=== PATIENT | male | born 1965 | race Caucasian/White ===

== ENCOUNTER 2016-10-06 08:33 | Inpatient (IN) | payer BC ==
[2016-10-06 08:11] LABS: Glucose,Whole Blood 175 mg/dL (75-99)
[~2016-10-06 08:33] MED LIST: ASPIRIN 81 MG CHEW ONE; SODIUM CHLORIDE 0.9% 1,000 ML IV ONE
[2016-10-06] MEDS ORDERED: SODIUM CHLORIDE 0.9% 1,000 ML in EMPTY BAG 1 BAG IV ONE (09:00)
[2016-10-06] MEDS ORDERED: ALPRAZolam 0.25 MG TAB PO PRN (09:00)
[2016-10-06] MEDS ORDERED: ASPIRIN 325 MG TAB PO STA (09:00)
[2016-10-06] MEDS ORDERED: ATORVASTATIN 80 MG TAB PO STA (09:00)
[2016-10-06] MEDS ORDERED: ALPRAZolam 0.5 MG TAB PO PRN (09:00)
[2016-10-06] MEDS ORDERED: NITROGLYCERIN SL TABS 0.4 MG TAB SUBLINGUAL PRN (09:00)
[2016-10-06 11:27] LABS: Glucose,Whole Blood 272 mg/dL (75-99)
[2016-10-06] MEDS ORDERED: LIDOCAINE 2% INJ 20 MG/ML SQ ONE (11:40)
[2016-10-06] MEDS ORDERED: diphenhydrAMINE 50 MG/ML 1 ML VIAL IVP ONE (11:41)
[2016-10-06] MEDS ORDERED: MIDAZOLAM 2 MG/2 ML VIAL IV ONE (11:41)
[2016-10-06] MEDS ORDERED: IOHEXOL 350 MG/ML 100 ML BOTTLE INJ ONE (12:12)
[2016-10-06] MEDS ORDERED: NITROGLYCERIN SL TABS 0.4 MG TAB SUBLINGUAL ONE (12:12)
[2016-10-06 12:14] LABS: Site FA
[2016-10-06 12:15] LABS: Site RA
[2016-10-06 12:15] LABS: Site PA
[2016-10-06 12:16] LABS: Site RV
[2016-10-06] MEDS ORDERED: RX INFO: IV CONTRAST WAS GIVEN 1 EACH MISC MISCELLANE PRN (12:18)
[2016-10-06 14:03] LABS: ALT 43 U/L (21-72); AST 33 U/L (17-59); Alkaline Phosphatase 50 U/L (38-126); Anion Gap 11 mmol/L; Blood Urea Nitrogen 34 mg/dL (9-20); Calcium 8.8 mg/dL (8.4-10.2); Carbon Dioxide 23 mmol/L (22-30); Chloride 104 mmol/L (98-107); Glucose 225 mg/dL (74-99); Non-African American GFR(MDRD) >60 (>60 ml/min/1.73 sqM); Potassium 4.3 mmol/L (3.5-5.1); Sodium 138 mmol/L (137-145); Total Bilirubin 0.9 mg/dL (0.2-1.3); Total Protein 5.5 g/dL (6.3-8.2)
[2016-10-06 15:06] LABS: Basophils % (A) 0 %; CH 29.9; CHCM 34.5; Eosinophils % (A) 0 %; HDW 3.03; HGB 15.4 gm/dL (13.0-17.5); Luc # (Auto) 0.34; Luc % (Auto) 3; Lymphocytes # (A) 1.9 k/uL (1.0-4.8); Lymphocytes % (A) 17 %; MCH 29.2 pg (25.0-35.0); MCHC 33.4 g/dL (31.0-37.0); MCV 87.3 fL (80.0-100.0); Mean Platelet Volume 7.2; Monocytes # (A) 0.6 k/uL (0-1.0); Monocytes % (A) 6 %; Neutrophils # (A) 8.2 k/uL (1.3-7.7); Neutrophils % (A) 74 %; RBC 5.26 m/uL (4.30-5.90); RDW 13.8 % (11.5-15.5); WBC 11.1 k/uL (3.8-10.6)
--- NOTE | 2016-10-06 15:09 | P.CNPUL ---
History of Present Illness Consult date: 10/06/16 Reason for consult: dyspnea, cough, chest pain, asthma, COPD, hypoxemia, pneumonia Chief complaint: Shortness of breath and hemoptysis History of present illness: Mr. Matt Guerrero is a 50-year-old male who seen and evaluated examined on 66 floor selective care after his cardiac cath and angiogram which was found to have a diffuse coronary artery disease patient is being considered for possibly CABG 4 by cardiothoracic surgery. This patient has not been doing well for almost 4 weeks with increased shortness breath cough. Sputum production lately has been associated with streaks of blood lately he's been more short of breath started having intermittent chest pain about a week prior to coming hospital started to have left shortness of breath patient admitted into the [facility] with uncontrolled hyperglycemia hemoptysis and very high elevated troponin up to 3 patient had hypertensive urgency and emergency as well however responded well with IV steroids insulin drip and nitro heparin and breathing treatments his hemoptysis is resolved his shortness of breath cough and wheezing improved and his blood pressure improved as well at that point decision was done to transfer the patient into the [facility] for cardiac cath and angiogram. Patient of note that has been a noncompliant has not been taking care of himself the problems associated with the hemoptysis cough shortness of breath and wheezing and diabetes has been relish continued to him he has not seen any doctor physician for many many years Review of Systems All systems: negative (Otherwise unremarkable and noncontributory) Past Medical History Past Medical History: Asthma, COPD, Diabetes Mellitus, GERD/Reflux, Hyperlipidemia, Hypertension Additional Past Medical History / Comment(s): bipolar (manic/depressive) History of Any Multi-Drug Resistant Organisms: None Reported Past Surgical History: Appendectomy Past Psychological History: Bipolar Smoking Status: Former smoker Medications and Allergies Home Medications Medication Instructions Recorded Confirmed Type Albuterol Inhaler [Ventolin Hfa 2 puff INHALATION RT-QID PRN 10/06/16 10/06/16 History Inhaler] Albuterol Nebulized [Ventolin 2.5 mg INHALATION RT-Q6H PRN 10/06/16 10/06/16 History Nebulized] Cetirizine HCl [Zyrtec] 10 mg PO DAILY 10/06/16 10/06/16 History Omeprazole 20 mg PO DAILY 10/06/16 10/06/16 History Allergies Allergy/AdvReac Type Severity Reaction Status Date / Time No Known Allergies Allergy Verified 10/06/16 14:21 Physical Exam Vitals: Vital Signs Temp Pulse Resp BP BP Pulse Ox 10/06/16 13:37 97.2 F L 18 136/85 98 10/06/16 07:56 98.0 F 93 18 128/85 135/90 97 Intake and Output 10/05/16 10/06/16 10/06/16 22:59 06:59 14:59 Intake Total 100 Balance 100 Intake: IV 100 Other: Weight 88.4 kg Patient Weight 10/07/16 06:59 Weight 88.4 kg - Constitutional General appearance: average body habitus, cooperative, disheveled, mild distress - EENT Eyes: EOMI, PERRLA, normal appearance ENT: hearing grossly normal, normal oropharynx Ears: bilateral: normal - Neck Neck: lymphadenopathy, normal ROM Carotids: bilateral: upstroke normal, bruit absent Thyroid: bilateral: normal size - Respiratory Respiratory: bilateral: wheezing (Fine wheezing on forced expiration), prolonged expiration - Cardiovascular Rhythm: regular Heart sounds: normal: S1, S2 - Gastrointestinal General gastrointestinal: distended, normal bowel sounds, soft - Integumentary Integumentary: calor, normal - Neurologic Neurologic: CNII-XII intact - Musculoskeletal Musculoskeletal: gait normal, strength equal bilaterally - Psychiatric Psychiatric: A&O x's 3, appropriate affect, intact judgment & insight Results - Laboratory Findings CBC and BMP: 10/06/16 13:38 Abnormal lab findings: Abnormal Labs 10/06/16 10/06/16 10/06/16 07:59 11:09 13:38 BUN 34 H Glucose 225 H POC Glucose (mg/dL) 175 H 272 H Total Protein 5.5 L Albumin 3.3 L Assessment and Plan Plan: Acute PR and diffuse coronary artery disease Hypertension hypertensive cardiovascular disease Dyslipidemia Diabetes mellitus poorly controlled type II with complications and sequelae Severe COPD emphysema Plan is to continue breathing treatments will hold on the steroids continue deep breathing exercises incentive spirometry would recommend proceeding with the surgery given diffuse coronary artery disease will follow clinical course closely and 3. Postoperative phase Time with Patient: Greater than 30
--- NOTE | 2016-10-06 15:33 | P.GSCN ---
<Kaz Avila - Last Filed: 10/06/16 14:24> History of Present Illness Consult date: 10/06/16 Reason for Consult: Non-STEMI, triple-vessel coronary artery disease. Requesting physician: Akosua Whelan History of present illness: This is a 50-year-old gentleman who does not follow with a primary care physician on a regular basis. He has past medical history of diabetes mellitus type 2 uncontrolled, hypertension, COPD, bipolar disorder, kidney stones, pneumonia over 10 years ago, and history of nicotine dependence which he quit 10 years ago. He also has a history of alcohol and drug addiction which he states that he has been in recovery for about 13 years. On 10/04/2016 the patient presented to the emergency department at [facility] with complaints of chest pain and worsening shortness of breath. He reports that he has been having chest pain and shortness of breath for a period of 4-6 weeks prior to presenting to the hospital. His shortness of breath was worse while lying flat. He also reports that he had quite severe edema to his bilateral lower extremities. The patient had a 12-lead EKG completed in the emergency department which showed anterior Q wave and was suggestive of a subacute myocardial infarction without ST elevation and nonspecific STT changes.patient also had lab work completed with a troponin as high as 3.34, hemoglobin A1c of 10.3, BUN of 23, creatinine of 0.99, WBC 14.8, hemoglobin 17.1, platelets were 227, and a BNP of 471. The patient also had a 2-D echocardiogram completed which showed trace aortic regurgitation, mild mitral valve regurgitation, trace tricuspid regurgitation, and a normal left ventricular size with moderate to severe hypokinesis in the apical inferior wall, apical septal wall, and apical lateral wall with an ejection fraction of 40%. The patient was admitted to [facility] for further treatment and evaluation and was started on a Lasix drip, beta caleb, ARB, aspirin and statin therapy. Subsequently he was transferred to [facility] for further cardiac workup and underwent a heart catheterization which demonstrated a 70% stenosis to his right coronary artery, 100% stenosis to his circumflex coronary artery, and a totally occluded left anterior descending coronary artery. Also during heart catheterization he underwent a left ventriculogram which showed him to have an ejection fraction of 35%. Due to his presenting symptoms and heart catheterization results a consult was placed for Dr. Klein from cardiothoracic surgery to discuss surgical options. Review of Systems A 14 point review of systems was completed and was negative except as mentioned in the HPI. Past Medical History Past Medical History: COPD, Diabetes Mellitus, GERD/Reflux, Hypertension, Myocardial Infarction (non Q-wave) Additional Past Medical History / Comment(s): bipolar (manic/depressive) History of Any Multi-Drug Resistant Organisms: None Reported Past Surgical History: Appendectomy, Orthopedic Surgery (Repair of left femur fracture) Past Anesthesia/Blood Transfusion Reactions: No Reported Reaction Past Psychological History: Bipolar Smoking Status: Former smoker (Quit 10 years ago he smoked 20 years prior to quitting) Past Alcohol Use History: None Reported (He is a recovering alcoholic 13 years) Past Drug Use History: None Reported (He has been in recovery for 13 years) - Past Family History Mother Family Medical History: COPD, GERD/Reflux, Hypertension Father Family Medical History: Cancer (Tongue cancer and history of prostate cancer), COPD, Coronary Artery Disease (CAD) (History of 5 stents), Diabetes Mellitus, Pneumonia, Prostate Disorder Additional Family Medical History / Comment(s): Bipolar disorder Medications and Allergies Home Medications Medication Instructions Recorded Confirmed Type Albuterol Inhaler [Ventolin Hfa 2 puff INHALATION RT-QID PRN 10/06/16 10/06/16 History Inhaler] Albuterol Nebulized [Ventolin 2.5 mg INHALATION RT-Q6H PRN 10/06/16 10/06/16 History Nebulized] Cetirizine HCl [Zyrtec] 10 mg PO DAILY 10/06/16 10/06/16 History Omeprazole 20 mg PO DAILY 10/06/16 10/06/16 History Allergies Allergy/AdvReac Type Severity Reaction Status Date / Time No Known Allergies Allergy Verified 10/10/16 06:26 Surgical - Exam Vital Signs Temp Pulse Resp BP Pulse Ox 98.0 F 93 18 128/85 97 10/06/16 07:56 10/06/16 07:56 10/06/16 07:56 10/06/16 07:56 10/06/16 07:56 - General well developed, well nourished, no distress, no pain, obese - Eyes PERRL, normal ocular movement - ENT normal pinna, normal nares, no hearing loss, no congestion, poor intermediate ( Missing teeth and evidence of decayed teeth) - Neck no masses, no bruits, trachea midline, no lymphadectomy, no venous distension - Respiratory normal expansion, normal respiratory effort, clear to percussion, clear to auscultation - Cardiovascular Regular rhythm and tachycardic rate. S1 and S2 present, negative for S3, gallop or murmur. No edema present. Remote telemetry showing sinus tachycardia heart rate 111. - Abdomen No organomegaly. Abdomen: soft, non tender, bowel sounds (To all 4 abdominal quadrants.) - Genitourinary Deferred - Rectum Deferred - Integumentary Patient has an ecchymotic and swollen area to his right forearm. no rash, no growths - Neurologic normal coordination, normal sensation - Musculoskeletal normal gait, normal posture - Psychiatric oriented to time, oriented to person, oriented to place, speech is normal, memory intact Results - Labs 10/06/16 13:38 Abnormal Lab Results - Last 24 Hours (Table) 10/06/16 10/06/16 10/06/16 Range/Units 07:59 11:09 13:38 BUN 34 H (9-20) mg/dL Glucose 225 H (74-99) mg/dL POC Glucose (mg/dL) 175 H 272 H (75-99) mg/dL Total Protein 5.5 L (6.3-8.2) g/dL Albumin 3.3 L (3.5-5.0) g/dL Diabetes panel 10/06/16 Range/Units 13:38 Sodium 138 (137-145) mmol/L Potassium 4.3 (3.5-5.1) mmol/L Chloride 104 (98-107) mmol/L Carbon Dioxide 23 (22-30) mmol/L BUN 34 H (9-20) mg/dL Creatinine 0.98 (0.66-1.25) mg/dL Glucose 225 H (74-99) mg/dL Calcium 8.8 (8.4-10.2) mg/dL AST 33 (17-59) U/L ALT 43 (21-72) U/L Alkaline Phosphatase 50 (38-126) U/L Total Protein 5.5 L (6.3-8.2) g/dL Albumin 3.3 L (3.5-5.0) g/dL Calcium panel 10/06/16 Range/Units 13:38 Calcium 8.8 (8.4-10.2) mg/dL Albumin 3.3 L (3.5-5.0) g/dL Pituitary panel 10/06/16 Range/Units 13:38 Sodium 138 (137-145) mmol/L Potassium 4.3 (3.5-5.1) mmol/L Chloride 104 (98-107) mmol/L Carbon Dioxide 23 (22-30) mmol/L BUN 34 H (9-20) mg/dL Creatinine 0.98 (0.66-1.25) mg/dL Glucose 225 H (74-99) mg/dL Calcium 8.8 (8.4-10.2) mg/dL Adrenal panel 10/06/16 Range/Units 13:38 Sodium 138 (137-145) mmol/L Potassium 4.3 (3.5-5.1) mmol/L Chloride 104 (98-107) mmol/L Carbon Dioxide 23 (22-30) mmol/L BUN 34 H (9-20) mg/dL Creatinine 0.98 (0.66-1.25) mg/dL Glucose 225 H (74-99) mg/dL Calcium 8.8 (8.4-10.2) mg/dL Total Bilirubin 0.9 (0.2-1.3) mg/dL AST 33 (17-59) U/L ALT 43 (21-72) U/L Alkaline Phosphatase 50 (38-126) U/L Total Protein 5.5 L (6.3-8.2) g/dL Albumin 3.3 L (3.5-5.0) g/dL - Imaging Comments: 2-D echocardiogram report reviewed, cardiac catheterization report reviewed. Chest x-ray: report reviewed EKG: image reviewed Assessment and Plan (1) Non-STEMI (non-ST elevated myocardial infarction) Status: Acute (2) Coronary artery disease Status: Acute (3) Hypertension Status: Acute (4) COPD (chronic obstructive pulmonary disease) Status: Acute (5) Uncontrolled type 2 diabetes mellitus Status: Acute (6) GERD (gastroesophageal reflux disease) Status: Acute (7) Hemoglobin A1C greater than 9%, indicating poor diabetic control Status: Acute (8) CHF NYHA class III (symptoms with mildly strenuous activities) Status: Acute Plan: Patient was seen and examined. Chart and diagnostics were reviewed. The case was discussed with Dr. Klein and further surgical recommendations will be made. Preoperative testing and diagnostics have been ordered. Preoperative teaching initiated with the patient and his family who were at his bedside. All questions have been answered. Incentive spirometry ordered. Thank Dr. JEFF Whelan for the consult we look forward to working with you in the care of your patient. Time with Patient: Greater than 30 <Ramesh Klein - Last Filed: 10/12/16 10:44> Surgical - Exam Vital Signs Temp Pulse Resp BP Pulse Ox 98.0 F 93 18 128/85 97 10/06/16 07:56 10/06/16 07:56 10/06/16 07:56 10/06/16 07:56 10/06/16 07:56 Results - Labs 10/12/16 04:45 10/12/16 04:45 Abnormal Lab Results - Last 24 Hours (Table) 10/10/16 10/10/16 10/10/16 Range/Units 08:38 09:48 10:43 WBC (3.8-10.6) k/uL RBC (4.30-5.90) m/uL Hgb (13.0-17.5) gm/dL Hct (39.0-53.0) % Plt Count (150-450) k/uL Neutrophils # (1.3-7.7) k/uL Monocytes # (0-1.0) k/uL INR (<1.2) ABG pH 7.34 L (7.35-7.45) ABG pCO2 46 H (35-45) mmHg ABG pO2 319 H 183 H (83-108) mmHg ABG HCO3 (21-25) mmol/L ABG Total CO2 26 H 26 H (19-24) mmol/L ABG O2 Saturation 99.9 H 97.2 H 99.7 H (94-97) % ABG Hematocrit (34.0-46.0) % ABG Potassium (3.4-4.5) mmol/L Creatinine (0.66-1.25) mg/dL Glucose (74-99) mg/dL POC Glucose (mg/dL) (75-99) mg/dL Total Protein (6.3-8.2) g/dL Albumin (3.5-5.0) g/dL Triglycerides (<150) mg/dL HDL Cholesterol (40-60) mg/dL Arterial Blood Potassium (3.4-4.5) mmol/L 10/10/16 10/10/16 10/11/16 Range/Units 11:12 11:39 11:08 WBC (3.8-10.6) k/uL RBC (4.30-5.90) m/uL Hgb (13.0-17.5) gm/dL Hct (39.0-53.0) % Plt Count (150-450) k/uL Neutrophils # (1.3-7.7) k/uL Monocytes # (0-1.0) k/uL INR (<1.2) ABG pH 7.30 L (7.35-7.45) ABG pCO2 54 H (35-45) mmHg ABG pO2 252 H 187 H (83-108) mmHg ABG HCO3 26 H (21-25) mmol/L ABG Total CO2 28 H 26 H (19-24) mmol/L ABG O2 Saturation 99.8 H 99.6 H (94-97) % ABG Hematocrit 29 L 30 L (34.0-46.0) % ABG Potassium 5.0 H 4.9 H (3.4-4.5) mmol/L Creatinine (0.66-1.25) mg/dL Glucose (74-99) mg/dL POC Glucose (mg/dL) 172 H (75-99) mg/dL Total Protein (6.3-8.2) g/dL Albumin (3.5-5.0) g/dL Triglycerides (<150) mg/dL HDL Cholesterol (40-60) mg/dL Arterial Blood Potassium 5.0 H 4.9 H (3.4-4.5) mmol/L 10/11/16 10/11/16 10/11/16 Range/Units 12:24 13:05 14:05 WBC (3.8-10.6) k/uL RBC (4.30-5.90) m/uL Hgb (13.0-17.5) gm/dL Hct (39.0-53.0) % Plt Count (150-450) k/uL Neutrophils # (1.3-7.7) k/uL Monocytes # (0-1.0) k/uL INR (<1.2) ABG pH (7.35-7.45) ABG pCO2 (35-45) mmHg ABG pO2 (83-108) mmHg ABG HCO3 (21-25) mmol/L ABG Total CO2 (19-24) mmol/L ABG O2 Saturation (94-97) % ABG Hematocrit (34.0-46.0) % ABG Potassium (3.4-4.5) mmol/L Creatinine (0.66-1.25) mg/dL Glucose (74-99) mg/dL POC Glucose (mg/dL) 174 H 171 H 180 H (75-99) mg/dL Total Protein (6.3-8.2) g/dL Albumin (3.5-5.0) g/dL Triglycerides (<150) mg/dL HDL Cholesterol (40-60) mg/dL Arterial Blood Potassium (3.4-4.5) mmol/L 10/11/16 10/11/16 10/11/16 Range/Units 15:05 16:14 17:50 WBC (3.8-10.6) k/uL RBC (4.30-5.90) m/uL Hgb (13.0-17.5) gm/dL Hct (39.0-53.0) % Plt Count (150-450) k/uL Neutrophils # (1.3-7.7) k/uL Monocytes # (0-1.0) k/uL INR (<1.2) ABG pH 7.48 H (7.35-7.45) ABG pCO2 (35-45) mmHg ABG pO2 74 L (83-108) mmHg ABG HCO3 26 H (21-25) mmol/L ABG Total CO2 27 H (19-24) mmol/L ABG O2 Saturation (94-97) % ABG Hematocrit (34.0-46.0) % ABG Potassium (3.4-4.5) mmol/L Creatinine (0.66-1.25) mg/dL Glucose (74-99) mg/dL POC Glucose (mg/dL) 180 H 179 H (75-99) mg/dL Total Protein (6.3-8.2) g/dL Albumin (3.5-5.0) g/dL Triglycerides (<150) mg/dL HDL Cholesterol (40-60) mg/dL Arterial Blood Potassium (3.4-4.5) mmol/L 10/11/16 10/11/16 10/11/16 Range/Units 18:51 20:09 22:03 WBC (3.8-10.6) k/uL RBC (4.30-5.90) m/uL Hgb (13.0-17.5) gm/dL Hct (39.0-53.0) % Plt Count (150-450) k/uL Neutrophils # (1.3-7.7) k/uL Monocytes # (0-1.0) k/uL INR (<1.2) ABG pH (7.35-7.45) ABG pCO2 (35-45) mmHg ABG pO2 (83-108) mmHg ABG HCO3 (21-25) mmol/L ABG Total CO2 (19-24) mmol/L ABG O2 Saturation (94-97) % ABG Hematocrit (34.0-46.0) % ABG Potassium (3.4-4.5) mmol/L Creatinine (0.66-1.25) mg/dL Glucose (74-99) mg/dL POC Glucose (mg/dL) 164 H 167 H 152 H (75-99) mg/dL Total Protein (6.3-8.2) g/dL Albumin (3.5-5.0) g/dL Triglycerides (<150) mg/dL HDL Cholesterol (40-60) mg/dL Arterial Blood Potassium (3.4-4.5) mmol/L 10/12/16 10/12/16 10/12/16 Range/Units 00:27 02:33 04:45 WBC (3.8-10.6) k/uL RBC (4.30-5.90) m/uL Hgb (13.0-17.5) gm/dL Hct (39.0-53.0) % Plt Count (150-450) k/uL Neutrophils # (1.3-7.7) k/uL Monocytes # (0-1.0) k/uL INR (<1.2) ABG pH (7.35-7.45) ABG pCO2 (35-45) mmHg ABG pO2 (83-108) mmHg ABG HCO3 (21-25) mmol/L ABG Total CO2 (19-24) mmol/L ABG O2 Saturation (94-97) % ABG Hematocrit (34.0-46.0) % ABG Potassium (3.4-4.5) mmol/L Creatinine 0.60 L (0.66-1.25) mg/dL Glucose 169 H (74-99) mg/dL POC Glucose (mg/dL) 147 H 169 H (75-99) mg/dL Total Protein 4.6 L (6.3-8.2) g/dL Albumin 2.8 L (3.5-5.0) g/dL Triglycerides (<150) mg/dL HDL Cholesterol (40-60) mg/dL Arterial Blood Potassium (3.4-4.5) mmol/L 10/12/16 10/12/16 10/12/16 Range/Units 04:45 04:45 04:45 WBC 13.0 H (3.8-10.6) k/uL RBC 3.13 L (4.30-5.90) m/uL Hgb 9.5 L (13.0-17.5) gm/dL Hct 27.0 L (39.0-53.0) % Plt Count 112 L (150-450) k/uL Neutrophils # 10.3 H (1.3-7.7) k/uL Monocytes # 1.2 H (0-1.0) k/uL INR 1.2 H (<1.2) ABG pH (7.35-7.45) ABG pCO2 (35-45) mmHg ABG pO2 (83-108) mmHg ABG HCO3 (21-25) mmol/L ABG Total CO2 (19-24) mmol/L ABG O2 Saturation (94-97) % ABG Hematocrit (34.0-46.0) % ABG Potassium (3.4-4.5) mmol/L Creatinine (0.66-1.25) mg/dL Glucose (74-99) mg/dL POC Glucose (mg/dL) 178 H (75-99) mg/dL Total Protein (6.3-8.2) g/dL Albumin (3.5-5.0) g/dL Triglycerides (<150) mg/dL HDL Cholesterol (40-60) mg/dL Arterial Blood Potassium (3.4-4.5) mmol/L 10/12/16 10/12/16 10/12/16 Range/Units 04:45 06:01 08:21 WBC (3.8-10.6) k/uL RBC (4.30-5.90) m/uL Hgb (13.0-17.5) gm/dL Hct (39.0-53.0) % Plt Count (150-450) k/uL Neutrophils # (1.3-7.7) k/uL Monocytes # (0-1.0) k/uL INR (<1.2) ABG pH (7.35-7.45) ABG pCO2 (35-45) mmHg ABG pO2 (83-108) mmHg ABG HCO3 (21-25) mmol/L ABG Total CO2 (19-24) mmol/L ABG O2 Saturation (94-97) % ABG Hematocrit (34.0-46.0) % ABG Potassium (3.4-4.5) mmol/L Creatinine (0.66-1.25) mg/dL Glucose (74-99) mg/dL POC Glucose (mg/dL) 187 H 193 H (75-99) mg/dL Total Protein (6.3-8.2) g/dL Albumin (3.5-5.0) g/dL Triglycerides 163 H (<150) mg/dL HDL Cholesterol 19 L (40-60) mg/dL Arterial Blood Potassium (3.4-4.5) mmol/L 10/12/16 Range/Units 08:58 WBC (3.8-10.6) k/uL RBC (4.30-5.90) m/uL Hgb (13.0-17.5) gm/dL Hct (39.0-53.0) % Plt Count (150-450) k/uL Neutrophils # (1.3-7.7) k/uL Monocytes # (0-1.0) k/uL INR (<1.2) ABG pH (7.35-7.45) ABG pCO2 (35-45) mmHg ABG pO2 (83-108) mmHg ABG HCO3 (21-25) mmol/L ABG Total CO2 (19-24) mmol/L ABG O2 Saturation (94-97) % ABG Hematocrit (34.0-46.0) % ABG Potassium (3.4-4.5) mmol/L Creatinine (0.66-1.25) mg/dL Glucose (74-99) mg/dL POC Glucose (mg/dL) 187 H (75-99) mg/dL Total Protein (6.3-8.2) g/dL Albumin (3.5-5.0) g/dL Triglycerides (<150) mg/dL HDL Cholesterol (40-60) mg/dL Arterial Blood Potassium (3.4-4.5) mmol/L Diabetes panel 10/12/16 10/12/16 Range/Units 04:45 04:45 Sodium 139 (137-145) mmol/L Potassium 3.7 (3.5-5.1) mmol/L Chloride 106 (98-107) mmol/L Carbon Dioxide 25 (22-30) mmol/L BUN 18 (9-20) mg/dL Creatinine 0.60 L (0.66-1.25) mg/dL Glucose 169 H (74-99) mg/dL Calcium 8.5 (8.4-10.2) mg/dL AST 44 (17-59) U/L ALT 41 (21-72) U/L Alkaline Phosphatase 40 (38-126) U/L Total Protein 4.6 L (6.3-8.2) g/dL Albumin 2.8 L (3.5-5.0) g/dL Triglycerides 163 H (<150) mg/dL HDL Cholesterol 19 L (40-60) mg/dL Calcium panel 10/12/16 Range/Units 04:45 Calcium 8.5 (8.4-10.2) mg/dL Ionized Calcium [place]helle 4.9 (4.5-5.3) mg/dL Albumin 2.8 L (3.5-5.0) g/dL Pituitary panel 10/12/16 Range/Units 04:45 Sodium 139 (137-145) mmol/L Potassium 3.7 (3.5-5.1) mmol/L Chloride 106 (98-107) mmol/L Carbon Dioxide 25 (22-30) mmol/L BUN 18 (9-20) mg/dL Creatinine 0.60 L (0.66-1.25) mg/dL Glucose 169 H (74-99) mg/dL Calcium 8.5 (8.4-10.2) mg/dL Adrenal panel 10/12/16 Range/Units 04:45 Sodium 139 (137-145) mmol/L Potassium 3.7 (3.5-5.1) mmol/L Chloride 106 (98-107) mmol/L Carbon Dioxide 25 (22-30) mmol/L BUN 18 (9-20) mg/dL Creatinine 0.60 L (0.66-1.25) mg/dL Glucose 169 H (74-99) mg/dL Calcium 8.5 (8.4-10.2) mg/dL Total Bilirubin 0.8 (0.2-1.3) mg/dL AST 44 (17-59) U/L ALT 41 (21-72) U/L Alkaline Phosphatase 40 (38-126) U/L Total Protein 4.6 L (6.3-8.2) g/dL Albumin 2.8 L (3.5-5.0) g/dL Assessment and Plan Plan: The patient was seen and examined. I agree with the above assessment and plan. The patient's cardiac catheterization was personally reviewed. He does appear to have targets suitable for bypass. A coronary artery bypass is recommended. The risks, benefits, and alternatives to this procedure including but not limited to the risk of infection, bleeding, need for blood transfusion, stroke, myocardial infarction, pneumonia, dialysis, and were discussed with the patient and his mother. All their questions were answered. The patient is currently symptom free and hemodynamically stable. We will plan on performing his procedure on October 10.
[2016-10-06 15:57] LABS: Cholesterol 200 mg/dL (<200); HDL Cholesterol 35 mg/dL (40-60)
[2016-10-06] MEDS: SODIUM CHLORIDE 0.9% 1,000 ML IV SCH (16:03)
[2016-10-06 16:06] LABS: INR 1.1 (<1.2); Prothrombin Time 11.3 sec (9.0-12.0)
[2016-10-06 16:12] LABS: Partial Thromboplastin Time 21.5 sec (22.0-30.0)
[2016-10-06 16:26] LABS: Appearance,Urine Clear (Clear); Bilirubin,Urine Negative (Negative); Glucose,Urine (UA) 3+ (Negative); Ketones,Urine Negative (Negative); Leukocyte Esterase,Urine Negative (Negative); Nitrite,Urine Negative (Negative); PH, Urine 5.5 (5.0-8.0); Protein,Urine Negative (Negative); Specific Gravity,Urine 1.039 (1.001-1.035); UA Billing (MACRO vs. MICRO) CHEM; Urobilinogen,Urine <2.0 mg/dL (<2.0)
[2016-10-06 16:29] LABS: Hepatitis B Surface Ag Index 0.05
[2016-10-06 16:34] LABS: Hepatitis B Core IgM Index 0.01
[2016-10-06] MEDS: FUROSEMIDE 20 MG TAB PO SCH (16:43)
[2016-10-06] MEDS: INSULIN LISPRO (humaLOG) 300 UNIT/3 ML VIAL SQ SCH ×2 (16:43→21:39)
[2016-10-06] MEDS: CARVEDILOL 6.25 MG TAB PO SCH (16:44)
[2016-10-06 16:46] LABS: Hepatitis C Virus IgG Ab Negative (Negative); Hepatitis C Virus IgG Index 0.03
[2016-10-06 17:03] LABS: Glucose,Whole Blood 256 mg/dL (75-99)
[2016-10-06] MEDS ORDERED: INSULIN LISPRO (humaLOG) 300 UNIT/3 ML VIAL SQ SCH ×2 (17:30)
[2016-10-06 19:53] LABS: Hemoglobin A1C 10.4 % (4.2-6.1)
[2016-10-06] MEDS: HEPARIN SODIUM,PORCINE 5,000 UNIT/ML 1 ML VIAL SQ SCH (20:15)
[2016-10-06] MEDS: MUPIROCIN 2% OINT 22 GM TUBE NASAL SCH (20:19)
[2016-10-06 20:51] LABS: Glucose,Whole Blood 359 mg/dL (75-99)
[2016-10-06] MEDS: INSULIN GLARGINE 100 UNIT/ML 10 ML VIAL SQ SCH (21:39)
[2016-10-07 05:47] LABS: Glucose,Whole Blood 201 mg/dL (75-99)
[2016-10-07] MEDS: SODIUM CHLORIDE 0.9% 1,000 ML IV SCH (06:17)
[2016-10-07] MEDS: CARVEDILOL 6.25 MG TAB PO SCH ×2 (06:20→16:23)
[2016-10-07] MEDS: INSULIN LISPRO (humaLOG) 300 UNIT/3 ML VIAL SQ SCH ×4 (06:20→22:18)
[2016-10-07 06:53] LABS: Basophils % (A) 0 %; CH 29.9; CHCM 35.2; Eosinophils # (A) 0.1 k/uL (0-0.7); Eosinophils % (A) 1 %; HCT 43.4 % (39.0-53.0); HDW 3.06; HGB 15.3 gm/dL (13.0-17.5); Luc # (Auto) 0.42; Luc % (Auto) 4; Lymphocytes % (A) 21 %; MCH 30.1 pg (25.0-35.0); MCHC 35.3 g/dL (31.0-37.0); MCV 85.3 fL (80.0-100.0); Monocytes # (A) 0.7 k/uL (0-1.0); Monocytes % (A) 8 %; Neutrophils # (A) 6.2 k/uL (1.3-7.7); Neutrophils % (A) 66 %; RBC 5.09 m/uL (4.30-5.90); RDW 13.3 % (11.5-15.5); WBC 9.5 k/uL (3.8-10.6); WBC (Perox) 9.73
[2016-10-07 07:01] LABS: Anion Gap 8 mmol/L; Blood Urea Nitrogen 34 mg/dL (9-20); Calcium 8.9 mg/dL (8.4-10.2); Carbon Dioxide 24 mmol/L (22-30); Chloride 104 mmol/L (98-107); Glucose 208 mg/dL (74-99); Non-African American GFR(MDRD) >60 (>60 ml/min/1.73 sqM); Potassium 3.8 mmol/L (3.5-5.1); Sodium 136 mmol/L (137-145)
[2016-10-07] MEDS: ATORVASTATIN 40 MG TAB PO SCH (07:41)
[2016-10-07] MEDS: HEPARIN SODIUM,PORCINE 5,000 UNIT/ML 1 ML VIAL SQ SCH ×2 (07:41→20:40)
[2016-10-07] MEDS: SPIRONOLACTONE 25 MG TAB PO SCH (07:41)
[2016-10-07] MEDS: FUROSEMIDE 20 MG TAB PO SCH ×2 (07:41→16:23)
[2016-10-07] MEDS: ASPIRIN 81 MG CHEW PO SCH (07:42)
[2016-10-07] MEDS: LOSARTAN 50 MG TAB PO SCH (07:42)
[2016-10-07] MEDS: MUPIROCIN 2% OINT 22 GM TUBE NASAL SCH ×2 (07:44→20:40)
--- NOTE | 2016-10-07 07:53 | US ---
EXAMINATION TYPE: US carotid duplex BILAT DATE OF EXAM: 10/06/2016 COMPARISON: NONE CLINICAL HISTORY: PreOp Cardiac Surgery. EXAM MEASUREMENTS: RIGHT: Peak Systolic Velocity (PSV) cm/sec ----- Right CCA: 107.5 ----- Right ICA: 63.7 ----- Right ECA: 118.1 ICA/CCA ratio: 0.9 RIGHT: End Diastole cm/sec ----- Right CCA: 15.9 ----- Right ICA: 27.7 ----- Right ECA: 0 LEFT: Peak Systolic Velocity (PSV) cm/sec ----- Left CCA: 97.4 ----- Left ICA: 65.0 ----- Left ECA: 101.5 ICA/CCA ratio: 0.7 LEFT: End Diastole cm/sec ----- Left CCA: 19.4 ----- Left ICA: 29.6 ----- Left ECA: 12.4 VERTEBRALS (direction of flow): Right Vertebral: Antegrade Left Vertebral: Antegrade No significant stenosis visualized IMPRESSION: 1. No evidence of hemodynamically significant stenosis. 2. Globally prominent peak systolic velocities may represent underlying hypertension.
--- NOTE | 2016-10-07 07:59 | XR ---
EXAMINATION TYPE: XR chest 2V DATE OF EXAM: 10/06/2016 COMPARISON: 10/06/2016 HISTORY: Preop surgical clearance TECHNIQUE: Frontal and lateral views of the chest are obtained. FINDINGS: There is no focal air space opacity or pneumothorax. Small bilateral pleural effusions are noted. The cardiac silhouette size is within normal limits. The osseous structures are intact. IMPRESSION: Small pleural effusions with no focal consolidation.
--- NOTE | 2016-10-07 08:53 | P.PN ---
Subjective Principal diagnosis: Patient seen and evaluated examined during the rounds he is breathing comfortably cough congestion shortness of breath is there but stable and improved he is being evaluated by cardiothoracic surgery for bypass surgery, from respiratory standpoint doing relatively better. Patient has been evaluated by cardiothoracic surgery and cardiology their recommendations reviewed Mr. Matt Guerrero is a 50-year-old male who seen and evaluated examined on 66 floor selective care after his cardiac cath and angiogram which was found to have a diffuse coronary artery disease patient is being considered for possibly CABG 4 by cardiothoracic surgery. This patient has not been doing well for almost 4 weeks with increased shortness breath cough. Sputum production lately has been associated with streaks of blood lately he's been more short of breath started having intermittent chest pain about a week prior to coming hospital started to have left shortness of breath patient admitted into the [facility] with uncontrolled hyperglycemia hemoptysis and very high elevated troponin up to 3 patient had hypertensive urgency and emergency as well however responded well with IV steroids insulin drip and nitro heparin and breathing treatments his hemoptysis is resolved his shortness of breath cough and wheezing improved and his blood pressure improved as well at that point decision was done to transfer the patient into the [facility] for cardiac cath and angiogram. Patient of note that has been a noncompliant has not been taking care of himself the problems associated with the hemoptysis cough shortness of breath and wheezing and diabetes has been relish continued to him he has not seen any doctor physician for many many years As dictated above Objective - Vital Signs Vital signs: Vital Signs Temp 97.6 F 10/07/16 07:39 Pulse 92 10/07/16 07:49 Resp 16 10/07/16 07:39 BP 135/83 10/07/16 07:39 Pulse Ox 95 10/07/16 07:39 Intake & Output 10/06/16 10/07/16 10/07/16 18:59 06:59 18:59 Intake Total 100 900 Output Total 1400 Balance 100 -500 Weight 88.4 kg 89.1 kg Intake: IV 100 900 Sodium Chloride 0.9% 1, 900 000 ml @ 75 mls/hr IV . [id number] Rx#:[id number] Output: Urine 1400 Other: Voiding Method Toilet Urinal # Voids 1 - Exam - Constitutional General appearance: average body habitus, cooperative, disheveled, mild distress - EENT Eyes: EOMI, PERRLA, normal appearance ENT: hearing grossly normal, normal oropharynx Ears: bilateral: normal - Neck Neck: lymphadenopathy, normal ROM Carotids: bilateral: upstroke normal, bruit absent Thyroid: bilateral: normal size - Respiratory Respiratory: bilateral: wheezing (Fine wheezing on forced expiration), prolonged expiration - Cardiovascular Rhythm: regular Heart sounds: normal: S1, S2 - Gastrointestinal General gastrointestinal: distended, normal bowel sounds, soft - Integumentary Integumentary: calor, normal - Neurologic Neurologic: CNII-XII intact - Musculoskeletal Musculoskeletal: gait normal, strength equal bilaterally - Psychiatric Psychiatric: A&O x's 3, appropriate affect, intact judgment & insig - Labs CBC & Chem 7: 10/07/16 06:11 10/07/16 06:11 Labs: Abnormal Lab Results - Last 24 Hours (Table) 10/06/16 10/06/16 10/06/16 Range/Units 11:09 13:38 13:38 WBC 11.1 H (3.8-10.6) k/uL Neutrophils # 8.2 H (1.3-7.7) k/uL APTT (22.0-30.0) sec Sodium (137-145) mmol/L BUN 34 H (9-20) mg/dL Glucose 225 H (74-99) mg/dL POC Glucose (mg/dL) 272 H (75-99) mg/dL Hemoglobin A1c (4.2-6.1) % Total Protein 5.5 L (6.3-8.2) g/dL Albumin 3.3 L (3.5-5.0) g/dL Triglycerides (<150) mg/dL Cholesterol (<200) mg/dL LDL Cholesterol, Calc (0-99) mg/dL HDL Cholesterol (40-60) mg/dL Ur Specific Garrison (1.001-1.035) Urine Glucose (UA) (Negative) 10/06/16 10/06/16 10/06/16 Range/Units 13:38 13:38 13:38 WBC (3.8-10.6) k/uL Neutrophils # (1.3-7.7) k/uL APTT 21.5 L (22.0-30.0) sec Sodium (137-145) mmol/L BUN (9-20) mg/dL Glucose (74-99) mg/dL POC Glucose (mg/dL) (75-99) mg/dL Hemoglobin A1c 10.4 H (4.2-6.1) % Total Protein (6.3-8.2) g/dL Albumin (3.5-5.0) g/dL Triglycerides 261 H (<150) mg/dL Cholesterol 200 H (<200) mg/dL LDL Cholesterol, Calc 113 H (0-99) mg/dL HDL Cholesterol 35 L (40-60) mg/dL Ur Specific Garrison (1.001-1.035) Urine Glucose (UA) (Negative) 10/06/16 10/06/16 10/06/16 Range/Units 15:52 16:42 20:48 WBC (3.8-10.6) k/uL Neutrophils # (1.3-7.7) k/uL APTT (22.0-30.0) sec Sodium (137-145) mmol/L BUN (9-20) mg/dL Glucose (74-99) mg/dL POC Glucose (mg/dL) 256 H 359 H (75-99) mg/dL Hemoglobin A1c (4.2-6.1) % Total Protein (6.3-8.2) g/dL Albumin (3.5-5.0) g/dL Triglycerides (<150) mg/dL Cholesterol (<200) mg/dL LDL Cholesterol, Calc (0-99) mg/dL HDL Cholesterol (40-60) mg/dL Ur Specific Garrison 1.039 H (1.001-1.035) Urine Glucose (UA) 3+ H (Negative) 10/07/16 10/07/16 Range/Units 05:46 06:11 WBC (3.8-10.6) k/uL Neutrophils # (1.3-7.7) k/uL APTT (22.0-30.0) sec Sodium 136 L (137-145) mmol/L BUN 34 H (9-20) mg/dL Glucose 208 H (74-99) mg/dL POC Glucose (mg/dL) 201 H (75-99) mg/dL Hemoglobin A1c (4.2-6.1) % Total Protein (6.3-8.2) g/dL Albumin (3.5-5.0) g/dL Triglycerides (<150) mg/dL Cholesterol (<200) mg/dL LDL Cholesterol, Calc (0-99) mg/dL HDL Cholesterol (40-60) mg/dL Ur Specific Garrison (1.001-1.035) Urine Glucose (UA) (Negative) Microbiology - Last 24 Hours (Table) 10/06/16 16:41 Nasal Screen MRSA/MSSA ([place]) - Preliminary Nasal Swab 10/06/16 15:52 Urine Culture - Preliminary Urine,Clean Catch Assessment and Plan Plan: Acute MN and diffuse coronary artery disease Hypertension hypertensive cardiovascular disease Dyslipidemia Diabetes mellitus poorly controlled type II with complications and sequelae Severe COPD and emphysema Hemoptysis likely related to bronchial inflammation better under control no active process noted now Plan is to continue breathing treatments will hold on the steroids continue deep breathing exercises incentive spirometry would recommend proceeding with the surgery given diffuse coronary artery disease will follow clinical course closely during pre-, Tiffanie and Postoperative phase Time with Patient: Greater than 30
[2016-10-07 11:47] LABS: Glucose,Whole Blood 343 mg/dL (75-99)
--- NOTE | 2016-10-07 12:36 | CC ---
DATE OF SERVICE: 10/06/2016 PROCEDURE: Right and left heart catheterization, coronary angiography and left ventriculography. PERFORMED BY: Dr. Alireza Whelan. CLINICAL INFORMATION: Mr. Matt Guerrero is a 50 -year-old gentleman with history of Type 2 diabetes, bronchial asthma who never took care of himself and never took any medications, came into the hospital with congestive heart failure. He was admitted to [facility] [place] about 48 hours ago with what appeared to be a subacute myocardial infarction of at least one week duration with troponins that showed already a downward trend. He was in significant heart failure which was addressed aggressively. After clearing from the heart failure, and symptomatically he was stable and better, he was brought over for coronary angiography. Risks, benefits, option and rationale were explained to the patient and family. PROCEDURE NOTE: Under local anesthesia and strict aseptic precautions, a 6 Ethiopian introducer was placed in the right femoral artery and an 8 Ethiopian introducer in the right femoral vein. Using a balloon tipped ( ) catheter, I performed right heart catheterization and obtained thermal dilution cardiac output as well as saturations. Subsequently, I performed coronary angiography with standard Mario catheter and a pigtail catheter was used to perform LV gram. The sheath was taken out and manual compression was used to secure hemostasis. He was sent to the room in stable condition. The findings and results were discussed with the patient and family members. CARDIAC CATHETERIZATION FINDINGS: The left ventricle end diastolic pressure was about 22 mmHg and there was no gradient across the aortic valve. The right atrial pressure was 5 mmHg, right ventricular pressure was 36/5. Pulmonary arterial pressure was 36/16 with a mean of 26. Pulmonary capillary wedge pressure was 16 mmHg. Thermal dilution cardiac output was 5.1 L and Tika cardiac output was 5.3 L. The femoral arterial saturation was 94% and pulmonary arterial saturation was 70%. There was no oxygen stepoff noted. CORONARY ANGIOGRAPHY FINDINGS: Right coronary artery is technically a very dominant vessel, has proximal stenosis of 70 to 80%, mid stenosis of another 70 to 80% and then bifurcates into PDA and PLV. The PLV is large and disease free with minor irregularities. PDA has 40% mid lesion but is also a good caliber good distribution vessel. The dominant RCA therefore is highly diseased in the proximal as well as mid portion but the distal segment is free and bypassable and both branches do not have critical lesions but PLV is a larger branch. Left main coronary artery: This is a diffusely diseased vessel, has no critical lesions, maybe 20 to 25% narrowing noted distally. It bifurcates into LAD and circumflex. Left anterior descending coronary artery: This vessel is totally occluded in the mid portion but prior to the total occlusion, there are two good sized diagonal branches that have diffuse disease and mild calcification but both of them appear to be graftable. There are two large septal branches that have disease in the proximal portion but supply fair amount of myocardium. The LAD is totally occluded after the second diagonal branch but there is 90% lesion before the second diagonal branch as well. On injection of the left coronary artery, there is a lead filling of the LAD seen distally and this is supplying an area of significant hypokinesia but this is probably a graftable LAD. The diagonals have independent lesions. LAD is subtotally occluded with a very slow sluggish flow distally. Left posterior circumflex coronary artery: Technically this is a nondominant vessel which gives off what seems to be one obtuse marginal proximally and then there is not much flow distally. This does not appear to be a graftable vessel. The caliber of the circumflex that is opacified which is totally occluded is fairly large. LEFT VENTRICULOGRAM: This was performed in 30 degree WALTERS projection and revealed a left ventricle which is upper limits of normal with anteroapical and inferoapical hypokinesia of a severe degree. The anterior apical wall appears to be almost akinetic and the inferior apical is hypokinetic. There is no significant mitral regurgitation noted. The ejection fraction is between 35 to 40% by visual inspection. FINAL IMPRESSION: This patient has severe triple vessel disease with total occlusion of the mid LAD and proximal circumflex. The two diagonal branches of the LAD are graftable. The RCA has significant lesion. It is a very dominant vessel. There is a proximal and mid lesion but the branches of the RCA are relatively disease free and distal RCA is graftable. There is an ejection fraction of 35 to 40% with elevated filling pressures. There is no significant pulmonary hypertension. Cardiac output is 5.3 L and there is no oxygen stepoff. RECOMMENDATIONS: This patient will benefit from aortic coronary bypass surgery with grafts to the two diagonal branches and distal branch of the distal RCA and possibly to the LAD as well. The findings were discussed with the patient and family. I also spoke to Dr. Trae Magana. This patients blood sugar control needs to be optimized prior to any surgery. This has to be addressed to help in the outcome of surgery as well. This was explained to the patient and family. He will be sent to telemetry unit. Moderate conscious sedation was provided for a total duration of about 35 minutes. The patient was given Benadryl and Versed. He tolerated the procedure well without complications. SUKHDEEP
--- NOTE | 2016-10-07 13:35 | HP ---
CHIEF COMPLAINT: NSTEMI triple vessel heart disease. 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 He was found to have acute NSTEMI, anterior wave and Q wave ( ) myocardial infarction NSTEMI. He was admitted to the hospital with troponin high at 3.34, A1c of 2.3 , creatinine 0.99. He was transferred over here for cardiac catheterization and was found to have triple vessel disease for which he was admitted to ICU at this time. ( ) ARB, statin therapy. Ejection fraction 40%, 70% stenosis right coronary, 100% circumflex, total occlusion LAD. Fourteen point review of systems negative except for as mentioned in HPI. PAST MEDICAL HISTORY: Uncontrolled diabetes mellitus, chronic obstructive pulmonary disease, GERD, hypertension, non-Q wave myocardial infarction, bipolar , ( ), appendectomy, orthopedic surgery, left femur fracture. Former smoker of 20-years, prior alcoholic recovered for 13 years. FAMILY HISTORY: Mother with chronic obstructive pulmonary disease, GERD, hypertension. Father with cancer of the tongue and prostate cancer, chronic obstructive pulmonary disease, coronary artery disease with 5 stents, diabetes mellitus, pneumonia, bipolar. MEDICATIONS: Omeprazole, sertraline, albuterol inhaler. ALLERGIES: NO KNOWN DRUG ALLERGIES. ( ) Temp 98, pulse 80s to 90s, respiratory 16 to 18, blood pressure 120s over 80s. O2 97% on room air. CARDIOVASCULAR: S1, S2. LUNGS: Transmitted upper airway sounds. Scattered wheeze x4. HEMATOLOGIC: Negative Homans. PSYCH: Fair mood and affect. NEUROLOGIC: Alert and oriented x3. OPHTHALMOLOGIC: Pupils equal and reactive to light and accommodation. Labs were reviewed. ASSESSMENT: 1. Non-ST elevation myocardial infarction, triple vessel heart disease. 2. Cardiomyopathy, ischemic. Patient will continue with Lantus or Levemir long acting. Will start 26 units a day and Accu-Chek protocol a.c. and at bedtime. Consultation, ARBs and statins will be continued. MTDD
[2016-10-07] MEDS ORDERED: MD COMMUNICATION TO PHARMACY 1 EACH MISC PO ONE ×2 (15:41)
--- NOTE | 2016-10-07 16:10 | P.PN ---
<Kaz Avila - Last Filed: 10/07/16 16:08> Subjective Principal diagnosis: Coronary artery disease, Non-STEMI, hypertension, dyslipidemia, diabetes mellitus poorly controlled type II with an admission hemoglobin A1c of 10.4, severe COPD, and GERD. This is a 50-year-old gentleman who does not follow with a primary care physician on a regular basis. He has past medical history of diabetes mellitus type 2 uncontrolled, hypertension, COPD, bipolar disorder, kidney stones, pneumonia over 10 years ago, and history of nicotine dependence which he quit 10 years ago. He also has a history of alcohol and drug addiction which he states that he has been in recovery for about 13 years. On 10/04/2016 the patient presented to the emergency department at [facility] with complaints of chest pain and worsening shortness of breath. He reports that he has been having chest pain and shortness of breath for a period of 4-6 weeks prior to presenting to the hospital. His shortness of breath was worse while lying flat. He also reports that he had quite severe edema to his bilateral lower extremities. The patient had a 12-lead EKG completed in the emergency department which showed anterior Q wave and was suggestive of a subacute myocardial infarction without ST elevation and nonspecific STT changes.patient also had lab work completed with a troponin as high as 3.34, hemoglobin A1c of 10.3, BUN of 23, creatinine of 0.99, WBC 14.8, hemoglobin 17.1, platelets were 227, and a BNP of 471. The patient also had a 2-D echocardiogram completed which showed trace aortic regurgitation, mild mitral valve regurgitation, trace tricuspid regurgitation, and a normal left ventricular size with moderate to severe hypokinesis in the apical inferior wall, apical septal wall, and apical lateral wall with an ejection fraction of 40%. The patient was admitted to [facility] for further treatment and evaluation and was started on a Lasix drip, beta caleb, ARB, aspirin and statin therapy. Subsequently he was transferred to [facility] for further cardiac workup and underwent a heart catheterization which demonstrated a 70% stenosis to his right coronary artery, 100% stenosis to his circumflex coronary artery, and a totally occluded left anterior descending coronary artery. Also during heart catheterization he underwent a left ventriculogram which showed him to have an ejection fraction of 35%. Patient is laying in bed in no acute distress. Denies any further complaints of chest pain or shortness of breath. His mother and sister are at his bedside. He is tolerating his incentive spirometry. Objective - Vital Signs Vital signs: Vital Signs Temp 97.6 F 10/07/16 07:39 Pulse 92 10/07/16 07:49 Resp 16 10/07/16 07:39 BP 135/83 10/07/16 07:39 Pulse Ox 95 10/07/16 07:39 Intake & Output 10/06/16 10/07/16 10/07/16 18:59 06:59 18:59 Intake Total 100 900 Output Total 1400 725 Balance 100 -500 -725 Weight 88.4 kg 89.1 kg Intake: IV 100 900 Sodium Chloride 0.9% 1, 900 000 ml @ 75 mls/hr IV . [id number] FADI Rx#:[id number] Output: Urine 1400 725 Other: Voiding Method Toilet Urinal # Voids 1 - Constitutional General appearance: Present: cooperative, no acute distress, obese - EENT Eyes: Present: PERRLA ENT: Present: hearing grossly normal - Neck Details: No JVD present. - Respiratory Details: Essentially clear throughout, diminished to his bilateral bases. Respirations are symmetrical and unlabored. He is achieving 2500 mL on his incentive spirometry. Suction saturations are 98% on room air. Bedside FEV1 has been completed and was 52% of predicte. - Cardiovascular Details: Regular rhythm and rate. Normal S1 and S2, negative for S3, gallop or murmur. No edema present. Remote telemetry showing normal sinus rhythm heart rate 95. Peripheral pulses are palpable. - Gastrointestinal Gastrointestinal Comment(s): Abdomen is soft, nontender and nondistended. Positive bowel sounds all 4 abdominal quadrants. Positive flatus. - Genitourinary Genitourinary Comment(s): Urine output is adequate, clear yellow urine. - Integumentary Integumentary Comment(s): Ecchymotic area to his right forearm, which has improved today. Decreased swelling to his right arm today. - Neurologic Neurologic: Present: CNII-XII intact - Musculoskeletal Musculoskeletal: Present: gait normal, strength equal bilaterally - Psychiatric Psychiatric: Present: A&O x's 3, appropriate affect, intact judgment & insight - Allied health notes Allied health notes reviewed: nursing - Labs CBC & Chem 7: 10/07/16 06:11 08/25/17 06:11 Labs: Abnormal Lab Results - Last 24 Hours (Table) 10/06/16 10/06/16 10/06/16 Range/Units 11:09 13:38 13:38 WBC 11.1 H (3.8-10.6) k/uL Neutrophils # 8.2 H (1.3-7.7) k/uL APTT (22.0-30.0) sec Sodium (137-145) mmol/L BUN 34 H (9-20) mg/dL Glucose 225 H (74-99) mg/dL POC Glucose (mg/dL) 272 H (75-99) mg/dL Hemoglobin A1c (4.2-6.1) % Total Protein 5.5 L (6.3-8.2) g/dL Albumin 3.3 L (3.5-5.0) g/dL Triglycerides (<150) mg/dL Cholesterol (<200) mg/dL LDL Cholesterol, Calc (0-99) mg/dL HDL Cholesterol (40-60) mg/dL Ur Specific [place] (1.001-1.035) Urine Glucose (UA) (Negative) 10/06/16 10/06/16 10/06/16 Range/Units 13:38 13:38 13:38 WBC (3.8-10.6) k/uL Neutrophils # (1.3-7.7) k/uL APTT 21.5 L (22.0-30.0) sec Sodium (137-145) mmol/L BUN (9-20) mg/dL Glucose (74-99) mg/dL POC Glucose (mg/dL) (75-99) mg/dL Hemoglobin A1c 10.4 H (4.2-6.1) % Total Protein (6.3-8.2) g/dL Albumin (3.5-5.0) g/dL Triglycerides 261 H (<150) mg/dL Cholesterol 200 H (<200) mg/dL LDL Cholesterol, Calc 113 H (0-99) mg/dL HDL Cholesterol 35 L (40-60) mg/dL Ur Specific [place] (1.001-1.035) Urine Glucose (UA) (Negative) 10/06/16 10/06/16 10/06/16 Range/Units 15:52 16:42 20:48 WBC (3.8-10.6) k/uL Neutrophils # (1.3-7.7) k/uL APTT (22.0-30.0) sec Sodium (137-145) mmol/L BUN (9-20) mg/dL Glucose (74-99) mg/dL POC Glucose (mg/dL) 256 H 359 H (75-99) mg/dL Hemoglobin A1c (4.2-6.1) % Total Protein (6.3-8.2) g/dL Albumin (3.5-5.0) g/dL Triglycerides (<150) mg/dL Cholesterol (<200) mg/dL LDL Cholesterol, Calc (0-99) mg/dL HDL Cholesterol (40-60) mg/dL Ur Specific [place] 1.039 H (1.001-1.035) Urine Glucose (UA) 3+ H (Negative) 10/07/16 10/07/16 Range/Units 05:46 06:11 WBC (3.8-10.6) k/uL Neutrophils # (1.3-7.7) k/uL APTT (22.0-30.0) sec Sodium 136 L (137-145) mmol/L BUN 34 H (9-20) mg/dL Glucose 208 H (74-99) mg/dL POC Glucose (mg/dL) 201 H (75-99) mg/dL Hemoglobin A1c (4.2-6.1) % Total Protein (6.3-8.2) g/dL Albumin (3.5-5.0) g/dL Triglycerides (<150) mg/dL Cholesterol (<200) mg/dL LDL Cholesterol, Calc (0-99) mg/dL HDL Cholesterol (40-60) mg/dL Ur Specific [place] (1.001-1.035) Urine Glucose (UA) (Negative) Microbiology - Last 24 Hours (Table) 10/06/16 16:41 Nasal Screen MRSA/MSSA ([place]) - Preliminary Nasal Swab 10/06/16 15:52 Urine Culture - Preliminary Urine,Clean Catch - Imaging and Cardiology Chest x-ray: report reviewed, image reviewed Carotid Doppler study report reviewed. Assessment and Plan (1) Non-STEMI (non-ST elevated myocardial infarction) Status: Acute (2) Coronary artery disease Status: Acute (3) Hypertension Status: Acute (4) COPD (chronic obstructive pulmonary disease) Status: Acute (5) Uncontrolled type 2 diabetes mellitus Status: Acute (6) GERD (gastroesophageal reflux disease) Status: Acute (7) Hemoglobin A1C greater than 9%, indicating poor diabetic control Status: Acute (8) CHF NYHA class III (symptoms with mildly strenuous activities) Status: Acute Plan: 1. Preoperative teaching reinforced with the patient. Questions answered. 2. Encourage use of his incentive spirometry every hour while awake. 3. DVT and GI prophylaxis in place. 4. Pulmonary management per Dr. Ramírez's recommendations. 5. Further recommendations as patient progresses in care. 6. He is scheduled for a coronary artery bypass grafting surgery 4 with MARIE, endoscopic vein harvest, possible radial artery harvest, intraoperative transesophageal echocardiogram and epi-aortic scanning for 10/10/[address] Klein. 7. STS risk score discussed with patient by Dr. Klein. Time with Patient: Greater than 30 <Ramesh Klein - Last Filed: 10/12/16 10:45> Objective - Vital Signs Vital signs: Vital Signs Temp 98.1 F 10/10/16 17:00 Pulse 117 H 10/12/16 09:00 Resp 35 H 10/12/16 09:00 BP 129/76 10/12/16 09:00 Pulse Ox 96 10/12/16 09:00 Intake & Output 10/11/16 10/12/16 10/12/16 18:59 06:59 18:59 Intake Total 1297.938 457.263 200 Output Total 1215 1360 360 Balance 82.938 -902.737 -160 Weight 95.4 kg 94.4 kg Intake: IV 799.0 360 100 ACETAMINOPHEN IV (For NPO 100 ) 1,000 mg In Empty Bag 1 bag @ 400 mls/hr IVPB Q6HR FADI Rx#:[id number] CO/CI 103 30 40 Diltiazem 125 mg In 5 Sodium Chloride 0.9% 100 ml @ 5 MG/HR 5 mls/hr IV .Q24H FADI Rx#:[id number] Lactated Ringers 1,000 ml 480 330 60 @ 20 mls/hr IV .Q24H FADI Rx#:[id number] Milrinone-D5w Pmx 20 mg 9.5 In Dextrose/Water 1 100ml .bag @ 0.1 MCG/KG/MIN 2. 61 mls/hr IV .Q24H FADI Rx #:[id number] Nitroglycerin-D5w Pmx 50 1.5 mg In Dextrose/Water 1 250ml.bag @ 5 MCG/MIN 1.5 mls/hr IV .Q24H FADI Rx#: [id number] ceFAZolin 2,000 mg In 100 Sodium Chloride 0.9% 30 ml @ 999 mls/hr IVPB ONCE PRN Rx#:[id number] Intake, IV Titration 498.938 97.263 100 Amount Clevidipine Butyrate 25 28.4 50.533 mg In Empty Bag 1 bag @ 1 MG/HR 2 mls/hr IV .Q24H FADI Rx#:[id number] Diltiazem 125 mg In 63.667 Sodium Chloride 0.9% 100 ml @ 5 MG/HR 5 mls/hr IV .Q24H FADI Rx#:[id number] Insulin Regular 100 unit 40.407 46.730 In Sodium Chloride 0.9% 100 ml @ Per Protocol IV .Q0M FADI Rx#:[id number] Lactated Ringers 1,000 ml 30 @ 20 mls/hr IV .Q24H FADI Rx#:[id number] Milrinone-D5w Pmx 20 mg 118.289 In Dextrose/Water 1 100ml .bag @ 0.1 MCG/KG/MIN 2. 61 mls/hr IV .Q24H FADI Rx #:[id number] Nitroglycerin-D5w Pmx 50 18.175 mg In Dextrose/Water 1 250ml.bag @ 5 MCG/MIN 1.5 mls/hr IV .Q24H PRN Rx#: [id number] Potassium Chloride 10 meq 200 In Water For Injection 1 100ml.bag @ 100 mls/hr IVPB Q1H FADI Rx#: [id number] Potassium Chloride 10 meq 100 In Water For Injection 1 100ml.bag @ 100 mls/hr IVPB Q1H FADI Rx#: [id number] Output: Chest Tube Drainage 290 430 70 Bilateral Mediastinal 210 310 50 Chest Tube Left Lateral 80 120 20 Chest Drainage 60 20 left medial calf 60 20 Urine 865 910 290 Other: Voiding Method Indwelling Catheter Indwelling Catheter # Voids 1 ABP, PAP, CO, CI - Last Documented Arterial Blood Pressure 154/26 Pulmonary Artery Pressure 41/19 Cardiac Output 9.2 Cardiac Index 4.5 - Labs CBC & Chem 7: 10/12/16 04:45 10/12/16 04:45 Labs: Abnormal Lab Results - Last 24 Hours (Table) 10/10/16 10/10/16 10/10/16 Range/Units 08:38 09:48 10:43 WBC (3.8-10.6) k/uL RBC (4.30-5.90) m/uL Hgb (13.0-17.5) gm/dL Hct (39.0-53.0) % Plt Count (150-450) k/uL Neutrophils # (1.3-7.7) k/uL Monocytes # (0-1.0) k/uL INR (<1.2) ABG pH 7.34 L (7.35-7.45) ABG pCO2 46 H (35-45) mmHg ABG pO2 319 H 183 H (83-108) mmHg ABG HCO3 (21-25) mmol/L ABG Total CO2 26 H 26 H (19-24) mmol/L ABG O2 Saturation 99.9 H 97.2 H 99.7 H (94-97) % ABG Hematocrit (34.0-46.0) % ABG Potassium (3.4-4.5) mmol/L Creatinine (0.66-1.25) mg/dL Glucose (74-99) mg/dL POC Glucose (mg/dL) (75-99) mg/dL Total Protein (6.3-8.2) g/dL Albumin (3.5-5.0) g/dL Triglycerides (<150) mg/dL HDL Cholesterol (40-60) mg/dL Arterial Blood Potassium (3.4-4.5) mmol/L 10/10/16 10/10/16 10/11/16 Range/Units 11:12 11:39 11:08 WBC (3.8-10.6) k/uL RBC (4.30-5.90) m/uL Hgb (13.0-17.5) gm/dL Hct (39.0-53.0) % Plt Count (150-450) k/uL Neutrophils # (1.3-7.7) k/uL Monocytes # (0-1.0) k/uL INR (<1.2) ABG pH 7.30 L (7.35-7.45) ABG pCO2 54 H (35-45) mmHg ABG pO2 252 H 187 H (83-108) mmHg ABG HCO3 26 H (21-25) mmol/L ABG Total CO2 28 H 26 H (19-24) mmol/L ABG O2 Saturation 99.8 H 99.6 H (94-97) % ABG Hematocrit 29 L 30 L (34.0-46.0) % ABG Potassium 5.0 H 4.9 H (3.4-4.5) mmol/L Creatinine (0.66-1.25) mg/dL Glucose (74-99) mg/dL POC Glucose (mg/dL) 172 H (75-99) mg/dL Total Protein (6.3-8.2) g/dL Albumin (3.5-5.0) g/dL Triglycerides (<150) mg/dL HDL Cholesterol (40-60) mg/dL Arterial Blood Potassium 5.0 H 4.9 H (3.4-4.5) mmol/L 10/11/16 10/11/16 10/11/16 Range/Units 12:24 13:05 14:05 WBC (3.8-10.6) k/uL RBC (4.30-5.90) m/uL Hgb (13.0-17.5) gm/dL Hct (39.0-53.0) % Plt Count (150-450) k/uL Neutrophils # (1.3-7.7) k/uL Monocytes # (0-1.0) k/uL INR (<1.2) ABG pH (7.35-7.45) ABG pCO2 (35-45) mmHg ABG pO2 (83-108) mmHg ABG HCO3 (21-25) mmol/L ABG Total CO2 (19-24) mmol/L ABG O2 Saturation (94-97) % ABG Hematocrit (34.0-46.0) % ABG Potassium (3.4-4.5) mmol/L Creatinine (0.66-1.25) mg/dL Glucose (74-99) mg/dL POC Glucose (mg/dL) 174 H 171 H 180 H (75-99) mg/dL Total Protein (6.3-8.2) g/dL Albumin (3.5-5.0) g/dL Triglycerides (<150) mg/dL HDL Cholesterol (40-60) mg/dL Arterial Blood Potassium (3.4-4.5) mmol/L 10/11/16 10/11/16 10/11/16 Range/Units 15:05 16:14 17:50 WBC (3.8-10.6) k/uL RBC (4.30-5.90) m/uL Hgb (13.0-17.5) gm/dL Hct (39.0-53.0) % Plt Count (150-450) k/uL Neutrophils # (1.3-7.7) k/uL Monocytes # (0-1.0) k/uL INR (<1.2) ABG pH 7.48 H (7.35-7.45) ABG pCO2 (35-45) mmHg ABG pO2 74 L (83-108) mmHg ABG HCO3 26 H (21-25) mmol/L ABG Total CO2 27 H (19-24) mmol/L ABG O2 Saturation (94-97) % ABG Hematocrit (34.0-46.0) % ABG Potassium (3.4-4.5) mmol/L Creatinine (0.66-1.25) mg/dL Glucose (74-99) mg/dL POC Glucose (mg/dL) 180 H 179 H (75-99) mg/dL Total Protein (6.3-8.2) g/dL Albumin (3.5-5.0) g/dL Triglycerides (<150) mg/dL HDL Cholesterol (40-60) mg/dL Arterial Blood Potassium (3.4-4.5) mmol/L 10/11/16 10/11/16 10/11/16 Range/Units 18:51 20:09 22:03 WBC (3.8-10.6) k/uL RBC (4.30-5.90) m/uL Hgb (13.0-17.5) gm/dL Hct (39.0-53.0) % Plt Count (150-450) k/uL Neutrophils # (1.3-7.7) k/uL Monocytes # (0-1.0) k/uL INR (<1.2) ABG pH (7.35-7.45) ABG pCO2 (35-45) mmHg ABG pO2 (83-108) mmHg ABG HCO3 (21-25) mmol/L ABG Total CO2 (19-24) mmol/L ABG O2 Saturation (94-97) % ABG Hematocrit (34.0-46.0) % ABG Potassium (3.4-4.5) mmol/L Creatinine (0.66-1.25) mg/dL Glucose (74-99) mg/dL POC Glucose (mg/dL) 164 H 167 H 152 H (75-99) mg/dL Total Protein (6.3-8.2) g/dL Albumin (3.5-5.0) g/dL Triglycerides (<150) mg/dL HDL Cholesterol (40-60) mg/dL Arterial Blood Potassium (3.4-4.5) mmol/L 10/12/16 10/12/16 10/12/16 Range/Units 00:27 02:33 04:45 WBC (3.8-10.6) k/uL RBC (4.30-5.90) m/uL Hgb (13.0-17.5) gm/dL Hct (39.0-53.0) % Plt Count (150-450) k/uL Neutrophils # (1.3-7.7) k/uL Monocytes # (0-1.0) k/uL INR (<1.2) ABG pH (7.35-7.45) ABG pCO2 (35-45) mmHg ABG pO2 (83-108) mmHg ABG HCO3 (21-25) mmol/L ABG Total CO2 (19-24) mmol/L ABG O2 Saturation (94-97) % ABG Hematocrit (34.0-46.0) % ABG Potassium (3.4-4.5) mmol/L Creatinine 0.60 L (0.66-1.25) mg/dL Glucose 169 H (74-99) mg/dL POC Glucose (mg/dL) 147 H 169 H (75-99) mg/dL Total Protein 4.6 L (6.3-8.2) g/dL Albumin 2.8 L (3.5-5.0) g/dL Triglycerides (<150) mg/dL HDL Cholesterol (40-60) mg/dL Arterial Blood Potassium (3.4-4.5) mmol/L 10/12/16 10/12/16 10/12/16 Range/Units 04:45 04:45 04:45 WBC 13.0 H (3.8-10.6) k/uL RBC 3.13 L (4.30-5.90) m/uL Hgb 9.5 L (13.0-17.5) gm/dL Hct 27.0 L (39.0-53.0) % Plt Count 112 L (150-450) k/uL Neutrophils # 10.3 H (1.3-7.7) k/uL Monocytes # 1.2 H (0-1.0) k/uL INR 1.2 H (<1.2) ABG pH (7.35-7.45) ABG pCO2 (35-45) mmHg ABG pO2 (83-108) mmHg ABG HCO3 (21-25) mmol/L ABG Total CO2 (19-24) mmol/L ABG O2 Saturation (94-97) % ABG Hematocrit (34.0-46.0) % ABG Potassium (3.4-4.5) mmol/L Creatinine (0.66-1.25) mg/dL Glucose (74-99) mg/dL POC Glucose (mg/dL) 178 H (75-99) mg/dL Total Protein (6.3-8.2) g/dL Albumin (3.5-5.0) g/dL Triglycerides (<150) mg/dL HDL Cholesterol (40-60) mg/dL Arterial Blood Potassium (3.4-4.5) mmol/L 10/12/16 10/12/16 10/12/16 Range/Units 04:45 06:01 08:21 WBC (3.8-10.6) k/uL RBC (4.30-5.90) m/uL Hgb (13.0-17.5) gm/dL Hct (39.0-53.0) % Plt Count (150-450) k/uL Neutrophils # (1.3-7.7) k/uL Monocytes # (0-1.0) k/uL INR (<1.2) ABG pH (7.35-7.45) ABG pCO2 (35-45) mmHg ABG pO2 (83-108) mmHg ABG HCO3 (21-25) mmol/L ABG Total CO2 (19-24) mmol/L ABG O2 Saturation (94-97) % ABG Hematocrit (34.0-46.0) % ABG Potassium (3.4-4.5) mmol/L Creatinine (0.66-1.25) mg/dL Glucose (74-99) mg/dL POC Glucose (mg/dL) 187 H 193 H (75-99) mg/dL Total Protein (6.3-8.2) g/dL Albumin (3.5-5.0) g/dL Triglycerides 163 H (<150) mg/dL HDL Cholesterol 19 L (40-60) mg/dL Arterial Blood Potassium (3.4-4.5) mmol/L 10/12/16 Range/Units 08:58 WBC (3.8-10.6) k/uL RBC (4.30-5.90) m/uL Hgb (13.0-17.5) gm/dL Hct (39.0-53.0) % Plt Count (150-450) k/uL Neutrophils # (1.3-7.7) k/uL Monocytes # (0-1.0) k/uL INR (<1.2) ABG pH (7.35-7.45) ABG pCO2 (35-45) mmHg ABG pO2 (83-108) mmHg ABG HCO3 (21-25) mmol/L ABG Total CO2 (19-24) mmol/L ABG O2 Saturation (94-97) % ABG Hematocrit (34.0-46.0) % ABG Potassium (3.4-4.5) mmol/L Creatinine (0.66-1.25) mg/dL Glucose (74-99) mg/dL POC Glucose (mg/dL) 187 H (75-99) mg/dL Total Protein (6.3-8.2) g/dL Albumin (3.5-5.0) g/dL Triglycerides (<150) mg/dL HDL Cholesterol (40-60) mg/dL Arterial Blood Potassium (3.4-4.5) mmol/L Assessment and Plan Plan: The patient was seen and examined. I agree with the above assessment and plan. He remains hemodynamically stable and chest pain-free today. We will plan on performing his coronary artery bypass surgery on Monday.
[2016-10-07 16:27] LABS: Glucose,Whole Blood 239 mg/dL (75-99)
[2016-10-07 21:17] LABS: Glucose,Whole Blood 302 mg/dL (75-99)
[2016-10-07] MEDS: INSULIN GLARGINE 100 UNIT/ML 10 ML VIAL SQ SCH (22:18)
[2016-10-08 06:20] LABS: Glucose,Whole Blood 239 mg/dL (75-99)
[2016-10-08] MEDS: INSULIN LISPRO (humaLOG) 300 UNIT/3 ML VIAL SQ SCH ×4 (06:34→21:19)
[2016-10-08] MEDS: CARVEDILOL 6.25 MG TAB PO SCH ×2 (06:34→17:24)
[2016-10-08] MEDS: SPIRONOLACTONE 25 MG TAB PO SCH (09:07)
[2016-10-08] MEDS: ASPIRIN 81 MG CHEW PO SCH (09:08)
[2016-10-08] MEDS: FUROSEMIDE 20 MG TAB PO SCH ×2 (09:08→15:06)
[2016-10-08] MEDS: LOSARTAN 50 MG TAB PO SCH (09:08)
[2016-10-08] MEDS: MUPIROCIN 2% OINT 22 GM TUBE NASAL SCH ×2 (09:09→20:42)
[2016-10-08] MEDS: HEPARIN SODIUM,PORCINE 5,000 UNIT/ML 1 ML VIAL SQ SCH ×2 (09:09→20:42)
[2016-10-08] MEDS: ATORVASTATIN 40 MG TAB PO SCH (09:09)
--- NOTE | 2016-10-08 10:09 | P.PN ---
Subjective Principal diagnosis: Coronary artery disease, Non-STEMI, hypertension, dyslipidemia, diabetes mellitus poorly controlled type II with an admission hemoglobin A1c of 10.4, severe COPD, and GERD. This 50-year-old gentleman who is admitted with a non-STEMI, he was transferred from [facility] and underwent a cardiac catheterization. He was found to have a 70% stenosis to his right coronary artery, and a percent stenosis to a circumflex coronary artery, and a totally occluded left anterior descending coronary artery. He also had left ventriculogram which showed him an Ejection fraction of 35%. He is scheduled to have coronary artery bypass grafting surgery on 10/10/2016. Currently is sitting up at his bedside. No acute distress. Denies complaints of chest pain or shortness of breath. He has been ambulating in the hallway. He is tolerating his incentive spirometry and achieving 3000 mL. Objective - Vital Signs Vital signs: Vital Signs Temp 96.7 F L 10/08/16 04:00 Pulse 85 10/08/16 04:00 Resp 18 10/08/16 04:00 BP 136/87 10/08/16 04:00 Pulse Ox 96 10/08/16 04:00 Intake & Output 10/07/16 10/08/16 10/08/16 18:59 06:59 18:59 Intake Total 540 Output Total 1950 450 Balance -1410 -450 Weight 88.2 kg Intake: Oral 540 Output: Urine 1950 450 Other: Voiding Method Toilet Urinal # Voids 1 - Constitutional General appearance: Present: cooperative, no acute distress, obese - EENT Eyes: Present: PERRLA, normal appearance ENT: Present: hearing grossly normal - Neck Details: No JVD present, no lymphadenopathy. - Respiratory Details: Essentially clear throughout, few scattered crackles to his bilateral bases. Respirations are symmetrical and unlabored. He is achieving 3000 L on his incentive spirometry. Oxygen saturations are 96% on room air. - Cardiovascular Details: Regular rhythm and rate. S1 and S2 present, negative for S3, gallop or murmur. No edema present. Remote telemetry showing normal sinus rhythm heart rate 86. Sequential compression devices in place to his bilateral lower extremities. - Gastrointestinal Gastrointestinal Comment(s): Abdomen soft, nontender, nondistended. No guarding. Positive bowel sounds to all 4 abdominal quadrants. - Genitourinary Genitourinary Comment(s): Adequate urine output, clear yellow urine. - Integumentary Integumentary Comment(s): Ecchymotic area to his right forearm, no tenderness mild swelling. Integumentary: Present: normal turgor - Neurologic Neurologic Comment(s): No focal deficits. Neurologic: Present: CNII-XII intact - Musculoskeletal Musculoskeletal: Present: gait normal, strength equal bilaterally - Psychiatric Psychiatric: Present: A&O x's 3, appropriate affect, intact judgment & insight - Allied health notes Allied health notes reviewed: nursing - Labs CBC & Chem 7: 10/07/16 06:11 10/07/16 06:11 Labs: Abnormal Lab Results - Last 24 Hours (Table) 10/07/16 10/07/16 10/07/16 Range/Units 11:46 16:19 21:14 POC Glucose (mg/dL) 343 H 239 H 302 H (75-99) mg/dL 10/08/16 Range/Units 06:12 POC Glucose (mg/dL) 239 H (75-99) mg/dL Microbiology - Last 24 Hours (Table) 10/06/16 15:52 Urine Culture - Final Urine,Clean Catch Assessment and Plan (1) Non-STEMI (non-ST elevated myocardial infarction) Status: Acute (2) Coronary artery disease Status: Acute (3) Hypertension Status: Acute (4) COPD (chronic obstructive pulmonary disease) Status: Acute (5) Uncontrolled type 2 diabetes mellitus Status: Acute (6) GERD (gastroesophageal reflux disease) Status: Acute (7) Hemoglobin A1C greater than 9%, indicating poor diabetic control Status: Acute (8) CHF NYHA class III (symptoms with mildly strenuous activities) Status: Acute Plan: 1. Preoperative teaching reinforced with the patient. Questions answered. Preoperative open heart binder at the patient's bedside. 2. Encourage use of his incentive spirometry every hour while awake. 3. DVT and GI prophylaxis in place. 4. Pulmonary management per Dr. Ramírez's recommendations. 5. Further recommendations as patient progresses in care. 6. He is scheduled for a coronary artery bypass grafting surgery 4 with MARIE, endoscopic vein harvest, possible radial artery harvest, intraoperative transesophageal echocardiogram and epi-aortic scanning for 10/10/[address] Klein. 7. STS 5 m walk test completed with the patient by cardiac rehab yesterday time 1: 5.44 seconds, time 2: 4.59 seconds, time 3: 4.88 seconds. 8. Medical management and diabetes management per Dr. Magana's recommendations. Time with Patient: Greater than 30
[2016-10-08] MEDS: INSULIN GLARGINE 100 UNIT/ML 10 ML VIAL SQ SCH ×2 (10:38→21:18)
--- NOTE | 2016-10-08 11:24 | P.PN ---
Subjective Principal diagnosis: CHF This is a pleasant 50-year-old gentleman with a history of type 2 diabetes and bronchial asthma. Presented to [facility] with congestive heart failure and subacute PR for at least one week duration with troponins that showed already downward trend. He was subsequently transferred here to [facility] and underwent cardiac catheterization that showed severe triple vessel disease with total occlusion of the mid LAD and proximal circumflex, significant lesion in the RCA. Ejection fraction 35-40%. CV surgeons have been consulted and surgery is scheduled for Monday. Objective - Vital Signs Vital signs: Vital Signs Temp 98.1 F 10/08/16 08:00 Pulse 84 10/08/16 08:00 Resp 16 10/08/16 08:00 BP 130/86 10/08/16 08:00 Pulse Ox 95 10/08/16 08:00 Intake & Output 10/07/16 10/08/16 10/08/16 18:59 06:59 18:59 Intake Total 540 Output Total 1950 450 Balance -1410 -450 Weight 88.2 kg Intake: Oral 540 Output: Urine 1950 450 Other: Voiding Method Toilet Urinal # Voids 1 - Exam PHYSICAL EXAMINATION: HEENT: Head is atraumatic, normocephalic. Pupils equal, round. Neck is supple. There is no elevated jugular venous pressure. HEART EXAMINATION: Heart sounds regular, S1 and S2 normal. No murmur or gallop heard. CHEST EXAMINATION: Lungs are clear to auscultation and precussion. No chest wall tenderness is noted on palpation or with deep breathing. ABDOMEN: Soft, nontender. Bowel sounds are heard. No organomegaly noted. EXTREMITIES: 2+ peripheral pulses with no evidence of peripheral edema and no calf tenderness noted. Improving ecchymosis noted to right forearm. NEUROLOGIC patient is awake, alert and oriented x3. . - Labs CBC & Chem 7: 10/07/16 06:11 10/07/16 06:11 Labs: Abnormal Lab Results - Last 24 Hours (Table) 10/07/16 10/07/16 10/07/16 Range/Units 11:46 16:19 21:14 POC Glucose (mg/dL) 343 H 239 H 302 H (75-99) mg/dL 10/08/16 Range/Units 06:12 POC Glucose (mg/dL) 239 H (75-99) mg/dL Microbiology - Last 24 Hours (Table) 10/06/16 15:52 Urine Culture - Final Urine,Clean Catch Assessment and Plan Plan: Assessment and plan #1 non-ST elevation PR #2 ischemic cardiomyopathy #3 acute systolic congestive heart failure #4 severe triple-vessel CAD #5 diabetes #6 hypertension #7 dyslipidemia From cardiology perspective, medications were reviewed and we'll continue the same. We'll continue to follow the patient perioperatively and provide further recommendations accordingly. 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 Patient was seen and examined.
[2016-10-08 12:36] LABS: Glucose,Whole Blood 265 mg/dL (75-99)
--- NOTE | 2016-10-08 12:36 | P.PN ---
Subjective Principal diagnosis: Patient seen and evaluated examined during the rounds he is breathing comfortably cough congestion shortness of breath is there but stable and improved he is being evaluated by cardiothoracic surgery for bypass surgery, from respiratory standpoint doing relatively better. Patient has been evaluated by cardiothoracic surgery and cardiology their recommendations reviewed Mr. Matt Guerrero is a 50-year-old male who seen and evaluated examined on 66 floor selective care after his cardiac cath and angiogram which was found to have a diffuse coronary artery disease patient is being considered for possibly CABG 4 by cardiothoracic surgery. This patient has not been doing well for almost 4 weeks with increased shortness breath cough. Sputum production lately has been associated with streaks of blood lately he's been more short of breath started having intermittent chest pain about a week prior to coming hospital started to have left shortness of breath patient admitted into the [facility] with uncontrolled hyperglycemia hemoptysis and very high elevated troponin up to 3 patient had hypertensive urgency and emergency as well however responded well with IV steroids insulin drip and nitro heparin and breathing treatments his hemoptysis is resolved his shortness of breath cough and wheezing improved and his blood pressure improved as well at that point decision was done to transfer the patient into the [facility] for cardiac cath and angiogram. Patient of note that has been a noncompliant has not been taking care of himself the problems associated with the hemoptysis cough shortness of breath and wheezing and diabetes has been relish continued to him he has not seen any doctor physician for many many years As dictated above Patient respiratory status is much better and improve still a mild degree of shortness of breath, but wheezing has improved he has no more episodes of hemoptysis., Patient is being scheduled for bypass surgery early next week, would recommend to DC the steroids monitor patient off of his steroids anticipated that with discontinuation of Solu-Medrol the hyperglycemia will be better under control Objective - Vital Signs Vital signs: Vital Signs Temp 97.6 F 10/08/16 11:59 Pulse 89 10/08/16 11:59 Resp 16 10/08/16 11:59 BP 165/102 10/08/16 11:59 Pulse Ox 97 10/08/16 11:59 Intake & Output 10/07/16 10/08/16 10/08/16 18:59 06:59 18:59 Intake Total 540 Output Total 1950 450 Balance -1410 -450 Weight 88.2 kg 88.2 kg Intake: Oral 540 Output: Urine 1950 450 Other: Voiding Method Toilet Urinal # Voids 1 - Exam - Constitutional General appearance: average body habitus, cooperative, disheveled, mild distress - EENT Eyes: EOMI, PERRLA, normal appearance ENT: hearing grossly normal, normal oropharynx Ears: bilateral: normal - Neck Neck: lymphadenopathy, normal ROM Carotids: bilateral: upstroke normal, bruit absent Thyroid: bilateral: normal size - Respiratory Respiratory: bilateral: wheezing (Fine wheezing on forced expiration), prolonged expiration - Cardiovascular Rhythm: regular Heart sounds: normal: S1, S2 - Gastrointestinal General gastrointestinal: distended, normal bowel sounds, soft - Integumentary Integumentary: calor, normal - Neurologic Neurologic: CNII-XII intact - Musculoskeletal Musculoskeletal: gait normal, strength equal bilaterally - Psychiatric Psychiatric: A&O x's 3, appropriate affect, intact judgment & insig - Labs CBC & Chem 7: 10/07/16 06:11 10/07/16 06:11 Labs: Abnormal Lab Results - Last 24 Hours (Table) 10/07/16 10/07/16 10/08/16 Range/Units 16:19 21:14 06:12 POC Glucose (mg/dL) 239 H 302 H 239 H (75-99) mg/dL Microbiology - Last 24 Hours (Table) 10/06/16 15:52 Urine Culture - Final Urine,Clean Catch Assessment and Plan Plan: Acute [place] and diffuse coronary artery disease Hypertension hypertensive cardiovascular disease Dyslipidemia Diabetes mellitus poorly controlled type II with complications and sequelae Severe COPD and emphysema Hemoptysis likely related to bronchial inflammation better under control no active process noted now Plan is to continue breathing treatments will hold on the steroids continue deep breathing exercises incentive spirometry would recommend proceeding with the surgery given diffuse coronary artery disease will follow clinical course closely during pre-, Tiffanie and Postoperative phase, care plan discussed with the surgical service patient is anticipated to have bypass surgery early next week Will monitor on observation off of steroids Time with Patient: Greater than 30
[2016-10-08 17:13] LABS: Glucose,Whole Blood 247 mg/dL (75-99)
[2016-10-08 21:17] LABS: Glucose,Whole Blood 272 mg/dL (75-99)
[2016-10-09 06:16] LABS: Glucose,Whole Blood 268 mg/dL (75-99)
[2016-10-09 06:32] LABS: Anion Gap 10 mmol/L; Blood Urea Nitrogen 33 mg/dL (9-20); Calcium 9.8 mg/dL (8.4-10.2); Carbon Dioxide 31 mmol/L (22-30); Chloride 96 mmol/L (98-107); Glucose 261 mg/dL (74-99); Non-African American GFR(MDRD) >60 (>60 ml/min/1.73 sqM); Sodium 137 mmol/L (137-145)
[2016-10-09 06:51] LABS: Basophils % (A) 1 %; CHCM 36.3; Eosinophils # (A) 0.2 k/uL (0-0.7); Eosinophils % (A) 3 %; HCT 46.8 % (39.0-53.0); HDW 3.01; HGB 16.6 gm/dL (13.0-17.5); Luc # (Auto) 0.26; Luc % (Auto) 4; Lymphocytes # (A) 1.6 k/uL (1.0-4.8); Lymphocytes % (A) 25 %; MCH 29.4 pg (25.0-35.0); MCHC 35.4 g/dL (31.0-37.0); MCV 82.9 fL (80.0-100.0); Monocytes # (A) 0.4 k/uL (0-1.0); Monocytes % (A) 6 %; Neutrophils % (A) 61 %; RBC 5.64 m/uL (4.30-5.90); RDW 12.9 % (11.5-15.5); WBC 6.5 k/uL (3.8-10.6); WBC (Perox) 6.51
[2016-10-09] MEDS: INSULIN LISPRO (humaLOG) 300 UNIT/3 ML VIAL SQ SCH ×7 (06:54→20:34)
[2016-10-09] MEDS: CARVEDILOL 6.25 MG TAB PO SCH ×2 (06:54→16:44)
[2016-10-09] MEDS: MUPIROCIN 2% OINT 22 GM TUBE NASAL SCH ×2 (07:57→20:32)
[2016-10-09] MEDS: LOSARTAN 50 MG TAB PO SCH (07:59)
[2016-10-09] MEDS: HEPARIN SODIUM,PORCINE 5,000 UNIT/ML 1 ML VIAL SQ SCH ×2 (07:59→20:33)
[2016-10-09] MEDS: FUROSEMIDE 20 MG TAB PO SCH ×2 (07:59→16:44)
[2016-10-09] MEDS: ATORVASTATIN 40 MG TAB PO SCH (07:59)
[2016-10-09] MEDS: ASPIRIN 81 MG CHEW PO SCH (07:59)
[2016-10-09] MEDS: INSULIN GLARGINE 100 UNIT/ML 10 ML VIAL SQ SCH ×2 (07:59→20:34)
[2016-10-09] MEDS: SPIRONOLACTONE 25 MG TAB PO SCH (08:00)
--- NOTE | 2016-10-09 09:50 | P.PN ---
Subjective Principal diagnosis: Coronary artery disease, Non-STEMI, hypertension, dyslipidemia, diabetes mellitus poorly controlled type II with an admission hemoglobin A1c of 10.4, severe COPD, and GERD. This 50-year-old gentleman who is admitted with a non-STEMI, he was transferred from [facility] and underwent a cardiac catheterization. He was found to have a 70% stenosis to his right coronary artery, and a percent stenosis to a circumflex coronary artery, and a totally occluded left anterior descending coronary artery. He also had left ventriculogram which showed him an Ejection fraction of 35%. He is scheduled to have coronary artery bypass grafting surgery on 10/10/2016. Currently is sitting up at his bedside. No acute distress. Denies complaints of chest pain or shortness of breath. He has been ambulating in the hallway. He is tolerating his incentive spirometry and achieving 3250 mL. Preoperative teaching reinforcement with the patient. All questions answered. Objective - Vital Signs Vital signs: Vital Signs Temp 98.0 F 10/09/16 04:00 Pulse 82 10/09/16 04:00 Resp 18 10/09/16 04:00 BP 140/93 10/09/16 04:00 Pulse Ox 97 10/09/16 04:00 Intake & Output 10/08/16 10/09/16 10/09/16 18:59 06:59 18:59 Output Total 1000 Balance -1000 Weight 88.2 kg 86.9 kg Output: Urine 1000 Other: Voiding Method Toilet Urinal # Voids 2 1 - Constitutional General appearance: Present: cooperative, no acute distress, obese - EENT Eyes: Present: PERRLA, normal appearance ENT: Present: hearing grossly normal - Neck Details: No JVD, no lymphadenopathy. Neck: Present: normal ROM - Respiratory Details: Lung sounds are essentially clear to his upper lobes, few scattered crackles to his bilateral bases. Respirations are symmetrical and nonlabored. Oxygen saturations are 97% on room air. He is achieving 3250 mL on his incentive spirometry. - Cardiovascular Details: Regular rhythm and rate. S1 and S2 present, negative for S3, gallop or murmur. No edema present. Remote telemetry showing normal sinus rhythm heart rate 77. Sequential compression devices in place to bilateral lower extremities. - Gastrointestinal Gastrointestinal Comment(s): Abdomen soft, nontender and nondistended. Active bowel sounds to all 4 abdominal quadrants. No guarding or organomegaly. - Genitourinary Genitourinary Comment(s): Adequate urine output. Clear yellow urine. - Integumentary Integumentary Comment(s): Ecchymotic area to his right forearm, no swelling. Integumentary: Present: normal turgor - Neurologic Neurologic Comment(s): No focal deficits. Neurologic: Present: CNII-XII intact - Musculoskeletal Musculoskeletal: Present: gait normal, strength equal bilaterally - Psychiatric Psychiatric: Present: A&O x's 3, appropriate affect, intact judgment & insight - Allied health notes Allied health notes reviewed: nursing - Labs CBC & Chem 7: 10/09/16 05:44 10/09/16 05:44 Labs: Abnormal Lab Results - Last 24 Hours (Table) 10/07/16 10/08/16 10/08/16 Range/Units 16:42 12:17 16:53 Chloride (98-107) mmol/L Carbon Dioxide (22-30) mmol/L BUN (9-20) mg/dL Glucose (74-99) mg/dL POC Glucose (mg/dL) 265 H 247 H (75-99) mg/dL Crossmatch See Detail 10/08/16 10/09/16 10/09/16 Range/Units 21:15 05:44 05:44 Chloride 96 L (98-107) mmol/L Carbon Dioxide 31 H (22-30) mmol/L BUN 33 H (9-20) mg/dL Glucose 261 H (74-99) mg/dL POC Glucose (mg/dL) 272 H (75-99) mg/dL Crossmatch See Detail 10/09/16 Range/Units 06:14 Chloride (98-107) mmol/L Carbon Dioxide (22-30) mmol/L BUN (9-20) mg/dL Glucose (74-99) mg/dL POC Glucose (mg/dL) 268 H (75-99) mg/dL Crossmatch Microbiology - Last 24 Hours (Table) 10/06/16 16:41 Nasal Screen MRSA/MSSA ([place]) - Final Nasal Swab Assessment and Plan (1) Non-STEMI (non-ST elevated myocardial infarction) Status: Acute (2) Coronary artery disease Status: Acute (3) Hypertension Status: Acute (4) COPD (chronic obstructive pulmonary disease) Status: Acute (5) Uncontrolled type 2 diabetes mellitus Status: Acute (6) GERD (gastroesophageal reflux disease) Status: Acute (7) Hemoglobin A1C greater than 9%, indicating poor diabetic control Status: Acute (8) CHF NYHA class III (symptoms with mildly strenuous activities) Status: Acute Plan: 1. Preoperative teaching reinforced with the patient. Questions answered. Preoperative open heart binder at the patient's bedside. 2. Encourage use of his incentive spirometry every hour while awake. 3. DVT and GI prophylaxis in place. 4. Pulmonary management per Dr. Ramírez's recommendations. 5. Further recommendations as patient progresses in care. 6. He is scheduled for a coronary artery bypass grafting surgery 4 with MARIE, endoscopic vein harvest, possible radial artery harvest, intraoperative transesophageal echocardiogram and epi-aortic scanning for 10/10/[address] Klein. 7. STS 5 m walk test completed with the patient by cardiac rehab yesterday time 1: 5.44 seconds, time 2: 4.59 seconds, time 3: 4.88 seconds. 8. Medical management and diabetes management per Dr. Magana's recommendations. 9. Case management was consulted and discussing discharge questions. Time with Patient: Greater than 30
--- NOTE | 2016-10-09 11:36 | P.PN ---
Subjective Patient is doing well. He has no chest discomfort no dizziness lightheadedness. He is sitting comfortably in a chair. He has been ambulating in the hallways. He is afebrile 86.9F, pulse rate in the 80s, normal respirations, blood pressure 142/88 mmHg pulse ox normal Breath sounds are normal no rhonchi no crackles normal breath sounds Heart sounds S1 and S2 are soft no murmurs or gallops Abdomen soft nontender Extremities are warm no edema Impression Multivessel coronary artery disease awaiting coronary artery bypass grafting tomorrow Plan Continue cardiac medications perioperatively and follow CT surgery plan for coronary artery bypass grafting tomorrow Objective - Vital Signs Vital signs: Vital Signs Temp 96.9 F L 10/09/16 08:00 Pulse 82 10/09/16 04:00 Resp 16 10/09/16 08:00 BP 142/88 10/09/16 08:00 Pulse Ox 97 10/09/16 08:00 Intake & Output 10/08/16 10/09/16 10/09/16 18:59 06:59 18:59 Output Total 1000 Balance -1000 Weight 88.2 kg 86.9 kg Output: Urine 1000 Other: Voiding Method Toilet Urinal # Voids 2 1 - Labs CBC & Chem 7: 10/09/16 05:44 10/09/16 05:44 Labs: Abnormal Lab Results - Last 24 Hours (Table) 10/07/16 10/08/16 10/08/16 Range/Units 16:42 12:17 16:53 Chloride (98-107) mmol/L Carbon Dioxide (22-30) mmol/L BUN (9-20) mg/dL Glucose (74-99) mg/dL POC Glucose (mg/dL) 265 H 247 H (75-99) mg/dL Crossmatch See Detail 10/08/16 10/09/16 10/09/16 Range/Units 21:15 05:44 05:44 Chloride 96 L (98-107) mmol/L Carbon Dioxide 31 H (22-30) mmol/L BUN 33 H (9-20) mg/dL Glucose 261 H (74-99) mg/dL POC Glucose (mg/dL) 272 H (75-99) mg/dL Crossmatch See Detail 10/09/16 Range/Units 06:14 Chloride (98-107) mmol/L Carbon Dioxide (22-30) mmol/L BUN (9-20) mg/dL Glucose (74-99) mg/dL POC Glucose (mg/dL) 268 H (75-99) mg/dL Crossmatch Microbiology - Last 24 Hours (Table) 10/06/16 16:41 Nasal Screen MRSA/MSSA ([place]) - Final Nasal Swab
[2016-10-09 11:45] LABS: Glucose,Whole Blood 274 mg/dL (75-99)
--- NOTE | 2016-10-09 12:34 | P.PN ---
Subjective Principal diagnosis: Patient seen and evaluated examined during the rounds he is breathing comfortably cough congestion shortness of breath is there but stable and improved he is being evaluated by cardiothoracic surgery for bypass surgery, from respiratory standpoint doing relatively better. Patient has been evaluated by cardiothoracic surgery and cardiology their recommendations reviewed Mr. Matt Guerrero is a 50-year-old male who seen and evaluated examined on 66 floor selective care after his cardiac cath and angiogram which was found to have a diffuse coronary artery disease patient is being considered for possibly CABG 4 by cardiothoracic surgery. This patient has not been doing well for almost 4 weeks with increased shortness breath cough. Sputum production lately has been associated with streaks of blood lately he's been more short of breath started having intermittent chest pain about a week prior to coming hospital started to have left shortness of breath patient admitted into the [facility] with uncontrolled hyperglycemia hemoptysis and very high elevated troponin up to 3 patient had hypertensive urgency and emergency as well however responded well with IV steroids insulin drip and nitro heparin and breathing treatments his hemoptysis is resolved his shortness of breath cough and wheezing improved and his blood pressure improved as well at that point decision was done to transfer the patient into the [facility] for cardiac cath and angiogram. Patient of note that has been a noncompliant has not been taking care of himself the problems associated with the hemoptysis cough shortness of breath and wheezing and diabetes has been relish continued to him he has not seen any doctor physician for many many years As dictated above Patient respiratory status is much better and improve still a mild degree of shortness of breath, but wheezing has improved he has no more episodes of hemoptysis., Patient is being scheduled for bypass surgery early next week, would recommend to DC the steroids monitor patient off of his steroids anticipated that with discontinuation of Solu-Medrol the hyperglycemia will be better under control Patient seen and evaluated examined on the stepdown unit, patient is being prepared for bypass surgery tomorrow he is undergoing deep breathing exercises incentive spirometry continue to use breathing treatments as needed Objective - Vital Signs Vital signs: Vital Signs Temp 96.9 F L 10/09/16 08:00 Pulse 82 10/09/16 04:00 Resp 16 10/09/16 08:00 BP 142/88 10/09/16 08:00 Pulse Ox 97 10/09/16 08:00 Intake & Output 10/08/16 10/09/16 10/09/16 18:59 06:59 18:59 Output Total 1000 Balance -1000 Weight 88.2 kg 86.9 kg Output: Urine 1000 Other: Voiding Method Toilet Urinal # Voids 2 1 - Exam - Constitutional General appearance: average body habitus, cooperative, disheveled, mild distress - EENT Eyes: EOMI, PERRLA, normal appearance ENT: hearing grossly normal, normal oropharynx Ears: bilateral: normal - Neck Neck: lymphadenopathy, normal ROM Carotids: bilateral: upstroke normal, bruit absent Thyroid: bilateral: normal size - Respiratory Respiratory: bilateral: wheezing (Fine wheezing on forced expiration), prolonged expiration - Cardiovascular Rhythm: regular Heart sounds: normal: S1, S2 - Gastrointestinal General gastrointestinal: distended, normal bowel sounds, soft - Integumentary Integumentary: calor, normal - Neurologic Neurologic: CNII-XII intact - Musculoskeletal Musculoskeletal: gait normal, strength equal bilaterally - Psychiatric Psychiatric: A&O x's 3, appropriate affect, intact judgment & insig - Labs CBC & Chem 7: 10/09/16 05:44 10/09/16 05:44 Labs: Abnormal Lab Results - Last 24 Hours (Table) 10/07/16 10/08/16 10/08/16 Range/Units 16:42 12:17 16:53 Chloride (98-107) mmol/L Carbon Dioxide (22-30) mmol/L BUN (9-20) mg/dL Glucose (74-99) mg/dL POC Glucose (mg/dL) 265 H 247 H (75-99) mg/dL Crossmatch See Detail 10/08/16 10/09/16 10/09/16 Range/Units 21:15 05:44 05:44 Chloride 96 L (98-107) mmol/L Carbon Dioxide 31 H (22-30) mmol/L BUN 33 H (9-20) mg/dL Glucose 261 H (74-99) mg/dL POC Glucose (mg/dL) 272 H (75-99) mg/dL Crossmatch See Detail 10/09/16 10/09/16 Range/Units 06:14 11:40 Chloride (98-107) mmol/L Carbon Dioxide (22-30) mmol/L BUN (9-20) mg/dL Glucose (74-99) mg/dL POC Glucose (mg/dL) 268 H 274 H (75-99) mg/dL Crossmatch Microbiology - Last 24 Hours (Table) 10/06/16 16:41 Nasal Screen MRSA/MSSA ([place]) - Final Nasal Swab Assessment and Plan Plan: Acute [place] and diffuse coronary artery disease Hypertension hypertensive cardiovascular disease Dyslipidemia Diabetes mellitus poorly controlled type II with complications and sequelae Severe COPD and emphysema Hemoptysis likely related to bronchial inflammation better under control no active process noted now Plan is to continue breathing treatments will hold on the steroids continue deep breathing exercises incentive spirometry would recommend proceeding with the surgery given diffuse coronary artery disease will follow clinical course closely during pre-, Tiffanie and Postoperative phase, care plan discussed with the surgical service patient is anticipated to have bypass surgery early next week Will monitor on observation off of steroids Time with Patient: Greater than 30
--- NOTE | 2016-10-09 13:51 | PN ---
SUBJECTIVE: This is a 50 -year-old white male who was admitted with diabetic, with acute STEMI, following cardiac catheterization, triple vessel disease, scheduled for bypass surgery on Monday. Sugars are a little elevated. Discussed with cardiac surgeons, nurse practitioner about how to lower down his sugars. He is currently on sliding scale. Split up his long acting insulin. His labs are mid 200s to low 300s. We will increase his insulin to 5 units plus sliding scale for his fast acting insulin as he continues to have high blood sugars. Cardiovascular: S1, S2. Lungs transmitted upper airway sounds. Hematology: Negative Homans. Psych: Fair mood and affect. Neurological: Alert and oriented times three. ASSESSMENT: 1. Severe coronary artery disease, preop CABG surgery. 2. Insulin dependent diabetes mellitus. 3. Ischemic cardiomyopathy. PLAN: Continue current treatments. Increase fast acting insulin. MTDD
--- NOTE | 2016-10-09 14:43 | PN ---
SUBJECTIVE: 50-year-old white male admitted ischemic cardiomyopathy with triple vessel disease, getting a bypass surgery tomorrow. Temperature is 97, pulse is 70s-80s, respiratory rate 16-18, blood pressure 140s /80s-90s. Glucose had been running mid 200's. We increased his insulin 5 units plus scale. From scale alone plus his long acting insulin, this remains at 18 units b.i.d. Sugars are still maintaining in the 200s although since the scale has been increased by 5 plus the scale, there are no further sugar levels in the computer here. ASSESSMENT: 1. Insulin-dependent diabetes mellitus. 2. Triple vessel heart disease. 3. Ischemic cardiomyopathy. 4. Noncompliance with diabetes as an outpatient. PLAN: Current medications, may increase his long acting insulin and possible discharge to cardiac surgeon after he has the cardiac bypass with a consult after surgery. SUKHDEEP
[2016-10-09 17:23] LABS: Glucose,Whole Blood 242 mg/dL (75-99)
[2016-10-09 20:31] LABS: Glucose,Whole Blood 392 mg/dL (75-99)
[2016-10-10] MEDS: ATORVASTATIN 40 MG TAB PO SCH (04:59)
[2016-10-10] MEDS ORDERED: PAPAVERINE 360 MG in SODIUM CHLORIDE 0.9% 90 ML IV PRN (05:00)
[2016-10-10] MEDS ORDERED: PHENYLEPHRINE 40 MG in SODIUM CHLORIDE 0.9% 250 ML IV PRN (05:00)
[2016-10-10] MEDS ORDERED: NITROGLYCERIN-D5W PMX 25 MG/250 ML BTL IV PRN (05:00)
[2016-10-10] MEDS ORDERED: ceFAZolin 2 GM in SODIUM CHLORIDE 0.9% 30 ML IVPB PRN (05:00)
[2016-10-10] MEDS ORDERED: MANNITOL 25% 12.5 GM/50 ML VIAL IV PRN ×2 (05:00)
[2016-10-10] MEDS ORDERED: AMINOCAPROIC ACID 5,000 MG in DEXTROSE 5% IN WATER 50 ML IV PRN ×4 (05:00)
[2016-10-10] MEDS ORDERED: AMINOCAPROIC ACID 250 MG/ML 20 ML VIAL IV PRN (05:00)
[2016-10-10] MEDS ORDERED: MAGNESIUM SULFATE SYG 4.06 MEQ/ML SYRINGE IV PRN (05:00)
[2016-10-10] MEDS ORDERED: ALBUMIN HUMAN 5% 500 ML in EMPTY BAG 1 BAG IVPB PRN ×6 (05:00)
[2016-10-10] MEDS ORDERED: ceFAZolin 1,000 MG in SODIUM CHLORIDE 0.9% IRRIGATIO 1,000 ML IRRIGATION PRN (05:00)
[2016-10-10] MEDS ORDERED: CLEVIDIPINE BUTYRATE 25 MG in EMPTY BAG 1 BAG IV PRN (05:00)
[2016-10-10] MEDS ORDERED: METOPROLOL TARTRATE 12.5 MG TAB PO ONE (05:00)
[2016-10-10] MEDS ORDERED: DEXTROSE 5% IN WATER 1,000 ML with POTASSIUM CHLORIDE 110 MEQ, MAGNESIUM SULFATE 16 MEQ... IV PRN ×5 (05:00)
[2016-10-10] MEDS ORDERED: ASPIRIN 325 MG TAB PO ONE (05:00)
[2016-10-10] MEDS ORDERED: PROTAMINE SULFATE 250 MG in EMPTY BAG 1 BAG IV PRN (05:00)
[2016-10-10] MEDS ORDERED: PROPOFOL 1,000 MG/100 ML VIAL IV PRN (05:00)
[2016-10-10] MEDS ORDERED: ALBUMIN HUMAN 25% 50 ML in EMPTY BAG 1 BAG IVPB PRN (05:00)
[2016-10-10] MEDS ORDERED: PROTAMINE SULFATE 10 MG/ML 25 ML VIAL IV PRN (05:00)
[2016-10-10] MEDS ORDERED: ceFAZolin 2,000 MG in SODIUM CHLORIDE 0.9% 30 ML IVPB PRN (05:00)
[2016-10-10] MEDS ORDERED: INSULIN REGULAR 100 UNIT in SODIUM CHLORIDE 0.9% 100 ML IV PRN (05:00)
[2016-10-10] MEDS ORDERED: CHLORHEXIDINE GLUCONATE 15 ML CUP MUCOUS MEM PRN (05:00)
[2016-10-10] MEDS ORDERED: SODIUM BICARB 8.4% 50 ML SYR (1 MEQ/ML) IV PRN (05:00)
[2016-10-10] MEDS ORDERED: CALCIUM CHLORIDE 100 MG/ML 10 ML SYRINGE IVP PRN (05:00)
[2016-10-10] MEDS ORDERED: PHENYLEPHRINE-0.9% NACL SYG 1 MG/10 ML SYRINGE IV PRN ×4 (05:00)
[2016-10-10] MEDS ORDERED: NOREPINEPHRIN 4 MG-0.9% NS PMX 4 MG/250 ML ML IV PRN (05:00)
[2016-10-10] MEDS ORDERED: HEPARIN SODIUM 1,000 UN/ML (10ML VL) IV PRN (05:00)
[2016-10-10] MEDS ORDERED: DILTIAZEM 125 MG in SODIUM CHLORIDE 0.9% 100 ML IV PRN (05:00)
[2016-10-10] MEDS ORDERED: NITROGLYCERIN-D5W PMX 50 MG in DEXTROSE/WATER 1 250ML.BAG IV PRN (05:00)
[2016-10-10] MEDS ORDERED: HEPARIN SODIUM,PORCINE 5,000 UNIT in SODIUM CHLORIDE 0.9% 500 ML IV PRN (05:00)
[2016-10-10 05:26] LABS: Glucose,Whole Blood 258 mg/dL (75-99)
[2016-10-10 05:43] LABS: Basophils # (A) 0.1 k/uL (0-0.2); Basophils % (A) 1 %; CH 31.1; CHCM 36.6; Eosinophils # (A) 0.2 k/uL (0-0.7); Eosinophils % (A) 2 %; HCT 44.8 % (39.0-53.0); HDW 2.94; HGB 15.5 gm/dL (13.0-17.5); Luc # (Auto) 0.26; Luc % (Auto) 4; Lymphocytes # (A) 1.5 k/uL (1.0-4.8); Lymphocytes % (A) 21 %; MCH 29.5 pg (25.0-35.0); MCHC 34.6 g/dL (31.0-37.0); MCV 85.2 fL (80.0-100.0); Mean Platelet Volume 7.5; Monocytes # (A) 0.6 k/uL (0-1.0); Monocytes % (A) 8 %; Neutrophils # (A) 4.6 k/uL (1.3-7.7); Neutrophils % (A) 64 %; RBC 5.25 m/uL (4.30-5.90); RDW 14.1 % (11.5-15.5); WBC 7.1 k/uL (3.8-10.6); WBC (Perox) 6.96
[2016-10-10] MEDS: INSULIN LISPRO (humaLOG) 300 UNIT/3 ML VIAL SQ SCH ×2 (05:46)
[2016-10-10 06:56] LABS: Glucose,Whole Blood 243 mg/dL (75-99)
[2016-10-10 07:01] LABS: ALT 46 U/L (21-72); AST 26 U/L (17-59); Alkaline Phosphatase 57 U/L (38-126); Anion Gap 10 mmol/L; Blood Urea Nitrogen 36 mg/dL (9-20); Calcium 9.9 mg/dL (8.4-10.2); Carbon Dioxide 26 mmol/L (22-30); Chloride 101 mmol/L (98-107); Glucose 250 mg/dL (74-99); Non-African American GFR(MDRD) >60 (>60 ml/min/1.73 sqM); Potassium 3.6 mmol/L (3.5-5.1); Sodium 137 mmol/L (137-145); Total Bilirubin 0.6 mg/dL (0.2-1.3); Total Protein 5.8 g/dL (6.3-8.2)
[2016-10-10] MEDS ORDERED: PROTAMINE SULFATE 10 MG/ML 25 ML VIAL IV ONE (08:01)
[2016-10-10] MEDS ORDERED: PHENYLEPHRINE-0.9% NACL SYG 1 MG/10 ML SYRINGE ONE (08:01)
[2016-10-10] MEDS ORDERED: MIDAZOLAM 2 MG/2 ML VIAL ONE (08:01)
[2016-10-10] MEDS ORDERED: ELECTROLYTE-R (PH 7.4) 1,000 ML IV.SOLN IV ONE (08:01)
[2016-10-10] MEDS ORDERED: PROPOFOL 10 MG/ML 20 ML VIAL IV ONE (08:01)
[2016-10-10] MEDS ORDERED: HEPARIN SODIUM,PORCINE 10,000 UNIT/ML 1 ML VIAL ONE (08:01)
[2016-10-10] MEDS ORDERED: ALBUMIN HUMAN 5% 500 ML VIAL IVPB ONE (08:01)
[2016-10-10] MEDS ORDERED: SODIUM CHLORIDE 0.9% IRRIG 1,000 ML BTL IRRIGATION ONE (08:01)
[2016-10-10] MEDS ORDERED: LIDOCAINE 2% SYG (PF) 100 MG/5 ML ONE (08:01)
[2016-10-10] MEDS ORDERED: HEPARIN SODIUM,PORCINE 5,000 UNIT/ML 1 ML VIAL ONE (08:01)
[2016-10-10] MEDS ORDERED: WATER FOR INJECTION, STERILE 10 ML VIAL IV ONE (08:01)
[2016-10-10] MEDS ORDERED: VECURONIUM 10 MG VIAL IV ONE (08:01)
[2016-10-10] MEDS ORDERED: fentaNYL (PF) 50 MCG/ML 2 ML AMP ONE (08:01)
[2016-10-10] MEDS ORDERED: fentaNYL (PF) 50 MCG/ML 50 ML VIAL ONE ×2 (08:01)
[2016-10-10 08:53] LABS: Glucose,Whole Blood 268 mg/dL (75-99)
[2016-10-10 10:01] LABS: Glucose,Whole Blood 275 mg/dL (75-99)
[2016-10-10 10:47] LABS: Glucose,Whole Blood 252 mg/dL (75-99)
[2016-10-10 11:16] LABS: Glucose,Whole Blood 332 mg/dL (75-99)
[2016-10-10 11:42] LABS: Glucose,Whole Blood 336 mg/dL (75-99)
[2016-10-10 12:15] LABS: Glucose,Whole Blood 276 mg/dL (75-99)
[2016-10-10 12:56] LABS: Glucose,Whole Blood 280 mg/dL (75-99)
[2016-10-10 13:39] LABS: Glucose,Whole Blood 276 mg/dL (75-99)
[2016-10-10 15:01] LABS: Glucose,Whole Blood 207 mg/dL (75-99)
[2016-10-10] MEDS ORDERED: ONDANSETRON 4 MG/2 ML VIAL IVP PRN (15:54)
[2016-10-10] MEDS ORDERED: ALBUMIN HUMAN 5% 250 ML in EMPTY BAG 1 BAG IVPB PRN (15:54)
[2016-10-10] MEDS ORDERED: NITROGLYCERIN-D5W PMX 50 MG in DEXTROSE/WATER 1 250ML.BAG IV SCH (15:54)
[2016-10-10] MEDS ORDERED: DILTIAZEM 125 MG in SODIUM CHLORIDE 0.9% 100 ML IV SCH (15:54)
[2016-10-10] MEDS ORDERED: PROPOFOL 1,000 MG/100 ML VIAL IV SCH (15:54)
[2016-10-10] MEDS ORDERED: CALCIUM GLUCONATE 2,000 MG in SODIUM CHLORIDE 0.9% 100 ML IVPB PRN (15:54)
[2016-10-10] MEDS ORDERED: Phosphorus Replacement Protoco 1 EACH MISC MISCELLANE PRN (15:54)
[2016-10-10] MEDS ORDERED: Potassium Replacement Protocol 1 EACH MISC MISCELLANE PRN (15:54)
[2016-10-10] MEDS ORDERED: BENZOCAINE/MENTHOL LOZENG 1 EACH LOZENGE MUCOUS MEM PRN (15:54)
[2016-10-10] MEDS ORDERED: Magnesium Replacement Protocol 1 EACH MISC MISCELLANE PRN (15:54)
[2016-10-10 15:57] LABS: Glucose,Whole Blood 171 mg/dL (75-99)
[2016-10-10 16:05] LABS: Basophils % (A) 0 %; CH 30.9; CHCM 36.1; Eosinophils # (A) 0.1 k/uL (0-0.7); Eosinophils % (A) 1 %; HCT 29.8 % (39.0-53.0); HDW 2.92; Luc # (Auto) 0.31; Luc % (Auto) 2; Lymphocytes # (A) 1.8 k/uL (1.0-4.8); Lymphocytes % (A) 11 %; MCH 29.3 pg (25.0-35.0); MCHC 34.2 g/dL (31.0-37.0); MCV 85.9 fL (80.0-100.0); Mean Platelet Volume 9.3; Monocytes # (A) 1.3 k/uL (0-1.0); Monocytes % (A) 8 %; Neutrophils # (A) 13.1 k/uL (1.3-7.7); Neutrophils % (A) 79 %; RBC 3.47 m/uL (4.30-5.90); RDW 13.5 % (11.5-15.5); WBC 16.5 k/uL (3.8-10.6); WBC (Perox) 16.59
[2016-10-10] MEDS: IPRATROPIUM-ALBUTEROL 3 ML NEB INHALATION SCH ×3 (16:11→23:18)
[2016-10-10 16:12] LABS: Ionized Calcium 4.8 mg/dL (4.5-5.3)
[2016-10-10 16:16] LABS: HGB 10.2 gm/dL (13.0-17.5); INR 1.4 (<1.2); Partial Thromboplastin Time 34.1 sec (22.0-30.0); Prothrombin Time 13.5 sec (9.0-12.0)
[2016-10-10 16:18] LABS: ALT 26 U/L (21-72); AST 36 U/L (17-59); Alkaline Phosphatase <20 U/L (38-126); Anion Gap 5 mmol/L; Blood Urea Nitrogen 25 mg/dL (9-20); Calcium 7.1 mg/dL (8.4-10.2); Carbon Dioxide 26 mmol/L (22-30); Chloride 109 mmol/L (98-107); Glucose 152 mg/dL (74-99); Magnesium 2.3 mg/dL (1.6-2.3); Non-African American GFR(MDRD) >60 (>60 ml/min/1.73 sqM); Potassium 4.1 mmol/L (3.5-5.1); Sodium 140 mmol/L (137-145); Total Bilirubin 0.6 mg/dL (0.2-1.3)
[2016-10-10 16:25] LABS: ABG Base Excess -0.4 mmol/L; ABG HCO3 25 mmol/L (21-25); ABG PCO2 54 mmHg (35-45); ABG PH 7.29 (7.35-7.45); ABG PO2 90 mmHg (83-108); ABG TCO2 27 mmol/L (19-24)
--- NOTE | 2016-10-10 16:33 | XR ---
EXAMINATION TYPE: XR chest 1V portable DATE OF EXAM: 10/10/2016 COMPARISON: NONE INDICATION: TECHNIQUE: Single frontal view of the chest is obtained. FINDINGS: The heart size is normal. The pulmonary vasculature is normal. Mild infiltrates at the left base. There is a left-sided chest tube. No pneumothorax is evident. [place] -Julián catheter is present with the tip in the main pulmonary artery. Endotracheal tube has its tip lo cated above the demi. Mediastinal tube is present. Nasogastric tube has its tip located within the left upper quadrant of the abdomen. IMPRESSION: 1. Multiple lines and catheters discussed above. 2. Mild retrocardiac infrahilar infiltrate. 3. No pneumothorax evident.
[2016-10-10] MEDS: ceFAZolin 2 GM in SODIUM CHLORIDE 0.9% 100 ML IVPB SCH (17:08)
[2016-10-10 17:09] LABS: Glucose,Whole Blood 157 mg/dL (75-99)
[2016-10-10] MEDS: LACTATED RINGERS 1,000 ML IV SCH (17:49)
[2016-10-10] MEDS: ACETAMINOPHEN IV (For NPO) 1,000 MG in EMPTY BAG 1 BAG IVPB SCH (17:50)
[2016-10-10 18:08] LABS: Glucose,Whole Blood 142 mg/dL (75-99)
[2016-10-10] MEDS: INSULIN REGULAR 100 UNIT in SODIUM CHLORIDE 0.9% 100 ML IV SCH (18:37)
[2016-10-10 19:10] LABS: Glucose,Whole Blood 127 mg/dL (75-99)
[2016-10-10 19:22] LABS: Basophils % (A) 0 %; CH 30.2; CHCM 36.2; Eosinophils % (A) 0 %; HCT 28.8 % (39.0-53.0); HDW 3.03; HGB 10.3 gm/dL (13.0-17.5); Luc # (Auto) 0.24; Luc % (Auto) 2; Lymphocytes % (A) 7 %; MCH 29.8 pg (25.0-35.0); MCHC 35.6 g/dL (31.0-37.0); MCV 83.6 fL (80.0-100.0); Mean Platelet Volume 7.1; Monocytes % (A) 7 %; Neutrophils # (A) 11.8 k/uL (1.3-7.7); Neutrophils % (A) 84 %; RBC 3.44 m/uL (4.30-5.90); RDW 13.3 % (11.5-15.5); WBC 14.1 k/uL (3.8-10.6); WBC (Perox) 14.67
[2016-10-10] MEDS: CLEVIDIPINE BUTYRATE 25 MG in EMPTY BAG 1 BAG IV SCH (19:26)
[2016-10-10] MEDS ORDERED: NOREPINEPHRIN 4 MG-0.9% NS PMX 4 MG/250 ML ML IV SCH (19:30)
[2016-10-10 20:11] LABS: Glucose,Whole Blood 136 mg/dL (75-99)
[2016-10-10] MEDS: MILRINONE-D5W PMX 20 MG in DEXTROSE/WATER 1 100ML.BAG IV SCH (21:08)
[2016-10-10 21:13] LABS: Glucose,Whole Blood 142 mg/dL (75-99)
[2016-10-10 22:10] LABS: Glucose,Whole Blood 153 mg/dL (75-99)
[2016-10-10 22:52] LABS: Basophils % (A) 0 %; CH 30.9; CHCM 36.2; Eosinophils % (A) 0 %; HCT 28.3 % (39.0-53.0); HDW 2.95; HGB 9.8 gm/dL (13.0-17.5); Luc # (Auto) 0.24; Luc % (Auto) 2; Lymphocytes # (A) 1.1 k/uL (1.0-4.8); Lymphocytes % (A) 9 %; MCH 29.7 pg (25.0-35.0); MCHC 34.5 g/dL (31.0-37.0); Mean Platelet Volume 7.9; Monocytes % (A) 8 %; Neutrophils # (A) 9.9 k/uL (1.3-7.7); Neutrophils % (A) 81 %; RBC 3.29 m/uL (4.30-5.90); RDW 13.8 % (11.5-15.5); WBC 12.2 k/uL (3.8-10.6); WBC (Perox) 12.62
[2016-10-10] MEDS ORDERED: DEXTROSE 5% IN WATER 1,000 ML with POTASSIUM CHLORIDE 25 MEQ, SODIUM CHLORIDE 4MEQ/ML V... IV PRN ×6 (23:00)
[2016-10-10 23:02] LABS: Ionized Calcium 4.8 mg/dL (4.5-5.3)
[2016-10-10 23:03] LABS: INR 1.2 (<1.2); Prothrombin Time 11.8 sec (9.0-12.0)
[2016-10-10 23:16] LABS: Anion Gap 5 mmol/L; Blood Urea Nitrogen 23 mg/dL (9-20); Calcium 7.7 mg/dL (8.4-10.2); Carbon Dioxide 26 mmol/L (22-30); Chloride 107 mmol/L (98-107); Glucose 139 mg/dL (74-99); Magnesium 2.1 mg/dL (1.6-2.3); Non-African American GFR(MDRD) >60 (>60 ml/min/1.73 sqM); Phosphorous 3.2 mg/dL (2.5-4.5); Potassium 4.1 mmol/L (3.5-5.1); Sodium 138 mmol/L (137-145)
[2016-10-10 23:24] LABS: Glucose,Whole Blood 167 mg/dL (75-99)
[2016-10-10] MEDS: MORPHINE SULFATE 2 MG/ML SYRINGE IVP PRN (23:33)
[2016-10-11] MEDS: ACETAMINOPHEN IV (For NPO) 1,000 MG in EMPTY BAG 1 BAG IVPB SCH ×4 (00:02→18:54)
[2016-10-11] MEDS: HEPARIN SODIUM,PORCINE 5,000 UNIT/ML 1 ML VIAL SQ SCH ×3 (00:02→18:54)
[2016-10-11] MEDS: ceFAZolin 2 GM in SODIUM CHLORIDE 0.9% 100 ML IVPB SCH ×2 (00:03→08:10)
[2016-10-11 00:09] LABS: Glucose,Whole Blood 167 mg/dL (75-99)
[2016-10-11 01:09] LABS: Glucose,Whole Blood 147 mg/dL (75-99)
[2016-10-11] MEDS: IPRATROPIUM-ALBUTEROL 3 ML NEB INHALATION SCH ×6 (02:50→21:08)
[2016-10-11 03:14] LABS: Glucose,Whole Blood 174 mg/dL (75-99)
[2016-10-11 03:28] LABS: ABG Base Excess 1.7 mmol/L; ABG HCO3 25 mmol/L (21-25); ABG PCO2 37 mmHg (35-45); ABG PH 7.45 (7.35-7.45); ABG PO2 99 mmHg (83-108); ABG TCO2 26 mmol/L (19-24)
[2016-10-11 05:01] LABS: Glucose,Whole Blood 165 mg/dL (75-99)
[2016-10-11 05:28] LABS: Basophils % (A) 0 %; CHCM 36.1; Eosinophils % (A) 0 %; HCT 27.8 % (39.0-53.0); HDW 2.93; HGB 9.5 gm/dL (13.0-17.5); Luc # (Auto) 0.17; Luc % (Auto) 2; Lymphocytes # (A) 0.8 k/uL (1.0-4.8); Lymphocytes % (A) 8 %; MCH 29.6 pg (25.0-35.0); MCHC 34.2 g/dL (31.0-37.0); MCV 86.4 fL (80.0-100.0); Mean Platelet Volume 8.3; Monocytes # (A) 0.8 k/uL (0-1.0); Monocytes % (A) 8 %; Neutrophils # (A) 7.4 k/uL (1.3-7.7); Neutrophils % (A) 81 %; RBC 3.21 m/uL (4.30-5.90); RDW 13.8 % (11.5-15.5); WBC 9.1 k/uL (3.8-10.6); WBC (Perox) 9.06
[2016-10-11 05:45] LABS: Ionized Calcium 4.9 mg/dL (4.5-5.3)
[2016-10-11 05:53] LABS: ALT 35 U/L (21-72); AST 41 U/L (17-59); Alkaline Phosphatase 29 U/L (38-126); Anion Gap 5 mmol/L; Blood Urea Nitrogen 21 mg/dL (9-20); Calcium 7.9 mg/dL (8.4-10.2); Carbon Dioxide 28 mmol/L (22-30); Chloride 106 mmol/L (98-107); Glucose 157 mg/dL (74-99); Non-African American GFR(MDRD) >60 (>60 ml/min/1.73 sqM); Potassium 3.8 mmol/L (3.5-5.1); Sodium 139 mmol/L (137-145); Total Bilirubin 0.7 mg/dL (0.2-1.3); Total Protein 4.2 g/dL (6.3-8.2)
[2016-10-11] MEDS: CLEVIDIPINE BUTYRATE 25 MG in EMPTY BAG 1 BAG IV SCH ×2 (05:56→22:50)
[2016-10-11 06:20] LABS: Glucose,Whole Blood 161 mg/dL (75-99)
--- NOTE | 2016-10-11 06:51 | XR ---
EXAMINATION TYPE: XR chest 1V portable DATE OF EXAM: 10/11/2016 HISTORY: Post Operative Cardiac Surgery. REFERENCE: Previous study dated 10/10/2016. FINDINGS: There has been a midline sternotomy. Since the previous study the patient has been extubate d. The patient is NG tube is been removed. The [place]-Julián catheter remains in place via a right editing intern al jugular approach. Its tip is in the right main pulmonary artery. There is a left pleural drain in place. There is improved aeration at the left lung base. Some residual airspace disease persists bilaterally . The heart is mildly prominent. There is mild vascular congestion without buck edema. IMPRESSION: CONTINUING POSTOPERATIVE CHANGE.
[2016-10-11 07:17] LABS: Glucose,Whole Blood 167 mg/dL (75-99)
[2016-10-11] MEDS: MILRINONE-D5W PMX 20 MG in DEXTROSE/WATER 1 100ML.BAG IV SCH ×2 (07:29→20:05)
[2016-10-11] MEDS ORDERED: KETOROLAC 30 MG/ML 1 ML VIAL IVP PRN (08:00)
[2016-10-11 08:05] LABS: Glucose,Whole Blood 167 mg/dL (75-99)
[2016-10-11] MEDS: POTASSIUM CHLORIDE 10 MEQ in WATER FOR INJECTION 1 100ML.BAG IVPB SCH ×2 (08:09→09:07)
[2016-10-11] MEDS ORDERED: PANTOPRAZOLE 40 MG/10 ML VIAL IVP SCH (09:00)
[2016-10-11 09:03] LABS: Glucose,Whole Blood 162 mg/dL (75-99)
[2016-10-11] MEDS: CLOPIDOGREL 75 MG TAB PO SCH (09:07)
[2016-10-11] MEDS: ASPIRIN 325 MG TAB PO SCH (09:07)
[2016-10-11] MEDS: METOPROLOL TARTRATE 12.5 MG TAB PO SCH ×2 (09:08→20:35)
[2016-10-11] MEDS: ATORVASTATIN 40 MG TAB PO SCH (09:08)
--- NOTE | 2016-10-11 09:41 | CONS ---
SUBJECTIVE: This is a 50 -year-old white male who was admitted with severe triple vessel disease, ischemic cardiomyopathy requiring four way bypass. He is status post bypass at this time. His sugars have been in the mid 100s postop. He remains on DuoNeb for COPD, Atorvastatin 40 daily. Pain medication with [place], aspirin 325 daily, Lipitor 40 daily, Cefazolin prophylactic antibiotic 2 gm daily, Plavix 75 mg daily, Diltiazem drip for A. fib with rapid ventricular response, metoprolol 12.5 b.i.d., Propofol, Protonix. Apparently he is on Oxycodone now, Norepinephrine drip, 4 mcg an hour , insulin drip. PHYSICAL EXAMINATION: Ophthalmologic: Pupils equal, round and reactive to light and accommodation. Skin shows warm, dry, kind of pale. Cardiovascular: S1, S2, tachycardic, irregularly irregular. Lungs show decreased breath sounds. Chest tube sounds without gurgling in the chest being addressed by chest surgeon. GI: Soft, nontender. Hematological: Negative Homanss. Vascular: Normal dorsalis pedis, posterior tibial and radial pulses. ASSESSMENT: 1. Status CABG surgery ischemic cardiomyopathy. 2. Cardiomyopathy status post ST elevation myocardial infarction. 3. Chronic obstructive pulmonary disease. 4. Insulin dependent diabetes mellitus. 5. Generalized debility. Continue with insulin drip. Follow along with his Accu-Cheks. Chest tubes will be addressed by chest surgeons. Continue on Plavix. Accelerated blood pressure control. Cholesterol control. Thank you ( ) SUKHDEEP
[2016-10-11 10:11] LABS: Glucose,Whole Blood 181 mg/dL (75-99)
[2016-10-11 11:09] LABS: Glucose,Whole Blood 172 mg/dL (75-99)
--- NOTE | 2016-10-11 12:17 | P.PN ---
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 Family history of coronary artery disease. Daily #1 urgent coronary artery bypass graft surgery with the left internal mammary artery to the left anterior descending artery, left radial artery to the ramus artery, reverse saphenous vein graft to the diagonal artery, reverse saphenous vein graft to posterior descending artery, left lower extremity endoscopic vein harvesting, left radial artery endoscopic harvesting, intraoperative transesophageal echocardiogram and epi-aortic scanning. Patient's currently sitting up in the bed in no acute distress. Was extubated this morning at 4:20. Still a bit sleepy but does wake up and respond to all commands, moves all extremities. Denies pain. Objective - Vital Signs Vital signs: Vital Signs Temp 98.1 F 10/10/16 17:00 Pulse 88 10/11/16 11:38 Resp 23 10/11/16 10:00 BP 153/90 10/10/16 06:12 Pulse Ox 97 10/11/16 11:46 Intake & Output 10/10/16 10/11/16 10/11/16 18:59 06:59 18:59 Intake Total 400 1300.868 740.305 Output Total 4690 1723 620 Balance -4290 -422.132 120.305 Weight 87.2 kg 95.4 kg 95.4 kg Intake: IV 1159.0 339.0 ACETAMINOPHEN IV (For NPO 200 ) 1,000 mg In Empty Bag 1 bag @ 400 mls/hr IVPB Q6HR [facility] Rx#:[id number] CO/CI 133 23 Diltiazem 125 mg In 55 5 Sodium Chloride 0.9% 100 ml @ 5 MG/HR 5 mls/hr IV .Q24H [facility] Rx#:[id number] Lactated Ringers 1,000 ml 550 200 @ 20 mls/hr IV .Q24H [facility] Rx#:[id number] Milrinone-D5w Pmx 20 mg 104.5 9.5 In Dextrose/Water 1 100ml .bag @ 0.2 MCG/KG/MIN 5. 23 mls/hr IV .Q19H8M [facility] Rx#:[id number] Nitroglycerin-D5w Pmx 50 16.5 1.5 mg In Dextrose/Water 1 250ml.bag @ 5 MCG/MIN 1.5 mls/hr IV .Q24H [facility] Rx#: [id number] ceFAZolin 2,000 mg In 100 100 Sodium Chloride 0.9% 30 ml @ 999 mls/hr IVPB ONCE PRN Rx#:[id number] Intake, IV Titration 400 141.868 401.305 Amount ACETAMINOPHEN IV (For NPO 100 ) 1,000 mg In Empty Bag 1 bag @ 400 mls/hr IVPB Q6HR [facility] Rx#:[id number] Clevidipine Butyrate 25 0.533 mg In Empty Bag 1 bag @ 1 MG/HR 2 mls/hr IV .Q24H [facility] Rx#:[id number] Diltiazem 125 mg In 8.167 63.667 Sodium Chloride 0.9% 100 ml @ 5 MG/HR 5 mls/hr IV .Q24H [facility] Rx#:[id number] Insulin Regular 100 unit 13.863 25.122 In Sodium Chloride 0.9% 100 ml @ Per Protocol IV .Q0M [facility] Rx#:[id number] Lactated Ringers 1,000 ml 200 50 @ 20 mls/hr IV .Q24H [facility] Rx#:[id number] Milrinone-D5w Pmx 20 mg 94.341 In Dextrose/Water 1 100ml .bag @ 0.2 MCG/KG/MIN 5. 23 mls/hr IV .Q19H8M [facility] Rx#:[id number] Nitroglycerin-D5w Pmx 50 18.175 mg In Dextrose/Water 1 250ml.bag @ 5 MCG/MIN 1.5 mls/hr IV .Q24H PRN Rx#: [id number] Norepinephrin 4 mg-0.9% 41.0 Ns Pmx 4 mg In 250 ml @ Titrate IV .Q0M [facility] Rx#: [id number] Potassium Chloride 10 meq 200 In Water For Injection 1 100ml.bag @ 100 mls/hr IVPB Q1H [facility] Rx#: [id number] Propofol 1,000 mg In 100 16.751 ml @ Titrate IV .Q0M PRN Rx#:[id number] Propofol 1,000 mg In 100 11.554 ml @ Titrate IV .Q0M [facility] Rx#:[id number] ceFAZolin 2 gm In Sodium 100 Chloride 0.9% 100 ml @ 100 mls/hr IVPB Q8HR [facility] Rx#:[id number] Output: Chest Tube Drainage 250 378 140 Bilateral Mediastinal 60 328 90 Chest Tube Left Lateral 190 50 50 Chest Gastric Drainage 150 Drainage 110 60 left medial calf 110 60 Urine 1330 1135 480 Estimated Blood Loss 3000 Other: Voiding Method Indwelling Catheter Indwelling Catheter Indwelling Catheter # Voids 1 1 ABP, PAP, CO, CI - Last Documented Arterial Blood Pressure 131/60 Pulmonary Artery Pressure 30/13 Cardiac Output 7.3 Cardiac Index 3.6 - Constitutional General appearance: Present: cooperative, no acute distress, obese - Respiratory Details: Lungs sounds diminished bilaterally. Respirations even, nonlabored. Currently on 8 L high flow oxygen with saturations 97%. Only able to achieve 250 mL on his incentive spirometry. Mediastinal chest tube to -20 cm wall suction, 240 mL drainage overnight, 470 mL since surgery, positive air leak. Left pleural chest tube to -20 cm wall suction, 30 mL drainage overnight, 350 mL since surgery, no air leak present. Ineffective cough. - Cardiovascular Details: S1, S2 present. Regular rate and rhythm, normal sinus rhythm on telemetry. Very loud pericardial rub. Sternum stable. A/V epicardial pacemaker wires present, connected to generator, VVI mode with backup rate of 60 bpm. Right radial arterial line, right internal jugular Cordis/Villard-Julián catheter present. Palpable pulses bilaterally. No edema present. Heart hugger in place with patient unable to demonstrate appropriate use. Teds/SCDs present. - Gastrointestinal Gastrointestinal Comment(s): Abdomen soft, nontender, nondistended. Hypoactive bowel sounds present 4 quadrants. - Genitourinary Genitourinary Comment(s): Rosario present draining clear, yellow urine. Output 75-185 mL per hour. - Integumentary Integumentary Comment(s): Anterior sternal incision well approximated and covered with dry intact dressing. Left lower extremity EVH site well approximated, JOSE drain in place with 60 mL drainage overnight. Left radial harvest site well approximated with Dermabond. - Musculoskeletal Musculoskeletal: Present: strength equal bilaterally - Psychiatric Psychiatric Comment(s): Able to state name, shakes his head no when asked if he knows where he sat or the year. Sleepy still but does arouse to try to answer questions by nodding/ shaking head. - Allied health notes Allied health notes reviewed: nursing - Labs CBC & Chem 7: 10/11/16 05:00 10/11/16 05:00 Labs: Abnormal Lab Results - Last 24 Hours (Table) 10/09/16 10/10/16 10/10/16 Range/Units 05:44 12:13 12:43 WBC (3.8-10.6) k/uL RBC (4.30-5.90) m/uL Hgb (13.0-17.5) gm/dL Hct (39.0-53.0) % Plt Count (150-450) k/uL Neutrophils # (1.3-7.7) k/uL Lymphocytes # (1.0-4.8) k/uL Monocytes # (0-1.0) k/uL PT (9.0-12.0) sec INR (<1.2) APTT (22.0-30.0) sec ABG pH (7.35-7.45) ABG pCO2 (35-45) mmHg ABG Total CO2 (19-24) mmol/L ABG O2 Saturation (94-97) % Chloride (98-107) mmol/L BUN (9-20) mg/dL Glucose (74-99) mg/dL POC Glucose (mg/dL) 276 H 280 H (75-99) mg/dL Calcium (8.4-10.2) mg/dL Alkaline Phosphatase (38-126) U/L Total Protein (6.3-8.2) g/dL Albumin (3.5-5.0) g/dL Crossmatch See Detail 10/10/16 10/10/16 10/10/16 Range/Units 13:35 14:46 15:50 WBC 16.5 H (3.8-10.6) k/uL RBC 3.47 L (4.30-5.90) m/uL Hgb 10.2 L D (13.0-17.5) gm/dL Hct 29.8 L (39.0-53.0) % Plt Count 119 L (150-450) k/uL Neutrophils # 13.1 H (1.3-7.7) k/uL Lymphocytes # (1.0-4.8) k/uL Monocytes # 1.3 H (0-1.0) k/uL PT (9.0-12.0) sec INR (<1.2) APTT (22.0-30.0) sec ABG pH (7.35-7.45) ABG pCO2 (35-45) mmHg ABG Total CO2 (19-24) mmol/L ABG O2 Saturation (94-97) % Chloride (98-107) mmol/L BUN (9-20) mg/dL Glucose (74-99) mg/dL POC Glucose (mg/dL) 276 H 207 H (75-99) mg/dL Calcium (8.4-10.2) mg/dL Alkaline Phosphatase (38-126) U/L Total Protein (6.3-8.2) g/dL Albumin (3.5-5.0) g/dL Crossmatch 10/10/16 10/10/16 10/10/16 Range/Units 15:50 15:50 15:53 WBC (3.8-10.6) k/uL RBC (4.30-5.90) m/uL Hgb (13.0-17.5) gm/dL Hct (39.0-53.0) % Plt Count (150-450) k/uL Neutrophils # (1.3-7.7) k/uL Lymphocytes # (1.0-4.8) k/uL Monocytes # (0-1.0) k/uL PT 13.5 H (9.0-12.0) sec INR 1.4 H (<1.2) APTT 34.1 H (22.0-30.0) sec ABG pH (7.35-7.45) ABG pCO2 (35-45) mmHg ABG Total CO2 (19-24) mmol/L ABG O2 Saturation (94-97) % Chloride 109 H (98-107) mmol/L BUN 25 H (9-20) mg/dL Glucose 152 H (74-99) mg/dL POC Glucose (mg/dL) 171 H (75-99) mg/dL Calcium 7.1 L (8.4-10.2) mg/dL Alkaline Phosphatase <20 L (38-126) U/L Total Protein 4.0 L (6.3-8.2) g/dL Albumin 2.7 L (3.5-5.0) g/dL Crossmatch 10/10/16 10/10/16 10/10/16 Range/Units 16:17 17:04 18:07 WBC (3.8-10.6) k/uL RBC (4.30-5.90) m/uL Hgb (13.0-17.5) gm/dL Hct (39.0-53.0) % Plt Count (150-450) k/uL Neutrophils # (1.3-7.7) k/uL Lymphocytes # (1.0-4.8) k/uL Monocytes # (0-1.0) k/uL PT (9.0-12.0) sec INR (<1.2) APTT (22.0-30.0) sec ABG pH 7.29 L (7.35-7.45) ABG pCO2 54 H (35-45) mmHg ABG Total CO2 27 H (19-24) mmol/L ABG O2 Saturation (94-97) % Chloride (98-107) mmol/L BUN (9-20) mg/dL Glucose (74-99) mg/dL POC Glucose (mg/dL) 157 H 142 H (75-99) mg/dL Calcium (8.4-10.2) mg/dL Alkaline Phosphatase (38-126) U/L Total Protein (6.3-8.2) g/dL Albumin (3.5-5.0) g/dL Crossmatch 10/10/16 10/10/16 10/10/16 Range/Units 18:35 19:09 20:10 WBC 14.1 H (3.8-10.6) k/uL RBC 3.44 L (4.30-5.90) m/uL Hgb 10.3 L (13.0-17.5) gm/dL Hct 28.8 L (39.0-53.0) % Plt Count 125 L (150-450) k/uL Neutrophils # 11.8 H (1.3-7.7) k/uL Lymphocytes # (1.0-4.8) k/uL Monocytes # (0-1.0) k/uL PT (9.0-12.0) sec INR (<1.2) APTT (22.0-30.0) sec ABG pH (7.35-7.45) ABG pCO2 (35-45) mmHg ABG Total CO2 (19-24) mmol/L ABG O2 Saturation (94-97) % Chloride (98-107) mmol/L BUN (9-20) mg/dL Glucose (74-99) mg/dL POC Glucose (mg/dL) 127 H 136 H (75-99) mg/dL Calcium (8.4-10.2) mg/dL Alkaline Phosphatase (38-126) U/L Total Protein (6.3-8.2) g/dL Albumin (3.5-5.0) g/dL Crossmatch 10/10/16 10/10/16 10/10/16 Range/Units 21:12 22:09 22:20 WBC (3.8-10.6) k/uL RBC (4.30-5.90) m/uL Hgb (13.0-17.5) gm/dL Hct (39.0-53.0) % Plt Count (150-450) k/uL Neutrophils # (1.3-7.7) k/uL Lymphocytes # (1.0-4.8) k/uL Monocytes # (0-1.0) k/uL PT (9.0-12.0) sec INR 1.2 H (<1.2) APTT (22.0-30.0) sec ABG pH (7.35-7.45) ABG pCO2 (35-45) mmHg ABG Total CO2 (19-24) mmol/L ABG O2 Saturation (94-97) % Chloride (98-107) mmol/L BUN (9-20) mg/dL Glucose (74-99) mg/dL POC Glucose (mg/dL) 142 H 153 H (75-99) mg/dL Calcium (8.4-10.2) mg/dL Alkaline Phosphatase (38-126) U/L Total Protein (6.3-8.2) g/dL Albumin (3.5-5.0) g/dL Crossmatch 10/10/16 10/10/16 10/10/16 Range/Units 22:20 22:20 23:23 WBC 12.2 H (3.8-10.6) k/uL RBC 3.29 L (4.30-5.90) m/uL Hgb 9.8 L (13.0-17.5) gm/dL Hct 28.3 L (39.0-53.0) % Plt Count 118 L (150-450) k/uL Neutrophils # 9.9 H (1.3-7.7) k/uL Lymphocytes # (1.0-4.8) k/uL Monocytes # (0-1.0) k/uL PT (9.0-12.0) sec INR (<1.2) APTT (22.0-30.0) sec ABG pH (7.35-7.45) ABG pCO2 (35-45) mmHg ABG Total CO2 (19-24) mmol/L ABG O2 Saturation (94-97) % Chloride (98-107) mmol/L BUN 23 H (9-20) mg/dL Glucose 139 H (74-99) mg/dL POC Glucose (mg/dL) 167 H (75-99) mg/dL Calcium 7.7 L (8.4-10.2) mg/dL Alkaline Phosphatase (38-126) U/L Total Protein (6.3-8.2) g/dL Albumin (3.5-5.0) g/dL Crossmatch 10/11/16 10/11/16 10/11/16 Range/Units 00:07 01:07 03:13 WBC (3.8-10.6) k/uL RBC (4.30-5.90) m/uL Hgb (13.0-17.5) gm/dL Hct (39.0-53.0) % Plt Count (150-450) k/uL Neutrophils # (1.3-7.7) k/uL Lymphocytes # (1.0-4.8) k/uL Monocytes # (0-1.0) k/uL PT (9.0-12.0) sec INR (<1.2) APTT (22.0-30.0) sec ABG pH (7.35-7.45) ABG pCO2 (35-45) mmHg ABG Total CO2 (19-24) mmol/L ABG O2 Saturation (94-97) % Chloride (98-107) mmol/L BUN (9-20) mg/dL Glucose (74-99) mg/dL POC Glucose (mg/dL) 167 H 147 H 174 H (75-99) mg/dL Calcium (8.4-10.2) mg/dL Alkaline Phosphatase (38-126) U/L Total Protein (6.3-8.2) g/dL Albumin (3.5-5.0) g/dL Crossmatch 10/11/16 10/11/16 10/11/16 Range/Units 03:17 04:59 05:00 WBC (3.8-10.6) k/uL RBC 3.21 L (4.30-5.90) m/uL Hgb 9.5 L (13.0-17.5) gm/dL Hct 27.8 L (39.0-53.0) % Plt Count 97 L (150-450) k/uL Neutrophils # (1.3-7.7) k/uL Lymphocytes # 0.8 L (1.0-4.8) k/uL Monocytes # (0-1.0) k/uL PT (9.0-12.0) sec INR (<1.2) APTT (22.0-30.0) sec ABG pH (7.35-7.45) ABG pCO2 (35-45) mmHg ABG Total CO2 26 H (19-24) mmol/L ABG O2 Saturation 98.0 H (94-97) % Chloride (98-107) mmol/L BUN (9-20) mg/dL Glucose (74-99) mg/dL POC Glucose (mg/dL) 165 H (75-99) mg/dL Calcium (8.4-10.2) mg/dL Alkaline Phosphatase (38-126) U/L Total Protein (6.3-8.2) g/dL Albumin (3.5-5.0) g/dL Crossmatch 10/11/16 10/11/16 10/11/16 Range/Units 05:00 06:20 07:17 WBC (3.8-10.6) k/uL RBC (4.30-5.90) m/uL Hgb (13.0-17.5) gm/dL Hct (39.0-53.0) % Plt Count (150-450) k/uL Neutrophils # (1.3-7.7) k/uL Lymphocytes # (1.0-4.8) k/uL Monocytes # (0-1.0) k/uL PT (9.0-12.0) sec INR (<1.2) APTT (22.0-30.0) sec ABG pH (7.35-7.45) ABG pCO2 (35-45) mmHg ABG Total CO2 (19-24) mmol/L ABG O2 Saturation (94-97) % Chloride (98-107) mmol/L BUN 21 H (9-20) mg/dL Glucose 157 H (74-99) mg/dL POC Glucose (mg/dL) 161 H 167 H (75-99) mg/dL Calcium 7.9 L (8.4-10.2) mg/dL Alkaline Phosphatase 29 L (38-126) U/L Total Protein 4.2 L (6.3-8.2) g/dL Albumin 2.7 L (3.5-5.0) g/dL Crossmatch 10/11/16 10/11/16 10/11/16 Range/Units 08:01 08:01 09:01 WBC (3.8-10.6) k/uL RBC (4.30-5.90) m/uL Hgb (13.0-17.5) gm/dL Hct (39.0-53.0) % Plt Count (150-450) k/uL Neutrophils # (1.3-7.7) k/uL Lymphocytes # (1.0-4.8) k/uL Monocytes # (0-1.0) k/uL PT (9.0-12.0) sec INR (<1.2) APTT (22.0-30.0) sec ABG pH (7.35-7.45) ABG pCO2 (35-45) mmHg ABG Total CO2 (19-24) mmol/L ABG O2 Saturation (94-97) % Chloride (98-107) mmol/L BUN (9-20) mg/dL Glucose (74-99) mg/dL POC Glucose (mg/dL) 167 H 167 H 162 H (75-99) mg/dL Calcium (8.4-10.2) mg/dL Alkaline Phosphatase (38-126) U/L Total Protein (6.3-8.2) g/dL Albumin (3.5-5.0) g/dL Crossmatch 10/11/16 10/11/16 Range/Units 10:10 11:08 WBC (3.8-10.6) k/uL RBC (4.30-5.90) m/uL Hgb (13.0-17.5) gm/dL Hct (39.0-53.0) % Plt Count (150-450) k/uL Neutrophils # (1.3-7.7) k/uL Lymphocytes # (1.0-4.8) k/uL Monocytes # (0-1.0) k/uL PT (9.0-12.0) sec INR (<1.2) APTT (22.0-30.0) sec ABG pH (7.35-7.45) ABG pCO2 (35-45) mmHg ABG Total CO2 (19-24) mmol/L ABG O2 Saturation (94-97) % Chloride (98-107) mmol/L BUN (9-20) mg/dL Glucose (74-99) mg/dL POC Glucose (mg/dL) 181 H 172 H (75-99) mg/dL Calcium (8.4-10.2) mg/dL Alkaline Phosphatase (38-126) U/L Total Protein (6.3-8.2) g/dL Albumin (3.5-5.0) g/dL Crossmatch - Imaging and Cardiology Chest x-ray: report reviewed, image reviewed Assessment and Plan (1) Tobacco dependence in remission Status: Acute (2) Recovering alcoholic in remission Status: Acute (3) Drug addiction in remission Status: Acute (4) Bipolar 1 disorder Status: Acute (5) CHF NYHA class III (symptoms with mildly strenuous activities) Status: Acute (6) COPD (chronic obstructive pulmonary disease) Status: Acute (7) Coronary artery disease Status: Acute (8) Hypertension Status: Acute (9) Non-STEMI (non-ST elevated myocardial infarction) Status: Acute (10) Uncontrolled type 2 diabetes mellitus Status: Acute Plan: 1. Continue aspirin, statin, Plavix, heparin subcu, caleb. Will maximize beta caleb therapy as tolerated. 2. Discontinue nitro drip. Discontinue Cardizem drip, transition to oral Cardizem for radial artery spasm prevention. 3. Wean Cleviprex. 4. Wean Primacor. 5. Wean O2 as tolerated. Encourage incentive spirometry use. 6. Increase activity, out of bed to chair as tolerated. Physical therapy to follow. 7. GI/DVT prophylaxis. 8. Will monitor daily labs, x-rays. 9. Bedside swallow attempted this morning, patient quite drowsy. Will attempt again, if no success will order formal swallow evaluation. 10. More recommendations as patient progresses. Time with Patient: Greater than 30 <Ramesh Klein - Last Filed: 10/11/16 17:08> Objective - Vital Signs Vital signs: Vital Signs Temp 98.1 F 10/10/16 17:00 Pulse 87 10/11/16 16:00 Resp 14 10/11/16 16:00 BP 153/90 10/10/16 06:12 Pulse Ox 98 10/11/16 16:00 Intake & Output 10/10/16 10/11/16 10/11/16 18:59 06:59 18:59 Intake Total 400 8569.535 8021.193 Output Total 4690 1723 1155 Balance -4290 -422.132 71.193 Weight 87.2 kg 95.4 kg 95.4 kg Intake: IV 1159.0 769.0 ACETAMINOPHEN IV (For NPO 200 100 ) 1,000 mg In Empty Bag 1 bag @ 400 mls/hr IVPB Q6HR [facility] Rx#:[id number] CO/CI 133 103 Diltiazem 125 mg In 55 5 Sodium Chloride 0.9% 100 ml @ 5 MG/HR 5 mls/hr IV .Q24H [facility] Rx#:[id number] Lactated Ringers 1,000 ml 550 450 @ 20 mls/hr IV .Q24H [facility] Rx#:[id number] Milrinone-D5w Pmx 20 mg 104.5 9.5 In Dextrose/Water 1 100ml .bag @ 0.1 MCG/KG/MIN 2. 61 mls/hr IV .Q24H [facility] Rx #:[id number] Nitroglycerin-D5w Pmx 50 16.5 1.5 mg In Dextrose/Water 1 250ml.bag @ 5 MCG/MIN 1.5 mls/hr IV .Q24H [facility] Rx#: [id number] ceFAZolin 2,000 mg In 100 100 Sodium Chloride 0.9% 30 ml @ 999 mls/hr IVPB ONCE PRN Rx#:[id number] Intake, IV Titration 400 141.868 457.193 Amount ACETAMINOPHEN IV (For NPO 100 ) 1,000 mg In Empty Bag 1 bag @ 400 mls/hr IVPB Q6HR [facility] Rx#:[id number] Clevidipine Butyrate 25 0.533 28.4 mg In Empty Bag 1 bag @ 1 MG/HR 2 mls/hr IV .Q24H [facility] Rx#:[id number] Diltiazem 125 mg In 8.167 63.667 Sodium Chloride 0.9% 100 ml @ 5 MG/HR 5 mls/hr IV .Q24H [facility] Rx#:[id number] Insulin Regular 100 unit 13.863 40.407 In Sodium Chloride 0.9% 100 ml @ Per Protocol IV .Q0M [facility] Rx#:[id number] Lactated Ringers 1,000 ml 200 50 @ 20 mls/hr IV .Q24H [facility] Rx#:[id number] Milrinone-D5w Pmx 20 mg 106.544 In Dextrose/Water 1 100ml .bag @ 0.1 MCG/KG/MIN 2. 61 mls/hr IV .Q24H [facility] Rx #:[id number] Nitroglycerin-D5w Pmx 50 18.175 mg In Dextrose/Water 1 250ml.bag @ 5 MCG/MIN 1.5 mls/hr IV .Q24H PRN Rx#: [id number] Norepinephrin 4 mg-0.9% 41.0 Ns Pmx 4 mg In 250 ml @ Titrate IV .Q0M [facility] Rx#: [id number] Potassium Chloride 10 meq 200 In Water For Injection 1 100ml.bag @ 100 mls/hr IVPB Q1H [facility] Rx#: [id number] Propofol 1,000 mg In 100 16.751 ml @ Titrate IV .Q0M PRN Rx#:[id number] Propofol 1,000 mg In 100 11.554 ml @ Titrate IV .Q0M [facility] Rx#:[id number] ceFAZolin 2 gm In Sodium 100 Chloride 0.9% 100 ml @ 100 mls/hr IVPB Q8HR [facility] Rx#:[id number] Output: Chest Tube Drainage 250 378 290 Bilateral Mediastinal 60 328 210 Chest Tube Left Lateral 190 50 80 Chest Gastric Drainage 150 Drainage 110 60 40 left medial calf 110 60 40 Urine 1330 1135 825 Estimated Blood Loss 3000 Other: Voiding Method Indwelling Catheter Indwelling Catheter Indwelling Catheter # Voids 1 1 ABP, PAP, CO, CI - Last Documented Arterial Blood Pressure 120/58 Pulmonary Artery Pressure 30/16 Cardiac Output 5.3 Cardiac Index 2.6 - Labs CBC & Chem 7: 10/11/16 05:00 10/11/16 05:00 Labs: Abnormal Lab Results - Last 24 Hours (Table) 10/09/16 10/10/16 10/10/16 Range/Units 05:44 17:04 18:07 WBC (3.8-10.6) k/uL RBC (4.30-5.90) m/uL Hgb (13.0-17.5) gm/dL Hct (39.0-53.0) % Plt Count (150-450) k/uL Neutrophils # (1.3-7.7) k/uL Lymphocytes # (1.0-4.8) k/uL INR (<1.2) ABG Total CO2 (19-24) mmol/L ABG O2 Saturation (94-97) % BUN (9-20) mg/dL Glucose (74-99) mg/dL POC Glucose (mg/dL) 157 H 142 H (75-99) mg/dL Calcium (8.4-10.2) mg/dL Alkaline Phosphatase (38-126) U/L Total Protein (6.3-8.2) g/dL Albumin (3.5-5.0) g/dL Crossmatch See Detail 10/10/16 10/10/16 10/10/16 Range/Units 18:35 19:09 20:10 WBC 14.1 H (3.8-10.6) k/uL RBC 3.44 L (4.30-5.90) m/uL Hgb 10.3 L (13.0-17.5) gm/dL Hct 28.8 L (39.0-53.0) % Plt Count 125 L (150-450) k/uL Neutrophils # 11.8 H (1.3-7.7) k/uL Lymphocytes # (1.0-4.8) k/uL INR (<1.2) ABG Total CO2 (19-24) mmol/L ABG O2 Saturation (94-97) % BUN (9-20) mg/dL Glucose (74-99) mg/dL POC Glucose (mg/dL) 127 H 136 H (75-99) mg/dL Calcium (8.4-10.2) mg/dL Alkaline Phosphatase (38-126) U/L Total Protein (6.3-8.2) g/dL Albumin (3.5-5.0) g/dL Crossmatch 10/10/16 10/10/16 10/10/16 Range/Units 21:12 22:09 22:20 WBC (3.8-10.6) k/uL RBC (4.30-5.90) m/uL Hgb (13.0-17.5) gm/dL Hct (39.0-53.0) % Plt Count (150-450) k/uL Neutrophils # (1.3-7.7) k/uL Lymphocytes # (1.0-4.8) k/uL INR 1.2 H (<1.2) ABG Total CO2 (19-24) mmol/L ABG O2 Saturation (94-97) % BUN (9-20) mg/dL Glucose (74-99) mg/dL POC Glucose (mg/dL) 142 H 153 H (75-99) mg/dL Calcium (8.4-10.2) mg/dL Alkaline Phosphatase (38-126) U/L Total Protein (6.3-8.2) g/dL Albumin (3.5-5.0) g/dL Crossmatch 10/10/16 10/10/16 10/10/16 Range/Units 22:20 22:20 23:23 WBC 12.2 H (3.8-10.6) k/uL RBC 3.29 L (4.30-5.90) m/uL Hgb 9.8 L (13.0-17.5) gm/dL Hct 28.3 L (39.0-53.0) % Plt Count 118 L (150-450) k/uL Neutrophils # 9.9 H (1.3-7.7) k/uL Lymphocytes # (1.0-4.8) k/uL INR (<1.2) ABG Total CO2 (19-24) mmol/L ABG O2 Saturation (94-97) % BUN 23 H (9-20) mg/dL Glucose 139 H (74-99) mg/dL POC Glucose (mg/dL) 167 H (75-99) mg/dL Calcium 7.7 L (8.4-10.2) mg/dL Alkaline Phosphatase (38-126) U/L Total Protein (6.3-8.2) g/dL Albumin (3.5-5.0) g/dL Crossmatch 10/11/16 10/11/16 10/11/16 Range/Units 00:07 01:07 03:13 WBC (3.8-10.6) k/uL RBC (4.30-5.90) m/uL Hgb (13.0-17.5) gm/dL Hct (39.0-53.0) % Plt Count (150-450) k/uL Neutrophils # (1.3-7.7) k/uL Lymphocytes # (1.0-4.8) k/uL INR (<1.2) ABG Total CO2 (19-24) mmol/L ABG O2 Saturation (94-97) % BUN (9-20) mg/dL Glucose (74-99) mg/dL POC Glucose (mg/dL) 167 H 147 H 174 H (75-99) mg/dL Calcium (8.4-10.2) mg/dL Alkaline Phosphatase (38-126) U/L Total Protein (6.3-8.2) g/dL Albumin (3.5-5.0) g/dL Crossmatch 10/11/16 10/11/16 10/11/16 Range/Units 03:17 04:59 05:00 WBC (3.8-10.6) k/uL RBC 3.21 L (4.30-5.90) m/uL Hgb 9.5 L (13.0-17.5) gm/dL Hct 27.8 L (39.0-53.0) % Plt Count 97 L (150-450) k/uL Neutrophils # (1.3-7.7) k/uL Lymphocytes # 0.8 L (1.0-4.8) k/uL INR (<1.2) ABG Total CO2 26 H (19-24) mmol/L ABG O2 Saturation 98.0 H (94-97) % BUN (9-20) mg/dL Glucose (74-99) mg/dL POC Glucose (mg/dL) 165 H (75-99) mg/dL Calcium (8.4-10.2) mg/dL Alkaline Phosphatase (38-126) U/L Total Protein (6.3-8.2) g/dL Albumin (3.5-5.0) g/dL Crossmatch 10/11/16 10/11/16 10/11/16 Range/Units 05:00 06:20 07:17 WBC (3.8-10.6) k/uL RBC (4.30-5.90) m/uL Hgb (13.0-17.5) gm/dL Hct (39.0-53.0) % Plt Count (150-450) k/uL Neutrophils # (1.3-7.7) k/uL Lymphocytes # (1.0-4.8) k/uL INR (<1.2) ABG Total CO2 (19-24) mmol/L ABG O2 Saturation (94-97) % BUN 21 H (9-20) mg/dL Glucose 157 H (74-99) mg/dL POC Glucose (mg/dL) 161 H 167 H (75-99) mg/dL Calcium 7.9 L (8.4-10.2) mg/dL Alkaline Phosphatase 29 L (38-126) U/L Total Protein 4.2 L (6.3-8.2) g/dL Albumin 2.7 L (3.5-5.0) g/dL Crossmatch 10/11/16 10/11/16 10/11/16 Range/Units 08:01 08:01 09:01 WBC (3.8-10.6) k/uL RBC (4.30-5.90) m/uL Hgb (13.0-17.5) gm/dL Hct (39.0-53.0) % Plt Count (150-450) k/uL Neutrophils # (1.3-7.7) k/uL Lymphocytes # (1.0-4.8) k/uL INR (<1.2) ABG Total CO2 (19-24) mmol/L ABG O2 Saturation (94-97) % BUN (9-20) mg/dL Glucose (74-99) mg/dL POC Glucose (mg/dL) 167 H 167 H 162 H (75-99) mg/dL Calcium (8.4-10.2) mg/dL Alkaline Phosphatase (38-126) U/L Total Protein (6.3-8.2) g/dL Albumin (3.5-5.0) g/dL Crossmatch 10/11/16 10/11/16 10/11/16 Range/Units 10:10 11:08 12:24 WBC (3.8-10.6) k/uL RBC (4.30-5.90) m/uL Hgb (13.0-17.5) gm/dL Hct (39.0-53.0) % Plt Count (150-450) k/uL Neutrophils # (1.3-7.7) k/uL Lymphocytes # (1.0-4.8) k/uL INR (<1.2) ABG Total CO2 (19-24) mmol/L ABG O2 Saturation (94-97) % BUN (9-20) mg/dL Glucose (74-99) mg/dL POC Glucose (mg/dL) 181 H 172 H 174 H (75-99) mg/dL Calcium (8.4-10.2) mg/dL Alkaline Phosphatase (38-126) U/L Total Protein (6.3-8.2) g/dL Albumin (3.5-5.0) g/dL Crossmatch 10/11/16 10/11/16 10/11/16 Range/Units 13:05 14:05 15:05 WBC (3.8-10.6) k/uL RBC (4.30-5.90) m/uL Hgb (13.0-17.5) gm/dL Hct (39.0-53.0) % Plt Count (150-450) k/uL Neutrophils # (1.3-7.7) k/uL Lymphocytes # (1.0-4.8) k/uL INR (<1.2) ABG Total CO2 (19-24) mmol/L ABG O2 Saturation (94-97) % BUN (9-20) mg/dL Glucose (74-99) mg/dL POC Glucose (mg/dL) 171 H 180 H 180 H (75-99) mg/dL Calcium (8.4-10.2) mg/dL Alkaline Phosphatase (38-126) U/L Total Protein (6.3-8.2) g/dL Albumin (3.5-5.0) g/dL Crossmatch 10/11/16 Range/Units 16:14 WBC (3.8-10.6) k/uL RBC (4.30-5.90) m/uL Hgb (13.0-17.5) gm/dL Hct (39.0-53.0) % Plt Count (150-450) k/uL Neutrophils # (1.3-7.7) k/uL Lymphocytes # (1.0-4.8) k/uL INR (<1.2) ABG Total CO2 (19-24) mmol/L ABG O2 Saturation (94-97) % BUN (9-20) mg/dL Glucose (74-99) mg/dL POC Glucose (mg/dL) 179 H (75-99) mg/dL Calcium (8.4-10.2) mg/dL Alkaline Phosphatase (38-126) U/L Total Protein (6.3-8.2) g/dL Albumin (3.5-5.0) g/dL Crossmatch Assessment and Plan Plan: The patient was seen and examined. Agree with the above assessment and plan. He was extubated earlier this morning. Currently on nasal cannula. His milrinone has been discontinued. We will plan on removing his Villard-Julián catheter. We will continue Cardizem for now and start a beta caleb. From a neurological standpoint, the patient is quite drowsy. He does appear to move all extremities and follow commands though. Given these findings, we will order a computed tomography scan of the head. Otherwise we will continue with pulmonary toilet and incentive spirometry.
[2016-10-11 12:44] LABS: Glucose,Whole Blood 174 mg/dL (75-99)
[2016-10-11 13:18] LABS: Glucose,Whole Blood 171 mg/dL (75-99)
[2016-10-11] MEDS: DILTIAZEM ORAL 30 MG TAB PO SCH ×4 (13:20→22:01)
[2016-10-11 14:07] LABS: Glucose,Whole Blood 180 mg/dL (75-99)
[2016-10-11] MEDS ORDERED: HYDROcodone/APAP 5-325MG 1 EACH TAB PO PRN (14:31)
[2016-10-11] MEDS ORDERED: BISACODYL 10 MG SUPP RECTAL PRN (14:33)
[2016-10-11] MEDS ORDERED: MAGNESIUM HYDROXIDE 2,400 MG/10 ML CUP PO PRN (14:33)
[2016-10-11] MEDS ORDERED: IPRATROPIUM-ALBUTEROL 3 ML NEB INHALATION PRN (14:34)
[2016-10-11] MEDS ORDERED: IPRATROPIUM-ALBUTEROL 3 ML NEB INHALATION SCH (14:34)
[2016-10-11 15:06] LABS: Glucose,Whole Blood 180 mg/dL (75-99)
[2016-10-11 16:16] LABS: Glucose,Whole Blood 179 mg/dL (75-99)
--- NOTE | 2016-10-11 16:37 | P.PN ---
Subjective Interval history 10/11/16- patient is being seen examined and evaluated on the intensive care unit. Patient has postop day 1 after CABG 4 with cardiothoracic surgeon. Patient was successfully extubated approximately for 20 this morning. Currently the patient is resting up in bed on 6 L of supplemental oxygen. Patient appears somewhat lethargic. Currently he has a left chest tube as well as mediastinal chest tube. Currently he has been AV epicardial pacemaker connected to a generator with a VVI mode with backup rate of 60 BPM. He has a right radial art line, right IJ. Per the nursing staff he has an ineffective cough as well as an ineffective swallow, he had some difficulty with swallowing earlier they're going to reattempt a swallow evaluation again this afternoon. Patient does have some shortness of breath with exertion, is noted to have some lethargy. Objective - Vital Signs Vital signs: Vital Signs Temp 98.1 F 10/10/16 17:00 Pulse 87 10/11/16 16:00 Resp 14 10/11/16 16:00 BP 153/90 10/10/16 06:12 Pulse Ox 98 10/11/16 16:00 Intake & Output 10/10/16 10/11/16 10/11/16 18:59 06:59 18:59 Intake Total 400 2627.551 7855.193 Output Total 4690 1723 1105 Balance -4290 -422.132 121.193 Weight 87.2 kg 95.4 kg 95.4 kg Intake: IV 1159.0 769.0 ACETAMINOPHEN IV (For NPO 200 100 ) 1,000 mg In Empty Bag 1 bag @ 400 mls/hr IVPB Q6HR [facility] Rx#:[id number] CO/CI 133 103 Diltiazem 125 mg In 55 5 Sodium Chloride 0.9% 100 ml @ 5 MG/HR 5 mls/hr IV .Q24H [facility] Rx#:[id number] Lactated Ringers 1,000 ml 550 450 @ 20 mls/hr IV .Q24H [facility] Rx#:[id number] Milrinone-D5w Pmx 20 mg 104.5 9.5 In Dextrose/Water 1 100ml .bag @ 0.1 MCG/KG/MIN 2. 61 mls/hr IV .Q24H [facility] Rx #:[id number] Nitroglycerin-D5w Pmx 50 16.5 1.5 mg In Dextrose/Water 1 250ml.bag @ 5 MCG/MIN 1.5 mls/hr IV .Q24H [facility] Rx#: [id number] ceFAZolin 2,000 mg In 100 100 Sodium Chloride 0.9% 30 ml @ 999 mls/hr IVPB ONCE PRN Rx#:[id number] Intake, IV Titration 400 141.868 457.193 Amount ACETAMINOPHEN IV (For NPO 100 ) 1,000 mg In Empty Bag 1 bag @ 400 mls/hr IVPB Q6HR [facility] Rx#:[id number] Clevidipine Butyrate 25 0.533 28.4 mg In Empty Bag 1 bag @ 1 MG/HR 2 mls/hr IV .Q24H [facility] Rx#:[id number] Diltiazem 125 mg In 8.167 63.667 Sodium Chloride 0.9% 100 ml @ 5 MG/HR 5 mls/hr IV .Q24H [facility] Rx#:[id number] Insulin Regular 100 unit 13.863 40.407 In Sodium Chloride 0.9% 100 ml @ Per Protocol IV .Q0M [facility] Rx#:[id number] Lactated Ringers 1,000 ml 200 50 @ 20 mls/hr IV .Q24H [facility] Rx#:[id number] Milrinone-D5w Pmx 20 mg 106.544 In Dextrose/Water 1 100ml .bag @ 0.1 MCG/KG/MIN 2. 61 mls/hr IV .Q24H [facility] Rx #:[id number] Nitroglycerin-D5w Pmx 50 18.175 mg In Dextrose/Water 1 250ml.bag @ 5 MCG/MIN 1.5 mls/hr IV .Q24H PRN Rx#: [id number] Norepinephrin 4 mg-0.9% 41.0 Ns Pmx 4 mg In 250 ml @ Titrate IV .Q0M [facility] Rx#: [id number] Potassium Chloride 10 meq 200 In Water For Injection 1 100ml.bag @ 100 mls/hr IVPB Q1H [facility] Rx#: [id number] Propofol 1,000 mg In 100 16.751 ml @ Titrate IV .Q0M PRN Rx#:[id number] Propofol 1,000 mg In 100 11.554 ml @ Titrate IV .Q0M [facility] Rx#:[id number] ceFAZolin 2 gm In Sodium 100 Chloride 0.9% 100 ml @ 100 mls/hr IVPB Q8HR [facility] Rx#:[id number] Output: Chest Tube Drainage 250 378 290 Bilateral Mediastinal 60 328 210 Chest Tube Left Lateral 190 50 80 Chest Gastric Drainage 150 Drainage 110 60 40 left medial calf 110 60 40 Urine 1330 1135 775 Estimated Blood Loss 3000 Other: Voiding Method Indwelling Catheter Indwelling Catheter Indwelling Catheter # Voids 1 1 ABP, PAP, CO, CI - Last Documented Arterial Blood Pressure 120/58 Pulmonary Artery Pressure 30/16 Cardiac Output 5.3 Cardiac Index 2.6 - Exam GENERAL EXAM: Alert, disheveled, comfortable in no apparent distress. HEAD: Normocephalic. EYES: Normal reaction of pupils, equal size. NOSE: Clear with pink turbinates. THROAT: No erythema or exudates. NECK: No masses, no JVD. CHEST: No chest wall deformity. LUNGS: Lungs are noted to be coarse throughout with some fine expiratory wheezing noted. Bases diminished. CVS: S1 and S2 normal with no audible mumurs, regular rhythm. ABDOMEN: No hepatosplenomegaly, normal bowel sounds, no guarding or rigidity. EXTREMITIES: No edema noted, pedal pulses palpable. SKIN: No rashes CENTRAL NERVOUS SYSTEM: No focal deficits, tone is normal in all 4 extremities. - Labs CBC & Chem 7: 10/11/16 05:00 10/11/16 05:00 Labs: Abnormal Lab Results - Last 24 Hours (Table) 10/09/16 10/10/16 10/10/16 Range/Units 05:44 17:04 18:07 WBC (3.8-10.6) k/uL RBC (4.30-5.90) m/uL Hgb (13.0-17.5) gm/dL Hct (39.0-53.0) % Plt Count (150-450) k/uL Neutrophils # (1.3-7.7) k/uL Lymphocytes # (1.0-4.8) k/uL INR (<1.2) ABG Total CO2 (19-24) mmol/L ABG O2 Saturation (94-97) % BUN (9-20) mg/dL Glucose (74-99) mg/dL POC Glucose (mg/dL) 157 H 142 H (75-99) mg/dL Calcium (8.4-10.2) mg/dL Alkaline Phosphatase (38-126) U/L Total Protein (6.3-8.2) g/dL Albumin (3.5-5.0) g/dL Crossmatch See Detail 10/10/16 10/10/16 10/10/16 Range/Units 18:35 19:09 20:10 WBC 14.1 H (3.8-10.6) k/uL RBC 3.44 L (4.30-5.90) m/uL Hgb 10.3 L (13.0-17.5) gm/dL Hct 28.8 L (39.0-53.0) % Plt Count 125 L (150-450) k/uL Neutrophils # 11.8 H (1.3-7.7) k/uL Lymphocytes # (1.0-4.8) k/uL INR (<1.2) ABG Total CO2 (19-24) mmol/L ABG O2 Saturation (94-97) % BUN (9-20) mg/dL Glucose (74-99) mg/dL POC Glucose (mg/dL) 127 H 136 H (75-99) mg/dL Calcium (8.4-10.2) mg/dL Alkaline Phosphatase (38-126) U/L Total Protein (6.3-8.2) g/dL Albumin (3.5-5.0) g/dL Crossmatch 10/10/16 10/10/16 10/10/16 Range/Units 21:12 22:09 22:20 WBC (3.8-10.6) k/uL RBC (4.30-5.90) m/uL Hgb (13.0-17.5) gm/dL Hct (39.0-53.0) % Plt Count (150-450) k/uL Neutrophils # (1.3-7.7) k/uL Lymphocytes # (1.0-4.8) k/uL INR 1.2 H (<1.2) ABG Total CO2 (19-24) mmol/L ABG O2 Saturation (94-97) % BUN (9-20) mg/dL Glucose (74-99) mg/dL POC Glucose (mg/dL) 142 H 153 H (75-99) mg/dL Calcium (8.4-10.2) mg/dL Alkaline Phosphatase (38-126) U/L Total Protein (6.3-8.2) g/dL Albumin (3.5-5.0) g/dL Crossmatch 10/10/16 10/10/16 10/10/16 Range/Units 22:20 22:20 23:23 WBC 12.2 H (3.8-10.6) k/uL RBC 3.29 L (4.30-5.90) m/uL Hgb 9.8 L (13.0-17.5) gm/dL Hct 28.3 L (39.0-53.0) % Plt Count 118 L (150-450) k/uL Neutrophils # 9.9 H (1.3-7.7) k/uL Lymphocytes # (1.0-4.8) k/uL INR (<1.2) ABG Total CO2 (19-24) mmol/L ABG O2 Saturation (94-97) % BUN 23 H (9-20) mg/dL Glucose 139 H (74-99) mg/dL POC Glucose (mg/dL) 167 H (75-99) mg/dL Calcium 7.7 L (8.4-10.2) mg/dL Alkaline Phosphatase (38-126) U/L Total Protein (6.3-8.2) g/dL Albumin (3.5-5.0) g/dL Crossmatch 10/11/16 10/11/16 10/11/16 Range/Units 00:07 01:07 03:13 WBC (3.8-10.6) k/uL RBC (4.30-5.90) m/uL Hgb (13.0-17.5) gm/dL Hct (39.0-53.0) % Plt Count (150-450) k/uL Neutrophils # (1.3-7.7) k/uL Lymphocytes # (1.0-4.8) k/uL INR (<1.2) ABG Total CO2 (19-24) mmol/L ABG O2 Saturation (94-97) % BUN (9-20) mg/dL Glucose (74-99) mg/dL POC Glucose (mg/dL) 167 H 147 H 174 H (75-99) mg/dL Calcium (8.4-10.2) mg/dL Alkaline Phosphatase (38-126) U/L Total Protein (6.3-8.2) g/dL Albumin (3.5-5.0) g/dL Crossmatch 10/11/16 10/11/16 10/11/16 Range/Units 03:17 04:59 05:00 WBC (3.8-10.6) k/uL RBC 3.21 L (4.30-5.90) m/uL Hgb 9.5 L (13.0-17.5) gm/dL Hct 27.8 L (39.0-53.0) % Plt Count 97 L (150-450) k/uL Neutrophils # (1.3-7.7) k/uL Lymphocytes # 0.8 L (1.0-4.8) k/uL INR (<1.2) ABG Total CO2 26 H (19-24) mmol/L ABG O2 Saturation 98.0 H (94-97) % BUN (9-20) mg/dL Glucose (74-99) mg/dL POC Glucose (mg/dL) 165 H (75-99) mg/dL Calcium (8.4-10.2) mg/dL Alkaline Phosphatase (38-126) U/L Total Protein (6.3-8.2) g/dL Albumin (3.5-5.0) g/dL Crossmatch 10/11/16 10/11/16 10/11/16 Range/Units 05:00 06:20 07:17 WBC (3.8-10.6) k/uL RBC (4.30-5.90) m/uL Hgb (13.0-17.5) gm/dL Hct (39.0-53.0) % Plt Count (150-450) k/uL Neutrophils # (1.3-7.7) k/uL Lymphocytes # (1.0-4.8) k/uL INR (<1.2) ABG Total CO2 (19-24) mmol/L ABG O2 Saturation (94-97) % BUN 21 H (9-20) mg/dL Glucose 157 H (74-99) mg/dL POC Glucose (mg/dL) 161 H 167 H (75-99) mg/dL Calcium 7.9 L (8.4-10.2) mg/dL Alkaline Phosphatase 29 L (38-126) U/L Total Protein 4.2 L (6.3-8.2) g/dL Albumin 2.7 L (3.5-5.0) g/dL Crossmatch 10/11/16 10/11/16 10/11/16 Range/Units 08:01 08:01 09:01 WBC (3.8-10.6) k/uL RBC (4.30-5.90) m/uL Hgb (13.0-17.5) gm/dL Hct (39.0-53.0) % Plt Count (150-450) k/uL Neutrophils # (1.3-7.7) k/uL Lymphocytes # (1.0-4.8) k/uL INR (<1.2) ABG Total CO2 (19-24) mmol/L ABG O2 Saturation (94-97) % BUN (9-20) mg/dL Glucose (74-99) mg/dL POC Glucose (mg/dL) 167 H 167 H 162 H (75-99) mg/dL Calcium (8.4-10.2) mg/dL Alkaline Phosphatase (38-126) U/L Total Protein (6.3-8.2) g/dL Albumin (3.5-5.0) g/dL Crossmatch 10/11/16 10/11/16 10/11/16 Range/Units 10:10 11:08 12:24 WBC (3.8-10.6) k/uL RBC (4.30-5.90) m/uL Hgb (13.0-17.5) gm/dL Hct (39.0-53.0) % Plt Count (150-450) k/uL Neutrophils # (1.3-7.7) k/uL Lymphocytes # (1.0-4.8) k/uL INR (<1.2) ABG Total CO2 (19-24) mmol/L ABG O2 Saturation (94-97) % BUN (9-20) mg/dL Glucose (74-99) mg/dL POC Glucose (mg/dL) 181 H 172 H 174 H (75-99) mg/dL Calcium (8.4-10.2) mg/dL Alkaline Phosphatase (38-126) U/L Total Protein (6.3-8.2) g/dL Albumin (3.5-5.0) g/dL Crossmatch 10/11/16 10/11/16 10/11/16 Range/Units 13:05 14:05 15:05 WBC (3.8-10.6) k/uL RBC (4.30-5.90) m/uL Hgb (13.0-17.5) gm/dL Hct (39.0-53.0) % Plt Count (150-450) k/uL Neutrophils # (1.3-7.7) k/uL Lymphocytes # (1.0-4.8) k/uL INR (<1.2) ABG Total CO2 (19-24) mmol/L ABG O2 Saturation (94-97) % BUN (9-20) mg/dL Glucose (74-99) mg/dL POC Glucose (mg/dL) 171 H 180 H 180 H (75-99) mg/dL Calcium (8.4-10.2) mg/dL Alkaline Phosphatase (38-126) U/L Total Protein (6.3-8.2) g/dL Albumin (3.5-5.0) g/dL Crossmatch 10/11/16 Range/Units 16:14 WBC (3.8-10.6) k/uL RBC (4.30-5.90) m/uL Hgb (13.0-17.5) gm/dL Hct (39.0-53.0) % Plt Count (150-450) k/uL Neutrophils # (1.3-7.7) k/uL Lymphocytes # (1.0-4.8) k/uL INR (<1.2) ABG Total CO2 (19-24) mmol/L ABG O2 Saturation (94-97) % BUN (9-20) mg/dL Glucose (74-99) mg/dL POC Glucose (mg/dL) 179 H (75-99) mg/dL Calcium (8.4-10.2) mg/dL Alkaline Phosphatase (38-126) U/L Total Protein (6.3-8.2) g/dL Albumin (3.5-5.0) g/dL Crossmatch Assessment and Plan Plan: Assessment Postop day 1, CABG 4 Acute OR and diffuse coronary artery disease Hypertension hypertensive cardiovascular disease Dyslipidemia 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 Continue with pulmonary hygiene, coughing and deep breathing exercises, and supportive care. Encourage incentive spirometer. Supplemental oxygen to maintain oxygen saturations of 92% or better. Continue nebulizer treatments. GI and DVT prophylaxis. We will continue to monitor labs/ results and adjust treatment as necessary. Encourage increase in activity as tolerated. Further recommendations pending. I performed an examination of the patient and discussed their management with the nurse practitioner. I have reviewed the nurse practitioner's note and agree with the documented findings and plan of care.
[2016-10-11 17:57] LABS: ABG PCO2 35 mmHg (35-45); ABG PH 7.48 (7.35-7.45); ABG PO2 74 mmHg (83-108)
[2016-10-11 17:58] LABS: ABG Base Excess 2.3 mmol/L; ABG HCO3 26 mmol/L (21-25); ABG TCO2 27 mmol/L (19-24)
--- NOTE | 2016-10-11 18:05 | P.PN ---
Subjective Patient has been extubated. He is sleeping at this time looks comfortable blood pressure and heart rate in the normal range Vitals are stable heart rates are normal rhythm is regular Labs are reviewed hemoglobin 9.5 electrolytes normal renal function normal On examination pulse rate in the 90s, breathing is nonlabored blood pressure 120 /58 mmHg PA pressure 30/60 mmHg Heart sounds are soft conductive sounds are audible from the chest tube breath sounds are reduced bilaterally Abdomen soft nontender Extremities are warm no edema Impression Multivessel coronary artery disease status post coronary artery bypass grafting Plan Continue aspirin, atorvastatin, Plavix, diltiazem and low-dose beta blockers Continue postop ICU care Objective - Vital Signs Vital signs: Vital Signs Temp 98.1 F 10/10/16 17:00 Pulse 90 10/11/16 17:23 Resp 14 10/11/16 16:00 BP 153/90 10/10/16 06:12 Pulse Ox 96 10/11/16 17:11 Intake & Output 10/10/16 10/11/16 10/11/16 18:59 06:59 18:59 Intake Total 400 1563.946 4215.193 Output Total 4690 1723 1155 Balance -4290 -422.132 71.193 Weight 87.2 kg 95.4 kg 95.4 kg Intake: IV 1159.0 769.0 ACETAMINOPHEN IV (For NPO 200 100 ) 1,000 mg In Empty Bag 1 bag @ 400 mls/hr IVPB Q6HR [facility] Rx#:[id number] CO/CI 133 103 Diltiazem 125 mg In 55 5 Sodium Chloride 0.9% 100 ml @ 5 MG/HR 5 mls/hr IV .Q24H [facility] Rx#:[id number] Lactated Ringers 1,000 ml 550 450 @ 20 mls/hr IV .Q24H [facility] Rx#:[id number] Milrinone-D5w Pmx 20 mg 104.5 9.5 In Dextrose/Water 1 100ml .bag @ 0.1 MCG/KG/MIN 2. 61 mls/hr IV .Q24H [facility] Rx #:[id number] Nitroglycerin-D5w Pmx 50 16.5 1.5 mg In Dextrose/Water 1 250ml.bag @ 5 MCG/MIN 1.5 mls/hr IV .Q24H [facility] Rx#: [id number] ceFAZolin 2,000 mg In 100 100 Sodium Chloride 0.9% 30 ml @ 999 mls/hr IVPB ONCE PRN Rx#:[id number] Intake, IV Titration 400 141.868 457.193 Amount ACETAMINOPHEN IV (For NPO 100 ) 1,000 mg In Empty Bag 1 bag @ 400 mls/hr IVPB Q6HR [facility] Rx#:[id number] Clevidipine Butyrate 25 0.533 28.4 mg In Empty Bag 1 bag @ 1 MG/HR 2 mls/hr IV .Q24H [facility] Rx#:[id number] Diltiazem 125 mg In 8.167 63.667 Sodium Chloride 0.9% 100 ml @ 5 MG/HR 5 mls/hr IV .Q24H [facility] Rx#:[id number] Insulin Regular 100 unit 13.863 40.407 In Sodium Chloride 0.9% 100 ml @ Per Protocol IV .Q0M [facility] Rx#:[id number] Lactated Ringers 1,000 ml 200 50 @ 20 mls/hr IV .Q24H [facility] Rx#:[id number] Milrinone-D5w Pmx 20 mg 106.544 In Dextrose/Water 1 100ml .bag @ 0.1 MCG/KG/MIN 2. 61 mls/hr IV .Q24H [facility] Rx #:[id number] Nitroglycerin-D5w Pmx 50 18.175 mg In Dextrose/Water 1 250ml.bag @ 5 MCG/MIN 1.5 mls/hr IV .Q24H [facility]N Rx#: [id number] Norepinephrin 4 mg-0.9% 41.0 Ns Pmx 4 mg In 250 ml @ Titrate IV .Q0M [facility] Rx#: [id number] Potassium Chloride 10 meq 200 In Water For Injection 1 100ml.bag @ 100 mls/hr IVPB Q1H [facility] Rx#: [id number] Propofol 1,000 mg In 100 16.751 ml @ Titrate IV .Q0M PRN Rx#:[id number] Propofol 1,000 mg In 100 11.554 ml @ Titrate IV .Q0M [facility] Rx#:[id number] ceFAZolin 2 gm In Sodium 100 Chloride 0.9% 100 ml @ 100 mls/hr IVPB Q8HR [facility] Rx#:[id number] Output: Chest Tube Drainage 250 378 290 Bilateral Mediastinal 60 328 210 Chest Tube Left Lateral 190 50 80 Chest Gastric Drainage 150 Drainage 110 60 40 left medial calf 110 60 40 Urine 1330 1135 825 Estimated Blood Loss 3000 Other: Voiding Method Indwelling Catheter Indwelling Catheter Indwelling Catheter # Voids 1 1 ABP, PAP, CO, CI - Last Documented Arterial Blood Pressure 120/58 Pulmonary Artery Pressure 30/16 Cardiac Output 5.3 Cardiac Index 2.6 - Labs CBC & Chem 7: 10/11/16 05:00 10/11/16 05:00 Labs: Abnormal Lab Results - Last 24 Hours (Table) 10/09/16 10/10/16 10/10/16 Range/Units 05:44 18:07 18:35 WBC 14.1 H (3.8-10.6) k/uL RBC 3.44 L (4.30-5.90) m/uL Hgb 10.3 L (13.0-17.5) gm/dL Hct 28.8 L (39.0-53.0) % Plt Count 125 L (150-450) k/uL Neutrophils # 11.8 H (1.3-7.7) k/uL Lymphocytes # (1.0-4.8) k/uL INR (<1.2) ABG pH (7.35-7.45) ABG pO2 (83-108) mmHg ABG HCO3 (21-25) mmol/L ABG Total CO2 (19-24) mmol/L ABG O2 Saturation (94-97) % BUN (9-20) mg/dL Glucose (74-99) mg/dL POC Glucose (mg/dL) 142 H (75-99) mg/dL Calcium (8.4-10.2) mg/dL Alkaline Phosphatase (38-126) U/L Total Protein (6.3-8.2) g/dL Albumin (3.5-5.0) g/dL Crossmatch See Detail 10/10/16 10/10/16 10/10/16 Range/Units 19:09 20:10 21:12 WBC (3.8-10.6) k/uL RBC (4.30-5.90) m/uL Hgb (13.0-17.5) gm/dL Hct (39.0-53.0) % Plt Count (150-450) k/uL Neutrophils # (1.3-7.7) k/uL Lymphocytes # (1.0-4.8) k/uL INR (<1.2) ABG pH (7.35-7.45) ABG pO2 (83-108) mmHg ABG HCO3 (21-25) mmol/L ABG Total CO2 (19-24) mmol/L ABG O2 Saturation (94-97) % BUN (9-20) mg/dL Glucose (74-99) mg/dL POC Glucose (mg/dL) 127 H 136 H 142 H (75-99) mg/dL Calcium (8.4-10.2) mg/dL Alkaline Phosphatase (38-126) U/L Total Protein (6.3-8.2) g/dL Albumin (3.5-5.0) g/dL Crossmatch 10/10/16 10/10/16 10/10/16 Range/Units 22:09 22:20 22:20 WBC (3.8-10.6) k/uL RBC (4.30-5.90) m/uL Hgb (13.0-17.5) gm/dL Hct (39.0-53.0) % Plt Count (150-450) k/uL Neutrophils # (1.3-7.7) k/uL Lymphocytes # (1.0-4.8) k/uL INR 1.2 H (<1.2) ABG pH (7.35-7.45) ABG pO2 (83-108) mmHg ABG HCO3 (21-25) mmol/L ABG Total CO2 (19-24) mmol/L ABG O2 Saturation (94-97) % BUN 23 H (9-20) mg/dL Glucose 139 H (74-99) mg/dL POC Glucose (mg/dL) 153 H (75-99) mg/dL Calcium 7.7 L (8.4-10.2) mg/dL Alkaline Phosphatase (38-126) U/L Total Protein (6.3-8.2) g/dL Albumin (3.5-5.0) g/dL Crossmatch 10/10/16 10/10/16 10/11/16 Range/Units 22:20 23:23 00:07 WBC 12.2 H (3.8-10.6) k/uL RBC 3.29 L (4.30-5.90) m/uL Hgb 9.8 L (13.0-17.5) gm/dL Hct 28.3 L (39.0-53.0) % Plt Count 118 L (150-450) k/uL Neutrophils # 9.9 H (1.3-7.7) k/uL Lymphocytes # (1.0-4.8) k/uL INR (<1.2) ABG pH (7.35-7.45) ABG pO2 (83-108) mmHg ABG HCO3 (21-25) mmol/L ABG Total CO2 (19-24) mmol/L ABG O2 Saturation (94-97) % BUN (9-20) mg/dL Glucose (74-99) mg/dL POC Glucose (mg/dL) 167 H 167 H (75-99) mg/dL Calcium (8.4-10.2) mg/dL Alkaline Phosphatase (38-126) U/L Total Protein (6.3-8.2) g/dL Albumin (3.5-5.0) g/dL Crossmatch 10/11/16 10/11/16 10/11/16 Range/Units 01:07 03:13 03:17 WBC (3.8-10.6) k/uL RBC (4.30-5.90) m/uL Hgb (13.0-17.5) gm/dL Hct (39.0-53.0) % Plt Count (150-450) k/uL Neutrophils # (1.3-7.7) k/uL Lymphocytes # (1.0-4.8) k/uL INR (<1.2) ABG pH (7.35-7.45) ABG pO2 (83-108) mmHg ABG HCO3 (21-25) mmol/L ABG Total CO2 26 H (19-24) mmol/L ABG O2 Saturation 98.0 H (94-97) % BUN (9-20) mg/dL Glucose (74-99) mg/dL POC Glucose (mg/dL) 147 H 174 H (75-99) mg/dL Calcium (8.4-10.2) mg/dL Alkaline Phosphatase (38-126) U/L Total Protein (6.3-8.2) g/dL Albumin (3.5-5.0) g/dL Crossmatch 10/11/16 10/11/16 10/11/16 Range/Units 04:59 05:00 05:00 WBC (3.8-10.6) k/uL RBC 3.21 L (4.30-5.90) m/uL Hgb 9.5 L (13.0-17.5) gm/dL Hct 27.8 L (39.0-53.0) % Plt Count 97 L (150-450) k/uL Neutrophils # (1.3-7.7) k/uL Lymphocytes # 0.8 L (1.0-4.8) k/uL INR (<1.2) ABG pH (7.35-7.45) ABG pO2 (83-108) mmHg ABG HCO3 (21-25) mmol/L ABG Total CO2 (19-24) mmol/L ABG O2 Saturation (94-97) % BUN 21 H (9-20) mg/dL Glucose 157 H (74-99) mg/dL POC Glucose (mg/dL) 165 H (75-99) mg/dL Calcium 7.9 L (8.4-10.2) mg/dL Alkaline Phosphatase 29 L (38-126) U/L Total Protein 4.2 L (6.3-8.2) g/dL Albumin 2.7 L (3.5-5.0) g/dL Crossmatch 10/11/16 10/11/16 10/11/16 Range/Units 06:20 07:17 08:01 WBC (3.8-10.6) k/uL RBC (4.30-5.90) m/uL Hgb (13.0-17.5) gm/dL Hct (39.0-53.0) % Plt Count (150-450) k/uL Neutrophils # (1.3-7.7) k/uL Lymphocytes # (1.0-4.8) k/uL INR (<1.2) ABG pH (7.35-7.45) ABG pO2 (83-108) mmHg ABG HCO3 (21-25) mmol/L ABG Total CO2 (19-24) mmol/L ABG O2 Saturation (94-97) % BUN (9-20) mg/dL Glucose (74-99) mg/dL POC Glucose (mg/dL) 161 H 167 H 167 H (75-99) mg/dL Calcium (8.4-10.2) mg/dL Alkaline Phosphatase (38-126) U/L Total Protein (6.3-8.2) g/dL Albumin (3.5-5.0) g/dL Crossmatch 10/11/16 10/11/16 10/11/16 Range/Units 08:01 09:01 10:10 WBC (3.8-10.6) k/uL RBC (4.30-5.90) m/uL Hgb (13.0-17.5) gm/dL Hct (39.0-53.0) % Plt Count (150-450) k/uL Neutrophils # (1.3-7.7) k/uL Lymphocytes # (1.0-4.8) k/uL INR (<1.2) ABG pH (7.35-7.45) ABG pO2 (83-108) mmHg ABG HCO3 (21-25) mmol/L ABG Total CO2 (19-24) mmol/L ABG O2 Saturation (94-97) % BUN (9-20) mg/dL Glucose (74-99) mg/dL POC Glucose (mg/dL) 167 H 162 H 181 H (75-99) mg/dL Calcium (8.4-10.2) mg/dL Alkaline Phosphatase (38-126) U/L Total Protein (6.3-8.2) g/dL Albumin (3.5-5.0) g/dL Crossmatch 10/11/16 10/11/16 10/11/16 Range/Units 11:08 12:24 13:05 WBC (3.8-10.6) k/uL RBC (4.30-5.90) m/uL Hgb (13.0-17.5) gm/dL Hct (39.0-53.0) % Plt Count (150-450) k/uL Neutrophils # (1.3-7.7) k/uL Lymphocytes # (1.0-4.8) k/uL INR (<1.2) ABG pH (7.35-7.45) ABG pO2 (83-108) mmHg ABG HCO3 (21-25) mmol/L ABG Total CO2 (19-24) mmol/L ABG O2 Saturation (94-97) % BUN (9-20) mg/dL Glucose (74-99) mg/dL POC Glucose (mg/dL) 172 H 174 H 171 H (75-99) mg/dL Calcium (8.4-10.2) mg/dL Alkaline Phosphatase (38-126) U/L Total Protein (6.3-8.2) g/dL Albumin (3.5-5.0) g/dL Crossmatch 10/11/16 10/11/16 10/11/16 Range/Units 14:05 15:05 16:14 WBC (3.8-10.6) k/uL RBC (4.30-5.90) m/uL Hgb (13.0-17.5) gm/dL Hct (39.0-53.0) % Plt Count (150-450) k/uL Neutrophils # (1.3-7.7) k/uL Lymphocytes # (1.0-4.8) k/uL INR (<1.2) ABG pH (7.35-7.45) ABG pO2 (83-108) mmHg ABG HCO3 (21-25) mmol/L ABG Total CO2 (19-24) mmol/L ABG O2 Saturation (94-97) % BUN (9-20) mg/dL Glucose (74-99) mg/dL POC Glucose (mg/dL) 180 H 180 H 179 H (75-99) mg/dL Calcium (8.4-10.2) mg/dL Alkaline Phosphatase (38-126) U/L Total Protein (6.3-8.2) g/dL Albumin (3.5-5.0) g/dL Crossmatch 10/11/16 Range/Units 17:50 WBC (3.8-10.6) k/uL RBC (4.30-5.90) m/uL Hgb (13.0-17.5) gm/dL Hct (39.0-53.0) % Plt Count (150-450) k/uL Neutrophils # (1.3-7.7) k/uL Lymphocytes # (1.0-4.8) k/uL INR (<1.2) ABG pH 7.48 H (7.35-7.45) ABG pO2 74 L (83-108) mmHg ABG HCO3 26 H (21-25) mmol/L ABG Total CO2 27 H (19-24) mmol/L ABG O2 Saturation (94-97) % BUN (9-20) mg/dL Glucose (74-99) mg/dL POC Glucose (mg/dL) (75-99) mg/dL Calcium (8.4-10.2) mg/dL Alkaline Phosphatase (38-126) U/L Total Protein (6.3-8.2) g/dL Albumin (3.5-5.0) g/dL Crossmatch
--- NOTE | 2016-10-11 18:27 | CT ---
EXAMINATION TYPE: CT brain wo con DATE OF EXAM: 10/11/2016 COMPARISON: NONE HISTORY: Post op mental status changes CT DLP: 1159 mGycm. Automated Exposure Control for Dose Reduction was Utilized. TECHNIQUE: Multiple axial sections were obtained of the brain with no contrast. FINDINGS: Ventricles of normal size. There is no mass effect nor midline shift. There is no sign of intracrania l hemorrhage. Exam is limited slightly by motion. There is small areas of hypodensity in the perivent ricular white matter. IMPRESSION: There is evidence of some chronic small vessel ischemia or demyelinating disease in this relatively young patient. No acute intracranial abnormality.
[2016-10-11 18:53] LABS: Glucose,Whole Blood 164 mg/dL (75-99)
[2016-10-11] MEDS: LACTATED RINGERS 1,000 ML IV SCH (18:53)
[2016-10-11 20:10] LABS: Glucose,Whole Blood 167 mg/dL (75-99)
[2016-10-11] MEDS: SENNOSIDES-DOCUSATE SODIUM 1 EACH TAB PO SCH (20:36)
[2016-10-11 22:05] LABS: Glucose,Whole Blood 152 mg/dL (75-99)
[2016-10-11] MEDS: MORPHINE SULFATE 2 MG/ML SYRINGE IVP PRN (22:59)
[2016-10-12 00:29] LABS: Glucose,Whole Blood 147 mg/dL (75-99)
[2016-10-12] MEDS: HEPARIN SODIUM,PORCINE 5,000 UNIT/ML 1 ML VIAL SQ SCH ×4 (01:08→22:44)
[2016-10-12] MEDS: MORPHINE SULFATE 2 MG/ML SYRINGE IVP PRN ×5 (02:03→16:52)
[2016-10-12 02:35] LABS: Glucose,Whole Blood 169 mg/dL (75-99)
[2016-10-12 04:47] LABS: Glucose,Whole Blood 178 mg/dL (75-99)
[2016-10-12 05:02] LABS: Basophils % (A) 0 %; CH 30.7; CHCM 35.8; Eosinophils # (A) 0.1 k/uL (0-0.7); Eosinophils % (A) 1 %; HDW 2.96; HGB 9.5 gm/dL (13.0-17.5); Luc # (Auto) 0.31; Luc % (Auto) 2; Lymphocytes # (A) 1.1 k/uL (1.0-4.8); Lymphocytes % (A) 9 %; MCH 30.3 pg (25.0-35.0); MCHC 35.1 g/dL (31.0-37.0); MCV 86.3 fL (80.0-100.0); Mean Platelet Volume 8.3; Monocytes # (A) 1.2 k/uL (0-1.0); Monocytes % (A) 9 %; Neutrophils # (A) 10.3 k/uL (1.3-7.7); Neutrophils % (A) 79 %; RBC 3.13 m/uL (4.30-5.90); RDW 14.1 % (11.5-15.5); WBC (Perox) 13.45
[2016-10-12 05:14] LABS: Ionized Calcium 4.9 mg/dL (4.5-5.3)
[2016-10-12 05:19] LABS: INR 1.2 (<1.2); Prothrombin Time 11.9 sec (9.0-12.0)
[2016-10-12 05:20] LABS: ALT 41 U/L (21-72); AST 44 U/L (17-59); Alkaline Phosphatase 40 U/L (38-126); Anion Gap 8 mmol/L; Blood Urea Nitrogen 18 mg/dL (9-20); Calcium 8.5 mg/dL (8.4-10.2); Carbon Dioxide 25 mmol/L (22-30); Chloride 106 mmol/L (98-107); Glucose 169 mg/dL (74-99); Magnesium 2.1 mg/dL (1.6-2.3); Non-African American GFR(MDRD) >60 (>60 ml/min/1.73 sqM); Potassium 3.7 mmol/L (3.5-5.1); Sodium 139 mmol/L (137-145); Total Bilirubin 0.8 mg/dL (0.2-1.3); Total Protein 4.6 g/dL (6.3-8.2)
[2016-10-12] MEDS: CLEVIDIPINE BUTYRATE 25 MG in EMPTY BAG 1 BAG IV SCH ×4 (05:58→14:39)
[2016-10-12 06:03] LABS: Glucose,Whole Blood 187 mg/dL (75-99)
--- NOTE | 2016-10-12 07:27 | XR ---
EXAMINATION TYPE: XR chest 1V portable DATE OF EXAM: 10/12/2016 COMPARISON: 10/11/2016 HISTORY: Postoperative cardiac surgery TECHNIQUE: Single frontal view of the chest is obtained. FINDINGS: Left thoracostomy tube has been retracted in the interim overlying the left ventricular laurence rder with no left residual pneumothorax seen. Geneva-Julián catheter and mediastinal drains are unchanged as well as postoperative changes of the chest. New small right apical pneumothorax is appreciated wi th approximately 1.6 cm of pleural separation. Scattered basilar opacities likely represent subsegmen deborah atelectasis. Cardiomediastinal silhouette is stable. IMPRESSION: 1. New small right apical pneumothorax with 1.6 cm pleural separation. 2. Retraction of the left thoracostomy tube with no left residual pneumothorax. 3. Multifocal basilar opacities, likely atelectasis. 4. Unchanged mediastinal drains and Geneva-Julián catheter. Findings were discussed with the nurse Bernard by Dr. Barlow at 7:30 AM on 10/12/2016. A Red message has been communicated to Carrie Choe via the [facility] system on 10/12/2016 7:21 AM, Message ID [id number].
[2016-10-12 08:23] LABS: Glucose,Whole Blood 193 mg/dL (75-99)
[2016-10-12] MEDS: IPRATROPIUM-ALBUTEROL 3 ML NEB INHALATION SCH ×4 (08:40→19:42)
[2016-10-12] MEDS: DILTIAZEM ORAL 30 MG TAB PO SCH ×5 (08:43→21:00)
[2016-10-12] MEDS: POTASSIUM CHLORIDE 10 MEQ in WATER FOR INJECTION 1 100ML.BAG IVPB SCH ×2 (08:43→10:21)
[2016-10-12] MEDS: METOPROLOL TARTRATE 12.5 MG TAB PO SCH (08:43)
[2016-10-12] MEDS: PANTOPRAZOLE 40 MG TABLET PO SCH ×2 (08:44→13:33)
[2016-10-12] MEDS: CLOPIDOGREL 75 MG TAB PO SCH ×2 (08:44→13:33)
[2016-10-12] MEDS: ASPIRIN 325 MG TAB PO SCH ×2 (08:44→13:33)
[2016-10-12] MEDS: ATORVASTATIN 40 MG TAB PO SCH ×2 (08:44→13:33)
[2016-10-12] MEDS: INSULIN REGULAR 100 UNIT in SODIUM CHLORIDE 0.9% 100 ML IV SCH (08:45)
[2016-10-12] MEDS ORDERED: DILTIAZEM CD 120 MG CAP.ER.24H PO SCH (09:00)
[2016-10-12 09:02] LABS: ABG Base Excess 0.5 mmol/L; ABG HCO3 24 mmol/L (21-25); ABG PCO2 39 mmHg (35-45); ABG PH 7.41 (7.35-7.45); ABG PO2 319 mmHg (83-108); ABG TCO2 26 mmol/L (19-24)
[2016-10-12 09:03] LABS: ABG Base Excess -1.4 mmol/L; ABG HCO3 24 mmol/L (21-25); ABG PCO2 46 mmHg (35-45); ABG PH 7.34 (7.35-7.45); ABG PO2 99 mmHg (83-108); ABG TCO2 26 mmol/L (19-24)
[2016-10-12 09:03] LABS: ABG Hematocrit 42 % (34.0-46.0); ABG Oxygen Saturation 99.9 % (94-97)
[2016-10-12 09:04] LABS: ABG Hematocrit 39 % (34.0-46.0); ABG Oxygen Saturation 97.2 % (94-97)
[2016-10-12 09:04] LABS: ABG Base Excess -0.8 mmol/L; ABG HCO3 23 mmol/L (21-25); ABG Hematocrit 35 % (34.0-46.0); ABG Oxygen Saturation 99.7 % (94-97); ABG PCO2 35 mmHg (35-45); ABG PH 7.43 (7.35-7.45); ABG PO2 183 mmHg (83-108); ABG TCO2 24 mmol/L (19-24)
[2016-10-12 09:05] LABS: ABG Base Excess -0.2 mmol/L; ABG HCO3 26 mmol/L (21-25); ABG Oxygen Saturation 99.8 % (94-97); ABG PCO2 54 mmHg (35-45); ABG PO2 252 mmHg (83-108); ABG TCO2 28 mmol/L (19-24)
[2016-10-12 09:06] LABS: ABG Hematocrit 29 % (34.0-46.0)
[2016-10-12 09:06] LABS: ABG Base Excess 0.3 mmol/L; ABG HCO3 25 mmol/L (21-25); ABG Oxygen Saturation 99.6 % (94-97); ABG PCO2 42 mmHg (35-45); ABG PH 7.39 (7.35-7.45); ABG PO2 187 mmHg (83-108); ABG TCO2 26 mmol/L (19-24)
[2016-10-12 09:07] LABS: ABG Hematocrit 30 % (34.0-46.0)
[2016-10-12 09:18] LABS: Glucose,Whole Blood 187 mg/dL (75-99)
[2016-10-12] MEDS ORDERED: METOPROLOL TARTRATE 12.5 MG TAB PO ONE (09:30)
--- NOTE | 2016-10-12 10:09 | P.PN ---
<Kaz Avila - Last Filed: 10/12/16 10:05> Subjective Principal diagnosis: Severe triple vessel coronary artery disease, Non-STEMI, hypertension, dyslipidemia, diabetes mellitus type II poorly controlled with an admission hemoglobin A1c of 10.4, severe COPD, and GERD, CHF, bipolar disorder, remote history of nicotine dependence, drug addiction and alcohol abuse. Daily #2 urgent coronary artery bypass graft surgery with the left internal mammary artery to the left anterior descending artery, left radial artery to the ramus artery, reverse saphenous vein graft to the diagonal artery, reverse saphenous vein graft to posterior descending artery, left lower extremity endoscopic vein harvesting, left radial artery endoscopic harvesting, intraoperative transesophageal echocardiogram and epi-aortic scanning. Patient's currently sitting up to the bedside chair. He is moving his right arm and leg and not moving his left side with verbal stimuli. He attempts to withdrawal from noxious stimuli to his left side. He opens his eyes with verbal stimuli and is slow to respond verbally. No acute distress. His pupils are equal, round and reactive to light. Objective - Vital Signs Vital signs: Vital Signs Temp 98.1 F 10/10/16 17:00 Pulse 99 10/12/16 08:00 Resp 23 10/12/16 08:00 BP 116/64 10/12/16 08:00 Pulse Ox 94 L 10/12/16 08:00 Intake & Output 10/11/16 10/12/16 10/12/16 18:59 06:59 18:59 Intake Total 1297.938 457.263 Output Total 1215 1360 Balance 82.938 -902.737 Weight 95.4 kg Intake: IV 799.0 360 ACETAMINOPHEN IV (For NPO 100 ) 1,000 mg In Empty Bag 1 bag @ 400 mls/hr IVPB Q6HR [facility] Rx#:[id number] CO/CI 103 30 Diltiazem 125 mg In 5 Sodium Chloride 0.9% 100 ml @ 5 MG/HR 5 mls/hr IV .Q24H [facility] Rx#:[id number] Lactated Ringers 1,000 ml 480 330 @ 20 mls/hr IV .Q24H [facility] Rx#:[id number] Milrinone-D5w Pmx 20 mg 9.5 In Dextrose/Water 1 100ml .bag @ 0.1 MCG/KG/MIN 2. 61 mls/hr IV .Q24H [facility] Rx #:[id number] Nitroglycerin-D5w Pmx 50 1.5 mg In Dextrose/Water 1 250ml.bag @ 5 MCG/MIN 1.5 mls/hr IV .Q24H [facility] Rx#: [id number] ceFAZolin 2,000 mg In 100 Sodium Chloride 0.9% 30 ml @ 999 mls/hr IVPB ONCE PRN Rx#:[id number] Intake, IV Titration 498.938 97.263 Amount Clevidipine Butyrate 25 28.4 50.533 mg In Empty Bag 1 bag @ 1 MG/HR 2 mls/hr IV .Q24H [facility] Rx#:[id number] Diltiazem 125 mg In 63.667 Sodium Chloride 0.9% 100 ml @ 5 MG/HR 5 mls/hr IV .Q24H [facility] Rx#:[id number] Insulin Regular 100 unit 40.407 46.730 In Sodium Chloride 0.9% 100 ml @ Per Protocol IV .Q0M [facility] Rx#:[id number] Lactated Ringers 1,000 ml 30 @ 20 mls/hr IV .Q24H [facility] Rx#:[id number] Milrinone-D5w Pmx 20 mg 118.289 In Dextrose/Water 1 100ml .bag @ 0.1 MCG/KG/MIN 2. 61 mls/hr IV .Q24H [facility] Rx #:[id number] Nitroglycerin-D5w Pmx 50 18.175 mg In Dextrose/Water 1 250ml.bag @ 5 MCG/MIN 1.5 mls/hr IV .Q24H PRN Rx#: [id number] Potassium Chloride 10 meq 200 In Water For Injection 1 100ml.bag @ 100 mls/hr IVPB Q1H [facility] Rx#: [id number] Output: Chest Tube Drainage 290 430 Bilateral Mediastinal 210 310 Chest Tube Left Lateral 80 120 Chest Drainage 60 20 left medial calf 60 20 Urine 865 910 Other: Voiding Method Indwelling Catheter Indwelling Catheter # Voids 1 ABP, PAP, CO, CI - Last Documented Arterial Blood Pressure 129/57 Pulmonary Artery Pressure 22/8 Cardiac Output 9.2 Cardiac Index 4.5 - Constitutional General appearance: Present: cooperative (Slow to respond to verbal stimuli but cooperative.), no acute distress, obese - EENT Eyes: Present: PERRLA, normal appearance - Neck Details: No JVD, no lymphadenopathy. Right IJ Cordis in place with [place]-Julián catheter. Most recent cardiac output 9.2, cardiac index 4.5, PA pressures 25/11, CVP 6. - Respiratory Details: Lung sounds are essentially clear throughout, diminished to his bilateral bases. Respirations are symmetrical and nonlabored. He is currently on a nonrebreather mask 100% FiO2 and his oxygen saturations are 96%. He is not tolerating his incentive spirometry at this time. Mediastinal chest tubes without air leak, draining thin serosanguineous drainage. Remains to low continuous wall suction -20 cm. 170 mL output in the last 8 hours, 500 mL output in the last 24 hours. Left pleural chest tube without air leak, draining thin serosanguineous drainage. It remains to low continuous wall suction at -20 cm area 50 mL output in the last 8 hours, 300 mL output in the last 24 hours. Weak cough. - Cardiovascular Details: Regular rhythm and tachycardic rate. S1 and S2 present, very loud pericardial rub present. Sternum is stable. Heart hugger in place although patient is unable to demonstrate appropriate use. AV epicardial pacemaker wires present and connected to backup generator, VVI mode with a backup rate of 60 BPM. No edema present. Knee-high NNEKA hose and sequential compression devices in place to his bilateral lower extremities. Right radial arterial line site clean dry and intact. - Gastrointestinal Gastrointestinal Comment(s): Abdomen soft, nontender and nondistended. Hypoactive bowel sounds present in all 4 abdominal quadrants. - Genitourinary Genitourinary Comment(s): Clear yellow urine. Rosario catheter for accurate I&O. Urine output about 70 mL per hour. - Integumentary Integumentary Comment(s): Midline sternal incision clean dry and well approximated. Dermabond dressing in place. Left leg EVH site clean dry and well approximated. Dermabond dressing clean dry and intact. Left arm EVH radial artery harvest sites clean dry and well approximated, Dermabond dressing clean dry and intact. Ecchymotic area to his left forearm. Ecchymotic area to his right forearm. JOSE drain in place draining thin serosanguineous drainage. 30 mL output in the last 8 hours. - Neurologic Neurologic Comment(s): Left-sided weakness minimal movement to his left foot and left hand. moving his arm and leg to his right side. Responding slowly verbally. No facial droop. - Musculoskeletal Musculoskeletal: Present: left sided weakness - Psychiatric Psychiatric Comment(s): He is unable to state his name, did state morning when prompted. He is hard to arouse and prompt open his eyes. He is mumbling. - Allied health notes Allied health notes reviewed: nursing - Labs CBC & Chem 7: 10/12/16 04:45 10/12/16 04:45 Labs: Abnormal Lab Results - Last 24 Hours (Table) 10/11/16 10/11/16 10/11/16 Range/Units 09:01 10:10 11:08 WBC (3.8-10.6) k/uL RBC (4.30-5.90) m/uL Hgb (13.0-17.5) gm/dL Hct (39.0-53.0) % Plt Count (150-450) k/uL Neutrophils # (1.3-7.7) k/uL Monocytes # (0-1.0) k/uL INR (<1.2) ABG pH (7.35-7.45) ABG pO2 (83-108) mmHg ABG HCO3 (21-25) mmol/L ABG Total CO2 (19-24) mmol/L Creatinine (0.66-1.25) mg/dL Glucose (74-99) mg/dL POC Glucose (mg/dL) 162 H 181 H 172 H (75-99) mg/dL Total Protein (6.3-8.2) g/dL Albumin (3.5-5.0) g/dL 10/11/16 10/11/16 10/11/16 Range/Units 12:24 13:05 14:05 WBC (3.8-10.6) k/uL RBC (4.30-5.90) m/uL Hgb (13.0-17.5) gm/dL Hct (39.0-53.0) % Plt Count (150-450) k/uL Neutrophils # (1.3-7.7) k/uL Monocytes # (0-1.0) k/uL INR (<1.2) ABG pH (7.35-7.45) ABG pO2 (83-108) mmHg ABG HCO3 (21-25) mmol/L ABG Total CO2 (19-24) mmol/L Creatinine (0.66-1.25) mg/dL Glucose (74-99) mg/dL POC Glucose (mg/dL) 174 H 171 H 180 H (75-99) mg/dL Total Protein (6.3-8.2) g/dL Albumin (3.5-5.0) g/dL 10/11/16 10/11/16 10/11/16 Range/Units 15:05 16:14 17:50 WBC (3.8-10.6) k/uL RBC (4.30-5.90) m/uL Hgb (13.0-17.5) gm/dL Hct (39.0-53.0) % Plt Count (150-450) k/uL Neutrophils # (1.3-7.7) k/uL Monocytes # (0-1.0) k/uL INR (<1.2) ABG pH 7.48 H (7.35-7.45) ABG pO2 74 L (83-108) mmHg ABG HCO3 26 H (21-25) mmol/L ABG Total CO2 27 H (19-24) mmol/L Creatinine (0.66-1.25) mg/dL Glucose (74-99) mg/dL POC Glucose (mg/dL) 180 H 179 H (75-99) mg/dL Total Protein (6.3-8.2) g/dL Albumin (3.5-5.0) g/dL 10/11/16 10/11/16 10/11/16 Range/Units 18:51 20:09 22:03 WBC (3.8-10.6) k/uL RBC (4.30-5.90) m/uL Hgb (13.0-17.5) gm/dL Hct (39.0-53.0) % Plt Count (150-450) k/uL Neutrophils # (1.3-7.7) k/uL Monocytes # (0-1.0) k/uL INR (<1.2) ABG pH (7.35-7.45) ABG pO2 (83-108) mmHg ABG HCO3 (21-25) mmol/L ABG Total CO2 (19-24) mmol/L Creatinine (0.66-1.25) mg/dL Glucose (74-99) mg/dL POC Glucose (mg/dL) 164 H 167 H 152 H (75-99) mg/dL Total Protein (6.3-8.2) g/dL Albumin (3.5-5.0) g/dL 10/12/16 10/12/16 10/12/16 Range/Units 00:27 02:33 04:45 WBC (3.8-10.6) k/uL RBC (4.30-5.90) m/uL Hgb (13.0-17.5) gm/dL Hct (39.0-53.0) % Plt Count (150-450) k/uL Neutrophils # (1.3-7.7) k/uL Monocytes # (0-1.0) k/uL INR (<1.2) ABG pH (7.35-7.45) ABG pO2 (83-108) mmHg ABG HCO3 (21-25) mmol/L ABG Total CO2 (19-24) mmol/L Creatinine 0.60 L (0.66-1.25) mg/dL Glucose 169 H (74-99) mg/dL POC Glucose (mg/dL) 147 H 169 H (75-99) mg/dL Total Protein 4.6 L (6.3-8.2) g/dL Albumin 2.8 L (3.5-5.0) g/dL 10/12/16 10/12/16 10/12/16 Range/Units 04:45 04:45 04:45 WBC 13.0 H (3.8-10.6) k/uL RBC 3.13 L (4.30-5.90) m/uL Hgb 9.5 L (13.0-17.5) gm/dL Hct 27.0 L (39.0-53.0) % Plt Count 112 L (150-450) k/uL Neutrophils # 10.3 H (1.3-7.7) k/uL Monocytes # 1.2 H (0-1.0) k/uL INR 1.2 H (<1.2) ABG pH (7.35-7.45) ABG pO2 (83-108) mmHg ABG HCO3 (21-25) mmol/L ABG Total CO2 (19-24) mmol/L Creatinine (0.66-1.25) mg/dL Glucose (74-99) mg/dL POC Glucose (mg/dL) 178 H (75-99) mg/dL Total Protein (6.3-8.2) g/dL Albumin (3.5-5.0) g/dL 10/12/16 10/12/16 Range/Units 06:01 08:21 WBC (3.8-10.6) k/uL RBC (4.30-5.90) m/uL Hgb (13.0-17.5) gm/dL Hct (39.0-53.0) % Plt Count (150-450) k/uL Neutrophils # (1.3-7.7) k/uL Monocytes # (0-1.0) k/uL INR (<1.2) ABG pH (7.35-7.45) ABG pO2 (83-108) mmHg ABG HCO3 (21-25) mmol/L ABG Total CO2 (19-24) mmol/L Creatinine (0.66-1.25) mg/dL Glucose (74-99) mg/dL POC Glucose (mg/dL) 187 H 193 H (75-99) mg/dL Total Protein (6.3-8.2) g/dL Albumin (3.5-5.0) g/dL - Imaging and Cardiology Chest x-ray: report reviewed, image reviewed (Demonstrates a 5-10% right apical pneumothorax.) CT Scan - head: report reviewed (Computed tomography scan of the brain showed evidence of some small chronic small vessel ischemia or demyelinating disease, and did not show any acute intracranial abnormality.) Assessment and Plan (1) Non-STEMI (non-ST elevated myocardial infarction) Status: Acute (2) Coronary artery disease Status: Acute (3) Hypertension Status: Acute (4) COPD (chronic obstructive pulmonary disease) Status: Acute (5) Uncontrolled type 2 diabetes mellitus Status: Acute (6) GERD (gastroesophageal reflux disease) Status: Acute (7) Hemoglobin A1C greater than 9%, indicating poor diabetic control Status: Acute (8) CHF NYHA class III (symptoms with mildly strenuous activities) Status: Acute (9) Acute left-sided weakness Status: Acute Plan: 1. Continue aspirin, statin, Plavix, heparin subcu, metoprolol. We will increase his metoprolol to 25 mg by mouth twice a day 2. Cardizem 30 mg by mouth 4 times a day for radial artery spasm prevention. 3. Wean Cleviprex. 4. He will need to place a Dobbhoff tube, for nutrition and medications. 5. Wean O2 as tolerated. Encourage incentive spirometry use. 6. Increase activity, out of bed to chair as tolerated. Physical therapy to follow. 7. GI/DVT prophylaxis in place. 8. Will monitor daily labs, x-rays. 9. Consult Dr. Maloney from neurology for his left-sided weakness. 10. Maintain his systolic blood pressure 130 to 140 mmHg. 11. Remove [place]-Julián catheter in place Cordis to continuous CVP monitoring. 12. Ground AV epicardial pacemaker wires. 13. More recommendations as patient progresses. Time with Patient: Greater than 30 <Ramesh Klein - Last Filed: 10/12/16 10:50> Objective - Vital Signs Vital signs: Vital Signs Temp 98.1 F 10/10/16 17:00 Pulse 117 H 10/12/16 09:00 Resp 35 H 10/12/16 09:00 BP 129/76 10/12/16 09:00 Pulse Ox 96 10/12/16 09:00 Intake & Output 10/11/16 10/12/16 10/12/16 18:59 06:59 18:59 Intake Total 1297.938 457.263 200 Output Total 1215 1360 360 Balance 82.938 -902.737 -160 Weight 95.4 kg 94.4 kg Intake: IV 799.0 360 100 ACETAMINOPHEN IV (For NPO 100 ) 1,000 mg In Empty Bag 1 bag @ 400 mls/hr IVPB Q6HR [facility] Rx#:[id number] CO/CI 103 30 40 Diltiazem 125 mg In 5 Sodium Chloride 0.9% 100 ml @ 5 MG/HR 5 mls/hr IV .Q24H [facility] Rx#:[id number] Lactated Ringers 1,000 ml 480 330 60 @ 20 mls/hr IV .Q24H [facility] Rx#:[id number] Milrinone-D5w Pmx 20 mg 9.5 In Dextrose/Water 1 100ml .bag @ 0.1 MCG/KG/MIN 2. 61 mls/hr IV .Q24H [facility] Rx #:[id number] Nitroglycerin-D5w Pmx 50 1.5 mg In Dextrose/Water 1 250ml.bag @ 5 MCG/MIN 1.5 mls/hr IV .Q24H [facility] Rx#: [id number] ceFAZolin 2,000 mg In 100 Sodium Chloride 0.9% 30 ml @ 999 mls/hr IVPB ONCE PRN Rx#:[id number] Intake, IV Titration 498.938 97.263 100 Amount Clevidipine Butyrate 25 28.4 50.533 mg In Empty Bag 1 bag @ 1 MG/HR 2 mls/hr IV .Q24H [facility] Rx#:[id number] Diltiazem 125 mg In 63.667 Sodium Chloride 0.9% 100 ml @ 5 MG/HR 5 mls/hr IV .Q24H [facility] Rx#:[id number] Insulin Regular 100 unit 40.407 46.730 In Sodium Chloride 0.9% 100 ml @ Per Protocol IV .Q0M [facility] Rx#:[id number] Lactated Ringers 1,000 ml 30 @ 20 mls/hr IV .Q24H [facility] Rx#:[id number] Milrinone-D5w Pmx 20 mg 118.289 In Dextrose/Water 1 100ml .bag @ 0.1 MCG/KG/MIN 2. 61 mls/hr IV .Q24H [facility] Rx #:[id number] Nitroglycerin-D5w Pmx 50 18.175 mg In Dextrose/Water 1 250ml.bag @ 5 MCG/MIN 1.5 mls/hr IV .Q24H PRN Rx#: [id number] Potassium Chloride 10 meq 200 In Water For Injection 1 100ml.bag @ 100 mls/hr IVPB Q1H [facility] Rx#: [id number] Potassium Chloride 10 meq 100 In Water For Injection 1 100ml.bag @ 100 mls/hr IVPB Q1H [facility] Rx#: [id number] Output: Chest Tube Drainage 290 430 70 Bilateral Mediastinal 210 310 50 Chest Tube Left Lateral 80 120 20 Chest Drainage 60 20 left medial calf 60 20 Urine 865 910 290 Other: Voiding Method Indwelling Catheter Indwelling Catheter # Voids 1 ABP, PAP, CO, CI - Last Documented Arterial Blood Pressure 154/26 Pulmonary Artery Pressure 41/19 Cardiac Output 9.2 Cardiac Index 4.5 - Labs CBC & Chem 7: 08/30/17 04:45 10/12/16 04:45 Labs: Abnormal Lab Results - Last 24 Hours (Table) 10/10/16 10/10/16 10/10/16 Range/Units 08:38 09:48 10:43 WBC (3.8-10.6) k/uL RBC (4.30-5.90) m/uL Hgb (13.0-17.5) gm/dL Hct (39.0-53.0) % Plt Count (150-450) k/uL Neutrophils # (1.3-7.7) k/uL Monocytes # (0-1.0) k/uL INR (<1.2) ABG pH 7.34 L (7.35-7.45) ABG pCO2 46 H (35-45) mmHg ABG pO2 319 H 183 H (83-108) mmHg ABG HCO3 (21-25) mmol/L ABG Total CO2 26 H 26 H (19-24) mmol/L ABG O2 Saturation 99.9 H 97.2 H 99.7 H (94-97) % ABG Hematocrit (34.0-46.0) % ABG Potassium (3.4-4.5) mmol/L Creatinine (0.66-1.25) mg/dL Glucose (74-99) mg/dL POC Glucose (mg/dL) (75-99) mg/dL Total Protein (6.3-8.2) g/dL Albumin (3.5-5.0) g/dL Triglycerides (<150) mg/dL HDL Cholesterol (40-60) mg/dL Arterial Blood Potassium (3.4-4.5) mmol/L 10/10/16 10/10/16 10/11/16 Range/Units 11:12 11:39 11:08 WBC (3.8-10.6) k/uL RBC (4.30-5.90) m/uL Hgb (13.0-17.5) gm/dL Hct (39.0-53.0) % Plt Count (150-450) k/uL Neutrophils # (1.3-7.7) k/uL Monocytes # (0-1.0) k/uL INR (<1.2) ABG pH 7.30 L (7.35-7.45) ABG pCO2 54 H (35-45) mmHg ABG pO2 252 H 187 H (83-108) mmHg ABG HCO3 26 H (21-25) mmol/L ABG Total CO2 28 H 26 H (19-24) mmol/L ABG O2 Saturation 99.8 H 99.6 H (94-97) % ABG Hematocrit 29 L 30 L (34.0-46.0) % ABG Potassium 5.0 H 4.9 H (3.4-4.5) mmol/L Creatinine (0.66-1.25) mg/dL Glucose (74-99) mg/dL POC Glucose (mg/dL) 172 H (75-99) mg/dL Total Protein (6.3-8.2) g/dL Albumin (3.5-5.0) g/dL Triglycerides (<150) mg/dL HDL Cholesterol (40-60) mg/dL Arterial Blood Potassium 5.0 H 4.9 H (3.4-4.5) mmol/L 10/11/16 10/11/16 10/11/16 Range/Units 12:24 13:05 14:05 WBC (3.8-10.6) k/uL RBC (4.30-5.90) m/uL Hgb (13.0-17.5) gm/dL Hct (39.0-53.0) % Plt Count (150-450) k/uL Neutrophils # (1.3-7.7) k/uL Monocytes # (0-1.0) k/uL INR (<1.2) ABG pH (7.35-7.45) ABG pCO2 (35-45) mmHg ABG pO2 (83-108) mmHg ABG HCO3 (21-25) mmol/L ABG Total CO2 (19-24) mmol/L ABG O2 Saturation (94-97) % ABG Hematocrit (34.0-46.0) % ABG Potassium (3.4-4.5) mmol/L Creatinine (0.66-1.25) mg/dL Glucose (74-99) mg/dL POC Glucose (mg/dL) 174 H 171 H 180 H (75-99) mg/dL Total Protein (6.3-8.2) g/dL Albumin (3.5-5.0) g/dL Triglycerides (<150) mg/dL HDL Cholesterol (40-60) mg/dL Arterial Blood Potassium (3.4-4.5) mmol/L 10/11/16 10/11/16 10/11/16 Range/Units 15:05 16:14 17:50 WBC (3.8-10.6) k/uL RBC (4.30-5.90) m/uL Hgb (13.0-17.5) gm/dL Hct (39.0-53.0) % Plt Count (150-450) k/uL Neutrophils # (1.3-7.7) k/uL Monocytes # (0-1.0) k/uL INR (<1.2) ABG pH 7.48 H (7.35-7.45) ABG pCO2 (35-45) mmHg ABG pO2 74 L (83-108) mmHg ABG HCO3 26 H (21-25) mmol/L ABG Total CO2 27 H (19-24) mmol/L ABG O2 Saturation (94-97) % ABG Hematocrit (34.0-46.0) % ABG Potassium (3.4-4.5) mmol/L Creatinine (0.66-1.25) mg/dL Glucose (74-99) mg/dL POC Glucose (mg/dL) 180 H 179 H (75-99) mg/dL Total Protein (6.3-8.2) g/dL Albumin (3.5-5.0) g/dL Triglycerides (<150) mg/dL HDL Cholesterol (40-60) mg/dL Arterial Blood Potassium (3.4-4.5) mmol/L 10/11/16 10/11/16 10/11/16 Range/Units 18:51 20:09 22:03 WBC (3.8-10.6) k/uL RBC (4.30-5.90) m/uL Hgb (13.0-17.5) gm/dL Hct (39.0-53.0) % Plt Count (150-450) k/uL Neutrophils # (1.3-7.7) k/uL Monocytes # (0-1.0) k/uL INR (<1.2) ABG pH (7.35-7.45) ABG pCO2 (35-45) mmHg ABG pO2 (83-108) mmHg ABG HCO3 (21-25) mmol/L ABG Total CO2 (19-24) mmol/L ABG O2 Saturation (94-97) % ABG Hematocrit (34.0-46.0) % ABG Potassium (3.4-4.5) mmol/L Creatinine (0.66-1.25) mg/dL Glucose (74-99) mg/dL POC Glucose (mg/dL) 164 H 167 H 152 H (75-99) mg/dL Total Protein (6.3-8.2) g/dL Albumin (3.5-5.0) g/dL Triglycerides (<150) mg/dL HDL Cholesterol (40-60) mg/dL Arterial Blood Potassium (3.4-4.5) mmol/L 10/12/16 10/12/16 10/12/16 Range/Units 00:27 02:33 04:45 WBC (3.8-10.6) k/uL RBC (4.30-5.90) m/uL Hgb (13.0-17.5) gm/dL Hct (39.0-53.0) % Plt Count (150-450) k/uL Neutrophils # (1.3-7.7) k/uL Monocytes # (0-1.0) k/uL INR (<1.2) ABG pH (7.35-7.45) ABG pCO2 (35-45) mmHg ABG pO2 (83-108) mmHg ABG HCO3 (21-25) mmol/L ABG Total CO2 (19-24) mmol/L ABG O2 Saturation (94-97) % ABG Hematocrit (34.0-46.0) % ABG Potassium (3.4-4.5) mmol/L Creatinine 0.60 L (0.66-1.25) mg/dL Glucose 169 H (74-99) mg/dL POC Glucose (mg/dL) 147 H 169 H (75-99) mg/dL Total Protein 4.6 L (6.3-8.2) g/dL Albumin 2.8 L (3.5-5.0) g/dL Triglycerides (<150) mg/dL HDL Cholesterol (40-60) mg/dL Arterial Blood Potassium (3.4-4.5) mmol/L 10/12/16 10/12/16 10/12/16 Range/Units 04:45 04:45 04:45 WBC 13.0 H (3.8-10.6) k/uL RBC 3.13 L (4.30-5.90) m/uL Hgb 9.5 L (13.0-17.5) gm/dL Hct 27.0 L (39.0-53.0) % Plt Count 112 L (150-450) k/uL Neutrophils # 10.3 H (1.3-7.7) k/uL Monocytes # 1.2 H (0-1.0) k/uL INR 1.2 H (<1.2) ABG pH (7.35-7.45) ABG pCO2 (35-45) mmHg ABG pO2 (83-108) mmHg ABG HCO3 (21-25) mmol/L ABG Total CO2 (19-24) mmol/L ABG O2 Saturation (94-97) % ABG Hematocrit (34.0-46.0) % ABG Potassium (3.4-4.5) mmol/L Creatinine (0.66-1.25) mg/dL Glucose (74-99) mg/dL POC Glucose (mg/dL) 178 H (75-99) mg/dL Total Protein (6.3-8.2) g/dL Albumin (3.5-5.0) g/dL Triglycerides (<150) mg/dL HDL Cholesterol (40-60) mg/dL Arterial Blood Potassium (3.4-4.5) mmol/L 10/12/16 10/12/16 10/12/16 Range/Units 04:45 06:01 08:21 WBC (3.8-10.6) k/uL RBC (4.30-5.90) m/uL Hgb (13.0-17.5) gm/dL Hct (39.0-53.0) % Plt Count (150-450) k/uL Neutrophils # (1.3-7.7) k/uL Monocytes # (0-1.0) k/uL INR (<1.2) ABG pH (7.35-7.45) ABG pCO2 (35-45) mmHg ABG pO2 (83-108) mmHg ABG HCO3 (21-25) mmol/L ABG Total CO2 (19-24) mmol/L ABG O2 Saturation (94-97) % ABG Hematocrit (34.0-46.0) % ABG Potassium (3.4-4.5) mmol/L Creatinine (0.66-1.25) mg/dL Glucose (74-99) mg/dL POC Glucose (mg/dL) 187 H 193 H (75-99) mg/dL Total Protein (6.3-8.2) g/dL Albumin (3.5-5.0) g/dL Triglycerides 163 H (<150) mg/dL HDL Cholesterol 19 L (40-60) mg/dL Arterial Blood Potassium (3.4-4.5) mmol/L 10/12/16 Range/Units 08:58 WBC (3.8-10.6) k/uL RBC (4.30-5.90) m/uL Hgb (13.0-17.5) gm/dL Hct (39.0-53.0) % Plt Count (150-450) k/uL Neutrophils # (1.3-7.7) k/uL Monocytes # (0-1.0) k/uL INR (<1.2) ABG pH (7.35-7.45) ABG pCO2 (35-45) mmHg ABG pO2 (83-108) mmHg ABG HCO3 (21-25) mmol/L ABG Total CO2 (19-24) mmol/L ABG O2 Saturation (94-97) % ABG Hematocrit (34.0-46.0) % ABG Potassium (3.4-4.5) mmol/L Creatinine (0.66-1.25) mg/dL Glucose (74-99) mg/dL POC Glucose (mg/dL) 187 H (75-99) mg/dL Total Protein (6.3-8.2) g/dL Albumin (3.5-5.0) g/dL Triglycerides (<150) mg/dL HDL Cholesterol (40-60) mg/dL Arterial Blood Potassium (3.4-4.5) mmol/L Assessment and Plan Plan: The patient was seen and examined. I agree with the above assessment and plan. On examination, he continues to have left-sided weakness with the left upper extremity weaker than the left lower extremity. He is unable to speak and unable to swallow or cough effectively. A computed tomography scan of the head was performed last night which was negative for acute process. Neurology has been consulted. Otherwise we will remove his [place] catheter. I would like to keep his blood pressure slightly on the elevated side to help maximize cerebral perfusion. We will keep his chest tubes for now. His chest x-ray does show a small right apical pneumothorax. There is no airleak noted. A Dobbhoff tube will be placed for both medication and nutrition.
[2016-10-12 10:30] LABS: Cholesterol 61 mg/dL (<200); HDL Cholesterol 19 mg/dL (40-60)
--- NOTE | 2016-10-12 11:47 | XR ---
EXAMINATION TYPE: XR chest 1V portable DATE OF EXAM: 10/12/2016 COMPARISON: 10/12/2016 HISTORY: Dobbhoff placement TECHNIQUE: Single frontal view of the chest is obtained. FINDINGS: Lung apices are not included and reevaluation of the right pneumothorax cannot be performe d for interval change. Dobbhoff tube appears coiled within the esophagus and repositioning is recomme nded. Postsurgical changes in remaining lines and tubes are unchanged. Cardiomegaly is redemonstrated . Left basal atelectasis remains. IMPRESSION: 1. Enteric tube is coiled within the upper esophagus and should be repositioned. 2. Stable lines, tubes and postsurgical changes. Left thoracostomy is noted to be unchanged with no l eft residual pneumothorax, however right lung apex is not imaged and reevaluation of the right pneumo thorax cannot be performed. A Yellow message has been communicated to Familia Ramírez via the [facility] Critical Result system o n 10/12/2016 11:44 AM, Message ID [id number].
--- NOTE | 2016-10-12 12:32 | P.VSCSTY ---
Greater Saphenous Vein Mapping This is bilateral lower extremity greater saphenous vein mapping. Date of service 10/06/2016 Vein quality and ultrasound appearance normal. Vein size groin right 4.9 x 8.9 groin left 4.5 x 7.1 High thigh right 4.5 x 6.2 high thigh left 3.8 x 3.2 Mid thigh right 2.9 x 2.5 mid thigh left 3.5 x 3.7 Above-knee right 1.7 x 2.6 above- knee left 3.0 x 4.7 Below knee right 2.0 x 2.4 below-knee left 3.5 x 3.5 Mid calf right 1.7 x 2.4 mid calf left 2.7 x 2.4 Ankle right 2.0 x 3.9 ankle left 3.4 x 5.5 Impression usable greater saphenous vein. Left much more consistent on the right..
--- NOTE | 2016-10-12 12:34 | P.ARTDOP ---
Arterial Doppler LOWER EXTREMITY ARTERIAL DOPPLER: DATE OF SERVICE: 10/07/2016 Reason for study: Pre-CABG. Doppler waveforms: Multiphasic bilaterally throughout. Pulse volume recording: []. Pressure gradients: None. Ankle-brachial indices: Greater than 1 bilaterally. Toe pressures: [] on the right, [] on the left Impression: Normal study.
[2016-10-12 13:05] LABS: ABG Base Excess 0.1 mmol/L; ABG HCO3 24 mmol/L (21-25); ABG Hematocrit 30 % (34.0-46.0); ABG Oxygen Saturation 99.7 % (94-97); ABG PCO2 40 mmHg (35-45); ABG PO2 203 mmHg (83-108); ABG TCO2 26 mmol/L (19-24)
[2016-10-12 13:06] LABS: ABG Base Excess 0.2 mmol/L; ABG HCO3 26 mmol/L (21-25); ABG Hematocrit 31 % (34.0-46.0); ABG Oxygen Saturation 99.9 % (94-97); ABG PCO2 50 mmHg (35-45); ABG PH 7.34 (7.35-7.45); ABG PO2 287 mmHg (83-108); ABG TCO2 27 mmol/L (19-24)
[2016-10-12 13:07] LABS: ABG Base Excess -0.4 mmol/L; ABG HCO3 24 mmol/L (21-25); ABG Hematocrit 29 % (34.0-46.0); ABG Oxygen Saturation 99.8 % (94-97); ABG PCO2 43 mmHg (35-45); ABG PH 7.37 (7.35-7.45); ABG PO2 238 mmHg (83-108); ABG TCO2 26 mmol/L (19-24)
[2016-10-12 13:08] LABS: ABG Base Excess 0.4 mmol/L; ABG HCO3 24 mmol/L (21-25); ABG Hematocrit 32 % (34.0-46.0); ABG Oxygen Saturation 97.1 % (94-97); ABG PCO2 39 mmHg (35-45); ABG PH 7.42 (7.35-7.45); ABG PO2 90 mmHg (83-108); ABG TCO2 26 mmol/L (19-24)
--- NOTE | 2016-10-12 13:16 | P.PN ---
Subjective Patient getting an EEG today. Apparently left-sided weakness and possible stroke and being worked up for this, post CABG vitals are stable. Currently are aspirin 325 mg by mouth daily atorvastatin 40 mg by mouth daily Plavix and diltiazem and beta blockers Impression Multivessel coronary artery disease status post coronary artery bypass grafting Possible CVA Suggest Continue cardiac medications Continue ICU care Neuro workup Objective - Vital Signs Vital signs: Vital Signs Temp 98.1 F 10/10/16 17:00 Pulse 111 H 10/12/16 13:14 Resp 32 H 10/12/16 10:00 BP 129/76 10/12/16 10:00 Pulse Ox 98 10/12/16 10:00 Intake & Output 10/11/16 10/12/16 10/12/16 18:59 06:59 18:59 Intake Total 1297.938 457.263 470 Output Total 1215 1360 760 Balance 82.938 -902.737 -290 Weight 95.4 kg 94.4 kg Intake: IV 799.0 360 220 ACETAMINOPHEN IV (For NPO 100 ) 1,000 mg In Empty Bag 1 bag @ 400 mls/hr IVPB Q6HR [facility] Rx#:[id number] CO/CI 103 30 40 Diltiazem 125 mg In 5 Sodium Chloride 0.9% 100 ml @ 5 MG/HR 5 mls/hr IV .Q24H [facility] Rx#:[id number] Lactated Ringers 1,000 ml 480 330 180 @ 20 mls/hr IV .Q24H [facility] Rx#:[id number] Milrinone-D5w Pmx 20 mg 9.5 In Dextrose/Water 1 100ml .bag @ 0.1 MCG/KG/MIN 2. 61 mls/hr IV .Q24H [facility] Rx #:[id number] Nitroglycerin-D5w Pmx 50 1.5 mg In Dextrose/Water 1 250ml.bag @ 5 MCG/MIN 1.5 mls/hr IV .Q24H [facility] Rx#: [id number] ceFAZolin 2,000 mg In 100 Sodium Chloride 0.9% 30 ml @ 999 mls/hr IVPB ONCE PRN Rx#:[id number] Intake, IV Titration 498.938 97.263 250 Amount Clevidipine Butyrate 25 28.4 50.533 50 mg In Empty Bag 1 bag @ 1 MG/HR 2 mls/hr IV .Q24H [facility] Rx#:[id number] Diltiazem 125 mg In 63.667 Sodium Chloride 0.9% 100 ml @ 5 MG/HR 5 mls/hr IV .Q24H [facility] Rx#:[id number] Insulin Regular 100 unit 40.407 46.730 In Sodium Chloride 0.9% 100 ml @ Per Protocol IV .Q0M [facility] Rx#:[id number] Lactated Ringers 1,000 ml 30 @ 20 mls/hr IV .Q24H [facility] Rx#:[id number] Milrinone-D5w Pmx 20 mg 118.289 In Dextrose/Water 1 100ml .bag @ 0.1 MCG/KG/MIN 2. 61 mls/hr IV .Q24H [facility] Rx #:[id number] Nitroglycerin-D5w Pmx 50 18.175 mg In Dextrose/Water 1 250ml.bag @ 5 MCG/MIN 1.5 mls/hr IV .Q24H PRN Rx#: [id number] Potassium Chloride 10 meq 200 In Water For Injection 1 100ml.bag @ 100 mls/hr IVPB Q1H [facility] Rx#: [id number] Potassium Chloride 10 meq 200 In Water For Injection 1 100ml.bag @ 100 mls/hr IVPB Q1H [facility] Rx#: [id number] Output: Chest Tube Drainage 290 430 135 Bilateral Mediastinal 210 310 95 Chest Tube Left Lateral 80 120 40 Chest Drainage 60 20 30 left medial calf 60 20 30 Urine 865 910 595 Other: Voiding Method Indwelling Catheter Indwelling Catheter Indwelling Catheter # Voids 1 ABP, PAP, CO, CI - Last Documented Arterial Blood Pressure 156/81 Pulmonary Artery Pressure 49/30 Cardiac Output 9.2 Cardiac Index 4.5 - Labs CBC & Chem 7: 10/12/16 04:45 10/12/16 04:45 Labs: Abnormal Lab Results - Last 24 Hours (Table) 10/10/16 10/10/16 10/10/16 Range/Units 08:38 09:48 10:43 WBC (3.8-10.6) k/uL RBC (4.30-5.90) m/uL Hgb (13.0-17.5) gm/dL Hct (39.0-53.0) % Plt Count (150-450) k/uL Neutrophils # (1.3-7.7) k/uL Monocytes # (0-1.0) k/uL INR (<1.2) ABG pH 7.34 L (7.35-7.45) ABG pCO2 46 H (35-45) mmHg ABG pO2 319 H 183 H (83-108) mmHg ABG HCO3 (21-25) mmol/L ABG Total CO2 26 H 26 H (19-24) mmol/L ABG O2 Saturation 99.9 H 97.2 H 99.7 H (94-97) % ABG Hematocrit (34.0-46.0) % ABG Potassium (3.4-4.5) mmol/L Creatinine (0.66-1.25) mg/dL Glucose (74-99) mg/dL POC Glucose (mg/dL) (75-99) mg/dL Total Protein (6.3-8.2) g/dL Albumin (3.5-5.0) g/dL Triglycerides (<150) mg/dL HDL Cholesterol (40-60) mg/dL Arterial Blood Potassium (3.4-4.5) mmol/L 10/10/16 10/10/16 10/10/16 Range/Units 11:12 11:39 12:12 WBC (3.8-10.6) k/uL RBC (4.30-5.90) m/uL Hgb (13.0-17.5) gm/dL Hct (39.0-53.0) % Plt Count (150-450) k/uL Neutrophils # (1.3-7.7) k/uL Monocytes # (0-1.0) k/uL INR (<1.2) ABG pH 7.30 L (7.35-7.45) ABG pCO2 54 H (35-45) mmHg ABG pO2 252 H 187 H 203 H (83-108) mmHg ABG HCO3 26 H (21-25) mmol/L ABG Total CO2 28 H 26 H 26 H (19-24) mmol/L ABG O2 Saturation 99.8 H 99.6 H 99.7 H (94-97) % ABG Hematocrit 29 L 30 L 30 L (34.0-46.0) % ABG Potassium 5.0 H 4.9 H 4.6 H (3.4-4.5) mmol/L Creatinine (0.66-1.25) mg/dL Glucose (74-99) mg/dL POC Glucose (mg/dL) (75-99) mg/dL Total Protein (6.3-8.2) g/dL Albumin (3.5-5.0) g/dL Triglycerides (<150) mg/dL HDL Cholesterol (40-60) mg/dL Arterial Blood Potassium 5.0 H 4.9 H 4.6 H (3.4-4.5) mmol/L 10/10/16 10/10/16 10/10/16 Range/Units 12:43 13:35 14:47 WBC (3.8-10.6) k/uL RBC (4.30-5.90) m/uL Hgb (13.0-17.5) gm/dL Hct (39.0-53.0) % Plt Count (150-450) k/uL Neutrophils # (1.3-7.7) k/uL Monocytes # (0-1.0) k/uL INR (<1.2) ABG pH 7.34 L (7.35-7.45) ABG pCO2 50 H (35-45) mmHg ABG pO2 287 H 238 H (83-108) mmHg ABG HCO3 26 H (21-25) mmol/L ABG Total CO2 27 H 26 H 26 H (19-24) mmol/L ABG O2 Saturation 99.9 H 99.8 H 97.1 H (94-97) % ABG Hematocrit 31 L 29 L 32 L (34.0-46.0) % ABG Potassium (3.4-4.5) mmol/L Creatinine (0.66-1.25) mg/dL Glucose (74-99) mg/dL POC Glucose (mg/dL) (75-99) mg/dL Total Protein (6.3-8.2) g/dL Albumin (3.5-5.0) g/dL Triglycerides (<150) mg/dL HDL Cholesterol (40-60) mg/dL Arterial Blood Potassium (3.4-4.5) mmol/L 10/11/16 10/11/16 10/11/16 Range/Units 13:05 14:05 15:05 WBC (3.8-10.6) k/uL RBC (4.30-5.90) m/uL Hgb (13.0-17.5) gm/dL Hct (39.0-53.0) % Plt Count (150-450) k/uL Neutrophils # (1.3-7.7) k/uL Monocytes # (0-1.0) k/uL INR (<1.2) ABG pH (7.35-7.45) ABG pCO2 (35-45) mmHg ABG pO2 (83-108) mmHg ABG HCO3 (21-25) mmol/L ABG Total CO2 (19-24) mmol/L ABG O2 Saturation (94-97) % ABG Hematocrit (34.0-46.0) % ABG Potassium (3.4-4.5) mmol/L Creatinine (0.66-1.25) mg/dL Glucose (74-99) mg/dL POC Glucose (mg/dL) 171 H 180 H 180 H (75-99) mg/dL Total Protein (6.3-8.2) g/dL Albumin (3.5-5.0) g/dL Triglycerides (<150) mg/dL HDL Cholesterol (40-60) mg/dL Arterial Blood Potassium (3.4-4.5) mmol/L 10/11/16 10/11/16 10/11/16 Range/Units 16:14 17:50 18:51 WBC (3.8-10.6) k/uL RBC (4.30-5.90) m/uL Hgb (13.0-17.5) gm/dL Hct (39.0-53.0) % Plt Count (150-450) k/uL Neutrophils # (1.3-7.7) k/uL Monocytes # (0-1.0) k/uL INR (<1.2) ABG pH 7.48 H (7.35-7.45) ABG pCO2 (35-45) mmHg ABG pO2 74 L (83-108) mmHg ABG HCO3 26 H (21-25) mmol/L ABG Total CO2 27 H (19-24) mmol/L ABG O2 Saturation (94-97) % ABG Hematocrit (34.0-46.0) % ABG Potassium (3.4-4.5) mmol/L Creatinine (0.66-1.25) mg/dL Glucose (74-99) mg/dL POC Glucose (mg/dL) 179 H 164 H (75-99) mg/dL Total Protein (6.3-8.2) g/dL Albumin (3.5-5.0) g/dL Triglycerides (<150) mg/dL HDL Cholesterol (40-60) mg/dL Arterial Blood Potassium (3.4-4.5) mmol/L 10/11/16 10/11/16 10/12/16 Range/Units 20:09 22:03 00:27 WBC (3.8-10.6) k/uL RBC (4.30-5.90) m/uL Hgb (13.0-17.5) gm/dL Hct (39.0-53.0) % Plt Count (150-450) k/uL Neutrophils # (1.3-7.7) k/uL Monocytes # (0-1.0) k/uL INR (<1.2) ABG pH (7.35-7.45) ABG pCO2 (35-45) mmHg ABG pO2 (83-108) mmHg ABG HCO3 (21-25) mmol/L ABG Total CO2 (19-24) mmol/L ABG O2 Saturation (94-97) % ABG Hematocrit (34.0-46.0) % ABG Potassium (3.4-4.5) mmol/L Creatinine (0.66-1.25) mg/dL Glucose (74-99) mg/dL POC Glucose (mg/dL) 167 H 152 H 147 H (75-99) mg/dL Total Protein (6.3-8.2) g/dL Albumin (3.5-5.0) g/dL Triglycerides (<150) mg/dL HDL Cholesterol (40-60) mg/dL Arterial Blood Potassium (3.4-4.5) mmol/L 10/12/16 10/12/16 10/12/16 Range/Units 02:33 04:45 04:45 WBC 13.0 H (3.8-10.6) k/uL RBC 3.13 L (4.30-5.90) m/uL Hgb 9.5 L (13.0-17.5) gm/dL Hct 27.0 L (39.0-53.0) % Plt Count 112 L (150-450) k/uL Neutrophils # 10.3 H (1.3-7.7) k/uL Monocytes # 1.2 H (0-1.0) k/uL INR (<1.2) ABG pH (7.35-7.45) ABG pCO2 (35-45) mmHg ABG pO2 (83-108) mmHg ABG HCO3 (21-25) mmol/L ABG Total CO2 (19-24) mmol/L ABG O2 Saturation (94-97) % ABG Hematocrit (34.0-46.0) % ABG Potassium (3.4-4.5) mmol/L Creatinine 0.60 L (0.66-1.25) mg/dL Glucose 169 H (74-99) mg/dL POC Glucose (mg/dL) 169 H (75-99) mg/dL Total Protein 4.6 L (6.3-8.2) g/dL Albumin 2.8 L (3.5-5.0) g/dL Triglycerides (<150) mg/dL HDL Cholesterol (40-60) mg/dL Arterial Blood Potassium (3.4-4.5) mmol/L 10/12/16 10/12/16 10/12/16 Range/Units 04:45 04:45 04:45 WBC (3.8-10.6) k/uL RBC (4.30-5.90) m/uL Hgb (13.0-17.5) gm/dL Hct (39.0-53.0) % Plt Count (150-450) k/uL Neutrophils # (1.3-7.7) k/uL Monocytes # (0-1.0) k/uL INR 1.2 H (<1.2) ABG pH (7.35-7.45) ABG pCO2 (35-45) mmHg ABG pO2 (83-108) mmHg ABG HCO3 (21-25) mmol/L ABG Total CO2 (19-24) mmol/L ABG O2 Saturation (94-97) % ABG Hematocrit (34.0-46.0) % ABG Potassium (3.4-4.5) mmol/L Creatinine (0.66-1.25) mg/dL Glucose (74-99) mg/dL POC Glucose (mg/dL) 178 H (75-99) mg/dL Total Protein (6.3-8.2) g/dL Albumin (3.5-5.0) g/dL Triglycerides 163 H (<150) mg/dL HDL Cholesterol 19 L (40-60) mg/dL Arterial Blood Potassium (3.4-4.5) mmol/L 10/12/16 10/12/16 10/12/16 Range/Units 06:01 08:21 08:58 WBC (3.8-10.6) k/uL RBC (4.30-5.90) m/uL Hgb (13.0-17.5) gm/dL Hct (39.0-53.0) % Plt Count (150-450) k/uL Neutrophils # (1.3-7.7) k/uL Monocytes # (0-1.0) k/uL INR (<1.2) ABG pH (7.35-7.45) ABG pCO2 (35-45) mmHg ABG pO2 (83-108) mmHg ABG HCO3 (21-25) mmol/L ABG Total CO2 (19-24) mmol/L ABG O2 Saturation (94-97) % ABG Hematocrit (34.0-46.0) % ABG Potassium (3.4-4.5) mmol/L Creatinine (0.66-1.25) mg/dL Glucose (74-99) mg/dL POC Glucose (mg/dL) 187 H 193 H 187 H (75-99) mg/dL Total Protein (6.3-8.2) g/dL Albumin (3.5-5.0) g/dL Triglycerides (<150) mg/dL HDL Cholesterol (40-60) mg/dL Arterial Blood Potassium (3.4-4.5) mmol/L
[2016-10-12] MEDS ORDERED: ASPIRIN 300 MG SUPP RECTAL SCH (13:45)
[2016-10-12 14:06] LABS: Glucose,Whole Blood 190 mg/dL (75-99)
[2016-10-12 14:07] LABS: Glucose,Whole Blood 184 mg/dL (75-99)
[2016-10-12 14:08] LABS: Glucose,Whole Blood 166 mg/dL (75-99)
[2016-10-12] MEDS: METOPROLOL TARTRATE 5 MG/5 ML VIAL IVP SCH ×2 (14:25→18:20)
[2016-10-12 15:03] LABS: Glucose,Whole Blood 144 mg/dL (75-99)
[2016-10-12] MEDS: hydrALAZINE HCL 20 MG/ML 1 ML VIAL IVP PRN (16:15)
--- NOTE | 2016-10-12 16:31 | CT ---
EXAMINATION TYPE: CT brain wo con DATE OF EXAM: 10/12/2016 COMPARISON: CT brain from yesterday. HISTORY: Continued left sided weakness after open heart surgery yesterday. CT DLP: 1062.70 mGycm. Automated Exposure Control for Dose Reduction was Utilized. TECHNIQUE: CT scan of the head is performed without contrast. FINDINGS: There is no acute intracranial hemorrhage or midline shift identified. There is mild vent ricular and sulcal prominence consistent with mild age-related cerebral atrophy. There are slightly m ore prominent areas of hypodensity in the deep and periventricular white matter redemonstrated bilate rally. The globes are intact and the visualized sinuses are clear. IMPRESSION: No acute intracranial hemorrhage or midline shift is seen. There is mild diffuse cerebra l atrophy and moderate to severe nonspecific white matter changes redemonstrated without significant change from prior study. Areas of acute infarct are difficult to entirely exclude in the broad differ ential. No significant change from prior study is noted. Consider MRI correlation.
[2016-10-12 16:37] LABS: Glucose,Whole Blood 123 mg/dL (75-99)
[2016-10-12 17:43] LABS: Glucose,Whole Blood 132 mg/dL (75-99)
[2016-10-12 18:10] LABS: ABG HCO3 25 mmol/L (21-25); ABG PCO2 31 mmHg (35-45); ABG PH 7.52 (7.35-7.45); ABG PO2 60 mmHg (83-108)
[2016-10-12 18:11] LABS: ABG Base Excess 2.6 mmol/L
[2016-10-12] MEDS: LACTATED RINGERS 1,000 ML IV SCH (18:20)
--- NOTE | 2016-10-12 18:27 | OP ---
DATE OF SURGERY: 10/10/16 PREOPERATIVE DIAGNOSIS: Coronary artery disease. POSTOPERATIVE DIAGNOSIS: Coronary artery disease. PROCEDURE: 1. Urgent coronary artery bypass grafting times four vessels (left internal mammary artery to left anterior descending artery, radial artery to ramus artery , saphenous vein graft to diagonal artery, saphenous vein graft to posterior descending artery). 2. Endoscopic vein harvest left greater saphenous vein. 3. Endoscopic harvest of left radial artery. 4. Epiaortic ultrasound. 5. Transesophageal echocardiogram. SURGEON: Ramesh Klein M.D. [place] REPRESENTATIVE: 1. Calos AREVALO 2. PASTORA Vaughan. 3. PASTORA Kurtz. ANESTHESIA: General anesthesia. SPECIMENS: None. COMPLICATIONS: None. INDICATIONS: The patient is a 50-year-old male, who did not receive routine medical care, who presented to the hospital with chest pain and shortness of breath. Workup revealed multivessel coronary artery disease . Coronary artery bypass was recommended. The risks, benefits, and alternatives of the procedure were discussed with the patient. All questions were answered. Consent was obtained. FINDINGS: The left internal mammary artery was good conduit with brisk flow. The left radial artery was a good conduit. The saphenous vein was a good conduit. The LAD contained diffuse disease and measured 1.3 mm. The diagonal artery measured 1.3 mm. The ramus artery measured 1.3 mm. The PDA measured 1.3 mm. The obtuse marginal artery was identified but appeared to be too small for bypass. PROCEDURE IN DETAIL: The patient was taken to the operating room and placed supine on the operating room table. After induction of general anesthesia, he was prepped and draped in the usual sterile fashion. Preoperative transesophageal echocardiogram revealed an ejection fraction of about 30 to 35% . There was no significant valvular pathology. A median sternotomy was performed. The left internal mammary artery was harvested in the standard fashion taking care to clip all branches. Intravenous heparin was administered and the vessel was transected distally revealing brisk flow. Simultaneously, the left radial artery was harvested using endoscopic technique. All branches were tied. The artery was a good conduit. In addition, greater saphenous vein was harvested from the left lower extremity using standard endoscopic technique. All branches were tied. The vein was a good conduit. A pericardial cradle was created. The ascending aorta was palpated and appeared to be soft and free of disease. Epiaortic ultrasound was then performed on the ascending aorta. There was no significant plaque noted. An arterial cannula was placed in the distal ascending aorta. The venous cannula was placed through the right atrial appendage and directed into the IVC. Both antegrade and retrograde catheters were placed as well. The patient was then placed on cardiopulmonary bypass with decompression of the heart. The aorta cross clamp was applied. Cold blood potassium cardioplegia was delivered in both antegrade and retrograde fashion to achieve arrest of the heart. It was noted cardioplegia was delivered every 15 to 20 minutes while the patient remained under crossclamp. We began by inspecting the inferior wall. The right coronary artery was palpated and it contained diffuse calcific disease. A soft spot for bypass was noted in the proximal PDA. An arteriotomy was created. This vessel accepted a 1.0 mm probe both proximally and distally. Using saphenous vein in a reverse fashion, an end to side anastomosis was created. This was performed using running 7-0 Prolene suture. The graft was hemostatic and had great flow. Next , the lateral wall was inspected. The obtuse marginal artery was identified. It was dissected free and appeared to be too small for bypass. The ramus artery was then identified. It was noted to be intramyocardial in location. A fair amount of dissection was performed through the muscle in order to identify the vessel. It appeared to have diffuse disease but soft spot amenable to bypass was identified. Using the radial artery, and end to side anastomosis was created. This was performed using running 7-0 Prolene suture. The graft was hemostatic and had great flow. Next, the diagonal artery was identified. It too was intramyocardial in location. After a fair amount of dissection, the vessel was identified. An arteriotomy was created. This vessel accepted a 1 mm probe . Using saphenous vein done in reverse fashion, an end to side anastomosis was created. This was performed using running 7-0 Prolene suture. The graft was hemostatic and had good flow. Finally , the left anterior descending artery was identified. It contained diffuse disease. A soft spot amenable bypass was identified. Using the left internal mammary artery, an end to side anastomosis was created. This was performed using running 8-0 Prolene suture. The graft was hemostatic. The mammary pedicle was then tacked down to the anterior surface of the heart. Attention was then turned to the proximal anastomoses. These were performed to the ascending aorta in an end to side fashion. The vein grafts were attached using running 6-0 Prolene suture. The left radial artery was attached to the ascending aorta using running 7-0 Prolene suture. One liter of warm blood was delivered in retrograde fashion. Both Lidocaine and magnesium were administered as well. The aorta cross clamp was removed. The heard had spontaneous return of normal sinus rhythm. The grafts were de-aired in standard fashion. The distal anastomosis were inspected and appeared to be hemostatic. Temporary atrial and ventricular pacing wires were placed and brought through the skin. The retrograde catheter was removed. The patient was then weaned off cardiopulmonary bypass. He without difficulty. Follow-up transesophageal echocardiogram revealed improvement in his ejection fraction with no valvular pathology. Protamine was administered. There was no adverse reactions. The remaining cannulas were removed. The mediastinum was copiously irrigated with warm saline solution. All surgical sites were inspected and appeared to be hemostatic. Reinforcement sutures were placed as needed. A straight 32 [place] chest tube was placed and directed into the left pleural space. Two additional straight 32 [place] chest tubes placed and directed into the mediastinum. These were also secured to the skin using sutures. The sternum was then reapproximated using stainless steel wires in a figure of eight fashion. The remainder of the wound was closed in layers. A sterile dressing was then applied. The patient appeared to tolerate the procedure well. There were no immediate complications. He returned to the ICU in critical but stable condition. SUKHDEEP
[2016-10-12] MEDS ORDERED: PROPOFOL 1,000 MG/100 ML VIAL IV ONE (18:40)
[2016-10-12] MEDS ORDERED: CISATRACURIUM 2 MG/ML 5 ML VIAL IV ONE ×2 (18:41→19:00)
--- NOTE | 2016-10-12 18:59 | PN ---
ICU TIME: 30 minutes SUBJECTIVE: Cardiac surgeon, tube drawing supervisor consults appreciated. This is a 50- year-old white male with chest pain, hyperglycemia. He is on insulin drip at this time. He appears to be lethargic post CABG surgery times four. The patient is wheezy. Cardiovascular: S1, S2. He does awake and talk to me, shakes hands when asked. He falls right back asleep. He is treated with empiric antibiotics. ( ) medicines will be withheld. ICU notes all appreciated. ICU time: 30 minutes. SUKHDEEP
--- NOTE | 2016-10-12 19:29 | P.PCN ---
Date of Procedure: 10/12/16 Preoperative Diagnosis: Acute hypoxic respiratory failure, coronary artery disease, acute CVA with left hemiparesis Postoperative Diagnosis: As above Procedure(s) Performed: Endotracheal tube insertion Implants: Anesthesia: other Surgeon: Familia Ali Condition: critical Disposition: ICU Indications for Procedure: As above Operative Findings: As below Description of Procedure: #4 [place] blade was utilized to perform direct laryngoscopy, number endotracheal tube passed through the vocal cords without difficulty secured with 22 cm elizabeth positive end-tidal CO2 with bilateral breath sounds patient tolerated the procedure well no complications noted, chest x-ray pending
--- NOTE | 2016-10-12 19:32 | P.PCN ---
Date of Procedure: 10/12/16 Preoperative Diagnosis: Acute hypoxic dyspnea failure, acute CVA with left hemiparesis, coronary artery disease status post CABG Postoperative Diagnosis: As above Procedure(s) Performed: Left internal jugular triple-lumen catheter placement, central line Implants: Anesthesia: local Surgeon: Familia Ramírez Estimated Blood Loss (ml): 0 Pathology: none sent Condition: critical Disposition: ICU Indications for Procedure: As above Operative Findings: As below Description of Procedure: Patient prepared and draped in the usual fashion informed consent obtained from the family using sterilized technique modified some degenerative technique triple-lumen catheter inserted into the left improved jugular vein via posterior approach patient tolerated the procedure well no complication noted secured remember 3 symptoms chest x-ray pending
--- NOTE | 2016-10-12 19:47 | XR ---
EXAMINATION TYPE: XR chest 1V DATE OF EXAM: 10/12/2016 COMPARISON: Today HISTORY: Check line placement TECHNIQUE: Single frontal view of the chest is obtained. FINDINGS: Endotracheal tube is in good position. There is left jugular catheter with tip in the supe rior vena cava. There is a nasogastric tube that appears in good position. There are sternal wires. T here is a left chest tube. I see no pneumothorax. There is no gross heart failure. There is no pleura l effusion. IMPRESSION: No active cardiopulmonary disease. No adverse change compared to last exam.
[2016-10-12 20:05] LABS: Glucose,Whole Blood 193 mg/dL (75-99)
[2016-10-12 20:45] LABS: ABG Base Excess 1.7 mmol/L; ABG HCO3 25 mmol/L (21-25); ABG PCO2 38 mmHg (35-45); ABG PH 7.44 (7.35-7.45); ABG PO2 312 mmHg (83-108)
[2016-10-12] MEDS: CHLORHEXIDINE GLUCONATE 15 ML CUP MUCOUS MEM SCH (20:58)
[2016-10-12] MEDS ORDERED: METOPROLOL TARTRATE 25 MG TAB PO SCH (21:00)
[2016-10-12] MEDS: SENNOSIDES-DOCUSATE SODIUM 1 EACH TAB PO SCH (21:01)
[2016-10-12] MEDS: MILRINONE-D5W PMX 20 MG in DEXTROSE/WATER 1 100ML.BAG IV SCH (21:03)
[2016-10-12] MEDS: PROPOFOL 1,000 MG/100 ML VIAL IV SCH ×2 (21:05→21:24)
[2016-10-12 21:23] LABS: Glucose,Whole Blood 190 mg/dL (75-99)
[2016-10-12 22:29] LABS: Glucose,Whole Blood 172 mg/dL (75-99)
[2016-10-12] MEDS: INSULIN LISPRO (humaLOG) 300 UNIT/3 ML VIAL SQ SCH ×2 (22:43→22:44)
[2016-10-12] MEDS: FUROSEMIDE 20 MG TAB PO SCH (22:43)
[2016-10-12] MEDS: LOSARTAN 50 MG TAB PO SCH (22:44)
[2016-10-12] MEDS: INSULIN GLARGINE 100 UNIT/ML 10 ML VIAL SQ SCH (22:44)
[2016-10-12] MEDS: SPIRONOLACTONE 25 MG TAB PO SCH (22:44)
[2016-10-12] MEDS: MUPIROCIN 2% OINT 22 GM TUBE NASAL SCH (22:44)
[2016-10-12 23:05] LABS: Glucose,Whole Blood 168 mg/dL (75-99)
[2016-10-13] MEDS: HEPARIN SODIUM,PORCINE 5,000 UNIT/ML 1 ML VIAL SQ SCH ×3 (01:00→18:11)
[2016-10-13 01:01] LABS: Glucose,Whole Blood 134 mg/dL (75-99)
[2016-10-13] MEDS: METOPROLOL TARTRATE 5 MG/5 ML VIAL IVP SCH ×2 (01:01→05:46)
[2016-10-13] MEDS: PROPOFOL 1,000 MG/100 ML VIAL IV SCH ×2 (02:40→20:34)
[2016-10-13 03:09] LABS: Glucose,Whole Blood 136 mg/dL (75-99)
[2016-10-13 04:21] LABS: Glucose,Whole Blood 149 mg/dL (75-99)
[2016-10-13 04:33] LABS: Basophils % (A) 0 %; CH 30.6; CHCM 36.1; Eosinophils # (A) 0.1 k/uL (0-0.7); Eosinophils % (A) 1 %; HCT 22.3 % (39.0-53.0); HDW 3.22; Luc # (Auto) 0.28; Luc % (Auto) 3; Lymphocytes % (A) 12 %; MCH 29.8 pg (25.0-35.0); MCHC 34.9 g/dL (31.0-37.0); MCV 85.3 fL (80.0-100.0); Mean Platelet Volume 8.3; Monocytes # (A) 0.6 k/uL (0-1.0); Monocytes % (A) 7 %; Neutrophils # (A) 6.5 k/uL (1.3-7.7); Neutrophils % (A) 77 %; RBC 2.62 m/uL (4.30-5.90); RDW 14.4 % (11.5-15.5); WBC 8.5 k/uL (3.8-10.6); WBC (Perox) 8.67
[2016-10-13 04:41] LABS: HGB 7.8 gm/dL (13.0-17.5)
[2016-10-13 04:42] LABS: INR 1.2 (<1.2)
[2016-10-13 05:08] LABS: ALT 52 U/L (21-72); AST 38 U/L (17-59); Alkaline Phosphatase 51 U/L (38-126); Anion Gap 6 mmol/L; Blood Urea Nitrogen 26 mg/dL (9-20); Calcium 8.3 mg/dL (8.4-10.2); Carbon Dioxide 28 mmol/L (22-30); Chloride 106 mmol/L (98-107); Glucose 137 mg/dL (74-99); Magnesium 2.2 mg/dL (1.6-2.3); Non-African American GFR(MDRD) >60 (>60 ml/min/1.73 sqM); Phosphorous 2.9 mg/dL (2.5-4.5); Potassium 3.7 mmol/L (3.5-5.1); Sodium 140 mmol/L (137-145); Total Bilirubin 0.5 mg/dL (0.2-1.3); Total Protein 4.3 g/dL (6.3-8.2)
[2016-10-13 06:00] LABS: Basophils % (A) 0 %; CH 30.7; CHCM 36.3; Eosinophils # (A) 0.1 k/uL (0-0.7); Eosinophils % (A) 1 %; HCT 21.9 % (39.0-53.0); HDW 3.17; HGB 7.6 gm/dL (13.0-17.5); Luc # (Auto) 0.19; Luc % (Auto) 3; Lymphocytes % (A) 13 %; MCH 29.6 pg (25.0-35.0); MCHC 34.8 g/dL (31.0-37.0); MCV 85.1 fL (80.0-100.0); Mean Platelet Volume 8.7; Monocytes # (A) 0.6 k/uL (0-1.0); Monocytes % (A) 8 %; Neutrophils # (A) 5.8 k/uL (1.3-7.7); Neutrophils % (A) 76 %; RBC 2.57 m/uL (4.30-5.90); RDW 14.3 % (11.5-15.5); WBC 7.6 k/uL (3.8-10.6); WBC (Perox) 7.94
[2016-10-13] MEDS ORDERED: POTASSIUM CHLORIDE ORAL LIQUID 40 MEQ/30 ML CUP NG-TUBE SCH (06:00)
[2016-10-13 06:11] LABS: Glucose,Whole Blood 145 mg/dL (75-99)
[2016-10-13] MEDS: INSULIN REGULAR 100 UNIT in SODIUM CHLORIDE 0.9% 100 ML IV SCH (06:11)
[2016-10-13 07:06] LABS: Glucose,Whole Blood 150 mg/dL (75-99)
--- NOTE | 2016-10-13 07:18 | XR ---
EXAMINATION TYPE: XR chest 1V portable DATE OF EXAM: 10/13/2016 COMPARISON: 10/12/2016 HISTORY: Line placement TECHNIQUE: Single frontal view of the chest is obtained. FINDINGS: Heart remains enlarged with postsurgical changes. Enteric tube, endotracheal tube, and lef t PICC are unchanged. Left-sided thoracostomy tube remains with no residual visualized left pneumotho rax. Scattered areas of subsegmental atelectasis are noted. IMPRESSION: Stable lines and tubes, cardiomegaly, post surgical changes of the chest and scattered s ubsegmental atelectasis.
[2016-10-13 08:04] LABS: Glucose,Whole Blood 149 mg/dL (75-99)
[2016-10-13] MEDS: ATORVASTATIN 40 MG TAB PO SCH (08:10)
[2016-10-13] MEDS: CLOPIDOGREL 75 MG TAB PO SCH (08:10)
[2016-10-13] MEDS: ASPIRIN 325 MG TAB PO SCH (08:12)
[2016-10-13] MEDS: DILTIAZEM ORAL 30 MG TAB PO SCH ×4 (08:12→21:56)
[2016-10-13] MEDS: METOPROLOL TARTRATE 12.5 MG TAB PO SCH ×2 (08:13→20:34)
--- NOTE | 2016-10-13 08:43 | P.PN ---
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 Family history of coronary artery disease. POD #3 urgent coronary artery bypass graft surgery 4 vessels with the left internal mammary artery to the left anterior descending artery, left radial artery to the ramus artery, reverse saphenous vein graft to the diagonal artery , reverse saphenous vein graft to posterior descending artery, endoscopic vein harvest left greater saphenous vein, endoscopic harvest of left radial artery, intraoperative transesophageal echocardiogram and epi-aortic scanning. Postoperative re-intubation for airway protection. Patient's currently laying in the bed in no acute distress. Was reintubated last night for airway protection as he was unable to control his secretions. Currently sedated on mechanical ventilation. There was concern for stroke as patient has had intermittent periods of lack of movement on the left side which has not been consistent. Patient has had 2 CT scans of the brain and neurology consult was placed. Objective - Vital Signs Vital signs: Vital Signs Temp 99.0 F 10/13/16 04:00 Pulse 91 10/13/16 07:00 Resp 18 10/13/16 07:00 BP 100/55 10/13/16 07:00 Pulse Ox 100 10/13/16 07:00 Intake & Output 10/12/16 10/13/16 10/13/16 18:59 06:59 18:59 Intake Total 600 506.701 108.217 Output Total 1135 590 55 Balance -535 -83.299 53.217 Weight 89.3 kg Intake: IV 300 240 20 CO/CI 40 Lactated Ringers 1,000 ml 260 240 20 @ 20 mls/hr IV .Q24H [facility] Rx#:[id number] Intake, IV Titration 300 206.701 88.217 Amount Clevidipine Butyrate 25 100 mg In Empty Bag 1 bag @ 1 MG/HR 2 mls/hr IV .Q24H [facility] Rx#:[id number] Insulin Regular 100 unit 97.733 In Sodium Chloride 0.9% 100 ml @ Per Protocol IV .Q0M [facility] Rx#:[id number] Potassium Chloride 10 meq 200 In Water For Injection 1 100ml.bag @ 100 mls/hr IVPB Q1H [facility] Rx#: [id number] Propofol 1,000 mg In 100 108.968 88.217 ml @ Titrate IV .Q0M [facility] Rx#:[id number] Oral 60 Output: Chest Tube Drainage 225 165 10 Bilateral Mediastinal 135 45 0 Chest Tube Left Lateral 90 120 10 Chest Drainage 30 15 0 left medial calf 30 15 0 Urine 880 410 45 Other: Voiding Method Indwelling Catheter Indwelling Catheter ABP, PAP, CO, CI - Last Documented Arterial Blood Pressure 120/58 Pulmonary Artery Pressure 27/13 Cardiac Output 9.2 Cardiac Index 4.5 - Constitutional General appearance: Present: no acute distress - Respiratory Details: Lungs sounds diminished bilaterally. Respirations even, nonlabored on mechanical ventilation. Current ventilator settings before meals mode, FiO2 50% , tidal volume 400, respiratory rate 22, 0 PEEP. Mediastinal chest tube to -20 cm wall suction, 25 mL serosanguineous output overnight, 170 mL last 24 hours. Left pleural chest tube to -20 cm wall suction, 80 mL serosanguineous output overnight, 150 mL in the last 24 hours. No air leaks present. - Cardiovascular Details: S1, S2 present. Regular rate and rhythm, normal sinus rhythm on telemetry. Sternum stable. A/V epicardial pacemaker wires present, connected to generator , VVI mode with backup rate 60 bpm. Right radial arterial line, left internal jugular triple-lumen central line present. Heart hugger in place. Teds/SCDs present. Palpable pulses bilaterally. Trace up her extremity edema. - Gastrointestinal Gastrointestinal Comment(s): Abdomen soft, nontender, nondistended. Active bowel sounds 4 quadrants. OG tube present. Tube feeding to be started. - Genitourinary Genitourinary Comment(s): Rosario present draining clear, yellow urine. Urine output 20-45 mL per hour overnight. - Integumentary Integumentary Comment(s): Anterior chest incision well approximated and covered with dry intact dressing. Left lower extremity EVH site well approximated, JOSE drain present with minimal drainage. Hematoma present to left lower extremity, marked, no increase in size, inherent outcome of surgery. Left radial harvest site well approximated with Dermabond - Neurologic Neurologic Comment(s): Sedated on mechanical ventilation. Does withdraw to painful stimuli. - Allied health notes Allied health notes reviewed: nursing - Labs CBC & Chem 7: 10/13/16 05:45 10/13/16 04:20 Labs: Abnormal Lab Results - Last 24 Hours (Table) 10/10/16 10/10/16 10/10/16 Range/Units 08:38 09:48 10:43 RBC (4.30-5.90) m/uL Hgb (13.0-17.5) gm/dL Hct (39.0-53.0) % Plt Count (150-450) k/uL INR (<1.2) ABG pH 7.34 L (7.35-7.45) ABG pCO2 46 H (35-45) mmHg ABG pO2 319 H 183 H (83-108) mmHg ABG HCO3 (21-25) mmol/L ABG Total CO2 26 H 26 H (19-24) mmol/L ABG O2 Saturation 99.9 H 97.2 H 99.7 H (94-97) % ABG Hematocrit (34.0-46.0) % ABG Potassium (3.4-4.5) mmol/L BUN (9-20) mg/dL Glucose (74-99) mg/dL POC Glucose (mg/dL) (75-99) mg/dL Calcium (8.4-10.2) mg/dL Total Protein (6.3-8.2) g/dL Albumin (3.5-5.0) g/dL Triglycerides (<150) mg/dL HDL Cholesterol (40-60) mg/dL Arterial Blood Potassium (3.4-4.5) mmol/L 10/10/16 10/10/16 10/10/16 Range/Units 11:12 11:39 12:12 RBC (4.30-5.90) m/uL Hgb (13.0-17.5) gm/dL Hct (39.0-53.0) % Plt Count (150-450) k/uL INR (<1.2) ABG pH 7.30 L (7.35-7.45) ABG pCO2 54 H (35-45) mmHg ABG pO2 252 H 187 H 203 H (83-108) mmHg ABG HCO3 26 H (21-25) mmol/L ABG Total CO2 28 H 26 H 26 H (19-24) mmol/L ABG O2 Saturation 99.8 H 99.6 H 99.7 H (94-97) % ABG Hematocrit 29 L 30 L 30 L (34.0-46.0) % ABG Potassium 5.0 H 4.9 H 4.6 H (3.4-4.5) mmol/L BUN (9-20) mg/dL Glucose (74-99) mg/dL POC Glucose (mg/dL) (75-99) mg/dL Calcium (8.4-10.2) mg/dL Total Protein (6.3-8.2) g/dL Albumin (3.5-5.0) g/dL Triglycerides (<150) mg/dL HDL Cholesterol (40-60) mg/dL Arterial Blood Potassium 5.0 H 4.9 H 4.6 H (3.4-4.5) mmol/L 10/10/16 10/10/16 10/10/16 Range/Units 12:43 13:35 14:47 RBC (4.30-5.90) m/uL Hgb (13.0-17.5) gm/dL Hct (39.0-53.0) % Plt Count (150-450) k/uL INR (<1.2) ABG pH 7.34 L (7.35-7.45) ABG pCO2 50 H (35-45) mmHg ABG pO2 287 H 238 H (83-108) mmHg ABG HCO3 26 H (21-25) mmol/L ABG Total CO2 27 H 26 H 26 H (19-24) mmol/L ABG O2 Saturation 99.9 H 99.8 H 97.1 H (94-97) % ABG Hematocrit 31 L 29 L 32 L (34.0-46.0) % ABG Potassium (3.4-4.5) mmol/L BUN (9-20) mg/dL Glucose (74-99) mg/dL POC Glucose (mg/dL) (75-99) mg/dL Calcium (8.4-10.2) mg/dL Total Protein (6.3-8.2) g/dL Albumin (3.5-5.0) g/dL Triglycerides (<150) mg/dL HDL Cholesterol (40-60) mg/dL Arterial Blood Potassium (3.4-4.5) mmol/L 10/12/16 10/12/16 10/12/16 Range/Units 04:45 08:21 08:58 RBC (4.30-5.90) m/uL Hgb (13.0-17.5) gm/dL Hct (39.0-53.0) % Plt Count (150-450) k/uL INR (<1.2) ABG pH (7.35-7.45) ABG pCO2 (35-45) mmHg ABG pO2 (83-108) mmHg ABG HCO3 (21-25) mmol/L ABG Total CO2 (19-24) mmol/L ABG O2 Saturation (94-97) % ABG Hematocrit (34.0-46.0) % ABG Potassium (3.4-4.5) mmol/L BUN (9-20) mg/dL Glucose (74-99) mg/dL POC Glucose (mg/dL) 193 H 187 H (75-99) mg/dL Calcium (8.4-10.2) mg/dL Total Protein (6.3-8.2) g/dL Albumin (3.5-5.0) g/dL Triglycerides 163 H (<150) mg/dL HDL Cholesterol 19 L (40-60) mg/dL Arterial Blood Potassium (3.4-4.5) mmol/L 10/12/16 10/12/16 10/12/16 Range/Units 10:10 12:05 13:02 RBC (4.30-5.90) m/uL Hgb (13.0-17.5) gm/dL Hct (39.0-53.0) % Plt Count (150-450) k/uL INR (<1.2) ABG pH (7.35-7.45) ABG pCO2 (35-45) mmHg ABG pO2 (83-108) mmHg ABG HCO3 (21-25) mmol/L ABG Total CO2 (19-24) mmol/L ABG O2 Saturation (94-97) % ABG Hematocrit (34.0-46.0) % ABG Potassium (3.4-4.5) mmol/L BUN (9-20) mg/dL Glucose (74-99) mg/dL POC Glucose (mg/dL) 190 H 184 H 166 H (75-99) mg/dL Calcium (8.4-10.2) mg/dL Total Protein (6.3-8.2) g/dL Albumin (3.5-5.0) g/dL Triglycerides (<150) mg/dL HDL Cholesterol (40-60) mg/dL Arterial Blood Potassium (3.4-4.5) mmol/L 10/12/16 10/12/16 10/12/16 Range/Units 15:00 16:35 17:41 RBC (4.30-5.90) m/uL Hgb (13.0-17.5) gm/dL Hct (39.0-53.0) % Plt Count (150-450) k/uL INR (<1.2) ABG pH (7.35-7.45) ABG pCO2 (35-45) mmHg ABG pO2 (83-108) mmHg ABG HCO3 (21-25) mmol/L ABG Total CO2 (19-24) mmol/L ABG O2 Saturation (94-97) % ABG Hematocrit (34.0-46.0) % ABG Potassium (3.4-4.5) mmol/L BUN (9-20) mg/dL Glucose (74-99) mg/dL POC Glucose (mg/dL) 144 H 123 H 132 H (75-99) mg/dL Calcium (8.4-10.2) mg/dL Total Protein (6.3-8.2) g/dL Albumin (3.5-5.0) g/dL Triglycerides (<150) mg/dL HDL Cholesterol (40-60) mg/dL Arterial Blood Potassium (3.4-4.5) mmol/L 10/12/16 10/12/16 10/12/16 Range/Units 17:47 20:03 20:33 RBC (4.30-5.90) m/uL Hgb (13.0-17.5) gm/dL Hct (39.0-53.0) % Plt Count (150-450) k/uL INR (<1.2) ABG pH 7.52 H (7.35-7.45) ABG pCO2 31 L (35-45) mmHg ABG pO2 60 L 312 H (83-108) mmHg ABG HCO3 (21-25) mmol/L ABG Total CO2 (19-24) mmol/L ABG O2 Saturation 100.0 H (94-97) % ABG Hematocrit (34.0-46.0) % ABG Potassium (3.4-4.5) mmol/L BUN (9-20) mg/dL Glucose (74-99) mg/dL POC Glucose (mg/dL) 193 H (75-99) mg/dL Calcium (8.4-10.2) mg/dL Total Protein (6.3-8.2) g/dL Albumin (3.5-5.0) g/dL Triglycerides (<150) mg/dL HDL Cholesterol (40-60) mg/dL Arterial Blood Potassium (3.4-4.5) mmol/L 10/12/16 10/12/16 10/12/16 Range/Units 21:22 22:26 23:03 RBC (4.30-5.90) m/uL Hgb (13.0-17.5) gm/dL Hct (39.0-53.0) % Plt Count (150-450) k/uL INR (<1.2) ABG pH (7.35-7.45) ABG pCO2 (35-45) mmHg ABG pO2 (83-108) mmHg ABG HCO3 (21-25) mmol/L ABG Total CO2 (19-24) mmol/L ABG O2 Saturation (94-97) % ABG Hematocrit (34.0-46.0) % ABG Potassium (3.4-4.5) mmol/L BUN (9-20) mg/dL Glucose (74-99) mg/dL POC Glucose (mg/dL) 190 H 172 H 168 H (75-99) mg/dL Calcium (8.4-10.2) mg/dL Total Protein (6.3-8.2) g/dL Albumin (3.5-5.0) g/dL Triglycerides (<150) mg/dL HDL Cholesterol (40-60) mg/dL Arterial Blood Potassium (3.4-4.5) mmol/L 10/13/16 10/13/16 10/13/16 Range/Units 00:58 03:06 04:19 RBC (4.30-5.90) m/uL Hgb (13.0-17.5) gm/dL Hct (39.0-53.0) % Plt Count (150-450) k/uL INR (<1.2) ABG pH (7.35-7.45) ABG pCO2 (35-45) mmHg ABG pO2 (83-108) mmHg ABG HCO3 (21-25) mmol/L ABG Total CO2 (19-24) mmol/L ABG O2 Saturation (94-97) % ABG Hematocrit (34.0-46.0) % ABG Potassium (3.4-4.5) mmol/L BUN (9-20) mg/dL Glucose (74-99) mg/dL POC Glucose (mg/dL) 134 H 136 H 149 H (75-99) mg/dL Calcium (8.4-10.2) mg/dL Total Protein (6.3-8.2) g/dL Albumin (3.5-5.0) g/dL Triglycerides (<150) mg/dL HDL Cholesterol (40-60) mg/dL Arterial Blood Potassium (3.4-4.5) mmol/L 10/13/16 10/13/16 10/13/16 Range/Units 04:20 04:20 04:20 RBC 2.62 L (4.30-5.90) m/uL Hgb 7.8 L D (13.0-17.5) gm/dL Hct 22.3 L (39.0-53.0) % Plt Count 118 L (150-450) k/uL INR 1.2 H (<1.2) ABG pH (7.35-7.45) ABG pCO2 (35-45) mmHg ABG pO2 (83-108) mmHg ABG HCO3 (21-25) mmol/L ABG Total CO2 (19-24) mmol/L ABG O2 Saturation (94-97) % ABG Hematocrit (34.0-46.0) % ABG Potassium (3.4-4.5) mmol/L BUN 26 H (9-20) mg/dL Glucose 137 H (74-99) mg/dL POC Glucose (mg/dL) (75-99) mg/dL Calcium 8.3 L (8.4-10.2) mg/dL Total Protein 4.3 L (6.3-8.2) g/dL Albumin 2.4 L (3.5-5.0) g/dL Triglycerides (<150) mg/dL HDL Cholesterol (40-60) mg/dL Arterial Blood Potassium (3.4-4.5) mmol/L 10/13/16 10/13/16 10/13/16 Range/Units 05:45 06:09 07:04 RBC 2.57 L (4.30-5.90) m/uL Hgb 7.6 L (13.0-17.5) gm/dL Hct 21.9 L (39.0-53.0) % Plt Count 116 L (150-450) k/uL INR (<1.2) ABG pH (7.35-7.45) ABG pCO2 (35-45) mmHg ABG pO2 (83-108) mmHg ABG HCO3 (21-25) mmol/L ABG Total CO2 (19-24) mmol/L ABG O2 Saturation (94-97) % ABG Hematocrit (34.0-46.0) % ABG Potassium (3.4-4.5) mmol/L BUN (9-20) mg/dL Glucose (74-99) mg/dL POC Glucose (mg/dL) 145 H 150 H (75-99) mg/dL Calcium (8.4-10.2) mg/dL Total Protein (6.3-8.2) g/dL Albumin (3.5-5.0) g/dL Triglycerides (<150) mg/dL HDL Cholesterol (40-60) mg/dL Arterial Blood Potassium (3.4-4.5) mmol/L 10/13/16 Range/Units 08:03 RBC (4.30-5.90) m/uL Hgb (13.0-17.5) gm/dL Hct (39.0-53.0) % Plt Count (150-450) k/uL INR (<1.2) ABG pH (7.35-7.45) ABG pCO2 (35-45) mmHg ABG pO2 (83-108) mmHg ABG HCO3 (21-25) mmol/L ABG Total CO2 (19-24) mmol/L ABG O2 Saturation (94-97) % ABG Hematocrit (34.0-46.0) % ABG Potassium (3.4-4.5) mmol/L BUN (9-20) mg/dL Glucose (74-99) mg/dL POC Glucose (mg/dL) 149 H (75-99) mg/dL Calcium (8.4-10.2) mg/dL Total Protein (6.3-8.2) g/dL Albumin (3.5-5.0) g/dL Triglycerides (<150) mg/dL HDL Cholesterol (40-60) mg/dL Arterial Blood Potassium (3.4-4.5) mmol/L - Imaging and Cardiology Chest x-ray: report reviewed, image reviewed Assessment and Plan (1) Tobacco dependence in remission Status: Acute (2) Recovering alcoholic in remission Status: Acute (3) Drug addiction in remission Status: Acute (4) Bipolar 1 disorder Status: Acute (5) CHF NYHA class III (symptoms with mildly strenuous activities) Status: Acute (6) COPD (chronic obstructive pulmonary disease) Status: Acute (7) Coronary artery disease Status: Acute (8) Hypertension Status: Acute (9) Non-STEMI (non-ST elevated myocardial infarction) Status: Acute (10) Uncontrolled type 2 diabetes mellitus Status: Acute Plan: 1. Continue aspirin, statin, Plavix, heparin subcu, caleb. Will maximize beta caleb therapy as tolerated. 2. Continue oral Cardizem for radial artery spasm prevention. 3. Ventilator management per pulmonary services. Wean O2 as tolerated. Daily CPAP trials. 4. Will initiate tube feeding. Dietitian consulted. 5. CT scans reviewed. Neurology consulted for intermittent left-sided weakness. Appreciate recommendations. 6. PT/OT ordered. 7. GI/DVT prophylaxis. 8. Will monitor daily labs, x-rays. 9. Keep Rosario catheter for strict accurate I and O's. 10. More recommendations as patient progresses. Time with Patient: Greater than 30
[2016-10-13] MEDS: IPRATROPIUM-ALBUTEROL 3 ML NEB INHALATION SCH ×4 (08:46→20:05)
--- NOTE | 2016-10-13 08:55 | US ---
EXAMINATION TYPE: US carotid duplex RT DATE OF EXAM: 10/13/2016 COMPARISON: US CLINICAL HISTORY: CVA. New onset CVA post CABG EXAM MEASUREMENTS: RIGHT: Peak Systolic Velocity (PSV) cm/sec ----- Right CCA: 73.5 ----- Right ICA: 59.2 ----- Right ECA: 109.9 ICA/CCA ratio: 0.8 RIGHT: End Diastole cm/sec ----- Right CCA: 24.1 ----- Right ICA: 29.6 ----- Right ECA: 8.9 VERTEBRALS (direction of flow): Right Vertebral: Antegrade No evidence of stenosis on the right. Left Carotid deferred due to line in left side of neck IMPRESSION: 1. No significant hemodynamic stenosis on the right. Left side not evaluated as discussed above.
[2016-10-13] MEDS: PANTOPRAZOLE 40 MG/10 ML VIAL IVP SCH (09:08)
[2016-10-13] MEDS: CHLORHEXIDINE GLUCONATE 15 ML CUP MUCOUS MEM SCH ×2 (09:08→22:51)
[2016-10-13 09:16] LABS: Glucose,Whole Blood 157 mg/dL (75-99)
[2016-10-13] MEDS ORDERED: NOREPINEPHRIN 4 MG-0.9% NS PMX 4 MG/250 ML ML IV ONE (09:29)
[2016-10-13] MEDS ORDERED: NOREPINEPHRIN 4 MG-0.9% NS PMX 4 MG/250 ML ML IV SCH (09:30)
[2016-10-13 09:57] LABS: Glucose,Whole Blood 158 mg/dL (75-99)
--- NOTE | 2016-10-13 10:14 | P.PN ---
Subjective Interval history 10/11/16- patient is being seen examined and evaluated on the intensive care unit. Patient has postop day 1 after CABG 4 with cardiothoracic surgeon. Patient was successfully extubated approximately for 20 this morning. Currently the patient is resting up in bed on 6 L of supplemental oxygen. Patient appears somewhat lethargic. Currently he has a left chest tube as well as mediastinal chest tube. Currently he has been AV epicardial pacemaker connected to a generator with a VVI mode with backup rate of 60 BPM. He has a right radial art line, right IJ. Per the nursing staff he has an ineffective cough as well as an ineffective swallow, he had some difficulty with swallowing earlier they're going to reattempt a swallow evaluation again this afternoon. Patient does have some shortness of breath with exertion, is noted to have some lethargy. 10/12/16- see Dr. Ramírez notes 10/13/16- patient being seen examined and evaluated in the intensive care unit. The patient was reintubated yesterday, for increased secretions as well as hyperventilation. Currently the patient is on assist control mode with a respiratory rate of 22, tidal volume 400, FiO2 50% and 0 PEEP. Continues on propofol for sedation. Tube feeds were also initiated yesterday and the patient is tolerating these well. Patient does have a left-sided internal jugular triple-lumen catheter as well as a right arterial line. Patient continues to exhibit left-sided neglect and neurology is on consult for possible stroke. Chest x-ray from this morning was reviewed and shows stable lines and tubes, cardiomegaly, postsurgical changes of the chest and scattered subsegmental atelectasis. Objective - Vital Signs Vital signs: Vital Signs Temp 99.0 F 10/13/16 04:00 Pulse 81 10/13/16 08:58 Resp 18 10/13/16 07:00 BP 100/55 10/13/16 07:00 Pulse Ox 100 10/13/16 07:00 Intake & Output 10/12/16 10/13/16 10/13/16 18:59 06:59 18:59 Intake Total 600 506.701 108.217 Output Total 1135 590 55 Balance -535 -83.299 53.217 Weight 89.3 kg 89.3 kg Intake: IV 300 240 20 CO/CI 40 Lactated Ringers 1,000 ml 260 240 20 @ 20 mls/hr IV .Q24H [facility] Rx#:[id number] Intake, IV Titration 300 206.701 88.217 Amount Clevidipine Butyrate 25 100 mg In Empty Bag 1 bag @ 1 MG/HR 2 mls/hr IV .Q24H [facility] Rx#:[id number] Insulin Regular 100 unit 97.733 In Sodium Chloride 0.9% 100 ml @ Per Protocol IV .Q0M [facility] Rx#:[id number] Potassium Chloride 10 meq 200 In Water For Injection 1 100ml.bag @ 100 mls/hr IVPB Q1H [facility] Rx#: [id number] Propofol 1,000 mg In 100 108.968 88.217 ml @ Titrate IV .Q0M [facility] Rx#:[id number] Oral 60 Output: Chest Tube Drainage 225 165 10 Bilateral Mediastinal 135 45 0 Chest Tube Left Lateral 90 120 10 Chest Drainage 30 15 0 left medial calf 30 15 0 Urine 880 410 45 Other: Voiding Method Indwelling Catheter Indwelling Catheter ABP, PAP, CO, CI - Last Documented Arterial Blood Pressure 120/58 Pulmonary Artery Pressure 27/13 Cardiac Output 9.2 Cardiac Index 4.5 - Exam GENERAL EXAM: On mechanical ventilation with propofol for sedation HEAD: Normocephalic. EYES: Normal reaction of pupils, equal size. NOSE: Clear with pink turbinates. THROAT: No erythema or exudates. NECK: No masses, no JVD. CHEST: No chest wall deformity. The anterior chest wall incision with dressing clean dry and intact. LUNGS: Lungs are noted to be coarse throughout with some fine expiratory wheezing noted. Bases diminished. CVS: S1 and S2 normal with no audible mumurs, regular rhythm. ABDOMEN: No hepatosplenomegaly, normal bowel sounds, no guarding or rigidity. EXTREMITIES: No edema noted, pedal pulses palpable. Left lower extremity site clean dry and intact, JOSE drain present with minimal drainage, left radial harvest site clean dry and intact. SKIN: No rashes CENTRAL NERVOUS SYSTEM: On mechanical ventilation with propofol for sedation, withdraws from painful stimuli, during sedation holiday the patient is noted to have a grade 2 out of 5 upper extremity neglect right side remains 5 out of 5. - Labs CBC & Chem 7: 10/13/16 05:45 10/13/16 04:20 Labs: Abnormal Lab Results - Last 24 Hours (Table) 10/10/16 10/10/16 10/10/16 Range/Units 12:12 12:43 13:35 RBC (4.30-5.90) m/uL Hgb (13.0-17.5) gm/dL Hct (39.0-53.0) % Plt Count (150-450) k/uL INR (<1.2) ABG pH 7.34 L (7.35-7.45) ABG pCO2 50 H (35-45) mmHg ABG pO2 203 H 287 H 238 H (83-108) mmHg ABG HCO3 26 H (21-25) mmol/L ABG Total CO2 26 H 27 H 26 H (19-24) mmol/L ABG O2 Saturation 99.7 H 99.9 H 99.8 H (94-97) % ABG Hematocrit 30 L 31 L 29 L (34.0-46.0) % ABG Potassium 4.6 H (3.4-4.5) mmol/L BUN (9-20) mg/dL Glucose (74-99) mg/dL POC Glucose (mg/dL) (75-99) mg/dL Calcium (8.4-10.2) mg/dL Total Protein (6.3-8.2) g/dL Albumin (3.5-5.0) g/dL Triglycerides (<150) mg/dL HDL Cholesterol (40-60) mg/dL Arterial Blood Potassium 4.6 H (3.4-4.5) mmol/L 10/10/16 10/12/16 10/12/16 Range/Units 14:47 04:45 10:10 RBC (4.30-5.90) m/uL Hgb (13.0-17.5) gm/dL Hct (39.0-53.0) % Plt Count (150-450) k/uL INR (<1.2) ABG pH (7.35-7.45) ABG pCO2 (35-45) mmHg ABG pO2 (83-108) mmHg ABG HCO3 (21-25) mmol/L ABG Total CO2 26 H (19-24) mmol/L ABG O2 Saturation 97.1 H (94-97) % ABG Hematocrit 32 L (34.0-46.0) % ABG Potassium (3.4-4.5) mmol/L BUN (9-20) mg/dL Glucose (74-99) mg/dL POC Glucose (mg/dL) 190 H (75-99) mg/dL Calcium (8.4-10.2) mg/dL Total Protein (6.3-8.2) g/dL Albumin (3.5-5.0) g/dL Triglycerides 163 H (<150) mg/dL HDL Cholesterol 19 L (40-60) mg/dL Arterial Blood Potassium (3.4-4.5) mmol/L 10/12/16 10/12/16 10/12/16 Range/Units 12:05 13:02 15:00 RBC (4.30-5.90) m/uL Hgb (13.0-17.5) gm/dL Hct (39.0-53.0) % Plt Count (150-450) k/uL INR (<1.2) ABG pH (7.35-7.45) ABG pCO2 (35-45) mmHg ABG pO2 (83-108) mmHg ABG HCO3 (21-25) mmol/L ABG Total CO2 (19-24) mmol/L ABG O2 Saturation (94-97) % ABG Hematocrit (34.0-46.0) % ABG Potassium (3.4-4.5) mmol/L BUN (9-20) mg/dL Glucose (74-99) mg/dL POC Glucose (mg/dL) 184 H 166 H 144 H (75-99) mg/dL Calcium (8.4-10.2) mg/dL Total Protein (6.3-8.2) g/dL Albumin (3.5-5.0) g/dL Triglycerides (<150) mg/dL HDL Cholesterol (40-60) mg/dL Arterial Blood Potassium (3.4-4.5) mmol/L 10/12/16 10/12/16 10/12/16 Range/Units 16:35 17:41 17:47 RBC (4.30-5.90) m/uL Hgb (13.0-17.5) gm/dL Hct (39.0-53.0) % Plt Count (150-450) k/uL INR (<1.2) ABG pH 7.52 H (7.35-7.45) ABG pCO2 31 L (35-45) mmHg ABG pO2 60 L (83-108) mmHg ABG HCO3 (21-25) mmol/L ABG Total CO2 (19-24) mmol/L ABG O2 Saturation (94-97) % ABG Hematocrit (34.0-46.0) % ABG Potassium (3.4-4.5) mmol/L BUN (9-20) mg/dL Glucose (74-99) mg/dL POC Glucose (mg/dL) 123 H 132 H (75-99) mg/dL Calcium (8.4-10.2) mg/dL Total Protein (6.3-8.2) g/dL Albumin (3.5-5.0) g/dL Triglycerides (<150) mg/dL HDL Cholesterol (40-60) mg/dL Arterial Blood Potassium (3.4-4.5) mmol/L 10/12/16 10/12/16 10/12/16 Range/Units 20:03 20:33 21:22 RBC (4.30-5.90) m/uL Hgb (13.0-17.5) gm/dL Hct (39.0-53.0) % Plt Count (150-450) k/uL INR (<1.2) ABG pH (7.35-7.45) ABG pCO2 (35-45) mmHg ABG pO2 312 H (83-108) mmHg ABG HCO3 (21-25) mmol/L ABG Total CO2 (19-24) mmol/L ABG O2 Saturation 100.0 H (94-97) % ABG Hematocrit (34.0-46.0) % ABG Potassium (3.4-4.5) mmol/L BUN (9-20) mg/dL Glucose (74-99) mg/dL POC Glucose (mg/dL) 193 H 190 H (75-99) mg/dL Calcium (8.4-10.2) mg/dL Total Protein (6.3-8.2) g/dL Albumin (3.5-5.0) g/dL Triglycerides (<150) mg/dL HDL Cholesterol (40-60) mg/dL Arterial Blood Potassium (3.4-4.5) mmol/L 10/12/16 10/12/16 10/13/16 Range/Units 22:26 23:03 00:58 RBC (4.30-5.90) m/uL Hgb (13.0-17.5) gm/dL Hct (39.0-53.0) % Plt Count (150-450) k/uL INR (<1.2) ABG pH (7.35-7.45) ABG pCO2 (35-45) mmHg ABG pO2 (83-108) mmHg ABG HCO3 (21-25) mmol/L ABG Total CO2 (19-24) mmol/L ABG O2 Saturation (94-97) % ABG Hematocrit (34.0-46.0) % ABG Potassium (3.4-4.5) mmol/L BUN (9-20) mg/dL Glucose (74-99) mg/dL POC Glucose (mg/dL) 172 H 168 H 134 H (75-99) mg/dL Calcium (8.4-10.2) mg/dL Total Protein (6.3-8.2) g/dL Albumin (3.5-5.0) g/dL Triglycerides (<150) mg/dL HDL Cholesterol (40-60) mg/dL Arterial Blood Potassium (3.4-4.5) mmol/L 10/13/16 10/13/16 10/13/16 Range/Units 03:06 04:19 04:20 RBC (4.30-5.90) m/uL Hgb (13.0-17.5) gm/dL Hct (39.0-53.0) % Plt Count (150-450) k/uL INR (<1.2) ABG pH (7.35-7.45) ABG pCO2 (35-45) mmHg ABG pO2 (83-108) mmHg ABG HCO3 (21-25) mmol/L ABG Total CO2 (19-24) mmol/L ABG O2 Saturation (94-97) % ABG Hematocrit (34.0-46.0) % ABG Potassium (3.4-4.5) mmol/L BUN 26 H (9-20) mg/dL Glucose 137 H (74-99) mg/dL POC Glucose (mg/dL) 136 H 149 H (75-99) mg/dL Calcium 8.3 L (8.4-10.2) mg/dL Total Protein 4.3 L (6.3-8.2) g/dL Albumin 2.4 L (3.5-5.0) g/dL Triglycerides (<150) mg/dL HDL Cholesterol (40-60) mg/dL Arterial Blood Potassium (3.4-4.5) mmol/L 10/13/16 10/13/16 10/13/16 Range/Units 04:20 04:20 05:45 RBC 2.62 L 2.57 L (4.30-5.90) m/uL Hgb 7.8 L D 7.6 L (13.0-17.5) gm/dL Hct 22.3 L 21.9 L (39.0-53.0) % Plt Count 118 L 116 L (150-450) k/uL INR 1.2 H (<1.2) ABG pH (7.35-7.45) ABG pCO2 (35-45) mmHg ABG pO2 (83-108) mmHg ABG HCO3 (21-25) mmol/L ABG Total CO2 (19-24) mmol/L ABG O2 Saturation (94-97) % ABG Hematocrit (34.0-46.0) % ABG Potassium (3.4-4.5) mmol/L BUN (9-20) mg/dL Glucose (74-99) mg/dL POC Glucose (mg/dL) (75-99) mg/dL Calcium (8.4-10.2) mg/dL Total Protein (6.3-8.2) g/dL Albumin (3.5-5.0) g/dL Triglycerides (<150) mg/dL HDL Cholesterol (40-60) mg/dL Arterial Blood Potassium (3.4-4.5) mmol/L 10/13/16 10/13/16 10/13/16 Range/Units 06:09 07:04 08:03 RBC (4.30-5.90) m/uL Hgb (13.0-17.5) gm/dL Hct (39.0-53.0) % Plt Count (150-450) k/uL INR (<1.2) ABG pH (7.35-7.45) ABG pCO2 (35-45) mmHg ABG pO2 (83-108) mmHg ABG HCO3 (21-25) mmol/L ABG Total CO2 (19-24) mmol/L ABG O2 Saturation (94-97) % ABG Hematocrit (34.0-46.0) % ABG Potassium (3.4-4.5) mmol/L BUN (9-20) mg/dL Glucose (74-99) mg/dL POC Glucose (mg/dL) 145 H 150 H 149 H (75-99) mg/dL Calcium (8.4-10.2) mg/dL Total Protein (6.3-8.2) g/dL Albumin (3.5-5.0) g/dL Triglycerides (<150) mg/dL HDL Cholesterol (40-60) mg/dL Arterial Blood Potassium (3.4-4.5) mmol/L 10/13/16 10/13/16 Range/Units 09:14 09:55 RBC (4.30-5.90) m/uL Hgb (13.0-17.5) gm/dL Hct (39.0-53.0) % Plt Count (150-450) k/uL INR (<1.2) ABG pH (7.35-7.45) ABG pCO2 (35-45) mmHg ABG pO2 (83-108) mmHg ABG HCO3 (21-25) mmol/L ABG Total CO2 (19-24) mmol/L ABG O2 Saturation (94-97) % ABG Hematocrit (34.0-46.0) % ABG Potassium (3.4-4.5) mmol/L BUN (9-20) mg/dL Glucose (74-99) mg/dL POC Glucose (mg/dL) 157 H 158 H (75-99) mg/dL Calcium (8.4-10.2) mg/dL Total Protein (6.3-8.2) g/dL Albumin (3.5-5.0) g/dL Triglycerides (<150) mg/dL HDL Cholesterol (40-60) mg/dL Arterial Blood Potassium (3.4-4.5) mmol/L Microbiology - Last 24 Hours (Table) 10/12/16 19:25 Gram Stain - Preliminary Sputum Assessment and Plan Plan: Assessment Acute hypoxic respiratory failure Probable CVA with left-sided hemiparesis, cannot be excluded, neurology on consult. 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 Patient should remain on mechanical ventilation today with his sedation holiday. Medications have been reviewed and will be continued as ordered. Continue with pulmonary hygiene, , and supportive care. . Supplemental oxygen to maintain oxygen saturations of 92% or better. Continue nebulizer treatments. GI and DVT prophylaxis. We will continue to monitor labs/results and adjust treatment as necessary. Encourage increase in activity as tolerated. Further recommendations pending. I performed an examination of the patient and discussed their management with the nurse practitioner. I have reviewed the nurse practitioner's note and agree with the documented findings and plan of care.
[2016-10-13 11:04] LABS: Glucose,Whole Blood 160 mg/dL (75-99)
--- NOTE | 2016-10-13 11:20 | EEG ---
ELECTROENCEPHALOGRAM REPORT Date of Service: DATE OF SERVICE: 10/12/2016 REASON FOR TESTING: Stroke. DESCRIPTION OF PROCEDURE: This EEG was performed using a 21-channel digital electroencephalograph, following international 10 to 20 system. DESCRIPTION OF RECORDING: From the beginning of the tracing, and with the patient's eyes closed, the background rhythm was mostly consisting of 7 Hz theta frequency in the posterior occipital leads. No obvious asymmetry is seen. Photic stimulation was performed with a minimal driving response seen. No pathological waves were elicited. Hyperventilation was not performed. The patient remains awake throughout the tracing. No epileptiform discharges were seen. His EKG lead showed a tachycardic rate with a normal rhythm. INTERPRETATION: This awake EEG is abnormal due to the presence of generalized slowing of the background rhythm, mostly in the theta range. This is consistent with mild encephalopathy. No epileptiform discharges were seen. The absence of epileptiform discharges does not rule out the diagnosis of epilepsy, therefore clinical correlation is recommended. MMARVIND / DOMI: [id number] /
[2016-10-13 12:24] LABS: Glucose,Whole Blood 180 mg/dL (75-99)
[2016-10-13 13:55] LABS: Glucose,Whole Blood 170 mg/dL (75-99)
[2016-10-13 15:56] LABS: Glucose,Whole Blood 175 mg/dL (75-99)
--- NOTE | 2016-10-13 17:45 | PN ---
PROGRESS NOTE Date of Service: 50-year-old, white male, status post bypass graft. He had an EEG today. He had left- sided weakness. Possibility of stroke being worked up. Status post CABG. He is on aspirin, Plavix, Atorvastatin, Diltiazem, beta blockers. Musculoskeletal cannot open and close his left arm, cannot move it, his right hand he can raise shake hands. He is very lethargic but does wake up and talk. ASSESSMENT: 1. Probable cerebrovascular accident. 2.. Multivessel coronary artery disease status post CABG. 1. Hypertension. 2. Insulin-dependent diabetes mellitus. ICU time is 30 minutes. Temp 98.1, pulse 111, respiratory rate 25-32, blood pressure 120s/70s, O2 98% on room air. Remains on Cardizem drip. Hemoglobin was 9.5. White count is 13. ABGs are reviewed. Prognosis guarded. Wait for neurology consultation. Possible MRI to rule out any CVA. MMODL / IJN: [id number] /
[2016-10-13] MEDS: LACTATED RINGERS 1,000 ML IV SCH (18:11)
[2016-10-13 18:29] LABS: Glucose,Whole Blood 179 mg/dL (75-99)
--- NOTE | 2016-10-13 18:47 | P.PN ---
Subjective Principal diagnosis: lleft-sided weakness, rule out CVA Patient is a 50-year-old male being followed by neurology who is status post bypass graft 4. Patient had left-sided weakness post procedure. Patient reportedly maintained difficulty moving the left upper extremity and neurology was consulted yesterday. EEG was ordered and obtained. Patient is currently on aspirin, Plavix, atorvastatin, diltiazem, beta blockers. Patient is currently in the ICU on ventilator and is sedated, resting in no acute distress. Nursing staff reports that patient had difficulty moving his left upper extremity status post surgery. CT of the brain was conducted October 11, October 12 and will be repeated again tomorrow. Supervising physician examined the patient yesterday. Objective - Vital Signs Vital signs: Vital Signs Temp 99.5 F 10/13/16 16:00 Pulse 92 10/13/16 16:00 Resp 22 10/13/16 16:00 BP 100/55 10/13/16 08:00 Pulse Ox 96 10/13/16 16:00 Intake & Output 10/12/16 10/13/16 10/13/16 18:59 06:59 18:59 Intake Total 600 506.701 568.217 Output Total 1135 590 475 Balance -535 -83.299 93.217 Weight 89.3 kg 89.3 kg Intake: IV 300 240 200 CO/CI 40 Lactated Ringers 1,000 ml 260 240 200 @ 20 mls/hr IV .Q24H [facility] Rx#:[id number] Intake, IV Titration 300 206.701 88.217 Amount Clevidipine Butyrate 25 100 mg In Empty Bag 1 bag @ 1 MG/HR 2 mls/hr IV .Q24H [facility] Rx#:[id number] Insulin Regular 100 unit 97.733 In Sodium Chloride 0.9% 100 ml @ Per Protocol IV .Q0M [facility] Rx#:[id number] Potassium Chloride 10 meq 200 In Water For Injection 1 100ml.bag @ 100 mls/hr IVPB Q1H [facility] Rx#: [id number] Propofol 1,000 mg In 100 108.968 88.217 ml @ Titrate IV .Q0M [facility] Rx#:[id number] Oral 60 Tube Feeding 220 Other 60 Output: Chest Tube Drainage 225 165 50 Bilateral Mediastinal 135 45 20 Chest Tube Left Lateral 90 120 30 Chest Drainage 30 15 0 left medial calf 30 15 0 Urine 880 410 425 Other: Voiding Method Indwelling Catheter Indwelling Catheter Indwelling Catheter ABP, PAP, CO, CI - Last Documented Arterial Blood Pressure 134/57 Pulmonary Artery Pressure 27/13 Cardiac Output 9.2 Cardiac Index 4.5 - Exam physical exam was limited. Patient is sedated on ventilator in the ICU. Constitutional: AOx1, sedated HEENT: NC/AT, no facial asymmetry is seen. Throat: Supple, no masses Respiratory: ventilator in use Cardiac: Regular rate and Rhythm Neurological: no seizure activity noted on physical exam. Integementary: no rash, no erythema Psychiatric: mood and affect appropriate - Labs CBC & Chem 7: 10/13/16 05:45 10/13/16 04:20 Labs: Abnormal Lab Results - Last 24 Hours (Table) 10/12/16 10/12/16 10/12/16 Range/Units 20:03 20:33 21:22 RBC (4.30-5.90) m/uL Hgb (13.0-17.5) gm/dL Hct (39.0-53.0) % Plt Count (150-450) k/uL INR (<1.2) ABG pO2 312 H (83-108) mmHg ABG O2 Saturation 100.0 H (94-97) % BUN (9-20) mg/dL Glucose (74-99) mg/dL POC Glucose (mg/dL) 193 H 190 H (75-99) mg/dL Calcium (8.4-10.2) mg/dL Total Protein (6.3-8.2) g/dL Albumin (3.5-5.0) g/dL 10/12/16 10/12/16 10/13/16 Range/Units 22:26 23:03 00:58 RBC (4.30-5.90) m/uL Hgb (13.0-17.5) gm/dL Hct (39.0-53.0) % Plt Count (150-450) k/uL INR (<1.2) ABG pO2 (83-108) mmHg ABG O2 Saturation (94-97) % BUN (9-20) mg/dL Glucose (74-99) mg/dL POC Glucose (mg/dL) 172 H 168 H 134 H (75-99) mg/dL Calcium (8.4-10.2) mg/dL Total Protein (6.3-8.2) g/dL Albumin (3.5-5.0) g/dL 10/13/16 10/13/16 10/13/16 Range/Units 03:06 04:19 04:20 RBC (4.30-5.90) m/uL Hgb (13.0-17.5) gm/dL Hct (39.0-53.0) % Plt Count (150-450) k/uL INR (<1.2) ABG pO2 (83-108) mmHg ABG O2 Saturation (94-97) % BUN 26 H (9-20) mg/dL Glucose 137 H (74-99) mg/dL POC Glucose (mg/dL) 136 H 149 H (75-99) mg/dL Calcium 8.3 L (8.4-10.2) mg/dL Total Protein 4.3 L (6.3-8.2) g/dL Albumin 2.4 L (3.5-5.0) g/dL 10/13/16 10/13/16 10/13/16 Range/Units 04:20 04:20 05:45 RBC 2.62 L 2.57 L (4.30-5.90) m/uL Hgb 7.8 L D 7.6 L (13.0-17.5) gm/dL Hct 22.3 L 21.9 L (39.0-53.0) % Plt Count 118 L 116 L (150-450) k/uL INR 1.2 H (<1.2) ABG pO2 (83-108) mmHg ABG O2 Saturation (94-97) % BUN (9-20) mg/dL Glucose (74-99) mg/dL POC Glucose (mg/dL) (75-99) mg/dL Calcium (8.4-10.2) mg/dL Total Protein (6.3-8.2) g/dL Albumin (3.5-5.0) g/dL 10/13/16 10/13/16 10/13/16 Range/Units 06:09 07:04 08:03 RBC (4.30-5.90) m/uL Hgb (13.0-17.5) gm/dL Hct (39.0-53.0) % Plt Count (150-450) k/uL INR (<1.2) ABG pO2 (83-108) mmHg ABG O2 Saturation (94-97) % BUN (9-20) mg/dL Glucose (74-99) mg/dL POC Glucose (mg/dL) 145 H 150 H 149 H (75-99) mg/dL Calcium (8.4-10.2) mg/dL Total Protein (6.3-8.2) g/dL Albumin (3.5-5.0) g/dL 10/13/16 10/13/16 10/13/16 Range/Units 09:14 09:55 11:02 RBC (4.30-5.90) m/uL Hgb (13.0-17.5) gm/dL Hct (39.0-53.0) % Plt Count (150-450) k/uL INR (<1.2) ABG pO2 (83-108) mmHg ABG O2 Saturation (94-97) % BUN (9-20) mg/dL Glucose (74-99) mg/dL POC Glucose (mg/dL) 157 H 158 H 160 H (75-99) mg/dL Calcium (8.4-10.2) mg/dL Total Protein (6.3-8.2) g/dL Albumin (3.5-5.0) g/dL 10/13/16 10/13/16 10/13/16 Range/Units 12:23 13:54 15:55 RBC (4.30-5.90) m/uL Hgb (13.0-17.5) gm/dL Hct (39.0-53.0) % Plt Count (150-450) k/uL INR (<1.2) ABG pO2 (83-108) mmHg ABG O2 Saturation (94-97) % BUN (9-20) mg/dL Glucose (74-99) mg/dL POC Glucose (mg/dL) 180 H 170 H 175 H (75-99) mg/dL Calcium (8.4-10.2) mg/dL Total Protein (6.3-8.2) g/dL Albumin (3.5-5.0) g/dL 10/13/16 Range/Units 18:27 RBC (4.30-5.90) m/uL Hgb (13.0-17.5) gm/dL Hct (39.0-53.0) % Plt Count (150-450) k/uL INR (<1.2) ABG pO2 (83-108) mmHg ABG O2 Saturation (94-97) % BUN (9-20) mg/dL Glucose (74-99) mg/dL POC Glucose (mg/dL) 179 H (75-99) mg/dL Calcium (8.4-10.2) mg/dL Total Protein (6.3-8.2) g/dL Albumin (3.5-5.0) g/dL Microbiology - Last 24 Hours (Table) 10/12/16 19:25 Gram Stain - Preliminary Sputum - Imaging and Cardiology CT Scan - head: report reviewed, other (no acute intracranial hemorrhage or midline shift is seen. Mild diffuse cerebral atrophy and moderate to severe nonspecific white matter changes redemonstrated without significant change from prior study. Areas of acute infarct or difficult to entirely exclude in the broad differential. No significant change from prior study is noted. ) Assessment and Plan (1) Acute left-sided weakness Status: Acute (2) Coronary artery disease Status: Acute Plan: 1. Acute left-sided weakness: Patient has a complex medical history involving psychiatric disorder as well as coronary artery disease with recent CABG 4. Left-sided weakness will be reassessed once the patient is no longer sedated. At this time the patient's EEG is abnormal and noted slowing background rhythm in the theta range. Patient 's carotid Dopplers noted no hemodynamically significant stenosis on the right, left could not be completely evaluated due to a line. CT of the brain 2 as noted in imaging comments previously. Continue with current treatment regimen, updated CT of the brain will be ordered for tomorrow morning. Continue neuro checks, DVT prophylaxis and notify neurology with any neurological status changes. Status: Neurology will continue to follow and provide further information is needed or warranted. Feel free to contact our office with any questions I discussed the patient's pertinent medical information with Dr. Maloney. He agrees with the plan of care as implemented.
[2016-10-13] MEDS ORDERED: ACETAMINOPHEN IV (For NPO) 1,000 MG in EMPTY BAG 1 BAG IVPB ONE (20:06)
[2016-10-13 20:32] LABS: Glucose,Whole Blood 187 mg/dL (75-99)
[2016-10-13] MEDS: MILRINONE-D5W PMX 20 MG in DEXTROSE/WATER 1 100ML.BAG IV SCH (20:35)
[2016-10-13] MEDS: SENNOSIDES-DOCUSATE SODIUM 1 EACH TAB PO SCH (20:37)
[2016-10-13 22:48] LABS: Glucose,Whole Blood 195 mg/dL (75-99)
[2016-10-14] MEDS: HEPARIN SODIUM,PORCINE 5,000 UNIT/ML 1 ML VIAL SQ SCH ×4 (00:04→23:44)
[2016-10-14 00:07] LABS: Glucose,Whole Blood 189 mg/dL (75-99)
[2016-10-14 02:14] LABS: Glucose,Whole Blood 168 mg/dL (75-99)
[2016-10-14] MEDS: PROPOFOL 1,000 MG/100 ML VIAL IV SCH ×4 (02:18→23:43)
[2016-10-14] MEDS: PANTOPRAZOLE 40 MG TABLET PO SCH (03:19)
[2016-10-14 04:14] LABS: Glucose,Whole Blood 152 mg/dL (75-99)
[2016-10-14 04:33] LABS: INR 1.2 (<1.2); Prothrombin Time 12.1 sec (9.0-12.0)
[2016-10-14 04:53] LABS: Ionized Calcium 4.8 mg/dL (4.5-5.3)
[2016-10-14 04:59] LABS: Basophils % (A) 0 %; CH 30.7; CHCM 35.9; Eosinophils # (A) 0.1 k/uL (0-0.7); Eosinophils % (A) 1 %; HCT 21.8 % (39.0-53.0); HDW 3.35; HGB 7.5 gm/dL (13.0-17.5); Luc # (Auto) 0.12; Luc % (Auto) 1; Lymphocytes # (A) 0.6 k/uL (1.0-4.8); Lymphocytes % (A) 7 %; MCH 29.4 pg (25.0-35.0); MCHC 34.2 g/dL (31.0-37.0); MCV 86.1 fL (80.0-100.0); Mean Platelet Volume 7.9; Monocytes # (A) 0.5 k/uL (0-1.0); Monocytes % (A) 5 %; Neutrophils # (A) 7.6 k/uL (1.3-7.7); Neutrophils % (A) 85 %; RBC 2.53 m/uL (4.30-5.90); RDW 14.6 % (11.5-15.5); WBC 8.9 k/uL (3.8-10.6); WBC (Perox) 9.37
[2016-10-14 05:07] LABS: ALT 46 U/L (21-72); AST 21 U/L (17-59); Alkaline Phosphatase 77 U/L (38-126); Anion Gap 7 mmol/L; Blood Urea Nitrogen 25 mg/dL (9-20); Calcium 8.3 mg/dL (8.4-10.2); Carbon Dioxide 27 mmol/L (22-30); Chloride 109 mmol/L (98-107); Glucose 182 mg/dL (74-99); Magnesium 2.1 mg/dL (1.6-2.3); Non-African American GFR(MDRD) >60 (>60 ml/min/1.73 sqM); Phosphorous 3.4 mg/dL (2.5-4.5); Potassium 3.3 mmol/L (3.5-5.1); Sodium 143 mmol/L (137-145); Total Bilirubin 0.4 mg/dL (0.2-1.3); Total Protein 4.3 g/dL (6.3-8.2)
[2016-10-14 05:37] LABS: ABG HCO3 27 mmol/L (21-25); ABG PCO2 37 mmHg (35-45); ABG PH 7.47 (7.35-7.45); ABG PO2 80 mmHg (83-108)
[2016-10-14 05:38] LABS: ABG Base Excess 3.2 mmol/L; ABG TCO2 10 mmol/L (19-24)
[2016-10-14] MEDS: POTASSIUM CHLORIDE ORAL LIQUID 40 MEQ/30 ML CUP NG-TUBE SCH ×4 (06:05→18:53)
[2016-10-14] MEDS: INSULIN REGULAR 100 UNIT in SODIUM CHLORIDE 0.9% 100 ML IV SCH ×2 (06:12→23:42)
[2016-10-14 06:15] LABS: Glucose,Whole Blood 208 mg/dL (75-99)
[2016-10-14] MEDS: IPRATROPIUM-ALBUTEROL 3 ML NEB INHALATION SCH ×4 (08:02→19:29)
--- NOTE | 2016-10-14 08:27 | XR ---
EXAMINATION TYPE: XR chest 1V portable DATE OF EXAM: 10/14/2016 COMPARISON: 10/13/2016 INDICATION: Tube placement TECHNIQUE: Single frontal view of the chest is obtained. FINDINGS: The heart size is enlarged. The pulmonary vasculature is normal. Mild infiltrate is at the right base. There is an endotracheal tube present with the tip above the demi. Nasogastric tube transverses the thorax. Mediastinal tube is present. Left central venous catheter is tip within the deep superior ve na cava. Left-sided chest tube is present. No pneumothorax is evident. IMPRESSION: 1. Mild infiltrate left base. 2. Multiple lines and catheters discussed above
[2016-10-14] MEDS ORDERED: FUROSEMIDE 10 MG/ML 2 ML VIAL IV STA (08:32)
[2016-10-14 08:35] LABS: Glucose,Whole Blood 214 mg/dL (75-99)
[2016-10-14] MEDS: DILTIAZEM ORAL 30 MG TAB PO SCH ×4 (08:37→21:22)
[2016-10-14] MEDS: CHLORHEXIDINE GLUCONATE 15 ML CUP MUCOUS MEM SCH ×2 (08:37→20:41)
[2016-10-14] MEDS: ATORVASTATIN 40 MG TAB PO SCH (08:38)
[2016-10-14] MEDS: CLOPIDOGREL 75 MG TAB PO SCH (08:38)
[2016-10-14] MEDS: METOPROLOL TARTRATE 12.5 MG TAB PO SCH ×2 (08:38→20:39)
[2016-10-14] MEDS: PANTOPRAZOLE 40 MG/10 ML VIAL IVP SCH (08:38)
[2016-10-14] MEDS: ASPIRIN 325 MG TAB PO SCH (08:38)
--- NOTE | 2016-10-14 08:52 | P.PN ---
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 Family history of coronary artery disease. POD #4 urgent coronary artery bypass graft surgery 4 vessels with the left internal mammary artery to the left anterior descending artery, left radial artery to the ramus artery, reverse saphenous vein graft to the diagonal artery , reverse saphenous vein graft to posterior descending artery, endoscopic vein harvest left greater saphenous vein, endoscopic harvest of left radial artery, intraoperative transesophageal echocardiogram and epi-aortic scanning. Postoperative re-intubation for airway protection. Patient's currently laying in the bed in no acute distress. Currently remains sedated on mechanical ventilation. There was concern for stroke as patient has had intermittent periods of lack of movement on the left side which has not been consistent. Patient has had 2 CT scans of the brain and neurology consulted, doubt stroke but will get 3rd CT scan today. Objective - Vital Signs Vital signs: Vital Signs Temp 99 F 10/14/16 08:00 Pulse 94 10/14/16 08:00 Resp 29 H 10/14/16 08:00 BP 114/71 10/14/16 06:00 Pulse Ox 98 10/14/16 08:00 Intake & Output 10/13/16 10/14/16 10/14/16 18:59 06:59 18:59 Intake Total 675.124 0018.115 215.243 Output Total 690 797 65 Balance 70.000 378.115 150.243 Weight 89.3 kg 89.4 kg Intake: IV 260 220 20 Lactated Ringers 1,000 ml 260 220 20 @ 20 mls/hr IV .Q24H [facility] Rx#:[id number] Intake, IV Titration 100.000 305.115 85.243 Amount Insulin Regular 100 unit 95.772 In Sodium Chloride 0.9% 100 ml @ Per Protocol IV .Q0M [facility] Rx#:[id number] Norepinephrin 4 mg-0.9% 105 Ns Pmx 4 mg In 250 ml @ Titrate IV .Q0M [facility] Rx#: [id number] Propofol 1,000 mg In 100 100.000 104.343 85.243 ml @ Titrate IV .Q0M [facility] Rx#:[id number] Tube Feeding 340 560 110 Other 60 90 Output: Chest Tube Drainage 120 117 15 Bilateral Mediastinal 40 35 5 Chest Tube Left Lateral 80 82 10 Chest Drainage 0 left medial calf 0 Urine 570 680 50 Other: Voiding Method Indwelling Catheter Indwelling Catheter Indwelling Catheter ABP, PAP, CO, CI - Last Documented Arterial Blood Pressure 116/56 Pulmonary Artery Pressure 27/13 Cardiac Output 9.2 Cardiac Index 4.5 - Constitutional General appearance: Present: no acute distress - Respiratory Details: Lungs sounds diminished bilaterally. Respirations even, nonlabored on mechanical ventilation. Current ventilator settings assist control mode, FiO2 50%, tidal volume 400, respiratory rate 22, PEEP 0. Mediastinal chest tube to - 27 m wall suction, drained 35 mL serous drainage overnight, 50 mL in the last 24 hours. Left pleural chest tube to -20 cm wall suction, 65 mL serous and was drainage overnight, 160 mL on the last 24 hours. No air leaks present. - Cardiovascular Details: S1, S2 present. Regular rate and rhythm, normal sinus rhythm to sinus tach on telemetry. Sternum stable. A/V epicardial pacemaker wires present, connected to generator, VVI mode with a backup rate 60 bpm. Right radial arterial line, left internal jugular triple-lumen central line present. Palpable pulses bilaterally. Trace upper extremity edema present. Teds/SCDs present. - Gastrointestinal Gastrointestinal Comment(s): Abdomen soft, nontender, nondistended. Active bowel sounds 4 quadrants. Tolerating tube feeding at 50 mL per hour with minimal residual through OG tube. - Genitourinary Genitourinary Comment(s): Rosario present draining clear, yellow urine. Output 50-125 mL per hour. - Integumentary Integumentary Comment(s): Anterior chest incision well approximated and covered with dry intact dressing. Left lower extremity EVH site well approximated, hematoma remains but is significantly reduced. Left radial artery harvest site well approximated with Dermabond. - Neurologic Neurologic Comment(s): Withdraws to painful stimuli in all 4 extremities. - Psychiatric Psychiatric Comment(s): Sedated on mechanical ventilation. - Allied health notes Allied health notes reviewed: nursing - Labs CBC & Chem 7: 10/14/16 04:00 10/14/16 04:00 Labs: Abnormal Lab Results - Last 24 Hours (Table) 10/13/16 10/13/16 10/13/16 Range/Units 09:14 09:55 11:02 RBC (4.30-5.90) m/uL Hgb (13.0-17.5) gm/dL Hct (39.0-53.0) % Lymphocytes # (1.0-4.8) k/uL PT (9.0-12.0) sec INR (<1.2) ABG pH (7.35-7.45) ABG pO2 (83-108) mmHg ABG HCO3 (21-25) mmol/L ABG Total CO2 (19-24) mmol/L ABG O2 Saturation (94-97) % Potassium (3.5-5.1) mmol/L Chloride (98-107) mmol/L BUN (9-20) mg/dL Glucose (74-99) mg/dL POC Glucose (mg/dL) 157 H 158 H 160 H (75-99) mg/dL Calcium (8.4-10.2) mg/dL Total Protein (6.3-8.2) g/dL Albumin (3.5-5.0) g/dL 10/13/16 10/13/16 10/13/16 Range/Units 12:23 13:54 15:55 RBC (4.30-5.90) m/uL Hgb (13.0-17.5) gm/dL Hct (39.0-53.0) % Lymphocytes # (1.0-4.8) k/uL PT (9.0-12.0) sec INR (<1.2) ABG pH (7.35-7.45) ABG pO2 (83-108) mmHg ABG HCO3 (21-25) mmol/L ABG Total CO2 (19-24) mmol/L ABG O2 Saturation (94-97) % Potassium (3.5-5.1) mmol/L Chloride (98-107) mmol/L BUN (9-20) mg/dL Glucose (74-99) mg/dL POC Glucose (mg/dL) 180 H 170 H 175 H (75-99) mg/dL Calcium (8.4-10.2) mg/dL Total Protein (6.3-8.2) g/dL Albumin (3.5-5.0) g/dL 10/13/16 10/13/16 10/13/16 Range/Units 18:27 20:29 22:46 RBC (4.30-5.90) m/uL Hgb (13.0-17.5) gm/dL Hct (39.0-53.0) % Lymphocytes # (1.0-4.8) k/uL PT (9.0-12.0) sec INR (<1.2) ABG pH (7.35-7.45) ABG pO2 (83-108) mmHg ABG HCO3 (21-25) mmol/L ABG Total CO2 (19-24) mmol/L ABG O2 Saturation (94-97) % Potassium (3.5-5.1) mmol/L Chloride (98-107) mmol/L BUN (9-20) mg/dL Glucose (74-99) mg/dL POC Glucose (mg/dL) 179 H 187 H 195 H (75-99) mg/dL Calcium (8.4-10.2) mg/dL Total Protein (6.3-8.2) g/dL Albumin (3.5-5.0) g/dL 10/14/16 10/14/16 10/14/16 Range/Units 00:06 02:11 04:00 RBC 2.53 L (4.30-5.90) m/uL Hgb 7.5 L (13.0-17.5) gm/dL Hct 21.8 L (39.0-53.0) % Lymphocytes # 0.6 L (1.0-4.8) k/uL PT (9.0-12.0) sec INR (<1.2) ABG pH (7.35-7.45) ABG pO2 (83-108) mmHg ABG HCO3 (21-25) mmol/L ABG Total CO2 (19-24) mmol/L ABG O2 Saturation (94-97) % Potassium (3.5-5.1) mmol/L Chloride (98-107) mmol/L BUN (9-20) mg/dL Glucose (74-99) mg/dL POC Glucose (mg/dL) 189 H 168 H (75-99) mg/dL Calcium (8.4-10.2) mg/dL Total Protein (6.3-8.2) g/dL Albumin (3.5-5.0) g/dL 10/14/16 10/14/16 10/14/16 Range/Units 04:00 04:00 04:12 RBC (4.30-5.90) m/uL Hgb (13.0-17.5) gm/dL Hct (39.0-53.0) % Lymphocytes # (1.0-4.8) k/uL PT 12.1 H (9.0-12.0) sec INR 1.2 H (<1.2) ABG pH (7.35-7.45) ABG pO2 (83-108) mmHg ABG HCO3 (21-25) mmol/L ABG Total CO2 (19-24) mmol/L ABG O2 Saturation (94-97) % Potassium 3.3 L (3.5-5.1) mmol/L Chloride 109 H (98-107) mmol/L BUN 25 H (9-20) mg/dL Glucose 182 H (74-99) mg/dL POC Glucose (mg/dL) 152 H (75-99) mg/dL Calcium 8.3 L (8.4-10.2) mg/dL Total Protein 4.3 L (6.3-8.2) g/dL Albumin 2.4 L (3.5-5.0) g/dL 10/14/16 10/14/16 10/14/16 Range/Units 04:50 06:08 08:32 RBC (4.30-5.90) m/uL Hgb (13.0-17.5) gm/dL Hct (39.0-53.0) % Lymphocytes # (1.0-4.8) k/uL PT (9.0-12.0) sec INR (<1.2) ABG pH 7.47 H (7.35-7.45) ABG pO2 80 L (83-108) mmHg ABG HCO3 27 H (21-25) mmol/L ABG Total CO2 10 L (19-24) mmol/L ABG O2 Saturation 98.0 H (94-97) % Potassium (3.5-5.1) mmol/L Chloride (98-107) mmol/L BUN (9-20) mg/dL Glucose (74-99) mg/dL POC Glucose (mg/dL) 208 H 214 H (75-99) mg/dL Calcium (8.4-10.2) mg/dL Total Protein (6.3-8.2) g/dL Albumin (3.5-5.0) g/dL Microbiology - Last 24 Hours (Table) 10/13/16 20:20 Urine Culture - Preliminary Urine,Catheterized 10/12/16 19:25 Gram Stain - Preliminary Sputum - Imaging and Cardiology Chest x-ray: report reviewed, image reviewed Assessment and Plan (1) Tobacco dependence in remission Status: Acute (2) Recovering alcoholic in remission Status: Acute (3) Drug addiction in remission Status: Acute (4) Bipolar 1 disorder Status: Acute (5) CHF NYHA class III (symptoms with mildly strenuous activities) Status: Acute (6) COPD (chronic obstructive pulmonary disease) Status: Acute (7) Coronary artery disease Status: Acute (8) Hypertension Status: Acute (9) Non-STEMI (non-ST elevated myocardial infarction) Status: Acute (10) Uncontrolled type 2 diabetes mellitus Status: Acute Plan: 1. Continue aspirin, statin, Plavix, heparin subcu, caleb. Will maximize beta caleb therapy as tolerated. 2. Continue oral Cardizem for radial artery spasm prevention. 3. Ventilator management per pulmonary services. Wean O2 as tolerated. Daily CPAP trials. 4. Will give Lasix 20 mg IV push 1 today. Will discontinue mediastinal chest tubes. 5. Continue tube feeding for nutritional support. 6. Patient go for computed tomography scan today per neurology. 7. PT/OT ordered. 8. GI/DVT prophylaxis. 9. Will monitor daily labs, x-rays. 10. Keep Rosario catheter for strict accurate I and O's. 11. More recommendations as patient progresses. Time with Patient: Greater than 30
[2016-10-14 10:04] LABS: Glucose,Whole Blood 213 mg/dL (75-99)
[2016-10-14 10:11] LABS: Glucose,Whole Blood 212 mg/dL (75-99)
--- NOTE | 2016-10-14 12:40 | CT ---
EXAMINATION TYPE: CT brain wo con DATE OF EXAM: 10/14/2016 COMPARISON: CT brain study from 2 and 3 days ago. HISTORY: Left sided weakness CT DLP: 1021.10 mGycm. Automated Exposure Control for Dose Reduction was Utilized. TECHNIQUE: CT scan of the head is performed without contrast. FINDINGS: There is no acute intracranial hemorrhage or midline shift identified. There is ventricul ar and sulcal prominence consistent with diffuse cerebral atrophy. There are more prominent focal and confluent areas of T2 hyperintensity seen throughout the deep and periventricular white matter bilat erally which continue to increase or become more prominent since admission study. This is more promin ent on the right side but present bilaterally. The globes are intact and the visualized sinuses are c lear. IMPRESSION: No acute intracranial hemorrhage or midline shift is seen. Mild diffuse age-related cere bral atrophy is seen. There is continued progression of moderate to severe nonspecific white matter c hanges since admission raising concern for acute ischemia.
--- NOTE | 2016-10-14 13:07 | P.PN ---
Subjective On 10/14/2016 I'm seeing this patient for Dr. Ramírez. I reviewed the records and examined the patient. Based on my review, the patient has undergone coronary artery bypass surgery and is postop day #4. Postoperative the patient was extubated blood any major difficulties. He continued to have change in mental status and there was suspicion for a left-sided CVA. The patient has had serial CAT scans the most recent CAT scan of which was done this morning it showed some abnormalities consistent with ischemic changes on the right. Clinically is having some weakness and deficits on the left than on the neurologic exam the patient has positive Babinski on the left. Note that the patient was having difficulty in swallowing including his S2 secretions. Based on that he had to be reintubated. Currently is on assist-control mode of ventilation at the rate of 22, tidal volume of 400, FiO2 of 50% and a PEEP of 0. His blood gases from this morning showed a pH of 7.47 with a pCO2 of 37 and pO2 of 80. Peak airway pressures around 16. He has some few scattered rhonchi and crackles in the lung bases. On today's chest x-ray, there is cardiomegaly, ET tube is in good location, he has a left IJ triple-lumen catheter, he has a left-sided chest tube, he has pulmonary vessel congestion and small effusion specially on the right. He was given 20 mg of IV Lasix this morning. Is producing adequate amount of urine output. He is afebrile for now. His hemoglobin is at 7.5. He has normal renal function. A sedation holiday will be given time to assess and evaluate his mental status. He is on aspirin. His cardiac rhythm is sinus Objective - Vital Signs Vital signs: Vital Signs Temp 99 F 10/14/16 08:00 Pulse 80 10/14/16 11:43 Resp 15 10/14/16 10:00 BP 114/71 10/14/16 06:00 Pulse Ox 97 10/14/16 10:00 Intake & Output 10/13/16 10/14/16 10/14/16 18:59 06:59 18:59 Intake Total 246.626 3288.115 572.139 Output Total 690 797 385 Balance 70.000 378.115 187.139 Weight 89.3 kg 89.4 kg 89.4 kg Intake: IV 260 220 100 Lactated Ringers 1,000 ml 260 220 100 @ 20 mls/hr IV .Q24H [facility] Rx#:[id number] Intake, IV Titration 100.000 305.115 112.139 Amount Insulin Regular 100 unit 95.772 26.896 In Sodium Chloride 0.9% 100 ml @ Per Protocol IV .Q0M [facility] Rx#:[id number] Norepinephrin 4 mg-0.9% 105 Ns Pmx 4 mg In 250 ml @ Titrate IV .Q0M [facility] Rx#: [id number] Propofol 1,000 mg In 100 100.000 104.343 85.243 ml @ Titrate IV .Q0M [facility] Rx#:[id number] Tube Feeding 340 560 330 Other 60 90 30 Output: Chest Tube Drainage 120 117 55 Bilateral Mediastinal 40 35 5 Chest Tube Left Lateral 80 82 50 Chest Drainage 0 left medial calf 0 Urine 570 680 330 Other: Voiding Method Indwelling Catheter Indwelling Catheter Indwelling Catheter ABP, PAP, CO, CI - Last Documented Arterial Blood Pressure 98/48 Pulmonary Artery Pressure 27/13 Cardiac Output 9.2 Cardiac Index 4.5 - Exam GENERAL EXAM: On mechanical ventilation with propofol for sedation, the orogastric and orotracheal tube are both in place. He has a left IJ triple- lumen catheter. HEAD: Normocephalic. EYES: Normal reaction of pupils, equal size. NOSE: Clear with pink turbinates. THROAT: No erythema or exudates. NECK: No masses, no JVD. CHEST: No chest wall deformity. The anterior chest wall incision with dressing clean dry and intact. LUNGS: Lungs are noted to be coarse throughout with some fine expiratory wheezing noted. Bases diminished. CVS: S1 and S2 normal with no audible mumurs, regular rhythm. The patient has stable sternal wound. No evidence of any bleeding. The left-sided chest tube is in place. ABDOMEN: No hepatosplenomegaly, normal bowel sounds, no guarding or rigidity. EXTREMITIES: No edema noted, pedal pulses palpable. Left lower extremity site clean dry and intact, JOSE drain present with minimal drainage, left radial harvest site clean dry and intact. SKIN: No rashes CENTRAL NERVOUS SYSTEM: On mechanical ventilation with propofol for sedation, withdraws from painful stimuli, during sedation holiday the patient is noted to have a grade 2 out of 5 upper extremity neglect right side remains 5 out of 5. He has a possible Babinski on the left. No clonus. No facial asymmetry. Pupils are equal and reactive to light. - Labs CBC & Chem 7: 10/14/16 04:00 10/14/16 10:15 Labs: Abnormal Lab Results - Last 24 Hours (Table) 10/13/16 10/13/16 10/13/16 Range/Units 13:54 15:55 18:27 RBC (4.30-5.90) m/uL Hgb (13.0-17.5) gm/dL Hct (39.0-53.0) % Lymphocytes # (1.0-4.8) k/uL PT (9.0-12.0) sec INR (<1.2) ABG pH (7.35-7.45) ABG pO2 (83-108) mmHg ABG HCO3 (21-25) mmol/L ABG Total CO2 (19-24) mmol/L ABG O2 Saturation (94-97) % Potassium (3.5-5.1) mmol/L Chloride (98-107) mmol/L BUN (9-20) mg/dL Glucose (74-99) mg/dL POC Glucose (mg/dL) 170 H 175 H 179 H (75-99) mg/dL Calcium (8.4-10.2) mg/dL Total Protein (6.3-8.2) g/dL Albumin (3.5-5.0) g/dL 10/13/16 10/13/16 10/14/16 Range/Units 20:29 22:46 00:06 RBC (4.30-5.90) m/uL Hgb (13.0-17.5) gm/dL Hct (39.0-53.0) % Lymphocytes # (1.0-4.8) k/uL PT (9.0-12.0) sec INR (<1.2) ABG pH (7.35-7.45) ABG pO2 (83-108) mmHg ABG HCO3 (21-25) mmol/L ABG Total CO2 (19-24) mmol/L ABG O2 Saturation (94-97) % Potassium (3.5-5.1) mmol/L Chloride (98-107) mmol/L BUN (9-20) mg/dL Glucose (74-99) mg/dL POC Glucose (mg/dL) 187 H 195 H 189 H (75-99) mg/dL Calcium (8.4-10.2) mg/dL Total Protein (6.3-8.2) g/dL Albumin (3.5-5.0) g/dL 10/14/16 10/14/16 10/14/16 Range/Units 02:11 04:00 04:00 RBC 2.53 L (4.30-5.90) m/uL Hgb 7.5 L (13.0-17.5) gm/dL Hct 21.8 L (39.0-53.0) % Lymphocytes # 0.6 L (1.0-4.8) k/uL PT 12.1 H (9.0-12.0) sec INR 1.2 H (<1.2) ABG pH (7.35-7.45) ABG pO2 (83-108) mmHg ABG HCO3 (21-25) mmol/L ABG Total CO2 (19-24) mmol/L ABG O2 Saturation (94-97) % Potassium (3.5-5.1) mmol/L Chloride (98-107) mmol/L BUN (9-20) mg/dL Glucose (74-99) mg/dL POC Glucose (mg/dL) 168 H (75-99) mg/dL Calcium (8.4-10.2) mg/dL Total Protein (6.3-8.2) g/dL Albumin (3.5-5.0) g/dL 10/14/16 10/14/16 10/14/16 Range/Units 04:00 04:12 04:50 RBC (4.30-5.90) m/uL Hgb (13.0-17.5) gm/dL Hct (39.0-53.0) % Lymphocytes # (1.0-4.8) k/uL PT (9.0-12.0) sec INR (<1.2) ABG pH 7.47 H (7.35-7.45) ABG pO2 80 L (83-108) mmHg ABG HCO3 27 H (21-25) mmol/L ABG Total CO2 10 L (19-24) mmol/L ABG O2 Saturation 98.0 H (94-97) % Potassium 3.3 L (3.5-5.1) mmol/L Chloride 109 H (98-107) mmol/L BUN 25 H (9-20) mg/dL Glucose 182 H (74-99) mg/dL POC Glucose (mg/dL) 152 H (75-99) mg/dL Calcium 8.3 L (8.4-10.2) mg/dL Total Protein 4.3 L (6.3-8.2) g/dL Albumin 2.4 L (3.5-5.0) g/dL 10/14/16 10/14/16 10/14/16 Range/Units 06:08 08:32 10:03 RBC (4.30-5.90) m/uL Hgb (13.0-17.5) gm/dL Hct (39.0-53.0) % Lymphocytes # (1.0-4.8) k/uL PT (9.0-12.0) sec INR (<1.2) ABG pH (7.35-7.45) ABG pO2 (83-108) mmHg ABG HCO3 (21-25) mmol/L ABG Total CO2 (19-24) mmol/L ABG O2 Saturation (94-97) % Potassium (3.5-5.1) mmol/L Chloride (98-107) mmol/L BUN (9-20) mg/dL Glucose (74-99) mg/dL POC Glucose (mg/dL) 208 H 214 H 213 H (75-99) mg/dL Calcium (8.4-10.2) mg/dL Total Protein (6.3-8.2) g/dL Albumin (3.5-5.0) g/dL 10/14/16 Range/Units 10:09 RBC (4.30-5.90) m/uL Hgb (13.0-17.5) gm/dL Hct (39.0-53.0) % Lymphocytes # (1.0-4.8) k/uL PT (9.0-12.0) sec INR (<1.2) ABG pH (7.35-7.45) ABG pO2 (83-108) mmHg ABG HCO3 (21-25) mmol/L ABG Total CO2 (19-24) mmol/L ABG O2 Saturation (94-97) % Potassium (3.5-5.1) mmol/L Chloride (98-107) mmol/L BUN (9-20) mg/dL Glucose (74-99) mg/dL POC Glucose (mg/dL) 212 H (75-99) mg/dL Calcium (8.4-10.2) mg/dL Total Protein (6.3-8.2) g/dL Albumin (3.5-5.0) g/dL Microbiology - Last 24 Hours (Table) 10/13/16 20:20 Urine Culture - Preliminary Urine,Catheterized Assessment and Plan Plan: Assessment 1 coronary artery bypass surgery, patient had four-vessel bypass and the patient is postop day #4 2 acute CVA with left-sided weakness. The patient had diminished level of consciousness and difficulty in handling indicating his respiratory secretions and based on that he had to be reintubated 3 acute respiratory failure, secondary to diminished level of consciousness and inability to clear rest or secretions. This was done prophylactically to secure an airway. 4 small postoperative bilateral pleural effusions 5 left-sided chest tube in place 6 diffuse coronary artery disease status post acute NV 7 diabetes mellitus type 2 8 hypertension 9 hyperlipidemia 10 anemia, multifactorial currently having a stable hemoglobin 11 COPD 12 recovered alcoholic and drug addict. 13 bipolar disorder Plan We'll give the patient is sedation holiday. We'll assess underlying mental status. We'll check daily weaning parameters. We'll check his ability to cough and the rest or secretions using monitor his cough and gag reflex. We can use an alternative mode of ventilation. The patient's Coumadin status is quite stable at this point and he can be extubated as long as he has a clear sensorium and he is able to clear up his respiratory secretions. For that reason I do monitored on a daily basis. Meanwhile, I reviewed the follow-up CAT scan of the head. I reviewed the medication. Patient is on appropriate treatments. Reviewed the records. We'll continue to follow make further recommendations based on his progress. Critically care evaluation.31 min Time with Patient: Greater than 30
[2016-10-14 13:20] LABS: Glucose,Whole Blood 191 mg/dL (75-99)
--- NOTE | 2016-10-14 14:04 | P.PN ---
Subjective Patient is still intubated. He seems to be moving his left leg today. Computed tomography scan report was reviewed. Discussed with the ICU team and Dr. Olmos Plan Continue cardiac medications Hopefully he will recover from his CVA completely ICU care per pulmonary critical care team Objective - Vital Signs Vital signs: Vital Signs Temp 99 F 10/14/16 08:00 Pulse 80 10/14/16 11:43 Resp 15 10/14/16 10:00 BP 114/71 10/14/16 06:00 Pulse Ox 97 10/14/16 10:00 Intake & Output 10/13/16 10/14/16 10/14/16 18:59 06:59 18:59 Intake Total 390.909 9417.115 572.139 Output Total 690 797 385 Balance 70.000 378.115 187.139 Weight 89.3 kg 89.4 kg 89.4 kg Intake: IV 260 220 100 Lactated Ringers 1,000 ml 260 220 100 @ 20 mls/hr IV .Q24H [facility] Rx#:[id number] Intake, IV Titration 100.000 305.115 112.139 Amount Insulin Regular 100 unit 95.772 26.896 In Sodium Chloride 0.9% 100 ml @ Per Protocol IV .Q0M [facility] Rx#:[id number] Norepinephrin 4 mg-0.9% 105 Ns Pmx 4 mg In 250 ml @ Titrate IV .Q0M [facility] Rx#: [id number] Propofol 1,000 mg In 100 100.000 104.343 85.243 ml @ Titrate IV .Q0M [facility] Rx#:[id number] Tube Feeding 340 560 330 Other 60 90 30 Output: Chest Tube Drainage 120 117 55 Bilateral Mediastinal 40 35 5 Chest Tube Left Lateral 80 82 50 Chest Drainage 0 left medial calf 0 Urine 570 680 330 Other: Voiding Method Indwelling Catheter Indwelling Catheter Indwelling Catheter ABP, PAP, CO, CI - Last Documented Arterial Blood Pressure 98/48 Pulmonary Artery Pressure 27/13 Cardiac Output 9.2 Cardiac Index 4.5 - Labs CBC & Chem 7: 10/14/16 04:00 10/14/16 10:15 Labs: Abnormal Lab Results - Last 24 Hours (Table) 10/13/16 10/13/16 10/13/16 Range/Units 15:55 18:27 20:29 RBC (4.30-5.90) m/uL Hgb (13.0-17.5) gm/dL Hct (39.0-53.0) % Lymphocytes # (1.0-4.8) k/uL PT (9.0-12.0) sec INR (<1.2) ABG pH (7.35-7.45) ABG pO2 (83-108) mmHg ABG HCO3 (21-25) mmol/L ABG Total CO2 (19-24) mmol/L ABG O2 Saturation (94-97) % Potassium (3.5-5.1) mmol/L Chloride (98-107) mmol/L BUN (9-20) mg/dL Glucose (74-99) mg/dL POC Glucose (mg/dL) 175 H 179 H 187 H (75-99) mg/dL Calcium (8.4-10.2) mg/dL Total Protein (6.3-8.2) g/dL Albumin (3.5-5.0) g/dL 10/13/16 10/14/16 10/14/16 Range/Units 22:46 00:06 02:11 RBC (4.30-5.90) m/uL Hgb (13.0-17.5) gm/dL Hct (39.0-53.0) % Lymphocytes # (1.0-4.8) k/uL PT (9.0-12.0) sec INR (<1.2) ABG pH (7.35-7.45) ABG pO2 (83-108) mmHg ABG HCO3 (21-25) mmol/L ABG Total CO2 (19-24) mmol/L ABG O2 Saturation (94-97) % Potassium (3.5-5.1) mmol/L Chloride (98-107) mmol/L BUN (9-20) mg/dL Glucose (74-99) mg/dL POC Glucose (mg/dL) 195 H 189 H 168 H (75-99) mg/dL Calcium (8.4-10.2) mg/dL Total Protein (6.3-8.2) g/dL Albumin (3.5-5.0) g/dL 10/14/16 10/14/16 10/14/16 Range/Units 04:00 04:00 04:00 RBC 2.53 L (4.30-5.90) m/uL Hgb 7.5 L (13.0-17.5) gm/dL Hct 21.8 L (39.0-53.0) % Lymphocytes # 0.6 L (1.0-4.8) k/uL PT 12.1 H (9.0-12.0) sec INR 1.2 H (<1.2) ABG pH (7.35-7.45) ABG pO2 (83-108) mmHg ABG HCO3 (21-25) mmol/L ABG Total CO2 (19-24) mmol/L ABG O2 Saturation (94-97) % Potassium 3.3 L (3.5-5.1) mmol/L Chloride 109 H (98-107) mmol/L BUN 25 H (9-20) mg/dL Glucose 182 H (74-99) mg/dL POC Glucose (mg/dL) (75-99) mg/dL Calcium 8.3 L (8.4-10.2) mg/dL Total Protein 4.3 L (6.3-8.2) g/dL Albumin 2.4 L (3.5-5.0) g/dL 10/14/16 10/14/16 10/14/16 Range/Units 04:12 04:50 06:08 RBC (4.30-5.90) m/uL Hgb (13.0-17.5) gm/dL Hct (39.0-53.0) % Lymphocytes # (1.0-4.8) k/uL PT (9.0-12.0) sec INR (<1.2) ABG pH 7.47 H (7.35-7.45) ABG pO2 80 L (83-108) mmHg ABG HCO3 27 H (21-25) mmol/L ABG Total CO2 10 L (19-24) mmol/L ABG O2 Saturation 98.0 H (94-97) % Potassium (3.5-5.1) mmol/L Chloride (98-107) mmol/L BUN (9-20) mg/dL Glucose (74-99) mg/dL POC Glucose (mg/dL) 152 H 208 H (75-99) mg/dL Calcium (8.4-10.2) mg/dL Total Protein (6.3-8.2) g/dL Albumin (3.5-5.0) g/dL 10/14/16 10/14/16 10/14/16 Range/Units 08:32 10:03 10:09 RBC (4.30-5.90) m/uL Hgb (13.0-17.5) gm/dL Hct (39.0-53.0) % Lymphocytes # (1.0-4.8) k/uL PT (9.0-12.0) sec INR (<1.2) ABG pH (7.35-7.45) ABG pO2 (83-108) mmHg ABG HCO3 (21-25) mmol/L ABG Total CO2 (19-24) mmol/L ABG O2 Saturation (94-97) % Potassium (3.5-5.1) mmol/L Chloride (98-107) mmol/L BUN (9-20) mg/dL Glucose (74-99) mg/dL POC Glucose (mg/dL) 214 H 213 H 212 H (75-99) mg/dL Calcium (8.4-10.2) mg/dL Total Protein (6.3-8.2) g/dL Albumin (3.5-5.0) g/dL 10/14/16 Range/Units 13:18 RBC (4.30-5.90) m/uL Hgb (13.0-17.5) gm/dL Hct (39.0-53.0) % Lymphocytes # (1.0-4.8) k/uL PT (9.0-12.0) sec INR (<1.2) ABG pH (7.35-7.45) ABG pO2 (83-108) mmHg ABG HCO3 (21-25) mmol/L ABG Total CO2 (19-24) mmol/L ABG O2 Saturation (94-97) % Potassium (3.5-5.1) mmol/L Chloride (98-107) mmol/L BUN (9-20) mg/dL Glucose (74-99) mg/dL POC Glucose (mg/dL) 191 H (75-99) mg/dL Calcium (8.4-10.2) mg/dL Total Protein (6.3-8.2) g/dL Albumin (3.5-5.0) g/dL Microbiology - Last 24 Hours (Table) 10/13/16 20:20 Urine Culture - Preliminary Urine,Catheterized
[2016-10-14 14:29] LABS: Glucose,Whole Blood 146 mg/dL (75-99)
--- NOTE | 2016-10-14 15:46 | PN ---
PROGRESS NOTE ICU 30 minutes SUBJECTIVE: 50-year-old, white male, was admitted to the hospital status post bypass x4, status post ischemic cardiomyopathy. There is a question about yesterday whether he had a possible stroke. His left arm was not moving. Although the cardiac nurse states she had seen the left upper arm move over his head yesterday. She thinks it is more psychiatric involved. Neurology consult has seen the patient. CT scan of the brain has been negative for strokes. Temp 99.5, O2 92, blood pressure 100/55 without vasopressors, respiratory 18-22, O2 96. Psych appears more lethargic. When he wakes up is able to move his right side of his arm anyway. he has had no rash. No erythema. Cardiac: Regular rate and rhythm. Neurologic: No seizures. Hemoglobin was 7.6. Sugars have been 100, a significant drop. ASSESSMENT: 1. Acute left-sided weakness. 2. Status post CABG. EEG showed theta range activity. No carotid stenosis. Unclear etiology whether there is a stroke or just lethargy secondary to the anesthesia and surgery. Continue broad- spectrum medications. Please see further orders. Pulmonology and Cardiology notes are all appreciated. ICU time is 30 minutes. MMODL / IJN: [id number] /
[2016-10-14 15:58] LABS: Glucose,Whole Blood 133 mg/dL (75-99)
[2016-10-14 16:43] LABS: Glucose,Whole Blood 138 mg/dL (75-99)
[2016-10-14] MEDS: LACTATED RINGERS 1,000 ML IV SCH (17:24)
[2016-10-14 18:35] LABS: Glucose,Whole Blood 162 mg/dL (75-99)
[2016-10-14 19:53] LABS: Glucose,Whole Blood 200 mg/dL (75-99)
[2016-10-14] MEDS: SENNOSIDES-DOCUSATE SODIUM 1 EACH TAB PO SCH (20:43)
[2016-10-14 22:15] LABS: Glucose,Whole Blood 198 mg/dL (75-99)
--- NOTE | 2016-10-14 23:20 | P.PN ---
Subjective Principal diagnosis: left-sided weakness, rule out CVA October 14, 2016: Patient's physical status remains unchanged. Patient was found supine in bed on a ventilator in the. Patient was in no acute distress. Family was at the bedside. Patient did have a CT of the brain today. It noted no acute intracranial hemorrhage or midline shift. Mild diffuse age-related cerebral atrophy seen. Continued progression of moderate to severe nonspecific white matter changes since admission raising concern for acute ischemia. Supervising physician reviewed the report and we will continue to manage as ischemic stroke at this point. Lipid panel noted triglycerides 163, cholesterol 61, LDL at 9 and HDL at 19. serum homocysteine level was normal at 4.4. Carotid Dopplers noted no evidence of hemodynamically significant stenosis on the right, left is not visualized to the line. EEG was noted as previously abnormal. Noted mild encephalopathy. Patient is currently on aspirin 325 mg, Lipitor 40 mg. continue neuro checks every shift. October 13, 2016: Patient is a 50-year-old male being followed by neurology who is status post bypass graft 4. Patient had left-sided weakness post procedure. Patient reportedly maintained difficulty moving the left upper extremity and neurology was consulted yesterday. EEG was ordered and obtained. Patient is currently on aspirin, Plavix, atorvastatin, diltiazem, beta blockers. Patient is currently in the ICU on ventilator and is sedated, resting in no acute distress. Nursing staff reports that patient had difficulty moving his left upper extremity status post surgery. CT of the brain was conducted October 11, October 12 and will be repeated again tomorrow. Supervising physician examined the patient yesterday. Objective - Vital Signs Vital signs: Vital Signs Temp 99.5 F 10/14/16 16:00 Pulse 107 H 10/14/16 22:00 Resp 32 H 10/14/16 22:00 BP 114/71 10/14/16 06:00 Pulse Ox 94 L 10/14/16 22:00 Intake & Output 10/14/16 10/14/16 10/15/16 06:59 18:59 06:59 Intake Total 0676.325 8963.041 367.32 Output Total 797 880 175 Balance 378.115 487.041 192.32 Weight 89.4 kg 89.4 kg Intake: IV 220 240 60 Lactated Ringers 1,000 ml 220 240 60 @ 20 mls/hr IV .Q24H [facility] Rx#:[id number] Intake, IV Titration 305.115 242.041 32.32 Amount Insulin Regular 100 unit 95.772 56.798 32.32 In Sodium Chloride 0.9% 100 ml @ Per Protocol IV .Q0M [facility] Rx#:[id number] Norepinephrin 4 mg-0.9% 105 Ns Pmx 4 mg In 250 ml @ Titrate IV .Q0M [facility] Rx#: [id number] Propofol 1,000 mg In 100 104.343 185.243 ml @ Titrate IV .Q0M [facility] Rx#:[id number] Tube Feeding 560 825 275 Other 90 60 Output: Chest Tube Drainage 117 95 0 Bilateral Mediastinal 35 5 Chest Tube Left Lateral 82 90 0 Chest Urine 680 785 175 Other: Voiding Method Indwelling Catheter Indwelling Catheter Indwelling Catheter ABP, PAP, CO, CI - Last Documented Arterial Blood Pressure 158/61 Pulmonary Artery Pressure 27/13 Cardiac Output 9.2 Cardiac Index 4.5 - Exam physical exam was limited. Patient is sedated on ventilator in the ICU. Constitutional: AOx1, sedated HEENT: NC/AT, no facial asymmetry is seen. Throat: Supple, no masses Respiratory: ventilator in use Cardiac: Regular rate and Rhythm Neurological: no seizure activity noted on physical exam. Integementary: no rash, no erythema Psychiatric: mood and affect appropriate - Labs CBC & Chem 7: 10/14/16 04:00 10/14/16 22:00 Labs: Abnormal Lab Results - Last 24 Hours (Table) 10/14/16 10/14/16 10/14/16 Range/Units 00:06 02:11 04:00 RBC 2.53 L (4.30-5.90) m/uL Hgb 7.5 L (13.0-17.5) gm/dL Hct 21.8 L (39.0-53.0) % Lymphocytes # 0.6 L (1.0-4.8) k/uL PT (9.0-12.0) sec INR (<1.2) ABG pH (7.35-7.45) ABG pO2 (83-108) mmHg ABG HCO3 (21-25) mmol/L ABG Total CO2 (19-24) mmol/L ABG O2 Saturation (94-97) % Potassium (3.5-5.1) mmol/L Chloride (98-107) mmol/L BUN (9-20) mg/dL Glucose (74-99) mg/dL POC Glucose (mg/dL) 189 H 168 H (75-99) mg/dL Calcium (8.4-10.2) mg/dL Total Protein (6.3-8.2) g/dL Albumin (3.5-5.0) g/dL 10/14/16 10/14/16 10/14/16 Range/Units 04:00 04:00 04:12 RBC (4.30-5.90) m/uL Hgb (13.0-17.5) gm/dL Hct (39.0-53.0) % Lymphocytes # (1.0-4.8) k/uL PT 12.1 H (9.0-12.0) sec INR 1.2 H (<1.2) ABG pH (7.35-7.45) ABG pO2 (83-108) mmHg ABG HCO3 (21-25) mmol/L ABG Total CO2 (19-24) mmol/L ABG O2 Saturation (94-97) % Potassium 3.3 L (3.5-5.1) mmol/L Chloride 109 H (98-107) mmol/L BUN 25 H (9-20) mg/dL Glucose 182 H (74-99) mg/dL POC Glucose (mg/dL) 152 H (75-99) mg/dL Calcium 8.3 L (8.4-10.2) mg/dL Total Protein 4.3 L (6.3-8.2) g/dL Albumin 2.4 L (3.5-5.0) g/dL 10/14/16 10/14/16 10/14/16 Range/Units 04:50 06:08 08:32 RBC (4.30-5.90) m/uL Hgb (13.0-17.5) gm/dL Hct (39.0-53.0) % Lymphocytes # (1.0-4.8) k/uL PT (9.0-12.0) sec INR (<1.2) ABG pH 7.47 H (7.35-7.45) ABG pO2 80 L (83-108) mmHg ABG HCO3 27 H (21-25) mmol/L ABG Total CO2 10 L (19-24) mmol/L ABG O2 Saturation 98.0 H (94-97) % Potassium (3.5-5.1) mmol/L Chloride (98-107) mmol/L BUN (9-20) mg/dL Glucose (74-99) mg/dL POC Glucose (mg/dL) 208 H 214 H (75-99) mg/dL Calcium (8.4-10.2) mg/dL Total Protein (6.3-8.2) g/dL Albumin (3.5-5.0) g/dL 10/14/16 10/14/16 10/14/16 Range/Units 10:03 10:09 13:18 RBC (4.30-5.90) m/uL Hgb (13.0-17.5) gm/dL Hct (39.0-53.0) % Lymphocytes # (1.0-4.8) k/uL PT (9.0-12.0) sec INR (<1.2) ABG pH (7.35-7.45) ABG pO2 (83-108) mmHg ABG HCO3 (21-25) mmol/L ABG Total CO2 (19-24) mmol/L ABG O2 Saturation (94-97) % Potassium (3.5-5.1) mmol/L Chloride (98-107) mmol/L BUN (9-20) mg/dL Glucose (74-99) mg/dL POC Glucose (mg/dL) 213 H 212 H 191 H (75-99) mg/dL Calcium (8.4-10.2) mg/dL Total Protein (6.3-8.2) g/dL Albumin (3.5-5.0) g/dL 10/14/16 10/14/16 10/14/16 Range/Units 14:26 15:56 16:40 RBC (4.30-5.90) m/uL Hgb (13.0-17.5) gm/dL Hct (39.0-53.0) % Lymphocytes # (1.0-4.8) k/uL PT (9.0-12.0) sec INR (<1.2) ABG pH (7.35-7.45) ABG pO2 (83-108) mmHg ABG HCO3 (21-25) mmol/L ABG Total CO2 (19-24) mmol/L ABG O2 Saturation (94-97) % Potassium (3.5-5.1) mmol/L Chloride (98-107) mmol/L BUN (9-20) mg/dL Glucose (74-99) mg/dL POC Glucose (mg/dL) 146 H 133 H 138 H (75-99) mg/dL Calcium (8.4-10.2) mg/dL Total Protein (6.3-8.2) g/dL Albumin (3.5-5.0) g/dL 10/14/16 10/14/16 10/14/16 Range/Units 18:33 19:51 22:11 RBC (4.30-5.90) m/uL Hgb (13.0-17.5) gm/dL Hct (39.0-53.0) % Lymphocytes # (1.0-4.8) k/uL PT (9.0-12.0) sec INR (<1.2) ABG pH (7.35-7.45) ABG pO2 (83-108) mmHg ABG HCO3 (21-25) mmol/L ABG Total CO2 (19-24) mmol/L ABG O2 Saturation (94-97) % Potassium (3.5-5.1) mmol/L Chloride (98-107) mmol/L BUN (9-20) mg/dL Glucose (74-99) mg/dL POC Glucose (mg/dL) 162 H 200 H 198 H (75-99) mg/dL Calcium (8.4-10.2) mg/dL Total Protein (6.3-8.2) g/dL Albumin (3.5-5.0) g/dL Microbiology - Last 24 Hours (Table) 10/13/16 20:20 Blood Culture - Preliminary Blood No Growth after 24 hours 10/13/16 20:20 Urine Culture - Preliminary Urine,Catheterized Assessment and Plan (1) Acute left-sided weakness Status: Acute (2) Coronary artery disease Status: Acute (3) Acute ischemic stroke Status: Acute Plan: 1. Acute left-sided weakness/acute ischemic stroke: Patient has a complex medical history involving psychiatric disorder as well as coronary artery disease with recent CABG 4. Left-sided weakness will be reassessed once the patient is no longer sedated. At this time the patient's EEG is abnormal and noted slowing background rhythm in the theta range. encephalopathy noted. Patient's carotid Dopplers noted no hemodynamically significant stenosis on the right, left could not be completely evaluated due to a line. CT of the brain 2 as noted in imaging comments previously. CT of the brain today noted no acute intracranial hemorrhage or midline shift seen. Mild diffuse age-related cerebral atrophy seen. Continue progression of moderate to severe nonspecific white matter changes since admission raising concern for acute ischemia. Continue with current treatment regimen. Continue neuro checks every shift, DVT prophylaxis and notify neurology with any neurological status changes. Continue aspirin 325 mg by mouth daily, continue Lipitor 40 mg by mouth daily at bedtime. Status: Neurology will continue to follow and provide further information is needed or warranted. Feel free to contact our office with any questions I discussed the patient's pertinent medical information with Dr. Maloney. He agrees with the plan of care as implemented.
[2016-10-14] MEDS: MORPHINE SULFATE 2 MG/ML SYRINGE IVP PRN (23:58)
[2016-10-15] MEDS ORDERED: POTASSIUM CHLORIDE ORAL LIQUID 40 MEQ/30 ML CUP NG-TUBE SCH
[2016-10-15 00:25] LABS: Glucose,Whole Blood 190 mg/dL (75-99)
[2016-10-15 02:02] LABS: Glucose,Whole Blood 177 mg/dL (75-99)
[2016-10-15 02:21] LABS: Glucose,Whole Blood 211 mg/dL (75-99)
[2016-10-15] MEDS: hydrALAZINE HCL 20 MG/ML 1 ML VIAL IVP PRN ×3 (03:31→18:07)
[2016-10-15] MEDS: PROPOFOL 1,000 MG/100 ML VIAL IV SCH ×2 (03:45→19:34)
[2016-10-15] MEDS: ACETAMINOPHEN IV (For NPO) 1,000 MG in EMPTY BAG 1 BAG IVPB PRN ×2 (03:46→16:18)
[2016-10-15 03:51] LABS: Basophils % (A) 0 %; CH 30.7; CHCM 35.6; Eosinophils # (A) 0.1 k/uL (0-0.7); Eosinophils % (A) 1 %; HCT 24.2 % (39.0-53.0); HDW 3.62; Luc # (Auto) 0.17; Luc % (Auto) 1; Lymphocytes # (A) 0.7 k/uL (1.0-4.8); Lymphocytes % (A) 6 %; MCH 28.7 pg (25.0-35.0); MCV 86.8 fL (80.0-100.0); Mean Platelet Volume 8.5; Monocytes # (A) 0.7 k/uL (0-1.0); Monocytes % (A) 6 %; Neutrophils # (A) 10.6 k/uL (1.3-7.7); Neutrophils % (A) 86 %; Poikilocytosis Slight; RBC 2.79 m/uL (4.30-5.90); RDW 14.6 % (11.5-15.5); WBC 12.3 k/uL (3.8-10.6); WBC (Perox) 12.76
[2016-10-15 04:04] LABS: INR 1.2 (<1.2); Prothrombin Time 12.1 sec (9.0-12.0)
[2016-10-15 04:05] LABS: Glucose,Whole Blood 207 mg/dL (75-99)
[2016-10-15 04:23] LABS: ALT 37 U/L (21-72); AST 18 U/L (17-59); Alkaline Phosphatase 80 U/L (38-126); Anion Gap 7 mmol/L; Blood Urea Nitrogen 23 mg/dL (9-20); Calcium 8.4 mg/dL (8.4-10.2); Carbon Dioxide 26 mmol/L (22-30); Chloride 111 mmol/L (98-107); Glucose 196 mg/dL (74-99); Non-African American GFR(MDRD) >60 (>60 ml/min/1.73 sqM); Phosphorous 2.5 mg/dL (2.5-4.5); Sodium 144 mmol/L (137-145); Total Bilirubin 0.5 mg/dL (0.2-1.3); Total Protein 4.7 g/dL (6.3-8.2)
[2016-10-15 04:45] LABS: ABG Base Excess 0.4 mmol/L; ABG HCO3 24 mmol/L (21-25); ABG PCO2 34 mmHg (35-45); ABG PH 7.46 (7.35-7.45); ABG PO2 73 mmHg (83-108); ABG TCO2 25 mmol/L (19-24)
[2016-10-15] MEDS: PIPERACILLIN-TAZOBACTAM 3.375 GM in DEXTROSE/WATER 1 50ML.BAG IVPB SCH ×3 (05:41→20:51)
[2016-10-15 05:50] LABS: Glucose,Whole Blood 197 mg/dL (75-99)
--- NOTE | 2016-10-15 07:18 | XR ---
EXAMINATION TYPE: XR chest 1V portable DATE OF EXAM: 10/15/2016 CLINICAL HISTORY: Difficulty breathing progress study. TECHNIQUE: Single AP portable semiupright view of the chest is obtained. COMPARISON: Chest x-ray from one day earlier FINDINGS: An endotracheal tube, orogastric tube, and left internal jugular central venous catheter a re stable in appearance. There is left basilar chest tube redemonstrated. There is interval removal o f mediastinal drainage catheter. Post CABG changes with mediastinal clips and sternal wires is redemonstrated. There is persistent car diomegaly with mild central vascular congestion. There is persistent bibasilar opacity consistent wit h atelectasis and/or infiltrate. No large pleural effusion or pneumothorax is present. Osseous struct ures are intact. IMPRESSION: There is interval removal of mediastinal drainage catheter. There is persistent cardiomeg chris with mild central vascular congestion and bibasilar atelectasis and/or infiltrate all redemonstra avinash.
[2016-10-15] MEDS: IPRATROPIUM-ALBUTEROL 3 ML NEB INHALATION SCH ×4 (07:31→19:54)
[2016-10-15 08:36] LABS: Glucose,Whole Blood 123 mg/dL (75-99)
[2016-10-15] MEDS: HEPARIN SODIUM,PORCINE 5,000 UNIT/ML 1 ML VIAL SQ SCH ×3 (08:38→23:21)
[2016-10-15] MEDS: ATORVASTATIN 40 MG TAB PO SCH (08:38)
[2016-10-15] MEDS: ASPIRIN 325 MG TAB PO SCH (08:38)
[2016-10-15] MEDS: METOPROLOL TARTRATE 25 MG TAB PO SCH ×2 (08:39→20:52)
[2016-10-15] MEDS: CLOPIDOGREL 75 MG TAB PO SCH (08:39)
[2016-10-15] MEDS: PANTOPRAZOLE 40 MG/10 ML VIAL IVP SCH (08:39)
[2016-10-15] MEDS: DILTIAZEM ORAL 30 MG TAB PO SCH ×4 (08:39→20:53)
[2016-10-15] MEDS: CHLORHEXIDINE GLUCONATE 15 ML CUP MUCOUS MEM SCH ×2 (08:39→20:51)
--- NOTE | 2016-10-15 08:57 | P.PN ---
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 Family history of coronary artery disease. POD #5 urgent coronary artery bypass graft surgery 4 vessels with the left internal mammary artery to the left anterior descending artery, left radial artery to the ramus artery, reverse saphenous vein graft to the diagonal artery , reverse saphenous vein graft to posterior descending artery, endoscopic vein harvest left greater saphenous vein, endoscopic harvest of left radial artery, intraoperative transesophageal echocardiogram and epi-aortic scanning. Postoperative re-intubation for airway protection. Postoperative ischemic stroke, a potential outcome of surgery. Leukocytosis, possible pneumonia, awaiting sputum culture, preliminary Gram stain demonstrates few gram-positive cocci in clusters, a potential outcome with reintubation. Patient's currently laying in the bed in no acute distress. Remains sedated on mechanical ventilation. Third computed tomography scan yesterday demonstrated mild diffuse age-related cerebral atrophy, continued progression of moderate to severe nonspecific white matter changes since admission recent concern for acute ischemia. Patient developed a fever last night with a maximum temperature of 103.1F and had an elevated white blood cell count of 12.3 this morning. Blood and urine cultures were sent, still attempting to try to get sputum culture. Objective - Vital Signs Vital signs: Vital Signs Temp 99.2 F 10/15/16 08:00 Pulse 97 10/15/16 08:00 Resp 32 H 10/15/16 08:00 BP 114/71 10/14/16 06:00 Pulse Ox 95 10/15/16 08:00 Intake & Output 10/14/16 10/15/16 10/15/16 18:59 06:59 18:59 Intake Total 3908.645 7105.042 158.896 Output Total 880 1395 80 Balance 487.041 164.042 78.896 Weight 89.4 kg 94.8 kg Intake: IV 240 240 20 Lactated Ringers 1,000 ml 240 240 20 @ 20 mls/hr IV .Q24H [facility] Rx#:[id number] Intake, IV Titration 242.041 434.042 138.896 Amount ACETAMINOPHEN IV (For NPO 100 ) 1,000 mg In Empty Bag 1 bag @ 400 mls/hr IVPB Q6HR PRN Rx#:[id number] Insulin Regular 100 unit 56.798 74.381 38.896 In Sodium Chloride 0.9% 100 ml @ Per Protocol IV .Q0M [facility] Rx#:[id number] Piperacillin-Tazobactam 3 100 .375 gm In Dextrose/Water 1 50ml.bag @ 12.5 mls/hr IVPB Q8H [facility] Rx#: [id number] Propofol 1,000 mg In 100 185.243 159.661 100 ml @ Titrate IV .Q0M [facility] Rx#:[id number] Tube Feeding 825 825 0 Other 60 60 Output: Chest Tube Drainage 95 110 5 Bilateral Mediastinal 5 Chest Tube Left Lateral 90 110 5 Chest Urine 785 1285 75 Other: Voiding Method Indwelling Catheter Indwelling Catheter ABP, PAP, CO, CI - Last Documented Arterial Blood Pressure 125/54 Pulmonary Artery Pressure 27/13 Cardiac Output 9.2 Cardiac Index 4.5 - Constitutional General appearance: Present: no acute distress, obese - Respiratory Details: Lungs sounds very coarse throughout. Respirations tachypneic but even on mechanical ventilation. Current ventilator settings assist control mode, FiO2 40%, tidal volume 400, respiratory rate 22, PEEP 0. Left pleural chest tube to -20 cm wall suction, 85 mL serous output overnight, 190 mL last 24 hours. - Cardiovascular Details: S1, S2 present. Regular rate and rhythm, sinus rhythm to sinus tach on telemetry. Sternum stable. A for surgery cardio pacemaker wires present, capped. Right radial arterial line, left internal jugular triple-lumen central line present. Teds/SCDs present. Trace nonpitting edema present bilateral upper extremities. Palpable pulses bilaterally. - Gastrointestinal Gastrointestinal Comment(s): Abdomen soft, nontender, nondistended. Hypoactive bowel sounds present. Tube feeding currently being held, patient with minimal residual. OG tube present. - Genitourinary Genitourinary Comment(s): Rosario present draining clear, yellow urine. Output 75-225 mL per hour. - Integumentary Integumentary Comment(s): Anterior chest incision well approximated, dry intact dressing. Left lower extremity EVH site well approximated. Hematoma mostly resolved. - Neurologic Neurologic Comment(s): Currently sedated on mechanical ventilation. With sedation off yesterday patient moves right side completely; left side withdraws to painful stimuli, occasional nonpurposeful movement of left side. Patient did have positive Babinski on the left side when off sedation. - Allied health notes Allied health notes reviewed: nursing - Labs CBC & Chem 7: 10/15/16 03:40 10/15/16 03:40 Labs: Abnormal Lab Results - Last 24 Hours (Table) 10/14/16 10/14/16 10/14/16 Range/Units 10:03 10:09 13:18 WBC (3.8-10.6) k/uL RBC (4.30-5.90) m/uL Hgb (13.0-17.5) gm/dL Hct (39.0-53.0) % Neutrophils # (1.3-7.7) k/uL Lymphocytes # (1.0-4.8) k/uL PT (9.0-12.0) sec INR (<1.2) ABG pH (7.35-7.45) ABG pCO2 (35-45) mmHg ABG pO2 (83-108) mmHg ABG Total CO2 (19-24) mmol/L Chloride (98-107) mmol/L BUN (9-20) mg/dL Glucose (74-99) mg/dL POC Glucose (mg/dL) 213 H 212 H 191 H (75-99) mg/dL Total Protein (6.3-8.2) g/dL Albumin (3.5-5.0) g/dL 10/14/16 10/14/16 10/14/16 Range/Units 14:26 15:56 16:40 WBC (3.8-10.6) k/uL RBC (4.30-5.90) m/uL Hgb (13.0-17.5) gm/dL Hct (39.0-53.0) % Neutrophils # (1.3-7.7) k/uL Lymphocytes # (1.0-4.8) k/uL PT (9.0-12.0) sec INR (<1.2) ABG pH (7.35-7.45) ABG pCO2 (35-45) mmHg ABG pO2 (83-108) mmHg ABG Total CO2 (19-24) mmol/L Chloride (98-107) mmol/L BUN (9-20) mg/dL Glucose (74-99) mg/dL POC Glucose (mg/dL) 146 H 133 H 138 H (75-99) mg/dL Total Protein (6.3-8.2) g/dL Albumin (3.5-5.0) g/dL 10/14/16 10/14/16 10/14/16 Range/Units 18:33 19:51 22:11 WBC (3.8-10.6) k/uL RBC (4.30-5.90) m/uL Hgb (13.0-17.5) gm/dL Hct (39.0-53.0) % Neutrophils # (1.3-7.7) k/uL Lymphocytes # (1.0-4.8) k/uL PT (9.0-12.0) sec INR (<1.2) ABG pH (7.35-7.45) ABG pCO2 (35-45) mmHg ABG pO2 (83-108) mmHg ABG Total CO2 (19-24) mmol/L Chloride (98-107) mmol/L BUN (9-20) mg/dL Glucose (74-99) mg/dL POC Glucose (mg/dL) 162 H 200 H 198 H (75-99) mg/dL Total Protein (6.3-8.2) g/dL Albumin (3.5-5.0) g/dL 10/15/16 10/15/16 10/15/16 Range/Units 00:22 02:00 02:20 WBC (3.8-10.6) k/uL RBC (4.30-5.90) m/uL Hgb (13.0-17.5) gm/dL Hct (39.0-53.0) % Neutrophils # (1.3-7.7) k/uL Lymphocytes # (1.0-4.8) k/uL PT (9.0-12.0) sec INR (<1.2) ABG pH (7.35-7.45) ABG pCO2 (35-45) mmHg ABG pO2 (83-108) mmHg ABG Total CO2 (19-24) mmol/L Chloride (98-107) mmol/L BUN (9-20) mg/dL Glucose (74-99) mg/dL POC Glucose (mg/dL) 190 H 177 H 211 H (75-99) mg/dL Total Protein (6.3-8.2) g/dL Albumin (3.5-5.0) g/dL 10/15/16 10/15/16 10/15/16 Range/Units 03:40 03:40 03:40 WBC 12.3 H (3.8-10.6) k/uL RBC 2.79 L (4.30-5.90) m/uL Hgb 8.0 L (13.0-17.5) gm/dL Hct 24.2 L (39.0-53.0) % Neutrophils # 10.6 H (1.3-7.7) k/uL Lymphocytes # 0.7 L (1.0-4.8) k/uL PT 12.1 H (9.0-12.0) sec INR 1.2 H (<1.2) ABG pH (7.35-7.45) ABG pCO2 (35-45) mmHg ABG pO2 (83-108) mmHg ABG Total CO2 (19-24) mmol/L Chloride 111 H (98-107) mmol/L BUN 23 H (9-20) mg/dL Glucose 196 H (74-99) mg/dL POC Glucose (mg/dL) (75-99) mg/dL Total Protein 4.7 L (6.3-8.2) g/dL Albumin 2.6 L (3.5-5.0) g/dL 10/15/16 10/15/16 10/15/16 Range/Units 04:02 04:28 05:48 WBC (3.8-10.6) k/uL RBC (4.30-5.90) m/uL Hgb (13.0-17.5) gm/dL Hct (39.0-53.0) % Neutrophils # (1.3-7.7) k/uL Lymphocytes # (1.0-4.8) k/uL PT (9.0-12.0) sec INR (<1.2) ABG pH 7.46 H (7.35-7.45) ABG pCO2 34 L (35-45) mmHg ABG pO2 73 L (83-108) mmHg ABG Total CO2 25 H (19-24) mmol/L Chloride (98-107) mmol/L BUN (9-20) mg/dL Glucose (74-99) mg/dL POC Glucose (mg/dL) 207 H 197 H (75-99) mg/dL Total Protein (6.3-8.2) g/dL Albumin (3.5-5.0) g/dL 10/15/16 Range/Units 08:34 WBC (3.8-10.6) k/uL RBC (4.30-5.90) m/uL Hgb (13.0-17.5) gm/dL Hct (39.0-53.0) % Neutrophils # (1.3-7.7) k/uL Lymphocytes # (1.0-4.8) k/uL PT (9.0-12.0) sec INR (<1.2) ABG pH (7.35-7.45) ABG pCO2 (35-45) mmHg ABG pO2 (83-108) mmHg ABG Total CO2 (19-24) mmol/L Chloride (98-107) mmol/L BUN (9-20) mg/dL Glucose (74-99) mg/dL POC Glucose (mg/dL) 123 H (75-99) mg/dL Total Protein (6.3-8.2) g/dL Albumin (3.5-5.0) g/dL Microbiology - Last 24 Hours (Table) 10/13/16 20:20 Urine Culture - Final Urine,Catheterized 10/13/16 20:20 Blood Culture - Preliminary Blood No Growth after 24 hours - Imaging and Cardiology Chest x-ray: report reviewed, image reviewed Assessment and Plan (1) Tobacco dependence in remission Status: Acute (2) Recovering alcoholic in remission Status: Acute (3) Drug addiction in remission Status: Acute (4) Bipolar 1 disorder Status: Acute (5) CHF NYHA class III (symptoms with mildly strenuous activities) Status: Acute (6) COPD (chronic obstructive pulmonary disease) Status: Acute (7) Coronary artery disease Status: Acute (8) Hypertension Status: Acute (9) Non-STEMI (non-ST elevated myocardial infarction) Status: Acute (10) Uncontrolled type 2 diabetes mellitus Status: Acute Plan: 1. Continue aspirin, statin, Plavix, heparin subcu, caleb. Will maximize beta caleb therapy as tolerated. 2. Continue oral Cardizem for radial artery spasm prevention. 3. Ventilator management per pulmonary services. Wean O2 as tolerated. Daily CPAP trials. 4. Tylenol ordered. Antibiotic management per pulmonology services. Await cultures. 5. Appreciate further neurology recommendations. Will continue with aspirin, statin, Plavix, blood pressure control, PT/OT as tolerated for stroke treatment. 6. Continue tube feeding for nutritional support. 7. Insulin management per primary care service. 8. GI/DVT prophylaxis. 9. Will monitor daily labs, x-rays. 10. Keep Rosario catheter for strict accurate I and O's. 11. More recommendations as patient progresses. Time with Patient: Greater than 30 <Ramesh Klein - Last Filed: 10/15/16 10:22> Objective - Vital Signs Vital signs: Vital Signs Temp 99.2 F 10/15/16 08:00 Pulse 98 10/15/16 09:00 Resp 25 H 10/15/16 09:00 BP 114/71 10/14/16 06:00 Pulse Ox 94 L 10/15/16 09:00 Intake & Output 10/14/16 10/15/16 10/15/16 18:59 06:59 18:59 Intake Total 9453.367 8997.042 278.896 Output Total 880 1395 205 Balance 487.041 164.042 73.896 Weight 89.4 kg 94.8 kg 94.8 kg Intake: IV 240 240 20 Lactated Ringers 1,000 ml 240 240 20 @ 20 mls/hr IV .Q24H [facility] Rx#:[id number] Intake, IV Titration 242.041 434.042 138.896 Amount ACETAMINOPHEN IV (For NPO 100 ) 1,000 mg In Empty Bag 1 bag @ 400 mls/hr IVPB Q6HR PRN Rx#:[id number] Insulin Regular 100 unit 56.798 74.381 38.896 In Sodium Chloride 0.9% 100 ml @ Per Protocol IV .Q0M [facility] Rx#:[id number] Piperacillin-Tazobactam 3 100 .375 gm In Dextrose/Water 1 50ml.bag @ 12.5 mls/hr IVPB Q8H [facility] Rx#: [id number] Propofol 1,000 mg In 100 185.243 159.661 100 ml @ Titrate IV .Q0M [facility] Rx#:[id number] Tube Feeding 825 825 0 Other 60 60 120 Output: Chest Tube Drainage 95 110 5 Bilateral Mediastinal 5 Chest Tube Left Lateral 90 110 5 Chest Urine 785 1285 200 Other: Voiding Method Indwelling Catheter Indwelling Catheter Indwelling Catheter ABP, PAP, CO, CI - Last Documented Arterial Blood Pressure 146/61 Pulmonary Artery Pressure 27/13 Cardiac Output 9.2 Cardiac Index 4.5 - Labs CBC & Chem 7: 10/15/16 03:40 10/15/16 03:40 Labs: Abnormal Lab Results - Last 24 Hours (Table) 10/14/16 10/14/16 10/14/16 Range/Units 13:18 14:26 15:56 WBC (3.8-10.6) k/uL RBC (4.30-5.90) m/uL Hgb (13.0-17.5) gm/dL Hct (39.0-53.0) % Neutrophils # (1.3-7.7) k/uL Lymphocytes # (1.0-4.8) k/uL PT (9.0-12.0) sec INR (<1.2) ABG pH (7.35-7.45) ABG pCO2 (35-45) mmHg ABG pO2 (83-108) mmHg ABG Total CO2 (19-24) mmol/L Chloride (98-107) mmol/L BUN (9-20) mg/dL Glucose (74-99) mg/dL POC Glucose (mg/dL) 191 H 146 H 133 H (75-99) mg/dL Total Protein (6.3-8.2) g/dL Albumin (3.5-5.0) g/dL 10/14/16 10/14/16 10/14/16 Range/Units 16:40 18:33 19:51 WBC (3.8-10.6) k/uL RBC (4.30-5.90) m/uL Hgb (13.0-17.5) gm/dL Hct (39.0-53.0) % Neutrophils # (1.3-7.7) k/uL Lymphocytes # (1.0-4.8) k/uL PT (9.0-12.0) sec INR (<1.2) ABG pH (7.35-7.45) ABG pCO2 (35-45) mmHg ABG pO2 (83-108) mmHg ABG Total CO2 (19-24) mmol/L Chloride (98-107) mmol/L BUN (9-20) mg/dL Glucose (74-99) mg/dL POC Glucose (mg/dL) 138 H 162 H 200 H (75-99) mg/dL Total Protein (6.3-8.2) g/dL Albumin (3.5-5.0) g/dL 10/14/16 10/15/16 10/15/16 Range/Units 22:11 00:22 02:00 WBC (3.8-10.6) k/uL RBC (4.30-5.90) m/uL Hgb (13.0-17.5) gm/dL Hct (39.0-53.0) % Neutrophils # (1.3-7.7) k/uL Lymphocytes # (1.0-4.8) k/uL PT (9.0-12.0) sec INR (<1.2) ABG pH (7.35-7.45) ABG pCO2 (35-45) mmHg ABG pO2 (83-108) mmHg ABG Total CO2 (19-24) mmol/L Chloride (98-107) mmol/L BUN (9-20) mg/dL Glucose (74-99) mg/dL POC Glucose (mg/dL) 198 H 190 H 177 H (75-99) mg/dL Total Protein (6.3-8.2) g/dL Albumin (3.5-5.0) g/dL 10/15/16 10/15/16 10/15/16 Range/Units 02:20 03:40 03:40 WBC 12.3 H (3.8-10.6) k/uL RBC 2.79 L (4.30-5.90) m/uL Hgb 8.0 L (13.0-17.5) gm/dL Hct 24.2 L (39.0-53.0) % Neutrophils # 10.6 H (1.3-7.7) k/uL Lymphocytes # 0.7 L (1.0-4.8) k/uL PT 12.1 H (9.0-12.0) sec INR 1.2 H (<1.2) ABG pH (7.35-7.45) ABG pCO2 (35-45) mmHg ABG pO2 (83-108) mmHg ABG Total CO2 (19-24) mmol/L Chloride (98-107) mmol/L BUN (9-20) mg/dL Glucose (74-99) mg/dL POC Glucose (mg/dL) 211 H (75-99) mg/dL Total Protein (6.3-8.2) g/dL Albumin (3.5-5.0) g/dL 10/15/16 10/15/16 10/15/16 Range/Units 03:40 04:02 04:28 WBC (3.8-10.6) k/uL RBC (4.30-5.90) m/uL Hgb (13.0-17.5) gm/dL Hct (39.0-53.0) % Neutrophils # (1.3-7.7) k/uL Lymphocytes # (1.0-4.8) k/uL PT (9.0-12.0) sec INR (<1.2) ABG pH 7.46 H (7.35-7.45) ABG pCO2 34 L (35-45) mmHg ABG pO2 73 L (83-108) mmHg ABG Total CO2 25 H (19-24) mmol/L Chloride 111 H (98-107) mmol/L BUN 23 H (9-20) mg/dL Glucose 196 H (74-99) mg/dL POC Glucose (mg/dL) 207 H (75-99) mg/dL Total Protein 4.7 L (6.3-8.2) g/dL Albumin 2.6 L (3.5-5.0) g/dL 10/15/16 10/15/16 Range/Units 05:48 08:34 WBC (3.8-10.6) k/uL RBC (4.30-5.90) m/uL Hgb (13.0-17.5) gm/dL Hct (39.0-53.0) % Neutrophils # (1.3-7.7) k/uL Lymphocytes # (1.0-4.8) k/uL PT (9.0-12.0) sec INR (<1.2) ABG pH (7.35-7.45) ABG pCO2 (35-45) mmHg ABG pO2 (83-108) mmHg ABG Total CO2 (19-24) mmol/L Chloride (98-107) mmol/L BUN (9-20) mg/dL Glucose (74-99) mg/dL POC Glucose (mg/dL) 197 H 123 H (75-99) mg/dL Total Protein (6.3-8.2) g/dL Albumin (3.5-5.0) g/dL Microbiology - Last 24 Hours (Table) 10/12/16 19:25 Gram Stain - Final Sputum Sputum Culture - Final 10/13/16 20:20 Urine Culture - Final Urine,Catheterized 10/13/16 20:20 Blood Culture - Preliminary Blood No Growth after 24 hours Assessment and Plan Plan: The patient was seen and examined. I agree with the above assessment and plan. He is currently off sedation and we are monitoring his neurological status. Neurology is following him. He did run a fever last night. Antibiotics were started though this may be central in nature. From a hemodynamic standpoint he appears to be stable. We will keep his pleural chest tube. He is receiving tube feeds. His kidney function is normal. We will continue with supportive care for now and see how his neurological status pans out.
--- NOTE | 2016-10-15 09:50 | PN ---
PROGRESS NOTE DATE OF SERVICE: 10/14/2016. SUBJECTIVE: A 50-year-old, white male, who appears to be intubated. He is moving his left leg and left arm today. CT scan was reviewed with the family, ICU team, Dr. Olmos. Possible CVA. Cardiac medications will be continued. Temp 99, pulse 80, respiratory rate 15, blood pressure 114/71, O2 of 97% on room air. Remains on the ventilator. ET tube is in good position. Hemoglobin 7.5. Normal renal function. He is going to try sedation holiday to see his mental status. He has some ischemic changes on the right on the CT scan. Weakness and . Positive Babinski on the left. and secretions. ASSESSMENT: 1. Status post day four of 4-vessel bypass. 2. Acute cerebrovascular accident with left-sided weakness. 3. Acute respiratory failure with decreased responsiveness. 4. Small postoperative bilateral pleural effusions, left-sided chest tube in place. 5. Diffuse coronary artery disease status post myocardial infarction, diabetes mellitus type 2, hypertension, dyslipidemia, anemia, chronic obstructive pulmonary disease, recovered alcohol and drug addict, bipolar. PLAN: Sedation holiday, Coumadin, possibly extubation will be done. We will monitor him and see how he does. ICU time of 30 minutes. MMODL / IJN: [id number] /
[2016-10-15 10:21] LABS: Glucose,Whole Blood 146 mg/dL (75-99)
[2016-10-15 12:18] LABS: Glucose,Whole Blood 216 mg/dL (75-99)
--- NOTE | 2016-10-15 12:58 | P.PN ---
Subjective On 10/14/2016 I'm seeing this patient for Dr. Ramírez. I reviewed the records and examined the patient. Based on my review, the patient has undergone coronary artery bypass surgery and is postop day #4. Postoperative the patient was extubated blood any major difficulties. He continued to have change in mental status and there was suspicion for a left-sided CVA. The patient has had serial CAT scans the most recent CAT scan of which was done this morning it showed some abnormalities consistent with ischemic changes on the right. Clinically is having some weakness and deficits on the left than on the neurologic exam the patient has positive Babinski on the left. Note that the patient was having difficulty in swallowing including his S2 secretions. Based on that he had to be reintubated. Currently is on assist-control mode of ventilation at the rate of 22, tidal volume of 400, FiO2 of 50% and a PEEP of 0. His blood gases from this morning showed a pH of 7.47 with a pCO2 of 37 and pO2 of 80. Peak airway pressures around 16. He has some few scattered rhonchi and crackles in the lung bases. On today's chest x-ray, there is cardiomegaly, ET tube is in good location, he has a left IJ triple-lumen catheter, he has a left-sided chest tube, he has pulmonary vessel congestion and small effusion specially on the right. He was given 20 mg of IV Lasix this morning. Is producing adequate amount of urine output. He is afebrile for now. His hemoglobin is at 7.5. He has normal renal function. A sedation holiday will be given time to assess and evaluate his mental status. He is on aspirin. His cardiac rhythm is sinus. On 2016 the patient is being seen in follow-up for Dr. Ramírez. The patient remains unresponsive. Sedation was discontinued this morning and I am still awaiting for this patient to show some neurologic recovery and neurologic examination will be done once the effect of this patient is completely gone. The same was done yesterday and the patient had to be placed back on sedation because of increased autonomic response including blood pressure heart rate and respiratory rate. Negative rate, it was noted that the patient is not moving his left side and stroke has likely occurred nontender the patient has signs of upper motor neuron and damage and positive Babinski. The patient remains on a mechanical ventilator. His assist-control mode of ventilation. He is a rate of 22, tidal volume 400 and FiO2 of 40% and 0 PEEP. He is not having major respiratory secretions. Chest x-ray today shows stable postsurgical changes. Examination of the right lung bases improved. He was producing some rest or secretions and a culture was done at a time of reintubation and the results are still pending. Meanwhile the patient started having some episodes of fever on and off for which was started on empiric antibiotics with IV Zosyn. Hemodynamically remains stable. He is receiving his enteral feeding without any major difficulties. He is tolerating his diet. His cardiac rhythm is sinus. No other significant issues otherwise for now. Neurologist on the case. CAT scan of the brain from yesterday was reviewed. Objective - Vital Signs Vital signs: Vital Signs Temp 100.1 F H 10/15/16 12:00 Pulse 96 10/15/16 12:00 Resp 27 H 10/15/16 12:00 BP 114/71 10/14/16 06:00 Pulse Ox 94 L 10/15/16 12:00 Intake & Output 10/14/16 10/15/16 10/15/16 18:59 06:59 18:59 Intake Total 0718.962 0241.042 504.652 Output Total 880 1395 330 Balance 487.041 164.042 174.652 Weight 89.4 kg 94.8 kg 94.8 kg Intake: IV 240 240 60 Lactated Ringers 1,000 ml 240 240 60 @ 20 mls/hr IV .Q24H [facility] Rx#:[id number] Intake, IV Titration 242.041 434.042 159.652 Amount ACETAMINOPHEN IV (For NPO 100 ) 1,000 mg In Empty Bag 1 bag @ 400 mls/hr IVPB Q6HR PRN Rx#:[id number] Insulin Regular 100 unit 56.798 74.381 59.652 In Sodium Chloride 0.9% 100 ml @ Per Protocol IV .Q0M [facility] Rx#:[id number] Piperacillin-Tazobactam 3 100 .375 gm In Dextrose/Water 1 50ml.bag @ 12.5 mls/hr IVPB Q8H [facility] Rx#: [id number] Propofol 1,000 mg In 100 185.243 159.661 100 ml @ Titrate IV .Q0M [facility] Rx#:[id number] Tube Feeding 825 825 165 Other 60 60 120 Output: Chest Tube Drainage 95 110 5 Bilateral Mediastinal 5 Chest Tube Left Lateral 90 110 5 Chest Urine 785 1285 325 Other: Voiding Method Indwelling Catheter Indwelling Catheter Indwelling Catheter ABP, PAP, CO, CI - Last Documented Arterial Blood Pressure 131/56 Pulmonary Artery Pressure 27/13 Cardiac Output 9.2 Cardiac Index 4.5 - Exam GENERAL EXAM: On mechanical ventilation with propofol for sedation, the orogastric and orotracheal tube are both in place. He has a left IJ triple- lumen catheter. HEAD: Normocephalic. EYES: Normal reaction of pupils, equal size. NOSE: Clear with pink turbinates. THROAT: No erythema or exudates. NECK: No masses, no JVD. CHEST: No chest wall deformity. The anterior chest wall incision with dressing clean dry and intact. LUNGS: Lungs are noted to be coarse throughout with some fine expiratory wheezing noted. Bases diminished. CVS: S1 and S2 normal with no audible mumurs, regular rhythm. The patient has stable sternal wound. No evidence of any bleeding. The left-sided chest tube is in place. ABDOMEN: No hepatosplenomegaly, normal bowel sounds, no guarding or rigidity. EXTREMITIES: No edema noted, pedal pulses palpable. Left lower extremity site clean dry and intact, JOSE drain present with minimal drainage, left radial harvest site clean dry and intact. SKIN: No rashes CENTRAL NERVOUS SYSTEM: On mechanical ventilation with propofol for sedation, withdraws from painful stimuli, during sedation holiday the patient is noted to have a grade 2 out of 5 upper extremity neglect right side remains 5 out of 5. He has a possible Babinski on the left. No clonus. No facial asymmetry. Pupils are equal and reactive to light. - Labs CBC & Chem 7: 10/15/16 03:40 10/15/16 03:40 Labs: Abnormal Lab Results - Last 24 Hours (Table) 10/14/16 10/14/16 10/14/16 Range/Units 13:18 14:26 15:56 WBC (3.8-10.6) k/uL RBC (4.30-5.90) m/uL Hgb (13.0-17.5) gm/dL Hct (39.0-53.0) % Neutrophils # (1.3-7.7) k/uL Lymphocytes # (1.0-4.8) k/uL PT (9.0-12.0) sec INR (<1.2) ABG pH (7.35-7.45) ABG pCO2 (35-45) mmHg ABG pO2 (83-108) mmHg ABG Total CO2 (19-24) mmol/L Chloride (98-107) mmol/L BUN (9-20) mg/dL Glucose (74-99) mg/dL POC Glucose (mg/dL) 191 H 146 H 133 H (75-99) mg/dL Total Protein (6.3-8.2) g/dL Albumin (3.5-5.0) g/dL 10/14/16 10/14/16 10/14/16 Range/Units 16:40 18:33 19:51 WBC (3.8-10.6) k/uL RBC (4.30-5.90) m/uL Hgb (13.0-17.5) gm/dL Hct (39.0-53.0) % Neutrophils # (1.3-7.7) k/uL Lymphocytes # (1.0-4.8) k/uL PT (9.0-12.0) sec INR (<1.2) ABG pH (7.35-7.45) ABG pCO2 (35-45) mmHg ABG pO2 (83-108) mmHg ABG Total CO2 (19-24) mmol/L Chloride (98-107) mmol/L BUN (9-20) mg/dL Glucose (74-99) mg/dL POC Glucose (mg/dL) 138 H 162 H 200 H (75-99) mg/dL Total Protein (6.3-8.2) g/dL Albumin (3.5-5.0) g/dL 10/14/16 10/15/16 10/15/16 Range/Units 22:11 00:22 02:00 WBC (3.8-10.6) k/uL RBC (4.30-5.90) m/uL Hgb (13.0-17.5) gm/dL Hct (39.0-53.0) % Neutrophils # (1.3-7.7) k/uL Lymphocytes # (1.0-4.8) k/uL PT (9.0-12.0) sec INR (<1.2) ABG pH (7.35-7.45) ABG pCO2 (35-45) mmHg ABG pO2 (83-108) mmHg ABG Total CO2 (19-24) mmol/L Chloride (98-107) mmol/L BUN (9-20) mg/dL Glucose (74-99) mg/dL POC Glucose (mg/dL) 198 H 190 H 177 H (75-99) mg/dL Total Protein (6.3-8.2) g/dL Albumin (3.5-5.0) g/dL 10/15/16 10/15/16 10/15/16 Range/Units 02:20 03:40 03:40 WBC 12.3 H (3.8-10.6) k/uL RBC 2.79 L (4.30-5.90) m/uL Hgb 8.0 L (13.0-17.5) gm/dL Hct 24.2 L (39.0-53.0) % Neutrophils # 10.6 H (1.3-7.7) k/uL Lymphocytes # 0.7 L (1.0-4.8) k/uL PT 12.1 H (9.0-12.0) sec INR 1.2 H (<1.2) ABG pH (7.35-7.45) ABG pCO2 (35-45) mmHg ABG pO2 (83-108) mmHg ABG Total CO2 (19-24) mmol/L Chloride (98-107) mmol/L BUN (9-20) mg/dL Glucose (74-99) mg/dL POC Glucose (mg/dL) 211 H (75-99) mg/dL Total Protein (6.3-8.2) g/dL Albumin (3.5-5.0) g/dL 10/15/16 10/15/16 10/15/16 Range/Units 03:40 04:02 04:28 WBC (3.8-10.6) k/uL RBC (4.30-5.90) m/uL Hgb (13.0-17.5) gm/dL Hct (39.0-53.0) % Neutrophils # (1.3-7.7) k/uL Lymphocytes # (1.0-4.8) k/uL PT (9.0-12.0) sec INR (<1.2) ABG pH 7.46 H (7.35-7.45) ABG pCO2 34 L (35-45) mmHg ABG pO2 73 L (83-108) mmHg ABG Total CO2 25 H (19-24) mmol/L Chloride 111 H (98-107) mmol/L BUN 23 H (9-20) mg/dL Glucose 196 H (74-99) mg/dL POC Glucose (mg/dL) 207 H (75-99) mg/dL Total Protein 4.7 L (6.3-8.2) g/dL Albumin 2.6 L (3.5-5.0) g/dL 10/15/16 10/15/16 10/15/16 Range/Units 05:48 08:34 10:19 WBC (3.8-10.6) k/uL RBC (4.30-5.90) m/uL Hgb (13.0-17.5) gm/dL Hct (39.0-53.0) % Neutrophils # (1.3-7.7) k/uL Lymphocytes # (1.0-4.8) k/uL PT (9.0-12.0) sec INR (<1.2) ABG pH (7.35-7.45) ABG pCO2 (35-45) mmHg ABG pO2 (83-108) mmHg ABG Total CO2 (19-24) mmol/L Chloride (98-107) mmol/L BUN (9-20) mg/dL Glucose (74-99) mg/dL POC Glucose (mg/dL) 197 H 123 H 146 H (75-99) mg/dL Total Protein (6.3-8.2) g/dL Albumin (3.5-5.0) g/dL 10/15/16 Range/Units 12:16 WBC (3.8-10.6) k/uL RBC (4.30-5.90) m/uL Hgb (13.0-17.5) gm/dL Hct (39.0-53.0) % Neutrophils # (1.3-7.7) k/uL Lymphocytes # (1.0-4.8) k/uL PT (9.0-12.0) sec INR (<1.2) ABG pH (7.35-7.45) ABG pCO2 (35-45) mmHg ABG pO2 (83-108) mmHg ABG Total CO2 (19-24) mmol/L Chloride (98-107) mmol/L BUN (9-20) mg/dL Glucose (74-99) mg/dL POC Glucose (mg/dL) 216 H (75-99) mg/dL Total Protein (6.3-8.2) g/dL Albumin (3.5-5.0) g/dL Microbiology - Last 24 Hours (Table) 10/12/16 19:25 Gram Stain - Final Sputum Sputum Culture - Final 10/13/16 20:20 Urine Culture - Final Urine,Catheterized 10/13/16 20:20 Blood Culture - Preliminary Blood No Growth after 24 hours Assessment and Plan Plan: Assessment 1 coronary artery bypass surgery, patient had four-vessel bypass and the patient is postop day #5 2 acute CVA with left-sided weakness. The patient had diminished level of consciousness and difficulty in handling indicating his respiratory secretions and based on that he had to be reintubated. The patient is being given another sedation holiday and his underlying neurologic function will be readdressed. He does not have a clear sensorium. Obviously he is not a good candidate for any weaning trials of extubation today. 3 acute respiratory failure, secondary to diminished level of consciousness and inability to clear rest or secretions. This was done prophylactically to secure an airway. The patient continues to be on a mechanical ventilator and the chest x-ray shows no acute abnormalities. 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 13 bipolar disorder 14 episodic fever and the patient is being cultured and the patient was started on IV Zosyn as an empiric antibiotic coverage. Plan Monitor the neurologic functions. Keep the patient off sedation and will do a complete neurologic exam once the patient is more alert and he is out of the influence of the prevent. Neurologist on the case. CAT scan of the brain that was done yesterday was reviewed. There is an obvious concern of a left-sided CVA negative the patient has left-sided paralysis and positive Babinski on the left. The patient will be kept intubated. Sputum cultures have been sent and the results are still pending. Blood cultures have been sent. IV Zosyn is being utilized as an empiric antibiotic coverage. Hemodynamically stable. We' ll continue to follow. Continue supportive care. Continue enteral feeding for nutritional support. Critically care evaluation. Done and 32 minutes. Time with Patient: Greater than 30
[2016-10-15 14:06] LABS: Glucose,Whole Blood 220 mg/dL (75-99)
[2016-10-15] MEDS: INSULIN REGULAR 100 UNIT in SODIUM CHLORIDE 0.9% 100 ML IV SCH (14:07)
[2016-10-15 16:12] LABS: Glucose,Whole Blood 203 mg/dL (75-99)
[2016-10-15] MEDS: LACTATED RINGERS 1,000 ML IV SCH (16:25)
[2016-10-15] MEDS: MORPHINE SULFATE 2 MG/ML SYRINGE IVP PRN (16:51)
[2016-10-15 18:03] LABS: Glucose,Whole Blood 213 mg/dL (75-99)
[2016-10-15 20:17] LABS: Glucose,Whole Blood 214 mg/dL (75-99)
[2016-10-15] MEDS: SENNOSIDES-DOCUSATE SODIUM 1 EACH TAB PO SCH (20:54)
[2016-10-15 21:01] LABS: Glucose,Whole Blood 206 mg/dL (75-99)
[2016-10-16 00:22] LABS: Glucose,Whole Blood 116 mg/dL (75-99)
--- NOTE | 2016-10-16 00:47 | P.PN ---
Subjective Principal diagnosis: left-sided weakness, rule out CVA October 15, 2016: Patient's physical status has decreased since last rounding. Previous rounding noted some response and grasp with right hand that is no longer present on rounding today. Patient has begun having a fever that was noted by nursing at 103 F. Patient is currently on IV antibiotics. Patient is resting and in no acute distress. October 14, 2016: Patient's physical status remains unchanged. Patient was found supine in bed on a ventilator in the. Patient was in no acute distress. Family was at the bedside. Patient did have a CT of the brain today. It noted no acute intracranial hemorrhage or midline shift. Mild diffuse age-related cerebral atrophy seen. Continued progression of moderate to severe nonspecific white matter changes since admission raising concern for acute ischemia. Supervising physician reviewed the report and we will continue to manage as ischemic stroke at this point. Lipid panel noted triglycerides 163, cholesterol 61, LDL at 9 and HDL at 19. serum homocysteine level was normal at 4.4. Carotid Dopplers noted no evidence of hemodynamically significant stenosis on the right, left is not visualized to the line. EEG was noted as previously abnormal. Noted mild encephalopathy. Patient is currently on aspirin 325 mg, Lipitor 40 mg. continue neuro checks every shift. October 13, 2016: Patient is a 50-year-old male being followed by neurology who is status post bypass graft 4. Patient had left-sided weakness post procedure. Patient reportedly maintained difficulty moving the left upper extremity and neurology was consulted yesterday. EEG was ordered and obtained. Patient is currently on aspirin, Plavix, atorvastatin, diltiazem, beta blockers. Patient is currently in the ICU on ventilator and is sedated, resting in no acute distress. Nursing staff reports that patient had difficulty moving his left upper extremity status post surgery. CT of the brain was conducted October 11, October 12 and will be repeated again tomorrow. Supervising physician examined the patient yesterday. Objective - Vital Signs Vital signs: Vital Signs Temp 98.7 F 10/15/16 20:00 Pulse 74 10/15/16 23:00 Resp 21 10/15/16 23:00 BP 114/71 10/14/16 06:00 Pulse Ox 97 10/15/16 23:00 Intake & Output 10/15/16 10/15/16 10/16/16 06:59 18:59 06:59 Intake Total 0731.308 8331.702 650.212 Output Total 1395 1210 455 Balance 164.042 98.702 195.212 Weight 94.8 kg 94.8 kg Intake: IV 240 160 100 Lactated Ringers 1,000 ml 240 160 100 @ 20 mls/hr IV .Q24H [facility] Rx#:[id number] Intake, IV Titration 434.042 308.702 190.212 Amount ACETAMINOPHEN IV (For NPO 100 100 ) 1,000 mg In Empty Bag 1 bag @ 400 mls/hr IVPB Q6HR PRN Rx#:[id number] Insulin Regular 100 unit 74.381 108.702 63.119 In Sodium Chloride 0.9% 100 ml @ Per Protocol IV .Q0M [facility] Rx#:[id number] Piperacillin-Tazobactam 3 100 100 .375 gm In Dextrose/Water 1 50ml.bag @ 12.5 mls/hr IVPB Q8H [facility] Rx#: [id number] Propofol 1,000 mg In 100 159.661 100 27.093 ml @ Titrate IV .Q0M [facility] Rx#:[id number] Oral 60 Tube Feeding 825 660 330 Other 60 120 30 Output: Chest Tube Drainage 110 35 50 Chest Tube Left Lateral 110 35 50 Chest Urine 1285 1175 405 Other: Voiding Method Indwelling Catheter Indwelling Catheter Indwelling Catheter # Voids 1 ABP, PAP, CO, CI - Last Documented Arterial Blood Pressure 123/49 Pulmonary Artery Pressure 27/13 Cardiac Output 9.2 Cardiac Index 4.5 - Exam Physical exam was limited. Patient is sedated on ventilator in the ICU. Constitutional: AOx1, sedated HEENT: NC/AT, no facial asymmetry is seen. Throat: Supple, no masses Respiratory: ventilator in use Cardiac: Regular rate and Rhythm Neurological: no seizure activity noted on physical exam. Integementary: no rash, no erythema Psychiatric: mood and affect appropriate - Labs CBC & Chem 7: 10/15/16 03:40 10/15/16 03:40 Labs: Abnormal Lab Results - Last 24 Hours (Table) 10/15/16 10/15/16 10/15/16 Range/Units 02:00 02:20 03:40 WBC 12.3 H (3.8-10.6) k/uL RBC 2.79 L (4.30-5.90) m/uL Hgb 8.0 L (13.0-17.5) gm/dL Hct 24.2 L (39.0-53.0) % Neutrophils # 10.6 H (1.3-7.7) k/uL Lymphocytes # 0.7 L (1.0-4.8) k/uL PT (9.0-12.0) sec INR (<1.2) ABG pH (7.35-7.45) ABG pCO2 (35-45) mmHg ABG pO2 (83-108) mmHg ABG Total CO2 (19-24) mmol/L Chloride (98-107) mmol/L BUN (9-20) mg/dL Glucose (74-99) mg/dL POC Glucose (mg/dL) 177 H 211 H (75-99) mg/dL Total Protein (6.3-8.2) g/dL Albumin (3.5-5.0) g/dL 10/15/16 10/15/16 10/15/16 Range/Units 03:40 03:40 04:02 WBC (3.8-10.6) k/uL RBC (4.30-5.90) m/uL Hgb (13.0-17.5) gm/dL Hct (39.0-53.0) % Neutrophils # (1.3-7.7) k/uL Lymphocytes # (1.0-4.8) k/uL PT 12.1 H (9.0-12.0) sec INR 1.2 H (<1.2) ABG pH (7.35-7.45) ABG pCO2 (35-45) mmHg ABG pO2 (83-108) mmHg ABG Total CO2 (19-24) mmol/L Chloride 111 H (98-107) mmol/L BUN 23 H (9-20) mg/dL Glucose 196 H (74-99) mg/dL POC Glucose (mg/dL) 207 H (75-99) mg/dL Total Protein 4.7 L (6.3-8.2) g/dL Albumin 2.6 L (3.5-5.0) g/dL 10/15/16 10/15/16 10/15/16 Range/Units 04:28 05:48 08:34 WBC (3.8-10.6) k/uL RBC (4.30-5.90) m/uL Hgb (13.0-17.5) gm/dL Hct (39.0-53.0) % Neutrophils # (1.3-7.7) k/uL Lymphocytes # (1.0-4.8) k/uL PT (9.0-12.0) sec INR (<1.2) ABG pH 7.46 H (7.35-7.45) ABG pCO2 34 L (35-45) mmHg ABG pO2 73 L (83-108) mmHg ABG Total CO2 25 H (19-24) mmol/L Chloride (98-107) mmol/L BUN (9-20) mg/dL Glucose (74-99) mg/dL POC Glucose (mg/dL) 197 H 123 H (75-99) mg/dL Total Protein (6.3-8.2) g/dL Albumin (3.5-5.0) g/dL 10/15/16 10/15/16 10/15/16 Range/Units 10:19 12:16 14:04 WBC (3.8-10.6) k/uL RBC (4.30-5.90) m/uL Hgb (13.0-17.5) gm/dL Hct (39.0-53.0) % Neutrophils # (1.3-7.7) k/uL Lymphocytes # (1.0-4.8) k/uL PT (9.0-12.0) sec INR (<1.2) ABG pH (7.35-7.45) ABG pCO2 (35-45) mmHg ABG pO2 (83-108) mmHg ABG Total CO2 (19-24) mmol/L Chloride (98-107) mmol/L BUN (9-20) mg/dL Glucose (74-99) mg/dL POC Glucose (mg/dL) 146 H 216 H 220 H (75-99) mg/dL Total Protein (6.3-8.2) g/dL Albumin (3.5-5.0) g/dL 10/15/16 10/15/16 10/15/16 Range/Units 16:11 18:00 20:15 WBC (3.8-10.6) k/uL RBC (4.30-5.90) m/uL Hgb (13.0-17.5) gm/dL Hct (39.0-53.0) % Neutrophils # (1.3-7.7) k/uL Lymphocytes # (1.0-4.8) k/uL PT (9.0-12.0) sec INR (<1.2) ABG pH (7.35-7.45) ABG pCO2 (35-45) mmHg ABG pO2 (83-108) mmHg ABG Total CO2 (19-24) mmol/L Chloride (98-107) mmol/L BUN (9-20) mg/dL Glucose (74-99) mg/dL POC Glucose (mg/dL) 203 H 213 H 214 H (75-99) mg/dL Total Protein (6.3-8.2) g/dL Albumin (3.5-5.0) g/dL 10/15/16 10/16/16 Range/Units 20:59 00:11 WBC (3.8-10.6) k/uL RBC (4.30-5.90) m/uL Hgb (13.0-17.5) gm/dL Hct (39.0-53.0) % Neutrophils # (1.3-7.7) k/uL Lymphocytes # (1.0-4.8) k/uL PT (9.0-12.0) sec INR (<1.2) ABG pH (7.35-7.45) ABG pCO2 (35-45) mmHg ABG pO2 (83-108) mmHg ABG Total CO2 (19-24) mmol/L Chloride (98-107) mmol/L BUN (9-20) mg/dL Glucose (74-99) mg/dL POC Glucose (mg/dL) 206 H 116 H (75-99) mg/dL Total Protein (6.3-8.2) g/dL Albumin (3.5-5.0) g/dL Microbiology - Last 24 Hours (Table) 10/13/16 20:20 Blood Culture - Preliminary Blood No Growth after 48 hours 10/12/16 19:25 Gram Stain - Final Sputum Sputum Culture - Final 10/13/16 20:20 Urine Culture - Final Urine,Catheterized Assessment and Plan (1) Acute left-sided weakness Status: Acute (2) Coronary artery disease Status: Acute (3) Acute ischemic stroke Status: Acute Plan: 1. Acute left-sided weakness/acute ischemic stroke: Patient has a complex medical history involving psychiatric disorder as well as coronary artery disease with recent CABG 4. Left-sided weakness will be reassessed once the patient is no longer sedated. At this time the patient's EEG is abnormal and noted slowing background rhythm in the theta range. encephalopathy noted. Patient's carotid Dopplers noted no hemodynamically significant stenosis on the right, left could not be completely evaluated due to a line. CT of the brain 2 as noted in imaging comments previously. CT of the brain today noted no acute intracranial hemorrhage or midline shift seen. Mild diffuse age-related cerebral atrophy seen. Continue progression of moderate to severe nonspecific white matter changes since admission raising concern for acute ischemia. Continue with current treatment regimen. Continue neuro checks every shift, DVT prophylaxis and notify neurology with any neurological status changes. Continue aspirin 325 mg by mouth daily, continue Lipitor 40 mg by mouth daily at bedtime. Ordered: MRI Brain, MRA neck to be completed post extubation. Status: Neurology will continue to follow and provide further information is needed or warranted. Feel free to contact our office with any questions I discussed the patient's pertinent medical information with Dr. Maloney. He agrees with the plan of care as implemented.
[2016-10-16] MEDS: PROPOFOL 1,000 MG/100 ML VIAL IV SCH ×2 (01:02→17:30)
[2016-10-16] MEDS: INSULIN REGULAR 100 UNIT in SODIUM CHLORIDE 0.9% 100 ML IV SCH ×3 (02:09→20:26)
[2016-10-16 02:11] LABS: Glucose,Whole Blood 192 mg/dL (75-99)
[2016-10-16 03:56] LABS: Glucose,Whole Blood 218 mg/dL (75-99)
[2016-10-16 04:40] LABS: Basophils % (A) 0 %; CH 30.3; CHCM 35.3; Eosinophils # (A) 0.1 k/uL (0-0.7); Eosinophils % (A) 0 %; HCT 22.3 % (39.0-53.0); HDW 3.79; HGB 7.5 gm/dL (13.0-17.5); Luc # (Auto) 0.17; Luc % (Auto) 1; Lymphocytes # (A) 0.7 k/uL (1.0-4.8); Lymphocytes % (A) 5 %; MCH 29.2 pg (25.0-35.0); MCHC 33.8 g/dL (31.0-37.0); MCV 86.4 fL (80.0-100.0); Monocytes # (A) 0.6 k/uL (0-1.0); Monocytes % (A) 4 %; Neutrophils % (A) 89 %; Poikilocytosis Slight; RBC 2.57 m/uL (4.30-5.90); RDW 14.2 % (11.5-15.5); WBC 14.6 k/uL (3.8-10.6); WBC (Perox) 14.89
[2016-10-16 04:49] LABS: INR 1.3 (<1.2); Prothrombin Time 12.4 sec (9.0-12.0)
[2016-10-16] MEDS: PIPERACILLIN-TAZOBACTAM 3.375 GM in DEXTROSE/WATER 1 50ML.BAG IVPB SCH ×3 (04:52→20:24)
[2016-10-16 05:02] LABS: ALT 34 U/L (21-72); AST 21 U/L (17-59); Alkaline Phosphatase 80 U/L (38-126); Anion Gap 9 mmol/L; Blood Urea Nitrogen 30 mg/dL (9-20); Calcium 8.4 mg/dL (8.4-10.2); Carbon Dioxide 26 mmol/L (22-30); Chloride 109 mmol/L (98-107); Glucose 220 mg/dL (74-99); Magnesium 2.2 mg/dL (1.6-2.3); Non-African American GFR(MDRD) >60 (>60 ml/min/1.73 sqM); Phosphorous 3.4 mg/dL (2.5-4.5); Potassium 3.4 mmol/L (3.5-5.1); Sodium 144 mmol/L (137-145); Total Bilirubin 0.7 mg/dL (0.2-1.3); Total Protein 4.4 g/dL (6.3-8.2)
[2016-10-16 05:54] LABS: ABG Base Excess 2.1 mmol/L; ABG HCO3 25 mmol/L (21-25); ABG PCO2 28 mmHg (35-45); ABG PH 7.55 (7.35-7.45); ABG PO2 77 mmHg (83-108); ABG TCO2 25 mmol/L (19-24)
[2016-10-16 06:24] LABS: Glucose,Whole Blood 221 mg/dL (75-99)
[2016-10-16] MEDS: IPRATROPIUM-ALBUTEROL 3 ML NEB INHALATION SCH ×4 (07:12→19:51)
--- NOTE | 2016-10-16 07:46 | XR ---
EXAMINATION TYPE: XR chest 1V portable DATE OF EXAM: 10/16/2016 CLINICAL HISTORY: Difficulty breathing progress study. TECHNIQUE: Single AP portable upright view of the chest is obtained. COMPARISON: Chest x-ray from one day earlier and older studies. FINDINGS: An endotracheal tube, orogastric tube, and left internal jugular central venous catheter a re all stable in appearance. There is left basilar chest tube redemonstrated. Post CABG changes with mediastinal clips and sternal wires is redemonstrated. There is persistent car diomegaly with central vascular congestion. There is persistent bibasilar opacity consistent with at electasis and/or infiltrate. No large pleural effusion or pneumothorax is present. Osseous structures are intact. IMPRESSION: Overall stable findings, cardiomegaly with central vascular congestion and bibasilar in filtrate and/or atelectasis all redemonstrated.
[2016-10-16 08:00] LABS: Glucose,Whole Blood 226 mg/dL (75-99)
[2016-10-16] MEDS: ASPIRIN 325 MG TAB PO SCH (08:02)
[2016-10-16] MEDS: METOPROLOL TARTRATE 25 MG TAB PO SCH ×2 (08:02→20:25)
[2016-10-16] MEDS: DILTIAZEM ORAL 30 MG TAB PO SCH ×4 (08:02→21:01)
[2016-10-16] MEDS: ATORVASTATIN 40 MG TAB PO SCH (08:02)
[2016-10-16] MEDS: CLOPIDOGREL 75 MG TAB PO SCH (08:02)
[2016-10-16] MEDS: PANTOPRAZOLE 40 MG/10 ML VIAL IVP SCH (08:02)
[2016-10-16] MEDS: CHLORHEXIDINE GLUCONATE 15 ML CUP MUCOUS MEM SCH ×2 (08:03→20:24)
[2016-10-16] MEDS: HEPARIN SODIUM,PORCINE 5,000 UNIT/ML 1 ML VIAL SQ SCH ×3 (08:03→23:38)
[2016-10-16] MEDS: POTASSIUM CHLORIDE ORAL LIQUID 40 MEQ/30 ML CUP NG-TUBE SCH ×3 (08:04→23:54)
--- NOTE | 2016-10-16 09:04 | P.PN ---
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 Family history of coronary artery disease. POD #6 urgent coronary artery bypass graft surgery 4 vessels with the left internal mammary artery to the left anterior descending artery, left radial artery to the ramus artery, reverse saphenous vein graft to the diagonal artery , reverse saphenous vein graft to posterior descending artery, endoscopic vein harvest left greater saphenous vein, endoscopic harvest of left radial artery, intraoperative transesophageal echocardiogram and epi-aortic scanning. Postoperative re-intubation for airway protection. Postoperative ischemic stroke, a potential outcome of surgery. Leukocytosis, possible pneumonia, awaiting sputum culture, preliminary Gram stain demonstrates few gram-positive cocci in clusters, a potential outcome with reintubation. Patient's currently laying in the bed in no acute distress. Remains sedated on mechanical ventilation. Third CT scan demonstrated mild diffuse age-related cerebral atrophy, continued progression of moderate to severe nonspecific white matter changes since admission recent concern for acute ischemia. Objective - Vital Signs Vital signs: Vital Signs Temp 100.4 F H 10/16/16 06:00 Pulse 88 10/16/16 07:32 Resp 27 H 10/16/16 07:00 BP 114/71 10/14/16 06:00 Pulse Ox 94 L 10/16/16 07:00 Intake & Output 10/15/16 10/16/16 10/16/16 18:59 06:59 18:59 Intake Total 7351.581 8503.456 93.77 Output Total 1210 865 45 Balance 98.702 646.456 48.77 Weight 94.8 kg 93.1 kg Intake: IV 160 240 20 Lactated Ringers 1,000 ml 160 240 20 @ 20 mls/hr IV .Q24H [facility] Rx#:[id number] Intake, IV Titration 308.702 356.456 18.77 Amount ACETAMINOPHEN IV (For NPO 100 ) 1,000 mg In Empty Bag 1 bag @ 400 mls/hr IVPB Q6HR PRN Rx#:[id number] Insulin Regular 100 unit 108.702 106.141 18.77 In Sodium Chloride 0.9% 100 ml @ Per Protocol IV .Q0M [facility] Rx#:[id number] Piperacillin-Tazobactam 3 200 .375 gm In Dextrose/Water 1 50ml.bag @ 12.5 mls/hr IVPB Q8H [facility] Rx#: [id number] Propofol 1,000 mg In 100 100 50.315 ml @ Titrate IV .Q0M [facility] Rx#:[id number] Oral 60 Tube Feeding 660 825 55 Other 120 90 Output: Chest Tube Drainage 35 65 Chest Tube Left Lateral 35 65 Chest Urine 1175 800 45 Other: Voiding Method Indwelling Catheter Indwelling Catheter # Voids 1 ABP, PAP, CO, CI - Last Documented Arterial Blood Pressure 135/61 Pulmonary Artery Pressure 27/13 Cardiac Output 9.2 Cardiac Index 4.5 - Constitutional General appearance: Present: no acute distress - Respiratory Details: Lungs sounds diminished and coarse bilaterally. Respirations even, nonlabored on mechanical ventilation. Current ventilator settings assist control mode, FiO2 40%, tidal volume 500, respiratory rate 22, 0 PEEP. Left pleural chest tube to -20 cm wall suction, 50 mL serous drainage overnight, 100 mL last 24 hours. No air leak present. - Cardiovascular Details: S1, S2 present. Regular rate and rhythm, normal sinus rhythm on telemetry. A/ V epicardial pacemaker wires present, capped. Sternum stable. Trace bilateral upper extremity edema present. Palpable pulses bilaterally. Right radial arterial line, left internal jugular triple-lumen central line present. Teds/ SCDs present. - Gastrointestinal Gastrointestinal Comment(s): Abdomen soft, nontender, nondistended. Hypoactive bowel sounds present 4 quadrants. Tolerating tube feedings through OG tube, vital at 55 mL per hour with minimal residual. - Genitourinary Genitourinary Comment(s): Rosario present draining clear, yellow urine. Output 30-75 mL/h overnight. - Integumentary Integumentary Comment(s): Anterior chest incision well approximated. Left upper extremity arterial graft site well approximated. Left lower extremity EVH site well approximated. - Neurologic Neurologic Comment(s): Left arm, leg withdraw to painful stimuli. Positive Babinski left foot. Patient does move right upper and lower extremities. - Psychiatric Psychiatric Comment(s): Currently sedated on mechanical ventilation - Allied health notes Allied health notes reviewed: nursing - Labs CBC & Chem 7: 10/16/16 04:22 10/16/16 04:22 Labs: Abnormal Lab Results - Last 24 Hours (Table) 09/04/0110/15/16 10/15/16 Range/Units 08:34 10:19 12:16 WBC (3.8-10.6) k/uL RBC (4.30-5.90) m/uL Hgb (13.0-17.5) gm/dL Hct (39.0-53.0) % Neutrophils # (1.3-7.7) k/uL Lymphocytes # (1.0-4.8) k/uL PT (9.0-12.0) sec INR (<1.2) ABG pH (7.35-7.45) ABG pCO2 (35-45) mmHg ABG pO2 (83-108) mmHg ABG Total CO2 (19-24) mmol/L Potassium (3.5-5.1) mmol/L Chloride (98-107) mmol/L BUN (9-20) mg/dL Glucose (74-99) mg/dL POC Glucose (mg/dL) 123 H 146 H 216 H (75-99) mg/dL Total Protein (6.3-8.2) g/dL Albumin (3.5-5.0) g/dL 10/15/16 10/15/16 10/15/16 Range/Units 14:04 16:11 18:00 WBC (3.8-10.6) k/uL RBC (4.30-5.90) m/uL Hgb (13.0-17.5) gm/dL Hct (39.0-53.0) % Neutrophils # (1.3-7.7) k/uL Lymphocytes # (1.0-4.8) k/uL PT (9.0-12.0) sec INR (<1.2) ABG pH (7.35-7.45) ABG pCO2 (35-45) mmHg ABG pO2 (83-108) mmHg ABG Total CO2 (19-24) mmol/L Potassium (3.5-5.1) mmol/L Chloride (98-107) mmol/L BUN (9-20) mg/dL Glucose (74-99) mg/dL POC Glucose (mg/dL) 220 H 203 H 213 H (75-99) mg/dL Total Protein (6.3-8.2) g/dL Albumin (3.5-5.0) g/dL 10/15/16 10/15/16 10/16/16 Range/Units 20:15 20:59 00:11 WBC (3.8-10.6) k/uL RBC (4.30-5.90) m/uL Hgb (13.0-17.5) gm/dL Hct (39.0-53.0) % Neutrophils # (1.3-7.7) k/uL Lymphocytes # (1.0-4.8) k/uL PT (9.0-12.0) sec INR (<1.2) ABG pH (7.35-7.45) ABG pCO2 (35-45) mmHg ABG pO2 (83-108) mmHg ABG Total CO2 (19-24) mmol/L Potassium (3.5-5.1) mmol/L Chloride (98-107) mmol/L BUN (9-20) mg/dL Glucose (74-99) mg/dL POC Glucose (mg/dL) 214 H 206 H 116 H (75-99) mg/dL Total Protein (6.3-8.2) g/dL Albumin (3.5-5.0) g/dL 10/16/16 10/16/16 10/16/16 Range/Units 02:08 03:54 04:15 WBC (3.8-10.6) k/uL RBC (4.30-5.90) m/uL Hgb (13.0-17.5) gm/dL Hct (39.0-53.0) % Neutrophils # (1.3-7.7) k/uL Lymphocytes # (1.0-4.8) k/uL PT (9.0-12.0) sec INR (<1.2) ABG pH 7.55 H (7.35-7.45) ABG pCO2 28 L (35-45) mmHg ABG pO2 77 L (83-108) mmHg ABG Total CO2 25 H (19-24) mmol/L Potassium (3.5-5.1) mmol/L Chloride (98-107) mmol/L BUN (9-20) mg/dL Glucose (74-99) mg/dL POC Glucose (mg/dL) 192 H 218 H (75-99) mg/dL Total Protein (6.3-8.2) g/dL Albumin (3.5-5.0) g/dL 10/16/16 10/16/16 10/16/16 Range/Units 04:22 04:22 04:22 WBC 14.6 H (3.8-10.6) k/uL RBC 2.57 L (4.30-5.90) m/uL Hgb 7.5 L (13.0-17.5) gm/dL Hct 22.3 L (39.0-53.0) % Neutrophils # 13.0 H (1.3-7.7) k/uL Lymphocytes # 0.7 L (1.0-4.8) k/uL PT 12.4 H (9.0-12.0) sec INR 1.3 H (<1.2) ABG pH (7.35-7.45) ABG pCO2 (35-45) mmHg ABG pO2 (83-108) mmHg ABG Total CO2 (19-24) mmol/L Potassium 3.4 L (3.5-5.1) mmol/L Chloride 109 H (98-107) mmol/L BUN 30 H (9-20) mg/dL Glucose 220 H (74-99) mg/dL POC Glucose (mg/dL) (75-99) mg/dL Total Protein 4.4 L (6.3-8.2) g/dL Albumin 2.3 L (3.5-5.0) g/dL 10/16/16 10/16/16 Range/Units 06:21 07:59 WBC (3.8-10.6) k/uL RBC (4.30-5.90) m/uL Hgb (13.0-17.5) gm/dL Hct (39.0-53.0) % Neutrophils # (1.3-7.7) k/uL Lymphocytes # (1.0-4.8) k/uL PT (9.0-12.0) sec INR (<1.2) ABG pH (7.35-7.45) ABG pCO2 (35-45) mmHg ABG pO2 (83-108) mmHg ABG Total CO2 (19-24) mmol/L Potassium (3.5-5.1) mmol/L Chloride (98-107) mmol/L BUN (9-20) mg/dL Glucose (74-99) mg/dL POC Glucose (mg/dL) 221 H 226 H (75-99) mg/dL Total Protein (6.3-8.2) g/dL Albumin (3.5-5.0) g/dL Microbiology - Last 24 Hours (Table) 10/15/16 04:02 Blood Culture - Preliminary Blood No Growth after 24 hours 10/15/16 04:10 Blood Culture - Preliminary Blood No Growth after 24 hours 10/13/16 20:20 Blood Culture - Preliminary Blood No Growth after 48 hours 10/12/16 19:25 Gram Stain - Final Sputum Sputum Culture - Final - Imaging and Cardiology Chest x-ray: report reviewed, image reviewed Assessment and Plan (1) Tobacco dependence in remission Status: Acute (2) Recovering alcoholic in remission Status: Acute (3) Drug addiction in remission Status: Acute (4) Bipolar 1 disorder Status: Acute (5) CHF NYHA class III (symptoms with mildly strenuous activities) Status: Acute (6) COPD (chronic obstructive pulmonary disease) Status: Acute (7) Coronary artery disease Status: Acute (8) Hypertension Status: Acute (9) Non-STEMI (non-ST elevated myocardial infarction) Status: Acute (10) Uncontrolled type 2 diabetes mellitus Status: Acute Plan: 1. Continue aspirin, statin, Plavix, heparin subcu, caleb. Will maximize beta caleb therapy as tolerated. 2. Continue oral Cardizem for radial artery spasm prevention. 3. Ventilator management per pulmonary services. Wean O2 as tolerated. Daily CPAP trials. 4. Antibiotic management per pulmonology services. Await cultures. 5. Appreciate further neurology recommendations. Will continue with aspirin, statin, Plavix, blood pressure control, PT/OT as tolerated for stroke treatment. MRI ordered by neurology post extubation. 6. Continue tube feeding for nutritional support. 7. Insulin management per primary care service. 8. GI/DVT prophylaxis. 9. Will monitor daily labs, x-rays. 10. Keep Rosario catheter for strict accurate I and O's. 11. More recommendations as patient progresses. Time with Patient: Greater than 30
[2016-10-16 09:39] LABS: Glucose,Whole Blood 217 mg/dL (75-99)
--- NOTE | 2016-10-16 11:26 | P.PN ---
Subjective On 10/14/2016 I'm seeing this patient for Dr. Ramírez. I reviewed the records and examined the patient. Based on my review, the patient has undergone coronary artery bypass surgery and is postop day #4. Postoperative the patient was extubated blood any major difficulties. He continued to have change in mental status and there was suspicion for a left-sided CVA. The patient has had serial CAT scans the most recent CAT scan of which was done this morning it showed some abnormalities consistent with ischemic changes on the right. Clinically is having some weakness and deficits on the left than on the neurologic exam the patient has positive Babinski on the left. Note that the patient was having difficulty in swallowing including his S2 secretions. Based on that he had to be reintubated. Currently is on assist-control mode of ventilation at the rate of 22, tidal volume of 400, FiO2 of 50% and a PEEP of 0. His blood gases from this morning showed a pH of 7.47 with a pCO2 of 37 and pO2 of 80. Peak airway pressures around 16. He has some few scattered rhonchi and crackles in the lung bases. On today's chest x-ray, there is cardiomegaly, ET tube is in good location, he has a left IJ triple-lumen catheter, he has a left-sided chest tube, he has pulmonary vessel congestion and small effusion specially on the right. He was given 20 mg of IV Lasix this morning. Is producing adequate amount of urine output. He is afebrile for now. His hemoglobin is at 7.5. He has normal renal function. A sedation holiday will be given time to assess and evaluate his mental status. He is on aspirin. His cardiac rhythm is sinus. On 10/15/2016 the patient is being seen in follow-up for Dr. Ramírez. The patient remains unresponsive. Sedation was discontinued this morning and I am still awaiting for this patient to show some neurologic recovery and neurologic examination will be done once the effect of this patient is completely gone. The same was done yesterday and the patient had to be placed back on sedation because of increased autonomic response including blood pressure heart rate and respiratory rate. Negative rate, it was noted that the patient is not moving his left side and stroke has likely occurred nontender the patient has signs of upper motor neuron and damage and positive Babinski. The patient remains on a mechanical ventilator. His assist-control mode of ventilation. He is a rate of 22, tidal volume 400 and FiO2 of 40% and 0 PEEP. He is not having major respiratory secretions. Chest x-ray today shows stable postsurgical changes. Examination of the right lung bases improved. He was producing some rest or secretions and a culture was done at a time of reintubation and the results are still pending. Meanwhile the patient started having some episodes of fever on and off for which was started on empiric antibiotics with IV Zosyn. Hemodynamically remains stable. He is receiving his enteral feeding without any major difficulties. He is tolerating his diet. His cardiac rhythm is sinus. No other significant issues otherwise for now. Neurologist on the case. CAT scan of the brain from yesterday was reviewed. On 10/16/2016 I'm covering this patient is still for Dr. Ramírez. The patient remains essentially the same condition. He is requiring a low-dose sedation Diprivan is running at 10 g. He is comfortable while on low-dose Diprivan. Once this continued to be restless and somewhat agitated and he gets an autonomic response while off the sedation. Left side is weak compared to the right. He does withdraw slightly with deep painful stimuli. He has a positive Babinski on the left. No facial asymmetry. Pupils are equal and reactive to light. He remains assist-control mode of ventilation at the rate of 22, tidal volume of 500, FiO2 of 50% and a PEEP of 0. His minute ventilation on a mechanical ventilated is around 14 L. He is pH is at 7.55 to pCO2 of 28 and pO2 of 77 while on the mechanical ventilator. The chest x-ray shows stable findings of cardiomegaly and some mild central vessel congestion and bibasilar infiltrate. Sputum Gram stain and cultures still pending. He is afebrile. He is covered with IV Zosyn. Is tolerating his tube feeds. Neurologist on the case. We'll was stable at 7.5. Renal function is also stable. Objective - Vital Signs Vital signs: Vital Signs Temp 100.1 F H 10/16/16 08:00 Pulse 70 10/16/16 11:04 Resp 23 10/16/16 10:00 BP 114/71 10/14/16 06:00 Pulse Ox 97 10/16/16 10:00 Intake & Output 09/02/17 09/03/17 09/03/17 18:59 06:59 18:59 Intake Total 8149.303 9028.456 475.014 Output Total 1210 865 255 Balance 98.702 646.456 220.014 Weight 94.8 kg 93.1 kg 93.1 kg Intake: IV 160 240 40 Lactated Ringers 1,000 ml 160 240 40 @ 20 mls/hr IV .Q24H [facility] Rx#:[id number] Intake, IV Titration 308.702 356.456 40.014 Amount ACETAMINOPHEN IV (For NPO 100 ) 1,000 mg In Empty Bag 1 bag @ 400 mls/hr IVPB Q6HR PRN Rx#:[id number] Insulin Regular 100 unit 108.702 106.141 40.014 In Sodium Chloride 0.9% 100 ml @ Per Protocol IV .Q0M [facility] TO [facility] Rx#:[id number] Piperacillin-Tazobactam 3 200 .375 gm In Dextrose/Water 1 50ml.bag @ 12.5 mls/hr IVPB Q8H [facility] Rx#: [id number] Propofol 1,000 mg In 100 100 50.315 ml @ Titrate IV .Q0M [facility] Rx#:[id number] Oral 60 Tube Feeding 660 825 275 Other 120 90 120 Output: Chest Tube Drainage 35 65 30 Chest Tube Left Lateral 35 65 30 Chest Urine 1175 800 225 Other: Voiding Method Indwelling Catheter Indwelling Catheter Indwelling Catheter # Voids 1 ABP, PAP, CO, CI - Last Documented Arterial Blood Pressure 109/51 Pulmonary Artery Pressure 27/13 Cardiac Output 9.2 Cardiac Index 4.5 - Exam GENERAL EXAM: On mechanical ventilation with propofol for sedation, the orogastric and orotracheal tube are both in place. He has a left IJ triple- lumen catheter. HEAD: Normocephalic. EYES: Normal reaction of pupils, equal size. NOSE: Clear with pink turbinates. THROAT: No erythema or exudates. NECK: No masses, no JVD. CHEST: No chest wall deformity. The anterior chest wall incision with dressing clean dry and intact. LUNGS: Lungs are noted to be coarse throughout with some fine expiratory wheezing noted. Bases diminished. CVS: S1 and S2 normal with no audible mumurs, regular rhythm. The patient has stable sternal wound. No evidence of any bleeding. The left-sided chest tube is in place. ABDOMEN: No hepatosplenomegaly, normal bowel sounds, no guarding or rigidity. EXTREMITIES: No edema noted, pedal pulses palpable. Left lower extremity site clean dry and intact SKIN: No rashes CENTRAL NERVOUS SYSTEM: On mechanical ventilation with propofol for sedation, withdraws from painful stimuli, during sedation holiday the patient is noted to have a grade 1out of 5 upper extremity neglect right side remains 5 out of 5. He has a positive Babinski on the left. No clonus. No facial asymmetry. Pupils are equal and reactive to light. - Labs CBC & Chem 7: 10/16/16 04:22 10/16/16 04:22 Labs: Abnormal Lab Results - Last 24 Hours (Table) 10/15/16 10/15/16 10/15/16 Range/Units 12:16 14:04 16:11 WBC (3.8-10.6) k/uL RBC (4.30-5.90) m/uL Hgb (13.0-17.5) gm/dL Hct (39.0-53.0) % Neutrophils # (1.3-7.7) k/uL Lymphocytes # (1.0-4.8) k/uL PT (9.0-12.0) sec INR (<1.2) ABG pH (7.35-7.45) ABG pCO2 (35-45) mmHg ABG pO2 (83-108) mmHg ABG Total CO2 (19-24) mmol/L Potassium (3.5-5.1) mmol/L Chloride (98-107) mmol/L BUN (9-20) mg/dL Glucose (74-99) mg/dL POC Glucose (mg/dL) 216 H 220 H 203 H (75-99) mg/dL Total Protein (6.3-8.2) g/dL Albumin (3.5-5.0) g/dL 10/15/16 10/15/16 10/15/16 Range/Units 18:00 20:15 20:59 WBC (3.8-10.6) k/uL RBC (4.30-5.90) m/uL Hgb (13.0-17.5) gm/dL Hct (39.0-53.0) % Neutrophils # (1.3-7.7) k/uL Lymphocytes # (1.0-4.8) k/uL PT (9.0-12.0) sec INR (<1.2) ABG pH (7.35-7.45) ABG pCO2 (35-45) mmHg ABG pO2 (83-108) mmHg ABG Total CO2 (19-24) mmol/L Potassium (3.5-5.1) mmol/L Chloride (98-107) mmol/L BUN (9-20) mg/dL Glucose (74-99) mg/dL POC Glucose (mg/dL) 213 H 214 H 206 H (75-99) mg/dL Total Protein (6.3-8.2) g/dL Albumin (3.5-5.0) g/dL 10/16/16 10/16/16 10/16/16 Range/Units 00:11 02:08 03:54 WBC (3.8-10.6) k/uL RBC (4.30-5.90) m/uL Hgb (13.0-17.5) gm/dL Hct (39.0-53.0) % Neutrophils # (1.3-7.7) k/uL Lymphocytes # (1.0-4.8) k/uL PT (9.0-12.0) sec INR (<1.2) ABG pH (7.35-7.45) ABG pCO2 (35-45) mmHg ABG pO2 (83-108) mmHg ABG Total CO2 (19-24) mmol/L Potassium (3.5-5.1) mmol/L Chloride (98-107) mmol/L BUN (9-20) mg/dL Glucose (74-99) mg/dL POC Glucose (mg/dL) 116 H 192 H 218 H (75-99) mg/dL Total Protein (6.3-8.2) g/dL Albumin (3.5-5.0) g/dL 10/16/16 10/16/16 10/16/16 Range/Units 04:15 04:22 04:22 WBC 14.6 H (3.8-10.6) k/uL RBC 2.57 L (4.30-5.90) m/uL Hgb 7.5 L (13.0-17.5) gm/dL Hct 22.3 L (39.0-53.0) % Neutrophils # 13.0 H (1.3-7.7) k/uL Lymphocytes # 0.7 L (1.0-4.8) k/uL PT 12.4 H (9.0-12.0) sec INR 1.3 H (<1.2) ABG pH 7.55 H (7.35-7.45) ABG pCO2 28 L (35-45) mmHg ABG pO2 77 L (83-108) mmHg ABG Total CO2 25 H (19-24) mmol/L Potassium (3.5-5.1) mmol/L Chloride (98-107) mmol/L BUN (9-20) mg/dL Glucose (74-99) mg/dL POC Glucose (mg/dL) (75-99) mg/dL Total Protein (6.3-8.2) g/dL Albumin (3.5-5.0) g/dL 10/16/16 10/16/16 10/16/16 Range/Units 04:22 06:21 07:59 WBC (3.8-10.6) k/uL RBC (4.30-5.90) m/uL Hgb (13.0-17.5) gm/dL Hct (39.0-53.0) % Neutrophils # (1.3-7.7) k/uL Lymphocytes # (1.0-4.8) k/uL PT (9.0-12.0) sec INR (<1.2) ABG pH (7.35-7.45) ABG pCO2 (35-45) mmHg ABG pO2 (83-108) mmHg ABG Total CO2 (19-24) mmol/L Potassium 3.4 L (3.5-5.1) mmol/L Chloride 109 H (98-107) mmol/L BUN 30 H (9-20) mg/dL Glucose 220 H (74-99) mg/dL POC Glucose (mg/dL) 221 H 226 H (75-99) mg/dL Total Protein 4.4 L (6.3-8.2) g/dL Albumin 2.3 L (3.5-5.0) g/dL 10/16/16 Range/Units 09:37 WBC (3.8-10.6) k/uL RBC (4.30-5.90) m/uL Hgb (13.0-17.5) gm/dL Hct (39.0-53.0) % Neutrophils # (1.3-7.7) k/uL Lymphocytes # (1.0-4.8) k/uL PT (9.0-12.0) sec INR (<1.2) ABG pH (7.35-7.45) ABG pCO2 (35-45) mmHg ABG pO2 (83-108) mmHg ABG Total CO2 (19-24) mmol/L Potassium (3.5-5.1) mmol/L Chloride (98-107) mmol/L BUN (9-20) mg/dL Glucose (74-99) mg/dL POC Glucose (mg/dL) 217 H (75-99) mg/dL Total Protein (6.3-8.2) g/dL Albumin (3.5-5.0) g/dL Microbiology - Last 24 Hours (Table) 10/15/16 04:02 Blood Culture - Preliminary Blood No Growth after 24 hours 10/15/16 04:10 Blood Culture - Preliminary Blood No Growth after 24 hours 10/13/16 20:20 Blood Culture - Preliminary Blood No Growth after 48 hours 10/12/16 19:25 Gram Stain - Final Sputum Sputum Culture - Final Assessment and Plan Plan: Assessment 1 coronary artery bypass surgery, patient had four-vessel bypass and the patient is postop day #6 2 acute CVA with left-sided weakness. The patient had diminished level of consciousness and difficulty in handling indicating his respiratory secretions and based on that he had to be reintubated. The patient is being given another sedation holiday and his underlying neurologic function will be readdressed. He does not have a clear sensorium. Obviously he is not a good candidate for extubation and weaning. The patient's mentation neurologic status has remained essentially unchanged over the past 3 days. He is only on a low-dose Diprivan for sedation. Diprivan is running at 10 mics. He is still receiving daily sedation holidays. Diprivan is being is less to suppress autonomic reactions is recovering quite off sedation which include hypertension and tachycardia and tachypnea. 3 acute respiratory failure, secondary to diminished level of consciousness and inability to clear rest or secretions. This was done prophylactically to secure an airway. The patient continues to be on a mechanical ventilator and the chest x-ray shows no acute abnormalities. The blood gases from today shows a component of respiratory alkalosis. The patient has a high minute ventilation requirements. 4 small postoperative bilateral pleural effusions 5 left-sided chest tube in place 6 diffuse coronary artery disease status post acute IA 7 diabetes mellitus type 2 8 hypertension 9 hyperlipidemia 10 anemia, multifactorial currently having a stable hemoglobin 11 COPD 12 recovered alcoholic and drug addict. 13 bipolar disorder 14 episodic fever and the patient is being cultured and the patient was started on IV Zosyn as an empiric antibiotic coverage. The patient is afebrile for now Plan Continue daily neurochecks. Continue vent support. Continue enteral feeding for incision support. Anticipated the patient will need a tracheostomy tube insertion at the later stage. No vent changes for today. I dropped a respiratory rate down to 18. The patient's serum tidal volume is quite high and he has high minute ventilation requirements. I think this partly is central and neurologic. We'll continue supportive care. We'll continue following up this patient along with aggressive the consultants. Condition is critical and this critical care evaluation that was done and 32 minutes. Time with Patient: Greater than 30
[2016-10-16 11:37] LABS: Glucose,Whole Blood 193 mg/dL (75-99)
--- NOTE | 2016-10-16 12:18 | PN ---
PROGRESS NOTE DATE OF SERVICE: 10/16/2016 I am covering for Dr. Magana. INTERVAL HISTORY: This 50-year-old gentleman admitted after CAD, CABG also had acute CVA with left-sided weakness. The patient is on mechanical ventilation. Patient also on insulin drip for control of blood sugars patient closely monitored in ICU. In the CT scan on 10/14/2016 showed no acute ischemic changes. Neurology evaluation in progress also. PAST MEDICAL HISTORY: Past medical history reviewed. REVIEW OF SYSTEMS: Could not be taken. MEDICATIONS: Current medications reviewed and include: 1. [place] 5 mg q.4h p.r.n. 2. DuoNeb q.i.d. and p.r.n. 3. Aspirin. 4. Lipitor. 5. Cepacol. 6. Peridex. 7. Plavix. 8. Cardizem. 9. Alprazolam. 10.Toradol. 11.Lactated ringers. 12.Milk of magnesia. 13.Magnesium. 14.Levophed. 15.Zofran. 16.Protonix. PHYSICAL EXAM: The patient is on mechanical ventilation. Sedated. Pulse 71, blood pressure is 123/56, respiratory rate 26, temperature normal. Mechanical ventilation settings are noted on 40% FiO2 97% saturation. HEENT: Conjunctivae normal. Oral mucosa moist. Neck: No jugular venous distention. No carotid bruit. No lymph nodes enlargement. CARDIOVASCULAR: S1, S2. No S3, no S4. Respiratory: Breath sounds diminished in the bases. A few scattered rhonchi and crackles. ABDOMEN: Soft, nontender. LEGS: No edema. No swelling. Central nervous system: The patient sedated. LABS: WBC 12.3, ABGs noted. Glucose 206 and 116. ASSESSMENT: 1. Status post coronary artery disease, coronary artery bypass grafting. 2. Acute cerebrovascular accident with left-sided weakness. 3. Acute hypoxic respiratory failure. 4. Bilateral pleural effusion. Left-sided chest tube in place. 5. Diabetes mellitus Type 2. 6. Hypertension. 7. Chronic obstructive pulmonary disease. 8. History of ETOH. 9. History of bipolar. RECOMMENDATIONS AND DISCUSSION: In this 50-year-old gentleman presents with multiple complex medical issues. We will monitor the patient closely. Continue the current management and symptomatic treatment of the patient. Zosyn was added to the current regimen. We will obtain sputum cultures. Continue to monitor. Continue the reset of the medications. Continue to monitor. Maintain the insulin drip at this time. Otherwise continue to monitor. Bronchodilators. Mechanical ventilation per Dr. Olmos. Guarded prognosis. Further recommendations to follow. MMODL / IJN: [id number] /
[2016-10-16 13:22] LABS: Glucose,Whole Blood 179 mg/dL (75-99)
[2016-10-16 14:09] LABS: Glucose,Whole Blood 190 mg/dL (75-99)
[2016-10-16 15:12] LABS: Glucose,Whole Blood 152 mg/dL (75-99)
--- NOTE | 2016-10-16 15:46 | P.PN ---
Progress Note - Text Patient remains intubated. He has had stroke with left-sided weakness and is unable to protect his airway and required ventilatory support. Continue current medications and ICU care. I did speak to his sister who was in the room Breath sounds are reduced bilaterally but equal Heart sounds S1 and S2 are soft Abdomen is soft No edema Blood pressure 133/53 mmHg respirations 20-22, pulse rate in the 70s Labs are reviewed. Potassium 3.4, creatinine 0.7 Impression Multivessel coronary artery disease, transferred from [facility] Status post coronary artery bypass grafting Perioperative CVA with left-sided weakness Inability to maintain respirations acute respiratory failure currently intubated Plan Continue cardiac medications by NG tube
[2016-10-16 16:20] LABS: Glucose,Whole Blood 178 mg/dL (75-99)
[2016-10-16] MEDS: LACTATED RINGERS 1,000 ML IV SCH (16:56)
[2016-10-16 16:59] LABS: Glucose,Whole Blood 153 mg/dL (75-99)
[2016-10-16 18:23] LABS: Glucose,Whole Blood 164 mg/dL (75-99)
[2016-10-16 20:15] LABS: Glucose,Whole Blood 177 mg/dL (75-99)
[2016-10-16] MEDS: SENNOSIDES-DOCUSATE SODIUM 1 EACH TAB PO SCH (21:03)
[2016-10-16 22:26] LABS: Glucose,Whole Blood 153 mg/dL (75-99)
--- NOTE | 2016-10-16 22:33 | PN ---
PROGRESS NOTE DATE OF SERVICE: 10/16/2016 I am covering for Dr. Magana. This is a progress note. INTERVAL HISTORY: This 50-year-old, number gentleman admitted with CAD CABG also had acute CVA with left- sided weakness. The patient is on mechanical ventilation. The patient is diabetes mellitus, the patient needed 12 units per hour. The CT scan of 2016 reviewed. PAST MEDICAL HISTORY: Past medical history reviewed. REVIEW OF SYMPTOMS: Could not be taken, the patient is mechanically ventilated and sedated. MEDICATIONS: Medications are reviewed and include: 1. [place] 5 mg q.4h p.r.n. 2. DuoNeb q.i.d. and p.r.n. 3. Aspirin 320 mg daily. 4. Lipitor 40 mg daily. 5. Dulcolax. 6. Peridex. 7. Cardizem 30 mg q.i.d. 9. Alprazolam 10 mg IV q4h. 10.Lopressor. 11.P.r.n. medications. 12.Zosyn 3.37 IV q8. 13.Senokot. PHYSICAL EXAMINATION: The patient is alert oriented times three. Pulse 73, blood pressure 133/52, respiratory 22, temp is normal. Pulse ox 97% on 40% FOI2. HEENT: Conjunctivae normal. Oral mucosa moist. Neck is no jugular venous distention. No carotid bruit. No lymph node enlargement. Cardiovascular system S1, S2 muffled. Respiratory: Breath sounds diminished at the bases. Bilateral scattered rhonchi and crackles. Abdomen is soft, nontender, no masses. Legs: No edema. No swelling. Central nervous system: The patient is mechanically ventilated and sedated. LABORATORY DATA: WBC 14.2, hemoglobin 7.5, ABGs noted. ASSESSMENT: 1. Status post coronary artery disease, coronary artery bypass grafting. 2. Acute cerebrovascular accident with left-sided weakness. Possibly right- sided hemispheric lesion. 3. Acute hypoxic respiratory failure. 4. Bilateral pleural effusion. The left chest tube is out. 5. Diabetes type 2 on insulin drip. 6. Hypertension. 7. Chronic obstructive pulmonary disease. 8. History of EtOH. 9. History of bipolar. RECOMMENDATIONS AND DISCUSSION: Recommend continue current management and continue with symptomatic treatment. Continue the bronchodilators. Continue the rest of the medications. The basic labs are noted. Hemoglobin 8. White count is still elevated. Close follow up with pulmonary. Guarded prognosis. Further recommendations to follow. MMODL / IJN: [id number] / [facility]
[2016-10-16] MEDS ORDERED: Potassium Replacement Protocol 1 EACH MISC MISCELLANE PRN (23:23)
[2016-10-17] MEDS: POTASSIUM CHLORIDE ORAL LIQUID 40 MEQ/30 ML CUP NG-TUBE SCH
[2016-10-17 00:04] LABS: Glucose,Whole Blood 129 mg/dL (75-99)
[2016-10-17 01:12] LABS: Glucose,Whole Blood 200 mg/dL (75-99)
[2016-10-17 01:49] LABS: Glucose,Whole Blood 214 mg/dL (75-99)
[2016-10-17 03:12] LABS: Glucose,Whole Blood 201 mg/dL (75-99)
[2016-10-17 03:27] LABS: Basophils % (A) 0 %; CHCM 33.5; Eosinophils # (A) 0.2 k/uL (0-0.7); Eosinophils % (A) 2 %; HCT 22.7 % (39.0-53.0); HDW 3.97; HGB 7.6 gm/dL (13.0-17.5); Hypochromasia Slight; Luc # (Auto) 0.21; Luc % (Auto) 2; Lymphocytes # (A) 0.9 k/uL (1.0-4.8); Lymphocytes % (A) 8 %; MCH 29.1 pg (25.0-35.0); MCHC 33.3 g/dL (31.0-37.0); MCV 87.3 fL (80.0-100.0); Monocytes # (A) 0.6 k/uL (0-1.0); Monocytes % (A) 5 %; Neutrophils # (A) 8.6 k/uL (1.3-7.7); Neutrophils % (A) 82 %; Poikilocytosis Slight; RDW 13.9 % (11.5-15.5); WBC 10.5 k/uL (3.8-10.6); WBC (Perox) 10.16
[2016-10-17 03:40] LABS: Ionized Calcium 5.2 mg/dL (4.5-5.3)
[2016-10-17 03:43] LABS: ALT 50 U/L (21-72); AST 44 U/L (17-59); Alkaline Phosphatase 74 U/L (38-126); Anion Gap 7 mmol/L; Blood Urea Nitrogen 39 mg/dL (9-20); Calcium 8.5 mg/dL (8.4-10.2); Carbon Dioxide 26 mmol/L (22-30); Chloride 112 mmol/L (98-107); Glucose 198 mg/dL (74-99); Magnesium 2.2 mg/dL (1.6-2.3); Non-African American GFR(MDRD) >60 (>60 ml/min/1.73 sqM); Phosphorous 3.2 mg/dL (2.5-4.5); Potassium 3.8 mmol/L (3.5-5.1); Sodium 145 mmol/L (137-145); Total Bilirubin 0.4 mg/dL (0.2-1.3); Total Protein 4.4 g/dL (6.3-8.2)
[2016-10-17] MEDS: PIPERACILLIN-TAZOBACTAM 3.375 GM in DEXTROSE/WATER 1 50ML.BAG IVPB SCH ×3 (03:54→20:28)
[2016-10-17 03:57] LABS: Glucose,Whole Blood 192 mg/dL (75-99)
[2016-10-17] MEDS ORDERED: Potassium Replacement Protocol 1 EACH MISC MISCELLANE PRN (03:57)
[2016-10-17] MEDS ORDERED: POTASSIUM CHLORIDE ORAL LIQUID 40 MEQ/30 ML CUP NG-TUBE SCH (04:00)
[2016-10-17] MEDS: PROPOFOL 1,000 MG/100 ML VIAL IV SCH ×3 (04:15→22:36)
[2016-10-17 04:55] LABS: ABG Base Excess 1.5 mmol/L; ABG HCO3 25 mmol/L (21-25); ABG PCO2 34 mmHg (35-45); ABG PH 7.48 (7.35-7.45); ABG PO2 80 mmHg (83-108); ABG TCO2 26 mmol/L (19-24)
[2016-10-17 05:08] LABS: Glucose,Whole Blood 173 mg/dL (75-99)
[2016-10-17 06:09] LABS: Glucose,Whole Blood 179 mg/dL (75-99)
[2016-10-17 07:02] LABS: Glucose,Whole Blood 176 mg/dL (75-99)
[2016-10-17] MEDS: INSULIN REGULAR 100 UNIT in SODIUM CHLORIDE 0.9% 100 ML IV SCH ×2 (07:05→18:49)
--- NOTE | 2016-10-17 07:17 | XR ---
EXAMINATION TYPE: XR chest 1V portable DATE OF EXAM: 10/17/2016 CLINICAL HISTORY: Difficulty breathing progress study. Post open cardiac surgery. TECHNIQUE: Single AP portable semiupright view of the chest is obtained. COMPARISON: Chest x-ray from one day earlier and older studies. FINDINGS: An endotracheal tube, orogastric tube, and left internal jugular central venous catheter a re all stable in appearance. There is interval removal of left basilar chest tube. Post CABG changes with mediastinal clips and sternal wires is redemonstrated. There is persistent cardiomegaly with central vascular congestion. There is persistent left basilar o pacity consistent with atelectasis and/or infiltrate. Small bilateral pleural effusions are felt pres ent. No pneumothorax is seen bilaterally. Osseous structures are intact. IMPRESSION: Interval removal of left-sided chest tube. There is chronic parenchymal change and cardio megaly with mild central vascular congestion and tiny bilateral pleural effusions all redemonstrated. There is persistent left basilar atelectasis and/or infiltrate redemonstrated. Improved aeration rig ht lung base is noted.
[2016-10-17] MEDS: IPRATROPIUM-ALBUTEROL 3 ML NEB INHALATION SCH ×4 (07:44→19:49)
[2016-10-17 08:14] LABS: Glucose,Whole Blood 169 mg/dL (75-99)
[2016-10-17] MEDS: CHLORHEXIDINE GLUCONATE 15 ML CUP MUCOUS MEM SCH ×2 (08:30→20:45)
[2016-10-17] MEDS: HEPARIN SODIUM,PORCINE 5,000 UNIT/ML 1 ML VIAL SQ SCH ×3 (08:30→23:00)
[2016-10-17] MEDS: PANTOPRAZOLE 40 MG/10 ML VIAL IVP SCH (08:30)
[2016-10-17] MEDS: DILTIAZEM ORAL 30 MG TAB PO SCH ×4 (08:31→21:13)
[2016-10-17] MEDS: ATORVASTATIN 40 MG TAB PO SCH (08:31)
[2016-10-17] MEDS: ASPIRIN 325 MG TAB PO SCH (08:31)
[2016-10-17] MEDS: CLOPIDOGREL 75 MG TAB PO SCH (08:31)
[2016-10-17] MEDS: METOPROLOL TARTRATE 25 MG TAB PO SCH ×2 (08:31→20:46)
--- NOTE | 2016-10-17 08:33 | P.PN ---
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 Family history of coronary artery disease. POD #7 urgent coronary artery bypass graft surgery 4 vessels with the left internal mammary artery to the left anterior descending artery, left radial artery to the ramus artery, reverse saphenous vein graft to the diagonal artery , reverse saphenous vein graft to posterior descending artery, endoscopic vein harvest left greater saphenous vein, endoscopic harvest of left radial artery, intraoperative transesophageal echocardiogram and epi-aortic scanning. Postoperative re-intubation for airway protection, prolonged mechanical ventilation. Postoperative ischemic stroke, a potential outcome of surgery. Leukocytosis, possible pneumonia, awaiting second sputum culture, preliminary second Gram stain demonstrates gram-positive cocci in clusters and gram- negative bacilli, currently on Zosyn, a potential outcome with reintubation. Patient's currently laying in the bed in no acute distress. Remains sedated on mechanical ventilation. Third CT scan demonstrated mild diffuse age-related cerebral atrophy, continued progression of moderate to severe nonspecific white matter changes since admission recent concern for acute ischemia. Patient without significant neurological changes in the last 24 hours. Epicardial pacemaker wires and left pleural chest tube discontinued yesterday without incident. Objective - Vital Signs Vital signs: Vital Signs Temp 99.2 F 10/17/16 05:00 Pulse 78 10/17/16 07:54 Resp 25 H 10/17/16 07:00 BP 132/62 10/17/16 07:00 Pulse Ox 98 10/17/16 07:00 Intake & Output 10/16/16 10/17/16 10/17/16 18:59 06:59 18:59 Intake Total 8152.328 3873.957 87.5 Output Total 650 765 60 Balance 895.275 540.957 27.5 Weight 93.1 kg 94.3 kg Intake: IV 140 295.0 32.5 Lactated Ringers 1,000 ml 140 220 20 @ 20 mls/hr IV .Q24H [facility] Rx#:[id number] Piperacillin-Tazobactam 3 75.0 12.5 .375 gm In Dextrose/Water 1 50ml.bag @ 12.5 mls/hr IVPB Q8H [facility] Rx#: [id number] Intake, IV Titration 285.275 215.957 Amount Insulin Regular 100 unit 135.353 124.625 In Sodium Chloride 0.9% 100 ml @ Per Protocol IV .Q0M [facility] Rx#:[id number] Piperacillin-Tazobactam 3 50 .375 gm In Dextrose/Water 1 50ml.bag @ 12.5 mls/hr IVPB Q8H [facility] Rx#: [id number] Propofol 1,000 mg In 100 99.922 91.332 ml @ Titrate IV .Q0M [facility] Rx#:[id number] Tube Feeding 880 735 55 Other 240 60 Output: Chest Tube Drainage 40 Chest Tube Left Lateral 40 Chest Urine 610 765 60 Other: Voiding Method Indwelling Catheter Indwelling Catheter # Voids 1 ABP, PAP, CO, CI - Last Documented Arterial Blood Pressure 122/60 Pulmonary Artery Pressure 27/13 Cardiac Output 9.2 Cardiac Index 4.5 - Constitutional General appearance: Present: no acute distress, obese - Respiratory Details: Lungs sounds diminished with coarse breath sounds in the bases. Respirations even, nonlabored on mechanical ventilation. Current ventilator settings assist control mode, FiO2 40%, tidal volume 500, respiratory rate 18, 0 PEEP. - Cardiovascular Details: S1, S2 present. Regular rate and rhythm, normal sinus rhythm on telemetry. Sternum stable. Right radial arterial line, left internal jugular triple-lumen central line present. Teds/SCDs present. Palpable pulses bilaterally. No edema present. - Gastrointestinal Gastrointestinal Comment(s): Abdomen soft, nontender, nondistended. Active bowel sounds 4 quadrants. Tolerating vital tube feedings at 55 mL per hour with minimal residual. Positive bowel movement last night. - Genitourinary Genitourinary Comment(s): Rosario present draining clear, yellow urine. Output 30-100 mL per hour overnight. - Integumentary Integumentary Comment(s): Anterior chest incision well approximated With dry intact dressing. Left lower extremity EVH site well approximated, mild bruising present. - Neurologic Neurologic Comment(s): Currently sedated on mechanical ventilation, withdraws to painful stimuli times all 4 quadrants. Positive left-sided Babinski still present. - Allied health notes Allied health notes reviewed: nursing - Labs CBC & Chem 7: 10/17/16 03:00 10/17/16 03:00 Labs: Abnormal Lab Results - Last 24 Hours (Table) 10/16/16 10/16/16 10/16/16 Range/Units 09:37 11:35 13:21 RBC (4.30-5.90) m/uL Hgb (13.0-17.5) gm/dL Hct (39.0-53.0) % Neutrophils # (1.3-7.7) k/uL Lymphocytes # (1.0-4.8) k/uL ABG pH (7.35-7.45) ABG pCO2 (35-45) mmHg ABG pO2 (83-108) mmHg ABG Total CO2 (19-24) mmol/L Potassium (3.5-5.1) mmol/L Chloride (98-107) mmol/L BUN (9-20) mg/dL Glucose (74-99) mg/dL POC Glucose (mg/dL) 217 H 193 H 179 H (75-99) mg/dL Total Protein (6.3-8.2) g/dL Albumin (3.5-5.0) g/dL 10/16/16 10/16/16 10/16/16 Range/Units 14:08 15:11 16:18 RBC (4.30-5.90) m/uL Hgb (13.0-17.5) gm/dL Hct (39.0-53.0) % Neutrophils # (1.3-7.7) k/uL Lymphocytes # (1.0-4.8) k/uL ABG pH (7.35-7.45) ABG pCO2 (35-45) mmHg ABG pO2 (83-108) mmHg ABG Total CO2 (19-24) mmol/L Potassium (3.5-5.1) mmol/L Chloride (98-107) mmol/L BUN (9-20) mg/dL Glucose (74-99) mg/dL POC Glucose (mg/dL) 190 H 152 H 178 H (75-99) mg/dL Total Protein (6.3-8.2) g/dL Albumin (3.5-5.0) g/dL 10/16/16 10/16/16 10/16/16 Range/Units 16:58 18:21 20:12 RBC (4.30-5.90) m/uL Hgb (13.0-17.5) gm/dL Hct (39.0-53.0) % Neutrophils # (1.3-7.7) k/uL Lymphocytes # (1.0-4.8) k/uL ABG pH (7.35-7.45) ABG pCO2 (35-45) mmHg ABG pO2 (83-108) mmHg ABG Total CO2 (19-24) mmol/L Potassium (3.5-5.1) mmol/L Chloride (98-107) mmol/L BUN (9-20) mg/dL Glucose (74-99) mg/dL POC Glucose (mg/dL) 153 H 164 H 177 H (75-99) mg/dL Total Protein (6.3-8.2) g/dL Albumin (3.5-5.0) g/dL 10/16/16 10/16/16 10/17/16 Range/Units 22:20 22:23 00:02 RBC (4.30-5.90) m/uL Hgb (13.0-17.5) gm/dL Hct (39.0-53.0) % Neutrophils # (1.3-7.7) k/uL Lymphocytes # (1.0-4.8) k/uL ABG pH (7.35-7.45) ABG pCO2 (35-45) mmHg ABG pO2 (83-108) mmHg ABG Total CO2 (19-24) mmol/L Potassium 3.2 L (3.5-5.1) mmol/L Chloride (98-107) mmol/L BUN (9-20) mg/dL Glucose (74-99) mg/dL POC Glucose (mg/dL) 153 H 129 H (75-99) mg/dL Total Protein (6.3-8.2) g/dL Albumin (3.5-5.0) g/dL 10/17/16 10/17/16 10/17/16 Range/Units 01:10 01:46 03:00 RBC 2.60 L (4.30-5.90) m/uL Hgb 7.6 L (13.0-17.5) gm/dL Hct 22.7 L (39.0-53.0) % Neutrophils # 8.6 H (1.3-7.7) k/uL Lymphocytes # 0.9 L (1.0-4.8) k/uL ABG pH (7.35-7.45) ABG pCO2 (35-45) mmHg ABG pO2 (83-108) mmHg ABG Total CO2 (19-24) mmol/L Potassium (3.5-5.1) mmol/L Chloride (98-107) mmol/L BUN (9-20) mg/dL Glucose (74-99) mg/dL POC Glucose (mg/dL) 200 H 214 H (75-99) mg/dL Total Protein (6.3-8.2) g/dL Albumin (3.5-5.0) g/dL 10/17/16 10/17/16 10/17/16 Range/Units 03:00 03:09 03:55 RBC (4.30-5.90) m/uL Hgb (13.0-17.5) gm/dL Hct (39.0-53.0) % Neutrophils # (1.3-7.7) k/uL Lymphocytes # (1.0-4.8) k/uL ABG pH (7.35-7.45) ABG pCO2 (35-45) mmHg ABG pO2 (83-108) mmHg ABG Total CO2 (19-24) mmol/L Potassium (3.5-5.1) mmol/L Chloride 112 H (98-107) mmol/L BUN 39 H (9-20) mg/dL Glucose 198 H (74-99) mg/dL POC Glucose (mg/dL) 201 H 192 H (75-99) mg/dL Total Protein 4.4 L (6.3-8.2) g/dL Albumin 2.3 L (3.5-5.0) g/dL 10/17/16 10/17/16 10/17/16 Range/Units 04:36 05:05 06:07 RBC (4.30-5.90) m/uL Hgb (13.0-17.5) gm/dL Hct (39.0-53.0) % Neutrophils # (1.3-7.7) k/uL Lymphocytes # (1.0-4.8) k/uL ABG pH 7.48 H (7.35-7.45) ABG pCO2 34 L (35-45) mmHg ABG pO2 80 L (83-108) mmHg ABG Total CO2 26 H (19-24) mmol/L Potassium (3.5-5.1) mmol/L Chloride (98-107) mmol/L BUN (9-20) mg/dL Glucose (74-99) mg/dL POC Glucose (mg/dL) 173 H 179 H (75-99) mg/dL Total Protein (6.3-8.2) g/dL Albumin (3.5-5.0) g/dL 10/17/16 10/17/16 Range/Units 07:00 08:13 RBC (4.30-5.90) m/uL Hgb (13.0-17.5) gm/dL Hct (39.0-53.0) % Neutrophils # (1.3-7.7) k/uL Lymphocytes # (1.0-4.8) k/uL ABG pH (7.35-7.45) ABG pCO2 (35-45) mmHg ABG pO2 (83-108) mmHg ABG Total CO2 (19-24) mmol/L Potassium (3.5-5.1) mmol/L Chloride (98-107) mmol/L BUN (9-20) mg/dL Glucose (74-99) mg/dL POC Glucose (mg/dL) 176 H 169 H (75-99) mg/dL Total Protein (6.3-8.2) g/dL Albumin (3.5-5.0) g/dL Microbiology - Last 24 Hours (Table) 10/15/16 04:02 Blood Culture - Preliminary Blood No Growth after 48 hours 10/15/16 04:10 Blood Culture - Preliminary Blood No Growth after 48 hours 10/13/16 20:20 Blood Culture - Preliminary Blood No Growth after 72 hours 10/15/16 14:35 Gram Stain - Preliminary Sputum Sputum Culture - Preliminary - Imaging and Cardiology Chest x-ray: report reviewed, image reviewed Assessment and Plan (1) Tobacco dependence in remission Status: Acute (2) Recovering alcoholic in remission Status: Acute (3) Drug addiction in remission Status: Acute (4) Bipolar 1 disorder Status: Acute (5) CHF NYHA class III (symptoms with mildly strenuous activities) Status: Acute (6) COPD (chronic obstructive pulmonary disease) Status: Acute (7) Coronary artery disease Status: Acute (8) Hypertension Status: Acute (9) Non-STEMI (non-ST elevated myocardial infarction) Status: Acute (10) Uncontrolled type 2 diabetes mellitus Status: Acute Plan: 1. Continue aspirin, statin, Plavix, heparin subcu, caleb. Will maximize beta caleb therapy as tolerated. 2. Continue oral Cardizem for radial artery spasm prevention. 3. Ventilator management per pulmonary services. Wean O2 as tolerated. Daily CPAP trials to exercise lungs, diaphragm. 4. Antibiotic management per pulmonology services. Await cultures. 5. MRI ordered by neurology once patient is extubated. 6. Continue tube feeding for nutritional support. 7. Insulin management per primary care service. 8. GI/DVT prophylaxis. 9. Will monitor daily labs, x-rays. 10. Keep Rosario catheter for strict accurate I and O's. 11. Will obtain PICC line to discontinue left IJ central line. 12. Potentially will need tracheostomy and PEG tube placement. 13. More recommendations as patient progresses. Time with Patient: Greater than 30 <Ramesh Klein - Last Filed: 10/17/16 10:33> Objective - Vital Signs Vital signs: Vital Signs Temp 98.8 F 10/17/16 08:00 Pulse 77 10/17/16 10:00 Resp 25 H 10/17/16 10:00 BP 132/62 10/17/16 07:00 Pulse Ox 96 10/17/16 10:00 Intake & Output 10/16/16 10/17/16 10/17/16 18:59 06:59 18:59 Intake Total 8547.853 9537.957 285.277 Output Total 650 765 210 Balance 895.275 540.957 75.277 Weight 93.1 kg 94.3 kg 94.3 kg Intake: IV 140 295.0 52.5 Lactated Ringers 1,000 ml 140 220 40 @ 20 mls/hr IV .Q24H [facility] Rx#:[id number] Piperacillin-Tazobactam 3 75.0 12.5 .375 gm In Dextrose/Water 1 50ml.bag @ 12.5 mls/hr IVPB Q8H [facility] Rx#: [id number] Intake, IV Titration 285.275 215.957 12.777 Amount Insulin Regular 100 unit 135.353 124.625 12.777 In Sodium Chloride 0.9% 100 ml @ Per Protocol IV .Q0M [facility] Rx#:[id number] Piperacillin-Tazobactam 3 50 .375 gm In Dextrose/Water 1 50ml.bag @ 12.5 mls/hr IVPB Q8H [facility] Rx#: [id number] Propofol 1,000 mg In 100 99.922 91.332 ml @ Titrate IV .Q0M [facility] Rx#:[id number] Tube Feeding 880 735 220 Other 240 60 Output: Chest Tube Drainage 40 Chest Tube Left Lateral 40 Chest Urine 610 765 210 Other: Voiding Method Indwelling Catheter Indwelling Catheter Indwelling Catheter # Voids 1 1 ABP, PAP, CO, CI - Last Documented Arterial Blood Pressure 165/73 Pulmonary Artery Pressure 27/13 Cardiac Output 9.2 Cardiac Index 4.5 - Labs CBC & Chem 7: 10/17/16 03:00 10/17/16 03:00 Labs: Abnormal Lab Results - Last 24 Hours (Table) 10/16/16 10/16/16 10/16/16 Range/Units 11:35 13:21 14:08 RBC (4.30-5.90) m/uL Hgb (13.0-17.5) gm/dL Hct (39.0-53.0) % Neutrophils # (1.3-7.7) k/uL Lymphocytes # (1.0-4.8) k/uL ABG pH (7.35-7.45) ABG pCO2 (35-45) mmHg ABG pO2 (83-108) mmHg ABG Total CO2 (19-24) mmol/L Potassium (3.5-5.1) mmol/L Chloride (98-107) mmol/L BUN (9-20) mg/dL Glucose (74-99) mg/dL POC Glucose (mg/dL) 193 H 179 H 190 H (75-99) mg/dL Total Protein (6.3-8.2) g/dL Albumin (3.5-5.0) g/dL 10/16/16 10/16/16 10/16/16 Range/Units 15:11 16:18 16:58 RBC (4.30-5.90) m/uL Hgb (13.0-17.5) gm/dL Hct (39.0-53.0) % Neutrophils # (1.3-7.7) k/uL Lymphocytes # (1.0-4.8) k/uL ABG pH (7.35-7.45) ABG pCO2 (35-45) mmHg ABG pO2 (83-108) mmHg ABG Total CO2 (19-24) mmol/L Potassium (3.5-5.1) mmol/L Chloride (98-107) mmol/L BUN (9-20) mg/dL Glucose (74-99) mg/dL POC Glucose (mg/dL) 152 H 178 H 153 H (75-99) mg/dL Total Protein (6.3-8.2) g/dL Albumin (3.5-5.0) g/dL 10/16/16 10/16/16 10/16/16 Range/Units 18:21 20:12 22:20 RBC (4.30-5.90) m/uL Hgb (13.0-17.5) gm/dL Hct (39.0-53.0) % Neutrophils # (1.3-7.7) k/uL Lymphocytes # (1.0-4.8) k/uL ABG pH (7.35-7.45) ABG pCO2 (35-45) mmHg ABG pO2 (83-108) mmHg ABG Total CO2 (19-24) mmol/L Potassium 3.2 L (3.5-5.1) mmol/L Chloride (98-107) mmol/L BUN (9-20) mg/dL Glucose (74-99) mg/dL POC Glucose (mg/dL) 164 H 177 H (75-99) mg/dL Total Protein (6.3-8.2) g/dL Albumin (3.5-5.0) g/dL 10/16/16 10/17/16 10/17/16 Range/Units 22:23 00:02 01:10 RBC (4.30-5.90) m/uL Hgb (13.0-17.5) gm/dL Hct (39.0-53.0) % Neutrophils # (1.3-7.7) k/uL Lymphocytes # (1.0-4.8) k/uL ABG pH (7.35-7.45) ABG pCO2 (35-45) mmHg ABG pO2 (83-108) mmHg ABG Total CO2 (19-24) mmol/L Potassium (3.5-5.1) mmol/L Chloride (98-107) mmol/L BUN (9-20) mg/dL Glucose (74-99) mg/dL POC Glucose (mg/dL) 153 H 129 H 200 H (75-99) mg/dL Total Protein (6.3-8.2) g/dL Albumin (3.5-5.0) g/dL 10/17/16 10/17/16 10/17/16 Range/Units 01:46 03:00 03:00 RBC 2.60 L (4.30-5.90) m/uL Hgb 7.6 L (13.0-17.5) gm/dL Hct 22.7 L (39.0-53.0) % Neutrophils # 8.6 H (1.3-7.7) k/uL Lymphocytes # 0.9 L (1.0-4.8) k/uL ABG pH (7.35-7.45) ABG pCO2 (35-45) mmHg ABG pO2 (83-108) mmHg ABG Total CO2 (19-24) mmol/L Potassium (3.5-5.1) mmol/L Chloride 112 H (98-107) mmol/L BUN 39 H (9-20) mg/dL Glucose 198 H (74-99) mg/dL POC Glucose (mg/dL) 214 H (75-99) mg/dL Total Protein 4.4 L (6.3-8.2) g/dL Albumin 2.3 L (3.5-5.0) g/dL 10/17/16 10/17/16 10/17/16 Range/Units 03:09 03:55 04:36 RBC (4.30-5.90) m/uL Hgb (13.0-17.5) gm/dL Hct (39.0-53.0) % Neutrophils # (1.3-7.7) k/uL Lymphocytes # (1.0-4.8) k/uL ABG pH 7.48 H (7.35-7.45) ABG pCO2 34 L (35-45) mmHg ABG pO2 80 L (83-108) mmHg ABG Total CO2 26 H (19-24) mmol/L Potassium (3.5-5.1) mmol/L Chloride (98-107) mmol/L BUN (9-20) mg/dL Glucose (74-99) mg/dL POC Glucose (mg/dL) 201 H 192 H (75-99) mg/dL Total Protein (6.3-8.2) g/dL Albumin (3.5-5.0) g/dL 10/17/16 10/17/16 10/17/16 Range/Units 05:05 06:07 07:00 RBC (4.30-5.90) m/uL Hgb (13.0-17.5) gm/dL Hct (39.0-53.0) % Neutrophils # (1.3-7.7) k/uL Lymphocytes # (1.0-4.8) k/uL ABG pH (7.35-7.45) ABG pCO2 (35-45) mmHg ABG pO2 (83-108) mmHg ABG Total CO2 (19-24) mmol/L Potassium (3.5-5.1) mmol/L Chloride (98-107) mmol/L BUN (9-20) mg/dL Glucose (74-99) mg/dL POC Glucose (mg/dL) 173 H 179 H 176 H (75-99) mg/dL Total Protein (6.3-8.2) g/dL Albumin (3.5-5.0) g/dL 10/17/16 10/17/16 Range/Units 08:13 10:10 RBC (4.30-5.90) m/uL Hgb (13.0-17.5) gm/dL Hct (39.0-53.0) % Neutrophils # (1.3-7.7) k/uL Lymphocytes # (1.0-4.8) k/uL ABG pH (7.35-7.45) ABG pCO2 (35-45) mmHg ABG pO2 (83-108) mmHg ABG Total CO2 (19-24) mmol/L Potassium (3.5-5.1) mmol/L Chloride (98-107) mmol/L BUN (9-20) mg/dL Glucose (74-99) mg/dL POC Glucose (mg/dL) 169 H 160 H (75-99) mg/dL Total Protein (6.3-8.2) g/dL Albumin (3.5-5.0) g/dL Microbiology - Last 24 Hours (Table) 10/15/16 04:02 Blood Culture - Preliminary Blood No Growth after 48 hours 10/15/16 04:10 Blood Culture - Preliminary Blood No Growth after 48 hours 10/13/16 20:20 Blood Culture - Preliminary Blood No Growth after 72 hours 10/15/16 14:35 Gram Stain - Preliminary Sputum Sputum Culture - Preliminary Assessment and Plan Plan: The patient was seen and examined. I agree with the above assessment and plan. He appears stable from a hemodynamic standpoint. He is scheduled to undergo repeat computed tomography scan of the brain along with EEG later today. We will plan on performing a tracheostomy with PEG tube tomorrow. We will discontinue his antibiotics. I did discuss his condition with his sister and mother at the bedside today. All their questions were answered.
[2016-10-17] MEDS ORDERED: RX INFO: IV CONTRAST WAS GIVEN 1 EACH MISC MISCELLANE PRN ×2 (08:49→16:03)
--- NOTE | 2016-10-17 09:51 | P.PN ---
Subjective On 10/14/2016 I'm seeing this patient for Dr. Ramírez. I reviewed the records and examined the patient. Based on my review, the patient has undergone coronary artery bypass surgery and is postop day #4. Postoperative the patient was extubated blood any major difficulties. He continued to have change in mental status and there was suspicion for a left-sided CVA. The patient has had serial CAT scans the most recent CAT scan of which was done this morning it showed some abnormalities consistent with ischemic changes on the right. Clinically is having some weakness and deficits on the left than on the neurologic exam the patient has positive Babinski on the left. Note that the patient was having difficulty in swallowing including his S2 secretions. Based on that he had to be reintubated. Currently is on assist-control mode of ventilation at the rate of 22, tidal volume of 400, FiO2 of 50% and a PEEP of 0. His blood gases from this morning showed a pH of 7.47 with a pCO2 of 37 and pO2 of 80. Peak airway pressures around 16. He has some few scattered rhonchi and crackles in the lung bases. On today's chest x-ray, there is cardiomegaly, ET tube is in good location, he has a left IJ triple-lumen catheter, he has a left-sided chest tube, he has pulmonary vessel congestion and small effusion specially on the right. He was given 20 mg of IV Lasix this morning. Is producing adequate amount of urine output. He is afebrile for now. His hemoglobin is at 7.5. He has normal renal function. A sedation holiday will be given time to assess and evaluate his mental status. He is on aspirin. His cardiac rhythm is sinus. On 10/15/2016 the patient is being seen in follow-up for Dr. Ramírez. The patient remains unresponsive. Sedation was discontinued this morning and I am still awaiting for this patient to show some neurologic recovery and neurologic examination will be done once the effect of this patient is completely gone. The same was done yesterday and the patient had to be placed back on sedation because of increased autonomic response including blood pressure heart rate and respiratory rate. Negative rate, it was noted that the patient is not moving his left side and stroke has likely occurred nontender the patient has signs of upper motor neuron and damage and positive Babinski. The patient remains on a mechanical ventilator. His assist-control mode of ventilation. He is a rate of 22, tidal volume 400 and FiO2 of 40% and 0 PEEP. He is not having major respiratory secretions. Chest x-ray today shows stable postsurgical changes. Examination of the right lung bases improved. He was producing some rest or secretions and a culture was done at a time of reintubation and the results are still pending. Meanwhile the patient started having some episodes of fever on and off for which was started on empiric antibiotics with IV Zosyn. Hemodynamically remains stable. He is receiving his enteral feeding without any major difficulties. He is tolerating his diet. His cardiac rhythm is sinus. No other significant issues otherwise for now. Neurologist on the case. CAT scan of the brain from yesterday was reviewed. On 10/16/2016 I'm covering this patient is still for Dr. Ramírez. The patient remains essentially the same condition. He is requiring a low-dose sedation Diprivan is running at 10 g. He is comfortable while on low-dose Diprivan. Once this continued to be restless and somewhat agitated and he gets an autonomic response while off the sedation. Left side is weak compared to the right. He does withdraw slightly with deep painful stimuli. He has a positive Babinski on the left. No facial asymmetry. Pupils are equal and reactive to light. He remains assist-control mode of ventilation at the rate of 22, tidal volume of 500, FiO2 of 50% and a PEEP of 0. His minute ventilation on a mechanical ventilated is around 14 L. He is pH is at 7.55 to pCO2 of 28 and pO2 of 77 while on the mechanical ventilator. The chest x-ray shows stable findings of cardiomegaly and some mild central vessel congestion and bibasilar infiltrate. Sputum Gram stain and cultures still pending. He is afebrile. He is covered with IV Zosyn. Is tolerating his tube feeds. Neurologist on the case. Hb was stable at 7.5. Renal function is also stable. On 10/17/2016 I'm covering this patient is still for Dr. Ramírez. The patient is being given a sedation holiday. His mental status has not recovered. His left- sided weakness has not recovered. He still has a Babinski on the left. He is moving in the right side. Off sedation is calm and comfortable. We'll try to get him off the Diprivan for the longest time possible. He was receiving 15 mics of the prevent at baseline. He remains on the same vent setting of an assist-control mode with tidal volume of 500 FiO2 of 40% and 0 PEEP. His chest exit shows post surgical stable findings. The chest tubes are removed. The ABGs from today showed a pH of 7.48 with a pCO2 of 34 and pO2 of 80. He is afebrile. He is hemodynamically stable. He is tolerating his tube feeds. He has no other specific complaints for now. I discussed the case with the thoracic surgeon and the patient will ultimately need a PEG and trach hopefully sometime this week. Neurologist on the case. They are desperately the pursuing CAT scan of the head and a CT angios of the brain will be also done. EEG will be repeated tomorrow. Objective - Vital Signs Vital signs: Vital Signs Temp 98.8 F 10/17/16 08:00 Pulse 76 10/17/16 09:00 Resp 24 10/17/16 09:00 BP 132/62 10/17/16 07:00 Pulse Ox 93 L 10/17/16 09:00 Intake & Output 10/16/16 10/17/16 10/17/16 18:59 06:59 18:59 Intake Total 0250.745 3486.957 285.277 Output Total 650 765 210 Balance 895.275 540.957 75.277 Weight 93.1 kg 94.3 kg 94.3 kg Intake: IV 140 295.0 52.5 Lactated Ringers 1,000 ml 140 220 40 @ 20 mls/hr IV .Q24H [facility] Rx#:[id number] Piperacillin-Tazobactam 3 75.0 12.5 .375 gm In Dextrose/Water 1 50ml.bag @ 12.5 mls/hr IVPB Q8H [facility] Rx#: [id number] Intake, IV Titration 285.275 215.957 12.777 Amount Insulin Regular 100 unit 135.353 124.625 12.777 In Sodium Chloride 0.9% 100 ml @ Per Protocol IV .Q0M [facility] Rx#:[id number] Piperacillin-Tazobactam 3 50 .375 gm In Dextrose/Water 1 50ml.bag @ 12.5 mls/hr IVPB Q8H [facility] Rx#: [id number] Propofol 1,000 mg In 100 99.922 91.332 ml @ Titrate IV .Q0M [facility] Rx#:[id number] Tube Feeding 880 735 220 Other 240 60 Output: Chest Tube Drainage 40 Chest Tube Left Lateral 40 Chest Urine 610 765 210 Other: Voiding Method Indwelling Catheter Indwelling Catheter Indwelling Catheter # Voids 1 1 ABP, PAP, CO, CI - Last Documented Arterial Blood Pressure 155/70 Pulmonary Artery Pressure 27/13 Cardiac Output 9.2 Cardiac Index 4.5 - Exam GENERAL EXAM: On mechanical ventilation with propofol for sedation, the orogastric and orotracheal tube are both in place. He has a left IJ triple- lumen catheter. HEAD: Normocephalic. EYES: Normal reaction of pupils, equal size. NOSE: Clear with pink turbinates. THROAT: No erythema or exudates. NECK: No masses, no JVD. CHEST: No chest wall deformity. The anterior chest wall incision with dressing clean dry and intact. LUNGS: Lungs are noted to be coarse throughout with some fine expiratory wheezing noted. Bases diminished. CVS: S1 and S2 normal with no audible mumurs, regular rhythm. The patient has stable sternal wound. No evidence of any bleeding. The left-sided chest tube is in place. ABDOMEN: No hepatosplenomegaly, normal bowel sounds, no guarding or rigidity. EXTREMITIES: No edema noted, pedal pulses palpable. Left lower extremity site clean dry and intact SKIN: No rashes CENTRAL NERVOUS SYSTEM: On mechanical ventilation with propofol for sedation, withdraws from painful stimuli, during sedation holiday the patient is noted to have a grade 1out of 5 upper extremity neglect right side remains 5 out of 5. He has a positive Babinski on the left. No clonus. No facial asymmetry. Pupils are equal and reactive to light. - Labs CBC & Chem 7: 10/17/16 03:00 10/17/16 03:00 Labs: Abnormal Lab Results - Last 24 Hours (Table) 10/16/16 10/16/16 10/16/16 Range/Units 11:35 13:21 14:08 RBC (4.30-5.90) m/uL Hgb (13.0-17.5) gm/dL Hct (39.0-53.0) % Neutrophils # (1.3-7.7) k/uL Lymphocytes # (1.0-4.8) k/uL ABG pH (7.35-7.45) ABG pCO2 (35-45) mmHg ABG pO2 (83-108) mmHg ABG Total CO2 (19-24) mmol/L Potassium (3.5-5.1) mmol/L Chloride (98-107) mmol/L BUN (9-20) mg/dL Glucose (74-99) mg/dL POC Glucose (mg/dL) 193 H 179 H 190 H (75-99) mg/dL Total Protein (6.3-8.2) g/dL Albumin (3.5-5.0) g/dL 10/16/16 10/16/16 10/16/16 Range/Units 15:11 16:18 16:58 RBC (4.30-5.90) m/uL Hgb (13.0-17.5) gm/dL Hct (39.0-53.0) % Neutrophils # (1.3-7.7) k/uL Lymphocytes # (1.0-4.8) k/uL ABG pH (7.35-7.45) ABG pCO2 (35-45) mmHg ABG pO2 (83-108) mmHg ABG Total CO2 (19-24) mmol/L Potassium (3.5-5.1) mmol/L Chloride (98-107) mmol/L BUN (9-20) mg/dL Glucose (74-99) mg/dL POC Glucose (mg/dL) 152 H 178 H 153 H (75-99) mg/dL Total Protein (6.3-8.2) g/dL Albumin (3.5-5.0) g/dL 10/16/16 10/16/16 10/16/16 Range/Units 18:21 20:12 22:20 RBC (4.30-5.90) m/uL Hgb (13.0-17.5) gm/dL Hct (39.0-53.0) % Neutrophils # (1.3-7.7) k/uL Lymphocytes # (1.0-4.8) k/uL ABG pH (7.35-7.45) ABG pCO2 (35-45) mmHg ABG pO2 (83-108) mmHg ABG Total CO2 (19-24) mmol/L Potassium 3.2 L (3.5-5.1) mmol/L Chloride (98-107) mmol/L BUN (9-20) mg/dL Glucose (74-99) mg/dL POC Glucose (mg/dL) 164 H 177 H (75-99) mg/dL Total Protein (6.3-8.2) g/dL Albumin (3.5-5.0) g/dL 10/16/16 10/17/16 10/17/16 Range/Units 22:23 00:02 01:10 RBC (4.30-5.90) m/uL Hgb (13.0-17.5) gm/dL Hct (39.0-53.0) % Neutrophils # (1.3-7.7) k/uL Lymphocytes # (1.0-4.8) k/uL ABG pH (7.35-7.45) ABG pCO2 (35-45) mmHg ABG pO2 (83-108) mmHg ABG Total CO2 (19-24) mmol/L Potassium (3.5-5.1) mmol/L Chloride (98-107) mmol/L BUN (9-20) mg/dL Glucose (74-99) mg/dL POC Glucose (mg/dL) 153 H 129 H 200 H (75-99) mg/dL Total Protein (6.3-8.2) g/dL Albumin (3.5-5.0) g/dL 10/17/16 10/17/16 10/17/16 Range/Units 01:46 03:00 03:00 RBC 2.60 L (4.30-5.90) m/uL Hgb 7.6 L (13.0-17.5) gm/dL Hct 22.7 L (39.0-53.0) % Neutrophils # 8.6 H (1.3-7.7) k/uL Lymphocytes # 0.9 L (1.0-4.8) k/uL ABG pH (7.35-7.45) ABG pCO2 (35-45) mmHg ABG pO2 (83-108) mmHg ABG Total CO2 (19-24) mmol/L Potassium (3.5-5.1) mmol/L Chloride 112 H (98-107) mmol/L BUN 39 H (9-20) mg/dL Glucose 198 H (74-99) mg/dL POC Glucose (mg/dL) 214 H (75-99) mg/dL Total Protein 4.4 L (6.3-8.2) g/dL Albumin 2.3 L (3.5-5.0) g/dL 10/17/16 10/17/16 10/17/16 Range/Units 03:09 03:55 04:36 RBC (4.30-5.90) m/uL Hgb (13.0-17.5) gm/dL Hct (39.0-53.0) % Neutrophils # (1.3-7.7) k/uL Lymphocytes # (1.0-4.8) k/uL ABG pH 7.48 H (7.35-7.45) ABG pCO2 34 L (35-45) mmHg ABG pO2 80 L (83-108) mmHg ABG Total CO2 26 H (19-24) mmol/L Potassium (3.5-5.1) mmol/L Chloride (98-107) mmol/L BUN (9-20) mg/dL Glucose (74-99) mg/dL POC Glucose (mg/dL) 201 H 192 H (75-99) mg/dL Total Protein (6.3-8.2) g/dL Albumin (3.5-5.0) g/dL 10/17/16 10/17/16 10/17/16 Range/Units 05:05 06:07 07:00 RBC (4.30-5.90) m/uL Hgb (13.0-17.5) gm/dL Hct (39.0-53.0) % Neutrophils # (1.3-7.7) k/uL Lymphocytes # (1.0-4.8) k/uL ABG pH (7.35-7.45) ABG pCO2 (35-45) mmHg ABG pO2 (83-108) mmHg ABG Total CO2 (19-24) mmol/L Potassium (3.5-5.1) mmol/L Chloride (98-107) mmol/L BUN (9-20) mg/dL Glucose (74-99) mg/dL POC Glucose (mg/dL) 173 H 179 H 176 H (75-99) mg/dL Total Protein (6.3-8.2) g/dL Albumin (3.5-5.0) g/dL 10/17/16 Range/Units 08:13 RBC (4.30-5.90) m/uL Hgb (13.0-17.5) gm/dL Hct (39.0-53.0) % Neutrophils # (1.3-7.7) k/uL Lymphocytes # (1.0-4.8) k/uL ABG pH (7.35-7.45) ABG pCO2 (35-45) mmHg ABG pO2 (83-108) mmHg ABG Total CO2 (19-24) mmol/L Potassium (3.5-5.1) mmol/L Chloride (98-107) mmol/L BUN (9-20) mg/dL Glucose (74-99) mg/dL POC Glucose (mg/dL) 169 H (75-99) mg/dL Total Protein (6.3-8.2) g/dL Albumin (3.5-5.0) g/dL Microbiology - Last 24 Hours (Table) 10/15/16 04:02 Blood Culture - Preliminary Blood No Growth after 48 hours 10/15/16 04:10 Blood Culture - Preliminary Blood No Growth after 48 hours 10/13/16 20:20 Blood Culture - Preliminary Blood No Growth after 72 hours 10/15/16 14:35 Gram Stain - Preliminary Sputum Sputum Culture - Preliminary Assessment and Plan Plan: Assessment 1 coronary artery bypass surgery, patient had four-vessel bypass and the patient is postop day #7 2 acute CVA with left-sided weakness. Remains unresponsive. Remains to be weak on the left side with positive Babinski. The patient will be taken for another CAT scan of the chest and a CT angios the head will be also done. He is currently off sedation. 3 acute respiratory failure, secondary to diminished level of consciousness and inability to clear rest or secretions. This was done prophylactically to secure an airway. The patient continues to be on a mechanical ventilator and the chest x-ray shows no acute abnormalities. The blood gases from today shows a component of respiratory alkalosis. Chest x-ray shows stable postsurgical changes and the left-sided chest tube has been removed. 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 13 bipolar disorder Plan Continue daily neurochecks. Continue vent support. Continue enteral feeding for incision support. Anticipated the patient will need a tracheostomy tube and a PEG tube insertion. Continue the supportive care. Continue enteral feeding for nutritional support. Chest tubes are removed. Stop the IV Zosyn. Family was updated on his condition. We'll continue to follow I will transfer the care to Dr. Ramírez in a.m.
[2016-10-17 10:12] LABS: Glucose,Whole Blood 160 mg/dL (75-99)
[2016-10-17 11:45] LABS: Glucose,Whole Blood 193 mg/dL (75-99)
--- NOTE | 2016-10-17 11:50 | CT ---
EXAMINATION TYPE: CT brain wo con DATE OF EXAM: 10/17/2016 COMPARISON: Most recent CT from 3 days earlier HISTORY: CVA per order up. Left-sided weakness on admission [address] DLP: 921.3 mGycm. Automated Exposure Control for Dose Reduction was Utilized. TECHNIQUE: CT scan of the head is performed without contrast. FINDINGS: There is no acute intracranial hemorrhage or midline shift identified. Ventricular and blunt lcal prominence consistent with age-related cerebral atrophy is redemonstrated. There is more promine nt low-attenuation in the deep and periventricular white matter, right greater than left redemonstrat ed, nonspecific finding. The globes are intact and the visualized sinuses are clear. Patchy opacifica tion mastoid air cells bilaterally is redemonstrated IMPRESSION: No acute intracranial hemorrhage or midline shift is seen. No significant change from mo st recent CT as there is mild diffuse age-related cerebral atrophy and moderate to severe nonspecific white matter changes in which evolving acute/subacute ischemia cannot be excluded.
--- NOTE | 2016-10-17 13:03 | CT ---
EXAMINATION TYPE: CT angio head neck DATE OF EXAM: 10/17/2016 HISTORY: follow up COMPARISON: Carotid ultrasound October 13, 2016. Chest x-ray from earlier today. CT DLP: 411.2 mGycm. Automated Exposure Control for Dose Reduction was Utilized. TECHNIQUE: CTA scan of the head and neck are performed with IV Contrast, patient injected with 65 mL of Omnipaque 350, axial images are obtained, coronal and sagittal reformatted images are reviewed. T hree-D reconstructed images are created on an independent workstation and reviewed. FINDINGS: Carotid/Vascular Structures/COW: There is three-vessel origin from the aortic arch without significan t plaque. The right common carotid artery shows normal origin from the right brachiocephalic artery. There is mild calcified plaque in the proximal internal carotid artery otherwise no significant plaqu e or stenosis is seen in common or internal carotid arteries bilaterally. There is patent right exter nal carotid artery without significant plaque or stenosis. There is no significant plaque or stenosis in the left common or internal carotid arteries including at level of carotid bulb. There is patent left external carotid artery without significant plaque or stenosis. There is codominant vertebral basilar system. Vertebral arteries are patent to basilar junction. Ther e is small caliber vertebral basilar system with basilar artery measuring under 2.0 centimeters in si ze. There is patent left posterior communicating artery. There is hypoplastic right posterior communi cating artery. No significant focal stenosis is present. Images of the anterior circulation show braswell nt anterior communicating artery without aneurysmal change or significant stenosis. Other: There is satisfactory appearance of endotracheal tube terminating above demi. There is parti al visualization of orogastric tube. There is partial visualization post CABG changes with mediastinal clips and sternal wires. There is small left-sided pneumothorax present anteriorly not well seen on recent x-ray. There is partial visualization of small right pleural effusion or fluid collection and scattered prom inent suspicious thoracic lymph nodes most prominent right paratracheal region. For reference there i s 2.0 x 1.6 cm lymph node on axial image 11 at level of aortic arch. There is suspected right hilar a denopathy. There is partial visualization of left-sided pleural effusion or fluid collection near hil ar level. Nonspecific white matter changes throughout brain parenchyma are redemonstrated. IMPRESSION: 1. No significant stenosis or aneurysmal change in common or internal carotid arteries bilaterally. 2. No significant focal stenosis or aneurysm at level of [place]. Underlying vertebral basil ar insufficiency cannot be excluded, clinical correlation advised. 3. Small left anterior pneumothorax is noted not as well seen on x-ray earlier today. Patient had rec ent left-sided chest tube removal. 4. Suspicious thoracic adenopathy particularly right paratracheal region, follow-up contrast-enhanced chest CT is recommended to further evaluate. A Yellow message has been communicated to Trae Magana MD via the [employer] Critical Result system on 10/17/2016 11:59 AM, Message ID [id number].
--- NOTE | 2016-10-17 13:43 | P.PN ---
Progress Note - Text Patient remains intubated. He has suffered a perioperative stroke after coronary artery bypass grafting He is on aspirin and statins and Plavix remains on diltiazem and beta blockers Continue cardiac medications Hopefully recovers this coming week
[2016-10-17 13:46] LABS: Glucose,Whole Blood 174 mg/dL (75-99)
[2016-10-17] MEDS: hydrALAZINE HCL 20 MG/ML 1 ML VIAL IVP PRN (14:04)
[2016-10-17] MEDS: POTASSIUM CHLORIDE 10 MEQ in WATER FOR INJECTION 1 100ML.BAG IVPB SCH ×2 (15:22→17:40)
[2016-10-17 15:49] LABS: Glucose,Whole Blood 166 mg/dL (75-99)
--- NOTE | 2016-10-17 16:52 | P.PN ---
Subjective Principal diagnosis: left-sided weakness, rule out CVA October 17, 2016: Patient was in the ICU on ventilator, sedation holiday performed. Neurological assesment was performed. Left Babinski noted on exam, neurological function unchanged since last sedation holiday. Patient unable to respond to verbal commands. Patient did not respond to painful stimuli as well. Patient did not open his eyes or otherwise give requested responses. No improvement. October 15, 2016: Patient's physical status has decreased since last rounding. Previous rounding noted some response and grasp with right hand that is no longer present on rounding today. Patient has begun having a fever that was noted by nursing at 103 F. Patient is currently on IV antibiotics. Patient is resting and in no acute distress. October 14, 2016: Patient's physical status remains unchanged. Patient was found supine in bed on a ventilator in the. Patient was in no acute distress. Family was at the bedside. Patient did have a CT of the brain today. It noted no acute intracranial hemorrhage or midline shift. Mild diffuse age-related cerebral atrophy seen. Continued progression of moderate to severe nonspecific white matter changes since admission raising concern for acute ischemia. Supervising physician reviewed the report and we will continue to manage as ischemic stroke at this point. Lipid panel noted triglycerides 163, cholesterol 61, LDL at 9 and HDL at 19. serum homocysteine level was normal at 4.4. Carotid Dopplers noted no evidence of hemodynamically significant stenosis on the right, left is not visualized to the line. EEG was noted as previously abnormal. Noted mild encephalopathy. Patient is currently on aspirin 325 mg, Lipitor 40 mg. continue neuro checks every shift. October 13, 2016: Patient is a 50-year-old male being followed by neurology who is status post bypass graft 4. Patient had left-sided weakness post procedure. Patient reportedly maintained difficulty moving the left upper extremity and neurology was consulted yesterday. EEG was ordered and obtained. Patient is currently on aspirin, Plavix, atorvastatin, diltiazem, beta blockers. Patient is currently in the ICU on ventilator and is sedated, resting in no acute distress. Nursing staff reports that patient had difficulty moving his left upper extremity status post surgery. CT of the brain was conducted October 11, October 12 and will be repeated again tomorrow. Supervising physician examined the patient yesterday. Objective - Vital Signs Vital signs: Vital Signs Temp 100.4 F H 10/17/16 13:00 Pulse 90 10/17/16 15:49 Resp 27 H 10/17/16 15:00 BP 132/62 10/17/16 07:00 Pulse Ox 91 L 10/17/16 15:00 Intake & Output 10/16/16 10/17/16 10/17/16 18:59 06:59 18:59 Intake Total 6033.364 5824.957 822.966 Output Total 650 765 960 Balance 895.275 540.957 -137.034 Weight 93.1 kg 94.3 kg 94.3 kg Intake: IV 140 295.0 222.5 Lactated Ringers 1,000 ml 140 220 160 @ 20 mls/hr IV .Q24H [facility] Rx#:[id number] Piperacillin-Tazobactam 3 75.0 62.5 .375 gm In Dextrose/Water 1 50ml.bag @ 12.5 mls/hr IVPB Q8H [facility] Rx#: [id number] Intake, IV Titration 285.275 215.957 105.466 Amount Insulin Regular 100 unit 135.353 124.625 51.847 In Sodium Chloride 0.9% 100 ml @ Per Protocol IV .Q0M [facility] Rx#:[id number] Piperacillin-Tazobactam 3 50 .375 gm In Dextrose/Water 1 50ml.bag @ 12.5 mls/hr IVPB Q8H [facility] Rx#: [id number] Propofol 1,000 mg In 100 99.922 91.332 53.619 ml @ Titrate IV .Q0M [facility] Rx#:[id number] Tube Feeding 880 735 495 Other 240 60 Output: Chest Tube Drainage 40 Chest Tube Left Lateral 40 Chest Urine 610 765 960 Other: Voiding Method Indwelling Catheter Indwelling Catheter Indwelling Catheter # Voids 1 1 ABP, PAP, CO, CI - Last Documented Arterial Blood Pressure 128/54 Pulmonary Artery Pressure 27/13 Cardiac Output 9.2 Cardiac Index 4.5 - Exam Physical exam was limited. Patient is sedated on ventilator in the ICU. Constitutional: AOx1, on ventilator HEENT: NC/AT, no facial asymmetry is seen. Throat: Supple, no masses Respiratory: ventilator in use Cardiac: Regular rate and Rhythm Neurological: no seizure activity noted on physical exam. left babinski, does not respond to commands or most painful stimuli. Integementary: no rash, no erythema Psychiatric: mood and affect appropriate - Labs CBC & Chem 7: 10/17/16 03:00 10/17/16 14:30 Labs: Abnormal Lab Results - Last 24 Hours (Table) 10/16/16 10/16/16 10/16/16 Range/Units 16:58 18:21 20:12 RBC (4.30-5.90) m/uL Hgb (13.0-17.5) gm/dL Hct (39.0-53.0) % Neutrophils # (1.3-7.7) k/uL Lymphocytes # (1.0-4.8) k/uL ABG pH (7.35-7.45) ABG pCO2 (35-45) mmHg ABG pO2 (83-108) mmHg ABG Total CO2 (19-24) mmol/L Potassium (3.5-5.1) mmol/L Chloride (98-107) mmol/L BUN (9-20) mg/dL Glucose (74-99) mg/dL POC Glucose (mg/dL) 153 H 164 H 177 H (75-99) mg/dL Total Protein (6.3-8.2) g/dL Albumin (3.5-5.0) g/dL 10/16/16 10/16/16 10/17/16 Range/Units 22:20 22:23 00:02 RBC (4.30-5.90) m/uL Hgb (13.0-17.5) gm/dL Hct (39.0-53.0) % Neutrophils # (1.3-7.7) k/uL Lymphocytes # (1.0-4.8) k/uL ABG pH (7.35-7.45) ABG pCO2 (35-45) mmHg ABG pO2 (83-108) mmHg ABG Total CO2 (19-24) mmol/L Potassium 3.2 L (3.5-5.1) mmol/L Chloride (98-107) mmol/L BUN (9-20) mg/dL Glucose (74-99) mg/dL POC Glucose (mg/dL) 153 H 129 H (75-99) mg/dL Total Protein (6.3-8.2) g/dL Albumin (3.5-5.0) g/dL 10/17/16 10/17/16 10/17/16 Range/Units 01:10 01:46 03:00 RBC 2.60 L (4.30-5.90) m/uL Hgb 7.6 L (13.0-17.5) gm/dL Hct 22.7 L (39.0-53.0) % Neutrophils # 8.6 H (1.3-7.7) k/uL Lymphocytes # 0.9 L (1.0-4.8) k/uL ABG pH (7.35-7.45) ABG pCO2 (35-45) mmHg ABG pO2 (83-108) mmHg ABG Total CO2 (19-24) mmol/L Potassium (3.5-5.1) mmol/L Chloride (98-107) mmol/L BUN (9-20) mg/dL Glucose (74-99) mg/dL POC Glucose (mg/dL) 200 H 214 H (75-99) mg/dL Total Protein (6.3-8.2) g/dL Albumin (3.5-5.0) g/dL 10/17/16 10/17/16 10/17/16 Range/Units 03:00 03:09 03:55 RBC (4.30-5.90) m/uL Hgb (13.0-17.5) gm/dL Hct (39.0-53.0) % Neutrophils # (1.3-7.7) k/uL Lymphocytes # (1.0-4.8) k/uL ABG pH (7.35-7.45) ABG pCO2 (35-45) mmHg ABG pO2 (83-108) mmHg ABG Total CO2 (19-24) mmol/L Potassium (3.5-5.1) mmol/L Chloride 112 H (98-107) mmol/L BUN 39 H (9-20) mg/dL Glucose 198 H (74-99) mg/dL POC Glucose (mg/dL) 201 H 192 H (75-99) mg/dL Total Protein 4.4 L (6.3-8.2) g/dL Albumin 2.3 L (3.5-5.0) g/dL 10/17/16 10/17/16 10/17/16 Range/Units 04:36 05:05 06:07 RBC (4.30-5.90) m/uL Hgb (13.0-17.5) gm/dL Hct (39.0-53.0) % Neutrophils # (1.3-7.7) k/uL Lymphocytes # (1.0-4.8) k/uL ABG pH 7.48 H (7.35-7.45) ABG pCO2 34 L (35-45) mmHg ABG pO2 80 L (83-108) mmHg ABG Total CO2 26 H (19-24) mmol/L Potassium (3.5-5.1) mmol/L Chloride (98-107) mmol/L BUN (9-20) mg/dL Glucose (74-99) mg/dL POC Glucose (mg/dL) 173 H 179 H (75-99) mg/dL Total Protein (6.3-8.2) g/dL Albumin (3.5-5.0) g/dL 10/17/16 10/17/16 10/17/16 Range/Units 07:00 08:13 10:10 RBC (4.30-5.90) m/uL Hgb (13.0-17.5) gm/dL Hct (39.0-53.0) % Neutrophils # (1.3-7.7) k/uL Lymphocytes # (1.0-4.8) k/uL ABG pH (7.35-7.45) ABG pCO2 (35-45) mmHg ABG pO2 (83-108) mmHg ABG Total CO2 (19-24) mmol/L Potassium (3.5-5.1) mmol/L Chloride (98-107) mmol/L BUN (9-20) mg/dL Glucose (74-99) mg/dL POC Glucose (mg/dL) 176 H 169 H 160 H (75-99) mg/dL Total Protein (6.3-8.2) g/dL Albumin (3.5-5.0) g/dL 10/17/16 10/17/16 10/17/16 Range/Units 11:43 13:43 15:47 RBC (4.30-5.90) m/uL Hgb (13.0-17.5) gm/dL Hct (39.0-53.0) % Neutrophils # (1.3-7.7) k/uL Lymphocytes # (1.0-4.8) k/uL ABG pH (7.35-7.45) ABG pCO2 (35-45) mmHg ABG pO2 (83-108) mmHg ABG Total CO2 (19-24) mmol/L Potassium (3.5-5.1) mmol/L Chloride (98-107) mmol/L BUN (9-20) mg/dL Glucose (74-99) mg/dL POC Glucose (mg/dL) 193 H 174 H 166 H (75-99) mg/dL Total Protein (6.3-8.2) g/dL Albumin (3.5-5.0) g/dL Microbiology - Last 24 Hours (Table) 10/15/16 14:35 Gram Stain - Final Sputum Sputum Culture - Final 10/15/16 04:02 Blood Culture - Preliminary Blood No Growth after 48 hours 10/15/16 04:10 Blood Culture - Preliminary Blood No Growth after 48 hours 10/13/16 20:20 Blood Culture - Preliminary Blood No Growth after 72 hours Assessment and Plan (1) Acute left-sided weakness Status: Acute (2) Coronary artery disease Status: Acute (3) Acute ischemic stroke Status: Acute Plan: 1. Acute left-sided weakness/acute ischemic stroke: Patient has a complex medical history involving psychiatric disorder as well as coronary artery disease with recent CABG 4. with neurological assessment performed. At this time the patient's EEG is abnormal and noted slowing background rhythm in the theta range. Encephalopathy noted. Patient's carotid Dopplers noted no hemodynamically significant stenosis on the right, left could not be completely evaluated due to a line. CT of the brain 2 as noted in imaging comments previously. Last CT of the brain noted no acute intracranial hemorrhage or midline shift seen. Mild diffuse age-related cerebral atrophy seen. Continue progression of moderate to severe nonspecific white matter changes since admission raising concern for acute ischemia. Continue with current treatment regimen. Continue neuro checks every shift, DVT prophylaxis and notify neurology with any neurological status changes. Continue aspirin 325 mg by mouth daily, continue Lipitor 40 mg by mouth daily at bedtime. Ordered: MRI Brain, MRA neck canceled Ordered: CT Brain, CT- angiogram head and neck Status: Neurology will continue to follow and provide further information is needed or warranted. Feel free to contact our office with any questions I discussed the patient's pertinent medical information with Dr. Maloney. He agrees with the plan of care as implemented.
[2016-10-17] MEDS: SODIUM FERRIC GLUCONAT-SUCROSE 125 MG in SODIUM CHLORIDE 0.9% 100 ML IVPB SCH (17:40)
[2016-10-17] MEDS: LACTATED RINGERS 1,000 ML IV SCH (17:40)
[2016-10-17 18:51] LABS: Glucose,Whole Blood 142 mg/dL (75-99)
[2016-10-17 20:27] LABS: Glucose,Whole Blood 138 mg/dL (75-99)
[2016-10-17] MEDS: SENNOSIDES-DOCUSATE SODIUM 1 EACH TAB PO SCH (20:46)
[2016-10-17] MEDS: INSULIN GLARGINE 100 UNIT/ML 10 ML VIAL SQ SCH (20:50)
[2016-10-17 21:09] LABS: Glucose,Whole Blood 147 mg/dL (75-99)
--- NOTE | 2016-10-17 21:37 | PN ---
PROGRESS NOTE CHIEF COMPLAINT: A 50-year-old, white male, status post STEMI, ischemic cardiomyopathy, and increased confusion and left-sided weakness suspicious for a stroke. Dr. Maloney's nurse practitioner, physician assistant auditor talked to him today, he agrees for sure it is for sure a stroke in this patient. Weakness has not recovered though. He has Babinski on the left. Moving on the right side. Off sedation, calm, comfortable. Try to get him off Diprivan and wean him off the vent if possible. ABGs were reviewed. Pulmonary and presser all around notes reviewed. He is tolerating his tube feeds. He will need a PEG and a trach hopefully sometime this week. CT angio of the brain was done which was negative. CT of the head was negative. The EEG will be repeated tomorrow. His CT scan did show some possible thoracic adenopathy for which repeat chest scan will be needed. MEDICATIONS: Medications reviewed. PHYSICAL EXAM: Well male on the ventilator at this time. No acute distress. CARDIOVASCULAR: S1, S2. LUNGS: Scattered rhonchi and wheeze. ENT: Ear canals within normal limits. ABDOMEN: Soft, nontender. No masses. No organomegaly. EXTREMITIES: No cyanosis, clubbing, edema. Skin: No rash or bruises. Central nervous system: Mechanical ventilation at this time. LABS: Showed hemoglobin low at 7.6, white count of 10.5, sodium 145, potassium 3.9, BUN is 39, creatinine 0.7. ASSESSMENT: 1. Thoracic adenopathy. 2. Non ST elevation myocardial infarction status post bypass 4 way bypass. 3. Ischemic cardiomyopathy. 4. Uncontrolled diabetes mellitus. 5. Hypertension uncontrolled. 6. Dyslipidemia. 7. Nicotine addiction. PLAN: Due to acute stroke and severe anemia, I am going to give the patient some iron for the next few days through the IV and we will see how that goes. Get his hemoglobin up. Wean him off the ventilator. Continue with Anaprox at this time. CT of the chest to rule out a thoracic adenopathy what possibly could be wrong with his chest with adenopathy. ICU time 30 minutes. MMODL / IJN: [id number] /
[2016-10-17 22:14] LABS: Glucose,Whole Blood 125 mg/dL (75-99)
[2016-10-17 23:02] LABS: Glucose,Whole Blood 122 mg/dL (75-99)
[2016-10-17] MEDS: HYDROcodone/APAP 5-325MG 1 EACH TAB PO PRN (23:37)
[2016-10-17 23:54] LABS: Glucose,Whole Blood 170 mg/dL (75-99)
[2016-10-18 00:42] LABS: Glucose,Whole Blood 158 mg/dL (75-99)
[2016-10-18 01:54] LABS: Glucose,Whole Blood 151 mg/dL (75-99)
[2016-10-18] MEDS: INSULIN REGULAR 100 UNIT in SODIUM CHLORIDE 0.9% 100 ML IV SCH ×2 (01:58→12:01)
[2016-10-18] MEDS ORDERED: ACETAMINOPHEN IV (For NPO) 1,000 MG in EMPTY BAG 1 BAG IVPB ONE (03:22)
[2016-10-18] MEDS: PIPERACILLIN-TAZOBACTAM 3.375 GM in DEXTROSE/WATER 1 50ML.BAG IVPB SCH ×3 (03:30→20:17)
[2016-10-18 04:05] LABS: Glucose,Whole Blood 133 mg/dL (75-99)
[2016-10-18 05:07] LABS: Glucose,Whole Blood 157 mg/dL (75-99)
[2016-10-18 05:14] LABS: Basophils % (A) 0 %; CH 28.5; CHCM 33.1; Eosinophils # (A) 0.3 k/uL (0-0.7); Eosinophils % (A) 3 %; HCT 21.6 % (39.0-53.0); HDW 4.26; HGB 7.5 gm/dL (13.0-17.5); Hypochromasia Slight; Luc # (Auto) 0.39; Luc % (Auto) 4; Lymphocytes # (A) 1.2 k/uL (1.0-4.8); Lymphocytes % (A) 13 %; MCHC 34.6 g/dL (31.0-37.0); MCV 86.8 fL (80.0-100.0); Mean Platelet Volume 7.8; Monocytes # (A) 0.7 k/uL (0-1.0); Monocytes % (A) 7 %; Neutrophils # (A) 6.6 k/uL (1.3-7.7); Neutrophils % (A) 72 %; Poikilocytosis Moderate; RBC 2.49 m/uL (4.30-5.90); RDW 14.6 % (11.5-15.5); WBC 9.2 k/uL (3.8-10.6); WBC (Perox) 9.38
[2016-10-18 05:31] LABS: Ionized Calcium 5.2 mg/dL (4.5-5.3)
[2016-10-18 05:43] LABS: ALT 51 U/L (21-72); AST 32 U/L (17-59); Alkaline Phosphatase 64 U/L (38-126); Anion Gap 5 mmol/L; Blood Urea Nitrogen 35 mg/dL (9-20); Calcium 8.4 mg/dL (8.4-10.2); Carbon Dioxide 27 mmol/L (22-30); Chloride 112 mmol/L (98-107); Glucose 144 mg/dL (74-99); Magnesium 2.1 mg/dL (1.6-2.3); Non-African American GFR(MDRD) >60 (>60 ml/min/1.73 sqM); Phosphorous 4.9 mg/dL (2.5-4.5); Potassium 3.7 mmol/L (3.5-5.1); Sodium 144 mmol/L (137-145); Total Bilirubin 0.4 mg/dL (0.2-1.3); Total Protein 4.3 g/dL (6.3-8.2)
[2016-10-18 05:47] LABS: ABG PCO2 35 mmHg (35-45); ABG PH 7.47 (7.35-7.45)
[2016-10-18 05:48] LABS: ABG Base Excess 1.6 mmol/L; ABG HCO3 25 mmol/L (21-25); ABG PO2 92 mmHg (83-108); ABG TCO2 26 mmol/L (19-24)
[2016-10-18] MEDS ORDERED: Potassium Replacement Protocol 1 EACH MISC MISCELLANE PRN ×3 (06:00→21:05)
[2016-10-18] MEDS ORDERED: POTASSIUM CHLORIDE ORAL LIQUID 40 MEQ/30 ML CUP NG-TUBE SCH (06:00)
[2016-10-18 06:03] LABS: Glucose,Whole Blood 157 mg/dL (75-99)
[2016-10-18] MEDS: PROPOFOL 1,000 MG/100 ML VIAL IV SCH (06:46)
[2016-10-18] MEDS: POTASSIUM CHLORIDE 10 MEQ in WATER FOR INJECTION 1 100ML.BAG IVPB SCH ×4 (07:11→15:13)
[2016-10-18] MEDS: IPRATROPIUM-ALBUTEROL 3 ML NEB INHALATION SCH ×4 (07:30→19:10)
--- NOTE | 2016-10-18 07:54 | XR ---
EXAMINATION TYPE: XR chest 1V portable DATE OF EXAM: 10/18/2016 COMPARISON: Previous chest x-ray 10/17/2016 HISTORY: Intubated TECHNIQUE: Single frontal view of the chest is obtained. FINDINGS: Endotracheal tube, NG tube, left jugular central venous catheter, overlying cardiac leads are again noted. Lung volumes are low and the patient is rotated. The heart is enlarged. Prominence o f the central vascularity again noted, bibasilar increased density is present. The patient is post me jayna sternotomy. No sizable pneumothorax. IMPRESSION: There may be a component of volume overload, pulmonary venous hypertension and interstit ial edema. Possible basilar atelectasis, difficult to exclude small effusion. Follow-up recommended.
[2016-10-18 08:09] LABS: Glucose,Whole Blood 119 mg/dL (75-99)
--- NOTE | 2016-10-18 08:11 | P.PN ---
Subjective Principal diagnosis: CAD status post CABG I'm seeing the patient for the first time today. Patient had bypass surgery on October 10 and apparently had a CVA with left hemiparalysis probably intra-or perioperatively. He is currently intubated on vent sedated and unresponsive. Patient remains in sinus rhythm. Hemodynamically stable. Currently the plan is to perform a tracheostomy and PEG tube placement on him Objective - Vital Signs Vital signs: Vital Signs Temp 99.8 F H 10/18/16 07:00 Pulse 80 10/18/16 08:02 Resp 22 10/18/16 07:00 BP 142/62 10/18/16 06:09 Pulse Ox 97 10/18/16 07:00 Intake & Output 10/17/16 10/18/16 10/18/16 18:59 06:59 18:59 Intake Total 3866.538 9030.441 120 Output Total 1635 750 85 Balance -107.494 610.441 35 Weight 94.3 kg 95.4 kg Intake: IV 302.5 320.0 120 Lactated Ringers 1,000 ml 240 220 20 @ 20 mls/hr IV .Q24H [facility] Rx#:[id number] Piperacillin-Tazobactam 3 62.5 100.0 .375 gm In Dextrose/Water 1 50ml.bag @ 12.5 mls/hr IVPB Q8H [facility] Rx#: [id number] Potassium Chloride 10 meq 100 In Water For Injection 1 100ml.bag @ 100 mls/hr IVPB Q1H [facility] Rx#: [id number] Intake, IV Titration 455.006 240.441 Amount Insulin Regular 100 unit 101.387 81.659 In Sodium Chloride 0.9% 100 ml @ Per Protocol IV .Q0M [facility] Rx#:[id number] Potassium Chloride 10 meq 200 In Water For Injection 1 100ml.bag @ 100 mls/hr IVPB Q1H [facility] Rx#: [id number] Propofol 1,000 mg In 100 53.619 158.782 ml @ Titrate IV .Q0M [facility] Rx#:[id number] Sodium Ferric Gluconat- 100 Sucrose 125 mg In Sodium Chloride 0.9% 100 ml @ 100 mls/hr IVPB Q24H [facility] Rx#:[id number] Tube Feeding 770 710 Other 90 Output: Urine 1635 750 85 Other: Voiding Method Indwelling Catheter Indwelling Catheter # Voids 1 ABP, PAP, CO, CI - Last Documented Arterial Blood Pressure 141/63 Pulmonary Artery Pressure 27/13 Cardiac Output 9.2 Cardiac Index 4.5 - Exam Patient is intubated sedated and on vent Heart rate is 76 bpm blood pressure is 140/80 respirations 16 patient is unresponsive chest exam reveals diminished air entry at the bases heart exam reveals first and second heart sounds no gallop no murmur examination extremities did not reveal any edema peripheral pulses are palpable - Labs CBC & Chem 7: 10/18/16 05:00 10/18/16 05:00 Labs: Abnormal Lab Results - Last 24 Hours (Table) 10/17/16 10/17/16 10/17/16 Range/Units 08:13 10:10 11:43 RBC (4.30-5.90) m/uL Hgb (13.0-17.5) gm/dL Hct (39.0-53.0) % ABG pH (7.35-7.45) ABG Total CO2 (19-24) mmol/L ABG O2 Saturation (94-97) % Chloride (98-107) mmol/L BUN (9-20) mg/dL Glucose (74-99) mg/dL POC Glucose (mg/dL) 169 H 160 H 193 H (75-99) mg/dL Phosphorus (2.5-4.5) mg/dL Total Protein (6.3-8.2) g/dL Albumin (3.5-5.0) g/dL 10/17/16 10/17/16 10/17/16 Range/Units 13:43 15:47 18:49 RBC (4.30-5.90) m/uL Hgb (13.0-17.5) gm/dL Hct (39.0-53.0) % ABG pH (7.35-7.45) ABG Total CO2 (19-24) mmol/L ABG O2 Saturation (94-97) % Chloride (98-107) mmol/L BUN (9-20) mg/dL Glucose (74-99) mg/dL POC Glucose (mg/dL) 174 H 166 H 142 H (75-99) mg/dL Phosphorus (2.5-4.5) mg/dL Total Protein (6.3-8.2) g/dL Albumin (3.5-5.0) g/dL 10/17/16 10/17/16 10/17/16 Range/Units 20:25 21:08 22:12 RBC (4.30-5.90) m/uL Hgb (13.0-17.5) gm/dL Hct (39.0-53.0) % ABG pH (7.35-7.45) ABG Total CO2 (19-24) mmol/L ABG O2 Saturation (94-97) % Chloride (98-107) mmol/L BUN (9-20) mg/dL Glucose (74-99) mg/dL POC Glucose (mg/dL) 138 H 147 H 125 H (75-99) mg/dL Phosphorus (2.5-4.5) mg/dL Total Protein (6.3-8.2) g/dL Albumin (3.5-5.0) g/dL 10/17/16 10/17/16 10/18/16 Range/Units 23:00 23:52 00:41 RBC (4.30-5.90) m/uL Hgb (13.0-17.5) gm/dL Hct (39.0-53.0) % ABG pH (7.35-7.45) ABG Total CO2 (19-24) mmol/L ABG O2 Saturation (94-97) % Chloride (98-107) mmol/L BUN (9-20) mg/dL Glucose (74-99) mg/dL POC Glucose (mg/dL) 122 H 170 H 158 H (75-99) mg/dL Phosphorus (2.5-4.5) mg/dL Total Protein (6.3-8.2) g/dL Albumin (3.5-5.0) g/dL 10/18/16 10/18/16 10/18/16 Range/Units 01:52 04:03 05:00 RBC 2.49 L (4.30-5.90) m/uL Hgb 7.5 L (13.0-17.5) gm/dL Hct 21.6 L (39.0-53.0) % ABG pH (7.35-7.45) ABG Total CO2 (19-24) mmol/L ABG O2 Saturation (94-97) % Chloride (98-107) mmol/L BUN (9-20) mg/dL Glucose (74-99) mg/dL POC Glucose (mg/dL) 151 H 133 H (75-99) mg/dL Phosphorus (2.5-4.5) mg/dL Total Protein (6.3-8.2) g/dL Albumin (3.5-5.0) g/dL 10/18/16 10/18/16 10/18/16 Range/Units 05:00 05:05 05:33 RBC (4.30-5.90) m/uL Hgb (13.0-17.5) gm/dL Hct (39.0-53.0) % ABG pH 7.47 H (7.35-7.45) ABG Total CO2 26 H (19-24) mmol/L ABG O2 Saturation 98.0 H (94-97) % Chloride 112 H (98-107) mmol/L BUN 35 H (9-20) mg/dL Glucose 144 H (74-99) mg/dL POC Glucose (mg/dL) 157 H (75-99) mg/dL Phosphorus 4.9 H (2.5-4.5) mg/dL Total Protein 4.3 L (6.3-8.2) g/dL Albumin 2.2 L (3.5-5.0) g/dL 10/18/16 Range/Units 06:02 RBC (4.30-5.90) m/uL Hgb (13.0-17.5) gm/dL Hct (39.0-53.0) % ABG pH (7.35-7.45) ABG Total CO2 (19-24) mmol/L ABG O2 Saturation (94-97) % Chloride (98-107) mmol/L BUN (9-20) mg/dL Glucose (74-99) mg/dL POC Glucose (mg/dL) 157 H (75-99) mg/dL Phosphorus (2.5-4.5) mg/dL Total Protein (6.3-8.2) g/dL Albumin (3.5-5.0) g/dL Microbiology - Last 24 Hours (Table) 10/15/16 04:02 Blood Culture - Preliminary Blood No Growth after 72 hours 10/15/16 04:10 Blood Culture - Preliminary Blood No Growth after 72 hours 10/13/16 20:20 Blood Culture - Preliminary Blood No Growth after 96 hours 10/15/16 14:35 Gram Stain - Final Sputum Sputum Culture - Final Assessment and Plan Plan: Assessment: CAD status post CABG Status post CVA with left hemiplegia Plan: Prognosis is guarded. Continue supportive care. Reviewed cardiac medications and will continue the same.
--- NOTE | 2016-10-18 08:29 | P.PN ---
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 Family history of coronary artery disease. POD #8 urgent coronary artery bypass graft surgery 4 vessels with the left internal mammary artery to the left anterior descending artery, left radial artery to the ramus artery, reverse saphenous vein graft to the diagonal artery , reverse saphenous vein graft to posterior descending artery, endoscopic vein harvest left greater saphenous vein, endoscopic harvest of left radial artery, intraoperative transesophageal echocardiogram and epi-aortic scanning. Postoperative re-intubation for airway protection, prolonged mechanical ventilation. Postoperative ischemic stroke, a potential outcome of surgery. Leukocytosis, unknown source as sputum culture, blood culture, urine culture all negative. Patient's currently laying in the bed in no acute distress. Remains sedated on mechanical ventilation. Patient without significant neurological changes in the last 24 hours. Objective - Vital Signs Vital signs: Vital Signs Temp 99.8 F H 10/18/16 07:00 Pulse 80 10/18/16 08:02 Resp 22 10/18/16 07:00 BP 142/62 10/18/16 06:09 Pulse Ox 97 10/18/16 07:00 Intake & Output 10/17/16 10/18/16 10/18/16 18:59 06:59 18:59 Intake Total 2624.956 7314.441 120 Output Total 1635 750 85 Balance -107.494 610.441 35 Weight 94.3 kg 95.4 kg Intake: IV 302.5 320.0 120 Lactated Ringers 1,000 ml 240 220 20 @ 20 mls/hr IV .Q24H [facility] Rx#:[id number] Piperacillin-Tazobactam 3 62.5 100.0 .375 gm In Dextrose/Water 1 50ml.bag @ 12.5 mls/hr IVPB Q8H [facility] Rx#: [id number] Potassium Chloride 10 meq 100 In Water For Injection 1 100ml.bag @ 100 mls/hr IVPB Q1H [facility] Rx#: [id number] Intake, IV Titration 455.006 240.441 Amount Insulin Regular 100 unit 101.387 81.659 In Sodium Chloride 0.9% 100 ml @ Per Protocol IV .Q0M [facility] Rx#:[id number] Potassium Chloride 10 meq 200 In Water For Injection 1 100ml.bag @ 100 mls/hr IVPB Q1H [facility] Rx#: [id number] Propofol 1,000 mg In 100 53.619 158.782 ml @ Titrate IV .Q0M [facility] Rx#:[id number] Sodium Ferric Gluconat- 100 Sucrose 125 mg In Sodium Chloride 0.9% 100 ml @ 100 mls/hr IVPB Q24H [facility] Rx#:[id number] Tube Feeding 770 710 Other 90 Output: Urine 1635 750 85 Other: Voiding Method Indwelling Catheter Indwelling Catheter # Voids 1 ABP, PAP, CO, CI - Last Documented Arterial Blood Pressure 141/63 Pulmonary Artery Pressure 27/13 Cardiac Output 9.2 Cardiac Index 4.5 - Constitutional General appearance: Present: no acute distress - Respiratory Details: Lungs sounds diminished bilaterally. Respirations even, nonlabored on mechanical ventilation. Current ventilator settings assist control mode, FiO2 40%, tidal volume 500, respiratory rate 18, PEEP 0. - Cardiovascular Details: S1, S2 present. Regular rate and rhythm, normal sinus rhythm on telemetry. Sternum stable. No edema present. Palpable pulses bilaterally. Right radial arterial line, left internal jugular triple-lumen central catheter present. Teds/SCDs present. - Gastrointestinal Gastrointestinal Comment(s): Abdomen soft, nontender, nondistended. Active bowel sounds 4 quadrants. OG tube present. Tube feedings on hold as patient is nothing by mouth for tracheostomy placement later today. - Genitourinary Genitourinary Comment(s): Rosario present draining clear, yellow urine. Output 45-100 mL per hour. - Integumentary Integumentary Comment(s): Anterior chest incision well approximated, dry intact dressing. Left lower extremity EVH site well approximated. Mild bruising present. Left radial harvest site well approximated with Dermabond. - Neurologic Neurologic Comment(s): Withdrawal to painful stimuli. It does not open eyes, does not follow commands. Positive left Babinski. Currently sedated with propofol. - Allied health notes Allied health notes reviewed: nursing - Labs CBC & Chem 7: 10/18/16 05:00 10/18/16 05:00 Labs: Abnormal Lab Results - Last 24 Hours (Table) 10/17/16 10/17/16 10/17/16 Range/Units 10:10 11:43 13:43 RBC (4.30-5.90) m/uL Hgb (13.0-17.5) gm/dL Hct (39.0-53.0) % ABG pH (7.35-7.45) ABG Total CO2 (19-24) mmol/L ABG O2 Saturation (94-97) % Chloride (98-107) mmol/L BUN (9-20) mg/dL Glucose (74-99) mg/dL POC Glucose (mg/dL) 160 H 193 H 174 H (75-99) mg/dL Phosphorus (2.5-4.5) mg/dL Total Protein (6.3-8.2) g/dL Albumin (3.5-5.0) g/dL 10/17/16 10/17/16 10/17/16 Range/Units 15:47 18:49 20:25 RBC (4.30-5.90) m/uL Hgb (13.0-17.5) gm/dL Hct (39.0-53.0) % ABG pH (7.35-7.45) ABG Total CO2 (19-24) mmol/L ABG O2 Saturation (94-97) % Chloride (98-107) mmol/L BUN (9-20) mg/dL Glucose (74-99) mg/dL POC Glucose (mg/dL) 166 H 142 H 138 H (75-99) mg/dL Phosphorus (2.5-4.5) mg/dL Total Protein (6.3-8.2) g/dL Albumin (3.5-5.0) g/dL 10/17/16 10/17/16 10/17/16 Range/Units 21:08 22:12 23:00 RBC (4.30-5.90) m/uL Hgb (13.0-17.5) gm/dL Hct (39.0-53.0) % ABG pH (7.35-7.45) ABG Total CO2 (19-24) mmol/L ABG O2 Saturation (94-97) % Chloride (98-107) mmol/L BUN (9-20) mg/dL Glucose (74-99) mg/dL POC Glucose (mg/dL) 147 H 125 H 122 H (75-99) mg/dL Phosphorus (2.5-4.5) mg/dL Total Protein (6.3-8.2) g/dL Albumin (3.5-5.0) g/dL 10/17/16 10/18/16 10/18/16 Range/Units 23:52 00:41 01:52 RBC (4.30-5.90) m/uL Hgb (13.0-17.5) gm/dL Hct (39.0-53.0) % ABG pH (7.35-7.45) ABG Total CO2 (19-24) mmol/L ABG O2 Saturation (94-97) % Chloride (98-107) mmol/L BUN (9-20) mg/dL Glucose (74-99) mg/dL POC Glucose (mg/dL) 170 H 158 H 151 H (75-99) mg/dL Phosphorus (2.5-4.5) mg/dL Total Protein (6.3-8.2) g/dL Albumin (3.5-5.0) g/dL 10/18/16 10/18/16 10/18/16 Range/Units 04:03 05:00 05:00 RBC 2.49 L (4.30-5.90) m/uL Hgb 7.5 L (13.0-17.5) gm/dL Hct 21.6 L (39.0-53.0) % ABG pH (7.35-7.45) ABG Total CO2 (19-24) mmol/L ABG O2 Saturation (94-97) % Chloride 112 H (98-107) mmol/L BUN 35 H (9-20) mg/dL Glucose 144 H (74-99) mg/dL POC Glucose (mg/dL) 133 H (75-99) mg/dL Phosphorus 4.9 H (2.5-4.5) mg/dL Total Protein 4.3 L (6.3-8.2) g/dL Albumin 2.2 L (3.5-5.0) g/dL 10/18/16 10/18/16 10/18/16 Range/Units 05:05 05:33 06:02 RBC (4.30-5.90) m/uL Hgb (13.0-17.5) gm/dL Hct (39.0-53.0) % ABG pH 7.47 H (7.35-7.45) ABG Total CO2 26 H (19-24) mmol/L ABG O2 Saturation 98.0 H (94-97) % Chloride (98-107) mmol/L BUN (9-20) mg/dL Glucose (74-99) mg/dL POC Glucose (mg/dL) 157 H 157 H (75-99) mg/dL Phosphorus (2.5-4.5) mg/dL Total Protein (6.3-8.2) g/dL Albumin (3.5-5.0) g/dL 10/18/16 Range/Units 08:06 RBC (4.30-5.90) m/uL Hgb (13.0-17.5) gm/dL Hct (39.0-53.0) % ABG pH (7.35-7.45) ABG Total CO2 (19-24) mmol/L ABG O2 Saturation (94-97) % Chloride (98-107) mmol/L BUN (9-20) mg/dL Glucose (74-99) mg/dL POC Glucose (mg/dL) 119 H (75-99) mg/dL Phosphorus (2.5-4.5) mg/dL Total Protein (6.3-8.2) g/dL Albumin (3.5-5.0) g/dL Microbiology - Last 24 Hours (Table) 10/15/16 04:02 Blood Culture - Preliminary Blood No Growth after 72 hours 10/15/16 04:10 Blood Culture - Preliminary Blood No Growth after 72 hours 10/13/16 20:20 Blood Culture - Preliminary Blood No Growth after 96 hours 10/15/16 14:35 Gram Stain - Final Sputum Sputum Culture - Final - Imaging and Cardiology Chest x-ray: report reviewed, image reviewed Assessment and Plan (1) Tobacco dependence in remission Status: Acute (2) Recovering alcoholic in remission Status: Acute (3) Drug addiction in remission Status: Acute (4) Bipolar 1 disorder Status: Acute (5) CHF NYHA class III (symptoms with mildly strenuous activities) Status: Acute (6) COPD (chronic obstructive pulmonary disease) Status: Acute (7) Coronary artery disease Status: Acute (8) Hypertension Status: Acute (9) Non-STEMI (non-ST elevated myocardial infarction) Status: Acute (10) Uncontrolled type 2 diabetes mellitus Status: Acute Plan: 1. Continue aspirin, statin, Plavix, heparin subcu, beta caleb. Will maximize beta caleb therapy as tolerated. 2. Continue oral Cardizem for radial artery spasm prevention. 3. Ventilator management per pulmonary services. Wean O2 as tolerated. Daily CPAP trials to exercise lungs, diaphragm. 4. Antibiotic management per pulmonology services. Cultures negative. 5. MRI ordered by neurology once patient is extubated.CT of chest ordered by PCP to eval thoracic adenopathy, right paratracheal region. 6. Tube feeding on hold for OR. 7. Insulin management per primary care service. 8. GI/DVT prophylaxis. 9. Will monitor daily labs, x-rays. 10. Keep Rosario catheter for strict accurate I and O's. 11. Will obtain PICC line today. 12. OR today for tracheostomy. 13. More recommendations as patient progresses. Time with Patient: Greater than 30
[2016-10-18] MEDS: HEPARIN SODIUM,PORCINE 5,000 UNIT/ML 1 ML VIAL SQ SCH ×3 (08:34→20:21)
[2016-10-18] MEDS: CHLORHEXIDINE GLUCONATE 15 ML CUP MUCOUS MEM SCH ×2 (08:34→20:18)
[2016-10-18] MEDS: PANTOPRAZOLE 40 MG/10 ML VIAL IVP SCH (08:34)
[2016-10-18] MEDS: METOPROLOL TARTRATE 25 MG TAB PO SCH ×2 (08:35→20:19)
[2016-10-18] MEDS: ATORVASTATIN 40 MG TAB PO SCH (08:45)
[2016-10-18] MEDS: DILTIAZEM ORAL 30 MG TAB PO SCH ×4 (08:45→21:33)
[2016-10-18] MEDS ORDERED: LIDOCAINE 2% INJ 20 MG/ML SQ ONE (09:28)
[2016-10-18 09:34] LABS: Cholesterol 96 mg/dL (<200); HDL Cholesterol 15 mg/dL (40-60)
--- NOTE | 2016-10-18 10:08 | XR ---
EXAMINATION TYPE: XR chest 1V DATE OF EXAM: 10/18/2016 COMPARISON: Prior chest x-ray 10/18/2016 HISTORY: Status post PICC line placement TECHNIQUE: Single frontal view of the chest is obtained. FINDINGS: There is been interval placement of a right-sided PICC line, the distal tip is overlying s uperior vena cava. No other significant interval change, there is no evident pneumothorax. IMPRESSION: No evident complication status post right-sided PICC line placement.
[2016-10-18 10:13] LABS: Glucose,Whole Blood 116 mg/dL (75-99)
[2016-10-18 10:13] LABS: Glucose,Whole Blood 120 mg/dL (75-99)
--- NOTE | 2016-10-18 10:40 | IR ---
PICC LINE PLACEMENT: HISTORY: Infection requiring long-term antibiotic therapy PROCEDURE: Ultrasound guidance of PICC line placement. COMPLICATIONS: None ANESTHESIA: 1. 1% Lidocaine locally. FINDINGS/TECHNIQUE: The procedure was explained to the patient. The risks, complications, benefits and alternatives were discussed and any questions were answered. Informed consent was obtained. The patient was placed supine on the fluoroscopic table and prepped and draped in the usual sterile fash ion. Utilizing a 21 gauge needle and sonographic guidance, access in the left basilic vein was achi eved and there is placement of a 0.018 guidewire. The vein is patent. A 5-F. Sheath was placed over the guidewire. The guidewire and dilator were removed and a 5-F. Double lumen PICC line was placed through the sheath with the chest x-ray confirming the tip at the level of the SVC. The sheath was r emoved, the catheter was flushed and sutured into position. The patient was stable throughout the pr ocedure and remained stable upon discharge from the Department of Radiology. The vein puncture was patent under ultrasound. A bryant scale image was obtained to document patency of the vein punctured. All elements of the maximal barrier technique were utilized. No images supplied. IMPRESSION: 1. Successful PICC line placement under ultrasound performed bedside within the ICU.
--- NOTE | 2016-10-18 11:26 | PN ---
PROGRESS NOTE ICU time 30 minutes. SUBJECTIVE: 50-year-old, white male, status post CVA with left hemiparesis. Status post CABG surgery. Discussed the case with the family member who is here, the patient's father. Going to go for trach and PEG today and PICC line. Glucose has been better in the mid 100s to 200s. Discussed thoracic adenopathy with the father of the patient and will work up with a CT scan down the road of the chest pain. He remains on Plavix, Cardizem, Peridex, Lipitor, DuoNeb, heparin, Revloc, Lantus, insulin, replacement electrolyte protocol. No vasopressors are needed at this time. Protonix. Diprivan has been weaned. He will go for a PEG tube as he has been a little bit obtunded and sleepy due to stroke, postop CABG. PHYSICAL EXAMINATION: Vital signs showed temp 99.8, pulse 70s, respiratory rate 18 to 22, cardiovascular S1, S2. Lungs scattered rhonchi and wheeze. Hematology negative Homans. Psych fair mood and affect. Neurologic alert and oriented times zero. He is sleeping comfortably on the ventilator. GI: Soft. He has compression stockings on both legs. He is pretty much sedated at this time. LABORATORY DATA: Hemoglobin was 7.5. Venofer has been ordered on a daily basis. I discussed this with neurology who has no problem with be giving Venofer, iron on a daily basis. We will continue with Venofer iron supplementation. Wean trach and PEG. Please see further orders in the chart. All consults appreciated. ICU note 30 minutes. MMODL / IJN: [id number] /
--- NOTE | 2016-10-18 11:32 | CONS ---
CONSULTATION DATE OF CONSULTATION: October 12, 2016. CHIEF COMPLAINT: Stroke. HISTORY OF PRESENT ILLNESS: Mr. Guerrero is a 50-year-old male who is being evaluated by the neurology service today on 10/12/2016 per the request of Dr. Magana for a stroke. The patient is status post coronary artery bypass grafting. Which was done on 10/11/2016. When he was transferred to the intensive care unit, he was noticed that he is not moving his left side. A CT scan of the brain was done, which showed small-vessel ischemic disease. His INR was 1.2. His CBC showed leukocytosis at 13.0, anemia with a hemoglobin of 9.5 and hematocrit at 27% and thrombocytopenia of 112,000. His fasting lipid panel was normal. His comprehensive metabolic profile was normal except for mild hyperglycemia at 169. At the time of my evaluation, the patient was found to be intubated and sedated because he had respiratory difficulties. I had ordered a repeat CT scan of the brain which was done earlier today and it did show mild hypoattenuation involving the right middle cerebral artery distribution along with an old lacunar infarct involving the left caudate. PAST MEDICAL HISTORY: Coronary artery disease, chronic obstructive pulmonary disease, diabetes, gastroesophageal reflux disease, congestive heart failure, bipolar disorder, history of appendectomy and orthopedic surgeries. FAMILY HISTORY: Positive for hypertension and chronic obstructive pulmonary disease and cancer. SOCIAL HISTORY: The patient is a former smoker. There is no history of current use of alcohol or drug use. CURRENT MEDICATIONS: Reviewed in the chart. ALLERGIES: NO KNOWN DRUG ALLERGIES. REVIEW OF SYSTEMS: Unable to obtain, as the patient is sedated and intubated. PHYSICAL EXAM: Vital signs show a temperature of 98.8, pulse 115, respiration 32, blood pressure 129/76. GENERAL APPEARANCE: The patient is a well-developed male who is intubated and sedated. HEENT: Normocephalic, atraumatic. Endotracheal tube is intact. NECK: Supple with no masses felt. CARDIOVASCULAR: Regular rate and rhythm. ABDOMEN: Nondistended. Extremities showed trace edema. NEUROLOGICAL: The patient is sedated and arousable. No obvious facial asymmetry is seen. Brainstem reflexes are intact. Plantar reflex showed Babinski sign on the left. No seizure-like activity is seen. IMPRESSION: 1. Acute ischemic stroke, right middle cerebral artery distribution. 2. Left hemiparesis. 3. Status post coronary artery bypass grafting. 4. Respiratory failure. RECOMMENDATION: The patient does appear to have suffered a postoperative stroke involving the right middle cerebral artery distribution. He did have respiratory distress and had to be re- intubated. Pulmonology is following the patient. From a neurology standpoint, we will maintain him on rectal aspirin 300 mg daily. I will order a carotid Doppler and serum homocystine level. An EEG has been ordered. Continue IV hydration as tolerated. Continue neuro checks. Prognosis is guarded. I will continue to follow with you. Further recommendations to follow. Thank you for allowing me to participate in the care of your patient. If you have any questions, please feel free to contact me. ALFA / IJN: [id number] /
[2016-10-18] MEDS: LACTATED RINGERS 1,000 ML IV SCH (11:58)
[2016-10-18 12:02] LABS: Glucose,Whole Blood 138 mg/dL (75-99)
[2016-10-18 12:04] LABS: Glucose,Whole Blood 106 mg/dL (75-99)
[2016-10-18] MEDS: hydrALAZINE HCL 20 MG/ML 1 ML VIAL IVP PRN (13:04)
[2016-10-18 13:10] LABS: Glucose,Whole Blood 162 mg/dL (75-99)
[2016-10-18 13:48] LABS: Glucose,Whole Blood 155 mg/dL (75-99)
[2016-10-18] MEDS: MORPHINE SULFATE 2 MG/ML SYRINGE IVP PRN (13:53)
[2016-10-18 15:13] LABS: Glucose,Whole Blood 133 mg/dL (75-99)
--- NOTE | 2016-10-18 15:55 | P.PN ---
Subjective Principal diagnosis: Stroke This 50-year-old male continuing to be evaluated by the neurology service for stroke. On 10/11/2016 he had coronary artery bypass grafting. He was transferred to the ICU and left-sided weakness was noted. A CT showed small vessel ischemic disease. At the time of my evaluation she he continues to be intubated and sedated in the ICU. A repeat CT did show mild hypoattenuation in the right middle cerebral artery distribution and an old left caudate lacunar infarct. Objective - Vital Signs Vital signs: Vital Signs Temp 99.2 F 10/18/16 12:00 Pulse 97 10/18/16 15:00 Resp 26 H 10/18/16 15:00 BP 133/73 10/18/16 15:00 Pulse Ox 92 L 10/18/16 15:00 Intake & Output 10/17/16 10/18/16 10/18/16 18:59 06:59 18:59 Intake Total 4477.203 1370.441 756.779 Output Total 1635 750 800 Balance -107.494 610.441 -43.221 Weight 94.3 kg 95.4 kg 95.4 kg Intake: IV 302.5 320.0 611.5 0.9 at KVO 40 0.9 pressure bag 24 Lactated Ringers 1,000 ml 240 220 110 @ 20 mls/hr IV .Q24H [facility] Rx#:[id number] Piperacillin-Tazobactam 3 62.5 100.0 .375 gm In Dextrose/Water 1 50ml.bag @ 12.5 mls/hr IVPB Q8H [facility] Rx#: [id number] Potassium Chloride 10 meq 400 In Water For Injection 1 100ml.bag @ 100 mls/hr IVPB Q1H [facility] Rx#: [id number] zosyn 37.5 Intake, IV Titration 455.006 240.441 95.279 Amount Insulin Regular 100 unit 101.387 81.659 54.261 In Sodium Chloride 0.9% 100 ml @ Per Protocol IV .Q0M [facility] Rx#:[id number] Potassium Chloride 10 meq 200 In Water For Injection 1 100ml.bag @ 100 mls/hr IVPB Q1H [facility] Rx#: [id number] Propofol 1,000 mg In 100 53.619 158.782 41.018 ml @ Titrate IV .Q0M [facility] Rx#:[id number] Sodium Ferric Gluconat- 100 Sucrose 125 mg In Sodium Chloride 0.9% 100 ml @ 100 mls/hr IVPB Q24H [facility] Rx#:[id number] Tube Feeding 770 710 Other 90 50 Output: Urine 1635 750 800 Other: Voiding Method Indwelling Catheter Indwelling Catheter Indwelling Catheter # Voids 1 ABP, PAP, CO, CI - Last Documented Arterial Blood Pressure 147/60 Pulmonary Artery Pressure 27/13 Cardiac Output 9.2 Cardiac Index 4.5 - Constitutional General appearance: Present: average body habitus - EENT Eyes: Present: PERRLA. Absent: abnormal pupil, ptosis - Neck Neck: Absent: rigidity - Cardiovascular Rhythm: regular - Gastrointestinal General gastrointestinal: Absent: distended, tenderness - Neurologic Neurologic Comment(s): Patient is intubated and sedated in the ICU. There is no facial asymmetry. Brainstem reflexes are intact. No tremors or seizure-like activities are seen. - Labs CBC & Chem 7: 10/18/16 05:00 10/18/16 12:00 Labs: Abnormal Lab Results - Last 24 Hours (Table) 10/17/16 10/17/16 10/17/16 Range/Units 15:47 18:49 20:25 RBC (4.30-5.90) m/uL Hgb (13.0-17.5) gm/dL Hct (39.0-53.0) % ABG pH (7.35-7.45) ABG Total CO2 (19-24) mmol/L ABG O2 Saturation (94-97) % Chloride (98-107) mmol/L BUN (9-20) mg/dL Glucose (74-99) mg/dL POC Glucose (mg/dL) 166 H 142 H 138 H (75-99) mg/dL Phosphorus (2.5-4.5) mg/dL Total Protein (6.3-8.2) g/dL Albumin (3.5-5.0) g/dL Triglycerides (<150) mg/dL HDL Cholesterol (40-60) mg/dL 10/17/16 10/17/16 10/17/16 Range/Units 21:08 22:12 23:00 RBC (4.30-5.90) m/uL Hgb (13.0-17.5) gm/dL Hct (39.0-53.0) % ABG pH (7.35-7.45) ABG Total CO2 (19-24) mmol/L ABG O2 Saturation (94-97) % Chloride (98-107) mmol/L BUN (9-20) mg/dL Glucose (74-99) mg/dL POC Glucose (mg/dL) 147 H 125 H 122 H (75-99) mg/dL Phosphorus (2.5-4.5) mg/dL Total Protein (6.3-8.2) g/dL Albumin (3.5-5.0) g/dL Triglycerides (<150) mg/dL HDL Cholesterol (40-60) mg/dL 10/17/16 10/18/16 10/18/16 Range/Units 23:52 00:41 01:52 RBC (4.30-5.90) m/uL Hgb (13.0-17.5) gm/dL Hct (39.0-53.0) % ABG pH (7.35-7.45) ABG Total CO2 (19-24) mmol/L ABG O2 Saturation (94-97) % Chloride (98-107) mmol/L BUN (9-20) mg/dL Glucose (74-99) mg/dL POC Glucose (mg/dL) 170 H 158 H 151 H (75-99) mg/dL Phosphorus (2.5-4.5) mg/dL Total Protein (6.3-8.2) g/dL Albumin (3.5-5.0) g/dL Triglycerides (<150) mg/dL HDL Cholesterol (40-60) mg/dL 10/18/16 10/18/16 10/18/16 Range/Units 04:03 05:00 05:00 RBC 2.49 L (4.30-5.90) m/uL Hgb 7.5 L (13.0-17.5) gm/dL Hct 21.6 L (39.0-53.0) % ABG pH (7.35-7.45) ABG Total CO2 (19-24) mmol/L ABG O2 Saturation (94-97) % Chloride 112 H (98-107) mmol/L BUN 35 H (9-20) mg/dL Glucose 144 H (74-99) mg/dL POC Glucose (mg/dL) 133 H (75-99) mg/dL Phosphorus 4.9 H (2.5-4.5) mg/dL Total Protein 4.3 L (6.3-8.2) g/dL Albumin 2.2 L (3.5-5.0) g/dL Triglycerides (<150) mg/dL HDL Cholesterol (40-60) mg/dL 10/18/16 10/18/16 10/18/16 Range/Units 05:05 05:33 06:02 RBC (4.30-5.90) m/uL Hgb (13.0-17.5) gm/dL Hct (39.0-53.0) % ABG pH 7.47 H (7.35-7.45) ABG Total CO2 26 H (19-24) mmol/L ABG O2 Saturation 98.0 H (94-97) % Chloride (98-107) mmol/L BUN (9-20) mg/dL Glucose (74-99) mg/dL POC Glucose (mg/dL) 157 H 157 H (75-99) mg/dL Phosphorus (2.5-4.5) mg/dL Total Protein (6.3-8.2) g/dL Albumin (3.5-5.0) g/dL Triglycerides (<150) mg/dL HDL Cholesterol (40-60) mg/dL 10/18/16 10/18/16 10/18/16 Range/Units 08:06 09:00 10:10 RBC (4.30-5.90) m/uL Hgb (13.0-17.5) gm/dL Hct (39.0-53.0) % ABG pH (7.35-7.45) ABG Total CO2 (19-24) mmol/L ABG O2 Saturation (94-97) % Chloride (98-107) mmol/L BUN (9-20) mg/dL Glucose (74-99) mg/dL POC Glucose (mg/dL) 119 H 116 H (75-99) mg/dL Phosphorus (2.5-4.5) mg/dL Total Protein (6.3-8.2) g/dL Albumin (3.5-5.0) g/dL Triglycerides 166 H (<150) mg/dL HDL Cholesterol 15 L (40-60) mg/dL 10/18/16 10/18/16 10/18/16 Range/Units 10:11 12:00 12:03 RBC (4.30-5.90) m/uL Hgb (13.0-17.5) gm/dL Hct (39.0-53.0) % ABG pH (7.35-7.45) ABG Total CO2 (19-24) mmol/L ABG O2 Saturation (94-97) % Chloride (98-107) mmol/L BUN (9-20) mg/dL Glucose (74-99) mg/dL POC Glucose (mg/dL) 120 H 138 H 106 H (75-99) mg/dL Phosphorus (2.5-4.5) mg/dL Total Protein (6.3-8.2) g/dL Albumin (3.5-5.0) g/dL Triglycerides (<150) mg/dL HDL Cholesterol (40-60) mg/dL 10/18/16 10/18/16 10/18/16 Range/Units 13:09 13:46 15:11 RBC (4.30-5.90) m/uL Hgb (13.0-17.5) gm/dL Hct (39.0-53.0) % ABG pH (7.35-7.45) ABG Total CO2 (19-24) mmol/L ABG O2 Saturation (94-97) % Chloride (98-107) mmol/L BUN (9-20) mg/dL Glucose (74-99) mg/dL POC Glucose (mg/dL) 162 H 155 H 133 H (75-99) mg/dL Phosphorus (2.5-4.5) mg/dL Total Protein (6.3-8.2) g/dL Albumin (3.5-5.0) g/dL Triglycerides (<150) mg/dL HDL Cholesterol (40-60) mg/dL Microbiology - Last 24 Hours (Table) 10/15/16 04:02 Blood Culture - Preliminary Blood No Growth after 72 hours 10/15/16 04:10 Blood Culture - Preliminary Blood No Growth after 72 hours 10/13/16 20:20 Blood Culture - Preliminary Blood No Growth after 96 hours 10/15/16 14:35 Gram Stain - Final Sputum Sputum Culture - Final Assessment and Plan (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 He remains intubated and sedated in the ICU. He will continue rectal aspirin at 300 mg daily. Continue neurological checks. We will continue to follow and make further recommendations when we are able to do a more focused neurological exam. X I have performed a history and physical on the above patient. I have reviewed the above note, and agree.
[2016-10-18 16:07] LABS: Glucose,Whole Blood 112 mg/dL (75-99)
--- NOTE | 2016-10-18 16:48 | P.PN ---
Subjective Principal diagnosis: Patient seen and evaluated examined during the rounds he is breathing comfortably cough congestion shortness of breath is there but stable and improved he is being evaluated by cardiothoracic surgery for bypass surgery, from respiratory standpoint doing relatively better. Patient has been evaluated by cardiothoracic surgery and cardiology their recommendations reviewed Mr. Matt Guerrero is a 50-year-old male who seen and evaluated examined on 66 floor selective care after his cardiac cath and angiogram which was found to have a diffuse coronary artery disease patient is being considered for possibly CABG 4 by cardiothoracic surgery. This patient has not been doing well for almost 4 weeks with increased shortness breath cough. Sputum production lately has been associated with streaks of blood lately he's been more short of breath started having intermittent chest pain about a week prior to coming hospital started to have left shortness of breath patient admitted into the [facility] with uncontrolled hyperglycemia hemoptysis and very high elevated troponin up to 3 patient had hypertensive urgency and emergency as well however responded well with IV steroids insulin drip and nitro heparin and breathing treatments his hemoptysis is resolved his shortness of breath cough and wheezing improved and his blood pressure improved as well at that point decision was done to transfer the patient into the [facility] for cardiac cath and angiogram. Patient of note that has been a noncompliant has not been taking care of himself the problems associated with the hemoptysis cough shortness of breath and wheezing and diabetes has been relish continued to him he has not seen any doctor physician for many many years As dictated above Patient respiratory status is much better and improve still a mild degree of shortness of breath, but wheezing has improved he has no more episodes of hemoptysis., Patient is being scheduled for bypass surgery early next week, would recommend to DC the steroids monitor patient off of his steroids anticipated that with discontinuation of Solu-Medrol the hyperglycemia will be better under control Patient seen and evaluated examined on the stepdown unit, patient is being prepared for bypass surgery tomorrow he is undergoing deep breathing exercises incentive spirometry continue to use breathing treatments as needed 10/12/2016, patient seen and evaluated examined multiple times critical care time spent the 60 minutes) 35+25 excluding procedures. Care plan discussed with cardiothoracic surgery. Patient noted to have double up left hemiparesis has been moving very restless and agitated continued to require very high oxygen sats are marginal on 100% oxygen nutritional status is very impaired as well her Dobbhoff tube has been attempted but there was coiling in the upper airway swelling eventually was removed. Chest x-ray as well as laboratory data reviewed, computed tomography scan of the chest previous reviewed repeat is pending care plan discussed with the primary service as well as the M.D. as well , chest tubes are stable however the graft harvest site in the left leg is losing due to agitation right wrist has been placed on restraints, patient again reevaluated in the afternoon after the repeat computed tomography scan of the head given that significant intermittent desaturation is present patient has poor gag and computed tomography scan of the head failed to reveal any significant pathology patient continue to be suspected to have a stroke however is not manifested on the computed tomography scan, ABG test results and reports are reviewed patient has been significantly hypoxic with pO2 only 60s on 100% nonrebreather mask patient likely will be very intubated for airway protection 10/18/2016 patient seen and evaluated examined patient remains on full respirator support remains poorly and her unresponsive patient is lightly sedated with propofol with full ventilator support patient is being considered for trach and PEG Clinitron today a new PICC line has been inserted into the right upper extremity, care plan discussed with the cardiothoracic and primary service Objective - Vital Signs Vital signs: Vital Signs Temp 100.6 F H 10/18/16 16:00 Pulse 93 10/18/16 16:00 Resp 28 H 10/18/16 16:00 BP 133/73 10/18/16 16:00 Pulse Ox 94 L 10/18/16 16:00 Intake & Output 10/17/16 10/18/16 10/18/16 18:59 06:59 18:59 Intake Total 1521.060 6903.441 778.233 Output Total 1635 750 925 Balance -107.494 610.441 -146.767 Weight 94.3 kg 95.4 kg 95.4 kg Intake: IV 302.5 320.0 627.5 0.9 at KVO 40 0.9 pressure bag 27 Lactated Ringers 1,000 ml 240 220 120 @ 20 mls/hr IV .Q24H [facility] Rx#:[id number] Piperacillin-Tazobactam 3 62.5 100.0 .375 gm In Dextrose/Water 1 50ml.bag @ 12.5 mls/hr IVPB Q8H [facility] Rx#: [id number] Potassium Chloride 10 meq 400 In Water For Injection 1 100ml.bag @ 100 mls/hr IVPB Q1H [facility] Rx#: [id number] zosyn 40.5 Intake, IV Titration 455.006 240.441 100.733 Amount Insulin Regular 100 unit 101.387 81.659 59.715 In Sodium Chloride 0.9% 100 ml @ Per Protocol IV .Q0M [facility] Rx#:[id number] Potassium Chloride 10 meq 200 In Water For Injection 1 100ml.bag @ 100 mls/hr IVPB Q1H [facility] Rx#: [id number] Propofol 1,000 mg In 100 53.619 158.782 41.018 ml @ Titrate IV .Q0M [facility] Rx#:[id number] Sodium Ferric Gluconat- 100 Sucrose 125 mg In Sodium Chloride 0.9% 100 ml @ 100 mls/hr IVPB Q24H [facility] Rx#:[id number] Tube Feeding 770 710 Other 90 50 Output: Urine 1635 750 925 Other: Voiding Method Indwelling Catheter Indwelling Catheter Indwelling Catheter # Voids 1 ABP, PAP, CO, CI - Last Documented Arterial Blood Pressure 123/53 Pulmonary Artery Pressure 27/13 Cardiac Output 9.2 Cardiac Index 4.5 - Labs CBC & Chem 7: 10/18/16 05:00 10/18/16 12:00 Labs: Abnormal Lab Results - Last 24 Hours (Table) 10/17/16 10/17/16 10/17/16 Range/Units 18:49 20:25 21:08 RBC (4.30-5.90) m/uL Hgb (13.0-17.5) gm/dL Hct (39.0-53.0) % ABG pH (7.35-7.45) ABG Total CO2 (19-24) mmol/L ABG O2 Saturation (94-97) % Chloride (98-107) mmol/L BUN (9-20) mg/dL Glucose (74-99) mg/dL POC Glucose (mg/dL) 142 H 138 H 147 H (75-99) mg/dL Phosphorus (2.5-4.5) mg/dL Total Protein (6.3-8.2) g/dL Albumin (3.5-5.0) g/dL Triglycerides (<150) mg/dL HDL Cholesterol (40-60) mg/dL 10/17/16 10/17/16 10/17/16 Range/Units 22:12 23:00 23:52 RBC (4.30-5.90) m/uL Hgb (13.0-17.5) gm/dL Hct (39.0-53.0) % ABG pH (7.35-7.45) ABG Total CO2 (19-24) mmol/L ABG O2 Saturation (94-97) % Chloride (98-107) mmol/L BUN (9-20) mg/dL Glucose (74-99) mg/dL POC Glucose (mg/dL) 125 H 122 H 170 H (75-99) mg/dL Phosphorus (2.5-4.5) mg/dL Total Protein (6.3-8.2) g/dL Albumin (3.5-5.0) g/dL Triglycerides (<150) mg/dL HDL Cholesterol (40-60) mg/dL 10/18/16 10/18/16 10/18/16 Range/Units 00:41 01:52 04:03 RBC (4.30-5.90) m/uL Hgb (13.0-17.5) gm/dL Hct (39.0-53.0) % ABG pH (7.35-7.45) ABG Total CO2 (19-24) mmol/L ABG O2 Saturation (94-97) % Chloride (98-107) mmol/L BUN (9-20) mg/dL Glucose (74-99) mg/dL POC Glucose (mg/dL) 158 H 151 H 133 H (75-99) mg/dL Phosphorus (2.5-4.5) mg/dL Total Protein (6.3-8.2) g/dL Albumin (3.5-5.0) g/dL Triglycerides (<150) mg/dL HDL Cholesterol (40-60) mg/dL 10/18/16 10/18/16 10/18/16 Range/Units 05:00 05:00 05:05 RBC 2.49 L (4.30-5.90) m/uL Hgb 7.5 L (13.0-17.5) gm/dL Hct 21.6 L (39.0-53.0) % ABG pH (7.35-7.45) ABG Total CO2 (19-24) mmol/L ABG O2 Saturation (94-97) % Chloride 112 H (98-107) mmol/L BUN 35 H (9-20) mg/dL Glucose 144 H (74-99) mg/dL POC Glucose (mg/dL) 157 H (75-99) mg/dL Phosphorus 4.9 H (2.5-4.5) mg/dL Total Protein 4.3 L (6.3-8.2) g/dL Albumin 2.2 L (3.5-5.0) g/dL Triglycerides (<150) mg/dL HDL Cholesterol (40-60) mg/dL 10/18/16 10/18/16 10/18/16 Range/Units 05:33 06:02 08:06 RBC (4.30-5.90) m/uL Hgb (13.0-17.5) gm/dL Hct (39.0-53.0) % ABG pH 7.47 H (7.35-7.45) ABG Total CO2 26 H (19-24) mmol/L ABG O2 Saturation 98.0 H (94-97) % Chloride (98-107) mmol/L BUN (9-20) mg/dL Glucose (74-99) mg/dL POC Glucose (mg/dL) 157 H 119 H (75-99) mg/dL Phosphorus (2.5-4.5) mg/dL Total Protein (6.3-8.2) g/dL Albumin (3.5-5.0) g/dL Triglycerides (<150) mg/dL HDL Cholesterol (40-60) mg/dL 10/18/16 10/18/16 10/18/16 Range/Units 09:00 10:10 10:11 RBC (4.30-5.90) m/uL Hgb (13.0-17.5) gm/dL Hct (39.0-53.0) % ABG pH (7.35-7.45) ABG Total CO2 (19-24) mmol/L ABG O2 Saturation (94-97) % Chloride (98-107) mmol/L BUN (9-20) mg/dL Glucose (74-99) mg/dL POC Glucose (mg/dL) 116 H 120 H (75-99) mg/dL Phosphorus (2.5-4.5) mg/dL Total Protein (6.3-8.2) g/dL Albumin (3.5-5.0) g/dL Triglycerides 166 H (<150) mg/dL HDL Cholesterol 15 L (40-60) mg/dL 10/18/16 10/18/16 10/18/16 Range/Units 12:00 12:03 13:09 RBC (4.30-5.90) m/uL Hgb (13.0-17.5) gm/dL Hct (39.0-53.0) % ABG pH (7.35-7.45) ABG Total CO2 (19-24) mmol/L ABG O2 Saturation (94-97) % Chloride (98-107) mmol/L BUN (9-20) mg/dL Glucose (74-99) mg/dL POC Glucose (mg/dL) 138 H 106 H 162 H (75-99) mg/dL Phosphorus (2.5-4.5) mg/dL Total Protein (6.3-8.2) g/dL Albumin (3.5-5.0) g/dL Triglycerides (<150) mg/dL HDL Cholesterol (40-60) mg/dL 10/18/16 10/18/16 10/18/16 Range/Units 13:46 15:11 16:06 RBC (4.30-5.90) m/uL Hgb (13.0-17.5) gm/dL Hct (39.0-53.0) % ABG pH (7.35-7.45) ABG Total CO2 (19-24) mmol/L ABG O2 Saturation (94-97) % Chloride (98-107) mmol/L BUN (9-20) mg/dL Glucose (74-99) mg/dL POC Glucose (mg/dL) 155 H 133 H 112 H (75-99) mg/dL Phosphorus (2.5-4.5) mg/dL Total Protein (6.3-8.2) g/dL Albumin (3.5-5.0) g/dL Triglycerides (<150) mg/dL HDL Cholesterol (40-60) mg/dL Microbiology - Last 24 Hours (Table) 10/15/16 04:02 Blood Culture - Preliminary Blood No Growth after 72 hours 10/15/16 04:10 Blood Culture - Preliminary Blood No Growth after 72 hours 10/13/16 20:20 Blood Culture - Preliminary Blood No Growth after 96 hours 10/15/16 14:35 Gram Stain - Final Sputum Sputum Culture - Final Assessment and Plan Plan: 1 coronary artery bypass surgery, patient had four-vessel bypass and the patient is postop day #7 2 acute CVA with left-sided weakness. Remains unresponsive. Remains to be weak on the left side with positive Babinski. Neurology is following 3 acute respiratory failure, secondary to diminished level of consciousness and inability to clear rest or secretions. This was done prophylactically to secure an airway. The patient continues to be on a mechanical ventilator and the chest x-ray shows no acute abnormalities. 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 13 bipolar disorder Overall plan is to continue supportive care and antibiotics will keep patient on respirator ventilator data arterial blood gas and laboratory data reviewed, critical care time spent 35 minutes Time with Patient: Greater than 30
[2016-10-18] MEDS ORDERED: fentaNYL (PF) 50 MCG/ML 2 ML AMP ONE (17:17)
[2016-10-18] MEDS ORDERED: PROPOFOL 10 MG/ML 20 ML VIAL IV ONE (17:17)
[2016-10-18] MEDS ORDERED: ROCURONIUM BROMIDE 10 MG/ML 10 ML VIAL IV ONE (17:17)
[2016-10-18] MEDS ORDERED: MIDAZOLAM 2 MG/2 ML VIAL ONE (17:17)
[2016-10-18] MEDS ORDERED: SODIUM CHLORIDE 0.9% 1,000 ML IV ONE (17:44)
[2016-10-18] MEDS ORDERED: SODIUM CHLORIDE 0.9% 500 ML IV ONE (17:44)
[2016-10-18] MEDS: SODIUM FERRIC GLUCONAT-SUCROSE 125 MG in SODIUM CHLORIDE 0.9% 100 ML IVPB SCH (18:40)
[2016-10-18] MEDS: CLOPIDOGREL 75 MG TAB PO SCH (18:40)
[2016-10-18] MEDS: ASPIRIN 325 MG TAB PO SCH (18:40)
[2016-10-18 18:41] LABS: Glucose,Whole Blood 162 mg/dL (75-99)
--- NOTE | 2016-10-18 18:57 | XR ---
EXAMINATION TYPE: XR chest 1V portable DATE OF EXAM: 10/18/2016 COMPARISON: 10/18/2016 HISTORY: Postoperative trach placement TECHNIQUE: Portable AP upright FINDINGS: The tracheostomy tube tip is superimposed over the mid trachea at the level of the clavicul ar heads. Right subclavian line tip superimposed over the distal SVC. New left IJ catheter tip superi mposed over the cavoatrial junction. EKG leads. Sternal sutures and mediastinal clips. NG tube present, the port of which appears to be over the distal esophagus and the NG tube may be bet ter placed 7 cm distally. The lungs appear to be generally clear bilaterally. Pleural spaces appear negative. Cardiac silhouett e mildly moderately enlarged, stable. IMPRESSION: 1. NO PLEURAL OR LUNG PARENCHYMAL PROCESS. 2. GASTRIC TUBE TIP FOR THE MID TRACHEA. 3. NG TUBE MAY BE BETTER PLACED 7 CM DISTALLY.
[2016-10-18 19:58] LABS: Glucose,Whole Blood 147 mg/dL (75-99)
[2016-10-18] MEDS: SENNOSIDES-DOCUSATE SODIUM 1 EACH TAB PO SCH (20:20)
[2016-10-18] MEDS: INSULIN GLARGINE 100 UNIT/ML 10 ML VIAL SQ SCH (20:25)
[2016-10-18 20:51] LABS: Glucose,Whole Blood 129 mg/dL (75-99)
--- NOTE | 2016-10-18 21:02 | XR ---
EXAMINATION TYPE: XR chest 1V portable DATE OF EXAM: 10/18/2016 COMPARISON: 10/18/2016 at 6:43 PM HISTORY: OG tube placement for feeds TECHNIQUE: Single frontal view of the chest is obtained. FINDINGS: Tracheostomy tube tip is superimposed over the mid trachea at the level of the clavicles. S h[place] the prior study the OG tube has been advanced as that its tip is caudal to the level of the josue jorgito fundus. Support lines and catheters are otherwise unchanged. Lungs appear clear. Pleural spaces appear negative. IMPRESSION: 1. OG TUBE PORT AND TIP HAS BEEN ADVANCED SINCE THE PRIOR STUDY AND ARE NOW SUPERIMPOSED OVER THE STO MACH. 2. NO ACUTE PARENCHYMAL PLEURAL PROCESS.
[2016-10-18] MEDS ORDERED: POTASSIUM CHLORIDE ORAL LIQUID 40 MEQ/30 ML CUP NG-TUBE ONE (22:00)
[2016-10-18 22:11] LABS: Glucose,Whole Blood 114 mg/dL (75-99)
[2016-10-18 22:55] LABS: Glucose,Whole Blood 133 mg/dL (75-99)
[2016-10-18 23:57] LABS: Glucose,Whole Blood 156 mg/dL (75-99)
[2016-10-19 01:01] LABS: Glucose,Whole Blood 134 mg/dL (75-99)
[2016-10-19 01:52] LABS: Glucose,Whole Blood 135 mg/dL (75-99)
[2016-10-19 02:44] LABS: Glucose,Whole Blood 137 mg/dL (75-99)
[2016-10-19 04:02] LABS: Glucose,Whole Blood 185 mg/dL (75-99)
[2016-10-19] MEDS: PIPERACILLIN-TAZOBACTAM 3.375 GM in DEXTROSE/WATER 1 50ML.BAG IVPB SCH ×3 (04:10→20:41)
[2016-10-19 04:14] LABS: Anisocytosis Slight; Basophils % (A) 0 %; CH 29.9; CHCM 34.1; Eosinophils # (A) 0.2 k/uL (0-0.7); Eosinophils % (A) 2 %; HCT 23.9 % (39.0-53.0); Hypochromasia Slight; Luc # (Auto) 0.36; Luc % (Auto) 3; Lymphocytes # (A) 1.1 k/uL (1.0-4.8); Lymphocytes % (A) 9 %; MCH 29.6 pg (25.0-35.0); MCHC 33.5 g/dL (31.0-37.0); MCV 88.4 fL (80.0-100.0); Mean Platelet Volume 8.3; Monocytes # (A) 0.8 k/uL (0-1.0); Monocytes % (A) 6 %; Neutrophils # (A) 9.5 k/uL (1.3-7.7); Neutrophils % (A) 79 %; Poikilocytosis Moderate; RBC 2.71 m/uL (4.30-5.90); RDW 16.7 % (11.5-15.5); WBC 12.1 k/uL (3.8-10.6); WBC (Perox) 12.26
[2016-10-19] MEDS: PROPOFOL 1,000 MG/100 ML VIAL IV SCH ×2 (04:20→19:19)
[2016-10-19 04:37] LABS: ALT 47 U/L (21-72); AST 28 U/L (17-59); Alkaline Phosphatase 74 U/L (38-126); Anion Gap 7 mmol/L; Blood Urea Nitrogen 34 mg/dL (9-20); Calcium 8.5 mg/dL (8.4-10.2); Carbon Dioxide 26 mmol/L (22-30); Chloride 112 mmol/L (98-107); Glucose 136 mg/dL (74-99); Magnesium 2.1 mg/dL (1.6-2.3); Non-African American GFR(MDRD) >60 (>60 ml/min/1.73 sqM); Phosphorous 4.3 mg/dL (2.5-4.5); Sodium 145 mmol/L (137-145); Total Bilirubin 0.7 mg/dL (0.2-1.3); Total Protein 4.7 g/dL (6.3-8.2)
[2016-10-19 04:42] LABS: INR 1.2 (<1.2); Prothrombin Time 12.1 sec (9.0-12.0)
[2016-10-19 04:55] LABS: Glucose,Whole Blood 98 mg/dL (75-99)
[2016-10-19 04:56] LABS: Partial Thromboplastin Time 21.2 sec (22.0-30.0)
[2016-10-19 06:09] LABS: Glucose,Whole Blood 149 mg/dL (75-99)
[2016-10-19 06:46] LABS: Glucose,Whole Blood 153 mg/dL (75-99)
[2016-10-19] MEDS: IPRATROPIUM-ALBUTEROL 3 ML NEB INHALATION SCH ×4 (07:32→19:31)
--- NOTE | 2016-10-19 07:43 | P.PN ---
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 Family history of coronary artery disease. POD #9 urgent coronary artery bypass graft surgery 4 vessels with the left internal mammary artery to the left anterior descending artery, left radial artery to the ramus artery, reverse saphenous vein graft to the diagonal artery , reverse saphenous vein graft to posterior descending artery, endoscopic vein harvest left greater saphenous vein, endoscopic harvest of left radial artery, intraoperative transesophageal echocardiogram and epi-aortic scanning. Postoperative re-intubation for airway protection, prolonged mechanical ventilation. Postoperative ischemic stroke, a potential outcome of surgery. Leukocytosis, unknown source as sputum culture, blood culture, urine culture all negative. POD #1 placement of tracheostomy. Patient's currently laying in the bed in no acute distress. Remains sedated on mechanical ventilation. Patient without significant neurological changes in the last 24 hours. Went for tracheostomy placement last night. Will have PEG tube placed today. Objective - Vital Signs Vital signs: Vital Signs Temp 99.8 F H 10/19/16 04:00 Pulse 74 10/19/16 07:00 Resp 22 10/19/16 07:00 BP 161/84 10/18/16 18:31 Pulse Ox 98 10/19/16 07:00 Intake & Output 10/18/16 10/19/16 10/19/16 18:59 06:59 18:59 Intake Total 910.733 888.293 13 Output Total 1087 870 30 Balance -176.267 18.293 -17 Weight 95.4 kg 94.2 kg Intake: IV 760.0 426.0 13 0.9 at KVO 40 160 10 0.9 at KVP 10 20 0.9 pressure bag 30 36 3 Lactated Ringers 1,000 ml 130 10 @ 20 mls/hr IV .Q24H [facility] Rx#:[id number] Piperacillin-Tazobactam 3 50.0 .375 gm In Dextrose/Water 1 50ml.bag @ 12.5 mls/hr IVPB Q8H [facility] Rx#: [id number] Potassium Chloride 10 meq 400 In Water For Injection 1 100ml.bag @ 100 mls/hr IVPB Q1H [facility] Rx#: [id number] Sodium Ferric Gluconat- 100 Sucrose 125 mg In Sodium Chloride 0.9% 100 ml @ 100 mls/hr IVPB Q24H [facility] Rx#:[id number] zosyn 50.0 50.0 Intake, IV Titration 100.733 82.293 Amount Insulin Regular 100 unit 59.715 23.311 In Sodium Chloride 0.9% 100 ml @ Per Protocol IV .Q0M [facility] Rx#:[id number] Propofol 1,000 mg In 100 41.018 58.982 ml @ Titrate IV .Q0M [facility] Rx#:[id number] Oral 50 Tube Feeding 330 Other 50 Output: Urine 1085 870 30 Estimated Blood Loss 2 Other: Voiding Method Indwelling Catheter Indwelling Catheter # Voids 1 ABP, PAP, CO, CI - Last Documented Arterial Blood Pressure 142/64 Pulmonary Artery Pressure 27/13 Cardiac Output 9.2 Cardiac Index 4.5 - Constitutional General appearance: Present: no acute distress - Respiratory Details: Lungs sounds diminished throughout. Respirations even, nonlabored on mechanical ventilation. Current ventilator settings before meals mode, FiO2 50% , tidal volume 500, respiratory rate 18, PEEP 0. #8 Shiley trach present. - Cardiovascular Details: S1, S2 present. Regular rate and rhythm, normal sinus rhythm on telemetry. Sternum stable. Trace generalized edema present. Palpable pulses bilaterally. Right radial arterial line, right brachial PICC line present. Heart hugger, teds, SCDs present. - Gastrointestinal Gastrointestinal Comment(s): Abdomen soft, nontender, nondistended. Hypoactive Bowel sounds present. OG tube present, clamped. Patient is nothing by mouth for PEG placement today. - Genitourinary Genitourinary Comment(s): Rosario present draining clear, yellow urine. Output 35-85 mL per hour. - Integumentary Integumentary Comment(s): Anterior chest incision well approximated and covered with dry intact dressing. Left radial harvest site well approximated with Dermabond. Left lower extremity EVH site well approximated, bruising still present. - Neurologic Neurologic Comment(s): Patient remains sedated on mechanical ventilation. Does withdraw to painful stimuli. Pupils equal, round. and reactive to light and accommodation. Left upgoing Babinski still present. - Psychiatric Psychiatric Comment(s): Sedated on mechanical ventilation. - Allied health notes Allied health notes reviewed: nursing - Labs CBC & Chem 7: 10/19/16 04:00 10/19/16 04:00 Labs: Abnormal Lab Results - Last 24 Hours (Table) 10/18/16 10/18/16 10/18/16 Range/Units 08:06 09:00 10:10 WBC (3.8-10.6) k/uL RBC (4.30-5.90) m/uL Hgb (13.0-17.5) gm/dL Hct (39.0-53.0) % RDW (11.5-15.5) % Neutrophils # (1.3-7.7) k/uL PT (9.0-12.0) sec INR (<1.2) APTT (22.0-30.0) sec Chloride (98-107) mmol/L BUN (9-20) mg/dL Glucose (74-99) mg/dL POC Glucose (mg/dL) 119 H 116 H (75-99) mg/dL Total Protein (6.3-8.2) g/dL Albumin (3.5-5.0) g/dL Triglycerides 166 H (<150) mg/dL HDL Cholesterol 15 L (40-60) mg/dL 10/18/16 10/18/16 10/18/16 Range/Units 10:11 12:00 12:03 WBC (3.8-10.6) k/uL RBC (4.30-5.90) m/uL Hgb (13.0-17.5) gm/dL Hct (39.0-53.0) % RDW (11.5-15.5) % Neutrophils # (1.3-7.7) k/uL PT (9.0-12.0) sec INR (<1.2) APTT (22.0-30.0) sec Chloride (98-107) mmol/L BUN (9-20) mg/dL Glucose (74-99) mg/dL POC Glucose (mg/dL) 120 H 138 H 106 H (75-99) mg/dL Total Protein (6.3-8.2) g/dL Albumin (3.5-5.0) g/dL Triglycerides (<150) mg/dL HDL Cholesterol (40-60) mg/dL 10/18/16 10/18/16 10/18/16 Range/Units 13:09 13:46 15:11 WBC (3.8-10.6) k/uL RBC (4.30-5.90) m/uL Hgb (13.0-17.5) gm/dL Hct (39.0-53.0) % RDW (11.5-15.5) % Neutrophils # (1.3-7.7) k/uL PT (9.0-12.0) sec INR (<1.2) APTT (22.0-30.0) sec Chloride (98-107) mmol/L BUN (9-20) mg/dL Glucose (74-99) mg/dL POC Glucose (mg/dL) 162 H 155 H 133 H (75-99) mg/dL Total Protein (6.3-8.2) g/dL Albumin (3.5-5.0) g/dL Triglycerides (<150) mg/dL HDL Cholesterol (40-60) mg/dL 10/18/16 10/18/16 10/18/16 Range/Units 16:06 18:38 19:57 WBC (3.8-10.6) k/uL RBC (4.30-5.90) m/uL Hgb (13.0-17.5) gm/dL Hct (39.0-53.0) % RDW (11.5-15.5) % Neutrophils # (1.3-7.7) k/uL PT (9.0-12.0) sec INR (<1.2) APTT (22.0-30.0) sec Chloride (98-107) mmol/L BUN (9-20) mg/dL Glucose (74-99) mg/dL POC Glucose (mg/dL) 112 H 162 H 147 H (75-99) mg/dL Total Protein (6.3-8.2) g/dL Albumin (3.5-5.0) g/dL Triglycerides (<150) mg/dL HDL Cholesterol (40-60) mg/dL 10/18/16 10/18/16 10/18/16 Range/Units 20:49 22:09 22:53 WBC (3.8-10.6) k/uL RBC (4.30-5.90) m/uL Hgb (13.0-17.5) gm/dL Hct (39.0-53.0) % RDW (11.5-15.5) % Neutrophils # (1.3-7.7) k/uL PT (9.0-12.0) sec INR (<1.2) APTT (22.0-30.0) sec Chloride (98-107) mmol/L BUN (9-20) mg/dL Glucose (74-99) mg/dL POC Glucose (mg/dL) 129 H 114 H 133 H (75-99) mg/dL Total Protein (6.3-8.2) g/dL Albumin (3.5-5.0) g/dL Triglycerides (<150) mg/dL HDL Cholesterol (40-60) mg/dL 10/18/16 10/19/16 10/19/16 Range/Units 23:56 00:59 01:50 WBC (3.8-10.6) k/uL RBC (4.30-5.90) m/uL Hgb (13.0-17.5) gm/dL Hct (39.0-53.0) % RDW (11.5-15.5) % Neutrophils # (1.3-7.7) k/uL PT (9.0-12.0) sec INR (<1.2) APTT (22.0-30.0) sec Chloride (98-107) mmol/L BUN (9-20) mg/dL Glucose (74-99) mg/dL POC Glucose (mg/dL) 156 H 134 H 135 H (75-99) mg/dL Total Protein (6.3-8.2) g/dL Albumin (3.5-5.0) g/dL Triglycerides (<150) mg/dL HDL Cholesterol (40-60) mg/dL 10/19/16 10/19/16 10/19/16 Range/Units 02:42 03:58 04:00 WBC 12.1 H (3.8-10.6) k/uL RBC 2.71 L (4.30-5.90) m/uL Hgb 8.0 L (13.0-17.5) gm/dL Hct 23.9 L (39.0-53.0) % RDW 16.7 H (11.5-15.5) % Neutrophils # 9.5 H (1.3-7.7) k/uL PT (9.0-12.0) sec INR (<1.2) APTT (22.0-30.0) sec Chloride (98-107) mmol/L BUN (9-20) mg/dL Glucose (74-99) mg/dL POC Glucose (mg/dL) 137 H 185 H (75-99) mg/dL Total Protein (6.3-8.2) g/dL Albumin (3.5-5.0) g/dL Triglycerides (<150) mg/dL HDL Cholesterol (40-60) mg/dL 10/19/16 10/19/16 10/19/16 Range/Units 04:00 04:00 06:07 WBC (3.8-10.6) k/uL RBC (4.30-5.90) m/uL Hgb (13.0-17.5) gm/dL Hct (39.0-53.0) % RDW (11.5-15.5) % Neutrophils # (1.3-7.7) k/uL PT 12.1 H (9.0-12.0) sec INR 1.2 H (<1.2) APTT 21.2 L (22.0-30.0) sec Chloride 112 H (98-107) mmol/L BUN 34 H (9-20) mg/dL Glucose 136 H (74-99) mg/dL POC Glucose (mg/dL) 149 H (75-99) mg/dL Total Protein 4.7 L (6.3-8.2) g/dL Albumin 2.5 L (3.5-5.0) g/dL Triglycerides (<150) mg/dL HDL Cholesterol (40-60) mg/dL 10/19/16 Range/Units 06:45 WBC (3.8-10.6) k/uL RBC (4.30-5.90) m/uL Hgb (13.0-17.5) gm/dL Hct (39.0-53.0) % RDW (11.5-15.5) % Neutrophils # (1.3-7.7) k/uL PT (9.0-12.0) sec INR (<1.2) APTT (22.0-30.0) sec Chloride (98-107) mmol/L BUN (9-20) mg/dL Glucose (74-99) mg/dL POC Glucose (mg/dL) 153 H (75-99) mg/dL Total Protein (6.3-8.2) g/dL Albumin (3.5-5.0) g/dL Triglycerides (<150) mg/dL HDL Cholesterol (40-60) mg/dL Microbiology - Last 24 Hours (Table) 10/15/16 04:02 Blood Culture - Preliminary Blood No Growth after 96 hours 10/15/16 04:10 Blood Culture - Preliminary Blood No Growth after 96 hours 10/13/16 20:20 Blood Culture - Preliminary Blood No Growth after 120 hours - Imaging and Cardiology Chest x-ray: image reviewed Assessment and Plan (1) Tobacco dependence in remission Status: Acute (2) Recovering alcoholic in remission Status: Acute (3) Drug addiction in remission Status: Acute (4) Bipolar 1 disorder Status: Acute (5) CHF NYHA class III (symptoms with mildly strenuous activities) Status: Acute (6) COPD (chronic obstructive pulmonary disease) Status: Chronic (7) Coronary artery disease Status: Chronic (8) Hypertension Status: Chronic (9) Non-STEMI (non-ST elevated myocardial infarction) Status: Acute (10) Uncontrolled type 2 diabetes mellitus Status: Acute (11) Tracheostomy in place Status: Acute Plan: 1. Continue aspirin, statin, Plavix, heparin subcu, beta caleb. Will maximize beta caleb therapy as tolerated. 2. Continue oral Cardizem for radial artery spasm prevention. 3. Ventilator management per pulmonary services. Wean O2 as tolerated. Daily CPAP trials to exercise lungs, diaphragm. 4. Antibiotic management per pulmonology services. Cultures negative. 5. MRI ordered by neurology once patient is extubated. CT of chest canceled her surgery and pulmonology 6. Tube feeding on hold for OR. 7. Insulin management per primary care service. 8. GI/DVT prophylaxis. 9. Will monitor daily labs, x-rays. 10. Keep Rosario catheter for strict accurate I and O's. Will change out Rosario today. 11. Will obtain PEG tube today. 12. More recommendations as patient progresses. Time with Patient: Greater than 30 <Ramesh Klein - Last Filed: 10/19/16 20:06> Objective - Vital Signs Vital signs: Vital Signs Temp 100.6 F H 10/19/16 16:00 Pulse 80 10/19/16 19:41 Resp 21 10/19/16 19:00 BP 143/73 10/19/16 17:00 Pulse Ox 95 10/19/16 19:00 Intake & Output 10/19/16 10/19/16 10/20/16 06:59 18:59 06:59 Intake Total 888.293 348.040 82.944 Output Total 870 735 45 Balance 18.293 -386.960 37.944 Weight 94.2 kg Intake: IV 426.0 256.0 23 0.9 at KVO 160 60 10 0.9 at KVP 20 0.9 pressure bag 36 36 3 LR 110 10 Lactated Ringers 1,000 ml 10 @ 20 mls/hr IV .Q24H [facility] Rx#:[id number] Piperacillin-Tazobactam 3 50.0 .375 gm In Dextrose/Water 1 50ml.bag @ 12.5 mls/hr IVPB Q8H [facility] Rx#: [id number] Sodium Ferric Gluconat- 100 Sucrose 125 mg In Sodium Chloride 0.9% 100 ml @ 100 mls/hr IVPB Q24H [facility] Rx#:[id number] zosyn 50.0 50.0 Intake, IV Titration 82.293 92.040 59.944 Amount Insulin Regular 100 unit 23.311 42.158 0 In Sodium Chloride 0.9% 100 ml @ Per Protocol IV .Q0M [facility] Rx#:[id number] Piperacillin-Tazobactam 3 12.5 .375 gm In Dextrose/Water 1 50ml.bag @ 12.5 mls/hr IVPB Q8H [facility] Rx#: [id number] Propofol 1,000 mg In 100 58.982 37.382 59.944 ml @ Titrate IV .Q0M [facility] Rx#:[id number] Oral 50 Tube Feeding 330 0 Output: Urine 870 735 45 Other: Voiding Method Indwelling Catheter Indwelling Catheter # Voids 1 ABP, PAP, CO, CI - Last Documented Arterial Blood Pressure 128/54 Pulmonary Artery Pressure 27/13 Cardiac Output 9.2 Cardiac Index 4.5 - Labs CBC & Chem 7: 10/19/16 04:00 10/19/16 04:00 Labs: Abnormal Lab Results - Last 24 Hours (Table) 10/18/16 10/18/16 10/18/16 Range/Units 20:49 22:09 22:53 WBC (3.8-10.6) k/uL RBC (4.30-5.90) m/uL Hgb (13.0-17.5) gm/dL Hct (39.0-53.0) % RDW (11.5-15.5) % Neutrophils # (1.3-7.7) k/uL PT (9.0-12.0) sec INR (<1.2) APTT (22.0-30.0) sec Chloride (98-107) mmol/L BUN (9-20) mg/dL Glucose (74-99) mg/dL POC Glucose (mg/dL) 129 H 114 H 133 H (75-99) mg/dL Total Protein (6.3-8.2) g/dL Albumin (3.5-5.0) g/dL 10/18/16 10/19/16 10/19/16 Range/Units 23:56 00:59 01:50 WBC (3.8-10.6) k/uL RBC (4.30-5.90) m/uL Hgb (13.0-17.5) gm/dL Hct (39.0-53.0) % RDW (11.5-15.5) % Neutrophils # (1.3-7.7) k/uL PT (9.0-12.0) sec INR (<1.2) APTT (22.0-30.0) sec Chloride (98-107) mmol/L BUN (9-20) mg/dL Glucose (74-99) mg/dL POC Glucose (mg/dL) 156 H 134 H 135 H (75-99) mg/dL Total Protein (6.3-8.2) g/dL Albumin (3.5-5.0) g/dL 10/19/16 10/19/16 10/19/16 Range/Units 02:42 03:58 04:00 WBC 12.1 H (3.8-10.6) k/uL RBC 2.71 L (4.30-5.90) m/uL Hgb 8.0 L (13.0-17.5) gm/dL Hct 23.9 L (39.0-53.0) % RDW 16.7 H (11.5-15.5) % Neutrophils # 9.5 H (1.3-7.7) k/uL PT (9.0-12.0) sec INR (<1.2) APTT (22.0-30.0) sec Chloride (98-107) mmol/L BUN (9-20) mg/dL Glucose (74-99) mg/dL POC Glucose (mg/dL) 137 H 185 H (75-99) mg/dL Total Protein (6.3-8.2) g/dL Albumin (3.5-5.0) g/dL 10/19/16 10/19/16 10/19/16 Range/Units 04:00 04:00 06:07 WBC (3.8-10.6) k/uL RBC (4.30-5.90) m/uL Hgb (13.0-17.5) gm/dL Hct (39.0-53.0) % RDW (11.5-15.5) % Neutrophils # (1.3-7.7) k/uL PT 12.1 H (9.0-12.0) sec INR 1.2 H (<1.2) APTT 21.2 L (22.0-30.0) sec Chloride 112 H (98-107) mmol/L BUN 34 H (9-20) mg/dL Glucose 136 H (74-99) mg/dL POC Glucose (mg/dL) 149 H (75-99) mg/dL Total Protein 4.7 L (6.3-8.2) g/dL Albumin 2.5 L (3.5-5.0) g/dL 10/19/16 10/19/16 10/19/16 Range/Units 06:45 07:55 09:27 WBC (3.8-10.6) k/uL RBC (4.30-5.90) m/uL Hgb (13.0-17.5) gm/dL Hct (39.0-53.0) % RDW (11.5-15.5) % Neutrophils # (1.3-7.7) k/uL PT (9.0-12.0) sec INR (<1.2) APTT (22.0-30.0) sec Chloride (98-107) mmol/L BUN (9-20) mg/dL Glucose (74-99) mg/dL POC Glucose (mg/dL) 153 H 154 H 162 H (75-99) mg/dL Total Protein (6.3-8.2) g/dL Albumin (3.5-5.0) g/dL 10/19/16 10/19/16 10/19/16 Range/Units 10:12 11:14 12:13 WBC (3.8-10.6) k/uL RBC (4.30-5.90) m/uL Hgb (13.0-17.5) gm/dL Hct (39.0-53.0) % RDW (11.5-15.5) % Neutrophils # (1.3-7.7) k/uL PT (9.0-12.0) sec INR (<1.2) APTT (22.0-30.0) sec Chloride (98-107) mmol/L BUN (9-20) mg/dL Glucose (74-99) mg/dL POC Glucose (mg/dL) 170 H 158 H 144 H (75-99) mg/dL Total Protein (6.3-8.2) g/dL Albumin (3.5-5.0) g/dL 10/19/16 10/19/16 10/19/16 Range/Units 13:22 14:42 16:02 WBC (3.8-10.6) k/uL RBC (4.30-5.90) m/uL Hgb (13.0-17.5) gm/dL Hct (39.0-53.0) % RDW (11.5-15.5) % Neutrophils # (1.3-7.7) k/uL PT (9.0-12.0) sec INR (<1.2) APTT (22.0-30.0) sec Chloride (98-107) mmol/L BUN (9-20) mg/dL Glucose (74-99) mg/dL POC Glucose (mg/dL) 138 H 131 H 124 H (75-99) mg/dL Total Protein (6.3-8.2) g/dL Albumin (3.5-5.0) g/dL 10/19/16 10/19/16 10/19/16 Range/Units 17:16 18:20 19:17 WBC (3.8-10.6) k/uL RBC (4.30-5.90) m/uL Hgb (13.0-17.5) gm/dL Hct (39.0-53.0) % RDW (11.5-15.5) % Neutrophils # (1.3-7.7) k/uL PT (9.0-12.0) sec INR (<1.2) APTT (22.0-30.0) sec Chloride (98-107) mmol/L BUN (9-20) mg/dL Glucose (74-99) mg/dL POC Glucose (mg/dL) 118 H 111 H 125 H (75-99) mg/dL Total Protein (6.3-8.2) g/dL Albumin (3.5-5.0) g/dL Microbiology - Last 24 Hours (Table) 10/15/16 04:02 Blood Culture - Preliminary Blood No Growth after 96 hours 10/15/16 04:10 Blood Culture - Preliminary Blood No Growth after 96 hours 10/13/16 20:20 Blood Culture - Preliminary Blood No Growth after 120 hours Assessment and Plan Plan: The patient was seen and examined. I agree with the above assessment and plan. He underwent tracheostomy yesterday. We will continue trying to wean the vent today. We will continue to wean his sedation as tolerated. He is scheduled to undergo PEG tube tube placement today. I did speak with the patient's mother and sister regarding his condition.
--- NOTE | 2016-10-19 07:48 | XR ---
EXAMINATION TYPE: XR chest 1V portable DATE OF EXAM: 10/19/2016 COMPARISON: 10/18/2016 INDICATION: Postop CABG TECHNIQUE: Single frontal view of the chest is obtained. FINDINGS: The heart size is normal. The pulmonary vasculature is normal. Minimal infiltrate is at the lung bases. Correlate for subsegmental atelectasis. Tracheostomy tube is in the midline. Nasogastric tube transverses the thorax. PICC line enters on the right with the tip in superior vena cava region. IMPRESSION: 1. Mild bibasilar subsegmental atelectasis. 2. Lines and catheters discussed above.
--- NOTE | 2016-10-19 07:50 | EEG ---
ELECTROENCEPHALOGRAM REPORT DATE OF SERVICE: 10/17/2016 REASON FOR TESTING: Stroke. DESCRIPTION OF THE PROCEDURE: This EEG was performed using a 21 channel digital electroencephalograph, following international 10-20 system. DESCRIPTION OF THE RECORDING: From the beginning of the tracing, with patient's eyes closed, the background rhythm was mostly consisting of 8 Hz alpha frequency in the posterior occipital leads. No obvious asymmetry is seen. Occasional muscle artifacts are noticed, more frequently on the right side. Photic stimulation was performed with no driving response seen. No pathological waves were elicited. Hyperventilation was not performed. The patient remains awake throughout the tracing. No epileptiform discharges were seen. His EKG lead showed a regular rate and rhythm. INTERPRETATION: This awake EEG can be considered within normal limits. There was no asymmetry seen. No epileptiform discharges were noticed. The absence of epileptiform discharges does not rule out the diagnosis of epilepsy, therefore clinical correlation is recommended. MMRUTHIEL / IJIona: [id number] /
[2016-10-19 07:56] LABS: Glucose,Whole Blood 154 mg/dL (75-99)
[2016-10-19] MEDS: HEPARIN SODIUM,PORCINE 5,000 UNIT/ML 1 ML VIAL SQ SCH ×2 (07:57→16:19)
[2016-10-19] MEDS: CHLORHEXIDINE GLUCONATE 15 ML CUP MUCOUS MEM SCH ×2 (08:50→20:45)
[2016-10-19] MEDS: PANTOPRAZOLE 40 MG/10 ML VIAL IVP SCH (08:50)
[2016-10-19] MEDS: METOPROLOL TARTRATE 25 MG TAB PO SCH ×2 (08:51→20:45)
[2016-10-19] MEDS: DILTIAZEM ORAL 30 MG TAB PO SCH ×4 (08:51→21:00)
[2016-10-19] MEDS: ATORVASTATIN 40 MG TAB PO SCH (08:51)
--- NOTE | 2016-10-19 09:26 | OP ---
OPERATIVE REPORT DATE OF SERVICE: 10/18/2016 SURGEON: Vladimir Mccoy MD PRESS SUPERVISOR: Trey Avila NP PREOPERATIVE DIAGNOSIS: Respiratory failure. POSTOPERATIVE DIAGNOSIS: Respiratory failure. PROCEDURE: Tracheostomy insertion with a #8 Shiley fenestrated tracheostomy tube. ANESTHESIA: General. ESTIMATED BLOOD LOSS: Scant. SUMMARY: The patient was brought to the operative room and placed in supine position. After administration of a general anesthetic, the neck was prepped and draped and positioned, prepped and draped in normal sterile fashion using chlorhexidine paint and sterile towels. A 2 to 3 cm transverse incision was made in the neck. The platysma was divided. The strap muscles were divided vertically. The isthmus of the thyroid was then retracted superiorly. The 2nd or 3rd tracheal ring was identified and, after switching over to 100% air off oxygen, entrance was made into the trachea. The cuff was lowered and the tracheostomy tube pulled back. The 3rd tracheal ring was then carefully removed using the electrocautery and at this point, a #8 Shiley tracheostomy tube fenestrated was placed in the trachea. The balloon was expanded. There was good end-tidal CO2 return and good ventilatory pressures. Skin incision was then reapproximated using 3-0 nylon vertical mattress sutures. A trach tie was then applied, securing the trach in place. There were no complications. The patient tolerated the procedure well and was taken back to the ICU in stable condition. MMODL / IJN: [id number] /
[2016-10-19 09:28] LABS: Glucose,Whole Blood 162 mg/dL (75-99)
[2016-10-19 10:14] LABS: Glucose,Whole Blood 170 mg/dL (75-99)
--- NOTE | 2016-10-19 10:23 | P.PN ---
Subjective Interval history 10/11/16- patient is being seen examined and evaluated on the intensive care unit. Patient has postop day 1 after CABG 4 with cardiothoracic surgeon. Patient was successfully extubated approximately for 20 this morning. Currently the patient is resting up in bed on 6 L of supplemental oxygen. Patient appears somewhat lethargic. Currently he has a left chest tube as well as mediastinal chest tube. Currently he has been AV epicardial pacemaker connected to a generator with a VVI mode with backup rate of 60 BPM. He has a right radial art line, right IJ. Per the nursing staff he has an ineffective cough as well as an ineffective swallow, he had some difficulty with swallowing earlier they're going to reattempt a swallow evaluation again this afternoon. Patient does have some shortness of breath with exertion, is noted to have some lethargy. 10/12/16- see Dr. Ramírez notes 10/13/16- patient being seen examined and evaluated in the intensive care unit. The patient was reintubated yesterday, for increased secretions as well as hyperventilation. Currently the patient is on assist control mode with a respiratory rate of 22, tidal volume 400, FiO2 50% and 0 PEEP. Continues on propofol for sedation. Tube feeds were also initiated yesterday and the patient is tolerating these well. Patient does have a left-sided internal jugular triple-lumen catheter as well as a right arterial line. Patient continues to exhibit left-sided neglect and neurology is on consult for possible stroke. Chest x-ray from this morning was reviewed and shows stable lines and tubes, cardiomegaly, postsurgical changes of the chest and scattered subsegmental atelectasis. 10/14/16-10/17/[address] Olmos's notes as he was covering 10/18/16- See Dr. Ramírez's note 10/19/16- patient is being seen in evaluated and examined today on the intensive care unit. The patient did undergo a tracheostomy placement yesterday. Currently he has a #8 Shiley, is on mechanical ventilation via the trach with assist control mode with a respiratory rate of 18 tidal volume of 500, FiO2 of 40%. Agent is scheduled to go for a PEG tube today. He continues on propofol for sedation. Patient did have some weaning trial yesterday and was able to be maintained on CPAP mode for approximately 30 minutes. Patient will have another weaning trial today after PEG tube insertion. Urine output has been good. During the sedation holiday the patient is also noted to have some continued left-sided weakness/neglect. Objective - Vital Signs Vital signs: Vital Signs Temp 98.3 F 10/19/16 08:00 Pulse 85 10/19/16 09:00 Resp 18 10/19/16 09:00 BP 148/79 10/19/16 09:00 Pulse Ox 96 10/19/16 09:00 Intake & Output 10/18/16 10/19/16 10/19/16 18:59 06:59 18:59 Intake Total 910.733 888.293 97.214 Output Total 1087 870 160 Balance -176.267 18.293 -62.786 Weight 95.4 kg 94.2 kg Intake: IV 760.0 426.0 39 0.9 at KVO 40 160 10 0.9 at KVP 10 20 0.9 pressure bag 30 36 9 LR 20 Lactated Ringers 1,000 ml 130 10 @ 20 mls/hr IV .Q24H [facility] Rx#:[id number] Piperacillin-Tazobactam 3 50.0 .375 gm In Dextrose/Water 1 50ml.bag @ 12.5 mls/hr IVPB Q8H [facility] Rx#: [id number] Potassium Chloride 10 meq 400 In Water For Injection 1 100ml.bag @ 100 mls/hr IVPB Q1H [facility] Rx#: [id number] Sodium Ferric Gluconat- 100 Sucrose 125 mg In Sodium Chloride 0.9% 100 ml @ 100 mls/hr IVPB Q24H [facility] Rx#:[id number] zosyn 50.0 50.0 Intake, IV Titration 100.733 82.293 58.214 Amount Insulin Regular 100 unit 59.715 23.311 8.332 In Sodium Chloride 0.9% 100 ml @ Per Protocol IV .Q0M [facility] Rx#:[id number] Piperacillin-Tazobactam 3 12.5 .375 gm In Dextrose/Water 1 50ml.bag @ 12.5 mls/hr IVPB Q8H [facility] Rx#: [id number] Propofol 1,000 mg In 100 41.018 58.982 37.382 ml @ Titrate IV .Q0M [facility] Rx#:[id number] Oral 50 Tube Feeding 330 0 Other 50 Output: Urine 1085 870 160 Estimated Blood Loss 2 Other: Voiding Method Indwelling Catheter Indwelling Catheter # Voids 1 ABP, PAP, CO, CI - Last Documented Arterial Blood Pressure 155/68 Pulmonary Artery Pressure 27/13 Cardiac Output 9.2 Cardiac Index 4.5 - Exam GENERAL EXAM: On mechanical ventilation with propofol for sedation HEAD: Normocephalic. EYES: Normal reaction of pupils, equal size. NOSE: Clear with pink turbinates. THROAT: No erythema or exudates. NECK: No masses, no JVD. #8 Shiley trach present CHEST: No chest wall deformity. The anterior chest wall incision with dressing clean dry and intact. LUNGS: Lungs are noted to be coarse throughout Bases diminished. CVS: S1 and S2 normal with no audible mumurs, regular rhythm. ABDOMEN: No hepatosplenomegaly, normal bowel sounds, no guarding or rigidity. OG tube present, tube feeds on hold for PEG tube placement. EXTREMITIES: trace edema noted, pedal pulses palpable. Left lower extremity site clean dry and intact, left radial harvest site clean dry and intact. SKIN: No rashes CENTRAL NERVOUS SYSTEM: On mechanical ventilation with propofol for sedation, withdraws from painful stimuli, during sedation holiday the patient is noted to have a grade 2 out of 5 upper extremity neglect right side remains 5 out of 5. Positive for left-sided Babinski - Labs CBC & Chem 7: 10/19/16 04:00 10/19/16 04:00 Labs: Abnormal Lab Results - Last 24 Hours (Table) 10/18/16 10/18/16 10/18/16 Range/Units 10:10 10:11 12:00 WBC (3.8-10.6) k/uL RBC (4.30-5.90) m/uL Hgb (13.0-17.5) gm/dL Hct (39.0-53.0) % RDW (11.5-15.5) % Neutrophils # (1.3-7.7) k/uL PT (9.0-12.0) sec INR (<1.2) APTT (22.0-30.0) sec Chloride (98-107) mmol/L BUN (9-20) mg/dL Glucose (74-99) mg/dL POC Glucose (mg/dL) 116 H 120 H 138 H (75-99) mg/dL Total Protein (6.3-8.2) g/dL Albumin (3.5-5.0) g/dL 10/18/16 10/18/16 10/18/16 Range/Units 12:03 13:09 13:46 WBC (3.8-10.6) k/uL RBC (4.30-5.90) m/uL Hgb (13.0-17.5) gm/dL Hct (39.0-53.0) % RDW (11.5-15.5) % Neutrophils # (1.3-7.7) k/uL PT (9.0-12.0) sec INR (<1.2) APTT (22.0-30.0) sec Chloride (98-107) mmol/L BUN (9-20) mg/dL Glucose (74-99) mg/dL POC Glucose (mg/dL) 106 H 162 H 155 H (75-99) mg/dL Total Protein (6.3-8.2) g/dL Albumin (3.5-5.0) g/dL 10/18/16 10/18/16 10/18/16 Range/Units 15:11 16:06 18:38 WBC (3.8-10.6) k/uL RBC (4.30-5.90) m/uL Hgb (13.0-17.5) gm/dL Hct (39.0-53.0) % RDW (11.5-15.5) % Neutrophils # (1.3-7.7) k/uL PT (9.0-12.0) sec INR (<1.2) APTT (22.0-30.0) sec Chloride (98-107) mmol/L BUN (9-20) mg/dL Glucose (74-99) mg/dL POC Glucose (mg/dL) 133 H 112 H 162 H (75-99) mg/dL Total Protein (6.3-8.2) g/dL Albumin (3.5-5.0) g/dL 10/18/16 10/18/16 10/18/16 Range/Units 19:57 20:49 22:09 WBC (3.8-10.6) k/uL RBC (4.30-5.90) m/uL Hgb (13.0-17.5) gm/dL Hct (39.0-53.0) % RDW (11.5-15.5) % Neutrophils # (1.3-7.7) k/uL PT (9.0-12.0) sec INR (<1.2) APTT (22.0-30.0) sec Chloride (98-107) mmol/L BUN (9-20) mg/dL Glucose (74-99) mg/dL POC Glucose (mg/dL) 147 H 129 H 114 H (75-99) mg/dL Total Protein (6.3-8.2) g/dL Albumin (3.5-5.0) g/dL 10/18/16 10/18/16 10/19/16 Range/Units 22:53 23:56 00:59 WBC (3.8-10.6) k/uL RBC (4.30-5.90) m/uL Hgb (13.0-17.5) gm/dL Hct (39.0-53.0) % RDW (11.5-15.5) % Neutrophils # (1.3-7.7) k/uL PT (9.0-12.0) sec INR (<1.2) APTT (22.0-30.0) sec Chloride (98-107) mmol/L BUN (9-20) mg/dL Glucose (74-99) mg/dL POC Glucose (mg/dL) 133 H 156 H 134 H (75-99) mg/dL Total Protein (6.3-8.2) g/dL Albumin (3.5-5.0) g/dL 10/19/16 10/19/16 10/19/16 Range/Units 01:50 02:42 03:58 WBC (3.8-10.6) k/uL RBC (4.30-5.90) m/uL Hgb (13.0-17.5) gm/dL Hct (39.0-53.0) % RDW (11.5-15.5) % Neutrophils # (1.3-7.7) k/uL PT (9.0-12.0) sec INR (<1.2) APTT (22.0-30.0) sec Chloride (98-107) mmol/L BUN (9-20) mg/dL Glucose (74-99) mg/dL POC Glucose (mg/dL) 135 H 137 H 185 H (75-99) mg/dL Total Protein (6.3-8.2) g/dL Albumin (3.5-5.0) g/dL 10/19/16 10/19/16 10/19/16 Range/Units 04:00 04:00 04:00 WBC 12.1 H (3.8-10.6) k/uL RBC 2.71 L (4.30-5.90) m/uL Hgb 8.0 L (13.0-17.5) gm/dL Hct 23.9 L (39.0-53.0) % RDW 16.7 H (11.5-15.5) % Neutrophils # 9.5 H (1.3-7.7) k/uL PT 12.1 H (9.0-12.0) sec INR 1.2 H (<1.2) APTT 21.2 L (22.0-30.0) sec Chloride 112 H (98-107) mmol/L BUN 34 H (9-20) mg/dL Glucose 136 H (74-99) mg/dL POC Glucose (mg/dL) (75-99) mg/dL Total Protein 4.7 L (6.3-8.2) g/dL Albumin 2.5 L (3.5-5.0) g/dL 10/19/16 10/19/16 10/19/16 Range/Units 06:07 06:45 07:55 WBC (3.8-10.6) k/uL RBC (4.30-5.90) m/uL Hgb (13.0-17.5) gm/dL Hct (39.0-53.0) % RDW (11.5-15.5) % Neutrophils # (1.3-7.7) k/uL PT (9.0-12.0) sec INR (<1.2) APTT (22.0-30.0) sec Chloride (98-107) mmol/L BUN (9-20) mg/dL Glucose (74-99) mg/dL POC Glucose (mg/dL) 149 H 153 H 154 H (75-99) mg/dL Total Protein (6.3-8.2) g/dL Albumin (3.5-5.0) g/dL 10/19/16 Range/Units 09:27 WBC (3.8-10.6) k/uL RBC (4.30-5.90) m/uL Hgb (13.0-17.5) gm/dL Hct (39.0-53.0) % RDW (11.5-15.5) % Neutrophils # (1.3-7.7) k/uL PT (9.0-12.0) sec INR (<1.2) APTT (22.0-30.0) sec Chloride (98-107) mmol/L BUN (9-20) mg/dL Glucose (74-99) mg/dL POC Glucose (mg/dL) 162 H (75-99) mg/dL Total Protein (6.3-8.2) g/dL Albumin (3.5-5.0) g/dL Microbiology - Last 24 Hours (Table) 10/15/16 04:02 Blood Culture - Preliminary Blood No Growth after 96 hours 10/15/16 04:10 Blood Culture - Preliminary Blood No Growth after 96 hours 10/13/16 20:20 Blood Culture - Preliminary Blood No Growth after 120 hours Assessment and Plan Plan: Assessment Acute hypoxic respiratory failure, small postoperative bilateral pleural effusions Probable CVA with left-sided hemiparesis, cannot be excluded, neurology on consult. 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 Patient is postop day 1 of tracheostomy placement. Patient should remain on mechanical ventilation today with his sedation holiday and weaning parameters after the PEG tube placement. She is scheduled for PEG tube placement today. Labs and reports have been reviewed. Medications have been reviewed and will be continued as ordered. Continue with pulmonary hygiene, and supportive care. . Supplemental oxygen to maintain oxygen saturations of 92% or better. Continue nebulizer treatments. GI and DVT prophylaxis. We will continue to monitor labs/results and adjust treatment as necessary. . Further recommendations pending. I performed an examination of the patient and discussed their management with the nurse practitioner. I have reviewed the nurse practitioner's note and agree with the documented findings and plan of care.
[2016-10-19] MEDS: LACTATED RINGERS 1,000 ML IV SCH (10:30)
[2016-10-19 11:16] LABS: Glucose,Whole Blood 158 mg/dL (75-99)
--- NOTE | 2016-10-19 11:38 | P.PN ---
Subjective Patient had tracheostomy yesterday and still sedated he is going to have a PEG tube done. Remains in sinus rhythm hemodynamically stable, no change in his neurological status Objective - Vital Signs Vital signs: Vital Signs Temp 98.3 F 10/19/16 08:00 Pulse 76 10/19/16 11:00 Resp 20 10/19/16 11:00 BP 148/79 10/19/16 09:00 Pulse Ox 97 10/19/16 11:00 Intake & Output 10/18/16 10/19/16 10/19/16 18:59 06:59 18:59 Intake Total 910.733 888.293 151.244 Output Total 1087 870 295 Balance -176.267 18.293 -143.756 Weight 95.4 kg 94.2 kg Intake: IV 760.0 426.0 85 0.9 at KVO 40 160 30 0.9 at KVP 10 20 0.9 pressure bag 30 36 15 LR 40 Lactated Ringers 1,000 ml 130 10 @ 20 mls/hr IV .Q24H [facility] Rx#:[id number] Piperacillin-Tazobactam 3 50.0 .375 gm In Dextrose/Water 1 50ml.bag @ 12.5 mls/hr IVPB Q8H [facility] Rx#: [id number] Potassium Chloride 10 meq 400 In Water For Injection 1 100ml.bag @ 100 mls/hr IVPB Q1H [facility] Rx#: [id number] Sodium Ferric Gluconat- 100 Sucrose 125 mg In Sodium Chloride 0.9% 100 ml @ 100 mls/hr IVPB Q24H [facility] Rx#:[id number] zosyn 50.0 50.0 Intake, IV Titration 100.733 82.293 66.244 Amount Insulin Regular 100 unit 59.715 23.311 16.362 In Sodium Chloride 0.9% 100 ml @ Per Protocol IV .Q0M [facility] Rx#:[id number] Piperacillin-Tazobactam 3 12.5 .375 gm In Dextrose/Water 1 50ml.bag @ 12.5 mls/hr IVPB Q8H [facility] Rx#: [id number] Propofol 1,000 mg In 100 41.018 58.982 37.382 ml @ Titrate IV .Q0M [facility] Rx#:[id number] Oral 50 Tube Feeding 330 0 Other 50 Output: Urine 1085 870 295 Estimated Blood Loss 2 Other: Voiding Method Indwelling Catheter Indwelling Catheter Indwelling Catheter # Voids 1 ABP, PAP, CO, CI - Last Documented Arterial Blood Pressure 151/74 Pulmonary Artery Pressure 27/13 Cardiac Output 9.2 Cardiac Index 4.5 - Exam Patient is status post tracheostomy vital signs are stable chest exam reveals diminished air entry at the bases heart exam reveals first and second heart sounds no gallop exam extremities did not reveal any edema per for pulses are felt - Labs CBC & Chem 7: 10/19/16 04:00 10/19/16 04:00 Labs: Abnormal Lab Results - Last 24 Hours (Table) 10/18/16 10/18/16 10/18/16 Range/Units 12:00 12:03 13:09 WBC (3.8-10.6) k/uL RBC (4.30-5.90) m/uL Hgb (13.0-17.5) gm/dL Hct (39.0-53.0) % RDW (11.5-15.5) % Neutrophils # (1.3-7.7) k/uL PT (9.0-12.0) sec INR (<1.2) APTT (22.0-30.0) sec Chloride (98-107) mmol/L BUN (9-20) mg/dL Glucose (74-99) mg/dL POC Glucose (mg/dL) 138 H 106 H 162 H (75-99) mg/dL Total Protein (6.3-8.2) g/dL Albumin (3.5-5.0) g/dL 10/18/16 10/18/16 10/18/16 Range/Units 13:46 15:11 16:06 WBC (3.8-10.6) k/uL RBC (4.30-5.90) m/uL Hgb (13.0-17.5) gm/dL Hct (39.0-53.0) % RDW (11.5-15.5) % Neutrophils # (1.3-7.7) k/uL PT (9.0-12.0) sec INR (<1.2) APTT (22.0-30.0) sec Chloride (98-107) mmol/L BUN (9-20) mg/dL Glucose (74-99) mg/dL POC Glucose (mg/dL) 155 H 133 H 112 H (75-99) mg/dL Total Protein (6.3-8.2) g/dL Albumin (3.5-5.0) g/dL 10/18/16 10/18/16 10/18/16 Range/Units 18:38 19:57 20:49 WBC (3.8-10.6) k/uL RBC (4.30-5.90) m/uL Hgb (13.0-17.5) gm/dL Hct (39.0-53.0) % RDW (11.5-15.5) % Neutrophils # (1.3-7.7) k/uL PT (9.0-12.0) sec INR (<1.2) APTT (22.0-30.0) sec Chloride (98-107) mmol/L BUN (9-20) mg/dL Glucose (74-99) mg/dL POC Glucose (mg/dL) 162 H 147 H 129 H (75-99) mg/dL Total Protein (6.3-8.2) g/dL Albumin (3.5-5.0) g/dL 10/18/16 10/18/16 10/18/16 Range/Units 22:09 22:53 23:56 WBC (3.8-10.6) k/uL RBC (4.30-5.90) m/uL Hgb (13.0-17.5) gm/dL Hct (39.0-53.0) % RDW (11.5-15.5) % Neutrophils # (1.3-7.7) k/uL PT (9.0-12.0) sec INR (<1.2) APTT (22.0-30.0) sec Chloride (98-107) mmol/L BUN (9-20) mg/dL Glucose (74-99) mg/dL POC Glucose (mg/dL) 114 H 133 H 156 H (75-99) mg/dL Total Protein (6.3-8.2) g/dL Albumin (3.5-5.0) g/dL 10/19/16 10/19/16 10/19/16 Range/Units 00:59 01:50 02:42 WBC (3.8-10.6) k/uL RBC (4.30-5.90) m/uL Hgb (13.0-17.5) gm/dL Hct (39.0-53.0) % RDW (11.5-15.5) % Neutrophils # (1.3-7.7) k/uL PT (9.0-12.0) sec INR (<1.2) APTT (22.0-30.0) sec Chloride (98-107) mmol/L BUN (9-20) mg/dL Glucose (74-99) mg/dL POC Glucose (mg/dL) 134 H 135 H 137 H (75-99) mg/dL Total Protein (6.3-8.2) g/dL Albumin (3.5-5.0) g/dL 10/19/16 10/19/16 10/19/16 Range/Units 03:58 04:00 04:00 WBC 12.1 H (3.8-10.6) k/uL RBC 2.71 L (4.30-5.90) m/uL Hgb 8.0 L (13.0-17.5) gm/dL Hct 23.9 L (39.0-53.0) % RDW 16.7 H (11.5-15.5) % Neutrophils # 9.5 H (1.3-7.7) k/uL PT (9.0-12.0) sec INR (<1.2) APTT (22.0-30.0) sec Chloride 112 H (98-107) mmol/L BUN 34 H (9-20) mg/dL Glucose 136 H (74-99) mg/dL POC Glucose (mg/dL) 185 H (75-99) mg/dL Total Protein 4.7 L (6.3-8.2) g/dL Albumin 2.5 L (3.5-5.0) g/dL 10/19/16 10/19/16 10/19/16 Range/Units 04:00 06:07 06:45 WBC (3.8-10.6) k/uL RBC (4.30-5.90) m/uL Hgb (13.0-17.5) gm/dL Hct (39.0-53.0) % RDW (11.5-15.5) % Neutrophils # (1.3-7.7) k/uL PT 12.1 H (9.0-12.0) sec INR 1.2 H (<1.2) APTT 21.2 L (22.0-30.0) sec Chloride (98-107) mmol/L BUN (9-20) mg/dL Glucose (74-99) mg/dL POC Glucose (mg/dL) 149 H 153 H (75-99) mg/dL Total Protein (6.3-8.2) g/dL Albumin (3.5-5.0) g/dL 10/19/16 10/19/16 10/19/16 Range/Units 07:55 09:27 10:12 WBC (3.8-10.6) k/uL RBC (4.30-5.90) m/uL Hgb (13.0-17.5) gm/dL Hct (39.0-53.0) % RDW (11.5-15.5) % Neutrophils # (1.3-7.7) k/uL PT (9.0-12.0) sec INR (<1.2) APTT (22.0-30.0) sec Chloride (98-107) mmol/L BUN (9-20) mg/dL Glucose (74-99) mg/dL POC Glucose (mg/dL) 154 H 162 H 170 H (75-99) mg/dL Total Protein (6.3-8.2) g/dL Albumin (3.5-5.0) g/dL 10/19/16 Range/Units 11:14 WBC (3.8-10.6) k/uL RBC (4.30-5.90) m/uL Hgb (13.0-17.5) gm/dL Hct (39.0-53.0) % RDW (11.5-15.5) % Neutrophils # (1.3-7.7) k/uL PT (9.0-12.0) sec INR (<1.2) APTT (22.0-30.0) sec Chloride (98-107) mmol/L BUN (9-20) mg/dL Glucose (74-99) mg/dL POC Glucose (mg/dL) 158 H (75-99) mg/dL Total Protein (6.3-8.2) g/dL Albumin (3.5-5.0) g/dL Microbiology - Last 24 Hours (Table) 10/15/16 04:02 Blood Culture - Preliminary Blood No Growth after 96 hours 10/15/16 04:10 Blood Culture - Preliminary Blood No Growth after 96 hours 10/13/16 20:20 Blood Culture - Preliminary Blood No Growth after 120 hours Assessment and Plan Plan: CAD status post CABG Perioperative CVA Continue current supportive care patient is status post tracheostomy will have a PEG done
[2016-10-19 12:15] LABS: Glucose,Whole Blood 144 mg/dL (75-99)
[2016-10-19 13:24] LABS: Glucose,Whole Blood 138 mg/dL (75-99)
[2016-10-19] MEDS: INSULIN REGULAR 100 UNIT in SODIUM CHLORIDE 0.9% 100 ML IV SCH (13:35)
--- NOTE | 2016-10-19 14:56 | P.PN ---
Subjective Principal diagnosis: Stroke This 50-year-old male continuing to be evaluated by the neurology service for stroke. On 10/11/2016 he had coronary artery bypass grafting. He was transferred to the ICU and left-sided weakness was noted. A CT showed small vessel ischemic disease. At the time of my evaluation he he continues to be intubated and sedated in the ICU. A repeat CT did show mild hypoattenuation in the right middle cerebral artery distribution and an old left caudate lacunar infarct. Since my last exam he has undergone tracheostomy and will be having a PEG tube placed today. Objective - Vital Signs Vital signs: Vital Signs Temp 99.9 F H 10/19/16 13:45 Pulse 82 10/19/16 14:00 Resp 20 10/19/16 14:00 BP 153/72 10/19/16 13:45 Pulse Ox 97 10/19/16 14:00 Intake & Output 10/18/16 10/19/16 10/19/16 18:59 06:59 18:59 Intake Total 910.733 888.293 237.036 Output Total 1087 870 475 Balance -176.267 18.293 -237.964 Weight 95.4 kg 94.2 kg Intake: IV 760.0 426.0 161.5 0.9 at KVO 40 160 30 0.9 at KVP 10 20 0.9 pressure bag 30 36 24 LR 70 Lactated Ringers 1,000 ml 130 10 @ 20 mls/hr IV .Q24H [facility] Rx#:[id number] Piperacillin-Tazobactam 3 50.0 .375 gm In Dextrose/Water 1 50ml.bag @ 12.5 mls/hr IVPB Q8H [facility] Rx#: [id number] Potassium Chloride 10 meq 400 In Water For Injection 1 100ml.bag @ 100 mls/hr IVPB Q1H [facility] Rx#: [id number] Sodium Ferric Gluconat- 100 Sucrose 125 mg In Sodium Chloride 0.9% 100 ml @ 100 mls/hr IVPB Q24H [facility] Rx#:[id number] zosyn 50.0 50.0 37.5 Intake, IV Titration 100.733 82.293 75.536 Amount Insulin Regular 100 unit 59.715 23.311 25.654 In Sodium Chloride 0.9% 100 ml @ Per Protocol IV .Q0M [facility] Rx#:[id number] Piperacillin-Tazobactam 3 12.5 .375 gm In Dextrose/Water 1 50ml.bag @ 12.5 mls/hr IVPB Q8H [facility] Rx#: [id number] Propofol 1,000 mg In 100 41.018 58.982 37.382 ml @ Titrate IV .Q0M [facility] Rx#:[id number] Oral 50 Tube Feeding 330 0 Other 50 Output: Urine 1085 870 475 Estimated Blood Loss 2 Other: Voiding Method Indwelling Catheter Indwelling Catheter Indwelling Catheter # Voids 1 ABP, PAP, CO, CI - Last Documented Arterial Blood Pressure 138/60 Pulmonary Artery Pressure 27/13 Cardiac Output 9.2 Cardiac Index 4.5 - Constitutional General appearance: Present: average body habitus - EENT Eyes: Absent: abnormal pupil, ptosis - Neck Neck: Present: normal ROM. Absent: rigidity - Respiratory Respiratory: negative: prolonged expiration, prolonged inspiration - Cardiovascular Rhythm: regular - Neurologic Neurologic Comment(s): Sedated in his ICU bed. Response to painful stimuli. Brainstem reflexes intact. No facial asymmetry seen. - Labs CBC & Chem 7: 10/19/16 04:00 10/19/16 04:00 Labs: Abnormal Lab Results - Last 24 Hours (Table) 10/18/16 10/18/16 10/18/16 Range/Units 15:11 16:06 18:38 WBC (3.8-10.6) k/uL RBC (4.30-5.90) m/uL Hgb (13.0-17.5) gm/dL Hct (39.0-53.0) % RDW (11.5-15.5) % Neutrophils # (1.3-7.7) k/uL PT (9.0-12.0) sec INR (<1.2) APTT (22.0-30.0) sec Chloride (98-107) mmol/L BUN (9-20) mg/dL Glucose (74-99) mg/dL POC Glucose (mg/dL) 133 H 112 H 162 H (75-99) mg/dL Total Protein (6.3-8.2) g/dL Albumin (3.5-5.0) g/dL 10/18/16 10/18/16 10/18/16 Range/Units 19:57 20:49 22:09 WBC (3.8-10.6) k/uL RBC (4.30-5.90) m/uL Hgb (13.0-17.5) gm/dL Hct (39.0-53.0) % RDW (11.5-15.5) % Neutrophils # (1.3-7.7) k/uL PT (9.0-12.0) sec INR (<1.2) APTT (22.0-30.0) sec Chloride (98-107) mmol/L BUN (9-20) mg/dL Glucose (74-99) mg/dL POC Glucose (mg/dL) 147 H 129 H 114 H (75-99) mg/dL Total Protein (6.3-8.2) g/dL Albumin (3.5-5.0) g/dL 10/18/16 10/18/16 10/19/16 Range/Units 22:53 23:56 00:59 WBC (3.8-10.6) k/uL RBC (4.30-5.90) m/uL Hgb (13.0-17.5) gm/dL Hct (39.0-53.0) % RDW (11.5-15.5) % Neutrophils # (1.3-7.7) k/uL PT (9.0-12.0) sec INR (<1.2) APTT (22.0-30.0) sec Chloride (98-107) mmol/L BUN (9-20) mg/dL Glucose (74-99) mg/dL POC Glucose (mg/dL) 133 H 156 H 134 H (75-99) mg/dL Total Protein (6.3-8.2) g/dL Albumin (3.5-5.0) g/dL 10/19/16 10/19/16 10/19/16 Range/Units 01:50 02:42 03:58 WBC (3.8-10.6) k/uL RBC (4.30-5.90) m/uL Hgb (13.0-17.5) gm/dL Hct (39.0-53.0) % RDW (11.5-15.5) % Neutrophils # (1.3-7.7) k/uL PT (9.0-12.0) sec INR (<1.2) APTT (22.0-30.0) sec Chloride (98-107) mmol/L BUN (9-20) mg/dL Glucose (74-99) mg/dL POC Glucose (mg/dL) 135 H 137 H 185 H (75-99) mg/dL Total Protein (6.3-8.2) g/dL Albumin (3.5-5.0) g/dL 10/19/16 10/19/16 10/19/16 Range/Units 04:00 04:00 04:00 WBC 12.1 H (3.8-10.6) k/uL RBC 2.71 L (4.30-5.90) m/uL Hgb 8.0 L (13.0-17.5) gm/dL Hct 23.9 L (39.0-53.0) % RDW 16.7 H (11.5-15.5) % Neutrophils # 9.5 H (1.3-7.7) k/uL PT 12.1 H (9.0-12.0) sec INR 1.2 H (<1.2) APTT 21.2 L (22.0-30.0) sec Chloride 112 H (98-107) mmol/L BUN 34 H (9-20) mg/dL Glucose 136 H (74-99) mg/dL POC Glucose (mg/dL) (75-99) mg/dL Total Protein 4.7 L (6.3-8.2) g/dL Albumin 2.5 L (3.5-5.0) g/dL 10/19/16 10/19/16 10/19/16 Range/Units 06:07 06:45 07:55 WBC (3.8-10.6) k/uL RBC (4.30-5.90) m/uL Hgb (13.0-17.5) gm/dL Hct (39.0-53.0) % RDW (11.5-15.5) % Neutrophils # (1.3-7.7) k/uL PT (9.0-12.0) sec INR (<1.2) APTT (22.0-30.0) sec Chloride (98-107) mmol/L BUN (9-20) mg/dL Glucose (74-99) mg/dL POC Glucose (mg/dL) 149 H 153 H 154 H (75-99) mg/dL Total Protein (6.3-8.2) g/dL Albumin (3.5-5.0) g/dL 10/19/16 10/19/16 10/19/16 Range/Units 09:27 10:12 11:14 WBC (3.8-10.6) k/uL RBC (4.30-5.90) m/uL Hgb (13.0-17.5) gm/dL Hct (39.0-53.0) % RDW (11.5-15.5) % Neutrophils # (1.3-7.7) k/uL PT (9.0-12.0) sec INR (<1.2) APTT (22.0-30.0) sec Chloride (98-107) mmol/L BUN (9-20) mg/dL Glucose (74-99) mg/dL POC Glucose (mg/dL) 162 H 170 H 158 H (75-99) mg/dL Total Protein (6.3-8.2) g/dL Albumin (3.5-5.0) g/dL 10/19/16 10/19/16 Range/Units 12:13 13:22 WBC (3.8-10.6) k/uL RBC (4.30-5.90) m/uL Hgb (13.0-17.5) gm/dL Hct (39.0-53.0) % RDW (11.5-15.5) % Neutrophils # (1.3-7.7) k/uL PT (9.0-12.0) sec INR (<1.2) APTT (22.0-30.0) sec Chloride (98-107) mmol/L BUN (9-20) mg/dL Glucose (74-99) mg/dL POC Glucose (mg/dL) 144 H 138 H (75-99) mg/dL Total Protein (6.3-8.2) g/dL Albumin (3.5-5.0) g/dL Microbiology - Last 24 Hours (Table) 10/15/16 04:02 Blood Culture - Preliminary Blood No Growth after 96 hours 10/15/16 04:10 Blood Culture - Preliminary Blood No Growth after 96 hours 10/13/16 20:20 Blood Culture - Preliminary Blood No Growth after 120 hours Assessment and Plan (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 He remains sedated in the ICU. He will continue rectal aspirin at 300 mg daily. Continue neurological checks. Continue supportive care. We will continue to follow and make further recommendations when we are able to do a more focused neurological exam. I have performed a history and physical on the above patient. I have reviewed the above note, and agree.
[2016-10-19 15:03] LABS: Glucose,Whole Blood 131 mg/dL (75-99)
[2016-10-19] MEDS: HYDROcodone/APAP 5-325MG 1 EACH TAB PO PRN (16:06)
[2016-10-19 16:23] LABS: Glucose,Whole Blood 124 mg/dL (75-99)
[2016-10-19 17:37] LABS: Glucose,Whole Blood 118 mg/dL (75-99)
[2016-10-19] MEDS ORDERED: MIDAZOLAM 2 MG/2 ML VIAL ONE (17:55)
[2016-10-19] MEDS ORDERED: fentaNYL (PF) 50 MCG/ML 2 ML AMP ONE (17:55)
[2016-10-19] MEDS ORDERED: PROPOFOL 10 MG/ML 20 ML VIAL IV ONE (17:55)
[2016-10-19] MEDS: SODIUM FERRIC GLUCONAT-SUCROSE 125 MG in SODIUM CHLORIDE 0.9% 100 ML IVPB SCH (18:15)
--- NOTE | 2016-10-19 18:21 | P.OP ---
Date of Procedure: 10/19/16 Preoperative Diagnosis: Malnutrition Postoperative Diagnosis: Malnutrition Procedure(s) Performed: PEG tube placement Implants: Anesthesia: MAC Surgeon: Сергей Wyatt Estimated Blood Loss (ml): 3 Pathology: none sent Condition: stable Disposition: PACU Indications for Procedure: Operative Findings: Description of Procedure: The patient's placed it is bed in supine position. He received IV sedation. The gastroscope placed oropharynx passed in the esophagus and stomach. Scope was placed through the pylorus. There is no evidence of gastrointestinal obstruction. The stomach was insufflated. After adequate insufflation the light reflux was seen on the anterior abdominal wall. The skin was cleaned Betadine. The skin anesthetized 1% local Xylocaine. A skin incision made with 11 blade. And then the needle was placed under direct visitation to the stomach. The needle was grasped with snare. The wire was then placed through the needle and then the wire was snared and brought out through the patient's mouth. The gastric tube was placed over top of the wire and brought down to the stomach. The PEG tube was secured at the 3 cm elizabeth with the one-piece bolster. Patient tolerated procedure well .
[2016-10-19 18:27] LABS: Glucose,Whole Blood 111 mg/dL (75-99)
[2016-10-19] MEDS: ASPIRIN 325 MG TAB PO SCH (18:28)
[2016-10-19] MEDS: CLOPIDOGREL 75 MG TAB PO SCH (18:28)
[2016-10-19 19:21] LABS: Glucose,Whole Blood 125 mg/dL (75-99)
[2016-10-19 20:40] LABS: Glucose,Whole Blood 113 mg/dL (75-99)
[2016-10-19] MEDS: hydrALAZINE HCL 20 MG/ML 1 ML VIAL IVP PRN (20:44)
[2016-10-19] MEDS: INSULIN GLARGINE 100 UNIT/ML 10 ML VIAL SQ SCH (20:45)
[2016-10-19] MEDS: SENNOSIDES-DOCUSATE SODIUM 1 EACH TAB PO SCH (20:46)
[2016-10-19 21:14] LABS: Glucose,Whole Blood 111 mg/dL (75-99)
[2016-10-19 22:12] LABS: Glucose,Whole Blood 129 mg/dL (75-99)
[2016-10-19 23:25] LABS: Glucose,Whole Blood 120 mg/dL (75-99)
[2016-10-20 00:07] LABS: Glucose,Whole Blood 124 mg/dL (75-99)
[2016-10-20] MEDS: HEPARIN SODIUM,PORCINE 5,000 UNIT/ML 1 ML VIAL SQ SCH ×3 (00:46→15:35)
[2016-10-20] MEDS: hydrALAZINE HCL 20 MG/ML 1 ML VIAL IVP PRN ×2 (00:46→04:00)
[2016-10-20 00:57] LABS: Glucose,Whole Blood 122 mg/dL (75-99)
[2016-10-20 02:02] LABS: Glucose,Whole Blood 122 mg/dL (75-99)
[2016-10-20 03:30] LABS: Glucose,Whole Blood 118 mg/dL (75-99)
[2016-10-20] MEDS: PIPERACILLIN-TAZOBACTAM 3.375 GM in DEXTROSE/WATER 1 50ML.BAG IVPB SCH ×3 (04:07→20:09)
[2016-10-20 04:16] LABS: Glucose,Whole Blood 120 mg/dL (75-99)
[2016-10-20 04:55] LABS: Anisocytosis Slight; Basophils # (A) 0.1 k/uL (0-0.2); Basophils % (A) 0 %; CHCM 32.9; Eosinophils # (A) 0.2 k/uL (0-0.7); Eosinophils % (A) 1 %; HCT 25.9 % (39.0-53.0); HDW 4.28; HGB 8.4 gm/dL (13.0-17.5); Hypochromasia Moderate; Luc # (Auto) 0.38; Luc % (Auto) 2; Lymphocytes % (A) 6 %; MCH 28.8 pg (25.0-35.0); MCHC 32.4 g/dL (31.0-37.0); MCV 88.9 fL (80.0-100.0); Mean Platelet Volume 7.2; Monocytes # (A) 0.8 k/uL (0-1.0); Monocytes % (A) 5 %; Neutrophils # (A) 14.1 k/uL (1.3-7.7); Neutrophils % (A) 85 %; Poikilocytosis Moderate; RBC 2.91 m/uL (4.30-5.90); RDW 16.8 % (11.5-15.5); WBC 16.7 k/uL (3.8-10.6); WBC (Perox) 16.92
[2016-10-20 06:17] LABS: Anion Gap 10 mmol/L; Carbon Dioxide 25 mmol/L (22-30); Chloride 110 mmol/L (98-107); Glucose 128 mg/dL (74-99); Potassium 3.6 mmol/L (3.5-5.1); Sodium 145 mmol/L (137-145)
[2016-10-20 06:18] LABS: ALT 54 U/L (21-72); AST 22 U/L (17-59); Alkaline Phosphatase 74 U/L (38-126); Blood Urea Nitrogen 27 mg/dL (9-20); Calcium 8.6 mg/dL (8.4-10.2); Magnesium 2.2 mg/dL (1.6-2.3); Non-African American GFR(MDRD) >60 (>60 ml/min/1.73 sqM); Phosphorous 3.6 mg/dL (2.5-4.5); Total Bilirubin 0.7 mg/dL (0.2-1.3); Total Protein 5.2 g/dL (6.3-8.2)
[2016-10-20 06:20] LABS: Glucose,Whole Blood 138 mg/dL (75-99)
[2016-10-20] MEDS ORDERED: Potassium Replacement Protocol 1 EACH MISC MISCELLANE PRN (06:22)
[2016-10-20] MEDS ORDERED: POTASSIUM CHLORIDE ORAL LIQUID 40 MEQ/30 ML CUP NG-TUBE SCH (06:59)
[2016-10-20 07:07] LABS: Glucose,Whole Blood 138 mg/dL (75-99)
[2016-10-20] MEDS: MORPHINE SULFATE 2 MG/ML SYRINGE IVP PRN (07:16)
--- NOTE | 2016-10-20 07:31 | XR ---
EXAMINATION TYPE: XR chest 1V portable DATE OF EXAM: 10/20/2016 COMPARISON: 10/19/2016 HISTORY: SOB, Follow Up FINDINGS: NG tube has been removed. Right-sided PICC line and tracheostomy tubes are in place. No change in bibasilar opacities. Stable appearance of the cardio-mediastinal structures at this time. Pleural effusion unchanged. IMPRESSION: 1. Stable portable chest. Clinical correlation and follow up until resolution is recommended.
[2016-10-20] MEDS: IPRATROPIUM-ALBUTEROL 3 ML NEB INHALATION SCH ×4 (07:43→20:12)
[2016-10-20] MEDS: ASPIRIN 325 MG TAB PO SCH (08:14)
[2016-10-20] MEDS: ATORVASTATIN 40 MG TAB PO SCH (08:14)
[2016-10-20] MEDS: CHLORHEXIDINE GLUCONATE 15 ML CUP MUCOUS MEM SCH ×2 (08:14→20:09)
[2016-10-20] MEDS: PANTOPRAZOLE 40 MG/10 ML VIAL IVP SCH (08:14)
[2016-10-20] MEDS: CLOPIDOGREL 75 MG TAB PO SCH (08:15)
[2016-10-20] MEDS: METOPROLOL TARTRATE 50 MG TAB PO SCH ×2 (08:20→20:10)
[2016-10-20] MEDS: DILTIAZEM ORAL 30 MG TAB PO SCH ×4 (09:00→21:00)
[2016-10-20 09:07] LABS: Glucose,Whole Blood 153 mg/dL (75-99)
--- NOTE | 2016-10-20 09:50 | P.PN ---
Subjective Interval history 10/11/16- patient is being seen examined and evaluated on the intensive care unit. Patient has postop day 1 after CABG 4 with cardiothoracic surgeon. Patient was successfully extubated approximately for 20 this morning. Currently the patient is resting up in bed on 6 L of supplemental oxygen. Patient appears somewhat lethargic. Currently he has a left chest tube as well as mediastinal chest tube. Currently he has been AV epicardial pacemaker connected to a generator with a VVI mode with backup rate of 60 BPM. He has a right radial art line, right IJ. Per the nursing staff he has an ineffective cough as well as an ineffective swallow, he had some difficulty with swallowing earlier they're going to reattempt a swallow evaluation again this afternoon. Patient does have some shortness of breath with exertion, is noted to have some lethargy. 10/12/16- see Dr. Ramírez notes 10/13/16- patient being seen examined and evaluated in the intensive care unit. The patient was reintubated yesterday, for increased secretions as well as hyperventilation. Currently the patient is on assist control mode with a respiratory rate of 22, tidal volume 400, FiO2 50% and 0 PEEP. Continues on propofol for sedation. Tube feeds were also initiated yesterday and the patient is tolerating these well. Patient does have a left-sided internal jugular triple-lumen catheter as well as a right arterial line. Patient continues to exhibit left-sided neglect and neurology is on consult for possible stroke. Chest x-ray from this morning was reviewed and shows stable lines and tubes, cardiomegaly, postsurgical changes of the chest and scattered subsegmental atelectasis. 10/14/16-10/17/[address] Olmos's notes as he was covering 10/18/16- See Dr. Ramírez's note 10/19/16- patient is being seen in evaluated and examined today on the intensive care unit. The patient did undergo a tracheostomy placement yesterday. Currently he has a #8 Shiley, is on mechanical ventilation via the trach with assist control mode with a respiratory rate of 18 tidal volume of 500, FiO2 of 40%. Agent is scheduled to go for a PEG tube today. He continues on propofol for sedation. Patient did have some weaning trial yesterday and was able to be maintained on CPAP mode for approximately 30 minutes. Patient will have another weaning trial today after PEG tube insertion. Urine output has been good. During the sedation holiday the patient is also noted to have some continued left-sided weakness/neglect. 10/20/16- patient is being seen in evaluated and examined today given the intensive care on rounds. Currently he has on mechanical ventilation via trach with assist control mode with a respiratory rate of 18, tidal volume of 500, FiO2 40% and 0 PEEP. The patient is off of sedation and will undergoing CPAP and trials. Patient did have his PEG tube placement yesterday. Chest x- ray this morning was reviewed and shows a stable portable chest pleural effusion is unchanged and there is no change in bibasilar opacities. Labs were reviewed WBC 16.7, hemoglobin 8.4, platelet 331, sodium 145, chloride 110, potassium 3.6, BUN 27, creatinine 0.81 magnesium 2.2. awaiting clearance from surgical to use PEG tube. Objective - Vital Signs Vital signs: Vital Signs Temp 99.5 F 10/20/16 04:00 Pulse 112 H 10/20/16 08:00 Resp 26 H 10/20/16 07:00 BP 147/69 10/20/16 07:00 Pulse Ox 94 L 10/20/16 07:00 Intake & Output 10/19/16 10/20/16 10/20/16 18:59 06:59 18:59 Intake Total 348.040 454.478 20 Output Total 735 1705 75 Balance -386.960 -1250.522 -55 Weight 90.5 kg Intake: IV 256.0 349 20 0.9 at KVO 60 120 10 0.9 pressure bag 36 9 LR 110 120 10 zosyn 50.0 100 Intake, IV Titration 92.040 105.478 Amount Insulin Regular 100 unit 42.158 20.188 In Sodium Chloride 0.9% 100 ml @ Per Protocol IV .Q0M [facility] Rx#:[id number] Piperacillin-Tazobactam 3 12.5 .375 gm In Dextrose/Water 1 50ml.bag @ 12.5 mls/hr IVPB Q8H [facility] Rx#: [id number] Propofol 1,000 mg In 100 37.382 85.290 ml @ Titrate IV .Q0M [facility] Rx#:[id number] Tube Feeding 0 Output: Urine 735 1705 75 Other: Voiding Method Indwelling Catheter Indwelling Catheter ABP, PAP, CO, CI - Last Documented Arterial Blood Pressure 182/73 Pulmonary Artery Pressure 27/13 Cardiac Output 9.2 Cardiac Index 4.5 - Exam GENERAL EXAM: On mechanical ventilation, sedation has been turned off HEAD: Normocephalic. EYES: Normal reaction of pupils, equal size. NOSE: Clear with pink turbinates. THROAT: No erythema or exudates. NECK: No masses, no JVD. #8 Shiley trach present CHEST: No chest wall deformity. The anterior chest wall incision with dressing clean dry and intact. LUNGS: Lungs are noted to be coarse throughout Bases diminished. CVS: S1 and S2 normal with no audible mumurs, regular rhythm. ABDOMEN: No hepatosplenomegaly, normal bowel sounds, no guarding or rigidity. PEG tube in place EXTREMITIES: trace edema noted, pedal pulses palpable. Left lower extremity site clean dry and intact, left radial harvest site clean dry and intact. SKIN: No rashes CENTRAL NERVOUS SYSTEM: On mechanical ventilation, withdraws from painful stimuli, during sedation holiday the patient is noted to have a grade 2 out of 5 upper extremity neglect right side remains 5 out of 5. Positive for left- sided Babinski - Labs CBC & Chem 7: 10/20/16 04:20 10/20/16 05:25 Labs: Abnormal Lab Results - Last 24 Hours (Table) 10/19/16 10/19/16 10/19/16 Range/Units 10:12 11:14 12:13 WBC (3.8-10.6) k/uL RBC (4.30-5.90) m/uL Hgb (13.0-17.5) gm/dL Hct (39.0-53.0) % RDW (11.5-15.5) % Neutrophils # (1.3-7.7) k/uL Chloride (98-107) mmol/L BUN (9-20) mg/dL Glucose (74-99) mg/dL POC Glucose (mg/dL) 170 H 158 H 144 H (75-99) mg/dL Total Protein (6.3-8.2) g/dL Albumin (3.5-5.0) g/dL 10/19/16 10/19/16 10/19/16 Range/Units 13:22 14:42 16:02 WBC (3.8-10.6) k/uL RBC (4.30-5.90) m/uL Hgb (13.0-17.5) gm/dL Hct (39.0-53.0) % RDW (11.5-15.5) % Neutrophils # (1.3-7.7) k/uL Chloride (98-107) mmol/L BUN (9-20) mg/dL Glucose (74-99) mg/dL POC Glucose (mg/dL) 138 H 131 H 124 H (75-99) mg/dL Total Protein (6.3-8.2) g/dL Albumin (3.5-5.0) g/dL 10/19/16 10/19/16 10/19/16 Range/Units 17:16 18:20 19:17 WBC (3.8-10.6) k/uL RBC (4.30-5.90) m/uL Hgb (13.0-17.5) gm/dL Hct (39.0-53.0) % RDW (11.5-15.5) % Neutrophils # (1.3-7.7) k/uL Chloride (98-107) mmol/L BUN (9-20) mg/dL Glucose (74-99) mg/dL POC Glucose (mg/dL) 118 H 111 H 125 H (75-99) mg/dL Total Protein (6.3-8.2) g/dL Albumin (3.5-5.0) g/dL 10/19/16 10/19/16 10/19/16 Range/Units 20:36 21:13 22:10 WBC (3.8-10.6) k/uL RBC (4.30-5.90) m/uL Hgb (13.0-17.5) gm/dL Hct (39.0-53.0) % RDW (11.5-15.5) % Neutrophils # (1.3-7.7) k/uL Chloride (98-107) mmol/L BUN (9-20) mg/dL Glucose (74-99) mg/dL POC Glucose (mg/dL) 113 H 111 H 129 H (75-99) mg/dL Total Protein (6.3-8.2) g/dL Albumin (3.5-5.0) g/dL 0910/20/16 10/20/16 Range/Units 23:19 00:05 00:55 WBC (3.8-10.6) k/uL RBC (4.30-5.90) m/uL Hgb (13.0-17.5) gm/dL Hct (39.0-53.0) % RDW (11.5-15.5) % Neutrophils # (1.3-7.7) k/uL Chloride (98-107) mmol/L BUN (9-20) mg/dL Glucose (74-99) mg/dL POC Glucose (mg/dL) 120 H 124 H 122 H (75-99) mg/dL Total Protein (6.3-8.2) g/dL Albumin (3.5-5.0) g/dL 10/20/16 10/20/16 10/20/16 Range/Units 02:01 03:09 04:15 WBC (3.8-10.6) k/uL RBC (4.30-5.90) m/uL Hgb (13.0-17.5) gm/dL Hct (39.0-53.0) % RDW (11.5-15.5) % Neutrophils # (1.3-7.7) k/uL Chloride (98-107) mmol/L BUN (9-20) mg/dL Glucose (74-99) mg/dL POC Glucose (mg/dL) 122 H 118 H 120 H (75-99) mg/dL Total Protein (6.3-8.2) g/dL Albumin (3.5-5.0) g/dL 10/20/16 10/20/16 10/20/16 Range/Units 04:20 05:25 06:16 WBC 16.7 H (3.8-10.6) k/uL RBC 2.91 L (4.30-5.90) m/uL Hgb 8.4 L (13.0-17.5) gm/dL Hct 25.9 L (39.0-53.0) % RDW 16.8 H (11.5-15.5) % Neutrophils # 14.1 H (1.3-7.7) k/uL Chloride 110 H (98-107) mmol/L BUN 27 H (9-20) mg/dL Glucose 128 H (74-99) mg/dL POC Glucose (mg/dL) 138 H (75-99) mg/dL Total Protein 5.2 L (6.3-8.2) g/dL Albumin 2.8 L (3.5-5.0) g/dL 10/20/16 10/20/16 Range/Units 07:05 09:06 WBC (3.8-10.6) k/uL RBC (4.30-5.90) m/uL Hgb (13.0-17.5) gm/dL Hct (39.0-53.0) % RDW (11.5-15.5) % Neutrophils # (1.3-7.7) k/uL Chloride (98-107) mmol/L BUN (9-20) mg/dL Glucose (74-99) mg/dL POC Glucose (mg/dL) 138 H 153 H (75-99) mg/dL Total Protein (6.3-8.2) g/dL Albumin (3.5-5.0) g/dL Microbiology - Last 24 Hours (Table) 10/15/16 04:02 Blood Culture - Preliminary Blood No Growth after 120 hours 10/15/16 04:10 Blood Culture - Preliminary Blood No Growth after 120 hours 10/13/16 20:20 Blood Culture - Final Blood No Growth after 144 hours Assessment and Plan Plan: Assessment Acute hypoxic respiratory failure, small postoperative bilateral pleural effusions Probable CVA with left-sided hemiparesis, cannot be excluded, neurology on consult. 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 Patient is post op day 10 after CABG 4. Patient is postop day 2 of tracheostomy placement. Postop day 1 of PEG tube placement. Patient should remain on mechanical ventilation, with CPAP and trials. Further recommendation depending on how patient does with the parameters. Labs and reports have been reviewed. Medications have been reviewed and will be continued as ordered. Continue with pulmonary hygiene, and supportive care. . Supplemental oxygen to maintain oxygen saturations of 92% or better. Continue nebulizer treatments. GI and DVT prophylaxis. We will continue to monitor labs/results and adjust treatment as necessary. Further recommendations pending. I performed an examination of the patient and discussed their management with the nurse practitioner. I have reviewed the nurse practitioner's note and agree with the documented findings and plan of care.
--- NOTE | 2016-10-20 10:28 | P.PN ---
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 Family history of coronary artery disease. POD #10 urgent coronary artery bypass graft surgery 4 vessels with the left internal mammary artery to the left anterior descending artery, left radial artery to the ramus artery, reverse saphenous vein graft to the diagonal artery , reverse saphenous vein graft to posterior descending artery, endoscopic vein harvest left greater saphenous vein, endoscopic harvest of left radial artery, intraoperative transesophageal echocardiogram and epi-aortic scanning. Postoperative re-intubation for airway protection, prolonged mechanical ventilation. Postoperative ischemic stroke, a potential outcome of surgery. Leukocytosis, unknown source as sputum culture, blood culture, urine culture all negative. POD #2 placement of tracheostomy. POD #1 placement of percutaneous endoscopic gastrostomy tube. Patient's currently laying in the bed in no acute distress. Remains sedated on mechanical ventilation. Patient without significant neurological changes in the last 24 hours. PEG tube placed yesterday. Objective - Vital Signs Vital signs: Vital Signs Temp 99.5 F 10/20/16 04:00 Pulse 112 H 10/20/16 08:00 Resp 26 H 10/20/16 07:00 BP 147/69 10/20/16 07:00 Pulse Ox 94 L 10/20/16 07:00 Intake & Output 10/19/1610/20/17 10/20/16 18:59 06:59 18:59 Intake Total 348.040 454.478 29.408 Output Total 735 1705 75 Balance -386.960 -1250.522 -45.592 Weight 90.5 kg Intake: IV 256.0 349 20 0.9 at KVO 60 120 10 0.9 pressure bag 36 9 LR 110 120 10 zosyn 50.0 100 Intake, IV Titration 92.040 105.478 9.408 Amount Insulin Regular 100 unit 42.158 20.188 9.408 In Sodium Chloride 0.9% 100 ml @ Per Protocol IV .Q0M [facility] Rx#:[id number] Piperacillin-Tazobactam 3 12.5 .375 gm In Dextrose/Water 1 50ml.bag @ 12.5 mls/hr IVPB Q8H [facility] Rx#: [id number] Propofol 1,000 mg In 100 37.382 85.290 ml @ Titrate IV .Q0M [facility] Rx#:[id number] Tube Feeding 0 Output: Urine 735 1705 75 Other: Voiding Method Indwelling Catheter Indwelling Catheter ABP, PAP, CO, CI - Last Documented Arterial Blood Pressure 182/73 Pulmonary Artery Pressure 27/13 Cardiac Output 9.2 Cardiac Index 4.5 - Constitutional General appearance: Present: no acute distress - Respiratory Details: Lungs sounds diminished with coarse breath sounds in the bases. Respirations even, nonlabored on mechanical ventilation. Current ventilator settings assist control mode, FiO2 40%, tidal volume 500, respiratory rate 18, PEEP 0. #8 Shiley trach present. - Cardiovascular Details: S1, S2 present. Regular rate and rhythm, sinus rhythm to sinus tach on telemetry. Palpable pulses bilaterally. Trace generalized edema present. Right radial arterial line, right brachial PICC line present. Teds/SCDs present. - Gastrointestinal Gastrointestinal Comment(s): Abdomen soft, nontender, nondistended. Active bowel sounds 4 quadrants. PEG tube placed yesterday. Tube feedings to be restarted. - Genitourinary Genitourinary Comment(s): Rosario present draining clear, yellow urine. Output 125-325 mL/h - Integumentary Integumentary Comment(s): Anterior chest incision well approximated encourage her intact dressing. Left lower extremity EVH site well approximated. Left radial artery site well approximated with Dermabond dressing. - Neurologic Neurologic Comment(s): With stressed to painful stimuli times all 4 quadrants. Left upgoing Babinski present. - Allied health notes Allied health notes reviewed: nursing - Labs CBC & Chem 7: 10/20/16 04:20 10/20/16 05:25 Labs: Abnormal Lab Results - Last 24 Hours (Table) 10/19/16 10/19/16 10/19/16 Range/Units 11:14 12:13 13:22 WBC (3.8-10.6) k/uL RBC (4.30-5.90) m/uL Hgb (13.0-17.5) gm/dL Hct (39.0-53.0) % RDW (11.5-15.5) % Neutrophils # (1.3-7.7) k/uL Chloride (98-107) mmol/L BUN (9-20) mg/dL Glucose (74-99) mg/dL POC Glucose (mg/dL) 158 H 144 H 138 H (75-99) mg/dL Total Protein (6.3-8.2) g/dL Albumin (3.5-5.0) g/dL 10/19/16 10/19/16 10/19/16 Range/Units 14:42 16:02 17:16 WBC (3.8-10.6) k/uL RBC (4.30-5.90) m/uL Hgb (13.0-17.5) gm/dL Hct (39.0-53.0) % RDW (11.5-15.5) % Neutrophils # (1.3-7.7) k/uL Chloride (98-107) mmol/L BUN (9-20) mg/dL Glucose (74-99) mg/dL POC Glucose (mg/dL) 131 H 124 H 118 H (75-99) mg/dL Total Protein (6.3-8.2) g/dL Albumin (3.5-5.0) g/dL 10/19/16 10/19/16 10/19/16 Range/Units 18:20 19:17 20:36 WBC (3.8-10.6) k/uL RBC (4.30-5.90) m/uL Hgb (13.0-17.5) gm/dL Hct (39.0-53.0) % RDW (11.5-15.5) % Neutrophils # (1.3-7.7) k/uL Chloride (98-107) mmol/L BUN (9-20) mg/dL Glucose (74-99) mg/dL POC Glucose (mg/dL) 111 H 125 H 113 H (75-99) mg/dL Total Protein (6.3-8.2) g/dL Albumin (3.5-5.0) g/dL 10/19/16 10/19/16 10/19/16 Range/Units 21:13 22:10 23:19 WBC (3.8-10.6) k/uL RBC (4.30-5.90) m/uL Hgb (13.0-17.5) gm/dL Hct (39.0-53.0) % RDW (11.5-15.5) % Neutrophils # (1.3-7.7) k/uL Chloride (98-107) mmol/L BUN (9-20) mg/dL Glucose (74-99) mg/dL POC Glucose (mg/dL) 111 H 129 H 120 H (75-99) mg/dL Total Protein (6.3-8.2) g/dL Albumin (3.5-5.0) g/dL 10/20/16 10/20/16 10/20/16 Range/Units 00:05 00:55 02:01 WBC (3.8-10.6) k/uL RBC (4.30-5.90) m/uL Hgb (13.0-17.5) gm/dL Hct (39.0-53.0) % RDW (11.5-15.5) % Neutrophils # (1.3-7.7) k/uL Chloride (98-107) mmol/L BUN (9-20) mg/dL Glucose (74-99) mg/dL POC Glucose (mg/dL) 124 H 122 H 122 H (75-99) mg/dL Total Protein (6.3-8.2) g/dL Albumin (3.5-5.0) g/dL 10/20/16 10/20/16 10/20/16 Range/Units 03:09 04:15 04:20 WBC 16.7 H (3.8-10.6) k/uL RBC 2.91 L (4.30-5.90) m/uL Hgb 8.4 L (13.0-17.5) gm/dL Hct 25.9 L (39.0-53.0) % RDW 16.8 H (11.5-15.5) % Neutrophils # 14.1 H (1.3-7.7) k/uL Chloride (98-107) mmol/L BUN (9-20) mg/dL Glucose (74-99) mg/dL POC Glucose (mg/dL) 118 H 120 H (75-99) mg/dL Total Protein (6.3-8.2) g/dL Albumin (3.5-5.0) g/dL 10/20/16 10/20/16 10/20/16 Range/Units 05:25 06:16 07:05 WBC (3.8-10.6) k/uL RBC (4.30-5.90) m/uL Hgb (13.0-17.5) gm/dL Hct (39.0-53.0) % RDW (11.5-15.5) % Neutrophils # (1.3-7.7) k/uL Chloride 110 H (98-107) mmol/L BUN 27 H (9-20) mg/dL Glucose 128 H (74-99) mg/dL POC Glucose (mg/dL) 138 H 138 H (75-99) mg/dL Total Protein 5.2 L (6.3-8.2) g/dL Albumin 2.8 L (3.5-5.0) g/dL 10/20/16 Range/Units 09:06 WBC (3.8-10.6) k/uL RBC (4.30-5.90) m/uL Hgb (13.0-17.5) gm/dL Hct (39.0-53.0) % RDW (11.5-15.5) % Neutrophils # (1.3-7.7) k/uL Chloride (98-107) mmol/L BUN (9-20) mg/dL Glucose (74-99) mg/dL POC Glucose (mg/dL) 153 H (75-99) mg/dL Total Protein (6.3-8.2) g/dL Albumin (3.5-5.0) g/dL Microbiology - Last 24 Hours (Table) 10/15/16 04:02 Blood Culture - Preliminary Blood No Growth after 120 hours 10/15/16 04:10 Blood Culture - Preliminary Blood No Growth after 120 hours 10/13/16 20:20 Blood Culture - Final Blood No Growth after 144 hours - Imaging and Cardiology Chest x-ray: report reviewed, image reviewed Assessment and Plan (1) Tobacco dependence in remission Status: Acute (2) Recovering alcoholic in remission Status: Acute (3) Drug addiction in remission Status: Acute (4) Bipolar 1 disorder Status: Acute (5) CHF NYHA class III (symptoms with mildly strenuous activities) Status: Acute (6) COPD (chronic obstructive pulmonary disease) Status: Chronic (7) Coronary artery disease Status: Chronic (8) Hypertension Status: Chronic (9) Non-STEMI (non-ST elevated myocardial infarction) Status: Acute (10) Uncontrolled type 2 diabetes mellitus Status: Acute (11) Tracheostomy in place Status: Acute Plan: 1. Continue aspirin, statin, Plavix, heparin subcu, beta caleb. Will maximize beta caleb therapy as tolerated. 2. Continue oral Cardizem for radial artery spasm prevention. 3. Ventilator management per pulmonary services. Wean O2 as tolerated. Daily CPAP trials to exercise lungs, diaphragm. 4. Antibiotic management per pulmonology services. Cultures negative. 5. Tube feeding to be restarted 3 PEG tube today. 6. Insulin management per primary care service. 7. GI/DVT prophylaxis. 8. Will monitor daily labs, x-rays. 9. Keep Rosario catheter for strict accurate I and O's. Rosario changed yesterday 10. Discharge planning in progress. [facility] if insurance authorization is approved.
--- NOTE | 2016-10-20 12:00 | P.PN ---
Subjective Principal diagnosis: CAD status post CABG Patient had tracheostomy yesterday and still sedated he is going to have a PEG tube done. Remains in sinus rhythm hemodynamically stable, no change in his neurological status Patient is status post PEG. Off sedation but unresponsive. Has dense left- sided hemiplegia. Has had labile blood pressures his beta caleb dose had been increased Objective - Vital Signs Vital signs: Vital Signs Temp 99.5 F 10/20/16 04:00 Pulse 88 10/20/16 11:45 Resp 26 H 10/20/16 07:00 BP 147/69 10/20/16 07:00 Pulse Ox 94 L 10/20/16 07:00 Intake & Output 10/19/16 10/20/16 10/20/16 18:59 06:59 18:59 Intake Total 348.040 454.478 29.408 Output Total 735 1705 75 Balance -386.960 -1250.522 -45.592 Weight 90.5 kg Intake: IV 256.0 349 20 0.9 at KVO 60 120 10 0.9 pressure bag 36 9 LR 110 120 10 zosyn 50.0 100 Intake, IV Titration 92.040 105.478 9.408 Amount Insulin Regular 100 unit 42.158 20.188 9.408 In Sodium Chloride 0.9% 100 ml @ Per Protocol IV .Q0M [facility] Rx#:[id number] Piperacillin-Tazobactam 3 12.5 .375 gm In Dextrose/Water 1 50ml.bag @ 12.5 mls/hr IVPB Q8H [facility] Rx#: [id number] Propofol 1,000 mg In 100 37.382 85.290 ml @ Titrate IV .Q0M [facility] Rx#:[id number] Tube Feeding 0 Output: Urine 735 1705 75 Other: Voiding Method Indwelling Catheter Indwelling Catheter ABP, PAP, CO, CI - Last Documented Arterial Blood Pressure 182/73 Pulmonary Artery Pressure 27/13 Cardiac Output 9.2 Cardiac Index 4.5 - Exam Patient is status post trach and PEG unresponsive has dense left-sided hemiplegia vital signs are stable chest exam reveals diminished air entry bilaterally heart exam reveals first and second heart sounds no gallop abdomen is soft exam extremities did not reveal any edema - Labs CBC & Chem 7: 10/20/16 04:20 10/20/16 05:25 Labs: Abnormal Lab Results - Last 24 Hours (Table) 10/19/16 10/19/16 10/19/16 Range/Units 12:13 13:22 14:42 WBC (3.8-10.6) k/uL RBC (4.30-5.90) m/uL Hgb (13.0-17.5) gm/dL Hct (39.0-53.0) % RDW (11.5-15.5) % Neutrophils # (1.3-7.7) k/uL Chloride (98-107) mmol/L BUN (9-20) mg/dL Glucose (74-99) mg/dL POC Glucose (mg/dL) 144 H 138 H 131 H (75-99) mg/dL Total Protein (6.3-8.2) g/dL Albumin (3.5-5.0) g/dL 10/19/16 10/19/16 10/19/16 Range/Units 16:02 17:16 18:20 WBC (3.8-10.6) k/uL RBC (4.30-5.90) m/uL Hgb (13.0-17.5) gm/dL Hct (39.0-53.0) % RDW (11.5-15.5) % Neutrophils # (1.3-7.7) k/uL Chloride (98-107) mmol/L BUN (9-20) mg/dL Glucose (74-99) mg/dL POC Glucose (mg/dL) 124 H 118 H 111 H (75-99) mg/dL Total Protein (6.3-8.2) g/dL Albumin (3.5-5.0) g/dL 10/19/16 10/19/16 10/19/16 Range/Units 19:17 20:36 21:13 WBC (3.8-10.6) k/uL RBC (4.30-5.90) m/uL Hgb (13.0-17.5) gm/dL Hct (39.0-53.0) % RDW (11.5-15.5) % Neutrophils # (1.3-7.7) k/uL Chloride (98-107) mmol/L BUN (9-20) mg/dL Glucose (74-99) mg/dL POC Glucose (mg/dL) 125 H 113 H 111 H (75-99) mg/dL Total Protein (6.3-8.2) g/dL Albumin (3.5-5.0) g/dL 10/19/16 10/19/16 10/20/16 Range/Units 22:10 23:19 00:05 WBC (3.8-10.6) k/uL RBC (4.30-5.90) m/uL Hgb (13.0-17.5) gm/dL Hct (39.0-53.0) % RDW (11.5-15.5) % Neutrophils # (1.3-7.7) k/uL Chloride (98-107) mmol/L BUN (9-20) mg/dL Glucose (74-99) mg/dL POC Glucose (mg/dL) 129 H 120 H 124 H (75-99) mg/dL Total Protein (6.3-8.2) g/dL Albumin (3.5-5.0) g/dL 10/20/16 10/20/16 10/20/16 Range/Units 00:55 02:01 03:09 WBC (3.8-10.6) k/uL RBC (4.30-5.90) m/uL Hgb (13.0-17.5) gm/dL Hct (39.0-53.0) % RDW (11.5-15.5) % Neutrophils # (1.3-7.7) k/uL Chloride (98-107) mmol/L BUN (9-20) mg/dL Glucose (74-99) mg/dL POC Glucose (mg/dL) 122 H 122 H 118 H (75-99) mg/dL Total Protein (6.3-8.2) g/dL Albumin (3.5-5.0) g/dL 10/20/16 10/20/16 10/20/16 Range/Units 04:15 04:20 05:25 WBC 16.7 H (3.8-10.6) k/uL RBC 2.91 L (4.30-5.90) m/uL Hgb 8.4 L (13.0-17.5) gm/dL Hct 25.9 L (39.0-53.0) % RDW 16.8 H (11.5-15.5) % Neutrophils # 14.1 H (1.3-7.7) k/uL Chloride 110 H (98-107) mmol/L BUN 27 H (9-20) mg/dL Glucose 128 H (74-99) mg/dL POC Glucose (mg/dL) 120 H (75-99) mg/dL Total Protein 5.2 L (6.3-8.2) g/dL Albumin 2.8 L (3.5-5.0) g/dL 10/20/16 10/20/16 10/20/16 Range/Units 06:16 07:05 09:06 WBC (3.8-10.6) k/uL RBC (4.30-5.90) m/uL Hgb (13.0-17.5) gm/dL Hct (39.0-53.0) % RDW (11.5-15.5) % Neutrophils # (1.3-7.7) k/uL Chloride (98-107) mmol/L BUN (9-20) mg/dL Glucose (74-99) mg/dL POC Glucose (mg/dL) 138 H 138 H 153 H (75-99) mg/dL Total Protein (6.3-8.2) g/dL Albumin (3.5-5.0) g/dL Microbiology - Last 24 Hours (Table) 10/15/16 04:02 Blood Culture - Preliminary Blood No Growth after 120 hours 10/15/16 04:10 Blood Culture - Preliminary Blood No Growth after 120 hours 10/13/16 20:20 Blood Culture - Final Blood No Growth after 144 hours Assessment and Plan Plan: CAD status post CABG Perioperative cva Hypertension I reviewed his medications will continue what he is on
[2016-10-20 12:05] LABS: Glucose,Whole Blood 145 mg/dL (75-99)
[2016-10-20 14:15] LABS: Glucose,Whole Blood 152 mg/dL (75-99)
--- NOTE | 2016-10-20 14:25 | P.PN ---
Progress Note - Text 50-year-old male being seen in the intensive care unit sedated on vent support. Patients being seen by surgical service in a follow-up visit after PEG tube placement done on October 19 for nutritional support was requested by the attending PEG tube site no redness noted around the site. Okay to proceed with using the PEG tube to initiate tube feeds for nutritional support. No further surgical recommendations at this time will be eval on an as-needed basis The above impression and plan of care have been discussed and directed by signing physician. Whitney Howell nurse practitioner acting as scribe for signing physician.
--- NOTE | 2016-10-20 15:24 | P.PN ---
Subjective Principal diagnosis: Stroke This 50-year-old male continuing to be evaluated by the neurology service for stroke. On 10/11/2016 he had coronary artery bypass grafting. He was transferred to the ICU and left-sided weakness was noted. A CT showed small vessel ischemic disease. At the time of my evaluation he he continues to be intubated and sedated in the ICU. A repeat CT did show mild hypoattenuation in the right middle cerebral artery distribution and an old left caudate lacunar infarct. Since my last exam he has undergone tracheostomy and a PEG tube placed today. Objective - Vital Signs Vital signs: Vital Signs Temp 99.4 F 10/20/16 12:00 Pulse 80 10/20/16 15:00 Resp 21 10/20/16 15:00 BP 133/66 10/20/16 15:00 Pulse Ox 97 10/20/16 15:00 Intake & Output 10/19/16 10/20/16 10/20/16 18:59 06:59 18:59 Intake Total 348.040 454.478 447.235 Output Total 735 1705 745 Balance -386.960 -1250.522 -297.765 Weight 90.5 kg 90.5 kg Intake: IV 256.0 349 160 0.9 at KVO 60 120 10 0.9 pressure bag 36 9 LR 110 120 150 zosyn 50.0 100 Intake, IV Titration 92.040 105.478 47.235 Amount Insulin Regular 100 unit 42.158 20.188 22.235 In Sodium Chloride 0.9% 100 ml @ Per Protocol IV .Q0M [facility] Rx#:[id number] Piperacillin-Tazobactam 3 12.5 25.0 .375 gm In Dextrose/Water 1 50ml.bag @ 12.5 mls/hr IVPB Q8H [facility] Rx#: [id number] Propofol 1,000 mg In 100 37.382 85.290 ml @ Titrate IV .Q0M [facility] Rx#:[id number] Tube Feeding 0 0 Other 240 Output: Urine 735 1705 745 Other: Voiding Method Indwelling Catheter Indwelling Catheter Indwelling Catheter ABP, PAP, CO, CI - Last Documented Arterial Blood Pressure 111/102 Pulmonary Artery Pressure 27/13 Cardiac Output 9.2 Cardiac Index 4.5 - Constitutional General appearance: Present: average body habitus - EENT Eyes: Present: PERRLA. Absent: abnormal pupil, ptosis - Neck Neck: Present: normal ROM. Absent: rigidity - Respiratory Respiratory: negative: prolonged expiration, prolonged inspiration - Cardiovascular Rhythm: regular - Gastrointestinal General gastrointestinal: Absent: distended, tenderness - Neurologic Neurologic Comment(s): Remains sedated in the ICU. Spontaneously moving right lower extremity. Response to painful stimuli on the right side. Abnormal Babinski on the left. No spontaneous movement on the left. Brainstem reflexes remain intact. - Labs CBC & Chem 7: 10/20/16 04:20 10/20/16 05:25 Labs: Abnormal Lab Results - Last 24 Hours (Table) 10/19/16 10/19/16 10/19/16 Range/Units 16:02 17:16 18:20 WBC (3.8-10.6) k/uL RBC (4.30-5.90) m/uL Hgb (13.0-17.5) gm/dL Hct (39.0-53.0) % RDW (11.5-15.5) % Neutrophils # (1.3-7.7) k/uL Chloride (98-107) mmol/L BUN (9-20) mg/dL Glucose (74-99) mg/dL POC Glucose (mg/dL) 124 H 118 H 111 H (75-99) mg/dL Total Protein (6.3-8.2) g/dL Albumin (3.5-5.0) g/dL 10/19/16 10/19/16 10/19/16 Range/Units 19:17 20:36 21:13 WBC (3.8-10.6) k/uL RBC (4.30-5.90) m/uL Hgb (13.0-17.5) gm/dL Hct (39.0-53.0) % RDW (11.5-15.5) % Neutrophils # (1.3-7.7) k/uL Chloride (98-107) mmol/L BUN (9-20) mg/dL Glucose (74-99) mg/dL POC Glucose (mg/dL) 125 H 113 H 111 H (75-99) mg/dL Total Protein (6.3-8.2) g/dL Albumin (3.5-5.0) g/dL 09/07/3010/19/16 10/20/16 Range/Units 22:10 23:19 00:05 WBC (3.8-10.6) k/uL RBC (4.30-5.90) m/uL Hgb (13.0-17.5) gm/dL Hct (39.0-53.0) % RDW (11.5-15.5) % Neutrophils # (1.3-7.7) k/uL Chloride (98-107) mmol/L BUN (9-20) mg/dL Glucose (74-99) mg/dL POC Glucose (mg/dL) 129 H 120 H 124 H (75-99) mg/dL Total Protein (6.3-8.2) g/dL Albumin (3.5-5.0) g/dL 10/20/16 10/20/16 10/20/16 Range/Units 00:55 02:01 03:09 WBC (3.8-10.6) k/uL RBC (4.30-5.90) m/uL Hgb (13.0-17.5) gm/dL Hct (39.0-53.0) % RDW (11.5-15.5) % Neutrophils # (1.3-7.7) k/uL Chloride (98-107) mmol/L BUN (9-20) mg/dL Glucose (74-99) mg/dL POC Glucose (mg/dL) 122 H 122 H 118 H (75-99) mg/dL Total Protein (6.3-8.2) g/dL Albumin (3.5-5.0) g/dL 10/20/16 10/20/16 10/20/16 Range/Units 04:15 04:20 05:25 WBC 16.7 H (3.8-10.6) k/uL RBC 2.91 L (4.30-5.90) m/uL Hgb 8.4 L (13.0-17.5) gm/dL Hct 25.9 L (39.0-53.0) % RDW 16.8 H (11.5-15.5) % Neutrophils # 14.1 H (1.3-7.7) k/uL Chloride 110 H (98-107) mmol/L BUN 27 H (9-20) mg/dL Glucose 128 H (74-99) mg/dL POC Glucose (mg/dL) 120 H (75-99) mg/dL Total Protein 5.2 L (6.3-8.2) g/dL Albumin 2.8 L (3.5-5.0) g/dL 10/20/16 10/20/16 10/20/16 Range/Units 06:16 07:05 09:06 WBC (3.8-10.6) k/uL RBC (4.30-5.90) m/uL Hgb (13.0-17.5) gm/dL Hct (39.0-53.0) % RDW (11.5-15.5) % Neutrophils # (1.3-7.7) k/uL Chloride (98-107) mmol/L BUN (9-20) mg/dL Glucose (74-99) mg/dL POC Glucose (mg/dL) 138 H 138 H 153 H (75-99) mg/dL Total Protein (6.3-8.2) g/dL Albumin (3.5-5.0) g/dL 10/20/16 10/20/16 Range/Units 12:03 14:14 WBC (3.8-10.6) k/uL RBC (4.30-5.90) m/uL Hgb (13.0-17.5) gm/dL Hct (39.0-53.0) % RDW (11.5-15.5) % Neutrophils # (1.3-7.7) k/uL Chloride (98-107) mmol/L BUN (9-20) mg/dL Glucose (74-99) mg/dL POC Glucose (mg/dL) 145 H 152 H (75-99) mg/dL Total Protein (6.3-8.2) g/dL Albumin (3.5-5.0) g/dL Microbiology - Last 24 Hours (Table) 10/15/16 04:02 Blood Culture - Preliminary Blood No Growth after 120 hours 10/15/16 04:10 Blood Culture - Preliminary Blood No Growth after 120 hours 10/13/16 20:20 Blood Culture - Final Blood No Growth after 144 hours Assessment and Plan (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 He remains sedated in the ICU. He will continue rectal aspirin at 300 mg daily. Continue neurological checks. Continue supportive care. A cast and PEG tube is in place. And planning is being made for transfer to an extended care facility. At this point no further neurological workup is warranted. We may be contacted on as-needed basis for further neurological concerns. I have performed a history and physical on the above patient. I have reviewed the above note, and agree.
[2016-10-20] MEDS: LACTATED RINGERS 1,000 ML IV SCH (15:34)
[2016-10-20 17:07] LABS: Glucose,Whole Blood 141 mg/dL (75-99)
[2016-10-20] MEDS: SODIUM FERRIC GLUCONAT-SUCROSE 125 MG in SODIUM CHLORIDE 0.9% 100 ML IVPB SCH (17:53)
[2016-10-20 18:03] LABS: Glucose,Whole Blood 142 mg/dL (75-99)
[2016-10-20 19:22] LABS: Glucose,Whole Blood 148 mg/dL (75-99)
[2016-10-20] MEDS: INSULIN GLARGINE 100 UNIT/ML 10 ML VIAL SQ SCH (20:09)
[2016-10-20] MEDS: SENNOSIDES-DOCUSATE SODIUM 1 EACH TAB PO SCH (20:10)
[2016-10-20] MEDS ORDERED: ACETAMINOPHEN TAB 325 MG TAB PO PRN (20:49)
[2016-10-20 20:56] LABS: Glucose,Whole Blood 134 mg/dL (75-99)
[2016-10-20 22:59] LABS: Glucose,Whole Blood 142 mg/dL (75-99)
[2016-10-21 00:37] LABS: Glucose,Whole Blood 138 mg/dL (75-99)
[2016-10-21] MEDS: HEPARIN SODIUM,PORCINE 5,000 UNIT/ML 1 ML VIAL SQ SCH ×4 (00:39→23:19)
[2016-10-21 01:00] LABS: Glucose,Whole Blood 135 mg/dL (75-99)
[2016-10-21 01:14] LABS: Glucose,Whole Blood 143 mg/dL (75-99)
[2016-10-21 02:08] LABS: Glucose,Whole Blood 158 mg/dL (75-99)
[2016-10-21 03:06] LABS: Glucose,Whole Blood 140 mg/dL (75-99)
[2016-10-21 04:34] LABS: Glucose,Whole Blood 136 mg/dL (75-99)
[2016-10-21] MEDS: INSULIN REGULAR 100 UNIT in SODIUM CHLORIDE 0.9% 100 ML IV SCH (04:38)
[2016-10-21] MEDS: PIPERACILLIN-TAZOBACTAM 3.375 GM in DEXTROSE/WATER 1 50ML.BAG IVPB SCH ×3 (04:38→20:24)
[2016-10-21 05:07] LABS: Anisocytosis Slight; Basophils % (A) 0 %; CH 30.4; CHCM 34.1; Eosinophils # (A) 0.1 k/uL (0-0.7); Eosinophils % (A) 0 %; HCT 25.4 % (39.0-53.0); HDW 4.47; HGB 8.4 gm/dL (13.0-17.5); Hypochromasia Slight; Luc # (Auto) 0.33; Luc % (Auto) 2; Lymphocytes % (A) 7 %; MCH 29.7 pg (25.0-35.0); MCV 90.1 fL (80.0-100.0); Mean Platelet Volume 7.5; Monocytes # (A) 0.7 k/uL (0-1.0); Monocytes % (A) 5 %; Neutrophils # (A) 11.5 k/uL (1.3-7.7); Neutrophils % (A) 85 %; Poikilocytosis Moderate; RBC 2.82 m/uL (4.30-5.90); RDW 18.6 % (11.5-15.5); WBC 13.5 k/uL (3.8-10.6); WBC (Perox) 13.93
[2016-10-21 05:19] LABS: Glucose,Whole Blood 142 mg/dL (75-99)
[2016-10-21 05:39] LABS: Ionized Calcium 5.2 mg/dL (4.5-5.3)
[2016-10-21 05:54] LABS: Anion Gap 8 mmol/L; Blood Urea Nitrogen 34 mg/dL (9-20); Calcium 8.7 mg/dL (8.4-10.2); Carbon Dioxide 26 mmol/L (22-30); Chloride 110 mmol/L (98-107); Glucose 134 mg/dL (74-99); Magnesium 2.4 mg/dL (1.6-2.3); Non-African American GFR(MDRD) >60 (>60 ml/min/1.73 sqM); Phosphorous 3.5 mg/dL (2.5-4.5); Potassium 3.4 mmol/L (3.5-5.1); Sodium 144 mmol/L (137-145)
[2016-10-21 06:30] LABS: Glucose,Whole Blood 144 mg/dL (75-99)
[2016-10-21] MEDS: hydrALAZINE HCL 20 MG/ML 1 ML VIAL IVP PRN (06:51)
[2016-10-21] MEDS ORDERED: POTASSIUM CHLORIDE 20 MEQ in WATER FOR INJECTION 1 100ML.BAG IVPB ONE ×2 (07:00→11:54)
[2016-10-21 07:03] LABS: Glucose,Whole Blood 144 mg/dL (75-99)
--- NOTE | 2016-10-21 07:18 | XR ---
EXAMINATION TYPE: XR chest 1V portable DATE OF EXAM: 10/21/2016 CLINICAL HISTORY: Difficulty breathing progress study. Post open cardiac surgery. TECHNIQUE: Single AP portable upright view of the chest is obtained. COMPARISON: Chest x-ray from one day earlier FINDINGS: A right-sided PICC line and tracheostomy tube are stable in appearance. Sternal wires and mediastinal clips are redemonstrated. There is persistent cardiomegaly with bibasilar opacities. Upper lungs remain clear without pneumotho rax. Osseous structures are intact. IMPRESSION: Overall stable findings, cardiomegaly with left greater than right bibasilar atelectasi s and/or infiltrate and probable small left pleural effusion all redemonstrated
[2016-10-21] MEDS: IPRATROPIUM-ALBUTEROL 3 ML NEB INHALATION SCH ×4 (07:40→20:10)
[2016-10-21 08:02] LABS: Glucose,Whole Blood 150 mg/dL (75-99)
[2016-10-21] MEDS: PANTOPRAZOLE 40 MG/10 ML VIAL IVP SCH (08:34)
[2016-10-21] MEDS: ASPIRIN 325 MG TAB PO SCH (08:34)
[2016-10-21] MEDS: ATORVASTATIN 40 MG TAB PO SCH (08:35)
[2016-10-21] MEDS: CHLORHEXIDINE GLUCONATE 15 ML CUP MUCOUS MEM SCH ×2 (08:35→20:24)
[2016-10-21] MEDS: CLOPIDOGREL 75 MG TAB PO SCH (08:35)
[2016-10-21] MEDS: DILTIAZEM ORAL 30 MG TAB PO SCH ×4 (08:35→21:13)
[2016-10-21] MEDS: METOPROLOL TARTRATE 50 MG TAB PO SCH ×2 (08:35→20:25)
[2016-10-21 09:22] LABS: Glucose,Whole Blood 144 mg/dL (75-99)
--- NOTE | 2016-10-21 09:24 | PN ---
PROGRESS NOTE SUBJECTIVE: A 50-year-old, white male, remains in ICU. Sugars have been in mid 200s. He has got a trach and PEG. He is pretty much obtunded, is not waking up, so weaning off all sedation and Diprivan. Some broad-spectrum antibiotics for aspiration pneumonia. He is being worked up for repeat EEG for . He is spiking fevers again, possible infection . IV Tylenol will be given. A septic workup is being done. Ischemic cardiomyopathy, status post CABG, hypertension and acute febrile illness. PLAN: Broad-spectrum antibiotics will be continued. Please see further orders in the chart. IV Tylenol will be given. ICU TIME: 30 minutes. MMODL / IJN: [id number] /
--- NOTE | 2016-10-21 09:57 | P.PN ---
Subjective Principal diagnosis: Severe triple vessel coronary artery disease, Non-STEMI, hypertension, dyslipidemia, diabetes mellitus type II poorly controlled with an admission hemoglobin A1c of 10.4, severe COPD, and GERD, CHF, bipolar disorder, remote history of nicotine dependence, drug addiction and alcohol abuse. POD #11 urgent coronary artery bypass graft surgery with the left internal mammary artery to the left anterior descending artery, left radial artery to the ramus artery, reverse saphenous vein graft to the diagonal artery, reverse saphenous vein graft to posterior descending artery, left lower extremity endoscopic vein harvesting, left radial artery endoscopic harvesting, intraoperative transesophageal echocardiogram and epi-aortic scanning. Postoperative re-intubation for airway protection, prolonged mechanical ventilation. Postoperative ischemic stroke, a potential outcome of surgery. Leukocytosis, unknown source as sputum culture, blood culture, urine culture all negative. POD #3 placement of tracheostomy. POD #2 placement of percutaneous endoscopic gastrostomy tube. Patient's currently lying in bed with his eyes closed. He is moving his right arm and leg and not moving his left side with verbal stimuli. He attempts to withdrawal from noxious stimuli to his left side. He opens his eyes with verbal stimuli and is slow to respond verbally. No acute distress. His pupils are equal, round and reactive to light. Objective - Vital Signs Vital signs: Vital Signs Temp 98.8 F 10/21/16 08:00 Pulse 67 10/21/16 09:00 Resp 23 10/21/16 09:00 BP 140/71 10/21/16 09:00 Pulse Ox 97 10/21/16 09:00 Intake & Output 10/20/16 10/21/16 10/21/16 18:59 06:59 18:59 Intake Total 536.698 811.311 286.497 Output Total 910 615 175 Balance -373.302 196.311 111.497 Weight 90.5 kg 92.6 kg Intake: IV 213 363.5 194.0 0.9 at KVO 10 0.9 pressure bag 3 36 9 LR 200 240 60 Potassium Chloride 20 meq 100 In Water For Injection 1 100ml.bag @ 50 mls/hr IVPB ONCE ONE Rx#: [id number] zosyn 87.5 25.0 Intake, IV Titration 83.698 37.811 2.497 Amount Insulin Regular 100 unit 33.698 37.811 2.497 In Sodium Chloride 0.9% 100 ml @ Per Protocol IV .Q0M [facility] Rx#:[id number] Piperacillin-Tazobactam 3 50.0 .375 gm In Dextrose/Water 1 50ml.bag @ 12.5 mls/hr IVPB Q8H [facility] Rx#: [id number] Oral 50 Tube Feeding 0 180 60 Other 240 180 30 Output: Urine 910 615 175 Other: Voiding Method Indwelling Catheter Indwelling Catheter # Bowel Movements 1 ABP, PAP, CO, CI - Last Documented Arterial Blood Pressure 141/56 Pulmonary Artery Pressure 27/13 Cardiac Output 9.2 Cardiac Index 4.5 - Constitutional General appearance: Present: no acute distress - EENT Eyes: Present: PERRLA, normal appearance - Neck Details: No lymphadenopathy, no JVD. - Respiratory Details: Lung sounds with coarse rhonchi throughout, diminished to his bilateral bases. Respirations are symmetrical and nonlabored with mechanical ventilator support. Current ventilator settings are as follows:AC 18, TV 500, FiO2 40%. #8 Shiley fenestrated trach midline and intact. Sutures in place. - Cardiovascular Details: Regular rhythm and rate. S1 and S2 present, negative for S3, gallop or murmur. Sternum is stable. Bedside telemetry showing normal sinus rhythm heart rate 70. Traced generalized edema present. Right brachial PICC line present and patent. Knee-high NNEKA hose and sequential compression devices in place was bilateral lower extremities. - Gastrointestinal Gastrointestinal Comment(s): Abdomen is soft, nontender and nondistended. PEG tube in place with vital high- protein infusing at 20 mL per hour. Active bowel sounds all 4 abdominal quadrants. - Genitourinary Genitourinary Comment(s): Rosario catheter in place for accurate I&O. Clear yellow urine. - Integumentary Integumentary Comment(s): Anterior chest incision well approximated , dressing is clean dry and intact. Left lower extremity EVH site well approximated. Left radial artery site well approximated with Dermabond dressing. Positive ulnar pulse palpable to his left arm. - Neurologic Neurologic Comment(s): Spontaneous movement to his right upper and lower extremities. Response to noxious stimuli to his left extremities. No spontaneous movement to his left upper and lower extremities. Positive Babinski to his left. - Allied health notes Allied health notes reviewed: nursing - Labs CBC & Chem 7: 10/21/16 04:30 10/21/16 04:30 Labs: Abnormal Lab Results - Last 24 Hours (Table) 10/20/16 10/20/16 10/20/16 Range/Units 12:03 14:14 17:06 WBC (3.8-10.6) k/uL RBC (4.30-5.90) m/uL Hgb (13.0-17.5) gm/dL Hct (39.0-53.0) % RDW (11.5-15.5) % Neutrophils # (1.3-7.7) k/uL Potassium (3.5-5.1) mmol/L Chloride (98-107) mmol/L BUN (9-20) mg/dL Glucose (74-99) mg/dL POC Glucose (mg/dL) 145 H 152 H 141 H (75-99) mg/dL Magnesium (1.6-2.3) mg/dL 10/20/16 10/20/16 10/20/16 Range/Units 18:01 19:21 20:54 WBC (3.8-10.6) k/uL RBC (4.30-5.90) m/uL Hgb (13.0-17.5) gm/dL Hct (39.0-53.0) % RDW (11.5-15.5) % Neutrophils # (1.3-7.7) k/uL Potassium (3.5-5.1) mmol/L Chloride (98-107) mmol/L BUN (9-20) mg/dL Glucose (74-99) mg/dL POC Glucose (mg/dL) 142 H 148 H 134 H (75-99) mg/dL Magnesium (1.6-2.3) mg/dL 10/20/16 10/21/16 10/21/16 Range/Units 22:57 00:35 00:59 WBC (3.8-10.6) k/uL RBC (4.30-5.90) m/uL Hgb (13.0-17.5) gm/dL Hct (39.0-53.0) % RDW (11.5-15.5) % Neutrophils # (1.3-7.7) k/uL Potassium (3.5-5.1) mmol/L Chloride (98-107) mmol/L BUN (9-20) mg/dL Glucose (74-99) mg/dL POC Glucose (mg/dL) 142 H 138 H 135 H (75-99) mg/dL Magnesium (1.6-2.3) mg/dL 10/21/16 10/21/16 10/21/16 Range/Units 01:13 02:06 03:05 WBC (3.8-10.6) k/uL RBC (4.30-5.90) m/uL Hgb (13.0-17.5) gm/dL Hct (39.0-53.0) % RDW (11.5-15.5) % Neutrophils # (1.3-7.7) k/uL Potassium (3.5-5.1) mmol/L Chloride (98-107) mmol/L BUN (9-20) mg/dL Glucose (74-99) mg/dL POC Glucose (mg/dL) 143 H 158 H 140 H (75-99) mg/dL Magnesium (1.6-2.3) mg/dL 10/21/16 10/21/16 10/21/16 Range/Units 04:30 04:30 04:31 WBC 13.5 H (3.8-10.6) k/uL RBC 2.82 L (4.30-5.90) m/uL Hgb 8.4 L (13.0-17.5) gm/dL Hct 25.4 L (39.0-53.0) % RDW 18.6 H (11.5-15.5) % Neutrophils # 11.5 H (1.3-7.7) k/uL Potassium 3.4 L (3.5-5.1) mmol/L Chloride 110 H (98-107) mmol/L BUN 34 H (9-20) mg/dL Glucose 134 H (74-99) mg/dL POC Glucose (mg/dL) 136 H (75-99) mg/dL Magnesium 2.4 H (1.6-2.3) mg/dL 10/21/16 10/21/16 10/21/16 Range/Units 05:17 06:24 07:01 WBC (3.8-10.6) k/uL RBC (4.30-5.90) m/uL Hgb (13.0-17.5) gm/dL Hct (39.0-53.0) % RDW (11.5-15.5) % Neutrophils # (1.3-7.7) k/uL Potassium (3.5-5.1) mmol/L Chloride (98-107) mmol/L BUN (9-20) mg/dL Glucose (74-99) mg/dL POC Glucose (mg/dL) 142 H 144 H 144 H (75-99) mg/dL Magnesium (1.6-2.3) mg/dL 10/21/16 10/21/16 Range/Units 08:01 09:20 WBC (3.8-10.6) k/uL RBC (4.30-5.90) m/uL Hgb (13.0-17.5) gm/dL Hct (39.0-53.0) % RDW (11.5-15.5) % Neutrophils # (1.3-7.7) k/uL Potassium (3.5-5.1) mmol/L Chloride (98-107) mmol/L BUN (9-20) mg/dL Glucose (74-99) mg/dL POC Glucose (mg/dL) 150 H 144 H (75-99) mg/dL Magnesium (1.6-2.3) mg/dL Microbiology - Last 24 Hours (Table) 10/15/16 04:02 Blood Culture - Final Blood No Growth after 144 hours 10/15/16 04:10 Blood Culture - Final Blood No Growth after 144 hours - Imaging and Cardiology Chest x-ray: report reviewed, image reviewed Assessment and Plan (1) Non-STEMI (non-ST elevated myocardial infarction) Status: Acute (2) Coronary artery disease Status: Chronic (3) Hypertension Status: Chronic (4) COPD (chronic obstructive pulmonary disease) Status: Chronic (5) Uncontrolled type 2 diabetes mellitus Status: Acute (6) GERD (gastroesophageal reflux disease) Status: Acute (7) Hemoglobin A1C greater than 9%, indicating poor diabetic control Status: Acute (8) CHF NYHA class III (symptoms with mildly strenuous activities) Status: Acute (9) Acute left-sided weakness Status: Acute (10) Acute ischemic stroke Status: Acute (11) Bipolar 1 disorder Status: Acute (12) Drug addiction in remission Status: Acute (13) Left hemiparesis Status: Acute (14) Recovering alcoholic in remission Status: Acute (15) Tobacco dependence in remission Status: Acute (16) Tracheostomy in place Status: Acute Plan: 1. Continue aspirin, statin, Plavix, heparin subcu, beta caleb. Will maximize beta caleb therapy as tolerated. 2. Continue oral Cardizem for radial artery spasm prevention. 3. Ventilator management per pulmonary services. Wean O2 as tolerated. Daily CPAP trials to exercise lungs, diaphragm. 4. Antibiotic management per pulmonology services. Cultures negative. 5. Tube feeding vital high-protein for nutrition support per his PEG tube. 6. Insulin management per primary care service. 7. GI/DVT prophylaxis. 8. Will monitor daily labs, x-rays. 9. Keep Rosario catheter for strict accurate I and O's. Rosario changed 2016. 10. Discontinue arterial line today. 11. Discharge planning in progress. Possible discharge to select specialty within the next 24 hours if insurance authorization is approved Time with Patient: Greater than 30
[2016-10-21 10:07] LABS: Glucose,Whole Blood 143 mg/dL (75-99)
--- NOTE | 2016-10-21 10:21 | P.PN ---
Subjective Interval history 10/11/16- patient is being seen examined and evaluated on the intensive care unit. Patient has postop day 1 after CABG 4 with cardiothoracic surgeon. Patient was successfully extubated approximately for 20 this morning. Currently the patient is resting up in bed on 6 L of supplemental oxygen. Patient appears somewhat lethargic. Currently he has a left chest tube as well as mediastinal chest tube. Currently he has been AV epicardial pacemaker connected to a generator with a VVI mode with backup rate of 60 BPM. He has a right radial art line, right IJ. Per the nursing staff he has an ineffective cough as well as an ineffective swallow, he had some difficulty with swallowing earlier they're going to reattempt a swallow evaluation again this afternoon. Patient does have some shortness of breath with exertion, is noted to have some lethargy. 10/12/16- see Dr. Ramírez notes 10/13/16- patient being seen examined and evaluated in the intensive care unit. The patient was reintubated yesterday, for increased secretions as well as hyperventilation. Currently the patient is on assist control mode with a respiratory rate of 22, tidal volume 400, FiO2 50% and 0 PEEP. Continues on propofol for sedation. Tube feeds were also initiated yesterday and the patient is tolerating these well. Patient does have a left-sided internal jugular triple-lumen catheter as well as a right arterial line. Patient continues to exhibit left-sided neglect and neurology is on consult for possible stroke. Chest x-ray from this morning was reviewed and shows stable lines and tubes, cardiomegaly, postsurgical changes of the chest and scattered subsegmental atelectasis. 10/14/16-10/17/[address] Olmos's notes as he was covering 10/18/16- See Dr. Ramírez's note 10/19/16- patient is being seen in evaluated and examined today on the intensive care unit. The patient did undergo a tracheostomy placement yesterday. Currently he has a #8 Shiley, is on mechanical ventilation via the trach with assist control mode with a respiratory rate of 18 tidal volume of 500, FiO2 of 40%. Agent is scheduled to go for a PEG tube today. He continues on propofol for sedation. Patient did have some weaning trial yesterday and was able to be maintained on CPAP mode for approximately 30 minutes. Patient will have another weaning trial today after PEG tube insertion. Urine output has been good. During the sedation holiday the patient is also noted to have some continued left-sided weakness/neglect. 10/20/16- patient is being seen in evaluated and examined today given the intensive care on rounds. Currently he has on mechanical ventilation via trach with assist control mode with a respiratory rate of 18, tidal volume of 500, FiO2 40% and 0 PEEP. The patient is off of sedation and will undergoing CPAP and trials. Patient did have his PEG tube placement yesterday. Chest x- ray this morning was reviewed and shows a stable portable chest pleural effusion is unchanged and there is no change in bibasilar opacities. Labs were reviewed WBC 16.7, hemoglobin 8.4, platelet 331, sodium 145, chloride 110, potassium 3.6, BUN 27, creatinine 0.81 magnesium 2.2. awaiting clearance from surgical to use PEG tube. 10/21/16- patient has been seen examined and evaluated today in the intensive care on rounds. Currently the patient is hooked up to mechanical ventilation via trach with assist control mode, currently of 18, tidal volume of 500, FiO2 40% and 0 PEEP. Apparently CPAP trials were not able to be completed yesterday , however will be attempted today. Patient did undergo PEG tube insertion yesterday and tube feedings have been initiated. On examination the patient is currently resting in bed he is able to move his right lower extremity and right upper extremity with weakness. Patient attempts to open eyes however is slow to respond. Patient can follow commands on the right side only, able to wiggle his right toes and squeeze hands with his right hand. Discharge planning is in place [facility] Objective - Vital Signs Vital signs: Vital Signs Temp 98.8 F 10/21/16 08:00 Pulse 68 10/21/16 10:00 Resp 20 10/21/16 10:00 BP 140/72 10/21/16 10:00 Pulse Ox 94 L 10/21/16 10:00 Intake & Output 10/20/16 10/21/16 10/21/16 18:59 06:59 18:59 Intake Total 536.698 811.311 329.497 Output Total 910 615 210 Balance -373.302 196.311 119.497 Weight 90.5 kg 92.6 kg 92.6 kg Intake: IV 213 363.5 217.0 0.9 at KVO 10 0.9 pressure bag 3 36 12 LR 200 240 80 Potassium Chloride 20 meq 100 In Water For Injection 1 100ml.bag @ 50 mls/hr IVPB ONCE ONE Rx#: [id number] zosyn 87.5 25.0 Intake, IV Titration 83.698 37.811 2.497 Amount Insulin Regular 100 unit 33.698 37.811 2.497 In Sodium Chloride 0.9% 100 ml @ Per Protocol IV .Q0M [facility] Rx#:[id number] Piperacillin-Tazobactam 3 50.0 .375 gm In Dextrose/Water 1 50ml.bag @ 12.5 mls/hr IVPB Q8H [facility] Rx#: [id number] Oral 50 Tube Feeding 0 180 80 Other 240 180 30 Output: Urine 910 615 210 Other: Voiding Method Indwelling Catheter Indwelling Catheter Indwelling Catheter # Bowel Movements 1 ABP, PAP, CO, CI - Last Documented Arterial Blood Pressure 127/73 Pulmonary Artery Pressure 27/13 Cardiac Output 9.2 Cardiac Index 4.5 - Exam GENERAL EXAM: On mechanical ventilation, sedation has been turned off HEAD: Normocephalic. EYES: Normal reaction of pupils, equal size. NOSE: Clear with pink turbinates. THROAT: No erythema or exudates. NECK: No masses, no JVD. #8 Shiley trach present, dressing clean dry and intact CHEST: No chest wall deformity. The anterior chest wall incision with dressing clean dry and intact. LUNGS: Lungs are noted to be coarse throughout Bases diminished. CVS: S1 and S2 normal with no audible mumurs, regular rhythm. ABDOMEN: No hepatosplenomegaly, normal bowel sounds, no guarding or rigidity. PEG tube in place, vital high-protein infusing EXTREMITIES: trace edema noted, pedal pulses palpable. Left lower extremity site clean dry and intact, left radial harvest site clean dry and intact. SKIN: No rashes CENTRAL NERVOUS SYSTEM: On mechanical ventilation, withdraws from painful stimuli, during sedation holiday the patient is noted to have a grade 2 out of 5 upper extremity neglect right side remains 5 out of 5. Positive for left- sided Babinski - Labs CBC & Chem 7: 10/21/16 04:30 10/21/16 04:30 Labs: Abnormal Lab Results - Last 24 Hours (Table) 0910/20/16 10/20/16 Range/Units 12:03 14:14 17:06 WBC (3.8-10.6) k/uL RBC (4.30-5.90) m/uL Hgb (13.0-17.5) gm/dL Hct (39.0-53.0) % RDW (11.5-15.5) % Neutrophils # (1.3-7.7) k/uL Potassium (3.5-5.1) mmol/L Chloride (98-107) mmol/L BUN (9-20) mg/dL Glucose (74-99) mg/dL POC Glucose (mg/dL) 145 H 152 H 141 H (75-99) mg/dL Magnesium (1.6-2.3) mg/dL 10/20/16 10/20/16 10/20/16 Range/Units 18:01 19:21 20:54 WBC (3.8-10.6) k/uL RBC (4.30-5.90) m/uL Hgb (13.0-17.5) gm/dL Hct (39.0-53.0) % RDW (11.5-15.5) % Neutrophils # (1.3-7.7) k/uL Potassium (3.5-5.1) mmol/L Chloride (98-107) mmol/L BUN (9-20) mg/dL Glucose (74-99) mg/dL POC Glucose (mg/dL) 142 H 148 H 134 H (75-99) mg/dL Magnesium (1.6-2.3) mg/dL 10/20/16 10/21/16 10/21/16 Range/Units 22:57 00:35 00:59 WBC (3.8-10.6) k/uL RBC (4.30-5.90) m/uL Hgb (13.0-17.5) gm/dL Hct (39.0-53.0) % RDW (11.5-15.5) % Neutrophils # (1.3-7.7) k/uL Potassium (3.5-5.1) mmol/L Chloride (98-107) mmol/L BUN (9-20) mg/dL Glucose (74-99) mg/dL POC Glucose (mg/dL) 142 H 138 H 135 H (75-99) mg/dL Magnesium (1.6-2.3) mg/dL 10/21/16 10/21/16 10/21/16 Range/Units 01:13 02:06 03:05 WBC (3.8-10.6) k/uL RBC (4.30-5.90) m/uL Hgb (13.0-17.5) gm/dL Hct (39.0-53.0) % RDW (11.5-15.5) % Neutrophils # (1.3-7.7) k/uL Potassium (3.5-5.1) mmol/L Chloride (98-107) mmol/L BUN (9-20) mg/dL Glucose (74-99) mg/dL POC Glucose (mg/dL) 143 H 158 H 140 H (75-99) mg/dL Magnesium (1.6-2.3) mg/dL 10/21/16 10/21/16 10/21/16 Range/Units 04:30 04:30 04:31 WBC 13.5 H (3.8-10.6) k/uL RBC 2.82 L (4.30-5.90) m/uL Hgb 8.4 L (13.0-17.5) gm/dL Hct 25.4 L (39.0-53.0) % RDW 18.6 H (11.5-15.5) % Neutrophils # 11.5 H (1.3-7.7) k/uL Potassium 3.4 L (3.5-5.1) mmol/L Chloride 110 H (98-107) mmol/L BUN 34 H (9-20) mg/dL Glucose 134 H (74-99) mg/dL POC Glucose (mg/dL) 136 H (75-99) mg/dL Magnesium 2.4 H (1.6-2.3) mg/dL 10/21/16 10/21/16 10/21/16 Range/Units 05:17 06:24 07:01 WBC (3.8-10.6) k/uL RBC (4.30-5.90) m/uL Hgb (13.0-17.5) gm/dL Hct (39.0-53.0) % RDW (11.5-15.5) % Neutrophils # (1.3-7.7) k/uL Potassium (3.5-5.1) mmol/L Chloride (98-107) mmol/L BUN (9-20) mg/dL Glucose (74-99) mg/dL POC Glucose (mg/dL) 142 H 144 H 144 H (75-99) mg/dL Magnesium (1.6-2.3) mg/dL 10/21/16 10/21/16 10/21/16 Range/Units 08:01 09:20 10:05 WBC (3.8-10.6) k/uL RBC (4.30-5.90) m/uL Hgb (13.0-17.5) gm/dL Hct (39.0-53.0) % RDW (11.5-15.5) % Neutrophils # (1.3-7.7) k/uL Potassium (3.5-5.1) mmol/L Chloride (98-107) mmol/L BUN (9-20) mg/dL Glucose (74-99) mg/dL POC Glucose (mg/dL) 150 H 144 H 143 H (75-99) mg/dL Magnesium (1.6-2.3) mg/dL Microbiology - Last 24 Hours (Table) 10/15/16 04:02 Blood Culture - Final Blood No Growth after 144 hours 10/15/16 04:10 Blood Culture - Final Blood No Growth after 144 hours Assessment and Plan Plan: Assessment Acute hypoxic respiratory failure, small postoperative bilateral pleural effusions Probable CVA with left-sided hemiparesis, cannot be excluded, neurology on consult. Postop day 11, CABG 4 Acute VT and diffuse coronary artery disease Hypertension hypertensive cardiovascular disease Dyslipidemia Diabetes mellitus poorly controlled type II with complications and sequelae Severe COPD and emphysema Hemoptysis likely related to bronchial inflammation better under control no active process noted now Postop day 3, tracheostomy placement History of Bipolar disorder Postop day 2 of PEG tube placement Plan Patient is currently being evaluated for possible [facility]. Patient is post op day 11 after CABG 4. Patient is postop day 3 of tracheostomy placement. Postop day 2 of PEG tube placement. Patient should remain on mechanical ventilation, with CPAP and trials. Further recommendation depending on how patient does with the parameters. Labs and reports have been reviewed. Medications have been reviewed and will be continued as ordered. Continue with pulmonary hygiene, and supportive care. . Supplemental oxygen to maintain oxygen saturations of 92% or better. Continue nebulizer treatments. GI and DVT prophylaxis. We will continue to monitor labs/results and adjust treatment as necessary. Further recommendations pending. I performed an examination of the patient and discussed their management with the nurse practitioner. I have reviewed the nurse practitioner's note and agree with the documented findings and plan of care.
[2016-10-21 11:10] LABS: Glucose,Whole Blood 143 mg/dL (75-99)
[2016-10-21] MEDS ORDERED: Potassium Replacement Protocol 1 EACH MISC MISCELLANE PRN ×2 (11:54→16:55)
[2016-10-21 11:55] VITALS: BMI 30.1
[2016-10-21] MEDS: POTASSIUM CHLORIDE ORAL LIQUID 40 MEQ/30 ML CUP NG-TUBE SCH ×4 (12:28→18:11)
--- NOTE | 2016-10-21 13:50 | P.PN ---
Subjective Principal diagnosis: CAD status post CABG Patient had tracheostomy yesterday and still sedated he is going to have a PEG tube done. Remains in sinus rhythm hemodynamically stable, no change in his neurological status Patient is status post PEG. Off sedation but unresponsive. Has dense left- sided hemiplegia. Has had labile blood pressures his beta caleb dose had been increased Patient is going to go for long-term care facility. He still not waking up. [place] his right foot toes. He is getting intermittent intravenous Apresoline Objective - Vital Signs Vital signs: Vital Signs Temp 98.5 F 10/21/16 11:00 Pulse 65 10/21/16 12:00 Resp 28 H 10/21/16 11:38 BP 131/64 10/21/16 12:00 Pulse Ox 99 10/21/16 12:00 Intake & Output 10/20/16 10/21/16 10/21/16 18:59 06:59 18:59 Intake Total 536.698 811.311 447.997 Output Total 910 615 300 Balance -373.302 196.311 147.997 Weight 90.5 kg 92.6 kg 92.6 kg Intake: IV 213 363.5 275.5 0.9 at KVO 10 0.9 pressure bag 3 36 18 LR 200 240 120 Potassium Chloride 20 meq 100 In Water For Injection 1 100ml.bag @ 50 mls/hr IVPB ONCE ONE Rx#: [id number] zosyn 87.5 37.5 Intake, IV Titration 83.698 37.811 2.497 Amount Insulin Regular 100 unit 33.698 37.811 2.497 In Sodium Chloride 0.9% 100 ml @ Per Protocol IV .Q0M [facility] Rx#:[id number] Piperacillin-Tazobactam 3 50.0 .375 gm In Dextrose/Water 1 50ml.bag @ 12.5 mls/hr IVPB Q8H [facility] Rx#: [id number] Oral 50 Tube Feeding 0 180 140 Other 240 180 30 Output: Urine 910 615 300 Other: Voiding Method Indwelling Catheter Indwelling Catheter Indwelling Catheter # Bowel Movements 1 ABP, PAP, CO, CI - Last Documented Arterial Blood Pressure 178/64 Pulmonary Artery Pressure 27/13 Cardiac Output 9.2 Cardiac Index 4.5 - Exam Patient is status post PEG and trach. Remains in sinus rhythm. Blood pressure is well-controlled. Chest exam reveals diminished air entry with occasional rhonchi heart exam reveals first and second heart sounds or gallop abdomen is soft exam extremities did not reveal any edema - Labs CBC & Chem 7: 10/21/16 04:30 10/21/16 11:09 Labs: Abnormal Lab Results - Last 24 Hours (Table) 10/20/16 10/20/16 10/20/16 Range/Units 14:14 17:06 18:01 WBC (3.8-10.6) k/uL RBC (4.30-5.90) m/uL Hgb (13.0-17.5) gm/dL Hct (39.0-53.0) % RDW (11.5-15.5) % Neutrophils # (1.3-7.7) k/uL Potassium (3.5-5.1) mmol/L Chloride (98-107) mmol/L BUN (9-20) mg/dL Glucose (74-99) mg/dL POC Glucose (mg/dL) 152 H 141 H 142 H (75-99) mg/dL Magnesium (1.6-2.3) mg/dL 10/20/16 10/20/16 10/20/16 Range/Units 19:21 20:54 22:57 WBC (3.8-10.6) k/uL RBC (4.30-5.90) m/uL Hgb (13.0-17.5) gm/dL Hct (39.0-53.0) % RDW (11.5-15.5) % Neutrophils # (1.3-7.7) k/uL Potassium (3.5-5.1) mmol/L Chloride (98-107) mmol/L BUN (9-20) mg/dL Glucose (74-99) mg/dL POC Glucose (mg/dL) 148 H 134 H 142 H (75-99) mg/dL Magnesium (1.6-2.3) mg/dL 10/21/16 10/21/16 10/21/16 Range/Units 00:35 00:59 01:13 WBC (3.8-10.6) k/uL RBC (4.30-5.90) m/uL Hgb (13.0-17.5) gm/dL Hct (39.0-53.0) % RDW (11.5-15.5) % Neutrophils # (1.3-7.7) k/uL Potassium (3.5-5.1) mmol/L Chloride (98-107) mmol/L BUN (9-20) mg/dL Glucose (74-99) mg/dL POC Glucose (mg/dL) 138 H 135 H 143 H (75-99) mg/dL Magnesium (1.6-2.3) mg/dL 10/21/16 10/21/16 10/21/16 Range/Units 02:06 03:05 04:30 WBC 13.5 H (3.8-10.6) k/uL RBC 2.82 L (4.30-5.90) m/uL Hgb 8.4 L (13.0-17.5) gm/dL Hct 25.4 L (39.0-53.0) % RDW 18.6 H (11.5-15.5) % Neutrophils # 11.5 H (1.3-7.7) k/uL Potassium (3.5-5.1) mmol/L Chloride (98-107) mmol/L BUN (9-20) mg/dL Glucose (74-99) mg/dL POC Glucose (mg/dL) 158 H 140 H (75-99) mg/dL Magnesium (1.6-2.3) mg/dL 10/21/16 10/21/16 10/21/16 Range/Units 04:30 04:31 05:17 WBC (3.8-10.6) k/uL RBC (4.30-5.90) m/uL Hgb (13.0-17.5) gm/dL Hct (39.0-53.0) % RDW (11.5-15.5) % Neutrophils # (1.3-7.7) k/uL Potassium 3.4 L (3.5-5.1) mmol/L Chloride 110 H (98-107) mmol/L BUN 34 H (9-20) mg/dL Glucose 134 H (74-99) mg/dL POC Glucose (mg/dL) 136 H 142 H (75-99) mg/dL Magnesium 2.4 H (1.6-2.3) mg/dL 0910/21/16 10/21/16 Range/Units 06:24 07:01 08:01 WBC (3.8-10.6) k/uL RBC (4.30-5.90) m/uL Hgb (13.0-17.5) gm/dL Hct (39.0-53.0) % RDW (11.5-15.5) % Neutrophils # (1.3-7.7) k/uL Potassium (3.5-5.1) mmol/L Chloride (98-107) mmol/L BUN (9-20) mg/dL Glucose (74-99) mg/dL POC Glucose (mg/dL) 144 H 144 H 150 H (75-99) mg/dL Magnesium (1.6-2.3) mg/dL 10/21/16 10/21/16 10/21/16 Range/Units 09:20 10:05 11:07 WBC (3.8-10.6) k/uL RBC (4.30-5.90) m/uL Hgb (13.0-17.5) gm/dL Hct (39.0-53.0) % RDW (11.5-15.5) % Neutrophils # (1.3-7.7) k/uL Potassium (3.5-5.1) mmol/L Chloride (98-107) mmol/L BUN (9-20) mg/dL Glucose (74-99) mg/dL POC Glucose (mg/dL) 144 H 143 H 143 H (75-99) mg/dL Magnesium (1.6-2.3) mg/dL 10/21/16 Range/Units 11:09 WBC (3.8-10.6) k/uL RBC (4.30-5.90) m/uL Hgb (13.0-17.5) gm/dL Hct (39.0-53.0) % RDW (11.5-15.5) % Neutrophils # (1.3-7.7) k/uL Potassium 2.6 L* (3.5-5.1) mmol/L Chloride (98-107) mmol/L BUN (9-20) mg/dL Glucose (74-99) mg/dL POC Glucose (mg/dL) (75-99) mg/dL Magnesium (1.6-2.3) mg/dL Microbiology - Last 24 Hours (Table) 10/15/16 04:02 Blood Culture - Final Blood No Growth after 144 hours 10/15/16 04:10 Blood Culture - Final Blood No Growth after 144 hours Assessment and Plan Plan: CAD status post CABG Perioperative CVA Continue current medications and see the patient on an as-needed basis
[2016-10-21 14:05] LABS: Glucose,Whole Blood 150 mg/dL (75-99)
[2016-10-21 15:15] LABS: Glucose,Whole Blood 162 mg/dL (75-99)
[2016-10-21 16:02] LABS: Glucose,Whole Blood 160 mg/dL (75-99)
[2016-10-21] MEDS: LACTATED RINGERS 1,000 ML IV SCH (16:24)
[2016-10-21] MEDS: SODIUM FERRIC GLUCONAT-SUCROSE 125 MG in SODIUM CHLORIDE 0.9% 100 ML IVPB SCH (17:06)
[2016-10-21 17:22] LABS: Glucose,Whole Blood 154 mg/dL (75-99)
[2016-10-21 18:10] LABS: Glucose,Whole Blood 166 mg/dL (75-99)
[2016-10-21 19:07] LABS: Glucose,Whole Blood 176 mg/dL (75-99)
[2016-10-21 20:21] LABS: Glucose,Whole Blood 166 mg/dL (75-99)
[2016-10-21] MEDS: INSULIN GLARGINE 100 UNIT/ML 10 ML VIAL SQ SCH (20:24)
[2016-10-21] MEDS: SENNOSIDES-DOCUSATE SODIUM 1 EACH TAB PO SCH (20:25)
[2016-10-21 21:06] LABS: Glucose,Whole Blood 151 mg/dL (75-99)
[2016-10-21 22:09] LABS: Glucose,Whole Blood 160 mg/dL (75-99)
[2016-10-21 22:58] LABS: Glucose,Whole Blood 154 mg/dL (75-99)
[2016-10-22] LABS: Glucose,Whole Blood 146 mg/dL (75-99)
[2016-10-22 00:56] LABS: Glucose,Whole Blood 152 mg/dL (75-99)
[2016-10-22] MEDS: INSULIN REGULAR 100 UNIT in SODIUM CHLORIDE 0.9% 100 ML IV SCH ×2 (02:28→15:04)
[2016-10-22 02:29] LABS: Glucose,Whole Blood 140 mg/dL (75-99)
[2016-10-22 03:00] LABS: Glucose,Whole Blood 125 mg/dL (75-99)
[2016-10-22] MEDS: PIPERACILLIN-TAZOBACTAM 3.375 GM in DEXTROSE/WATER 1 50ML.BAG IVPB SCH (03:59)
[2016-10-22 04:13] LABS: Glucose,Whole Blood 136 mg/dL (75-99)
[2016-10-22 04:20] LABS: Anisocytosis Slight; Basophils % (A) 0 %; CH 30.2; CHCM 33.4; Eosinophils # (A) 0.2 k/uL (0-0.7); Eosinophils % (A) 2 %; HCT 26.4 % (39.0-53.0); HDW 4.53; HGB 8.5 gm/dL (13.0-17.5); Hypochromasia Moderate; Luc # (Auto) 0.25; Luc % (Auto) 2; Lymphocytes % (A) 10 %; MCH 29.5 pg (25.0-35.0); MCHC 32.1 g/dL (31.0-37.0); MCV 91.8 fL (80.0-100.0); Macrocytosis Slight; Mean Platelet Volume 7.7; Monocytes # (A) 0.5 k/uL (0-1.0); Monocytes % (A) 5 %; Neutrophils # (A) 8.6 k/uL (1.3-7.7); Neutrophils % (A) 81 %; Poikilocytosis Moderate; RBC 2.88 m/uL (4.30-5.90); WBC 10.6 k/uL (3.8-10.6); WBC (Perox) 10.94
[2016-10-22 04:31] LABS: Anion Gap 6 mmol/L; Blood Urea Nitrogen 33 mg/dL (9-20); Calcium 8.8 mg/dL (8.4-10.2); Carbon Dioxide 26 mmol/L (22-30); Chloride 112 mmol/L (98-107); Glucose 122 mg/dL (74-99); Magnesium 2.3 mg/dL (1.6-2.3); Non-African American GFR(MDRD) >60 (>60 ml/min/1.73 sqM); Phosphorous 3.1 mg/dL (2.5-4.5); Potassium 3.9 mmol/L (3.5-5.1); Sodium 144 mmol/L (137-145)
[2016-10-22 05:20] LABS: Glucose,Whole Blood 130 mg/dL (75-99)
[2016-10-22] MEDS ORDERED: POTASSIUM CHLORIDE ORAL LIQUID 40 MEQ/30 ML CUP NG-TUBE SCH (06:00)
[2016-10-22 06:18] LABS: Glucose,Whole Blood 138 mg/dL (75-99)
[2016-10-22 06:48] LABS: Glucose,Whole Blood 145 mg/dL (75-99)
[2016-10-22 07:58] LABS: Glucose,Whole Blood 136 mg/dL (75-99)
--- NOTE | 2016-10-22 08:03 | XR ---
EXAMINATION TYPE: XR chest 1V portable DATE OF EXAM: 10/22/2016 HISTORY: post cardiac surgery. REFERENCE: Previous study dated 10/21/2016. FINDINGS: There has been a midline sternotomy. There is a tracheostomy tube in place. Its tip overlies the tracheal air column in this single fronta l projection. The heart is enlarged. There is dense consolidation behind the left heart. There is a left effusion. There is atelectatic change present at the right lung base. There is vascular congestion without bryan k edema. IMPRESSION: CONTINUING POSTOPERATIVE CHANGE.
[2016-10-22] MEDS: IPRATROPIUM-ALBUTEROL 3 ML NEB INHALATION SCH ×4 (08:10→20:23)
[2016-10-22] MEDS: PANTOPRAZOLE 40 MG/10 ML VIAL IVP SCH (08:10)
[2016-10-22] MEDS: CHLORHEXIDINE GLUCONATE 15 ML CUP MUCOUS MEM SCH ×2 (08:10→20:00)
[2016-10-22] MEDS: ASPIRIN 325 MG TAB PO SCH (08:10)
[2016-10-22] MEDS: HEPARIN SODIUM,PORCINE 5,000 UNIT/ML 1 ML VIAL SQ SCH ×2 (08:10→16:45)
[2016-10-22] MEDS: DILTIAZEM ORAL 30 MG TAB PO SCH ×4 (08:11→21:05)
[2016-10-22] MEDS: METOPROLOL TARTRATE 50 MG TAB PO SCH ×2 (08:11→21:05)
[2016-10-22] MEDS: ATORVASTATIN 40 MG TAB PO SCH (08:11)
[2016-10-22] MEDS: CLOPIDOGREL 75 MG TAB PO SCH (08:11)
[2016-10-22 09:03] LABS: Glucose,Whole Blood 137 mg/dL (75-99)
--- NOTE | 2016-10-22 09:06 | P.PN ---
Subjective Interval history 10/11/16- patient is being seen examined and evaluated on the intensive care unit. Patient has postop day 1 after CABG 4 with cardiothoracic surgeon. Patient was successfully extubated approximately for 20 this morning. Currently the patient is resting up in bed on 6 L of supplemental oxygen. Patient appears somewhat lethargic. Currently he has a left chest tube as well as mediastinal chest tube. Currently he has been AV epicardial pacemaker connected to a generator with a VVI mode with backup rate of 60 BPM. He has a right radial art line, right IJ. Per the nursing staff he has an ineffective cough as well as an ineffective swallow, he had some difficulty with swallowing earlier they're going to reattempt a swallow evaluation again this afternoon. Patient does have some shortness of breath with exertion, is noted to have some lethargy. 10/12/16- see Dr. Ramírez notes 10/13/16- patient being seen examined and evaluated in the intensive care unit. The patient was reintubated yesterday, for increased secretions as well as hyperventilation. Currently the patient is on assist control mode with a respiratory rate of 22, tidal volume 400, FiO2 50% and 0 PEEP. Continues on propofol for sedation. Tube feeds were also initiated yesterday and the patient is tolerating these well. Patient does have a left-sided internal jugular triple-lumen catheter as well as a right arterial line. Patient continues to exhibit left-sided neglect and neurology is on consult for possible stroke. Chest x-ray from this morning was reviewed and shows stable lines and tubes, cardiomegaly, postsurgical changes of the chest and scattered subsegmental atelectasis. 10/14/16-10/17/[address] Olmos's notes as he was covering 10/18/16- See Dr. Ramírez's note 10/19/16- patient is being seen in evaluated and examined today on the intensive care unit. The patient did undergo a tracheostomy placement yesterday. Currently he has a #8 Shiley, is on mechanical ventilation via the trach with assist control mode with a respiratory rate of 18 tidal volume of 500, FiO2 of 40%. Agent is scheduled to go for a PEG tube today. He continues on propofol for sedation. Patient did have some weaning trial yesterday and was able to be maintained on CPAP mode for approximately 30 minutes. Patient will have another weaning trial today after PEG tube insertion. Urine output has been good. During the sedation holiday the patient is also noted to have some continued left-sided weakness/neglect. 10/20/16- patient is being seen in evaluated and examined today given the intensive care on rounds. Currently he has on mechanical ventilation via trach with assist control mode with a respiratory rate of 18, tidal volume of 500, FiO2 40% and 0 PEEP. The patient is off of sedation and will undergoing CPAP and trials. Patient did have his PEG tube placement yesterday. Chest x- ray this morning was reviewed and shows a stable portable chest pleural effusion is unchanged and there is no change in bibasilar opacities. Labs were reviewed WBC 16.7, hemoglobin 8.4, platelet 331, sodium 145, chloride 110, potassium 3.6, BUN 27, creatinine 0.81 magnesium 2.2. awaiting clearance from surgical to use PEG tube. 10/21/16- patient has been seen examined and evaluated today in the intensive care on rounds. Currently the patient is hooked up to mechanical ventilation via trach with assist control mode, currently of 18, tidal volume of 500, FiO2 40% and 0 PEEP. Apparently CPAP trials were not able to be completed yesterday , however will be attempted today. Patient did undergo PEG tube insertion yesterday and tube feedings have been initiated. On examination the patient is currently resting in bed he is able to move his right lower extremity and right upper extremity with weakness. Patient attempts to open eyes however is slow to respond. Patient can follow commands on the right side only, able to wiggle his right toes and squeeze hands with his right hand. Discharge planning is in place [facility] 10/22/16- patient seen seen examined and evaluated today in the intensive care on rounds. Patient continues on mechanical ventilation without sedation via trach. Current ventilator settings are assist control mode with a rate of 18, tidal volume of 500, FiO2 40% and 0 PEEP. We will continue with CPAP trials today. Patient is tolerating tube feeds well. Patient is able to follow on the right side, he is able to squeeze hand on the right side and wiggle his right-sided toes. Occasionally opens his eyes spontaneously. Discharge planning continues to be set up for [facility] with a possible transfer on Monday. All labs and reports have been reviewed. Objective - Vital Signs Vital signs: Vital Signs Temp 100.4 F H 10/22/16 04:00 Pulse 70 10/22/16 08:30 Resp 20 10/22/16 07:00 BP 141/78 10/22/16 07:00 Pulse Ox 98 10/22/16 07:00 Intake & Output 10/21/16 10/22/16 10/22/16 18:59 06:59 18:59 Intake Total 467.497 3555.769 171.592 Output Total 900 1030 85 Balance -152.503 392.769 86.592 Weight 92.6 kg 92.6 kg Intake: IV 445.0 367.5 32.5 0.9 at KVO 40 0.9 pressure bag 30 LR 240 240 20 Potassium Chloride 20 meq 100 In Water For Injection 1 100ml.bag @ 50 mls/hr IVPB ONCE ONE Rx#: [id number] zosyn 75.0 87.5 12.5 Intake, IV Titration 102.497 95.269 34.092 Amount Insulin Regular 100 unit 2.497 95.269 34.092 In Sodium Chloride 0.9% 100 ml @ Per Protocol IV .Q0M [facility] Rx#:[id number] Sodium Ferric Gluconat- 100 Sucrose 125 mg In Sodium Chloride 0.9% 100 ml @ 100 mls/hr IVPB Q24H [facility] Rx#:[id number] Tube Feeding 170 640 105 Other 30 320 Output: Urine 900 1030 85 Other: Voiding Method Indwelling Catheter Indwelling Catheter # Voids 1 # Bowel Movements 1 1 ABP, PAP, CO, CI - Last Documented Arterial Blood Pressure 156/62 Pulmonary Artery Pressure 27/13 Cardiac Output 9.2 Cardiac Index 4.5 - Exam GENERAL EXAM: On mechanical ventilation, sedation has been turned off HEAD: Normocephalic. EYES: Normal reaction of pupils, equal size. NOSE: Clear with pink turbinates. THROAT: No erythema or exudates. NECK: No masses, no JVD. #8 Shiley trach present, dressing clean dry and intact CHEST: No chest wall deformity. The anterior chest wall incision with dressing clean dry and intact. LUNGS: Lungs are noted to be coarse throughout Bases diminished. CVS: S1 and S2 normal with no audible mumurs, regular rhythm. ABDOMEN: No hepatosplenomegaly, normal bowel sounds, no guarding or rigidity. PEG tube in place, vital high-protein infusing EXTREMITIES: trace edema noted, pedal pulses palpable. Left lower extremity site clean dry and intact, left radial harvest site clean dry and intact. SKIN: No rashes CENTRAL NERVOUS SYSTEM: On mechanical ventilation, withdraws from painful stimuli, during sedation holiday the patient is noted to have a grade 2 out of 5 upper extremity neglect right side remains 5 out of 5. Positive for left- sided Babinski - Labs CBC & Chem 7: 10/22/16 04:10 10/22/16 04:10 Labs: Abnormal Lab Results - Last 24 Hours (Table) 10/21/16 10/21/16 10/21/16 Range/Units 09:20 10:05 11:07 RBC (4.30-5.90) m/uL Hgb (13.0-17.5) gm/dL Hct (39.0-53.0) % RDW (11.5-15.5) % Neutrophils # (1.3-7.7) k/uL Potassium (3.5-5.1) mmol/L Chloride (98-107) mmol/L BUN (9-20) mg/dL Glucose (74-99) mg/dL POC Glucose (mg/dL) 144 H 143 H 143 H (75-99) mg/dL 10/21/16 10/21/16 10/21/16 Range/Units 11:09 14:03 15:13 RBC (4.30-5.90) m/uL Hgb (13.0-17.5) gm/dL Hct (39.0-53.0) % RDW (11.5-15.5) % Neutrophils # (1.3-7.7) k/uL Potassium 2.6 L* (3.5-5.1) mmol/L Chloride (98-107) mmol/L BUN (9-20) mg/dL Glucose (74-99) mg/dL POC Glucose (mg/dL) 150 H 162 H (75-99) mg/dL 10/21/16 10/21/16 10/21/16 Range/Units 15:15 16:01 17:21 RBC (4.30-5.90) m/uL Hgb (13.0-17.5) gm/dL Hct (39.0-53.0) % RDW (11.5-15.5) % Neutrophils # (1.3-7.7) k/uL Potassium 3.2 L (3.5-5.1) mmol/L Chloride (98-107) mmol/L BUN (9-20) mg/dL Glucose (74-99) mg/dL POC Glucose (mg/dL) 160 H 154 H (75-99) mg/dL 10/21/16 10/21/16 10/21/16 Range/Units 18:08 19:04 20:19 RBC (4.30-5.90) m/uL Hgb (13.0-17.5) gm/dL Hct (39.0-53.0) % RDW (11.5-15.5) % Neutrophils # (1.3-7.7) k/uL Potassium (3.5-5.1) mmol/L Chloride (98-107) mmol/L BUN (9-20) mg/dL Glucose (74-99) mg/dL POC Glucose (mg/dL) 166 H 176 H 166 H (75-99) mg/dL 10/21/16 10/21/16 10/21/16 Range/Units 21:05 22:07 22:55 RBC (4.30-5.90) m/uL Hgb (13.0-17.5) gm/dL Hct (39.0-53.0) % RDW (11.5-15.5) % Neutrophils # (1.3-7.7) k/uL Potassium (3.5-5.1) mmol/L Chloride (98-107) mmol/L BUN (9-20) mg/dL Glucose (74-99) mg/dL POC Glucose (mg/dL) 151 H 160 H 154 H (75-99) mg/dL 10/21/16 10/22/16 10/22/16 Range/Units 23:59 00:55 02:28 RBC (4.30-5.90) m/uL Hgb (13.0-17.5) gm/dL Hct (39.0-53.0) % RDW (11.5-15.5) % Neutrophils # (1.3-7.7) k/uL Potassium (3.5-5.1) mmol/L Chloride (98-107) mmol/L BUN (9-20) mg/dL Glucose (74-99) mg/dL POC Glucose (mg/dL) 146 H 152 H 140 H (75-99) mg/dL 10/22/16 10/22/16 10/22/16 Range/Units 02:57 04:10 04:10 RBC 2.88 L (4.30-5.90) m/uL Hgb 8.5 L (13.0-17.5) gm/dL Hct 26.4 L (39.0-53.0) % RDW 19.0 H (11.5-15.5) % Neutrophils # 8.6 H (1.3-7.7) k/uL Potassium (3.5-5.1) mmol/L Chloride 112 H (98-107) mmol/L BUN 33 H (9-20) mg/dL Glucose 122 H (74-99) mg/dL POC Glucose (mg/dL) 125 H (75-99) mg/dL 10/22/16 10/22/16 10/22/16 Range/Units 04:10 05:18 06:16 RBC (4.30-5.90) m/uL Hgb (13.0-17.5) gm/dL Hct (39.0-53.0) % RDW (11.5-15.5) % Neutrophils # (1.3-7.7) k/uL Potassium (3.5-5.1) mmol/L Chloride (98-107) mmol/L BUN (9-20) mg/dL Glucose (74-99) mg/dL POC Glucose (mg/dL) 136 H 130 H 138 H (75-99) mg/dL 10/22/16 10/22/16 Range/Units 06:47 07:56 RBC (4.30-5.90) m/uL Hgb (13.0-17.5) gm/dL Hct (39.0-53.0) % RDW (11.5-15.5) % Neutrophils # (1.3-7.7) k/uL Potassium (3.5-5.1) mmol/L Chloride (98-107) mmol/L BUN (9-20) mg/dL Glucose (74-99) mg/dL POC Glucose (mg/dL) 145 H 136 H (75-99) mg/dL Microbiology - Last 24 Hours (Table) 10/15/16 04:02 Blood Culture - Final Blood No Growth after 144 hours 10/15/16 04:10 Blood Culture - Final Blood No Growth after 144 hours Assessment and Plan Plan: Assessment Acute hypoxic respiratory failure, small postoperative bilateral pleural effusions Probable CVA with left-sided hemiparesis, cannot be excluded, neurology on consult. 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 Patient is post op day 12 after CABG 4. Patient is postop day 4 of tracheostomy placement. Postop day 3 of PEG tube placement. Patient should remain on mechanical ventilation, with CPAP and trials. We will discontinue the patient's IV Zosyn, cultures have been negative, no white count noted. Labs and reports have been reviewed. Medications have been reviewed and will be continued as ordered. Continue with pulmonary hygiene, and supportive care. . Supplemental oxygen to maintain oxygen saturations of 92% or better. Continue nebulizer treatments. GI and DVT prophylaxis. We will continue to monitor labs/results and adjust treatment as necessary. Further recommendations pending. I performed an examination of the patient and discussed their management with the nurse practitioner. I have reviewed the nurse practitioner's note and agree with the documented findings and plan of care.
--- NOTE | 2016-10-22 09:30 | P.PN ---
Subjective Principal diagnosis: Severe triple vessel coronary artery disease, Non-STEMI, hypertension, dyslipidemia, diabetes mellitus type II poorly controlled with an admission hemoglobin A1c of 10.4, severe COPD, and GERD, CHF, bipolar disorder, remote history of nicotine dependence, drug addiction and alcohol abuse. POD #12 urgent coronary artery bypass graft surgery with the left internal mammary artery to the left anterior descending artery, left radial artery to the ramus artery, reverse saphenous vein graft to the diagonal artery, reverse saphenous vein graft to posterior descending artery, left lower extremity endoscopic vein harvesting, left radial artery endoscopic harvesting, intraoperative transesophageal echocardiogram and epi-aortic scanning. Postoperative re-intubation for airway protection, prolonged mechanical ventilation. Postoperative ischemic stroke, a potential outcome of surgery. Leukocytosis, unknown source as sputum culture, blood culture, urine culture all negative. POD #4 placement of tracheostomy. POD #3 placement of percutaneous endoscopic gastrostomy tube. Patient's currently lying in bed with his eyes closed. He is moving his right arm and leg and not moving his left side with verbal stimuli. He attempts to withdrawal from noxious stimuli to his left side. He opens his eyes with verbal stimuli intermittently and is slow to respond to verbal stimuli. No acute distress. His pupils are equal, round and reactive to light. His sister is at his bedside. Objective - Vital Signs Vital signs: Vital Signs Temp 99.4 F 10/22/16 08:00 Pulse 68 10/22/16 09:00 Resp 18 10/22/16 09:00 BP 147/76 10/22/16 09:00 Pulse Ox 97 10/22/16 09:00 Intake & Output 10/21/16 10/22/16 10/22/16 18:59 06:59 18:59 Intake Total 211.523 8581.769 259.092 Output Total 900 1030 85 Balance -152.503 392.769 174.092 Weight 92.6 kg 92.6 kg Intake: IV 445.0 367.5 65.0 0.9 at KVO 40 0.9 pressure bag 30 LR 240 240 40 Potassium Chloride 20 meq 100 In Water For Injection 1 100ml.bag @ 50 mls/hr IVPB ONCE ONE Rx#: [id number] zosyn 75.0 87.5 25.0 Intake, IV Titration 102.497 95.269 34.092 Amount Insulin Regular 100 unit 2.497 95.269 34.092 In Sodium Chloride 0.9% 100 ml @ Per Protocol IV .Q0M [facility] Rx#:[id number] Sodium Ferric Gluconat- 100 Sucrose 125 mg In Sodium Chloride 0.9% 100 ml @ 100 mls/hr IVPB Q24H [facility] Rx#:[id number] Tube Feeding 170 640 160 Other 30 320 Output: Urine 900 1030 85 Other: Voiding Method Indwelling Catheter Indwelling Catheter # Voids 1 # Bowel Movements 1 1 ABP, PAP, CO, CI - Last Documented Arterial Blood Pressure 156/62 Pulmonary Artery Pressure 27/13 Cardiac Output 9.2 Cardiac Index 4.5 - Constitutional General appearance: Present: no acute distress - EENT Eyes: Present: PERRLA, normal appearance - Neck Details: No JVD present. - Respiratory Details: Lung sounds with few scattered rhonchi throughout, diminished to his bilateral bases. Respirations are symmetrical and unlabored with mechanical ventilator support. Current ventilator settings are as follows: AC 18, TV 500, FiO2 40%. #8 Shiley fenestrated trach midline and intact. Sutures in place. Oxygen saturations are 98% with 40% FiO2. - Cardiovascular Details: Regular rhythm and rate. S1 and S2 present, negative for S3, gallop or murmur. Bedside telemetry showing normal sinus rhythm heart rate 69. Sternum is stable. Trace generalized edema. Right brachial PICC line present and patent. Knee-high NNEKA hose and sequential compression devices in place to his bilateral lower extremities. - Gastrointestinal Gastrointestinal Comment(s): Abdomen is soft, nondistended and nontender. No guarding or rigidity. PEG tube in place with vital high-protein 1.2 and fusing at goal rate of 55 mL per hour. Positive bowel movement yesterday 10/21/2016. - Genitourinary Genitourinary Comment(s): Rosario catheter in place for accurate I&O. Clear yellow urine. - Integumentary Integumentary Comment(s): Anterior chest incision well approximated , dressing is clean dry and intact. Left lower extremity EVH site well approximated. Left radial artery site well approximated with Dermabond dressing. Positive ulnar pulse palpable to his left arm. - Neurologic Neurologic Comment(s): Spontaneous movement to his right upper and lower extremities. Intermittently follows simple commands to his right extremities. Responds to noxious stimuli to his left extremities. No spontaneous movement to his left upper and lower extremities. Positive Babinski to his left. - Allied health notes Allied health notes reviewed: nursing - Labs CBC & Chem 7: 10/22/16 04:10 10/22/16 04:10 Labs: Abnormal Lab Results - Last 24 Hours (Table) 10/21/16 10/21/16 10/21/16 Range/Units 09:20 10:05 11:07 RBC (4.30-5.90) m/uL Hgb (13.0-17.5) gm/dL Hct (39.0-53.0) % RDW (11.5-15.5) % Neutrophils # (1.3-7.7) k/uL Potassium (3.5-5.1) mmol/L Chloride (98-107) mmol/L BUN (9-20) mg/dL Glucose (74-99) mg/dL POC Glucose (mg/dL) 144 H 143 H 143 H (75-99) mg/dL 10/21/16 10/21/16 10/21/16 Range/Units 11:09 14:03 15:13 RBC (4.30-5.90) m/uL Hgb (13.0-17.5) gm/dL Hct (39.0-53.0) % RDW (11.5-15.5) % Neutrophils # (1.3-7.7) k/uL Potassium 2.6 L* (3.5-5.1) mmol/L Chloride (98-107) mmol/L BUN (9-20) mg/dL Glucose (74-99) mg/dL POC Glucose (mg/dL) 150 H 162 H (75-99) mg/dL 10/21/16 10/21/16 10/21/16 Range/Units 15:15 16:01 17:21 RBC (4.30-5.90) m/uL Hgb (13.0-17.5) gm/dL Hct (39.0-53.0) % RDW (11.5-15.5) % Neutrophils # (1.3-7.7) k/uL Potassium 3.2 L (3.5-5.1) mmol/L Chloride (98-107) mmol/L BUN (9-20) mg/dL Glucose (74-99) mg/dL POC Glucose (mg/dL) 160 H 154 H (75-99) mg/dL 10/21/16 10/21/16 10/21/16 Range/Units 18:08 19:04 20:19 RBC (4.30-5.90) m/uL Hgb (13.0-17.5) gm/dL Hct (39.0-53.0) % RDW (11.5-15.5) % Neutrophils # (1.3-7.7) k/uL Potassium (3.5-5.1) mmol/L Chloride (98-107) mmol/L BUN (9-20) mg/dL Glucose (74-99) mg/dL POC Glucose (mg/dL) 166 H 176 H 166 H (75-99) mg/dL 10/21/16 10/21/16 10/21/16 Range/Units 21:05 22:07 22:55 RBC (4.30-5.90) m/uL Hgb (13.0-17.5) gm/dL Hct (39.0-53.0) % RDW (11.5-15.5) % Neutrophils # (1.3-7.7) k/uL Potassium (3.5-5.1) mmol/L Chloride (98-107) mmol/L BUN (9-20) mg/dL Glucose (74-99) mg/dL POC Glucose (mg/dL) 151 H 160 H 154 H (75-99) mg/dL 10/21/16 10/22/16 10/22/16 Range/Units 23:59 00:55 02:28 RBC (4.30-5.90) m/uL Hgb (13.0-17.5) gm/dL Hct (39.0-53.0) % RDW (11.5-15.5) % Neutrophils # (1.3-7.7) k/uL Potassium (3.5-5.1) mmol/L Chloride (98-107) mmol/L BUN (9-20) mg/dL Glucose (74-99) mg/dL POC Glucose (mg/dL) 146 H 152 H 140 H (75-99) mg/dL 10/22/16 10/22/16 10/22/16 Range/Units 02:57 04:10 04:10 RBC 2.88 L (4.30-5.90) m/uL Hgb 8.5 L (13.0-17.5) gm/dL Hct 26.4 L (39.0-53.0) % RDW 19.0 H (11.5-15.5) % Neutrophils # 8.6 H (1.3-7.7) k/uL Potassium (3.5-5.1) mmol/L Chloride 112 H (98-107) mmol/L BUN 33 H (9-20) mg/dL Glucose 122 H (74-99) mg/dL POC Glucose (mg/dL) 125 H (75-99) mg/dL 10/22/16 10/22/16 10/22/16 Range/Units 04:10 05:18 06:16 RBC (4.30-5.90) m/uL Hgb (13.0-17.5) gm/dL Hct (39.0-53.0) % RDW (11.5-15.5) % Neutrophils # (1.3-7.7) k/uL Potassium (3.5-5.1) mmol/L Chloride (98-107) mmol/L BUN (9-20) mg/dL Glucose (74-99) mg/dL POC Glucose (mg/dL) 136 H 130 H 138 H (75-99) mg/dL 10/22/16 10/22/16 10/22/16 Range/Units 06:47 07:56 09:00 RBC (4.30-5.90) m/uL Hgb (13.0-17.5) gm/dL Hct (39.0-53.0) % RDW (11.5-15.5) % Neutrophils # (1.3-7.7) k/uL Potassium (3.5-5.1) mmol/L Chloride (98-107) mmol/L BUN (9-20) mg/dL Glucose (74-99) mg/dL POC Glucose (mg/dL) 145 H 136 H 137 H (75-99) mg/dL Microbiology - Last 24 Hours (Table) 10/15/16 04:02 Blood Culture - Final Blood No Growth after 144 hours 10/15/16 04:10 Blood Culture - Final Blood No Growth after 144 hours - Imaging and Cardiology Chest x-ray: report reviewed, image reviewed Assessment and Plan (1) Non-STEMI (non-ST elevated myocardial infarction) Status: Acute (2) Coronary artery disease Status: Chronic (3) Hypertension Status: Chronic (4) COPD (chronic obstructive pulmonary disease) Status: Chronic (5) Uncontrolled type 2 diabetes mellitus Status: Acute (6) GERD (gastroesophageal reflux disease) Status: Acute (7) Hemoglobin A1C greater than 9%, indicating poor diabetic control Status: Acute (8) CHF NYHA class III (symptoms with mildly strenuous activities) Status: Acute (9) Acute left-sided weakness Status: Acute (10) Acute ischemic stroke Status: Acute (11) Bipolar 1 disorder Status: Acute (12) Drug addiction in remission Status: Acute (13) Left hemiparesis Status: Acute (14) Recovering alcoholic in remission Status: Acute (15) Tobacco dependence in remission Status: Acute (16) Tracheostomy in place Status: Acute Plan: 1. Continue aspirin, statin, Plavix, heparin subcu, beta caleb. Will maximize beta caleb therapy as tolerated. 2. Continue oral Cardizem for radial artery spasm prevention. 3. Ventilator management per pulmonary services. Wean O2 as tolerated. Daily CPAP trials to exercise lungs, diaphragm. 4. Antibiotic have been discontinued today per pulmonology services recommendations. Cultures negative, afebrile. 5. Tube feeding vital high-protein for nutrition support per his PEG tube. Goal rate 55 mL per hour. 6. Insulin management per primary care service. 7. GI/DVT prophylaxis. 8. Will monitor daily labs, x-rays. 9. Keep Rosario catheter for strict accurate I and O's. Rosario changed 2016. 10. Discharge planning in progress. Discharge to select specialty when insurance authorization is approved Time with Patient: Greater than 30
[2016-10-22 09:53] LABS: Glucose,Whole Blood 152 mg/dL (75-99)
[2016-10-22 11:12] LABS: Glucose,Whole Blood 153 mg/dL (75-99)
[2016-10-22 11:59] LABS: Glucose,Whole Blood 143 mg/dL (75-99)
[2016-10-22 12:59] LABS: Glucose,Whole Blood 137 mg/dL (75-99)
[2016-10-22 13:58] LABS: Glucose,Whole Blood 136 mg/dL (75-99)
--- NOTE | 2016-10-22 14:16 | P.PN ---
Progress Note - Text The patient receiving tube feeds. His PEG site is clean dry.
[2016-10-22 15:02] LABS: Glucose,Whole Blood 124 mg/dL (75-99)
[2016-10-22] MEDS: LACTATED RINGERS 1,000 ML IV SCH (15:06)
[2016-10-22 16:07] LABS: Glucose,Whole Blood 127 mg/dL (75-99)
[2016-10-22 16:54] LABS: Glucose,Whole Blood 130 mg/dL (75-99)
[2016-10-22] MEDS: SODIUM FERRIC GLUCONAT-SUCROSE 125 MG in SODIUM CHLORIDE 0.9% 100 ML IVPB SCH (17:33)
[2016-10-22 18:05] LABS: Glucose,Whole Blood 118 mg/dL (75-99)
[2016-10-22 18:52] LABS: Glucose,Whole Blood 109 mg/dL (75-99)
[2016-10-22 19:55] LABS: Glucose,Whole Blood 143 mg/dL (75-99)
[2016-10-22 20:54] LABS: Glucose,Whole Blood 150 mg/dL (75-99)
[2016-10-22] MEDS: INSULIN GLARGINE 100 UNIT/ML 10 ML VIAL SQ SCH (21:06)
[2016-10-22] MEDS: SENNOSIDES-DOCUSATE SODIUM 1 EACH TAB PO SCH (21:07)
[2016-10-22 22:12] LABS: Glucose,Whole Blood 147 mg/dL (75-99)
[2016-10-22 23:17] LABS: Glucose,Whole Blood 128 mg/dL (75-99)
[2016-10-23] MEDS: HEPARIN SODIUM,PORCINE 5,000 UNIT/ML 1 ML VIAL SQ SCH ×3 (00:18→17:03)
[2016-10-23 00:22] LABS: Glucose,Whole Blood 128 mg/dL (75-99)
[2016-10-23 01:53] LABS: Glucose,Whole Blood 104 mg/dL (75-99)
[2016-10-23 03:08] LABS: Glucose,Whole Blood 141 mg/dL (75-99)
[2016-10-23] MEDS: hydrALAZINE HCL 20 MG/ML 1 ML VIAL IVP PRN (03:10)
[2016-10-23 04:06] LABS: Glucose,Whole Blood 156 mg/dL (75-99)
[2016-10-23 04:31] LABS: Anisocytosis Slight; Basophils % (A) 0 %; CH 29.9; Eosinophils # (A) 0.1 k/uL (0-0.7); Eosinophils % (A) 1 %; HCT 26.9 % (39.0-53.0); HDW 4.43; HGB 8.7 gm/dL (13.0-17.5); Hypochromasia Moderate; Luc # (Auto) 0.18; Luc % (Auto) 2; Lymphocytes # (A) 1.1 k/uL (1.0-4.8); Lymphocytes % (A) 11 %; MCH 29.9 pg (25.0-35.0); MCHC 32.6 g/dL (31.0-37.0); MCV 91.9 fL (80.0-100.0); Macrocytosis Slight; Mean Platelet Volume 7.7; Monocytes # (A) 0.5 k/uL (0-1.0); Monocytes % (A) 5 %; Neutrophils # (A) 8.6 k/uL (1.3-7.7); Neutrophils % (A) 82 %; Poikilocytosis Moderate; RBC 2.92 m/uL (4.30-5.90); RDW 19.2 % (11.5-15.5); WBC 10.5 k/uL (3.8-10.6); WBC (Perox) 10.98
[2016-10-23 04:45] LABS: ALT 53 U/L (21-72); AST 33 U/L (17-59); Alkaline Phosphatase 67 U/L (38-126); Anion Gap 9 mmol/L; Blood Urea Nitrogen 29 mg/dL (9-20); Calcium 8.8 mg/dL (8.4-10.2); Carbon Dioxide 26 mmol/L (22-30); Chloride 108 mmol/L (98-107); Glucose 147 mg/dL (74-99); Magnesium 2.1 mg/dL (1.6-2.3); Non-African American GFR(MDRD) >60 (>60 ml/min/1.73 sqM); Phosphorous 3.6 mg/dL (2.5-4.5); Potassium 3.4 mmol/L (3.5-5.1); Sodium 143 mmol/L (137-145); Total Bilirubin 0.9 mg/dL (0.2-1.3); Total Protein 5.1 g/dL (6.3-8.2)
[2016-10-23 04:59] LABS: Glucose,Whole Blood 142 mg/dL (75-99)
[2016-10-23] MEDS: POTASSIUM CHLORIDE ORAL LIQUID 40 MEQ/30 ML CUP NG-TUBE SCH ×2 (05:40→06:50)
[2016-10-23 06:13] LABS: Glucose,Whole Blood 150 mg/dL (75-99)
[2016-10-23] MEDS: INSULIN REGULAR 100 UNIT in SODIUM CHLORIDE 0.9% 100 ML IV SCH (06:50)
[2016-10-23 06:53] LABS: Glucose,Whole Blood 146 mg/dL (75-99)
--- NOTE | 2016-10-23 07:35 | XR ---
EXAMINATION TYPE: XR chest 1V portable DATE OF EXAM: 10/23/2016 HISTORY: follow up vented. REFERENCE: Previous study dated 10/22/2016. FINDINGS: There has been a midline sternotomy. There is a tracheostomy tube in place. Its tip overlie s the tracheal air column in this single frontal projection. The heart is upper limits of normal in size. There is vascular congestion without buck edema. There is consolidation behind the left heart. There is a left-sided effusion. There is improved aeration at the right lung base. IMPRESSION: IMPROVED AERATION, RIGHT LUNG BASE.
[2016-10-23 07:50] LABS: Glucose,Whole Blood 132 mg/dL (75-99)
[2016-10-23] MEDS: ASPIRIN 325 MG TAB PO SCH (08:06)
[2016-10-23] MEDS: ATORVASTATIN 40 MG TAB PO SCH (08:07)
[2016-10-23] MEDS: METOPROLOL TARTRATE 50 MG TAB PO SCH ×2 (08:07→22:04)
[2016-10-23] MEDS: DILTIAZEM ORAL 30 MG TAB PO SCH ×4 (08:07→22:04)
[2016-10-23] MEDS: CLOPIDOGREL 75 MG TAB PO SCH (08:07)
[2016-10-23] MEDS: PANTOPRAZOLE 40 MG/10 ML VIAL IVP SCH (08:07)
[2016-10-23] MEDS: CHLORHEXIDINE GLUCONATE 15 ML CUP MUCOUS MEM SCH ×2 (08:08→22:04)
[2016-10-23] MEDS: INSULIN GLARGINE 100 UNIT/ML 10 ML VIAL SQ SCH ×2 (08:11→20:48)
--- NOTE | 2016-10-23 08:15 | P.PN ---
<Kaz Avila - Last Filed: 10/23/16 08:01> Subjective Principal diagnosis: Severe triple vessel coronary artery disease, Non-STEMI, hypertension, dyslipidemia, diabetes mellitus type II poorly controlled with an admission hemoglobin A1c of 10.4, severe COPD, and GERD, CHF, bipolar disorder, remote history of nicotine dependence, drug addiction and alcohol abuse. POD #13 urgent coronary artery bypass graft surgery with the left internal mammary artery to the left anterior descending artery, left radial artery to the ramus artery, reverse saphenous vein graft to the diagonal artery, reverse saphenous vein graft to posterior descending artery, left lower extremity endoscopic vein harvesting, left radial artery endoscopic harvesting, intraoperative transesophageal echocardiogram and epi-aortic scanning. Postoperative re-intubation for airway protection, prolonged mechanical ventilation. Postoperative ischemic stroke, a potential outcome of surgery. Leukocytosis, unknown source as sputum culture, blood culture, urine culture all negative. POD #5 placement of tracheostomy. POD #4 placement of percutaneous endoscopic gastrostomy tube. Patient's currently lying in bed with his eyes closed. He opens up his eyes with verbal stimuli, following simple commands appropriately with his right side. He is giving a thumbs up to command and shaking his head yes and no appropriately to questions. He is moving his right arm and leg and not moving his left side with verbal stimuli. He attempts to withdrawal from noxious stimuli to his left side. No acute distress. His pupils are equal, round and reactive to light. Objective - Vital Signs Vital signs: Vital Signs Temp 99.2 F 10/23/16 04:00 Pulse 71 10/23/16 07:00 Resp 23 10/23/16 07:00 BP 134/71 10/23/16 07:00 Pulse Ox 97 10/23/16 07:00 Intake & Output 10/22/16 10/23/16 10/23/16 18:59 06:59 18:59 Intake Total 0601.078 5096.773 115 Output Total 1020 970 100 Balance 723.916 709.773 15 Weight 93.4 kg Intake: IV 305.0 340 20 0.9 at KVO 40 LR 240 240 20 Sodium Ferric Gluconat- 100 Sucrose 125 mg In Sodium Chloride 0.9% 100 ml @ 100 mls/hr IVPB Q24H [facility] Rx#:[id number] zosyn 25.0 Intake, IV Titration 108.916 74.773 Amount Insulin Regular 100 unit 108.916 74.773 In Sodium Chloride 0.9% 100 ml @ Per Protocol IV .Q0M [facility] Rx#:[id number] Tube Feeding 930 935 55 Other 400 330 40 Output: Urine 1020 970 100 Other: Voiding Method Indwelling Catheter Indwelling Catheter # Bowel Movements 1 ABP, PAP, CO, CI - Last Documented Arterial Blood Pressure 156/62 Pulmonary Artery Pressure 27/13 Cardiac Output 9.2 Cardiac Index 4.5 - Constitutional General appearance: Present: no acute distress - EENT Eyes: Present: PERRLA, normal appearance ENT: Present: hearing grossly normal - Neck Details: No JVD. - Respiratory Details: Lung sounds with few scattered rhonchi throughout, diminished to his bilateral bases. Respirations are symmetrical and nonlabored with mechanical ventilator support. Current ventilator settings are as follows: AC 18, TV 500, FiO2 40%. Oxygen saturations are 97% with a current ventilator settings. #8 Shiley fenestrated trach midline and intact, sutures remain in place. - Cardiovascular Details: Regular rhythm and rate. S1 and S2 present, negative for S3, gallop or murmur. Sternum is stable. Heart hugger in place and is unable to use a heart hugger appropriately. Trace generalized edema. Right brachial PICC line present and patent. Knee-high NNEKA hose and sequential compression devices in place to his bilateral lower extremities. - Gastrointestinal Gastrointestinal Comment(s): Abdomen is soft, nontender and nondistended. No guarding or rigidity. PEG tube in place with vital high-protein 1.2 infusing at a goal rate of 55 mL per hour. Active bowel sounds to all 4 abdominal quadrants. Positive bowel movement 10/23/2016. - Genitourinary Genitourinary Comment(s): Urine output adequate, Rosario catheter for accurate I&O. Clear yellow urine. - Integumentary Integumentary Comment(s): Anterior chest incision well approximated , dressing is clean dry and intact. Left lower extremity EVH site well approximated. Ecchymotic area just distal to his left EVH harvest site. Left radial artery site well approximated with Dermabond dressing. Positive ulnar pulse palpable to his left arm. - Neurologic Neurologic Comment(s): Spontaneous movement to his right upper and lower extremities. following simple commands to his right extremities appropriately. He is shaking his head yes and no appropriately to questions. Responds to noxious stimuli to his left extremities. No spontaneous movement to his left upper and lower extremities. Positive Babinski to his left. - Allied health notes Allied health notes reviewed: nursing - Labs CBC & Chem 7: 10/23/16 04:10 10/23/16 04:10 Labs: Abnormal Lab Results - Last 24 Hours (Table) 10/22/16 10/22/16 10/22/16 Range/Units 09:00 09:51 11:10 RBC (4.30-5.90) m/uL Hgb (13.0-17.5) gm/dL Hct (39.0-53.0) % RDW (11.5-15.5) % Neutrophils # (1.3-7.7) k/uL Potassium (3.5-5.1) mmol/L Chloride (98-107) mmol/L BUN (9-20) mg/dL Glucose (74-99) mg/dL POC Glucose (mg/dL) 137 H 152 H 153 H (75-99) mg/dL Total Protein (6.3-8.2) g/dL Albumin (3.5-5.0) g/dL 10/22/16 10/22/16 10/22/16 Range/Units 11:58 12:56 13:56 RBC (4.30-5.90) m/uL Hgb (13.0-17.5) gm/dL Hct (39.0-53.0) % RDW (11.5-15.5) % Neutrophils # (1.3-7.7) k/uL Potassium (3.5-5.1) mmol/L Chloride (98-107) mmol/L BUN (9-20) mg/dL Glucose (74-99) mg/dL POC Glucose (mg/dL) 143 H 137 H 136 H (75-99) mg/dL Total Protein (6.3-8.2) g/dL Albumin (3.5-5.0) g/dL 10/22/16 10/22/16 10/22/16 Range/Units 15:00 16:05 16:53 RBC (4.30-5.90) m/uL Hgb (13.0-17.5) gm/dL Hct (39.0-53.0) % RDW (11.5-15.5) % Neutrophils # (1.3-7.7) k/uL Potassium (3.5-5.1) mmol/L Chloride (98-107) mmol/L BUN (9-20) mg/dL Glucose (74-99) mg/dL POC Glucose (mg/dL) 124 H 127 H 130 H (75-99) mg/dL Total Protein (6.3-8.2) g/dL Albumin (3.5-5.0) g/dL 10/22/16 10/22/16 10/22/16 Range/Units 18:03 18:51 19:53 RBC (4.30-5.90) m/uL Hgb (13.0-17.5) gm/dL Hct (39.0-53.0) % RDW (11.5-15.5) % Neutrophils # (1.3-7.7) k/uL Potassium (3.5-5.1) mmol/L Chloride (98-107) mmol/L BUN (9-20) mg/dL Glucose (74-99) mg/dL POC Glucose (mg/dL) 118 H 109 H 143 H (75-99) mg/dL Total Protein (6.3-8.2) g/dL Albumin (3.5-5.0) g/dL 10/22/16 10/22/16 10/22/16 Range/Units 20:51 22:09 23:15 RBC (4.30-5.90) m/uL Hgb (13.0-17.5) gm/dL Hct (39.0-53.0) % RDW (11.5-15.5) % Neutrophils # (1.3-7.7) k/uL Potassium (3.5-5.1) mmol/L Chloride (98-107) mmol/L BUN (9-20) mg/dL Glucose (74-99) mg/dL POC Glucose (mg/dL) 150 H 147 H 128 H (75-99) mg/dL Total Protein (6.3-8.2) g/dL Albumin (3.5-5.0) g/dL 10/23/16 10/23/16 10/23/16 Range/Units 00:20 01:51 03:07 RBC (4.30-5.90) m/uL Hgb (13.0-17.5) gm/dL Hct (39.0-53.0) % RDW (11.5-15.5) % Neutrophils # (1.3-7.7) k/uL Potassium (3.5-5.1) mmol/L Chloride (98-107) mmol/L BUN (9-20) mg/dL Glucose (74-99) mg/dL POC Glucose (mg/dL) 128 H 104 H 141 H (75-99) mg/dL Total Protein (6.3-8.2) g/dL Albumin (3.5-5.0) g/dL 10/23/16 10/23/16 10/23/16 Range/Units 04:04 04:10 04:10 RBC 2.92 L (4.30-5.90) m/uL Hgb 8.7 L (13.0-17.5) gm/dL Hct 26.9 L (39.0-53.0) % RDW 19.2 H (11.5-15.5) % Neutrophils # 8.6 H (1.3-7.7) k/uL Potassium 3.4 L (3.5-5.1) mmol/L Chloride 108 H (98-107) mmol/L BUN 29 H (9-20) mg/dL Glucose 147 H (74-99) mg/dL POC Glucose (mg/dL) 156 H (75-99) mg/dL Total Protein 5.1 L (6.3-8.2) g/dL Albumin 2.7 L (3.5-5.0) g/dL 10/23/16 10/23/16 10/23/16 Range/Units 04:58 06:11 06:52 RBC (4.30-5.90) m/uL Hgb (13.0-17.5) gm/dL Hct (39.0-53.0) % RDW (11.5-15.5) % Neutrophils # (1.3-7.7) k/uL Potassium (3.5-5.1) mmol/L Chloride (98-107) mmol/L BUN (9-20) mg/dL Glucose (74-99) mg/dL POC Glucose (mg/dL) 142 H 150 H 146 H (75-99) mg/dL Total Protein (6.3-8.2) g/dL Albumin (3.5-5.0) g/dL 10/23/16 Range/Units 07:47 RBC (4.30-5.90) m/uL Hgb (13.0-17.5) gm/dL Hct (39.0-53.0) % RDW (11.5-15.5) % Neutrophils # (1.3-7.7) k/uL Potassium (3.5-5.1) mmol/L Chloride (98-107) mmol/L BUN (9-20) mg/dL Glucose (74-99) mg/dL POC Glucose (mg/dL) 132 H (75-99) mg/dL Total Protein (6.3-8.2) g/dL Albumin (3.5-5.0) g/dL - Imaging and Cardiology Chest x-ray: report reviewed, image reviewed Assessment and Plan (1) Non-STEMI (non-ST elevated myocardial infarction) Status: Acute (2) Coronary artery disease Status: Chronic (3) Hypertension Status: Chronic (4) COPD (chronic obstructive pulmonary disease) Status: Chronic (5) Uncontrolled type 2 diabetes mellitus Status: Acute (6) GERD (gastroesophageal reflux disease) Status: Acute (7) Hemoglobin A1C greater than 9%, indicating poor diabetic control Status: Acute (8) CHF NYHA class III (symptoms with mildly strenuous activities) Status: Acute (9) Acute left-sided weakness Status: Acute (10) Acute ischemic stroke Status: Acute (11) Bipolar 1 disorder Status: Acute (12) Drug addiction in remission Status: Acute (13) Left hemiparesis Status: Acute (14) Recovering alcoholic in remission Status: Acute (15) Tobacco dependence in remission Status: Acute (16) Tracheostomy in place Status: Acute Plan: 1. Continue aspirin, statin, Plavix, heparin subcu, beta caleb. Will maximize beta caleb therapy as tolerated. 2. Continue oral Cardizem for radial artery spasm prevention. 3. Ventilator management per pulmonary services. Daily CPAP trials to exercise lungs, diaphragm. 4. Antibiotic have been discontinued yesterday per pulmonology services recommendations. Cultures negative, afebrile. 5. Tube feeding vital high-protein for nutrition support per his PEG tube. Goal rate 55 mL per hour. 6. Insulin management per primary care service. 7. GI/DVT prophylaxis. 8. Will monitor daily labs, x-rays. 9. Keep Rosario catheter for strict accurate I and O's. Rosario changed 2016. 10. Discharge planning in progress. [facility] Time with Patient: Greater than 30 <Ramesh Klein - Last Filed: 10/23/16 13:08> Objective - Vital Signs Vital signs: Vital Signs Temp 99.4 F 10/23/16 12:00 Pulse 72 10/23/16 12:28 Resp 24 10/23/16 12:00 BP 138/73 10/23/16 12:00 Pulse Ox 98 10/23/16 12:00 Intake & Output 10/22/16 10/23/16 10/23/16 18:59 06:59 18:59 Intake Total 9860.618 2218.773 868.309 Output Total 1020 970 525 Balance 723.916 709.773 343.309 Weight 93.4 kg Intake: IV 305.0 340 120 0.9 at KVO 40 LR 240 240 120 Sodium Ferric Gluconat- 100 Sucrose 125 mg In Sodium Chloride 0.9% 100 ml @ 100 mls/hr IVPB Q24H [facility] Rx#:[id number] zosyn 25.0 Intake, IV Titration 108.916 74.773 23.309 Amount Insulin Regular 100 unit 108.916 74.773 23.309 In Sodium Chloride 0.9% 100 ml @ Per Protocol IV .Q0M [facility] Rx#:[id number] Tube Feeding 930 935 495 Other 400 330 230 Output: Urine 1020 970 525 Other: Voiding Method Indwelling Catheter Indwelling Catheter Indwelling Catheter # Bowel Movements 1 ABP, PAP, CO, CI - Last Documented Arterial Blood Pressure 156/62 Pulmonary Artery Pressure 27/13 Cardiac Output 9.2 Cardiac Index 4.5 - Labs CBC & Chem 7: 10/23/16 04:10 10/23/16 09:20 Labs: Abnormal Lab Results - Last 24 Hours (Table) 10/22/16 10/22/16 10/22/16 Range/Units 13:56 15:00 16:05 RBC (4.30-5.90) m/uL Hgb (13.0-17.5) gm/dL Hct (39.0-53.0) % RDW (11.5-15.5) % Neutrophils # (1.3-7.7) k/uL Potassium (3.5-5.1) mmol/L Chloride (98-107) mmol/L BUN (9-20) mg/dL Glucose (74-99) mg/dL POC Glucose (mg/dL) 136 H 124 H 127 H (75-99) mg/dL Total Protein (6.3-8.2) g/dL Albumin (3.5-5.0) g/dL 10/22/16 10/22/16 10/22/16 Range/Units 16:53 18:03 18:51 RBC (4.30-5.90) m/uL Hgb (13.0-17.5) gm/dL Hct (39.0-53.0) % RDW (11.5-15.5) % Neutrophils # (1.3-7.7) k/uL Potassium (3.5-5.1) mmol/L Chloride (98-107) mmol/L BUN (9-20) mg/dL Glucose (74-99) mg/dL POC Glucose (mg/dL) 130 H 118 H 109 H (75-99) mg/dL Total Protein (6.3-8.2) g/dL Albumin (3.5-5.0) g/dL 10/22/16 10/22/16 10/22/16 Range/Units 19:53 20:51 22:09 RBC (4.30-5.90) m/uL Hgb (13.0-17.5) gm/dL Hct (39.0-53.0) % RDW (11.5-15.5) % Neutrophils # (1.3-7.7) k/uL Potassium (3.5-5.1) mmol/L Chloride (98-107) mmol/L BUN (9-20) mg/dL Glucose (74-99) mg/dL POC Glucose (mg/dL) 143 H 150 H 147 H (75-99) mg/dL Total Protein (6.3-8.2) g/dL Albumin (3.5-5.0) g/dL 10/22/16 10/23/16 10/23/16 Range/Units 23:15 00:20 01:51 RBC (4.30-5.90) m/uL Hgb (13.0-17.5) gm/dL Hct (39.0-53.0) % RDW (11.5-15.5) % Neutrophils # (1.3-7.7) k/uL Potassium (3.5-5.1) mmol/L Chloride (98-107) mmol/L BUN (9-20) mg/dL Glucose (74-99) mg/dL POC Glucose (mg/dL) 128 H 128 H 104 H (75-99) mg/dL Total Protein (6.3-8.2) g/dL Albumin (3.5-5.0) g/dL 10/23/16 10/23/16 10/23/16 Range/Units 03:07 04:04 04:10 RBC 2.92 L (4.30-5.90) m/uL Hgb 8.7 L (13.0-17.5) gm/dL Hct 26.9 L (39.0-53.0) % RDW 19.2 H (11.5-15.5) % Neutrophils # 8.6 H (1.3-7.7) k/uL Potassium (3.5-5.1) mmol/L Chloride (98-107) mmol/L BUN (9-20) mg/dL Glucose (74-99) mg/dL POC Glucose (mg/dL) 141 H 156 H (75-99) mg/dL Total Protein (6.3-8.2) g/dL Albumin (3.5-5.0) g/dL 10/23/16 10/23/16 10/23/16 Range/Units 04:10 04:58 06:11 RBC (4.30-5.90) m/uL Hgb (13.0-17.5) gm/dL Hct (39.0-53.0) % RDW (11.5-15.5) % Neutrophils # (1.3-7.7) k/uL Potassium 3.4 L (3.5-5.1) mmol/L Chloride 108 H (98-107) mmol/L BUN 29 H (9-20) mg/dL Glucose 147 H (74-99) mg/dL POC Glucose (mg/dL) 142 H 150 H (75-99) mg/dL Total Protein 5.1 L (6.3-8.2) g/dL Albumin 2.7 L (3.5-5.0) g/dL 10/23/16 10/23/16 10/23/16 Range/Units 06:52 07:47 11:55 RBC (4.30-5.90) m/uL Hgb (13.0-17.5) gm/dL Hct (39.0-53.0) % RDW (11.5-15.5) % Neutrophils # (1.3-7.7) k/uL Potassium (3.5-5.1) mmol/L Chloride (98-107) mmol/L BUN (9-20) mg/dL Glucose (74-99) mg/dL POC Glucose (mg/dL) 146 H 132 H 170 H (75-99) mg/dL Total Protein (6.3-8.2) g/dL Albumin (3.5-5.0) g/dL Assessment and Plan Plan: The patient was seen and examined. I agree with the above assessment and plan. He appears to be tolerating CPAP this morning. He is receiving his tube feeds. He is otherwise hemodynamically stable. He is moving his right side more today. [facility]. I spoke with the patient's sister who is at the bedside. All of her questions were answered.
[2016-10-23] MEDS: INSULIN LISPRO (humaLOG) 300 UNIT/3 ML VIAL SQ SCH ×4 (08:36→20:47)
[2016-10-23] MEDS: IPRATROPIUM-ALBUTEROL 3 ML NEB INHALATION SCH ×4 (08:38→19:27)
--- NOTE | 2016-10-23 09:03 | P.PN ---
Progress Note - Text Patient receiving tube feeds at goal. His PEG site is clean.
--- NOTE | 2016-10-23 10:06 | PN ---
PROGRESS NOTE SUBJECTIVE: This is a white male in the ICU, tracheostomy placement. He is moving his arms and legs a little bit. He is on mechanical ventilation with assist control, FiO2 is 40%. Tidal volume 500, respiratory rate 18. He is getting mechanical ventilation through his trach. He is on 0 PEEP. Tolerate feeds. He is able to squeeze his right hand. Wiggle his right side toes. Occasionally opens his eyes spontaneously. He will go to [facility] on Monday. All consults and labs are reviewed. Sugars are better. Lungs show diminished bases of lung sounds. Heart are S1, S2. Abdomen is soft. Extremities: No cyanosis, clubbing or edema. Skin no rashes. HEENT is normocephalic, atraumatic. Neck is supple. No mass. mid 100s. ASSESSMENT: 1. Severe chronic obstructive pulmonary disease, hemoptysis. 2. Postop day four tracheostomy. 3. Bipolar. 4. Postop PEG tube placement. Continue on IV Zosyn and maintain oxygen levels better, maintain CPAP trials. No growth so far on the cultures. Pulmonary and cardiac notes reviewed. MMODL / IJN: [id number] /
[2016-10-23 11:56] LABS: Glucose,Whole Blood 170 mg/dL (75-99)
--- NOTE | 2016-10-23 13:52 | PN ---
PROGRESS NOTE A 50-year-old gentleman who had a perioperative stroke has been trached and pegged and had some neurological activity. He apparently opened his eyes. His blood pressure is well controlled. Otherwise there is no significant change. Remains in sinus rhythm. EXAM: On exam patient is sedated and not responsive. Vital signs are stable. There is no jugular venous distention. Chest exam reveals diminished air entry at the bases. Heart exam reveals first and second heart sounds. No gallop. No murmur. Exam of extremities did not reveal any edema. Peripheral pulses are felt. LABS: Creatinine of 0.7. ASSESSMENT: 1. Coronary artery disease, status post CABG. 2. Perioperative stroke. 3. Vent requiring respiratory failure. PLAN: Patient will continue with current medications. Prognosis is guarded. MMODL / IJN: [id number] /
[2016-10-23 15:56] LABS: Glucose,Whole Blood 226 mg/dL (75-99)
--- NOTE | 2016-10-23 16:28 | PN ---
PROGRESS NOTE SUBJECTIVE: This is a 50-year-old, white male, who was admitted with non STEMI transferred from [facility] status post bypass surgery. He has ischemic cardiomyopathy, status post bypass x4. Cardiovascular: S1, S2. Lungs: Wheeze x4. Hematologic: Negative Homans. Psych: Fair mood and affect. Neurologic: Alert and oriented x0. He is resting comfortably with trach collar with respiratory treatments through the trach collar. ASSESSMENT: Insulin independent diabetes mellitus, status post CABG surgery. Tube feedings are given to the patient. He remains on Accu-Chek protocol and Levemir 10 b.i.d. If his glucose remains high over 300, we will switch him to 5 units plus scale. Otherwise will continue on current treatment of Levemir 10 b.i.d. with a.c. and at bedtime protocol only. ICU time 30 minutes. ALFA / DOMI: [id number] /
[2016-10-23] MEDS: LACTATED RINGERS 1,000 ML IV SCH (17:03)
[2016-10-23] MEDS: SODIUM FERRIC GLUCONAT-SUCROSE 125 MG in SODIUM CHLORIDE 0.9% 100 ML IVPB SCH (17:41)
--- NOTE | 2016-10-23 17:57 | P.PN ---
Subjective Interval history 10/11/16- patient is being seen examined and evaluated on the intensive care unit. Patient has postop day 1 after CABG 4 with cardiothoracic surgeon. Patient was successfully extubated approximately for 20 this morning. Currently the patient is resting up in bed on 6 L of supplemental oxygen. Patient appears somewhat lethargic. Currently he has a left chest tube as well as mediastinal chest tube. Currently he has been AV epicardial pacemaker connected to a generator with a VVI mode with backup rate of 60 BPM. He has a right radial art line, right IJ. Per the nursing staff he has an ineffective cough as well as an ineffective swallow, he had some difficulty with swallowing earlier they're going to reattempt a swallow evaluation again this afternoon. Patient does have some shortness of breath with exertion, is noted to have some lethargy. 10/12/16- see Dr. Ramírez notes 10/13/16- patient being seen examined and evaluated in the intensive care unit. The patient was reintubated yesterday, for increased secretions as well as hyperventilation. Currently the patient is on assist control mode with a respiratory rate of 22, tidal volume 400, FiO2 50% and 0 PEEP. Continues on propofol for sedation. Tube feeds were also initiated yesterday and the patient is tolerating these well. Patient does have a left-sided internal jugular triple-lumen catheter as well as a right arterial line. Patient continues to exhibit left-sided neglect and neurology is on consult for possible stroke. Chest x-ray from this morning was reviewed and shows stable lines and tubes, cardiomegaly, postsurgical changes of the chest and scattered subsegmental atelectasis. 10/14/16-10/17/[address] Olmos's notes as he was covering 10/18/16- See Dr. Ramírez's note 10/19/16- patient is being seen in evaluated and examined today on the intensive care unit. The patient did undergo a tracheostomy placement yesterday. Currently he has a #8 Shiley, is on mechanical ventilation via the trach with assist control mode with a respiratory rate of 18 tidal volume of 500, FiO2 of 40%. Agent is scheduled to go for a PEG tube today. He continues on propofol for sedation. Patient did have some weaning trial yesterday and was able to be maintained on CPAP mode for approximately 30 minutes. Patient will have another weaning trial today after PEG tube insertion. Urine output has been good. During the sedation holiday the patient is also noted to have some continued left-sided weakness/neglect. 10/20/16- patient is being seen in evaluated and examined today given the intensive care on rounds. Currently he has on mechanical ventilation via trach with assist control mode with a respiratory rate of 18, tidal volume of 500, FiO2 40% and 0 PEEP. The patient is off of sedation and will undergoing CPAP and trials. Patient did have his PEG tube placement yesterday. Chest x- ray this morning was reviewed and shows a stable portable chest pleural effusion is unchanged and there is no change in bibasilar opacities. Labs were reviewed WBC 16.7, hemoglobin 8.4, platelet 331, sodium 145, chloride 110, potassium 3.6, BUN 27, creatinine 0.81 magnesium 2.2. awaiting clearance from surgical to use PEG tube. 10/21/16- patient has been seen examined and evaluated today in the intensive care on rounds. Currently the patient is hooked up to mechanical ventilation via trach with assist control mode, currently of 18, tidal volume of 500, FiO2 40% and 0 PEEP. Apparently CPAP trials were not able to be completed yesterday , however will be attempted today. Patient did undergo PEG tube insertion yesterday and tube feedings have been initiated. On examination the patient is currently resting in bed he is able to move his right lower extremity and right upper extremity with weakness. Patient attempts to open eyes however is slow to respond. Patient can follow commands on the right side only, able to wiggle his right toes and squeeze hands with his right hand. Discharge planning is in place [facility] 10/22/16- patient seen seen examined and evaluated today in the intensive care on rounds. Patient continues on mechanical ventilation without sedation via trach. Current ventilator settings are assist control mode with a rate of 18, tidal volume of 500, FiO2 40% and 0 PEEP. We will continue with CPAP trials today. Patient is tolerating tube feeds well. Patient is able to follow on the right side, he is able to squeeze hand on the right side and wiggle his right-sided toes. Occasionally opens his eyes spontaneously. Discharge planning continues to be set up for [facility] with a possible transfer on Monday. All labs and reports have been reviewed. 10/23/16- patient is being seen examined and evaulated today on rounds. [facility]. Will trial the patient on cpap for the rest of the day if tolerated then switch back to AC mode on vent. Patient continues to have some thin moderate secreations from trach. Tolerating tube feds well. Chest xray shows improvement. Patient is following commands and can give a "thumbs" up with his right hand. All labs and reports reviewed. Objective - Vital Signs Vital signs: Vital Signs Temp 99.4 F 10/23/16 16:00 Pulse 72 10/23/16 17:00 Resp 24 10/23/16 17:00 BP 136/73 10/23/16 17:00 Pulse Ox 98 10/23/16 17:00 Intake & Output 10/22/16 10/23/16 10/23/16 18:59 06:59 18:59 Intake Total 0638.281 7641.773 1433.309 Output Total 1020 970 860 Balance 723.916 709.773 573.309 Weight 93.4 kg Intake: IV 305.0 340 220 0.9 at KVO 40 LR 240 240 220 Sodium Ferric Gluconat- 100 Sucrose 125 mg In Sodium Chloride 0.9% 100 ml @ 100 mls/hr IVPB Q24H [facility] Rx#:[id number] zosyn 25.0 Intake, IV Titration 108.916 74.773 23.309 Amount Insulin Regular 100 unit 108.916 74.773 23.309 In Sodium Chloride 0.9% 100 ml @ Per Protocol IV .Q0M [facility] Rx#:[id number] Tube Feeding 930 935 880 Other 400 330 310 Output: Urine 1020 970 860 Other: Voiding Method Indwelling Catheter Indwelling Catheter Indwelling Catheter # Bowel Movements 1 ABP, PAP, CO, CI - Last Documented Arterial Blood Pressure 156/62 Pulmonary Artery Pressure 27/13 Cardiac Output 9.2 Cardiac Index 4.5 - Exam GENERAL EXAM: On mechanical ventilation, sedation has been turned off HEAD: Normocephalic. EYES: Normal reaction of pupils, equal size. NOSE: Clear with pink turbinates. THROAT: No erythema or exudates. NECK: No masses, no JVD. #8 Shiley trach present, dressing clean dry and intact CHEST: No chest wall deformity. The anterior chest wall incision with dressing clean dry and intact. LUNGS: Lungs are noted to be coarse throughout Bases diminished. CVS: S1 and S2 normal with no audible mumurs, regular rhythm. ABDOMEN: No hepatosplenomegaly, normal bowel sounds, no guarding or rigidity. PEG tube in place, vital high-protein infusing EXTREMITIES: trace edema noted, pedal pulses palpable. Left lower extremity site clean dry and intact, left radial harvest site clean dry and intact. SKIN: No rashes CENTRAL NERVOUS SYSTEM: On mechanical ventilation, withdraws from painful stimuli, during sedation holiday the patient is noted to have a grade 2 out of 5 upper extremity neglect right side remains 5 out of 5. Positive for left- sided Babinski - Labs CBC & Chem 7: 10/23/16 04:10 10/23/16 09:20 Labs: Abnormal Lab Results - Last 24 Hours (Table) 10/22/16 10/22/16 10/22/16 Range/Units 18:03 18:51 19:53 RBC (4.30-5.90) m/uL Hgb (13.0-17.5) gm/dL Hct (39.0-53.0) % RDW (11.5-15.5) % Neutrophils # (1.3-7.7) k/uL Potassium (3.5-5.1) mmol/L Chloride (98-107) mmol/L BUN (9-20) mg/dL Glucose (74-99) mg/dL POC Glucose (mg/dL) 118 H 109 H 143 H (75-99) mg/dL Total Protein (6.3-8.2) g/dL Albumin (3.5-5.0) g/dL 10/22/16 10/22/16 10/22/16 Range/Units 20:51 22:09 23:15 RBC (4.30-5.90) m/uL Hgb (13.0-17.5) gm/dL Hct (39.0-53.0) % RDW (11.5-15.5) % Neutrophils # (1.3-7.7) k/uL Potassium (3.5-5.1) mmol/L Chloride (98-107) mmol/L BUN (9-20) mg/dL Glucose (74-99) mg/dL POC Glucose (mg/dL) 150 H 147 H 128 H (75-99) mg/dL Total Protein (6.3-8.2) g/dL Albumin (3.5-5.0) g/dL 10/23/16 10/23/16 10/23/16 Range/Units 00:20 01:51 03:07 RBC (4.30-5.90) m/uL Hgb (13.0-17.5) gm/dL Hct (39.0-53.0) % RDW (11.5-15.5) % Neutrophils # (1.3-7.7) k/uL Potassium (3.5-5.1) mmol/L Chloride (98-107) mmol/L BUN (9-20) mg/dL Glucose (74-99) mg/dL POC Glucose (mg/dL) 128 H 104 H 141 H (75-99) mg/dL Total Protein (6.3-8.2) g/dL Albumin (3.5-5.0) g/dL 10/23/16 10/23/16 10/23/16 Range/Units 04:04 04:10 04:10 RBC 2.92 L (4.30-5.90) m/uL Hgb 8.7 L (13.0-17.5) gm/dL Hct 26.9 L (39.0-53.0) % RDW 19.2 H (11.5-15.5) % Neutrophils # 8.6 H (1.3-7.7) k/uL Potassium 3.4 L (3.5-5.1) mmol/L Chloride 108 H (98-107) mmol/L BUN 29 H (9-20) mg/dL Glucose 147 H (74-99) mg/dL POC Glucose (mg/dL) 156 H (75-99) mg/dL Total Protein 5.1 L (6.3-8.2) g/dL Albumin 2.7 L (3.5-5.0) g/dL 10/23/16 10/23/16 10/23/16 Range/Units 04:58 06:11 06:52 RBC (4.30-5.90) m/uL Hgb (13.0-17.5) gm/dL Hct (39.0-53.0) % RDW (11.5-15.5) % Neutrophils # (1.3-7.7) k/uL Potassium (3.5-5.1) mmol/L Chloride (98-107) mmol/L BUN (9-20) mg/dL Glucose (74-99) mg/dL POC Glucose (mg/dL) 142 H 150 H 146 H (75-99) mg/dL Total Protein (6.3-8.2) g/dL Albumin (3.5-5.0) g/dL 10/23/16 10/23/16 10/23/16 Range/Units 07:47 11:55 15:53 RBC (4.30-5.90) m/uL Hgb (13.0-17.5) gm/dL Hct (39.0-53.0) % RDW (11.5-15.5) % Neutrophils # (1.3-7.7) k/uL Potassium (3.5-5.1) mmol/L Chloride (98-107) mmol/L BUN (9-20) mg/dL Glucose (74-99) mg/dL POC Glucose (mg/dL) 132 H 170 H 226 H (75-99) mg/dL Total Protein (6.3-8.2) g/dL Albumin (3.5-5.0) g/dL Assessment and Plan Plan: Assessment Acute hypoxic respiratory failure, small postoperative bilateral pleural effusions Probable CVA with left-sided hemiparesis, cannot be excluded, neurology on consult. Postop day 13, CABG 4 Acute WI and diffuse coronary artery disease Hypertension hypertensive cardiovascular disease Dyslipidemia Diabetes mellitus poorly controlled type II with complications and sequelae Severe COPD and emphysema Hemoptysis likely related to bronchial inflammation better under control no active process noted now Postop day 5, tracheostomy placement History of Bipolar disorder Postop day 4 of PEG tube placement Plan [facility]. Patient is post op day 13 after CABG 4. Patient is postop day 5 of tracheostomy placement. Postop day 4 of PEG tube placement. Patient should remain on mechanical ventilation, with CPAP and trials. We will trail cpap throughout the day as tolerated and switch back to AC mode at night. will trial trach collar tomorrow. Labs and reports have been reviewed. Medications have been reviewed and will be continued as ordered. Continue with pulmonary hygiene , and supportive care. . Supplemental oxygen to maintain oxygen saturations of 92% or better. Continue nebulizer treatments. GI and DVT prophylaxis. We will continue to monitor labs/results and adjust treatment as necessary. Further recommendations pending. I performed an examination of the patient and discussed their management with the nurse practitioner. I have reviewed the nurse practitioner's note and agree with the documented findings and plan of care.
[2016-10-23 19:57] LABS: Glucose,Whole Blood 206 mg/dL (75-99)
[2016-10-23] MEDS: SENNOSIDES-DOCUSATE SODIUM 1 EACH TAB PO SCH (22:04)
[2016-10-24 00:57] LABS: Glucose,Whole Blood 219 mg/dL (75-99)
[2016-10-24] MEDS: HEPARIN SODIUM,PORCINE 5,000 UNIT/ML 1 ML VIAL SQ SCH ×3 (01:49→16:58)
[2016-10-24] MEDS: INSULIN LISPRO (humaLOG) 300 UNIT/3 ML VIAL SQ SCH ×5 (01:49→16:58)
[2016-10-24 04:08] LABS: Glucose,Whole Blood 228 mg/dL (75-99)
[2016-10-24 05:54] LABS: Anisocytosis Slight; Basophils % (A) 0 %; CHCM 32.6; Eosinophils # (A) 0.1 k/uL (0-0.7); Eosinophils % (A) 1 %; HDW 4.32; HGB 8.5 gm/dL (13.0-17.5); Hypochromasia Moderate; Luc # (Auto) 0.17; Luc % (Auto) 2; Lymphocytes % (A) 10 %; MCH 29.4 pg (25.0-35.0); MCHC 31.5 g/dL (31.0-37.0); MCV 93.3 fL (80.0-100.0); Macrocytosis Slight; Mean Platelet Volume 8.2; Monocytes # (A) 0.5 k/uL (0-1.0); Monocytes % (A) 5 %; Neutrophils % (A) 82 %; Poikilocytosis Moderate; RDW 19.7 % (11.5-15.5); WBC 9.8 k/uL (3.8-10.6); WBC (Perox) 10.06
[2016-10-24 06:36] LABS: ALT 45 U/L (21-72); AST 22 U/L (17-59); Alkaline Phosphatase 58 U/L (38-126); Anion Gap 5 mmol/L; Blood Urea Nitrogen 30 mg/dL (9-20); Calcium 8.8 mg/dL (8.4-10.2); Carbon Dioxide 30 mmol/L (22-30); Chloride 107 mmol/L (98-107); Glucose 214 mg/dL (74-99); Magnesium 2.2 mg/dL (1.6-2.3); Non-African American GFR(MDRD) >60 (>60 ml/min/1.73 sqM); Phosphorous 3.5 mg/dL (2.5-4.5); Potassium 4.1 mmol/L (3.5-5.1); Sodium 142 mmol/L (137-145); Total Bilirubin 0.6 mg/dL (0.2-1.3); Total Protein 4.9 g/dL (6.3-8.2)
[2016-10-24] MEDS: IPRATROPIUM-ALBUTEROL 3 ML NEB INHALATION SCH ×3 (07:18→15:25)
[2016-10-24 08:07] LABS: Glucose,Whole Blood 223 mg/dL (75-99)
[2016-10-24] MEDS: ATORVASTATIN 40 MG TAB PO SCH (08:53)
[2016-10-24] MEDS: ASPIRIN 325 MG TAB PO SCH (08:53)
[2016-10-24] MEDS: CHLORHEXIDINE GLUCONATE 15 ML CUP MUCOUS MEM SCH (08:53)
[2016-10-24] MEDS: PANTOPRAZOLE 40 MG/10 ML VIAL IVP SCH (08:54)
[2016-10-24] MEDS: METOPROLOL TARTRATE 50 MG TAB PO SCH (08:54)
[2016-10-24] MEDS: CLOPIDOGREL 75 MG TAB PO SCH (08:54)
[2016-10-24] MEDS: DILTIAZEM ORAL 30 MG TAB PO SCH ×3 (08:54→17:00)
[2016-10-24] MEDS: INSULIN GLARGINE 100 UNIT/ML 10 ML VIAL SQ SCH (08:56)
--- NOTE | 2016-10-24 09:23 | P.PN ---
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 Family history of coronary artery disease. POD #14 urgent coronary artery bypass graft surgery 4 vessels with the left internal mammary artery to the left anterior descending artery, left radial artery to the ramus artery, reverse saphenous vein graft to the diagonal artery , reverse saphenous vein graft to posterior descending artery, endoscopic vein harvest left greater saphenous vein, endoscopic harvest of left radial artery, intraoperative transesophageal echocardiogram and epi-aortic scanning. Postoperative re-intubation for airway protection, prolonged mechanical ventilation. Postoperative ischemic stroke, a potential outcome of surgery. Leukocytosis, unknown source as sputum culture, blood culture, urine culture all negative. POD #6 placement of tracheostomy. POD #5 placement of percutaneous endoscopic gastrostomy tube. Patient's currently laying in the bed in no acute distress. Patient is moving his right side independently and following commands on the right side. Left side does withdraw to painful stimuli. Patient is currently off sedation. Father at the bedside, updated with the plan of care. Objective - Vital Signs Vital signs: Vital Signs Temp 97.3 F L 10/24/16 05:00 Pulse 72 10/24/16 07:51 Resp 25 H 10/24/16 07:00 BP 117/65 10/24/16 07:00 Pulse Ox 100 10/24/16 07:00 Intake & Output 10/23/16 10/24/16 10/24/16 18:59 06:59 18:59 Intake Total 3253.840 3157 75 Output Total 985 770 95 Balance 553.309 615 -20 Weight 88.9 kg Intake: IV 240 340 20 LR 240 240 20 Sodium Ferric Gluconat- 100 Sucrose 125 mg In Sodium Chloride 0.9% 100 ml @ 100 mls/hr IVPB Q24H [facility] Rx#:[id number] Intake, IV Titration 23.309 Amount Insulin Regular 100 unit 23.309 In Sodium Chloride 0.9% 100 ml @ Per Protocol IV .Q0M [facility] Rx#:[id number] Tube Feeding 935 935 55 Other 340 110 Output: Urine 985 770 95 Other: Voiding Method Indwelling Catheter Indwelling Catheter ABP, PAP, CO, CI - Last Documented Arterial Blood Pressure 156/62 Pulmonary Artery Pressure 27/13 Cardiac Output 9.2 Cardiac Index 4.5 - Constitutional General appearance: Present: cooperative, no acute distress - Respiratory Details: Lungs sounds Ms. bilaterally. Respirations even, nonlabored on mechanical ventilation. Current ventilator settings assist control mode, FiO2 40%, tidal volume 500, respiratory rate 18, PEEP 5. #8 Shiley tracheostomy tube present. - Cardiovascular Details: S1, S2 present. Regular rate and rhythm, normal sinus rhythm on telemetry. Sternum stable. Palpable pulses bilaterally. No edema present. Heart hugger, teds, SCDs present. Right brachial PICC line present. - Gastrointestinal Gastrointestinal Comment(s): Abdomen soft, nontender, nondistended. Active bowel sounds 4 quadrants. Tolerating vital tube feedings at 55 mL per hour. - Genitourinary Genitourinary Comment(s): Rosario present draining clear, yellow urine. Output 30-100 mL per hour. - Integumentary Integumentary Comment(s): Anterior chest incision well approximated and covered with dry intact dressing. Left lower extremity EVH site well approximated. Left radial harvest site well approximated with Dermabond. - Neurologic Neurologic Comment(s): Left side withdraws to painful stimuli, right side patient does move to command. Pupils equal round and reactive to light and accommodation, 3 mm down to 2 mm. - Allied health notes Allied health notes reviewed: nursing - Labs CBC & Chem 7: 10/24/16 05:20 10/24/16 05:20 Labs: Abnormal Lab Results - Last 24 Hours (Table) 10/23/16 10/23/16 10/23/16 Range/Units 11:55 15:53 19:56 RBC (4.30-5.90) m/uL Hgb (13.0-17.5) gm/dL Hct (39.0-53.0) % RDW (11.5-15.5) % Neutrophils # (1.3-7.7) k/uL BUN (9-20) mg/dL Glucose (74-99) mg/dL POC Glucose (mg/dL) 170 H 226 H 206 H (75-99) mg/dL Total Protein (6.3-8.2) g/dL Albumin (3.5-5.0) g/dL 10/24/16 10/24/16 10/24/16 Range/Units 00:54 04:05 05:20 RBC 2.90 L (4.30-5.90) m/uL Hgb 8.5 L (13.0-17.5) gm/dL Hct 27.0 L (39.0-53.0) % RDW 19.7 H (11.5-15.5) % Neutrophils # 8.0 H (1.3-7.7) k/uL BUN (9-20) mg/dL Glucose (74-99) mg/dL POC Glucose (mg/dL) 219 H 228 H (75-99) mg/dL Total Protein (6.3-8.2) g/dL Albumin (3.5-5.0) g/dL 10/24/16 10/24/16 Range/Units 05:20 08:06 RBC (4.30-5.90) m/uL Hgb (13.0-17.5) gm/dL Hct (39.0-53.0) % RDW (11.5-15.5) % Neutrophils # (1.3-7.7) k/uL BUN 30 H (9-20) mg/dL Glucose 214 H (74-99) mg/dL POC Glucose (mg/dL) 223 H (75-99) mg/dL Total Protein 4.9 L (6.3-8.2) g/dL Albumin 2.6 L (3.5-5.0) g/dL Assessment and Plan (1) Tobacco dependence in remission Status: Acute (2) Recovering alcoholic in remission Status: Acute (3) Drug addiction in remission Status: Acute (4) Bipolar 1 disorder Status: Acute (5) CHF NYHA class III (symptoms with mildly strenuous activities) Status: Acute (6) COPD (chronic obstructive pulmonary disease) Status: Chronic (7) Coronary artery disease Status: Chronic (8) Hypertension Status: Chronic (9) Non-STEMI (non-ST elevated myocardial infarction) Status: Acute (10) Uncontrolled type 2 diabetes mellitus Status: Acute (11) Tracheostomy in place Status: Acute (12) Acute ischemic stroke Status: Acute (13) Acute left-sided weakness Status: Acute Plan: 1. Continue aspirin, statin, Plavix, heparin subcu, beta caleb. Will maximize beta caleb therapy as tolerated. 2. Continue oral Cardizem for radial artery spasm prevention. 3. Ventilator management per pulmonary services. Wean O2 as tolerated. Daily CPAP trials to exercise lungs, diaphragm. 4. Continue tube feeding. 5. Insulin management per primary care service. 6. GI/DVT prophylaxis. 7. Keep Rosario catheter for strict accurate I and O's. 8. Discharge planning in progress. [facility]. <Ramesh Klein - Last Filed: 10/25/16 11:25> Objective - Vital Signs Vital signs: Vital Signs Temp 97.9 F 10/24/16 16:00 Pulse 64 10/24/16 18:00 Resp 22 10/24/16 18:00 BP 131/73 10/24/16 18:00 Pulse Ox 97 10/24/16 18:00 Intake & Output 10/24/16 10/25/16 10/25/16 18:59 06:59 18:59 Intake Total 1155 Output Total 945 Balance 210 Intake: IV 340 LR 240 Sodium Ferric Gluconat- 100 Sucrose 125 mg In Sodium Chloride 0.9% 100 ml @ 100 mls/hr IVPB Q24H [facility] Rx#:[id number] Tube Feeding 715 Other 100 Output: Urine 945 Other: Voiding Method Indwelling Catheter ABP, PAP, CO, CI - Last Documented Arterial Blood Pressure 156/62 Pulmonary Artery Pressure 27/13 Cardiac Output 9.2 Cardiac Index 4.5 - Labs CBC & Chem 7: 10/24/16 05:20 10/24/16 05:20 Labs: Abnormal Lab Results - Last 24 Hours (Table) 10/24/16 10/24/16 10/24/16 Range/Units 12:14 12:24 16:55 POC Glucose (mg/dL) 233 H 225 H 224 H (75-99) mg/dL Assessment and Plan Plan: The patient was seen and examined. I agree with the above assessment and plan. We will continue to wean his ventilator as tolerated. He has been receiving daily CPAP trials. We will also wean his sedation as tolerated. He is moving his right side much better today. He will continue with tube feeds. [facility]
--- NOTE | 2016-10-24 10:58 | P.PN ---
Subjective Interval history 10/11/16- patient is being seen examined and evaluated on the intensive care unit. Patient has postop day 1 after CABG 4 with cardiothoracic surgeon. Patient was successfully extubated approximately for 20 this morning. Currently the patient is resting up in bed on 6 L of supplemental oxygen. Patient appears somewhat lethargic. Currently he has a left chest tube as well as mediastinal chest tube. Currently he has been AV epicardial pacemaker connected to a generator with a VVI mode with backup rate of 60 BPM. He has a right radial art line, right IJ. Per the nursing staff he has an ineffective cough as well as an ineffective swallow, he had some difficulty with swallowing earlier they're going to reattempt a swallow evaluation again this afternoon. Patient does have some shortness of breath with exertion, is noted to have some lethargy. 10/12/16- see Dr. Ramírez notes 10/13/16- patient being seen examined and evaluated in the intensive care unit. The patient was reintubated yesterday, for increased secretions as well as hyperventilation. Currently the patient is on assist control mode with a respiratory rate of 22, tidal volume 400, FiO2 50% and 0 PEEP. Continues on propofol for sedation. Tube feeds were also initiated yesterday and the patient is tolerating these well. Patient does have a left-sided internal jugular triple-lumen catheter as well as a right arterial line. Patient continues to exhibit left-sided neglect and neurology is on consult for possible stroke. Chest x-ray from this morning was reviewed and shows stable lines and tubes, cardiomegaly, postsurgical changes of the chest and scattered subsegmental atelectasis. 10/14/16-10/17/[address] Olmos's notes as he was covering 10/18/16- See Dr. Ramírez's note 10/19/16- patient is being seen in evaluated and examined today on the intensive care unit. The patient did undergo a tracheostomy placement yesterday. Currently he has a #8 Shiley, is on mechanical ventilation via the trach with assist control mode with a respiratory rate of 18 tidal volume of 500, FiO2 of 40%. Agent is scheduled to go for a PEG tube today. He continues on propofol for sedation. Patient did have some weaning trial yesterday and was able to be maintained on CPAP mode for approximately 30 minutes. Patient will have another weaning trial today after PEG tube insertion. Urine output has been good. During the sedation holiday the patient is also noted to have some continued left-sided weakness/neglect. 10/20/16- patient is being seen in evaluated and examined today given the intensive care on rounds. Currently he has on mechanical ventilation via trach with assist control mode with a respiratory rate of 18, tidal volume of 500, FiO2 40% and 0 PEEP. The patient is off of sedation and will undergoing CPAP and trials. Patient did have his PEG tube placement yesterday. Chest x- ray this morning was reviewed and shows a stable portable chest pleural effusion is unchanged and there is no change in bibasilar opacities. Labs were reviewed WBC 16.7, hemoglobin 8.4, platelet 331, sodium 145, chloride 110, potassium 3.6, BUN 27, creatinine 0.81 magnesium 2.2. awaiting clearance from surgical to use PEG tube. 10/21/16- patient has been seen examined and evaluated today in the intensive care on rounds. Currently the patient is hooked up to mechanical ventilation via trach with assist control mode, currently of 18, tidal volume of 500, FiO2 40% and 0 PEEP. Apparently CPAP trials were not able to be completed yesterday , however will be attempted today. Patient did undergo PEG tube insertion yesterday and tube feedings have been initiated. On examination the patient is currently resting in bed he is able to move his right lower extremity and right upper extremity with weakness. Patient attempts to open eyes however is slow to respond. Patient can follow commands on the right side only, able to wiggle his right toes and squeeze hands with his right hand. Discharge planning is in place [facility] 10/22/16- patient seen seen examined and evaluated today in the intensive care on rounds. Patient continues on mechanical ventilation without sedation via trach. Current ventilator settings are assist control mode with a rate of 18, tidal volume of 500, FiO2 40% and 0 PEEP. We will continue with CPAP trials today. Patient is tolerating tube feeds well. Patient is able to follow on the right side, he is able to squeeze hand on the right side and wiggle his right-sided toes. Occasionally opens his eyes spontaneously. Discharge planning continues to be set up for [facility] with a possible transfer on Monday. All labs and reports have been reviewed. 10/23/16- patient is being seen examined and evaulated today on rounds. [facility]. Will trial the patient on cpap for the rest of the day if tolerated then switch back to AC mode on vent. Patient continues to have some thin moderate secreations from trach. Tolerating tube feds well. Chest xray shows improvement. Patient is following commands and can give a "thumbs" up with his right hand. All labs and reports reviewed. 10/24/16- patient is being seen examined and evaluated today on sounds. Currently the patient is on mechanical ventilation with no sedation. Current ventilator settings are assist control mode with a respiratory rate of 18, tidal volume 500, FiO2 50% and PEEP of 5. Patient will be trialed for CPAP and trialed for trach collar today. Patient did tolerate CPAP yesterday for approximately 12 hours and was switched back over to assist control mode during the evening. Patient continues to be following commands on his right side, and withdraws to pain on the left side. Daughter at bedside and updated on plan of care. Patient is being [facility] Objective - Vital Signs Vital signs: Vital Signs Temp 97.4 F L 10/24/16 08:00 Pulse 71 10/24/16 10:00 Resp 26 H 10/24/16 10:00 BP 142/76 10/24/16 10:00 Pulse Ox 99 10/24/16 10:00 Intake & Output 10/23/16 10/24/16 10/24/16 18:59 06:59 18:59 Intake Total 4771.364 3351 355 Output Total 985 770 290 Balance 553.309 615 65 Weight 88.9 kg Intake: IV 240 340 80 LR 240 240 80 Sodium Ferric Gluconat- 100 Sucrose 125 mg In Sodium Chloride 0.9% 100 ml @ 100 mls/hr IVPB Q24H [facility] Rx#:[id number] Intake, IV Titration 23.309 Amount Insulin Regular 100 unit 23.309 In Sodium Chloride 0.9% 100 ml @ Per Protocol IV .Q0M [facility] Rx#:[id number] Tube Feeding 935 935 275 Other 340 110 Output: Urine 985 770 290 Other: Voiding Method Indwelling Catheter Indwelling Catheter Indwelling Catheter ABP, PAP, CO, CI - Last Documented Arterial Blood Pressure 156/62 Pulmonary Artery Pressure 27/13 Cardiac Output 9.2 Cardiac Index 4.5 - Exam GENERAL EXAM: On mechanical ventilation, sedation has been turned off HEAD: Normocephalic. EYES: Normal reaction of pupils, equal size. NOSE: Clear with pink turbinates. THROAT: No erythema or exudates. NECK: No masses, no JVD. #8 Shiley trach present, dressing clean dry and intact CHEST: No chest wall deformity. The anterior chest wall incision with dressing clean dry and intact. LUNGS: Lungs are noted to be coarse throughout Bases diminished. CVS: S1 and S2 normal with no audible mumurs, regular rhythm. ABDOMEN: No hepatosplenomegaly, normal bowel sounds, no guarding or rigidity. PEG tube in place, vital high-protein infusing EXTREMITIES: trace edema noted, pedal pulses palpable. Left lower extremity site clean dry and intact, left radial harvest site clean dry and intact. SKIN: No rashes CENTRAL NERVOUS SYSTEM: On mechanical ventilation, withdraws from painful stimuli, during sedation holiday the patient is noted to have a grade 2 out of 5 upper extremity neglect right side remains 5 out of 5. Positive for left- sided Babinski - Labs CBC & Chem 7: 10/24/16 05:20 10/24/16 05:20 Labs: Abnormal Lab Results - Last 24 Hours (Table) 10/23/16 10/23/16 10/23/16 Range/Units 11:55 15:53 19:56 RBC (4.30-5.90) m/uL Hgb (13.0-17.5) gm/dL Hct (39.0-53.0) % RDW (11.5-15.5) % Neutrophils # (1.3-7.7) k/uL BUN (9-20) mg/dL Glucose (74-99) mg/dL POC Glucose (mg/dL) 170 H 226 H 206 H (75-99) mg/dL Total Protein (6.3-8.2) g/dL Albumin (3.5-5.0) g/dL 10/24/16 10/24/16 10/24/16 Range/Units 00:54 04:05 05:20 RBC 2.90 L (4.30-5.90) m/uL Hgb 8.5 L (13.0-17.5) gm/dL Hct 27.0 L (39.0-53.0) % RDW 19.7 H (11.5-15.5) % Neutrophils # 8.0 H (1.3-7.7) k/uL BUN (9-20) mg/dL Glucose (74-99) mg/dL POC Glucose (mg/dL) 219 H 228 H (75-99) mg/dL Total Protein (6.3-8.2) g/dL Albumin (3.5-5.0) g/dL 10/24/16 10/24/16 Range/Units 05:20 08:06 RBC (4.30-5.90) m/uL Hgb (13.0-17.5) gm/dL Hct (39.0-53.0) % RDW (11.5-15.5) % Neutrophils # (1.3-7.7) k/uL BUN 30 H (9-20) mg/dL Glucose 214 H (74-99) mg/dL POC Glucose (mg/dL) 223 H (75-99) mg/dL Total Protein 4.9 L (6.3-8.2) g/dL Albumin 2.6 L (3.5-5.0) g/dL Assessment and Plan Plan: Assessment Acute hypoxic respiratory failure, small postoperative bilateral pleural effusions Probable CVA with left-sided hemiparesis, cannot be excluded, neurology on consult. 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 Patient is post op day 14 after CABG 4. Patient is postop day 6 of tracheostomy placement. Postop day 5 of PEG tube placement. Patient should remain on mechanical ventilation, with CPAP and trials. We will trail cpap throughout the day as tolerated and also trial trach collar today. Labs and reports have been reviewed. Medications have been reviewed and will be continued as ordered. Continue with pulmonary hygiene, and supportive care. . Supplemental oxygen to maintain oxygen saturations of 92% or better. Continue nebulizer treatments. GI and DVT prophylaxis. We will continue to monitor labs/ results and adjust treatment as necessary. Further recommendations pending. I performed an examination of the patient and discussed their management with the nurse practitioner. I have reviewed the nurse practitioner's note and agree with the documented findings and plan of care.
[2016-10-24 12:17] LABS: Glucose,Whole Blood 233 mg/dL (75-99)
[2016-10-24 12:28] LABS: Glucose,Whole Blood 225 mg/dL (75-99)
--- NOTE | 2016-10-24 15:48 | P.DS ---
Providers Date of admission: 10/06/16 08:33 Attending physician: Ramesh Klein Consults: 10/06/16 12:27 Consult Physician Urgent Consulting Provider: Ramesh Klein Consult Reason/Comments: CABG Do you want consulting provider notified?: Yes 10/06/16 12:29 Consult Physician Urgent Consulting Provider: Familia Ramírez Consult Reason/Comments: pulmonary, pre CABG Do you want consulting provider notified?: Yes 10/07/16 15:41 Consult Anesthesia Routine Consulting Provider: Anesthesia,Services Consult Reason/Comments: Cardiac Surgery Pre-Op 10/10/16 15:54 Consult Physician Routine Consulting Provider: Trae Magana Consult Reason/Comments: medical management Do you want consulting provider notified?: Yes Consult Physician Routine Consulting Provider: Akosua Whelan Consult Reason/Comments: Pipe Fitter Helper Consult: post cardiac surgery Do you want consulting provider notified?: Yes 10/12/16 08:33 Consult Physician Urgent Consulting Provider: Diane Maloney Consult Reason/Comments: postoperative weakness to his left extremities. Do you want consulting provider notified?: Yes 10/18/16 08:34 Consult Physician Routine Consulting Provider: Сергей Wyatt Consult Reason/Comments: peg placement Do you want consulting provider notified?: Already Contacted Primary care physician: Trae Magana - Discharge Diagnosis(es) (1) Tobacco dependence in remission Current Visit: Yes Status: Acute (2) Recovering alcoholic in remission Current Visit: Yes Status: Acute (3) Drug addiction in remission Current Visit: Yes Status: Acute (4) Bipolar 1 disorder Current Visit: Yes Status: Acute (5) CHF NYHA class III (symptoms with mildly strenuous activities) Current Visit: Yes Status: Acute (6) COPD (chronic obstructive pulmonary disease) Current Visit: Yes Status: Chronic (7) Coronary artery disease Current Visit: Yes Status: Chronic (8) Hypertension Current Visit: Yes Status: Chronic (9) Non-STEMI (non-ST elevated myocardial infarction) Current Visit: Yes Status: Acute (10) Uncontrolled type 2 diabetes mellitus Current Visit: Yes Status: Acute (11) Tracheostomy in place Current Visit: Yes Status: Acute (12) Acute ischemic stroke Current Visit: Yes Status: Acute (13) Acute left-sided weakness Current Visit: Yes Status: Acute Hospital Course: FINAL DIAGNOSIS: 1. Severe triple-vessel coronary artery disease, non-ST elevation myocardial infarction 2. Hypertension 3. Chronic obstructive pulmonary disease 4. Uncontrolled type 2 diabetes mellitus 5. Gastroesophageal reflux disease 6. Systolic heart failure 7. Bipolar disorder 8. Previous tobacco dependence 9. Recovering alcoholic 10. Recovering drug addict 11. Family history of coronary artery disease. 12. Postoperative reintubation for airway protection, prolonged mechanical ventilation 13. Postoperative ischemic stroke 14. Leukocytosis, unknown source with negative sputum culture, blood culture, urine culture PRINCIPAL PROCEDURE: 1. Urgent coronary artery bypass grafting 4 vessels, left internal mammary artery to the left anterior descending artery, radial artery to the ramus artery , reverse saphenous vein graft to the diagonal artery, reverse saphenous vein graft to the posterior descending artery 2. Endoscopic vein harvest left greater saphenous vein 3. Endoscopic harvesting of the left radial artery 4. Epi-aortic ultrasound 5. Intraoperative transesophageal echocardiogram 6. Tracheostomy insertion with a #8 Shiley fenestrated tracheostomy tube 7. Percutaneous endoscopic gastrostomy tube placement HISTORY OF PRESENT ILLNESS: This 50-year-old gentleman with a previous medical history of diabetes, hypertension, COPD, bipolar disorder, pneumonia, previous nicotine dependence, previous alcohol and drug addiction presented to the emergency room at [facility] with complaints of chest pain and worsening shortness of breath. He reportedly had been having chest patient was brought in for a period of 4-6 weeks prior to presenting to the hospital. His dyspnea has become worse while lying flat and he admitted to severe edema to his bilateral lower extremity. A 12-lead EKG was done in the emergency department which demonstrated evidence of a non-ST elevation myocardial infarction. He had troponins drawn which resulted as high as 3.34 and an echocardiogram completed which demonstrated trace aortic regurgitation, mild mitral regurgitation, trace tricuspid regurgitation and normal left ventricular size with moderate to severe hypokinesis in the apical inferior wall, apical septal wall, and apical lateral wall with an ejection fraction of 40%. At that time he was admitted to [facility] for further treatment and evaluation and was started on a Lasix drip, beta blockers, ARB, aspirin and statin therapy. Subsequently he was transferred to [facility] for further cardiac workup. He underwent heart catheterization which demonstrated 70% stenosis to his right coronary artery, 100% stenosis to a circumflex coronary artery, and a totally occluded left anterior descending coronary artery. His his left ventriculogram demonstrated an ejection fraction 35%. Dr. Klein from cardiothoracic surgery was consulted for the possibility of surgical revascularization. An extensive discussion was had with the patient and his family, risks and benefits were explained, and consent was obtained to proceed with surgery. HOSPITAL COURSE: This gentleman was kept inpatient. On 10/10/2016 he was taken to the preoperative area, prepared in the usual fashion, and subsequently taken to the operating room where Dr. Klein performed an urgent coronary artery bypass grafting 4 vessels, with the left internal mammary artery to left anterior descending artery, radial artery to the ramus artery, reverse saphenous vein graft to the diagonal artery, reverse saphenous vein graft to the posterior descending artery, endoscopic vein harvest of the left greater saphenous vein, endoscopic harvesting of the left radial artery, epi-aortic ultrasound, and intraoperative transesophageal echocardiogram. Upon completion of surgery the patient was transferred to the cardiovascular intensive care unit where he was recovered and monitored hemodynamically. He was extubated on postop day 1 and was noted to have intermittent periods of left sided weakness. Neurology was consulted and he had serial CT scans of the brain which eventually demonstrated an ischemic right middle cerebral artery stroke. He had difficulty controlling his secretions and had a diminished gag reflex and subsequently was reintubated on postop day #3. He was unable to wean from mechanical ventilation and on postop day #8 he had a tracheostomy insertion with a #8 Shiley fenestrated tracheostomy tube. Postop day #9 he had placement of a percutaneous endoscopic gastrostomy tube. A right brachial PICC line was placed. He continued to have CPAP trials daily to exercise his lungs and diaphragm. He received physical therapy for passive range of motion exercises. The patient was ready to be discharged to [facility] for continued ventilatory management on postoperative day #14. He was transferred with written instructions regarding medications, activity restrictions, signs and symptoms requiring physician notification, and follow-up appointments. COMPLICATIONS: The patient experienced postoperative ischemic right middle cerebral artery stroke which was treated accordingly. DISCHARGE INSTRUCTIONS: 1. No driving for 4 weeks, or until physician gives their ok. 2. The patient should sleep in their own bed, no medical bed needed. 3. Stairs are not an issue. If the bedroom is upstairs, it is advised that the patient go up at night and down in the morning for the first week. Go slowly, using handrail and take 1 step at a time. 4. NNEKA hose are to be worn for 30 days or until physician discontinues. 5. Heart hugger is to be worn 100% of the time until physician discontinues.( except when showering) 6. No lifting, pushing, or pulling more than 10 pounds for 12 weeks. The physician will advise of any restriction changes. 7. The patient is expected to continue the prescribed walking program. 8. Continue pain control per as needed orders. 9. Continue with incentive spirometry and splinting/heart hugger until otherwise directed by the physician. 10. Must shower daily using liquid antibacterial soap and a separate white washcloth for each individual incision. 11. Routine sternal incision care. No powders, lotions, ointments on incisions. 12. Please call surgeon/DIE MOUNTER for temp greater than 101 F or purulent drainage from incisions. 13. All prescriptions given by surgeon for 30 days. Refills need to be filled through evaporator operator/primary care physician. REHAB/HOME HEALTH SERVICES TO PROVIDE: RN SKILLED HOME CARE SERVICES FOR POST-OP SURGICAL PATIENTS WITH THE FOLLOWING: Coronary Artery Bypass Surgery (CABG), Mitral Valve Replacement/ Repair ( MVR), Aortic Valve Replacement/Repair (AVR) RN TO CONTINUE EDUCATION FROM ``ROAD TO A HEALTH HEART PATIENT EDUCATION MANUAL (GIVEN TO PATIENT IN THE HOSPITAL) MEDICATION RECONCILIATION WITH EDUCATION NEEDED ON FIRST HOME VISIT EMPHASIZE IMPORTANCE OF WEARING BREAST SUPPORT/HEART HUGGER ENCOURAGE USE OF INCENTIVE SPIROMETER 10 X EVERY HOUR WHILE AWAKE ENCOURAGE UTILIZATION OF LOWER EXTREMITY COMPRESSION STOCKINGS/NNEKA HOSE and ELEVATE LEGS ABOVE LEVEL OF HEART WHILE AT REST. ENCOURAGE AMBULATION 3-5x/day INCREASING TOLERATES, WHILE AVOID EXTREMES IN TEMPERATURE FREQUENCY: RN TO OPEN THE PATIENT WITHIN 24 HOURS OF DISCHARGE FROM THE HOSPITAL WITH TELEHEALTH INSTALLED AT [facility], RN TO VISIT 2-3 X A WEEK FOR 4 WEEKS ESTABLISHED BY PATIENT NEEDS. LABORATORY: CBC, CMP TO BE DRAWN ON THE THIRD DAY HOME, 10/27/2016 (RAN STAT ) FAX RESULTS TO [phone]. TELEHEALTH PARAMETERS: WEIGHT: NOTIFY MD OF WEIGHT GAIN OF 2 LBS IN 24 HOURS OR 5 LBS IN ONE WEEK HR: NOTIFY MD OF HR <55 BPM OR HR>100 BPM BP: NOTIFY MD IF BP <90/55 OR BP>140/100 O2 SAT: NOTIFY MD IF PO2<93% ON ROOM AIR SEND TELEHEALTH REPORT TO SCHOOL LUNCH MANAGER AND CARDIOVASCULAR SURGEON THE FIRST WEEK OF CARE AND THEN BI-WEEKLY. PLEASE ADDITIONALLY COMMUNICATE ANY ABNORMALS AND NEW FINDINGS TO THE SURGEONS OFFICE. A Red armband has been placed on the patient. It should be worn for 30 days post surgery and will be removed by the cardiac surgeons. If an ER visit is necessary, please make sure the number on the Red armband is called. Plan - Discharge Summary New Discharge Prescriptions: New Acetaminophen Tab [Tylenol] 650 mg PO Q4HR PRN tab PRN Reason: Fever And/ Or Pain Aspirin 325 mg PO DAILY tab Atorvastatin [Lipitor] 40 mg PO DAILY tab Bisacodyl [Dulcolax] 10 mg RECTAL DAILY PRN suppositor PRN Reason: Constipation Chlorhexidine Gluconate [Peridex] 15 ml MUCOUS MEM BID dose Clopidogrel [Plavix] 75 mg PO DAILY tab Diltiazem Oral [Cardizem*] 30 mg PO QID tab Heparin Sodium,Porcine [Heparin Sodium] 5,000 unit SQ Q8HR vial HYDROcodone/APAP 5-325MG [[place] 5-325] 1 - 2 each PO Q6HR PRN #120 tab PRN Reason: Moderate Pain Insulin Glargine [Lantus] 10 unit SQ BID vial INSULIN LISPRO (humaLOG) [humaLOG (formulary)] 0 unit SQ Q4HR vial Ipratropium-Albuterol Nebulize [Duoneb 0.5 mg-3 mg/3 ml Soln] 3 ml INHALATION RT-Q2H PRN neb PRN Reason: Shortness Of Breath Or Wheezing Ipratropium-Albuterol Nebulize [Duoneb 0.5 mg-3 mg/3 ml Soln] 3 ml INHALATION RT-QID neb Magnesium Hydroxide [Milk of Magnesia Concentrate] 2,400 mg PO BID PRN dose PRN Reason: Constipation Metoprolol Tartrate [Lopressor] 50 mg PO BID tab Ondansetron [Zofran] 4 mg IVP Q6HR PRN vial PRN Reason: Nausea And Vomiting Sennosides-Docusate Sodium [Senokot-S] 2 each PO HS tab Discontinued Cetirizine HCl [Zyrtec] 10 mg PO DAILY Omeprazole 20 mg PO DAILY Albuterol Inhaler [Ventolin Hfa Inhaler] 2 puff INHALATION RT-QID PRN PRN Reason: Shortness Of Breath Albuterol Nebulized [Ventolin Nebulized] 2.5 mg INHALATION RT-Q6H PRN PRN Reason: Shortness Of Breath Discharge Medication List Acetaminophen Tab [Tylenol] 650 mg PO Q4HR PRN tab 10/24/16 [Rx] Aspirin 325 mg PO DAILY tab 10/24/16 [Rx] Atorvastatin [Lipitor] 40 mg PO DAILY tab 10/24/16 [Rx] Bisacodyl [Dulcolax] 10 mg RECTAL DAILY PRN suppositor 10/24/16 [Rx] Chlorhexidine Gluconate [Peridex] 15 ml MUCOUS MEM BID dose 10/24/16 [Rx] Clopidogrel [Plavix] 75 mg PO DAILY tab 10/24/16 [Rx] Diltiazem Oral [Cardizem*] 30 mg PO QID tab 10/24/16 [Rx] HYDROcodone/APAP 5-325MG [[place] 5-325] 1 - 2 each PO Q6HR PRN #120 tab 10/24/16 [Rx] Heparin Sodium,Porcine [Heparin Sodium] 5,000 unit SQ Q8HR vial 10/24/16 [Rx] INSULIN LISPRO (humaLOG) [humaLOG (formulary)] 0 unit SQ Q4HR vial 10/24/16 [Rx ] Insulin Glargine [Lantus] 10 unit SQ BID vial 10/24/16 [Rx] Ipratropium-Albuterol Nebulize [Duoneb 0.5 mg-3 mg/3 ml Soln] 3 ml INHALATION RT -Q2H PRN neb 10/24/16 [Rx] Ipratropium-Albuterol Nebulize [Duoneb 0.5 mg-3 mg/3 ml Soln] 3 ml INHALATION RT -QID neb 10/24/16 [Rx] Magnesium Hydroxide [Milk of Magnesia Concentrate] 2,400 mg PO BID PRN dose 12/30 [Rx] Metoprolol Tartrate [Lopressor] 50 mg PO BID tab 10/24/16 [Rx] Ondansetron [Zofran] 4 mg IVP Q6HR PRN vial 10/24/16 [Rx] Sennosides-Docusate Sodium [Senokot-S] 2 each PO HS tab 10/24/16 [Rx] Follow up Appointment(s)/Referral(s): Akosua Whelan MD [STAFF PHYSICIAN] - 2 Weeks Trae Magana MD [Primary Care Provider] - 2 Weeks [facility], [NON-STAFF] - Ramesh Klein MD [STAFF PHYSICIAN] - 11/18/16 10:00 am Familia Ramírez MD [STAFF PHYSICIAN] - 2 Weeks Ambulatory/Diagnostic Orders: Complete Blood Count w/diff [LAB.AMB] Time Frame: 3 Days, Location: Determined By Patient Comprehensive Metabolic Panel [LAB.AMB] Time Frame: 3 Days, Location: Determined By Patient Activity/Diet/Wound Care/Special Instructions: DISCHARGE INSTRUCTIONS: 1. No driving for 4 weeks, or until physician gives their ok. 2. The patient should sleep in their own bed, no medical bed needed. 3. Stairs are not an issue. If the bedroom is upstairs, it is advised that the patient go up at night and down in the morning for the first week. Go slowly, using handrail and take 1 step at a time. 4. NNEKA hose are to be worn for 30 days or until physician discontinues. 5. Heart hugger is to be worn 100% of the time until physician discontinues.( except when showering) 6. No lifting, pushing, or pulling more than 10 pounds for 12 weeks. The physician will advise of any restriction changes. 7. The patient is expected to continue the prescribed walking program. 8. Continue pain control per as needed orders. 9. Continue with incentive spirometry and splinting/heart hugger until otherwise directed by the physician. 10. Must shower daily using liquid antibacterial soap and a separate white washcloth for each individual incision. 11. Routine sternal incision care. No powders, lotions, ointments on incisions. 12. Please call surgeon/DIE MOUNTER for temp greater than 101 F or purulent drainage from incisions. 13. All prescriptions given by surgeon for 30 days. Refills need to be filled through evaporator operator/primary care physician. REHAB/HOME HEALTH SERVICES TO PROVIDE: RN SKILLED HOME CARE SERVICES FOR POST-OP SURGICAL PATIENTS WITH THE FOLLOWING: Coronary Artery Bypass Surgery (CABG), Mitral Valve Replacement/ Repair ( MVR), Aortic Valve Replacement/Repair (AVR) RN TO CONTINUE EDUCATION FROM ``ROAD TO A HEALTH HEART PATIENT EDUCATION MANUAL (GIVEN TO PATIENT IN THE HOSPITAL) MEDICATION RECONCILIATION WITH EDUCATION NEEDED ON FIRST HOME VISIT EMPHASIZE IMPORTANCE OF WEARING BREAST SUPPORT/HEART HUGGER ENCOURAGE USE OF INCENTIVE SPIROMETER 10 X EVERY HOUR WHILE AWAKE ENCOURAGE UTILIZATION OF LOWER EXTREMITY COMPRESSION STOCKINGS/NNEKA HOSE and ELEVATE LEGS ABOVE LEVEL OF HEART WHILE AT REST. ENCOURAGE AMBULATION 3-5x/day INCREASING TOLERATES, WHILE AVOID EXTREMES IN TEMPERATURE FREQUENCY: RN TO OPEN THE PATIENT WITHIN 24 HOURS OF DISCHARGE FROM THE HOSPITAL WITH TELEHEALTH INSTALLED AT [facility], RN TO VISIT 2-3 X A WEEK FOR 4 WEEKS ESTABLISHED BY PATIENT NEEDS. LABORATORY: CBC, CMP TO BE DRAWN ON THE THIRD DAY HOME, 10/27/2016 (RAN STAT ) FAX RESULTS TO [phone]. TELEHEALTH PARAMETERS: WEIGHT: NOTIFY MD OF WEIGHT GAIN OF 2 LBS IN 24 HOURS OR 5 LBS IN ONE WEEK HR: NOTIFY MD OF HR <55 BPM OR HR>100 BPM BP: NOTIFY MD IF BP <90/55 OR BP>140/100 O2 SAT: NOTIFY MD IF PO2<93% ON ROOM AIR SEND TELEHEALTH REPORT TO SCHOOL LUNCH MANAGER AND CARDIOVASCULAR SURGEON THE FIRST WEEK OF CARE AND THEN BI-WEEKLY. PLEASE ADDITIONALLY COMMUNICATE ANY ABNORMALS AND NEW FINDINGS TO THE SURGEONS OFFICE. A Red armband has been placed on the patient. It should be worn for 30 days post surgery and will be removed by the cardiac surgeons. If an ER visit is necessary, please make sure the number on the Red armband is called. Discharge Disposition: DC/TRNS INTERMEDIATE CARE FAC
--- NOTE | 2016-10-24 15:56 | PN ---
PROGRESS NOTE This is a 50-year-old gentleman who was admitted to hospital for bypass surgery and had a perioperative stroke with dense left-sided hemiplegia. This morning he is moving his right leg intermittently but does not open his eyes. PHYSICAL EXAM: On exam he is comfortable at rest. Vital signs are stable. Chest exam reveals diminished air entry at the bases. Heart exam reveals first and second heart sounds. No gallop. Examination of the extremities revealed trace edema. LABS: Hemoglobin of 8.5. Platelet count is 259, creatinine is 0.7. Potassium is 4.1. ASSESSMENT: 1. Coronary artery disease, status post coronary artery bypass grafting. 2. Status post cerebrovascular accident with dense CABG. #2 status post CVA with dense left hemiplegia. PLAN: Please continue with the current care. I am going to see him on an as-needed basis. Continue the Lopressor, Lipitor, aspirin, Plavix and the metoprolol that he is currently on. MMODL / IJN: [id number] /
[2016-10-24 16:27] VITALS: TEMP 97.9
[2016-10-24] MEDS: SODIUM FERRIC GLUCONAT-SUCROSE 125 MG in SODIUM CHLORIDE 0.9% 100 ML IVPB SCH (16:58)
[2016-10-24] MEDS: LACTATED RINGERS 1,000 ML IV SCH (16:59)
[2016-10-24 17:10] LABS: Glucose,Whole Blood 224 mg/dL (75-99)
[2016-10-24 18:39] VITALS: BP 131/73; PULSE 64; RESP 22
== END 2016-10-24 18:59 | DRG 3 ==
LOC: EEVIPCON 08:33 → 6SEL 08:33 → 6ICU 10-10 13:41
PROVIDERS: ADMIT Family Medicine; ATTEND Surgery
PROC: 4A023N8 Measurement of Cardiac Sampling and Pressure, Bilateral, Percutaneous Approach (ICD-10-PCS; 2016-10-06)
PROC: B2111ZZ Fluoroscopy of Multiple Coronary Arteries using Low Osmolar Contrast (ICD-10-PCS; 2016-10-06)
PROC: B2151ZZ Fluoroscopy of Left Heart using Low Osmolar Contrast (ICD-10-PCS; 2016-10-06)
PROC: 02110A9 Bypass Coronary Artery, Two Arteries from Left Internal Mammary with Autologous Arterial Tissue, Open Approach (ICD-10-PCS; 2016-10-10 07:30)
PROC: 03BC4ZZ Excision of Left Radial Artery, Percutaneous Endoscopic Approach (ICD-10-PCS; 2016-10-10 07:30)
PROC: 5A1221Z Performance of Cardiac Output, Continuous (ICD-10-PCS; 2016-10-10 07:30)
PROC: 06BQ4ZZ Excision of Left Saphenous Vein, Percutaneous Endoscopic Approach (ICD-10-PCS; 2016-10-10 07:30)
PROC: 021109W Bypass Coronary Artery, Two Arteries from Aorta with Autologous Venous Tissue, Open Approach (ICD-10-PCS; 2016-10-10 07:30)
PROC: B246ZZ4 Ultrasonography of Right and Left Heart, Transesophageal (ICD-10-PCS; 2016-10-10 07:30)
PROC: 0BH18EZ Insertion of Endotracheal Airway into Trachea, Via Natural or Artificial Opening Endoscopic (ICD-10-PCS; 2016-10-12)
PROC: 02HV33Z Insertion of Infusion Device into Superior Vena Cava, Percutaneous Approach (ICD-10-PCS; 2016-10-12)
PROC: 5A1955Z Respiratory Ventilation, Greater than 96 Consecutive Hours (ICD-10-PCS; 2016-10-18)
PROC: 0B110F4 Bypass Trachea to Cutaneous with Tracheostomy Device, Open Approach (ICD-10-PCS; 2016-10-18)
PROC: 02HV33Z Insertion of Infusion Device into Superior Vena Cava, Percutaneous Approach (ICD-10-PCS; principal; 2016-10-18 07:30)
PROC: 0DH63UZ Insertion of Feeding Device into Stomach, Percutaneous Approach (ICD-10-PCS; 2016-10-19)
DX: I21.4 Non-ST elevation (NSTEMI) myocardial infarction (principal); I63.511 Cerebral infarction due to unspecified occlusion or stenosis of right middle cerebral artery; J69.0 Pneumonitis due to inhalation of food and vomit; G93.40 Encephalopathy, unspecified; I50.21 Acute systolic (congestive) heart failure; E11.65 Type 2 diabetes mellitus with hyperglycemia; D69.6 Thrombocytopenia, unspecified; J96.01 Acute respiratory failure with hypoxia; E46 Unspecified protein-calorie malnutrition; E87.3 Alkalosis; G81.94 Hemiplegia, unspecified affecting left nondominant side; J98.11 Atelectasis; Z99.11 Dependence on respirator [ventilator] status; I48.91 Unspecified atrial fibrillation; I11.0 Hypertensive heart disease with heart failure; D64.9 Anemia, unspecified; I25.10 Atherosclerotic heart disease of native coronary artery without angina pectoris; E78.5 Hyperlipidemia, unspecified; F10.21 Alcohol dependence, in remission; F17.201 Nicotine dependence, unspecified, in remission; F31.9 Bipolar disorder, unspecified; I25.5 Ischemic cardiomyopathy; I25.82 Chronic total occlusion of coronary artery; J44.9 Chronic obstructive pulmonary disease, unspecified; K21.9 Gastro-esophageal reflux disease without esophagitis; Z79.4 Long term (current) use of insulin; Z79.82 Long term (current) use of aspirin; Z79.899 Other long term (current) drug therapy; Z82.49 Family history of ischemic heart disease and other diseases of the circulatory system; Z82.5 Family history of asthma and other chronic lower respiratory diseases; Z83.3 Family history of diabetes mellitus; Z87.442 Personal history of urinary calculi; Z91.19 Patient's noncompliance with other medical treatment and regimen
CPT/HCPCS: 36569; 36620; 43246; 70450; 70496; 70498; 71010; 71020; 76937; 80048; 80053; 80061; 80074; 81003; 82330; 82805; 82810; 83036; 83090; 83605; 83735; 84100; 84132; 84443; 85018; 85025; 85520; 85610; 85730; 86850; 86891; 86900; 86901; 86920; 87040; 87070; 87086; 87205; 87324; 93460; 93880; 93922; 93970; 94002; 94003; 94150; 94640; 95816; 95819

== ENCOUNTER 2017-06-24 07:39 | Emergency (ER) | payer BC, OTHER ==
[2017-06-24] MEDS ORDERED: IPRATROPIUM-ALBUTEROL 3 ML NEB INHALATION STA (07:45)
[2017-06-24 07:49] VITALS: TEMP 97
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
[2017-06-24 08:22] LABS: Basophils # (A) 0.1 k/uL (0-0.2); Basophils % (A) 1 %; Eosinophils # (A) 0.8 k/uL (0-0.7); Eosinophils % (A) 11 %; HCT 38.9 % (39.0-53.0); HGB 13.7 gm/dL (13.0-17.5); Lymphocytes # (A) 1.2 k/uL (1.0-4.8); Lymphocytes % (A) 17 %; MCH 28.7 pg (25.0-35.0); MCHC 35.1 g/dL (31.0-37.0); MCV 81.8 fL (80.0-100.0); Mean Platelet Volume 7.7; Monocytes # (A) 0.5 k/uL (0-1.0); Monocytes % (A) 7 %; Neutrophils # (A) 4.3 k/uL (1.3-7.7); Neutrophils % (A) 62 %; Platelet Count 198 k/uL (150-450); RBC 4.76 m/uL (4.30-5.90); WBC 6.9 k/uL (3.8-10.6)
[2017-06-24 08:32] LABS: ALT 32 U/L (21-72); AST 17 U/L (17-59); Alkaline Phosphatase 69 U/L (38-126); Anion Gap 14 mmol/L; Blood Urea Nitrogen 17 mg/dL (9-20); Calcium 9.8 mg/dL (8.4-10.2); Carbon Dioxide 28 mmol/L (22-30); Chloride 104 mmol/L (98-107); Glucose 101 mg/dL (74-99); Magnesium 1.9 mg/dL (1.6-2.3); Potassium 3.6 mmol/L (3.5-5.1); Sodium 146 mmol/L (137-145); Total Bilirubin 0.5 mg/dL (0.2-1.3); Total Protein 6.2 g/dL (6.3-8.2)
[2017-06-24 08:39] LABS: D-Dimer 0.19 mg/L FEU (<0.60); INR 1.1 (<1.2); Partial Thromboplastin Time 23.7 sec (22.0-30.0); Prothrombin Time 10.6 sec (9.0-12.0)
[2017-06-24 08:54] LABS: Troponin I 0.016 ng/mL (0.000-0.034)
[2017-06-24 08:56] LABS: Creatine Kinase MB 2.7 ng/mL (0.0-2.4)
--- NOTE | 2017-06-24 09:14 | XR ---
EXAMINATION TYPE: XR chest 1V DATE OF EXAM: 06/24/2017 HISTORY: difficulty breathing. REFERENCE: Previous study dated 01/16/2017. FINDINGS: There has been a previous midline sternotomy. The lungs are clear. Pleural spaces are clear. Heart size is upper limits of normal. IMPRESSION: BORDERLINE CARDIOMEGALY.
[2017-06-24 09:16] VITALS: RESP 18
[2017-06-24 10:23] VITALS: BP 141/89; PULSE 77
== END 2017-06-24 10:21 | disposition home or self-care (01) ==
LOC: EC 07:39
DX: J98.01 Acute bronchospasm (principal); I69.354 Hemiplegia and hemiparesis following cerebral infarction affecting left non-dominant side; M95.2 Other acquired deformity of head; I10 Essential (primary) hypertension; I25.10 Atherosclerotic heart disease of native coronary artery without angina pectoris; J44.9 Chronic obstructive pulmonary disease, unspecified; E11.9 Type 2 diabetes mellitus without complications; F31.9 Bipolar disorder, unspecified; I25.2 Old myocardial infarction; Z87.891 Personal history of nicotine dependence; Z79.02 Long term (current) use of antithrombotics/antiplatelets; Z79.4 Long term (current) use of insulin; Z79.82 Long term (current) use of aspirin; Z79.899 Other long term (current) drug therapy; Z86.79 Personal history of other diseases of the circulatory system; Z82.5 Family history of asthma and other chronic lower respiratory diseases; Z82.49 Family history of ischemic heart disease and other diseases of the circulatory system
CPT/HCPCS: 36415; 71045; 80053; 82550; 82553; 83735; 83880; 84484; 85025; 85379; 85610; 85730; 93005; 94640; 99285

== ENCOUNTER 2017-07-01 16:29 | Emergency (ER) | payer OTHER ==
[2017-07-01 16:46] VITALS: TEMP 98
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
[2017-07-01 17:56] LABS: Amphetamine Screen,Urine Not Detected (NotDetected); Barbiturate Screen,Urine Not Detected (NotDetected); Benzodiazepines Screen,Urine Detected (NotDetected); Cocaine Screen,Urine Not Detected (NotDetected); Methadone Screen, Urine Not Detected (NotDetected); Opiate Screen,Urine Not Detected (NotDetected); Oxycodone Screen, Urine Not Detected (NotDetected); Phencyclidine Screen,Urine Not Detected (NotDetected); Tricyclic Antidepressant,Urine Not Detected (NotDetected); Urn Cannabinoid Scrn Not Detected (NotDetected)
[2017-07-01 20:13] LABS: Appearance,Urine Cloudy (Clear); Bilirubin,Urine Negative (Negative); Blood,Urine Negative (Negative); Color,Urine Yellow; Glucose,Urine (UA) Negative (Negative); Ketones,Urine Negative (Negative); Leukocyte Esterase,Urine Negative (Negative); Nitrite,Urine Negative (Negative); PH, Urine 7.5 (5.0-8.0); Protein,Urine Trace (Negative); Specific Gravity,Urine 1.018 (1.001-1.035); Urobilinogen,Urine <2.0 mg/dL (<2.0); WBC,Urine 1 /hpf (0-5)
[2017-07-01] MEDS ORDERED: QUEtiapine 50 MG TAB PO STA (23:40)
[2017-07-01] MEDS ORDERED: QUEtiapine 50 MG TAB PO SCH (23:45)
[2017-07-01] MEDS ORDERED: amLODIPine 5 MG TAB PO SCH (23:45)
[2017-07-01] MEDS ORDERED: ATORVASTATIN 40 MG TAB PO SCH (23:45)
[2017-07-01] MEDS ORDERED: LISINOPRIL 2.5 MG TAB PO SCH (23:45)
[2017-07-01] MEDS ORDERED: ATORVASTATIN 40 MG TAB PO STA (23:49)
[2017-07-01] MEDS ORDERED: amLODIPine 5 MG TAB PO STA (23:49)
[2017-07-01] MEDS ORDERED: LISINOPRIL 5 MG TAB PO STA (23:50)
[2017-07-02 02:45] LABS: Basophils # (A) 0.1 k/uL (0-0.2); Basophils % (A) 1 %; Eosinophils # (A) 0.6 k/uL (0-0.7); Eosinophils % (A) 7 %; HCT 40.9 % (39.0-53.0); HGB 14.2 gm/dL (13.0-17.5); Lymphocytes # (A) 1.8 k/uL (1.0-4.8); Lymphocytes % (A) 21 %; MCH 29.6 pg (25.0-35.0); MCHC 34.7 g/dL (31.0-37.0); MCV 85.3 fL (80.0-100.0); Mean Platelet Volume 6.9; Monocytes # (A) 0.6 k/uL (0-1.0); Monocytes % (A) 8 %; Neutrophils # (A) 5.2 k/uL (1.3-7.7); Neutrophils % (A) 62 %; Platelet Count 201 k/uL (150-450); RBC 4.79 m/uL (4.30-5.90); RDW 13.5 % (11.5-15.5); WBC 8.5 k/uL (3.8-10.6)
[2017-07-02 02:56] LABS: ALT 40 U/L (21-72); AST 27 U/L (17-59); Albumin 3.8 g/dL (3.5-5.0); Alkaline Phosphatase 70 U/L (38-126); Anion Gap 13 mmol/L; Blood Urea Nitrogen 20 mg/dL (9-20); Calcium 9.9 mg/dL (8.4-10.2); Carbon Dioxide 30 mmol/L (22-30); Chloride 101 mmol/L (98-107); Glucose 109 mg/dL (74-99); Potassium 3.7 mmol/L (3.5-5.1); Sodium 144 mmol/L (137-145); Total Bilirubin 0.8 mg/dL (0.2-1.3); Total Protein 5.9 g/dL (6.3-8.2)
[2017-07-02] MEDS ORDERED: LORazepam 1 MG TAB PO SCH ×2 (08:00)
[2017-07-02] MEDS ORDERED: ESCITALOPRAM 10 MG TAB PO SCH (09:00)
[2017-07-02] MEDS ORDERED: CLOPIDOGREL 75 MG TAB PO SCH (09:00)
[2017-07-02] MEDS ORDERED: DULoxetine HCL 30 MG CAPSULE.DR PO SCH (09:00)
[2017-07-02] MEDS ORDERED: LABETALOL 200 MG TAB PO SCH (09:00)
[2017-07-02] MEDS ORDERED: hydrALAZINE HCL 10 MG TAB PO SCH (09:00)
--- NOTE | 2017-07-02 15:00 | ED ---
Medical Decision Making - Lab Data Result diagrams: 07/02/17 02:20 07/02/17 02:20 Lab Results 07/01/17 07/01/17 07/02/17 Range/Units 17:20 17:20 02:20 WBC 8.5 (3.8-10.6) k/uL RBC 4.79 (4.30-5.90) m/uL Hgb 14.2 (13.0-17.5) gm/dL Hct 40.9 (39.0-53.0) % MCV 85.3 (80.0-100.0) fL MCH 29.6 (25.0-35.0) pg MCHC 34.7 (31.0-37.0) g/dL RDW 13.5 (11.5-15.5) % Plt Count 201 (150-450) k/uL Neutrophils % 62 % Lymphocytes % 21 % Monocytes % 8 % Eosinophils % 7 % Basophils % 1 % Neutrophils # 5.2 (1.3-7.7) k/uL Lymphocytes # 1.8 (1.0-4.8) k/uL Monocytes # 0.6 (0-1.0) k/uL Eosinophils # 0.6 (0-0.7) k/uL Basophils # 0.1 (0-0.2) k/uL Sodium (137-145) mmol/L Potassium (3.5-5.1) mmol/L Chloride (98-107) mmol/L Carbon Dioxide (22-30) mmol/L Anion Gap mmol/L BUN (9-20) mg/dL Creatinine (0.66-1.25) mg/dL Est GFR (CKD-EPI)AfAm (>60 ml/min/1.73 sqM) Est GFR (CKD-EPI)NonAf (>60 ml/min/1.73 sqM) Glucose (74-99) mg/dL Calcium (8.4-10.2) mg/dL Total Bilirubin (0.2-1.3) mg/dL AST (17-59) U/L ALT (21-72) U/L Alkaline Phosphatase (38-126) U/L Total Protein (6.3-8.2) g/dL Albumin (3.5-5.0) g/dL Urine Color Yellow Urine Appearance Cloudy (Clear) Urine pH 7.5 (5.0-8.0) Ur Specific [place] 1.018 (1.001-1.035) Urine Protein Trace H (Negative) Urine Glucose (UA) Negative (Negative) Urine Ketones Negative (Negative) Urine Blood Negative (Negative) Urine Nitrite Negative (Negative) Urine Bilirubin Negative (Negative) Urine Urobilinogen <2.0 (<2.0) mg/dL Ur Leukocyte Esterase Negative (Negative) Urine WBC 1 (0-5) /hpf Urine Opiates Screen Not Detected (NotDetected) Ur Oxycodone Screen Not Detected (NotDetected) Urine Methadone Screen Not Detected (NotDetected) Ur Propoxyphene Screen Not Detected (NotDetected) Ur Barbiturates Screen Not Detected (NotDetected) U Tricyclic Antidepress Not Detected (NotDetected) Ur Phencyclidine Scrn Not Detected (NotDetected) Ur Amphetamines Screen Not Detected (NotDetected) U Methamphetamines Scrn Not Detected (NotDetected) U Benzodiazepines Scrn Detected H (NotDetected) Urine Cocaine Screen Not Detected (NotDetected) U Marijuana (THC) Screen Not Detected (NotDetected) 07/02/17 Range/Units 02:20 WBC (3.8-10.6) k/uL RBC (4.30-5.90) m/uL Hgb (13.0-17.5) gm/dL Hct (39.0-53.0) % MCV (80.0-100.0) fL MCH (25.0-35.0) pg MCHC (31.0-37.0) g/dL RDW (11.5-15.5) % Plt Count (150-450) k/uL Neutrophils % % Lymphocytes % % Monocytes % % Eosinophils % % Basophils % % Neutrophils # (1.3-7.7) k/uL Lymphocytes # (1.0-4.8) k/uL Monocytes # (0-1.0) k/uL Eosinophils # (0-0.7) k/uL Basophils # (0-0.2) k/uL Sodium 144 (137-145) mmol/L Potassium 3.7 (3.5-5.1) mmol/L Chloride 101 (98-107) mmol/L Carbon Dioxide 30 (22-30) mmol/L Anion Gap 13 mmol/L BUN 20 (9-20) mg/dL Creatinine 0.70 (0.66-1.25) mg/dL Est GFR (CKD-EPI)AfAm >90 (>60 ml/min/1.73 sqM) Est GFR (CKD-EPI)NonAf >90 (>60 ml/min/1.73 sqM) Glucose 109 H (74-99) mg/dL Calcium 9.9 (8.4-10.2) mg/dL Total Bilirubin 0.8 (0.2-1.3) mg/dL AST 27 (17-59) U/L ALT 40 (21-72) U/L Alkaline Phosphatase 70 (38-126) U/L Total Protein 5.9 L (6.3-8.2) g/dL Albumin 3.8 (3.5-5.0) g/dL Urine Color Urine Appearance (Clear) Urine pH (5.0-8.0) Ur Specific [place] (1.001-1.035) Urine Protein (Negative) Urine Glucose (UA) (Negative) Urine Ketones (Negative) Urine Blood (Negative) Urine Nitrite (Negative) Urine Bilirubin (Negative) Urine Urobilinogen (<2.0) mg/dL Ur Leukocyte Esterase (Negative) Urine WBC (0-5) /hpf Urine Opiates Screen (NotDetected) Ur Oxycodone Screen (NotDetected) Urine Methadone Screen (NotDetected) Ur Propoxyphene Screen (NotDetected) Ur Barbiturates Screen (NotDetected) U Tricyclic Antidepress (NotDetected) Ur Phencyclidine Scrn (NotDetected) Ur Amphetamines Screen (NotDetected) U Methamphetamines Scrn (NotDetected) U Benzodiazepines Scrn (NotDetected) Urine Cocaine Screen (NotDetected) U Marijuana (THC) Screen (NotDetected) Disposition Clinical Impression: Recovering alcoholic in remission, Depression Disposition: HOME SELF-CARE Condition: Fair Instructions: Depression (ED) Prescriptions: QUEtiapine [SEROquel] 100 mg PO HS #60 tab QUEtiapine [SEROquel] 50 mg PO HS #30 tab Is patient prescribed a controlled substance at d/c from ED?: No Referrals: Trae Magana MD [Primary Care Provider] - 1-2 days
[2017-07-02 16:38] VITALS: BP 136/77; PULSE 72; RESP 16
== END 2017-07-02 16:56 | disposition home or self-care (01) ==
LOC: EC 16:29
DX: F31.30 Bipolar disorder, current episode depressed, mild or moderate severity, unspecified (principal); F10.21 Alcohol dependence, in remission; I69.354 Hemiplegia and hemiparesis following cerebral infarction affecting left non-dominant side; R45.851 Suicidal ideations; R45.1 Restlessness and agitation; J44.9 Chronic obstructive pulmonary disease, unspecified; I10 Essential (primary) hypertension; I25.10 Atherosclerotic heart disease of native coronary artery without angina pectoris; K21.9 Gastro-esophageal reflux disease without esophagitis; I25.2 Old myocardial infarction; Z87.891 Personal history of nicotine dependence; Z79.02 Long term (current) use of antithrombotics/antiplatelets; Z79.899 Other long term (current) drug therapy; Z86.79 Personal history of other diseases of the circulatory system; Z81.8 Family history of other mental and behavioral disorders
CPT/HCPCS: 36415; 80053; 80306; 81001; 82075; 85025; 99284

== ENCOUNTER 2017-10-31 15:34 | Observation (INO) | payer OTHER ==
[2017-10-31 16:37] LABS: Glucose,Whole Blood 180 mg/dL (75-99)
[2017-10-31] MEDS ORDERED: ALBUTEROL NEBULIZED 2.5 MG/3 ML INHALATION PRN (16:52)
[2017-10-31] MEDS: AZITHROMYCIN 500 MG in SODIUM CHLORIDE 0.9% 250 ML IVPB SCH (17:38)
[2017-10-31 17:39] LABS: Basophils % (A) 1 %; Eosinophils # (A) 0.1 k/uL (0-0.7); Eosinophils % (A) 1 %; HCT 42.2 % (39.0-53.0); HGB 14.4 gm/dL (13.0-17.5); Lymphocytes # (A) 1.6 k/uL (1.0-4.8); Lymphocytes % (A) 20 %; MCH 29.2 pg (25.0-35.0); MCHC 34.1 g/dL (31.0-37.0); MCV 85.5 fL (80.0-100.0); Monocytes # (A) 0.5 k/uL (0-1.0); Monocytes % (A) 6 %; Neutrophils # (A) 5.6 k/uL (1.3-7.7); Neutrophils % (A) 70 %; Platelet Count 188 k/uL (150-450); RBC 4.93 m/uL (4.30-5.90); RDW 12.7 % (11.5-15.5); WBC 7.9 k/uL (3.8-10.6)
[2017-10-31] MEDS: SODIUM CHLORIDE 0.9% 1,000 ML IV SCH (17:39)
[2017-10-31 17:51] LABS: ALT 54 U/L (21-72); AST 26 U/L (17-59); Albumin 4.2 g/dL (3.5-5.0); Alkaline Phosphatase 76 U/L (38-126); Anion Gap 9 mmol/L; Blood Urea Nitrogen 28 mg/dL (9-20); Calcium 9.9 mg/dL (8.4-10.2); Carbon Dioxide 28 mmol/L (22-30); Chloride 103 mmol/L (98-107); Glucose 187 mg/dL (74-99); Potassium 3.8 mmol/L (3.5-5.1); Sodium 140 mmol/L (137-145); Total Bilirubin 0.7 mg/dL (0.2-1.3); Total Protein 6.6 g/dL (6.3-8.2)
[2017-10-31] MEDS: methylPREDNISolone SOD SUCCI 40 MG/ML 1 ML VIAL IV SCH (18:47)
[2017-10-31] MEDS: ALBUTEROL NEBULIZED 2.5 MG/3 ML INHALATION SCH (19:59)
--- NOTE | 2017-10-31 21:14 | XR ---
EXAMINATION TYPE: XR chest 2V DATE OF EXAM: 10/31/2017 COMPARISON: Today HISTORY: Cough and congestion TECHNIQUE: Frontal and lateral views of the chest are obtained. FINDINGS: There is coarsening of the lung markings. There are sternal wires. Heart is enlarged. Bony thorax is intact. IMPRESSION: Mild pulmonary fibrosis. No gross heart failure. No change. Mild cardiomegaly.
[2017-10-31 21:17] LABS: Glucose,Whole Blood 192 mg/dL (75-99)
[2017-10-31] MEDS: ATORVASTATIN 40 MG TAB PO SCH (22:40)
[2017-10-31] MEDS: FAMOTIDINE 20 MG TAB PO SCH (22:40)
[2017-10-31] MEDS: LABETALOL 200 MG TAB PO SCH (22:40)
[2017-10-31] MEDS: QUEtiapine 100 MG TAB PO SCH (22:40)
[2017-10-31] MEDS: INSULIN ASPART 100 UNIT/ML 1 ML 10 ML VIAL SQ SCH (22:42)
[2017-11-01] MEDS: methylPREDNISolone SOD SUCCI 40 MG/ML 1 ML VIAL IV SCH ×5 (00:05→23:49)
[2017-11-01 07:27] LABS: Glucose,Whole Blood 237 mg/dL (75-99)
[2017-11-01] MEDS: INSULIN ASPART 100 UNIT/ML 1 ML 10 ML VIAL SQ SCH ×4 (08:02→21:21)
[2017-11-01] MEDS: amLODIPine 5 MG TAB PO SCH (08:03)
[2017-11-01] MEDS: LISINOPRIL 5 MG TAB PO SCH (08:03)
[2017-11-01] MEDS: ESCITALOPRAM 10 MG TAB PO SCH (08:03)
[2017-11-01] MEDS: FAMOTIDINE 20 MG TAB PO SCH ×2 (08:03→20:34)
[2017-11-01] MEDS: AZITHROMYCIN 500 MG in SODIUM CHLORIDE 0.9% 250 ML IVPB SCH (08:03)
[2017-11-01] MEDS: CLOPIDOGREL 75 MG TAB PO SCH (08:03)
[2017-11-01] MEDS: LABETALOL 200 MG TAB PO SCH ×2 (08:03→20:34)
[2017-11-01] MEDS: LORATADINE 10 MG TAB PO SCH (08:04)
[2017-11-01] MEDS: MONTELUKAST 10 MG TAB PO SCH (08:04)
[2017-11-01] MEDS: ALBUTEROL NEBULIZED 2.5 MG/3 ML INHALATION SCH ×4 (08:19→20:20)
[2017-11-01 11:34] LABS: Glucose,Whole Blood 294 mg/dL (75-99)
[2017-11-01] MEDS ORDERED: INSULIN ASPART 100 UNIT/ML 1 ML 10 ML VIAL SQ ONE (12:11)
[2017-11-01] MEDS: SODIUM CHLORIDE 0.9% 1,000 ML IV SCH (12:24)
[2017-11-01 14:36] VITALS: BMI 22.3
[2017-11-01] MEDS: QUEtiapine 100 MG TAB PO SCH ×2 (14:58→15:03)
--- NOTE | 2017-11-01 15:47 | P.CONS ---
History of Present Illness - Chief Complaint Medical debility - History of Present Illness I had the opportunity to see patient for inpatient rehab consultation with regard to medical debility. He was seen with mother and sister. He is admitted to [facility] earlier today with generalized weakness. Chest x-ray demonstrates mild pulmonary fibrosis. PT reports moderate (to minimal) assist for bed mobility and functional debility. Previous functional history as elicited from mom and sister: 52-year-old right- handed white male who is single lives in one floor home with mom. Mom does cooking, laundry, driving and physically assist patient with sponge bath, dressing and wheelchair mobility. He apparently wears incontinence plans which the mother cleans regularly. Mom reports that he had a stroke after heart surgery one year ago and has been dependent on him ever since. At this time, mother feels adequate to take care of patient on return to home and has no specific goals for this. Review of Systems Review of systems: ENT: Denies sneezes or discharge. Eyes: Denies discharge or photophobia. Cardiac: Denies chest pain or palpitation. Pulmonary: Mild shortness of breath. Gastrointestinal: Denies nausea, emesis, constipation, diarrhea. Genitourinary: Denies discharge or frequency. Musculoskeletal: Denies muscle or bone aches. Neurologic: Left-sided plegia and numbness. Endocrine: Denies shakes or sweats. Oncology: Denies cancers. Dermatologic: Denies rash, itching, pruritus. ALLERGY/immunology: Denies sneezes, rashes. Past Medical History Past Medical History: Coronary Artery Disease (CAD), Chest Pain / Angina, Heart Failure, COPD, CVA/TIA, Diabetes Mellitus, GERD/Reflux, Hyperlipidemia, Hypertension, Memory Impairment, Myocardial Infarction ([place]), Pneumonia Additional Past Medical History / Comment(s): bipolar (manic/depressive), 2 days post cagb had stroke affected lt side and memory. "heat rash groin area, applying a&d oitmnet at home".pt not able to ambulate but able to stand with walker very short amt of time to transfer to w/x mom uses gait belt during transfer.pt has had some falls. Last Myocardial Infarction Date:: 2016 History of Any Multi-Drug Resistant Organisms: None Reported Past Surgical History: Appendectomy, Coronary Bypass/CABG, Heart Catheterization , Orthopedic Surgery Additional Past Surgical History / Comment(s): past trach, quad cabg, lt femur ( broken) had sx Past Anesthesia/Blood Transfusion Reactions: No Reported Reaction Smoking Status: Former smoker - Past Family History Mother Family Medical History: Hypertension Father Family Medical History: Cancer, Coronary Artery Disease (CAD), Diabetes Mellitus , Pneumonia, Prostate Disorder Additional Family Medical History / Comment(s): Bipolar disorder, throat cancer , prostate cancer Medications and Allergies Home Medications Medication Instructions Recorded Confirmed Type Atorvastatin [Lipitor] 40 mg PO HS 07/01/17 10/31/17 History Clopidogrel Bisulfate [Plavix] 75 mg PO DAILY 07/01/17 10/31/17 History Escitalopram Oxalate [Lexapro] 10 mg PO DAILY 07/01/17 10/31/17 History Famotidine [Pepcid] 20 mg PO BID 07/01/17 10/31/17 History Labetalol HCl 400 mg PO BID 07/01/17 10/31/17 History Lisinopril [Zestril] 5 mg PO DAILY 07/01/17 10/31/17 History amLODIPine BESYLATE [Norvasc] 5 mg PO DAILY 07/01/17 10/31/17 History Amoxic-Pot Clav 875-125Mg 1 tab PO BID 10/31/17 10/31/17 History [Augmentin 875-125] Cetirizine HCl [Zyrtec] 10 mg PO DAILY 10/31/17 10/31/17 History Montelukast [Singulair] 10 mg PO DAILY 10/31/17 10/31/17 History QUEtiapine [SEROquel] 100 mg PO BID@16,20 10/31/17 10/31/17 History methylPREDNISolone Dose Pack See Taper PO DIRECTED 10/31/17 10/31/17 History [Medrol Dose Pack] Allergies Allergy/AdvReac Type Severity Reaction Status Date / Time perfume Allergy Dyspnea Verified 10/31/17 16:55 Physical Exam Vitals: Vital Signs Temp Pulse Pulse Resp BP Pulse Ox 11/01/17 15:00 97.5 F L 80 18 130/74 96 11/01/17 11:47 76 11/01/17 11:39 76 11/01/17 08:30 76 11/01/17 08:19 76 11/01/17 06:21 97.6 F 78 17 122/72 95 10/31/17 23:00 98.6 F 74 18 150/92 95 10/31/17 20:07 74 10/31/17 20:02 72 10/31/17 16:15 99.2 F 71 16 184/100 96 Intake and Output 11/01/17 11/01/17 11/01/17 06:59 14:59 22:59 Other: Voiding Method Incontinent # Voids 3 2 # Bowel Movements 0 Weight 66.5 kg Skin: Good color, texture, turgor. General: Thin build and comfortable appearance. Head: Normocephalic, atraumatic. Eyes: Symmetric. Pupils equal round. Ears: Symmetric. Hearing within normal limits. Mouth: Clear. Neck: Supple. Carotid without bruit. Cardiac: Regular rate and rhythm. Lungs: Clear anteriorly and posteriorly. Abdomen: Soft active nontender. Extremities: Normal tone. Neurological: Mental status: Alert, cooperative, pleasant. Cranial nerves: Symmetric facial tone and trapezius. Motor: Normal right arm and leg and plegic left side. Sensation: Depressed left side. DTRs: Symmetric and equal throughout. Mobility: Requires physical assistance for any mobility. Results CBC & Chem 7: 10/31/17 17:25 10/31/17 17:25 Labs: Abnormal Lab Results - Last 24 Hours (Table) 10/31/17 10/31/17 10/31/17 Range/Units 16:35 17:25 21:14 BUN 28 H (9-20) mg/dL Glucose 187 H (74-99) mg/dL POC Glucose (mg/dL) 180 H 192 H (75-99) mg/dL 11/01/17 11/01/17 Range/Units 07:24 11:25 BUN (9-20) mg/dL Glucose (74-99) mg/dL POC Glucose (mg/dL) 237 H 294 H (75-99) mg/dL Assessment and Plan (1) Acute respiratory failure with hypoxia Current Visit: No Status: Acute Code(s): J96.01 - ACUTE RESPIRATORY FAILURE WITH HYPOXIA SNOMED Code(s): 43932403 Plan: Impression: 1. Medical debility. 2. Respiratory failure, acute, with hypoxia. 3. History of stroke and left hemiplegia. 4. Diabetes. 5. CHF. 6. Hypertension. 7. Coronary disease with history angina, [place], heart surgery. Comments and plan: PT ongoing and have added OT. Have discussed case with mom and sister. Mom has been taking care of patient for the last year and has no specific goals or requirements for return to home. In fact feels ready to take patient home if he were to return today. At this time, do not anticipate need for inpatient rehab.
[2017-11-01 17:16] LABS: Glucose,Whole Blood 235 mg/dL (75-99)
[2017-11-01] MEDS ORDERED: QUEtiapine 50 MG TAB PO SCH (20:00)
[2017-11-01] MEDS: ATORVASTATIN 40 MG TAB PO SCH (20:34)
[2017-11-01 21:16] LABS: Glucose,Whole Blood 272 mg/dL (75-99)
--- NOTE | 2017-11-01 23:50 | HP ---
HISTORY AND PHYSICAL CHIEF COMPLAINT: A 51-year-old white male with prior stroke with COPD, asthma exacerbation and tracheobronchitis and possible pulmonary fibrosis. His breathing and congestion have been worse over the past week, failing outpatient treatment with 2 antibiotics, updraft treatments and steroids. He had a recent stroke in the past year. REVIEW OF SYSTEMS: Fourteen point review of systems negative except for mentioned in HPI. PAST HISTORY: Coronary artery disease, angina, heart failure, COPD, CVA, diabetes mellitus, GERD, dyslipidemia, hypertension, memory impairment, coronary artery disease, pneumonia. SURGICAL HISTORY: Appendectomy, CABG surgery, heart catheterization, orthopedic surgery. SOCIAL HISTORY: Former smoker. FAMILY HISTORY: Mother with hypertension. Father had cancer, coronary artery disease, diabetes mellitus, pneumonia. HOME MEDICINES: 1. Zestril 5 mg daily. 2. Amlodipine 5 mg daily. 3. Labetalol 400 b.i.d. 4. Pepcid 20 mg b.i.d. 5. Lexapro 10 mg daily. 6. Plavix 75 mg daily. 7. Lipitor 40 mg daily. 8. Singular 10 mg daily. 9. Zyrtec 10 mg daily. 10.Seroquel 100 mg b.i.d. ALLERGIES: PERFUME. PHYSICAL EXAM: Temp 97.5, pulse 60s-70s, respiratory 18-20, blood pressure 120s-130s/70s, O2 96% on room air. Lungs show scattered rhonchi x4, wheezes x4. CARDIOVASCULAR: S1, S2. ABDOMEN: Soft, nontender. NECK: Supple. No signs of clubbing, edema. HEAD: Normocephalic atraumatic. OPHTHALMOLOGIC: Pupils equal, round, react to light and accommodation. White count 7.9, hemoglobin is 14.4. BUN is 28, creatinine 0.7, glucose in mid 100s. ASSESSMENT: 1. Medical debility. 2. Acute chronic obstructive pulmonary disease. 3. Pulmonary fibrosis. 4. Tracheobronchitis, rule out pneumonia. 5. Prior stroke with left hemiplegia. 6. Diabetes. 7. Hypertension. 8. Prior coronary artery bypass graft. 9. Coronary artery disease. The patient will be discharged home tomorrow on oral antibiotics and updraft treatments and steroids. MMODL / IJN: [id number] /
[2017-11-02] MEDS: methylPREDNISolone SOD SUCCI 40 MG/ML 1 ML VIAL IV SCH (05:13)
[2017-11-02 07:44] VITALS: BP 145/76; RESP 20; TEMP 97
[2017-11-02 08:04] LABS: Glucose,Whole Blood 207 mg/dL (75-99)
[2017-11-02] MEDS: amLODIPine 5 MG TAB PO SCH (08:12)
[2017-11-02] MEDS: MONTELUKAST 10 MG TAB PO SCH (08:12)
[2017-11-02] MEDS: CLOPIDOGREL 75 MG TAB PO SCH (08:12)
[2017-11-02] MEDS: FAMOTIDINE 20 MG TAB PO SCH (08:12)
[2017-11-02] MEDS: INSULIN ASPART 100 UNIT/ML 1 ML 10 ML VIAL SQ SCH (08:12)
[2017-11-02] MEDS: LISINOPRIL 5 MG TAB PO SCH (08:12)
[2017-11-02] MEDS: LABETALOL 200 MG TAB PO SCH (08:12)
[2017-11-02] MEDS: ESCITALOPRAM 10 MG TAB PO SCH (08:12)
[2017-11-02] MEDS: SODIUM CHLORIDE 0.9% 1,000 ML IV SCH (08:16)
[2017-11-02] MEDS: LORATADINE 10 MG TAB PO SCH (08:17)
[2017-11-02] MEDS ORDERED: AZITHROMYCIN 500 MG TAB PO SCH (09:00)
[2017-11-02] MEDS: ALBUTEROL NEBULIZED 2.5 MG/3 ML INHALATION SCH ×2 (09:18→12:30)
[2017-11-02 12:10] LABS: Glucose,Whole Blood 219 mg/dL (75-99)
[2017-11-02 12:37] VITALS: PULSE 76
== END 2017-11-02 12:51 | disposition home health service (06) ==
LOC: INTOOBSV 15:50 → 4MS4W 15:50 → UNDODISIN 11-02 12:51
PROVIDERS: ADMIT Family Medicine; ATTEND Family Medicine
DX: J44.0 Chronic obstructive pulmonary disease with (acute) lower respiratory infection (principal); J96.01 Acute respiratory failure with hypoxia; I69.354 Hemiplegia and hemiparesis following cerebral infarction affecting left non-dominant side; J45.901 Unspecified asthma with (acute) exacerbation; J20.9 Acute bronchitis, unspecified; J84.10 Pulmonary fibrosis, unspecified; I11.0 Hypertensive heart disease with heart failure; I50.9 Heart failure, unspecified; R32 Unspecified urinary incontinence; L74.0 Miliaria rubra; K21.9 Gastro-esophageal reflux disease without esophagitis; J44.1 Chronic obstructive pulmonary disease with (acute) exacerbation; E78.5 Hyperlipidemia, unspecified; E11.9 Type 2 diabetes mellitus without complications; F31.9 Bipolar disorder, unspecified; I25.10 Atherosclerotic heart disease of native coronary artery without angina pectoris; I25.2 Old myocardial infarction; Z79.02 Long term (current) use of antithrombotics/antiplatelets; Z79.899 Other long term (current) drug therapy; Z95.1 Presence of aortocoronary bypass graft; Z87.891 Personal history of nicotine dependence; Z90.89 Acquired absence of other organs; Z91.048 Other nonmedicinal substance allergy status; Z82.49 Family history of ischemic heart disease and other diseases of the circulatory system; Z83.3 Family history of diabetes mellitus; Z80.42 Family history of malignant neoplasm of prostate; Z80.8 Family history of malignant neoplasm of other organs or systems; Z81.8 Family history of other mental and behavioral disorders; Z82.5 Family history of asthma and other chronic lower respiratory diseases
CPT/HCPCS: 96376 ×2; 96365; 96366 ×2; 96367; 96375; 94640 ×5; 97530; 97162; 97166; 85379; 83880; 80053; 85025; 71046; G0379; G0378 ×3; J2920 ×3; J0456 ×2; J0696 ×2

== ENCOUNTER → 2017-10-31 | Outpatient (CLI) | payer OTHER ==
--- NOTE | 2017-10-31 15:06 | XR ---
EXAMINATION TYPE: XR chest 2V DATE OF EXAM: 10/31/2017 COMPARISON: Prior chest x-ray 06/24/2017 HISTORY: Cough TECHNIQUE: Frontal and lateral views of the chest are obtained. FINDINGS: Patient is post median sternotomy. Lung volumes are low. Heart size may be accentuated by rotation, technique. No evident pneumothorax or pleural effusion. Pulmonary vascularity and purvi show stable appearance. Interstitium appears prominently. IMPRESSION: Expiratory rotated exam. Possible cardiomegaly. Correlate to exclude pulmonary venous hy pertension and interstitial edema. Follow-up as indicated.
== END ==
LOC: RADXRMAIN 13:10
PROVIDERS: ATTEND Family Medicine
DX: R05 Cough (principal)
CPT/HCPCS: 71046

== ENCOUNTER 2017-11-10 10:42 | Observation (INO) | payer OTHER ==
[2017-11-10] MEDS ORDERED: methylPREDNISolone SOD SUCCI 125 MG/2 ML VIAL IV STA (11:14)
[2017-11-10] MEDS ORDERED: IPRATROPIUM-ALBUTEROL 3 ML NEB INHALATION STA (11:14)
--- NOTE | 2017-11-10 11:17 | ED ---
General Adult HPI - General Chief complaint: Shortness of Breath Stated complaint: JERARDO Time Seen by Provider: 11/10/17 10:56 Source: patient, RN notes reviewed, old records reviewed Mode of arrival: wheelchair Limitations: no limitations - History of Present Illness Initial comments: 52-year-old male presenting for evaluation of cough and dyspnea. Patient has had symptoms for the past one month. He has been seen by his primary care physician, prescribed both antibiotics and steroids. He continues to have cough which is productive at times. Patient has history of CVA with residual left-sided weakness. He was admitted with similar symptoms approximately one week ago. He has failed to improve. He is accompanied by his mother who is his primary caregiver. No history of vomiting or diarrhea. No history of heart failure, patient does have history of CAD status post CABG. Denies lower extremity swelling or calf tenderness. - Related Data Home Medications Medication Instructions Recorded Confirmed Atorvastatin [Lipitor] 40 mg PO DAILY@199907/01/17 11/10/17 Clopidogrel Bisulfate [Plavix] 75 mg PO DAILY@159907/01/17 11/10/17 Escitalopram Oxalate [Lexapro] 10 mg PO DAILY 07/01/17 11/10/17 Famotidine [Pepcid] 20 mg PO DAILY@159907/01/17 11/10/17 Labetalol HCl 400 mg PO BID@0800,199907/01/17 11/10/17 Lisinopril [Zestril] 5 mg PO DAILY@1600 07/01/17 11/10/17 amLODIPine BESYLATE [Norvasc] 5 mg PO DAILY@1600 07/01/17 11/10/17 Montelukast [Singulair] 10 mg PO DAILY 10/31/17 11/10/17 QUEtiapine [SEROquel] 50 mg PO BID@1600,199910/31/17 11/10/17 Ciprofloxacin HCl [Cipro] 500 mg PO Q12HR 11/10/17 11/10/17 Allergies Allergy/AdvReac Type Severity Reaction Status Date / Time perfume Allergy Dyspnea Verified 11/10/17 11:16 cheese AdvReac Unknown Verified 11/10/17 11:22 milk AdvReac Unknown Verified 11/10/17 11:22 Review of Systems ROS Statement: Those systems with pertinent positive or pertinent negative responses have been documented in the HPI. ROS Other: All systems not noted in ROS Statement are negative. Past Medical History Past Medical History: Coronary Artery Disease (CAD), Chest Pain / Angina, Heart Failure, COPD, CVA/TIA, Diabetes Mellitus, GERD/Reflux, Hyperlipidemia, Hypertension, Memory Impairment, Myocardial Infarction ([place]), Pneumonia Additional Past Medical History / Comment(s): bipolar (manic/depressive), 2 days post cagb had stroke affected lt side and memory. "heat rash groin area, applying a&d oitmnet at home".pt not able to ambulate but able to stand with walker very short amt of time to transfer to w/x mom uses gait belt during transfer.pt has had some falls. Last Myocardial Infarction Date:: 2016 History of Any Multi-Drug Resistant Organisms: None Reported Past Surgical History: Appendectomy, Coronary Bypass/CABG, Heart Catheterization , Orthopedic Surgery Additional Past Surgical History / Comment(s): past trach, quad cabg, lt femur ( broken) had sx Past Anesthesia/Blood Transfusion Reactions: No Reported Reaction Past Psychological History: Bipolar Smoking Status: Former smoker Past Alcohol Use History: None Reported Past Drug Use History: None Reported - Past Family History Mother Family Medical History: Hypertension Father Family Medical History: Cancer, Coronary Artery Disease (CAD), Diabetes Mellitus , Pneumonia, Prostate Disorder Additional Family Medical History / Comment(s): Bipolar disorder, throat cancer , prostate cancer General Exam Limitations: no limitations General appearance: alert, in no apparent distress Head exam: Present: atraumatic Eye exam: Present: normal appearance, PERRL ENT exam: Present: normal exam Neck exam: Present: normal inspection. Absent: tenderness, meningismus Respiratory exam: Present: rhonchi, decreased breath sounds. Absent: respiratory distress (mild) Cardiovascular Exam: Present: regular rate, normal rhythm GI/Abdominal exam: Present: soft. Absent: distended, tenderness, guarding Extremities exam: Absent: pedal edema, calf tenderness Neurological exam: Present: alert, motor sensory deficit (Residual left-sided weakness) Skin exam: Present: warm, dry, intact. Absent: cyanosis, diaphoretic Course Vital Signs 11/10/17 11/10/17 11/10/17 10:49 11:57 12:27 Temperature 98.2 F Pulse Rate 78 71 72 Respiratory 18 16 Rate Blood Pressure 115/72 130/76 O2 Sat by Pulse 95 96 Oximetry 11/10/17 13:53 Temperature 99.1 F Pulse Rate 63 Respiratory 20 Rate Blood Pressure 160/89 O2 Sat by Pulse 98 Oximetry EKG Findings - EKG Comments: EKG Findings:: Normal sinus rhythm, left axis deviation, left ventricular hypertrophy, rate of 74, IL interval 178, QRS duration 92, QTC 435, no ST segment elevation or depression Medical Decision Making - Medical Decision Making 52-year-old male presenting with cough and dyspnea. Patient has received both inpatient and outpatient treatment for symptoms. He has completed antibiotic regimen and steroids as an outpatient. Symptoms have not improved. Chest x- ray obtained in the emergency department, negative for focal pneumonia, negative for pulmonary edema or acute findings. Patient has mild leukocytosis 11.2, hemoglobin stable at 13.5, lactic acid is normal 1.3, electrolytes are within normal limits. BNP is negative. Patient will be admitted for further symptomatically treatment of dyspnea, COPD and bronchitis. He is placed on Levaquin, and continued steroids. Case discussed with the primary and admitting physician, will also place pulmonology on consult. - Lab Data Result diagrams: 11/10/17 11:30 11/10/17 11:30 Lab Results 11/10/17 11/10/17 11/10/17 Range/Units 11:30 11:30 11:30 WBC 11.2 H (3.8-10.6) k/uL RBC 4.63 (4.30-5.90) m/uL Hgb 13.5 (13.0-17.5) gm/dL Hct 40.6 (39.0-53.0) % MCV 87.8 (80.0-100.0) fL MCH 29.1 (25.0-35.0) pg MCHC 33.2 (31.0-37.0) g/dL RDW 13.0 (11.5-15.5) % Plt Count 176 (150-450) k/uL Neutrophils % 78 % Lymphocytes % 13 % Monocytes % 6 % Eosinophils % 2 % Basophils % 0 % Neutrophils # 8.8 H (1.3-7.7) k/uL Lymphocytes # 1.4 (1.0-4.8) k/uL Monocytes # 0.7 (0-1.0) k/uL Eosinophils # 0.2 (0-0.7) k/uL Basophils # 0.0 (0-0.2) k/uL PT (9.0-12.0) sec INR (<1.2) APTT (22.0-30.0) sec Sodium 139 (137-145) mmol/L Potassium 3.8 (3.5-5.1) mmol/L Chloride 105 (98-107) mmol/L Carbon Dioxide 26 (22-30) mmol/L Anion Gap 8 mmol/L BUN 22 H (9-20) mg/dL Creatinine 0.73 (0.66-1.25) mg/dL Est GFR (CKD-EPI)AfAm >90 (>60 ml/min/1.73 sqM) Est GFR (CKD-EPI)NonAf >90 (>60 ml/min/1.73 sqM) Glucose 309 H (74-99) mg/dL Plasma Lactic Acid Jayce (0.7-2.0) mmol/L Calcium 9.4 (8.4-10.2) mg/dL Magnesium 1.9 (1.6-2.3) mg/dL Total Bilirubin 0.8 (0.2-1.3) mg/dL AST 21 (17-59) U/L ALT 39 (21-72) U/L Alkaline Phosphatase 65 (38-126) U/L Total Creatine Kinase 50 L (55-170) U/L CK-MB (CK-2) 1.8 (0.0-2.4) ng/mL CK-MB (CK-2) Rel Index 3.6 Troponin I 0.020 (0.000-0.034) ng/mL NT-Pro-B Natriuret Pep pg/mL Total Protein 5.6 L (6.3-8.2) g/dL Albumin 3.3 L (3.5-5.0) g/dL 11/10/17 11/10/17 11/10/17 Range/Units 11:30 11:30 12:25 WBC (3.8-10.6) k/uL RBC (4.30-5.90) m/uL Hgb (13.0-17.5) gm/dL Hct (39.0-53.0) % MCV (80.0-100.0) fL MCH (25.0-35.0) pg MCHC (31.0-37.0) g/dL RDW (11.5-15.5) % Plt Count (150-450) k/uL Neutrophils % % Lymphocytes % % Monocytes % % Eosinophils % % Basophils % % Neutrophils # (1.3-7.7) k/uL Lymphocytes # (1.0-4.8) k/uL Monocytes # (0-1.0) k/uL Eosinophils # (0-0.7) k/uL Basophils # (0-0.2) k/uL PT 10.3 (9.0-12.0) sec INR 1.1 (<1.2) APTT 23.6 (22.0-30.0) sec Sodium (137-145) mmol/L Potassium (3.5-5.1) mmol/L Chloride (98-107) mmol/L Carbon Dioxide (22-30) mmol/L Anion Gap mmol/L BUN (9-20) mg/dL Creatinine (0.66-1.25) mg/dL Est GFR (CKD-EPI)AfAm (>60 ml/min/1.73 sqM) Est GFR (CKD-EPI)NonAf (>60 ml/min/1.73 sqM) Glucose (74-99) mg/dL Plasma Lactic Acid Jayce 1.3 (0.7-2.0) mmol/L Calcium (8.4-10.2) mg/dL Magnesium (1.6-2.3) mg/dL Total Bilirubin (0.2-1.3) mg/dL AST (17-59) U/L ALT (21-72) U/L Alkaline Phosphatase (38-126) U/L Total Creatine Kinase (55-170) U/L CK-MB (CK-2) (0.0-2.4) ng/mL CK-MB (CK-2) Rel Index Troponin I (0.000-0.034) ng/mL NT-Pro-B Natriuret Pep 243 pg/mL Total Protein (6.3-8.2) g/dL Albumin (3.5-5.0) g/dL Disposition Clinical Impression: COPD (chronic obstructive pulmonary disease) Disposition: ADMITTED IP TO THIS [facility] Condition: Stable Is patient prescribed a controlled substance at d/c from ED?: No Referrals: Trae Magana MD [Primary Care Provider] - 1-2 days Decision to Admit Reason: Admit from EC Decision Date: 11/10/17 Decision Time: 13:58
[2017-11-10 11:46] LABS: Basophils % (A) 0 %; Eosinophils # (A) 0.2 k/uL (0-0.7); Eosinophils % (A) 2 %; HCT 40.6 % (39.0-53.0); HGB 13.5 gm/dL (13.0-17.5); Lymphocytes # (A) 1.4 k/uL (1.0-4.8); Lymphocytes % (A) 13 %; MCH 29.1 pg (25.0-35.0); MCHC 33.2 g/dL (31.0-37.0); MCV 87.8 fL (80.0-100.0); Monocytes # (A) 0.7 k/uL (0-1.0); Monocytes % (A) 6 %; Neutrophils # (A) 8.8 k/uL (1.3-7.7); Neutrophils % (A) 78 %; Platelet Count 176 k/uL (150-450); RBC 4.63 m/uL (4.30-5.90); WBC 11.2 k/uL (3.8-10.6)
[2017-11-10 11:58] LABS: ALT 39 U/L (21-72); AST 21 U/L (17-59); Albumin 3.3 g/dL (3.5-5.0); Alkaline Phosphatase 65 U/L (38-126); Anion Gap 8 mmol/L; Blood Urea Nitrogen 22 mg/dL (9-20); Calcium 9.4 mg/dL (8.4-10.2); Carbon Dioxide 26 mmol/L (22-30); Chloride 105 mmol/L (98-107); Glucose 309 mg/dL (74-99); Magnesium 1.9 mg/dL (1.6-2.3); Potassium 3.8 mmol/L (3.5-5.1); Sodium 139 mmol/L (137-145); Total Bilirubin 0.8 mg/dL (0.2-1.3); Total Protein 5.6 g/dL (6.3-8.2)
[2017-11-10 12:12] LABS: Creatine Kinase MB 1.8 ng/mL (0.0-2.4); Troponin I 0.02 ng/mL (0.000-0.034)
[2017-11-10 12:18] LABS: INR 1.1 (<1.2); Partial Thromboplastin Time 23.6 sec (22.0-30.0); Prothrombin Time 10.3 sec (9.0-12.0)
--- NOTE | 2017-11-10 12:57 | XR ---
EXAMINATION TYPE: XR chest 2V DATE OF EXAM: 11/10/2017 COMPARISON: 10/31/2017 INDICATION: Difficulty breathing TECHNIQUE: Frontal and lateral views of the chest are obtained. FINDINGS: The heart size is enlarged. The pulmonary vasculature is normal. The lungs are clear. Sternotomy wires are in the midline. IMPRESSION: 1. No acute pulmonary process.
[2017-11-10] MEDS ORDERED: IPRATROPIUM-ALBUTEROL 3 ML NEB INHALATION PRN (13:53)
[2017-11-10] MEDS: QUEtiapine 50 MG TAB PO SCH ×2 (16:30→21:00)
[2017-11-10] MEDS: amLODIPine 5 MG TAB PO SCH (16:30)
[2017-11-10] MEDS: CLOPIDOGREL 75 MG TAB PO SCH (16:30)
[2017-11-10] MEDS: LISINOPRIL 5 MG TAB PO SCH (16:31)
[2017-11-10] MEDS: FAMOTIDINE 20 MG TAB PO SCH (16:31)
[2017-11-10] MEDS: IPRATROPIUM-ALBUTEROL 3 ML NEB INHALATION SCH ×2 (16:59→20:38)
[2017-11-10 17:17] LABS: Glucose,Whole Blood 278 mg/dL (75-99)
[2017-11-10] MEDS: INSULIN ASPART 100 UNIT/ML 1 ML 10 ML VIAL SQ SCH ×2 (18:01→21:00)
[2017-11-10] MEDS: methylPREDNISolone SOD SUCCI 125 MG/2 ML VIAL IV SCH (18:04)
--- NOTE | 2017-11-10 19:36 | CT ---
EXAMINATION TYPE: CT chest wo con DATE OF EXAM: 11/10/2017 COMPARISON: 01/08/2017 HISTORY: cough CT DLP: 471.3 mGycm. Automated Exposure Control for Dose Reduction was Utilized. TECHNIQUE: CT scan of the thorax is performed without IV contrast. FINDINGS: There is patchy right lower lobe pulmonary infiltrate and atelectasis. There is minimal subsegmental atelectasis left lower lobe. There is no evidence of a pulmonary mass. There are sternal wires. There is a few peritracheal lymph nodes that measure up to 1.2 cm. There are no hilar masses. There is no pericardial effusion. There is coronary artery calcification. Heart is slightly enlarged. The bony th orax is intact. Upper abdominal soft tissues are unremarkable. There is small hiatal hernia. IMPRESSION: There is right lower lobe pneumonia and atelectasis. Cardiomegaly. Lungs are improved in appearance compared to old CT scan. Nonspecific mediastinal lymph nodes are stable compared to old ex am.
[2017-11-10 20:29] LABS: Glucose,Whole Blood 314 mg/dL (75-99)
[2017-11-10] MEDS: ATORVASTATIN 40 MG TAB PO SCH (21:00)
[2017-11-10] MEDS: LABETALOL 200 MG TAB PO SCH (21:00)
--- NOTE | 2017-11-10 21:57 | HP ---
HISTORY AND PHYSICAL DATE OF SERVICE: 11/10/2017. CHIEF COMPLAINT: Cough, shortness of breath, worsening, failed outpatient treatment, started to vomit, secondary to pain. No recent antibiotic use. She is admitted for acute asthma exacerbation/COPD exacerbation with tracheobronchitis versus pneumonia. CT scan of the chest is pending. Chest x-ray is negative. MEDICATIONS: Home medicines please see old chart. He had a recent stroke with hemiparesis on the left side. SOCIAL HISTORY: Nonsmoker. No alcohol. No illicit drugs. Lives with his family. REVIEW OF SYSTEMS: Fourteen point review of systems negative except for mentioned in HPI. PHYSICAL EXAM: Vital signs stable, afebrile. Cardiovascular S1, S2. LUNGS: Scattered rhonchi and wheeze x4. HEMATOLOGY: Negative Homans. Psych: Fair mood and affect. NEUROLOGIC: Alert and oriented x3. Ophthalmologic: Pupils equal, round, react to light and accommodation. ASSESSMENT: Asthma, chronic obstructive pulmonary disease exacerbation, tracheobronchitis, rule out pneumonia due to persistent cough and possible reflux. Will check maybe a reflux study as he continues to cough and get recurrent cough when he goes home. IV steroids. IV antibiotics and updraft treatments. MMODL / IJN: [id number] /
[2017-11-11] MEDS: methylPREDNISolone SOD SUCCI 125 MG/2 ML VIAL IV SCH ×4 (00:50→17:04)
[2017-11-11 04:33] LABS: Hemoglobin A1C 7.3 % (4.0-6.0)
[2017-11-11 06:49] LABS: Glucose,Whole Blood 328 mg/dL (75-99)
[2017-11-11] MEDS: IPRATROPIUM-ALBUTEROL 3 ML NEB INHALATION SCH ×4 (08:04→21:14)
[2017-11-11] MEDS: LEVOFLOXACIN 500 MG TAB PO SCH (08:16)
[2017-11-11] MEDS: INSULIN ASPART 100 UNIT/ML 1 ML 10 ML VIAL SQ SCH ×4 (08:16→20:47)
[2017-11-11] MEDS: MONTELUKAST 10 MG TAB PO SCH (08:16)
[2017-11-11] MEDS: LABETALOL 200 MG TAB PO SCH ×2 (08:16→20:43)
[2017-11-11] MEDS: ESCITALOPRAM 10 MG TAB PO SCH (08:16)
[2017-11-11 11:47] LABS: Glucose,Whole Blood 237 mg/dL (75-99)
--- NOTE | 2017-11-11 13:19 | CONS ---
CONSULTATION Matt uGerrero is a 52-year-old male who presented to the ED at [facility] with increasing shortness of breath for about 1 day's duration. He was seen by his primary care physician, prescribed antibiotics and steroids and failed to improve. He has previously had a left CVA with some left-sided weakness, but does not give any history of choking. He was seen in the ED and subsequently admitted for further evaluation and management. His past medical history is positive for coronary artery disease, history of COPD, history of previous CVA with left-sided weakness. History of hypertension, hyperlipidemia, memory impairment, bipolar disorder, previous tracheostomy, previous left femur fracture. SOCIAL HISTORY: Patient is a former smoker. He quit smoking over 10 years ago. Does not drink alcohol excessively. FAMILY HISTORY: Positive for hypertension in his mother. Diabetes mellitus, pneumonia, and cancer in his father. REVIEW OF SYSTEMS: Noncontributory. His medications prior to admission was ciprofloxacin, amlodipine, Seroquel, Singulair, Zestril, labetalol, Pepcid, Lexapro, Plavix, and Lipitor. PHYSICAL EXAMINATION: Respiratory rate of 18, pulse rate of 83, temperature 97.6, blood pressure 120/75, O2 saturation on room air is 93%. HEENT: Reveals pupils that are equal. CHEST: Reveals decreased breath sounds. Prolonged expiration. Bilateral expiratory wheeze. CARDIOVASCULAR SYSTEM: Reveals S1, S2. Abdomen is soft. There is no pedal edema. He has left hemiparesis. White count is 11.2, hemoglobin of 13.5, sodium 139, potassium 3.8, chloride 105, bicarb 26, BUN 22, creatinine 0.73. Chest CT scan was done which showed evidence of right lower lobe pneumonia with atelectatic change, but actually looks better compared to previous CT. IMPRESSION: 1. Asthma with chronic obstructive pulmonary disease with acute exacerbation. 2. Aspiration pneumonia. 3. Cerebrovascular accident with residual left-sided weakness. Continue steroids, montelukast, keep him on GI and DVT prophylaxis. Keep him on bronchodilators, changes his antibiotics to Levaquin and Zosyn to cover for anaerobes as well as gram negatives. Keep him on GI and DVT prophylaxis. Prognosis guarded. MMODL / IJN: [id number] /
[2017-11-11] MEDS: PIPERACILLIN-TAZOBACTAM 3.375 GM in DEXTROSE/WATER 1 50ML.BAG IVPB SCH (16:47)
[2017-11-11] MEDS: amLODIPine 5 MG TAB PO SCH (16:47)
[2017-11-11] MEDS: QUEtiapine 50 MG TAB PO SCH ×2 (16:47→20:43)
[2017-11-11] MEDS: LISINOPRIL 5 MG TAB PO SCH (16:48)
[2017-11-11] MEDS: NYSTATIN 100,000UNIT/GM CREAM 30 GM TUBE TOPICAL SCH ×2 (16:48→20:47)
[2017-11-11] MEDS: FAMOTIDINE 20 MG TAB PO SCH (16:48)
[2017-11-11] MEDS: CLOPIDOGREL 75 MG TAB PO SCH (16:48)
[2017-11-11 17:09] LABS: Glucose,Whole Blood 253 mg/dL (75-99)
--- NOTE | 2017-11-11 20:31 | PN ---
PROGRESS NOTE SUBJECTIVE: A 52-year-old white male admitted with right lower lobe pneumonia, COPD exacerbation, possible aspiration pneumonia. Remains on Levaquin and Zosyn. CT scan of the chest shows right lower lobe pneumonia. OBJECTIVE: Lungs scattered rhonchi, scattered wheeze. GI soft. Hematology negative Homans. Temp 96.6, pulse 89, respiration 18 20, 94% on room air, blood pressure 106/67. ASSESSMENT: 1. Right lower lobe pneumonia. 2. Chronic obstructive pulmonary disease exacerbation. PLAN: Continue with Zosyn, Levaquin and steroids. Await pulmonary recommendations. MMODL / IJN: [id number] /
[2017-11-11 20:40] LABS: Glucose,Whole Blood 258 mg/dL (75-99)
[2017-11-11] MEDS: ATORVASTATIN 40 MG TAB PO SCH (20:43)
[2017-11-11] MEDS: HEPARIN SODIUM,PORCINE 5,000 UNIT/ML 1 ML VIAL SQ SCH (20:44)
[2017-11-11] MEDS: BUDESONIDE 0.5 MG/2 ML NEBU INHALATION SCH (21:14)
[2017-11-12] MEDS: PIPERACILLIN-TAZOBACTAM 3.375 GM in DEXTROSE/WATER 1 50ML.BAG IVPB SCH ×3 (00:26→17:03)
[2017-11-12] MEDS: methylPREDNISolone SOD SUCCI 125 MG/2 ML VIAL IV SCH ×4 (00:27→17:04)
[2017-11-12 07:08] LABS: Glucose,Whole Blood 266 mg/dL (75-99)
[2017-11-12] MEDS: IPRATROPIUM-ALBUTEROL 3 ML NEB INHALATION SCH ×4 (07:42→20:23)
[2017-11-12] MEDS: BUDESONIDE 0.5 MG/2 ML NEBU INHALATION SCH ×2 (07:42→20:23)
[2017-11-12] MEDS: LABETALOL 200 MG TAB PO SCH ×2 (08:37→20:56)
[2017-11-12] MEDS: ESCITALOPRAM 10 MG TAB PO SCH (08:38)
[2017-11-12] MEDS: LEVOFLOXACIN 500 MG TAB PO SCH (08:38)
[2017-11-12] MEDS: HEPARIN SODIUM,PORCINE 5,000 UNIT/ML 1 ML VIAL SQ SCH ×2 (08:38→20:56)
[2017-11-12] MEDS: INSULIN ASPART 100 UNIT/ML 1 ML 10 ML VIAL SQ SCH ×4 (08:40→21:00)
[2017-11-12] MEDS: MONTELUKAST 10 MG TAB PO SCH (08:40)
[2017-11-12] MEDS: NYSTATIN 100,000UNIT/GM CREAM 30 GM TUBE TOPICAL SCH ×3 (08:40→21:02)
[2017-11-12 12:15] LABS: Glucose,Whole Blood 246 mg/dL (75-99)
[2017-11-12] MEDS: LISINOPRIL 5 MG TAB PO SCH (17:03)
[2017-11-12] MEDS: FAMOTIDINE 20 MG TAB PO SCH (17:04)
[2017-11-12] MEDS: QUEtiapine 50 MG TAB PO SCH ×2 (17:04→20:56)
[2017-11-12] MEDS: amLODIPine 5 MG TAB PO SCH (17:04)
[2017-11-12] MEDS: CLOPIDOGREL 75 MG TAB PO SCH (17:04)
[2017-11-12 17:17] LABS: Glucose,Whole Blood 416 mg/dL (75-99)
--- NOTE | 2017-11-12 20:41 | CONS ---
CONSULTATION He was seen on 11/12/2017. He has remained hemodynamically stable. He is less short of breath. Not using accessory muscles of respiration. His O2 saturation on room air is 93%. Blood pressure is 130/70. The respiratory rate of 18, pulse rate of 87, temp 98.6. HEENT unremarkable. Chest reveals expiratory wheeze. Cardiovascular system reveals a S1, S2. Abdomen is soft. There is no edema. Labs were reviewed. IMPRESSION: At this time: 1. Aspiration pneumonia. 2. Asthma with acute exacerbation. 3. Cerebrovascular accident with left-sided residual weakness. Continue bronchodilators, aerosolized steroids, IV steroids, GI and DVT prophylaxis. Increases his activity level. His prognosis is fair. MMODL / IJN: [id number] /
[2017-11-12 20:43] LABS: Glucose,Whole Blood 402 mg/dL (75-99)
[2017-11-12] MEDS ORDERED: INSULIN ASPART 100 UNIT/ML 1 ML 10 ML VIAL SQ ONE (20:50)
[2017-11-12] MEDS: ATORVASTATIN 40 MG TAB PO SCH (20:56)
[2017-11-13] MEDS: PIPERACILLIN-TAZOBACTAM 3.375 GM in DEXTROSE/WATER 1 50ML.BAG IVPB SCH ×3 (00:36→16:34)
[2017-11-13] MEDS: methylPREDNISolone SOD SUCCI 40 MG/ML 1 ML VIAL IV SCH ×2 (00:40→08:14)
[2017-11-13 07:14] LABS: Glucose,Whole Blood 294 mg/dL (75-99)
[2017-11-13] MEDS: IPRATROPIUM-ALBUTEROL 3 ML NEB INHALATION SCH ×4 (07:20→19:30)
[2017-11-13] MEDS: BUDESONIDE 0.5 MG/2 ML NEBU INHALATION SCH ×2 (07:20→19:29)
[2017-11-13] MEDS: INSULIN ASPART 100 UNIT/ML 1 ML 10 ML VIAL SQ SCH ×4 (08:12→20:34)
[2017-11-13] MEDS: LEVOFLOXACIN 500 MG TAB PO SCH (08:13)
[2017-11-13] MEDS: MONTELUKAST 10 MG TAB PO SCH (08:13)
[2017-11-13] MEDS: LABETALOL 200 MG TAB PO SCH ×2 (08:13→20:34)
[2017-11-13] MEDS: HEPARIN SODIUM,PORCINE 5,000 UNIT/ML 1 ML VIAL SQ SCH ×2 (08:13→20:34)
[2017-11-13] MEDS: ESCITALOPRAM 10 MG TAB PO SCH (08:13)
[2017-11-13] MEDS: NYSTATIN 100,000UNIT/GM CREAM 30 GM TUBE TOPICAL SCH ×2 (08:14→16:35)
[2017-11-13 11:26] LABS: Glucose,Whole Blood 293 mg/dL (75-99)
[2017-11-13] MEDS ORDERED: INSULIN ASPART 100 UNIT/ML 1 ML 10 ML VIAL SQ ONE ×2 (11:36→17:55)
[2017-11-13] MEDS: amLODIPine 5 MG TAB PO SCH (16:33)
[2017-11-13] MEDS: LISINOPRIL 5 MG TAB PO SCH (16:33)
[2017-11-13] MEDS: CLOPIDOGREL 75 MG TAB PO SCH (16:33)
[2017-11-13] MEDS: QUEtiapine 50 MG TAB PO SCH ×2 (16:34→20:34)
[2017-11-13] MEDS: FAMOTIDINE 20 MG TAB PO SCH (16:35)
[2017-11-13 17:11] LABS: Glucose,Whole Blood 353 mg/dL (75-99)
--- NOTE | 2017-11-13 19:22 | CONS ---
CONSULTATION DATE OF SERVICE: 11/13/2017 Mr. Matt Guerrero is a 52-year-old male who was seen, evaluated and examined on 4th floor for pneumonia. The patient is well known to me. The patient presented into the emergency department from home with issues as the patient's family is having difficulty in managing him at home. They were looking for placement in an extended care facility. It appears that the patient has been having some symptoms for almost a month, has been treated with antibiotics and steroids in outpatient setting without any significant relief. The patient has a significant comorbidity of a stroke with residual left-sided weakness. The patient has been hospitalized in the past. The patient has ongoing cough and shortness of breath. The patient does have history of significant coronary artery disease as well as CABG in the past. PAST MEDICAL HISTORY: Significant for dyslipidemia, mood disorder, depression, history of peptic ulcer disease, hypertension, hypertensive cardiovascular disease, coronary artery disease, status post CABG, history of a stroke afterwards with residual left-sided weakness. The patient does have a history of prior tracheostomy, however, significantly weaned and trach has been discontinued. PAST SURGICAL HISTORY: As dictated above. ALLERGIES: Include PERFUME, CHEESE, MILK. CURRENT MEDICATIONS: At home include Lipitor 40 mg daily, Plavix 75 mg daily, Lexapro 10 mg daily, Pepcid 20 mg daily, Labetalol 400 mg daily. Lisinopril 5 mg daily. Singular 10 mg daily. Seroquel 50 mg daily. Cipro 500 mg q.12 hours hourly. Current medications while in the hospital includes DuoNeb unit dose updraft 4 times a day, Norvasc 5 mg daily, Lipitor 40 mg p.o. Pulmicort 2 times a day, Plavix 75 mg daily. Lexapro 10 mg daily. Pepcid 20 mg daily. Subcu heparin for DVT prophylaxis. Sliding scale insulin. Labetalol 400 mg 3 times a day. Levaquin 500 mg daily. Lisinopril is 5 mg daily. Singular 10 mg daily. Zosyn 3.375 q.6h hourly. Prednisone 40 mg daily. Quetiapine 50 mg daily. REVIEW OF SYSTEMS: Otherwise unremarkable and noncontributory except as dictated above. PHYSICAL EXAMINATION: On examination, most recent vitals include blood pressure is 143/76, respiratory rate is 20, pulse of 86, temperature 97, saturation 92% on room air. HEENT: Atraumatic, normocephalic. Eyes clear. Narrow pharyngeal opening is present. NECK: Supple. LUNGS: Good air entry bilaterally. Few crackles at the bases cannot be excluded. HEART: Regular rate and rhythm. S1, S2 audible. ABDOMEN: Soft. No rebound, rigidity. EXTREMITIES: +1 pedal pulses. NEUROLOGICAL: Awake and alert. Moving all 4 extremities. Some residual left-sided weakness present. LABS: Reviewed. Medications reviewed. The last set of laboratory data include white cell count 11,200, hemoglobin and hematocrit 13 and 40, platelet count 176,000, PT/INR and PTT within normal limits. Glucose is 309. Troponin 0.02. Blood cultures no growth so far. RADIOGRAPHIC STUDIES: X-ray unremarkable. CT scan of the chest, however, revealed right lower lobe patchy infiltrate. IMPRESSION: 1. Right lower lobe pneumonia. 2. Chronic intermittent aspiration cannot be excluded. 3. Cerebrovascular accident with residual left-sided weakness. 4. History of coronary artery disease, status post CABG. 5. History of dyslipidemia and diabetes in the past. PLAN AND RECOMMENDATION: Continue breathing treatments. Continue broad-spectrum antibiotics. Maintain patient on DVT and peptic ulcer disease prophylaxis. As noted the patient is being evaluated for placement in extended care facility to follow clinical course closely. Further recommendations pending. Plan of care as per clinical response of the patient. MMODL / IJN: [id number] /
[2017-11-13 20:32] LABS: Glucose,Whole Blood 243 mg/dL (75-99)
[2017-11-13] MEDS: ATORVASTATIN 40 MG TAB PO SCH (20:34)
[2017-11-14] MEDS: PIPERACILLIN-TAZOBACTAM 3.375 GM in DEXTROSE/WATER 1 50ML.BAG IVPB SCH ×2 (00:04→08:51)
[2017-11-14] MEDS: NYSTATIN 100,000UNIT/GM CREAM 30 GM TUBE TOPICAL SCH ×2 (00:04→08:53)
[2017-11-14 07:17] LABS: Glucose,Whole Blood 192 mg/dL (75-99)
[2017-11-14] MEDS: IPRATROPIUM-ALBUTEROL 3 ML NEB INHALATION SCH ×3 (08:07→15:52)
[2017-11-14] MEDS: BUDESONIDE 0.5 MG/2 ML NEBU INHALATION SCH (08:07)
[2017-11-14] MEDS: INSULIN ASPART 100 UNIT/ML 1 ML 10 ML VIAL SQ SCH ×2 (08:51→12:13)
[2017-11-14] MEDS: LABETALOL 200 MG TAB PO SCH (08:51)
[2017-11-14] MEDS: HEPARIN SODIUM,PORCINE 5,000 UNIT/ML 1 ML VIAL SQ SCH (08:52)
[2017-11-14] MEDS: LEVOFLOXACIN 500 MG TAB PO SCH (08:52)
[2017-11-14] MEDS: MONTELUKAST 10 MG TAB PO SCH (08:52)
[2017-11-14] MEDS: ESCITALOPRAM 10 MG TAB PO SCH (08:52)
[2017-11-14] MEDS ORDERED: predniSONE 20 MG TAB PO SCH (09:00)
--- NOTE | 2017-11-14 10:23 | P.PN ---
Subjective Progress Note Date: 11/14/17 Principal diagnosis: Right-sided aspiration pneumonia likely mixed bacterial and/or or gram-negative related, CVA with residual left-sided weakness, coronary artery disease status post CABG, advanced diabetes mellitus 11/14/2017, patient seen eval examined during the rounds clinically has been doing slightly better breathing more comfortably no obvious distress present patient has been tolerating broad-spectrum antibiotics very well labs reviewed medications reviewed radiographic studies including CAT scan reviewed as well Objective - Vital Signs Vital signs: Vital Signs Temp 97.1 F L 11/14/17 06:17 Pulse 76 11/14/17 08:27 Resp 14 11/14/17 06:17 BP 141/84 11/14/17 06:17 Pulse Ox 92 L 11/14/17 06:17 Intake & Output 11/13/17 11/14/17 11/14/17 18:59 06:59 18:59 Other: Voiding Method Diaper Diaper Incontinent Incontinent # Voids 1 2 # Bowel Movements 1 - Exam General appearance: alert, in no apparent distress Head exam: Present: atraumatic Eye exam: Present: normal appearance, PERRL ENT exam: Present: normal exam Neck exam: Present: normal inspection. Absent: tenderness, meningismus Respiratory exam: Present: Improved rhonchi, decreased breath sounds. Absent: respiratory distress (mild), exam significantly improved compared to prior exam Cardiovascular Exam: Present: regular rate, normal rhythm GI/Abdominal exam: Present: soft. Absent: distended, tenderness, guarding Extremities exam: Absent: pedal edema, calf tenderness Neurological exam: Present: alert, motor sensory deficit (Residual left-sided weakness) Skin exam: Present: warm, dry, intact. Absent: cyanosis, diaphoretic - Labs CBC & Chem 7: 11/10/17 11:30 11/10/17 11:30 Labs: Abnormal Lab Results - Last 24 Hours (Table) 11/13/17 11/13/17 11/13/17 Range/Units 11:14 17:08 20:22 POC Glucose (mg/dL) 293 H 353 H 243 H (75-99) mg/dL 11/14/17 Range/Units 07:15 POC Glucose (mg/dL) 192 H (75-99) mg/dL Microbiology - Last 24 Hours (Table) 11/10/17 11:30 Blood Culture - Preliminary Blood No Growth after 72 hours Assessment and Plan Assessment: Right lower lobe aspiration pneumonia Right-sided CVA with residual left-sided weakness Advanced diabetes mellitus with complications Coronary artery disease with history of bypass surgery Plan: Continue broad-spectrum antibiotics Deep breathing exercise incentive spirometry Aspiration precautions Increase activity as tolerated Continue physical therapy The DVT and peptic ulcer disease prophylaxis Placement to extended care facility as per family request is in process Time with Patient: Greater than 30
[2017-11-14 12:09] LABS: Glucose,Whole Blood 127 mg/dL (75-99)
[2017-11-14 15:53] VITALS: BP 137/78; RESP 16; TEMP 98.9
[2017-11-14 16:04] VITALS: PULSE 70
== END 2017-11-14 16:27 | disposition home or self-care (01) ==
LOC: EC 10:42 → UNDOADMIN 13:55 → 4MS4W 13:55
PROVIDERS: ADMIT Family Medicine; ATTEND Family Medicine
DX: J44.1 Chronic obstructive pulmonary disease with (acute) exacerbation (principal); J45.901 Unspecified asthma with (acute) exacerbation; J69.0 Pneumonitis due to inhalation of food and vomit; I25.10 Atherosclerotic heart disease of native coronary artery without angina pectoris; I69.354 Hemiplegia and hemiparesis following cerebral infarction affecting left non-dominant side; E78.5 Hyperlipidemia, unspecified; F31.9 Bipolar disorder, unspecified; E11.9 Type 2 diabetes mellitus without complications; I11.9 Hypertensive heart disease without heart failure; F39 Unspecified mood [affective] disorder; R41.3 Other amnesia; Z87.891 Personal history of nicotine dependence; Z83.3 Family history of diabetes mellitus; Z83.6 Family history of other diseases of the respiratory system; Z79.899 Other long term (current) drug therapy; Z79.02 Long term (current) use of antithrombotics/antiplatelets; Z95.1 Presence of aortocoronary bypass graft; Z87.11 Personal history of peptic ulcer disease; Z91.011 Allergy to milk products; Z91.018 Allergy to other foods; Z91.048 Other nonmedicinal substance allergy status; Z80.8 Family history of malignant neoplasm of other organs or systems; Z80.42 Family history of malignant neoplasm of prostate
CPT/HCPCS: 36415; 71046; 71250; 80053; 82550; 82553; 83036; 83605; 83735; 83880; 84484; 85025; 85610; 85730; 87040; 93005; 94640; 96365; 96366; 96372; 96375; 96376; 99285

== ENCOUNTER 2017-12-06 15:28 | Emergency (ER) | payer OTHER ==
[2017-12-06] MEDS ORDERED: SODIUM CHLORIDE 0.9% 2,000 ML IV ONE (15:44)
--- NOTE | 2017-12-06 15:58 | ED ---
Recheck HPI - General Chief Complaint: Recheck/Abnormal Lab/Rx Stated Complaint: High Sugar Time Seen by Provider: 12/06/17 15:43 Source: patient, family, RN notes reviewed Mode of arrival: ambulatory Limitations: no limitations - History of Present Illness Initial Comments: 52-year-old male presents emergency department with family concerns for hyperglycemia. Patient has been on steroids for COPD for essentially the whole month. Patient recently has had elevated blood sugar and read high today. Patient states she is very thirsty has been intensely drenched at home and sweats. Patient denies any abdominal pain he has underlying COPD and has difficulty coughing secondary to CVA after open heart surgery. Patient denies any headache, dizziness, abdominal pain. - Related Data Home Medications Medication Instructions Recorded Confirmed Atorvastatin [Lipitor] 40 mg PO DAILY@199907/01/17 11/10/17 Clopidogrel Bisulfate [Plavix] 75 mg PO DAILY@159907/01/17 11/10/17 Escitalopram Oxalate [Lexapro] 10 mg PO DAILY 07/01/17 11/10/17 Famotidine [Pepcid] 20 mg PO DAILY@159907/01/17 11/10/17 Labetalol HCl 400 mg PO BID@0800,199907/01/17 11/10/17 Lisinopril [Zestril] 5 mg PO DAILY@1600 07/01/17 11/10/17 amLODIPine BESYLATE [Norvasc] 5 mg PO DAILY@1600 07/01/17 11/10/17 Montelukast [Singulair] 10 mg PO DAILY 10/31/17 11/10/17 QUEtiapine [SEROquel] 50 mg PO BID@1600,199910/31/17 11/10/17 Ciprofloxacin HCl [Cipro] 500 mg PO Q12HR 11/10/17 11/10/17 Amoxicillin/Potassium Clav 1 tab PO BID 11/14/17 11/14/17 [Augmentin 875-125 Tablet] predniSONE 0 mg PO DIRECTED 11/14/17 11/14/17 Previous Rx's Medication Instructions Recorded metFORMIN HCL 500 mg PO BID #30 tablet 12/06/17 Allergies Allergy/AdvReac Type Severity Reaction Status Date / Time perfume Allergy Dyspnea Verified 12/06/17 15:36 cheese AdvReac Unknown Verified 12/06/17 15:36 milk AdvReac Unknown Verified 12/06/17 15:36 Review of Systems ROS Statement: Those systems with pertinent positive or pertinent negative responses have been documented in the HPI. ROS Other: All systems not noted in ROS Statement are negative. Past Medical History Past Medical History: Asthma, Coronary Artery Disease (CAD), Chest Pain / Angina , Heart Failure, COPD, CVA/TIA, Diabetes Mellitus, GERD/Reflux, Hyperlipidemia, Hypertension, Memory Impairment, Myocardial Infarction (CT), Pneumonia Additional Past Medical History / Comment(s): Pt recently admitted to [facility] with COPD, pulmonary fibrosis and tracheobronchitis. Other hx: 2017 Pt had 4 vessel CABG and had a CVA post op day 2-has L sided severe weakness and memory issues-his mother is his legal guardian, he stands with walker briefly to transfer into wheelchair, sometimes they use a gait belt, he has had falls, CT 2017, tracheobronchitis, NIDDM type II but told no longer diabetic, reddened skin scrotal area, occasionally incontinent of urine/stool. Last Myocardial Infarction Date:: 2016 History of Any Multi-Drug Resistant Organisms: None Reported Past Surgical History: Appendectomy, Coronary Bypass/CABG, Heart Catheterization , Orthopedic Surgery Additional Past Surgical History / Comment(s): 2017 CABG 4 vessel, tracheostomy , L femur fracture with surgical repair. Past Anesthesia/Blood Transfusion Reactions: No Reported Reaction Past Psychological History: Bipolar Smoking Status: Former smoker Past Alcohol Use History: None Reported Past Drug Use History: None Reported - Past Family History Mother Family Medical History: Hypertension Father Family Medical History: Cancer, Coronary Artery Disease (CAD), Diabetes Mellitus , Pneumonia, Prostate Disorder Additional Family Medical History / Comment(s): Bipolar disorder, throat cancer , prostate cancer General Exam Limitations: no limitations General appearance: alert, in no apparent distress Head exam: Present: atraumatic, normocephalic, normal inspection Respiratory exam: Present: rhonchi. Absent: respiratory distress, wheezes, rales, stridor Cardiovascular Exam: Present: regular rate, normal rhythm, normal heart sounds. Absent: systolic murmur, diastolic murmur, rubs, gallop, clicks GI/Abdominal exam: Present: soft, normal bowel sounds. Absent: distended, tenderness, guarding, rebound, rigid Course Vital Signs 12/06/17 15:33 Temperature 97.8 F Pulse Rate 85 Respiratory 16 Rate Blood Pressure 144/88 O2 Sat by Pulse 96 Oximetry Medical Decision Making - Medical Decision Making 52-year-old male presents emergency department for hyperglycemia. Patient's progressing a is induced from dehydration and steroid use. Patient will be started on metformin and follow-up with PCP tomorrow. - Lab Data Result diagrams: 12/06/17 16:13 12/06/17 16:13 Lab Results 12/06/17 12/06/17 12/06/17 Range/Units 16:13 16:13 16:13 WBC 6.8 (3.8-10.6) k/uL RBC 4.59 (4.30-5.90) m/uL Hgb 13.8 (13.0-17.5) gm/dL Hct 41.0 (39.0-53.0) % MCV 89.2 (80.0-100.0) fL MCH 30.1 (25.0-35.0) pg MCHC 33.8 (31.0-37.0) g/dL RDW 13.3 (11.5-15.5) % Plt Count 168 (150-450) k/uL Neutrophils % 82 % Lymphocytes % 11 % Monocytes % 5 % Eosinophils % 0 % Basophils % 1 % Neutrophils # 5.6 (1.3-7.7) k/uL Lymphocytes # 0.8 L (1.0-4.8) k/uL Monocytes # 0.3 (0-1.0) k/uL Eosinophils # 0.0 (0-0.7) k/uL Basophils # 0.0 (0-0.2) k/uL Sodium 137 (137-145) mmol/L Potassium 4.5 (3.5-5.1) mmol/L Chloride 101 (98-107) mmol/L Carbon Dioxide 26 (22-30) mmol/L Anion Gap 10 mmol/L BUN 17 (9-20) mg/dL Creatinine 0.76 (0.66-1.25) mg/dL Est GFR (CKD-EPI)AfAm >90 (>60 ml/min/1.73 sqM) Est GFR (CKD-EPI)NonAf >90 (>60 ml/min/1.73 sqM) Glucose 580 H* (74-99) mg/dL POC Glucose (mg/dL) (75-99) mg/dL POC Glu Environmental Engineer Scientist ID Plasma Lactic Acid Jayce (0.7-2.0) mmol/L Calcium 10.0 (8.4-10.2) mg/dL Total Bilirubin 0.7 (0.2-1.3) mg/dL AST 33 (17-59) U/L ALT 64 (21-72) U/L Alkaline Phosphatase 78 (38-126) U/L Total Protein 6.2 L (6.3-8.2) g/dL Albumin 3.9 (3.5-5.0) g/dL Urine Color Light Yellow Urine Appearance Clear (Clear) Urine pH 7.5 (5.0-8.0) Ur Specific [place] 1.025 (1.001-1.035) Urine Protein Negative (Negative) Urine Glucose (UA) 4+ H (Negative) Urine Ketones Negative (Negative) Urine Blood Moderate H (Negative) Urine Nitrite Negative (Negative) Urine Bilirubin Negative (Negative) Urine Urobilinogen <2.0 (<2.0) mg/dL Ur Leukocyte Esterase Negative (Negative) Urine RBC 49 H (0-5) /hpf Urine WBC 9 H (0-5) /hpf Acetone, Qual Negative (Negative) 12/06/17 12/06/17 Range/Units 16:13 18:02 WBC (3.8-10.6) k/uL RBC (4.30-5.90) m/uL Hgb (13.0-17.5) gm/dL Hct (39.0-53.0) % MCV (80.0-100.0) fL MCH (25.0-35.0) pg MCHC (31.0-37.0) g/dL RDW (11.5-15.5) % Plt Count (150-450) k/uL Neutrophils % % Lymphocytes % % Monocytes % % Eosinophils % % Basophils % % Neutrophils # (1.3-7.7) k/uL Lymphocytes # (1.0-4.8) k/uL Monocytes # (0-1.0) k/uL Eosinophils # (0-0.7) k/uL Basophils # (0-0.2) k/uL Sodium (137-145) mmol/L Potassium (3.5-5.1) mmol/L Chloride (98-107) mmol/L Carbon Dioxide (22-30) mmol/L Anion Gap mmol/L BUN (9-20) mg/dL Creatinine (0.66-1.25) mg/dL Est GFR (CKD-EPI)AfAm (>60 ml/min/1.73 sqM) Est GFR (CKD-EPI)NonAf (>60 ml/min/1.73 sqM) Glucose (74-99) mg/dL POC Glucose (mg/dL) 361 H (75-99) mg/dL POC Glu Environmental Engineer Scientist ID Roderick Forman Plasma Lactic Acid Jayce 3.4 H* (0.7-2.0) mmol/L Calcium (8.4-10.2) mg/dL Total Bilirubin (0.2-1.3) mg/dL AST (17-59) U/L ALT (21-72) U/L Alkaline Phosphatase (38-126) U/L Total Protein (6.3-8.2) g/dL Albumin (3.5-5.0) g/dL Urine Color Urine Appearance (Clear) Urine pH (5.0-8.0) Ur Specific [place] (1.001-1.035) Urine Protein (Negative) Urine Glucose (UA) (Negative) Urine Ketones (Negative) Urine Blood (Negative) Urine Nitrite (Negative) Urine Bilirubin (Negative) Urine Urobilinogen (<2.0) mg/dL Ur Leukocyte Esterase (Negative) Urine RBC (0-5) /hpf Urine WBC (0-5) /hpf Acetone, Qual (Negative) Disposition Clinical Impression: Hyperglycemia, Diabetes Disposition: HOME SELF-CARE Condition: Stable Instructions: Diabetic Hyperglycemia (ED) Additional Instructions: Please return to the Emergency Department if symptoms worsen or any other concerns. Prescriptions: metFORMIN HCL 500 mg PO BID #30 tablet Is patient prescribed a controlled substance at d/c from ED?: No Referrals: Trae aMgana MD [Primary Care Provider] - 1-2 days Time of Disposition: 19:22
[2017-12-06 16:37] LABS: Basophils % (A) 1 %; Eosinophils % (A) 0 %; HGB 13.8 gm/dL (13.0-17.5); Lymphocytes # (A) 0.8 k/uL (1.0-4.8); Lymphocytes % (A) 11 %; MCH 30.1 pg (25.0-35.0); MCHC 33.8 g/dL (31.0-37.0); MCV 89.2 fL (80.0-100.0); Monocytes # (A) 0.3 k/uL (0-1.0); Monocytes % (A) 5 %; Neutrophils # (A) 5.6 k/uL (1.3-7.7); Neutrophils % (A) 82 %; Platelet Count 168 k/uL (150-450); RBC 4.59 m/uL (4.30-5.90); RDW 13.3 % (11.5-15.5); WBC 6.8 k/uL (3.8-10.6)
--- NOTE | 2017-12-06 16:49 | XR ---
EXAMINATION TYPE: XR chest 2V DATE OF EXAM: 12/06/2017 COMPARISON: 11/02/2017 HISTORY: Cough. TECHNIQUE: Frontal and lateral views of the chest are obtained. FINDINGS: There is no heart failure nor confluent pneumonic infiltrate. Costophrenic angles are mak r. There are sternal wires. IMPRESSION: No active cardiopulmonary disease. Normal heart. Inspiration is improved compared to las t exam.
[2017-12-06 17:23] LABS: Anion Gap 10 mmol/L; Blood Urea Nitrogen 17 mg/dL (9-20); Carbon Dioxide 26 mmol/L (22-30); Chloride 101 mmol/L (98-107); Potassium 4.5 mmol/L (3.5-5.1); Sodium 137 mmol/L (137-145)
[2017-12-06 17:24] LABS: ALT 64 U/L (21-72); AST 33 U/L (17-59); Albumin 3.9 g/dL (3.5-5.0); Alkaline Phosphatase 78 U/L (38-126); Total Bilirubin 0.7 mg/dL (0.2-1.3); Total Protein 6.2 g/dL (6.3-8.2)
[2017-12-06 17:27] LABS: Glucose 580 mg/dL (74-99)
[2017-12-06 17:44] LABS: Appearance,Urine Clear (Clear); Bilirubin,Urine Negative (Negative); Blood,Urine Moderate (Negative); Color,Urine Light Yellow; Glucose,Urine (UA) 4+ (Negative); Ketones,Urine Negative (Negative); Leukocyte Esterase,Urine Negative (Negative); Nitrite,Urine Negative (Negative); PH, Urine 7.5 (5.0-8.0); Protein,Urine Negative (Negative); RBC,Urine 49 /hpf (0-5); Specific Gravity,Urine 1.025 (1.001-1.035); Urobilinogen,Urine <2.0 mg/dL (<2.0); WBC,Urine 9 /hpf (0-5)
[2017-12-06 18:06] LABS: Glucose,Whole Blood 361 mg/dL (75-99)
[2017-12-06] MEDS ORDERED: INSULIN REGULAR 100 UNIT/ML VIAL IV ONE (18:17)
[2017-12-06] MEDS ORDERED: metFORMIN 500 MG TAB PO STA (19:10)
[2017-12-06 19:24] LABS: Glucose,Whole Blood 271 mg/dL (75-99)
[2017-12-06 19:51] VITALS: BP 171/99; PULSE 67; RESP 18; TEMP 98.5
== END 2017-12-06 19:48 | disposition home or self-care (01) ==
LOC: EC 15:28
DX: E11.65 Type 2 diabetes mellitus with hyperglycemia (principal); R05 Cough; E86.0 Dehydration; J44.9 Chronic obstructive pulmonary disease, unspecified; I25.10 Atherosclerotic heart disease of native coronary artery without angina pectoris; I11.0 Hypertensive heart disease with heart failure; I50.9 Heart failure, unspecified; K21.9 Gastro-esophageal reflux disease without esophagitis; E78.5 Hyperlipidemia, unspecified; I25.2 Old myocardial infarction; J84.10 Pulmonary fibrosis, unspecified; F31.9 Bipolar disorder, unspecified; Z86.73 Personal history of transient ischemic attack (TIA), and cerebral infarction without residual deficits; Z95.1 Presence of aortocoronary bypass graft; Z95.818 Presence of other cardiac implants and grafts; Z87.891 Personal history of nicotine dependence; Z83.3 Family history of diabetes mellitus; Z79.02 Long term (current) use of antithrombotics/antiplatelets; Z79.52 Long term (current) use of systemic steroids; Z79.899 Other long term (current) drug therapy; Z91.048 Other nonmedicinal substance allergy status; Z91.018 Allergy to other foods; Z91.011 Allergy to milk products
CPT/HCPCS: 36415; 51702; 71046; 80053; 81001; 82009; 83605; 85025; 87040; 96360; 99285

== ENCOUNTER 2017-12-07 15:34 | Observation (INO) | payer OTHER ==
[2017-12-07 15:48] LABS: Glucose,Whole Blood 394 mg/dL (75-99)
[2017-12-07] MEDS ORDERED: INSULIN REGULAR 100 UNIT/ML VIAL SQ ONE (16:39)
[2017-12-07] MEDS ORDERED: SODIUM CHLORIDE 0.9% 1,000 ML IV STA ×2 (16:39)
[2017-12-07] MEDS ORDERED: SODIUM CHLORIDE 0.9% 500 ML 500 ML IV STA (16:39)
[2017-12-07] MEDS ORDERED: INSULIN REGULAR 100 UNIT/ML VIAL IV ONE (16:39)
[2017-12-07 16:40] LABS: Glucose,Whole Blood 378 mg/dL (75-99)
--- NOTE | 2017-12-07 16:48 | ED ---
Recheck HPI - General Chief Complaint: Recheck/Abnormal Lab/Rx Stated Complaint: High Sugars Time Seen by Provider: 12/07/17 16:38 Source: patient, family Mode of arrival: wheelchair Limitations: no limitations - History of Present Illness Initial Comments: This is a 52-year-old male who presents back to emergency today for evaluation of elevated blood sugar. Patient does admit to increased thirst, increased urination. Patient denies any complaints of fever chest pain shortness breath or abdominal pain. MD Complaint: abnormal lab (Elevated blood glucose) -: days(s) Symptoms Since Prior Visit: no new symptoms Associated Symptoms: none - Related Data Home Medications Medication Instructions Recorded Confirmed Atorvastatin [Lipitor] 40 mg PO HS@199907/01/17 12/07/17 Clopidogrel Bisulfate [Plavix] 75 mg PO DAILY@159907/01/17 12/07/17 Escitalopram Oxalate [Lexapro] 10 mg PO DAILY 07/01/17 12/07/17 Famotidine [Pepcid] 20 mg PO DAILY@159907/01/17 12/07/17 Labetalol HCl 400 mg PO BID@0800,199907/01/17 12/07/17 Lisinopril [Zestril] 5 mg PO DAILY@159907/01/17 12/07/17 amLODIPine BESYLATE [Norvasc] 5 mg PO DAILY@159907/01/17 12/07/17 Montelukast [Singulair] 10 mg PO DAILY 10/31/17 12/07/17 QUEtiapine [SEROquel] 50 mg PO BID@1600,199910/31/17 12/07/17 predniSONE See Taper PO DIRECTED 11/14/17 12/07/17 Albuterol Nebulized [Ventolin 2.5 mg INHALATION RT-TID PRN 12/07/17 12/07/17 Nebulized] Ketoconazole 200 mg PO DAILY 12/07/17 12/07/17 Previous Rx's Medication Instructions Recorded metFORMIN HCL 500 mg PO BID #30 tablet 12/06/17 Allergies Allergy/AdvReac Type Severity Reaction Status Date / Time perfume Allergy Dyspnea Verified 12/07/17 17:31 cheese AdvReac Unknown Verified 12/07/17 17:31 milk AdvReac Unknown Verified 12/07/17 17:31 Review of Systems ROS Statement: Those systems with pertinent positive or pertinent negative responses have been documented in the HPI. ROS Other: All systems not noted in ROS Statement are negative. Past Medical History Past Medical History: Asthma, Coronary Artery Disease (CAD), Chest Pain / Angina , Heart Failure, COPD, CVA/TIA, Diabetes Mellitus, GERD/Reflux, Hyperlipidemia, Hypertension, Memory Impairment, Myocardial Infarction ([place]), Pneumonia Additional Past Medical History / Comment(s): Pt recently admitted to [facility] with COPD, pulmonary fibrosis and tracheobronchitis. Other hx: 2017 Pt had 4 vessel CABG and had a CVA post op day 2-has L sided severe weakness and memory issues-his mother is his legal guardian, he stands with walker briefly to transfer into wheelchair, sometimes they use a gait belt, he has had falls, [place] 2017, tracheobronchitis, NIDDM type II but told no longer diabetic, reddened skin scrotal area, occasionally incontinent of urine/stool. Last Myocardial Infarction Date:: 2016 History of Any Multi-Drug Resistant Organisms: None Reported Past Surgical History: Appendectomy, Coronary Bypass/CABG, Heart Catheterization , Orthopedic Surgery Additional Past Surgical History / Comment(s): 2017 CABG 4 vessel, tracheostomy , L femur fracture with surgical repair. Past Anesthesia/Blood Transfusion Reactions: No Reported Reaction Past Psychological History: Bipolar Smoking Status: Former smoker Past Alcohol Use History: None Reported Past Drug Use History: None Reported - Past Family History Mother Family Medical History: Hypertension Father Family Medical History: Cancer, Coronary Artery Disease (CAD), Diabetes Mellitus , Pneumonia, Prostate Disorder Additional Family Medical History / Comment(s): Bipolar disorder, throat cancer , prostate cancer General Exam Limitations: no limitations General appearance: alert, in no apparent distress Head exam: Present: atraumatic, normocephalic, normal inspection Eye exam: Present: normal appearance, PERRL, EOMI. Absent: scleral icterus, conjunctival injection, periorbital swelling ENT exam: Present: normal exam, mucous membranes moist Neck exam: Present: normal inspection. Absent: tenderness, meningismus, lymphadenopathy Respiratory exam: Present: normal lung sounds bilaterally. Absent: respiratory distress, wheezes, rales, rhonchi, stridor Cardiovascular Exam: Present: regular rate, normal rhythm, normal heart sounds. Absent: systolic murmur, diastolic murmur, rubs, gallop, clicks GI/Abdominal exam: Present: soft, normal bowel sounds. Absent: distended, tenderness, guarding, rebound, rigid Extremities exam: Present: normal inspection, full ROM, normal capillary refill. Absent: tenderness, pedal edema, joint swelling, calf tenderness Back exam: Present: normal inspection Neurological exam: Present: alert, oriented X3, CN II-XII intact Psychiatric exam: Present: normal affect, normal mood Skin exam: Present: warm, dry, intact, normal color. Absent: rash Course Vital Signs 12/07/17 12/07/17 15:40 17:37 Temperature 98.1 F Pulse Rate 77 66 Respiratory 20 16 Rate Blood Pressure 138/84 149/79 O2 Sat by Pulse 98 97 Oximetry - Reevaluation(s) Reevaluation #1: 12/07/17 18:22 Medical record and prior ER visit from yesterday is reviewed Reevaluation #2: 12/07/17 18:22 Patient placed on insulin control, including increased adequate fluid hydration Medical Decision Making - Medical Decision Making 52-year-old male the ER for evaluation of hypoglycemia. Patient be admitted for blood sugar control - Lab Data Result diagrams: 12/07/17 16:58 12/07/17 16:58 Lab Results 12/07/17 12/07/17 12/07/17 Range/Units 15:45 16:38 16:58 WBC (3.8-10.6) k/uL RBC (4.30-5.90) m/uL Hgb (13.0-17.5) gm/dL Hct (39.0-53.0) % MCV (80.0-100.0) fL MCH (25.0-35.0) pg MCHC (31.0-37.0) g/dL RDW (11.5-15.5) % Plt Count (150-450) k/uL Neutrophils % % Lymphocytes % % Monocytes % % Eosinophils % % Basophils % % Neutrophils # (1.3-7.7) k/uL Lymphocytes # (1.0-4.8) k/uL Monocytes # (0-1.0) k/uL Eosinophils # (0-0.7) k/uL Basophils # (0-0.2) k/uL Sodium 137 (137-145) mmol/L Potassium 4.7 (3.5-5.1) mmol/L Chloride 102 (98-107) mmol/L Carbon Dioxide 27 (22-30) mmol/L Anion Gap 8 mmol/L BUN 16 (9-20) mg/dL Creatinine 0.79 (0.66-1.25) mg/dL Est GFR (CKD-EPI)AfAm >90 (>60 ml/min/1.73 sqM) Est GFR (CKD-EPI)NonAf >90 (>60 ml/min/1.73 sqM) Glucose 359 H (74-99) mg/dL POC Glucose (mg/dL) 394 H 378 H (75-99) mg/dL POC Glu Assistant Vice President ID Calcium 10.0 (8.4-10.2) mg/dL Phosphorus 3.2 (2.5-4.5) mg/dL Magnesium 1.9 (1.6-2.3) mg/dL Total Bilirubin 0.8 (0.2-1.3) mg/dL AST 31 (17-59) U/L ALT 59 (21-72) U/L Alkaline Phosphatase 79 (38-126) U/L Total Protein 6.4 (6.3-8.2) g/dL Albumin 4.1 (3.5-5.0) g/dL Acetone, Qual Negative (Negative) 12/07/17 12/07/17 Range/Units 16:58 17:47 WBC 8.3 (3.8-10.6) k/uL RBC 4.65 (4.30-5.90) m/uL Hgb 13.7 (13.0-17.5) gm/dL Hct 40.7 (39.0-53.0) % MCV 87.5 (80.0-100.0) fL MCH 29.5 (25.0-35.0) pg MCHC 33.7 (31.0-37.0) g/dL RDW 13.5 (11.5-15.5) % Plt Count 193 (150-450) k/uL Neutrophils % 81 % Lymphocytes % 12 % Monocytes % 5 % Eosinophils % 0 % Basophils % 0 % Neutrophils # 6.7 (1.3-7.7) k/uL Lymphocytes # 1.0 (1.0-4.8) k/uL Monocytes # 0.4 (0-1.0) k/uL Eosinophils # 0.0 (0-0.7) k/uL Basophils # 0.0 (0-0.2) k/uL Sodium (137-145) mmol/L Potassium (3.5-5.1) mmol/L Chloride (98-107) mmol/L Carbon Dioxide (22-30) mmol/L Anion Gap mmol/L BUN (9-20) mg/dL Creatinine (0.66-1.25) mg/dL Est GFR (CKD-EPI)AfAm (>60 ml/min/1.73 sqM) Est GFR (CKD-EPI)NonAf (>60 ml/min/1.73 sqM) Glucose (74-99) mg/dL POC Glucose (mg/dL) 245 H (75-99) mg/dL POC Glu Assistant Vice President ID Calcium (8.4-10.2) mg/dL Phosphorus (2.5-4.5) mg/dL Magnesium (1.6-2.3) mg/dL Total Bilirubin (0.2-1.3) mg/dL AST (17-59) U/L ALT (21-72) U/L Alkaline Phosphatase (38-126) U/L Total Protein (6.3-8.2) g/dL Albumin (3.5-5.0) g/dL Acetone, Qual (Negative) Disposition Clinical Impression: Type 2 diabetes mellitus, COPD (chronic obstructive pulmonary disease), Hyperglycemia Disposition: ADMITTED IP TO THIS HOSP Condition: Good Is patient prescribed a controlled substance at d/c from ED?: No Referrals: Trae Magana MD [Primary Care Provider] - 1-2 days
[2017-12-07 17:16] LABS: Basophils % (A) 0 %; Eosinophils % (A) 0 %; HCT 40.7 % (39.0-53.0); HGB 13.7 gm/dL (13.0-17.5); Lymphocytes % (A) 12 %; MCH 29.5 pg (25.0-35.0); MCHC 33.7 g/dL (31.0-37.0); MCV 87.5 fL (80.0-100.0); Mean Platelet Volume 6.7; Monocytes # (A) 0.4 k/uL (0-1.0); Monocytes % (A) 5 %; Neutrophils # (A) 6.7 k/uL (1.3-7.7); Neutrophils % (A) 81 %; Platelet Count 193 k/uL (150-450); RBC 4.65 m/uL (4.30-5.90); RDW 13.5 % (11.5-15.5); WBC 8.3 k/uL (3.8-10.6)
[2017-12-07 17:25] LABS: ALT 59 U/L (21-72); AST 31 U/L (17-59); Albumin 4.1 g/dL (3.5-5.0); Alkaline Phosphatase 79 U/L (38-126); Anion Gap 8 mmol/L; Blood Urea Nitrogen 16 mg/dL (9-20); Carbon Dioxide 27 mmol/L (22-30); Chloride 102 mmol/L (98-107); Glucose 359 mg/dL (74-99); Magnesium 1.9 mg/dL (1.6-2.3); Phosphorus 3.2 mg/dL (2.5-4.5); Potassium 4.7 mmol/L (3.5-5.1); Sodium 137 mmol/L (137-145); Total Bilirubin 0.8 mg/dL (0.2-1.3); Total Protein 6.4 g/dL (6.3-8.2)
[2017-12-07 17:51] LABS: Glucose,Whole Blood 245 mg/dL (75-99)
[2017-12-07 21:15] LABS: Glucose,Whole Blood 170 mg/dL (75-99)
[2017-12-07 22:21] VITALS: BMI 25.8
[2017-12-07 22:30] LABS: Glucose,Whole Blood 193 mg/dL (75-99)
[2017-12-07] MEDS ORDERED: ALBUTEROL NEBULIZED 2.5 MG/3 ML INHALATION PRN (22:37)
[2017-12-07] MEDS ORDERED: QUEtiapine 50 MG TAB PO STA (23:31)
[2017-12-08] MEDS: INSULIN DETEMIR 100 UNIT/ML 10 ML VIAL SQ SCH ×2 (00:57→21:28)
[2017-12-08] MEDS: LABETALOL 200 MG TAB PO SCH ×3 (00:57→21:28)
[2017-12-08] MEDS: metFORMIN 500 MG TAB PO SCH ×3 (01:00→21:28)
[2017-12-08 01:08] LABS: Glucose,Whole Blood 151 mg/dL (75-99)
[2017-12-08 07:08] LABS: Glucose,Whole Blood 111 mg/dL (75-99)
[2017-12-08] MEDS: INSULIN ASPART 100 UNIT/ML 1 ML 10 ML VIAL SQ SCH ×3 (08:00→17:33)
[2017-12-08 12:01] LABS: Glucose,Whole Blood 166 mg/dL (75-99)
[2017-12-08] MEDS: MONTELUKAST 10 MG TAB PO SCH (12:49)
[2017-12-08 16:50] LABS: Glucose,Whole Blood 160 mg/dL (75-99)
[2017-12-08 17:33] LABS: Hemoglobin A1C 8.5 % (4.0-6.0)
[2017-12-08] MEDS: FAMOTIDINE 20 MG TAB PO SCH (17:33)
[2017-12-08] MEDS: CLOPIDOGREL 75 MG TAB PO SCH (17:33)
[2017-12-08] MEDS: amLODIPine 5 MG TAB PO SCH (17:33)
[2017-12-08] MEDS: LISINOPRIL 5 MG TAB PO SCH (17:33)
[2017-12-08] MEDS: QUEtiapine 100 MG TAB PO SCH ×2 (17:35→21:28)
[2017-12-08] MEDS ORDERED: ATORVASTATIN 40 MG TAB PO SCH (20:00)
[2017-12-08 20:07] LABS: Glucose,Whole Blood 141 mg/dL (75-99)
[2017-12-09 07:35] LABS: Glucose,Whole Blood 101 mg/dL (75-99)
[2017-12-09] MEDS: metFORMIN 500 MG TAB PO SCH (09:00)
[2017-12-09] MEDS: LABETALOL 200 MG TAB PO SCH (09:00)
[2017-12-09] MEDS: MONTELUKAST 10 MG TAB PO SCH (09:00)
[2017-12-09 12:08] LABS: Glucose,Whole Blood 138 mg/dL (75-99)
[2017-12-09] MEDS: INSULIN ASPART 100 UNIT/ML 1 ML 10 ML VIAL SQ SCH ×2 (12:15→12:43)
[2017-12-09] MEDS: CLOPIDOGREL 75 MG TAB PO SCH (15:39)
[2017-12-09] MEDS: QUEtiapine 100 MG TAB PO SCH (15:39)
[2017-12-09] MEDS: amLODIPine 5 MG TAB PO SCH (15:39)
[2017-12-09] MEDS: FAMOTIDINE 20 MG TAB PO SCH (15:39)
[2017-12-09] MEDS: LISINOPRIL 5 MG TAB PO SCH (15:52)
[2017-12-09 16:28] VITALS: BP 131/77; PULSE 74; RESP 17; TEMP 97.7
--- NOTE | 2017-12-09 17:44 | HP ---
HISTORY AND PHYSICAL CHIEF COMPLAINT: A 52-year-old white male admitted with uncontrolled diabetes mellitus, sugars in the 500s. Placed on insulin protocol. Dizzy, lightheaded with treated with IV steroids for COPD, asthma exacerbation, and he has been on a prednisone taper at home. Continues on antibiotics. He has had a recent stroke. He has left hemiparesis, has recurrent aspiration pneumonia. Medications he takes at home include: 1. Labetalol 400 b.i.d. 2. Lisinopril 5 mg daily. 3. Plavix 75 mg a day. 4. Pepcid 20 mg daily. 5. Lexapro 10 mg daily. 6. Lipitor 40 mg daily. 7. Norvasc 5 mg daily. 8. Singulair 10 mg daily. 9. Seroquel 50 mg b.i.d. 10.Metformin 500 b.i.d. 11.Ketoconazole 200 mg daily. 12.Ventolin HFA 2 puffs q.4 hours in nebulized solution. He will go home on Levemir insulin 10 units daily. Vital signs are stable. Afebrile. CARDIOVASCULAR: S1, S2. LUNGS: Clear. GI: Soft. PSYCH: Fair mood and affect. NEUROLOGIC: Left-sided paresis. He needs help sitting up in bed. INTEGUMENT: No rashes, excoriation or bruising. ASSESSMENT: 1. Uncontrolled diabetes mellitus. Sugars in the 500s. 2. Dehydration. 3. Asthma. 4. Chronic obstructive pulmonary disease exacerbation. 5. Aspiration pneumonia. He was started on insulin protocol and possibly Actos will be added 15 mg a day. Continue treatment for per Dr. Ramírez and Pulmonary. Will follow up in the next 24 to 48 hours for discharge once he is taught how to use insulin. His caregiver is sought. MMODL / IJN: [id number] /
== END 2017-12-09 17:13 | disposition home or self-care (01) ==
LOC: EC 15:34 → 4SSUR 18:22 → INTOOBSV 18:22
PROVIDERS: ADMIT Family Medicine; ATTEND Family Medicine
DX: E11.65 Type 2 diabetes mellitus with hyperglycemia (principal); J44.9 Chronic obstructive pulmonary disease, unspecified; J45.901 Unspecified asthma with (acute) exacerbation; I25.10 Atherosclerotic heart disease of native coronary artery without angina pectoris; I11.0 Hypertensive heart disease with heart failure; I50.9 Heart failure, unspecified; Z87.891 Personal history of nicotine dependence; K21.9 Gastro-esophageal reflux disease without esophagitis; E78.5 Hyperlipidemia, unspecified; Z95.1 Presence of aortocoronary bypass graft; I69.354 Hemiplegia and hemiparesis following cerebral infarction affecting left non-dominant side; I69.311 Memory deficit following cerebral infarction; I25.2 Old myocardial infarction; F31.9 Bipolar disorder, unspecified; R32 Unspecified urinary incontinence; R15.9 Full incontinence of feces; J84.10 Pulmonary fibrosis, unspecified; J69.0 Pneumonitis due to inhalation of food and vomit; E86.0 Dehydration; Z80.42 Family history of malignant neoplasm of prostate; Z80.0 Family history of malignant neoplasm of digestive organs; Z79.84 Long term (current) use of oral hypoglycemic drugs; Z79.02 Long term (current) use of antithrombotics/antiplatelets; Z79.899 Other long term (current) drug therapy; Z79.52 Long term (current) use of systemic steroids; Z91.011 Allergy to milk products; Z91.09 Other allergy status, other than to drugs and biological substances
CPT/HCPCS: 96360 ×2; 99284 ×2; 36415; 94640; 92610; 80053; 82009; 83735; 84100; 85025; 83036; G0378 ×3

== ENCOUNTER 2018-02-23 19:00 | Emergency (ER) | payer OTHER ==
[2018-02-23 19:08] VITALS: TEMP 98.6
[2018-02-23] MEDS ORDERED: IPRATROPIUM-ALBUTEROL 3 ML NEB INHALATION STA (19:22)
[2018-02-23] MEDS ORDERED: SODIUM CHLORIDE 0.9% 1,000 ML IV STA (19:22)
--- NOTE | 2018-02-23 19:32 | ED ---
SOB HPI - General Chief Complaint: Shortness of Breath Stated Complaint: SOB Time Seen by Provider: 02/23/18 19:13 Source: patient, family, RN notes reviewed, old records reviewed Mode of arrival: EMS Limitations: no limitations - History of Present Illness Initial Comments: Is a 52-year-old male history of multiple medical problems including CVA aspiration pneumonia who is here with shortness of breath this started last evening. Short of breath apparently is also been choking a lot over last couple days. No reports of fevers chills nausea vomiting sweats. He does have a history of CVA with left upper and lower extremity paralysis. No other modifying factors MD Complaint: shortness of breath - Related Data Home Medications Medication Instructions Recorded Confirmed Atorvastatin [Lipitor] 40 mg PO HS 07/01/17 02/23/18 Clopidogrel Bisulfate [Plavix] 75 mg PO DAILY 07/01/17 02/23/18 Escitalopram Oxalate [Lexapro] 10 mg PO DAILY 07/01/17 02/23/18 Famotidine [Pepcid] 20 mg PO BID 07/01/17 02/23/18 Labetalol HCl 400 mg PO BID 07/01/17 02/23/18 Lisinopril [Zestril] 5 mg PO DAILY 07/01/17 02/23/18 amLODIPine BESYLATE [Norvasc] 5 mg PO DAILY 07/01/17 02/23/18 Montelukast [Singulair] 10 mg PO DAILY 10/31/17 02/23/18 QUEtiapine [SEROquel] 50 - 100 mg PO HS 10/31/17 02/23/18 metFORMIN HCL 1,000 mg PO BID 02/23/18 02/23/18 Previous Rx's Medication Instructions Recorded Pioglitazone HCl [Actos] 15 mg PO DAILY #30 tablet 12/09/17 Amoxicillin/Potassium Clav 1 tab PO Q12HR #20 tab 02/23/18 [Augmentin 875-125 Tablet] Allergies Allergy/AdvReac Type Severity Reaction Status Date / Time perfume Allergy Dyspnea Verified 02/23/18 19:38 cheese AdvReac Unknown Verified 02/23/18 19:38 milk AdvReac Unknown Verified 02/23/18 19:38 Review of Systems ROS Statement: Those systems with pertinent positive or pertinent negative responses have been documented in the HPI. ROS Other: All systems not noted in ROS Statement are negative. Past Medical History Past Medical History: Asthma, Coronary Artery Disease (CAD), Chest Pain / Angina , Heart Failure, COPD, CVA/TIA, Diabetes Mellitus, GERD/Reflux, Hyperlipidemia, Hypertension, Memory Impairment, Myocardial Infarction ([place]), Pneumonia Additional Past Medical History / Comment(s): Pt recently admitted to [facility] with COPD, pulmonary fibrosis and tracheobronchitis. Other hx: 2017 Pt had 4 vessel CABG and had a CVA post op day 2-has L sided severe weakness and memory issues-his mother is his legal guardian, he stands with walker briefly to transfer into wheelchair, sometimes they use a gait belt, he has had falls, [place] 2017, tracheobronchitis, NIDDM type II but told no longer diabetic, reddened skin scrotal area, occasionally incontinent of urine/stool. Last Myocardial Infarction Date:: 2016 History of Any Multi-Drug Resistant Organisms: None Reported Past Surgical History: Appendectomy, Coronary Bypass/CABG, Heart Catheterization , Orthopedic Surgery Additional Past Surgical History / Comment(s): 2017 CABG 4 vessel, tracheostomy , L femur fracture with surgical repair. Past Anesthesia/Blood Transfusion Reactions: No Reported Reaction Past Psychological History: Bipolar Smoking Status: Former smoker Past Alcohol Use History: None Reported Past Drug Use History: None Reported - Past Family History Mother Family Medical History: Hypertension Father Family Medical History: Cancer, Coronary Artery Disease (CAD), Diabetes Mellitus , Pneumonia, Prostate Disorder Additional Family Medical History / Comment(s): Bipolar disorder, throat cancer , prostate cancer General Exam - General Exam Comments Initial Comments: This is a well-developed asthenic appearing male with some residual left facial paralysis as well as left upper lower extremity hemiplegia who does appear to be awake and alert Limitations: no limitations General appearance: alert, in no apparent distress Head exam: Present: atraumatic, normocephalic, normal inspection Eye exam: Present: normal appearance, PERRL, EOMI. Absent: scleral icterus, conjunctival injection, periorbital swelling ENT exam: Present: mucous membranes moist Neck exam: Present: normal inspection, full ROM, other (No stridor JVD or bruits ). Absent: tenderness, meningismus, lymphadenopathy Respiratory exam: Present: wheezes (Left lower lobe wheeze), decreased breath sounds. Absent: respiratory distress, rales, rhonchi, stridor Cardiovascular Exam: Present: regular rate, normal rhythm, normal heart sounds. Absent: systolic murmur, diastolic murmur, rubs, gallop, clicks GI/Abdominal exam: Present: soft, normal bowel sounds. Absent: distended, tenderness, guarding, rebound, rigid, bruit, pulsatile mass Extremities exam: Present: full ROM, normal capillary refill, other (Evidence of atrophy to the left upper lower extremity compared to the right.). Absent: tenderness, pedal edema, joint swelling, calf tenderness Back exam: Present: normal inspection Neurological exam: Present: alert, oriented X3, CN II-XII intact, motor sensory deficit Psychiatric exam: Present: normal affect, normal mood Skin exam: Present: warm, dry, intact, normal color. Absent: rash Course Vital Signs 02/23/18 02/23/18 02/23/18 19:04 20:26 20:36 Temperature 98.6 F Pulse Rate 68 67 68 Respiratory 16 Rate Blood Pressure 166/98 O2 Sat by Pulse 95 Oximetry Medical Decision Making - Medical Decision Making I did discuss the findings with the patient family members. Patient has had some evidence of aspiration. At this time he is in satisfactory condition for discharge she will be discharged after IV antibiotics with oral meds at the patient's and crush up. She is agreeable with this. She will follow-up with Dr. sierra if any problems. His breathing is much improved. - Lab Data Result diagrams: 02/23/18 19:35 02/23/18 19:35 Lab Results 02/23/18 02/23/18 02/23/18 Range/Units 19:35 19:35 19:35 WBC 11.9 H (3.8-10.6) k/uL RBC 4.41 (4.30-5.90) m/uL Hgb 13.2 (13.0-17.5) gm/dL Hct 38.6 L (39.0-53.0) % MCV 87.6 (80.0-100.0) fL MCH 29.9 (25.0-35.0) pg MCHC 34.1 (31.0-37.0) g/dL RDW 12.6 (11.5-15.5) % Plt Count 167 (150-450) k/uL Neutrophils % 75 % Lymphocytes % 13 % Monocytes % 5 % Eosinophils % 5 % Basophils % 0 % Neutrophils # 8.9 H (1.3-7.7) k/uL Lymphocytes # 1.5 (1.0-4.8) k/uL Monocytes # 0.6 (0-1.0) k/uL Eosinophils # 0.6 (0-0.7) k/uL Basophils # 0.0 (0-0.2) k/uL PT (9.0-12.0) sec INR (<1.2) APTT (22.0-30.0) sec Sodium 141 (137-145) mmol/L Potassium 4.0 (3.5-5.1) mmol/L Chloride 107 (98-107) mmol/L Carbon Dioxide 25 (22-30) mmol/L Anion Gap 9 mmol/L BUN 18 (9-20) mg/dL Creatinine 0.67 (0.66-1.25) mg/dL Est GFR (CKD-EPI)AfAm >90 (>60 ml/min/1.73 sqM) Est GFR (CKD-EPI)NonAf >90 (>60 ml/min/1.73 sqM) Glucose 95 (74-99) mg/dL Calcium 9.8 (8.4-10.2) mg/dL Magnesium 1.7 (1.6-2.3) mg/dL Total Bilirubin 0.7 (0.2-1.3) mg/dL AST 25 (17-59) U/L ALT 35 (21-72) U/L Alkaline Phosphatase 66 (38-126) U/L Total Creatine Kinase 110 (55-170) U/L CK-MB (CK-2) 1.5 (0.0-2.4) ng/mL CK-MB (CK-2) Rel Index 1.4 Troponin I 0.013 (0.000-0.034) ng/mL NT-Pro-B Natriuret Pep pg/mL Total Protein 6.1 L (6.3-8.2) g/dL Albumin 4.1 (3.5-5.0) g/dL 02/23/18 02/23/18 Range/Units 19:35 19:35 WBC (3.8-10.6) k/uL RBC (4.30-5.90) m/uL Hgb (13.0-17.5) gm/dL Hct (39.0-53.0) % MCV (80.0-100.0) fL MCH (25.0-35.0) pg MCHC (31.0-37.0) g/dL RDW (11.5-15.5) % Plt Count (150-450) k/uL Neutrophils % % Lymphocytes % % Monocytes % % Eosinophils % % Basophils % % Neutrophils # (1.3-7.7) k/uL Lymphocytes # (1.0-4.8) k/uL Monocytes # (0-1.0) k/uL Eosinophils # (0-0.7) k/uL Basophils # (0-0.2) k/uL PT 10.7 (9.0-12.0) sec INR 1.0 (<1.2) APTT 25.2 (22.0-30.0) sec Sodium (137-145) mmol/L Potassium (3.5-5.1) mmol/L Chloride (98-107) mmol/L Carbon Dioxide (22-30) mmol/L Anion Gap mmol/L BUN (9-20) mg/dL Creatinine (0.66-1.25) mg/dL Est GFR (CKD-EPI)AfAm (>60 ml/min/1.73 sqM) Est GFR (CKD-EPI)NonAf (>60 ml/min/1.73 sqM) Glucose (74-99) mg/dL Calcium (8.4-10.2) mg/dL Magnesium (1.6-2.3) mg/dL Total Bilirubin (0.2-1.3) mg/dL AST (17-59) U/L ALT (21-72) U/L Alkaline Phosphatase (38-126) U/L Total Creatine Kinase (55-170) U/L CK-MB (CK-2) (0.0-2.4) ng/mL CK-MB (CK-2) Rel Index Troponin I (0.000-0.034) ng/mL NT-Pro-B Natriuret Pep 318 pg/mL Total Protein (6.3-8.2) g/dL Albumin (3.5-5.0) g/dL - EKG Data -: EKG Interpreted by Id EKG shows normal: sinus rhythm (Sinus rhythm a 66. Interval 176 QRS duration 102 QT since QTC 358/375 nonspecific T-wave configuration no acute ST elevation or depression seen) - Radiology Data Radiology results: report reviewed (I did review the imaging and report is evidence of a posterior infiltrate.), image reviewed Disposition Clinical Impression: Pneumonia, Bronchospasm Disposition: HOME SELF-CARE Condition: Good Instructions: Bronchospasm (ED), Bacterial Pneumonia (ED) Prescriptions: Amoxicillin/Potassium Clav [Augmentin 875-125 Tablet] 1 tab PO Q12HR #20 tab Is patient prescribed a controlled substance at d/c from ED?: No Referrals: Trae Magana MD [Primary Care Provider] - 1-2 days
[2018-02-23 19:47] LABS: Basophils % (A) 0 %; Eosinophils # (A) 0.6 k/uL (0-0.7); Eosinophils % (A) 5 %; HCT 38.6 % (39.0-53.0); HGB 13.2 gm/dL (13.0-17.5); Lymphocytes # (A) 1.5 k/uL (1.0-4.8); Lymphocytes % (A) 13 %; MCH 29.9 pg (25.0-35.0); MCHC 34.1 g/dL (31.0-37.0); MCV 87.6 fL (80.0-100.0); Mean Platelet Volume 7.2; Monocytes # (A) 0.6 k/uL (0-1.0); Monocytes % (A) 5 %; Neutrophils # (A) 8.9 k/uL (1.3-7.7); Neutrophils % (A) 75 %; Platelet Count 167 k/uL (150-450); RBC 4.41 m/uL (4.30-5.90); RDW 12.6 % (11.5-15.5); WBC 11.9 k/uL (3.8-10.6)
[2018-02-23 19:55] LABS: ALT 35 U/L (21-72); AST 25 U/L (17-59); Albumin 4.1 g/dL (3.5-5.0); Alkaline Phosphatase 66 U/L (38-126); Anion Gap 9 mmol/L; Blood Urea Nitrogen 18 mg/dL (9-20); Calcium 9.8 mg/dL (8.4-10.2); Carbon Dioxide 25 mmol/L (22-30); Chloride 107 mmol/L (98-107); Glucose 95 mg/dL (74-99); Magnesium 1.7 mg/dL (1.6-2.3); Sodium 141 mmol/L (137-145); Total Bilirubin 0.7 mg/dL (0.2-1.3); Total Protein 6.1 g/dL (6.3-8.2)
[2018-02-23 19:58] LABS: Partial Thromboplastin Time 25.2 sec (22.0-30.0); Prothrombin Time 10.7 sec (9.0-12.0)
--- NOTE | 2018-02-23 20:02 | CT ---
EXAMINATION TYPE: CT brain wo con DATE OF EXAM: 02/23/2018 COMPARISON: 10/17/2016 INDICATION: shortness of breath, hx of falls DLP: 1070.4 mGycm, Automated exposure control for dose reduction was used. CONTRAST: None CT of the brain is performed utilizing 3 mm thick sections through the posterior fossa and 3 mm thick sections through the remaining calvarium. Study is performed within 24 hours of arrival to the hosp [place]. No abnormal hyperdensity is present to suggest an acute intracranial hemorrhage. No mass lesion is evident. No acute infarcts are evident. There is confluent periventricular white matter hypodensity, likely on the basis of chronic white matter ischemic changes. A very tiny left lacunar infarct may be present which is old present previously. Ventricles and sulci are appropriate for the patient age. Paranasal sinuses and mastoid air cells within the [id number] are clear. IMPRESSIONS: 1. Atrophy with periventricular white matter ischemic changes, stable.
[2018-02-23 20:12] LABS: Creatine Kinase MB 1.5 ng/mL (0.0-2.4); Troponin I 0.013 ng/mL (0.000-0.034)
--- NOTE | 2018-02-23 21:04 | XR ---
EXAMINATION TYPE: XR chest 2V DATE OF EXAM: 02/23/2018 COMPARISON: 12/06/2017 INDICATION: Difficulty breathing TECHNIQUE: Frontal and lateral views of the chest are obtained. FINDINGS: The heart size is normal. The pulmonary vasculature is normal. On the lateral projection there is some increased density overlying the lower portion of the spine blunt ggesting a posterior infiltrate.. IMPRESSION: 1. Suggestion of a posterior infiltrate. Correlate for pneumonia. Follow-up can be performed as clini mitchell indicated.
[2018-02-23 22:20] VITALS: BP 150/87; PULSE 67; RESP 18
== END 2018-02-23 22:18 | disposition home or self-care (01) ==
LOC: EC 19:00
DX: J18.9 Pneumonia, unspecified organism (principal); J98.01 Acute bronchospasm; I69.354 Hemiplegia and hemiparesis following cerebral infarction affecting left non-dominant side; G51.0 Bell's palsy; J44.0 Chronic obstructive pulmonary disease with (acute) lower respiratory infection; E78.5 Hyperlipidemia, unspecified; I11.0 Hypertensive heart disease with heart failure; I50.9 Heart failure, unspecified; I25.119 Atherosclerotic heart disease of native coronary artery with unspecified angina pectoris; E11.9 Type 2 diabetes mellitus without complications; K21.9 Gastro-esophageal reflux disease without esophagitis; I69.311 Memory deficit following cerebral infarction; I25.2 Old myocardial infarction; F31.9 Bipolar disorder, unspecified; Z87.891 Personal history of nicotine dependence; Z91.011 Allergy to milk products; Z91.048 Other nonmedicinal substance allergy status; Z79.02 Long term (current) use of antithrombotics/antiplatelets; Z79.84 Long term (current) use of oral hypoglycemic drugs; Z79.899 Other long term (current) drug therapy; Z95.1 Presence of aortocoronary bypass graft; Z93.0 Tracheostomy status; Z82.5 Family history of asthma and other chronic lower respiratory diseases
CPT/HCPCS: 36415; 94640; 93005; 83880; 80053; 82550; 82553; 83735; 84484; 85025; 85610; 85730; 87040; 71046; 70450; 99285; 96365; 96361; J0696

== ENCOUNTER 2018-08-10 08:50 | Inpatient (IN) | payer OTHER ==
[2018-08-10] MEDS ORDERED: ALBUTEROL NEBULIZED 2.5 MG/3 ML INHALATION STA (08:53)
[2018-08-10] MEDS ORDERED: PIPERACILLIN-TAZOBACTAM 3.375 GM in SODIUM CHLORIDE 0.9% 100 ML IVPB STA (08:53)
[2018-08-10] MEDS ORDERED: IPRATROPIUM 0.5 MG/2.5 ML NEBU INHALATION STA (08:53)
[2018-08-10] MEDS ORDERED: methylPREDNISolone SOD SUCCI 125 MG/2 ML VIAL IV STA (08:53)
--- NOTE | 2018-08-10 09:08 | ED ---
General Adult HPI - General Stated complaint: JERARDO Time Seen by Provider: 08/10/18 08:53 Source: patient, EMS, RN notes reviewed, old records reviewed Mode of arrival: EMS Limitations: altered mental status, physical limitation - History of Present Illness Initial comments: 52-year-old male presenting for evaluation of cough dyspnea. Patient had procedure earlier in the week for evaluation of aspiration. He has had multiple issues with aspiration in the past status post CVA. He's had increased cough and dyspnea over the past 3 days. History is limited secondary to patient's previous CVA. History obtained from EMS report stable vitals, he was given DuoNeb in transport. He does have previous history of smoking and COPD. Residual deficit status post CVA. - Related Data Home Medications Medication Instructions Recorded Confirmed Atorvastatin [Lipitor] 40 mg PO HS 07/01/17 08/10/18 Clopidogrel Bisulfate [Plavix] 75 mg PO DAILY 07/01/17 08/10/18 Escitalopram Oxalate [Lexapro] 10 mg PO DAILY 07/01/17 08/10/18 Famotidine [Pepcid] 20 mg PO DAILY 07/01/17 08/10/18 Labetalol HCl 400 mg PO BID 07/01/17 08/10/18 Lisinopril [Zestril] 5 mg PO DAILY 07/01/17 08/10/18 amLODIPine BESYLATE [Norvasc] 5 mg PO DAILY 07/01/17 08/10/18 Montelukast [Singulair] 10 mg PO DAILY 10/31/17 08/10/18 QUEtiapine [SEROquel] 50 mg PO BID 10/31/17 08/10/18 metFORMIN HCL 1,000 mg PO BID 02/23/18 08/10/18 Ipratropium-Albuterol Nebulize 3 ml INHALATION RT-TID PRN 08/10/18 08/10/18 [Duoneb 0.5 mg-3 mg/3 ml Soln] Previous Rx's Medication Instructions Recorded Pioglitazone HCl [Actos] 15 mg PO DAILY #30 tablet 12/09/17 Allergies Allergy/AdvReac Type Severity Reaction Status Date / Time perfume Allergy Dyspnea Verified 08/10/18 09:05 cheese AdvReac CONGESTION Verified 08/10/18 09:05 milk AdvReac CONGESTION Verified 06/28/19 09:05 Review of Systems ROS Statement: Those systems with pertinent positive or pertinent negative responses have been documented in the HPI. ROS Other: All systems not noted in ROS Statement are negative. Past Medical History Past Medical History: Asthma, Coronary Artery Disease (CAD), Chest Pain / Angina, Heart Failure, COPD, CVA/TIA, Diabetes Mellitus, GERD/Reflux, Hyperlipidemia, Hypertension, Memory Impairment, Myocardial Infarction ([place]), Pneumonia Additional Past Medical History / Comment(s): Pt recently admitted to [facility] with COPD, pulmonary fibrosis and tracheobronchitis. Other hx: 2017 Pt had 4 vessel CABG and had a CVA post op day 2-has L sided severe weakness and memory issues-his mother is his legal guardian, he stands with walker briefly to transfer into wheelchair, sometimes they use a gait belt, he has had falls, [place] 2017, tracheobronchitis, NIDDM type II but told no longer diabetic, reddened skin scrotal area, occasionally incontinent of urine/stool. Last Myocardial Infarction Date:: 2016 History of Any Multi-Drug Resistant Organisms: None Reported Past Surgical History: Appendectomy, Coronary Bypass/CABG, Heart Catheterization, Orthopedic Surgery Additional Past Surgical History / Comment(s): 2017 CABG 4 vessel, tracheostomy, L femur fracture with surgical repair. Past Anesthesia/Blood Transfusion Reactions: No Reported Reaction Past Psychological History: Bipolar Smoking Status: Former smoker Past Alcohol Use History: None Reported Past Drug Use History: None Reported - Past Family History Mother Family Medical History: Hypertension Father Family Medical History: Cancer, Coronary Artery Disease (CAD), Diabetes Mellitus, Pneumonia, Prostate Disorder Additional Family Medical History / Comment(s): Bipolar disorder, throat cancer, prostate cancer General Exam Limitations: altered mental status, physical limitation General appearance: alert, in no apparent distress Head exam: Present: atraumatic, normocephalic Eye exam: Present: normal appearance, PERRL ENT exam: Present: normal exam Neck exam: Present: normal inspection. Absent: tenderness, meningismus Respiratory exam: Present: respiratory distress, wheezes, rhonchi Cardiovascular Exam: Present: regular rate, normal rhythm GI/Abdominal exam: Present: soft. Absent: distended, tenderness, guarding Extremities exam: Present: normal capillary refill. Absent: pedal edema Neurological exam: Present: alert, oriented X3 Psychiatric exam: Present: normal affect, normal mood Skin exam: Present: warm, dry, intact. Absent: cyanosis, diaphoretic Course Vital Signs 08/10/18 08/10/18 08/10/18 08:58 09:22 09:44 Temperature 98.9 F Pulse Rate 77 72 68 Respiratory 200 H Rate Blood Pressure 148/90 O2 Sat by Pulse 96 Oximetry EKG Findings - EKG Comments: EKG Findings:: EKG: Normal sinus rhythm, rate of 71, OR interval 176, QRS duration 86, QT [address] segment elevation Medical Decision Making - Medical Decision Making 52-year-old male with cough dyspnea, concern for aspiration. Patient has wheezing throughout both lung sal, history of COPD. He is in moderate respiratory distress. X-ray obtained, showsThe wound is, patient is covered with broad-spectrum antibiotics over this may be chronic. He has a normal CBC, no leukocytosis, normal CMP, negative BNP. After initial treatment he does have improved air entry with persistent wheezing. Will be admitted for COPD exacerbation. Case is discussed with Dr. Magana who will admit. - Lab Data Result diagrams: 08/10/18 09:12 08/10/18 09:12 Lab Results 08/10/18 08/10/18 08/10/18 Range/Units 09:12 09:12 09:12 WBC 6.9 (3.8-10.6) k/uL RBC 4.56 (4.30-5.90) m/uL Hgb 13.3 (13.0-17.5) gm/dL Hct 38.9 L (39.0-53.0) % MCV 85.3 (80.0-100.0) fL MCH 29.2 (25.0-35.0) pg MCHC 34.2 (31.0-37.0) g/dL RDW 14.9 (11.5-15.5) % Plt Count 175 (150-450) k/uL Neutrophils % 61 % Lymphocytes % 17 % Monocytes % 6 % Eosinophils % 13 % Basophils % 1 % Neutrophils # 4.2 (1.3-7.7) k/uL Lymphocytes # 1.2 (1.0-4.8) k/uL Monocytes # 0.4 (0-1.0) k/uL Eosinophils # 0.9 H (0-0.7) k/uL Basophils # 0.1 (0-0.2) k/uL PT (9.0-12.0) sec INR (<1.2) APTT (22.0-30.0) sec Sodium 142 (137-145) mmol/L Potassium 3.9 (3.5-5.1) mmol/L Chloride 107 (98-107) mmol/L Carbon Dioxide 28 (22-30) mmol/L Anion Gap 7 mmol/L BUN 23 H (9-20) mg/dL Creatinine 0.72 (0.66-1.25) mg/dL Est GFR (CKD-EPI)AfAm >90 (>60 ml/min/1.73 sqM) Est GFR (CKD-EPI)NonAf >90 (>60 ml/min/1.73 sqM) Glucose 99 (74-99) mg/dL Calcium 9.7 (8.4-10.2) mg/dL Magnesium 1.7 (1.6-2.3) mg/dL Total Bilirubin 0.6 (0.2-1.3) mg/dL AST 20 (17-59) U/L ALT 26 (21-72) U/L Alkaline Phosphatase 57 (38-126) U/L NT-Pro-B Natriuret Pep 288 pg/mL Total Protein 6.1 L (6.3-8.2) g/dL Albumin 4.0 (3.5-5.0) g/dL 08/10/18 Range/Units 09:12 WBC (3.8-10.6) k/uL RBC (4.30-5.90) m/uL Hgb (13.0-17.5) gm/dL Hct (39.0-53.0) % MCV (80.0-100.0) fL MCH (25.0-35.0) pg MCHC (31.0-37.0) g/dL RDW (11.5-15.5) % Plt Count (150-450) k/uL Neutrophils % % Lymphocytes % % Monocytes % % Eosinophils % % Basophils % % Neutrophils # (1.3-7.7) k/uL Lymphocytes # (1.0-4.8) k/uL Monocytes # (0-1.0) k/uL Eosinophils # (0-0.7) k/uL Basophils # (0-0.2) k/uL PT 11.0 (9.0-12.0) sec INR 1.0 (<1.2) APTT 24.4 (22.0-30.0) sec Sodium (137-145) mmol/L Potassium (3.5-5.1) mmol/L Chloride (98-107) mmol/L Carbon Dioxide (22-30) mmol/L Anion Gap mmol/L BUN (9-20) mg/dL Creatinine (0.66-1.25) mg/dL Est GFR (CKD-EPI)AfAm (>60 ml/min/1.73 sqM) Est GFR (CKD-EPI)NonAf (>60 ml/min/1.73 sqM) Glucose (74-99) mg/dL Calcium (8.4-10.2) mg/dL Magnesium (1.6-2.3) mg/dL Total Bilirubin (0.2-1.3) mg/dL AST (17-59) U/L ALT (21-72) U/L Alkaline Phosphatase (38-126) U/L NT-Pro-B Natriuret Pep pg/mL Total Protein (6.3-8.2) g/dL Albumin (3.5-5.0) g/dL Disposition Clinical Impression: Acute exacerbation of chronic obstructive airways disease Disposition: ADMITTED IP TO THIS [facility] Condition: Stable Is patient prescribed a controlled substance at d/c from ED?: No Referrals: Trae Magana MD [Primary Care Provider] - 1-2 days Decision to Admit Reason: Admit from EC Decision Date: 08/10/18 Decision Time: 11:15
[2018-08-10 09:25] LABS: Basophils # (A) 0.1 k/uL (0-0.2); Basophils % (A) 1 %; Eosinophils # (A) 0.9 k/uL (0-0.7); Eosinophils % (A) 13 %; HCT 38.9 % (39.0-53.0); HGB 13.3 gm/dL (13.0-17.5); Lymphocytes # (A) 1.2 k/uL (1.0-4.8); Lymphocytes % (A) 17 %; MCH 29.2 pg (25.0-35.0); MCHC 34.2 g/dL (31.0-37.0); MCV 85.3 fL (80.0-100.0); Mean Platelet Volume 8.2; Monocytes # (A) 0.4 k/uL (0-1.0); Monocytes % (A) 6 %; Neutrophils # (A) 4.2 k/uL (1.3-7.7); Neutrophils % (A) 61 %; Platelet Count 175 k/uL (150-450); RBC 4.56 m/uL (4.30-5.90); RDW 14.9 % (11.5-15.5); WBC 6.9 k/uL (3.8-10.6)
[2018-08-10 09:34] LABS: Partial Thromboplastin Time 24.4 sec (22.0-30.0)
[2018-08-10 09:43] LABS: ALT 26 U/L (21-72); AST 20 U/L (17-59); African American GFR (CKD) >90 (>60 ml/min/1.73 sqM); Alkaline Phosphatase 57 U/L (38-126); Anion Gap 7 mmol/L; Blood Urea Nitrogen 23 mg/dL (9-20); Calcium 9.7 mg/dL (8.4-10.2); Carbon Dioxide 28 mmol/L (22-30); Chloride 107 mmol/L (98-107); Glucose 99 mg/dL (74-99); Magnesium 1.7 mg/dL (1.6-2.3); Potassium 3.9 mmol/L (3.5-5.1); Sodium 142 mmol/L (137-145); Total Bilirubin 0.6 mg/dL (0.2-1.3); Total Protein 6.1 g/dL (6.3-8.2)
--- NOTE | 2018-08-10 10:05 | XR ---
EXAMINATION TYPE: XR chest 2V DATE OF EXAM: 08/10/2018 COMPARISON: 03/02/2018 and 11/10/2017 HISTORY: 52 year-old male shortness of breath, difficulty breathing TECHNIQUE: AP and lateral views FINDINGS: Heart is borderline in size. Median sternotomy wires and post-CABG clips in the mediastinum. Mild leslie ngation thoracic aorta. Mild interstitial prominence is chronic appearance. Focal patchy peripheral l eft basilar opacity seems increased from 11/10/2017 relatively stable from recent priors. IMPRESSION: Borderline heart size and chronic changes. Some patchy peripheral left basilar density is similar fro m recent prior studies but increased from 11/02/2017. Underlying scarring versus recurrent infiltrate are considered.
[2018-08-10] MEDS ORDERED: IPRATROPIUM-ALBUTEROL 3 ML NEB INHALATION PRN (11:15)
[2018-08-10] MEDS ORDERED: Potassium Replacement Protocol 1 EACH MISC MISCELLANE PRN (11:54)
--- NOTE | 2018-08-10 12:18 | P.HPIM ---
History of Present Illness H&P Date: 08/10/18 This is a 52-year-old gentleman, history of COPD, CHF, CAD, aspiration status post CVA, residual left hemiparesis, bipolar, former nicotine dependence, history of substance abuse, and multiple other medical issues presented to the ER with worsening cough and dyspnea over the last 3 days. Reports had a procedure earlier in the week, evaluating for aspiration. Denies any recent fever or chills, chest pain, back pain, abdominal pain, nausea, vomiting, headaches, visual changes .Afebrile, normal WBC, tachypneic, maintaining O2 sats in the high 90s on room air.Chest x-ray reporting patchy peripheral left basilar density, similar but increased from prior studies, underlying scarring versus recurrent infiltrate. EKG reporting normal sinus rhythm. CBC, CMP normal. BNP negative. Review of Systems ROS Statement: Those systems with pertinent positive or pertinent negative responses have been documented in the HPI. ROS Other: All systems not noted in ROS Statement are negative. Past Medical History Past Medical History: Asthma, Coronary Artery Disease (CAD), Chest Pain / Angina, Heart Failure, COPD, CVA/TIA, Diabetes Mellitus, GERD/Reflux, Hyperlipidemia, Hypertension, Memory Impairment, Myocardial Infarction ([place]), Pneumonia Additional Past Medical History / Comment(s): Pt recently admitted to [facility] with COPD, pulmonary fibrosis and tracheobronchitis. Other hx: 2017 Pt had 4 vessel CABG and had a CVA post op day 2-has L sided severe weakness and memory issues-his mother is his legal guardian, he stands with walker briefly to transfer into wheelchair, sometimes they use a gait belt, he has had falls, [place] 2017, tracheobronchitis, NIDDM type II but told no longer diabetic, reddened skin scrotal area, occasionally incontinent of urine/stool. Last Myocardial Infarction Date:: 2017 History of Any Multi-Drug Resistant Organisms: None Reported Past Surgical History: Appendectomy, Coronary Bypass/CABG, Heart Catheterization, Orthopedic Surgery Additional Past Surgical History / Comment(s): 2017 CABG 4 vessel, tracheostomy, L femur fracture with surgical repair. Past Anesthesia/Blood Transfusion Reactions: No Reported Reaction Past Psychological History: Bipolar Smoking Status: Former smoker Past Alcohol Use History: None Reported Past Drug Use History: None Reported - Past Family History Mother Family Medical History: Hypertension Father Family Medical History: Cancer, Coronary Artery Disease (CAD), Diabetes Mellitus, Pneumonia, Prostate Disorder Additional Family Medical History / Comment(s): Bipolar disorder, throat cancer, prostate cancer Medications and Allergies Home Medications Medication Instructions Recorded Confirmed Type Atorvastatin [Lipitor] 40 mg PO HS 07/01/17 08/10/18 History Clopidogrel Bisulfate [Plavix] 75 mg PO DAILY 07/01/17 08/10/18 History Escitalopram Oxalate [Lexapro] 10 mg PO DAILY 07/01/17 08/10/18 History Famotidine [Pepcid] 20 mg PO DAILY 07/01/17 08/10/18 History Labetalol HCl 400 mg PO BID 07/01/17 08/10/18 History Lisinopril [Zestril] 5 mg PO DAILY 07/01/17 08/10/18 History amLODIPine BESYLATE [Norvasc] 5 mg PO DAILY 07/01/17 08/10/18 History Montelukast [Singulair] 10 mg PO DAILY 10/31/17 08/10/18 History QUEtiapine [SEROquel] 50 mg PO BID 10/31/17 08/10/18 History Pioglitazone HCl [Actos] 15 mg PO DAILY #30 tablet 12/09/17 08/10/18 Rx metFORMIN HCL 1,000 mg PO BID 02/23/18 08/10/18 History Ipratropium-Albuterol Nebulize 3 ml INHALATION RT-TID PRN 08/10/18 08/10/18 History [Duoneb 0.5 mg-3 mg/3 ml Soln] Allergies Allergy/AdvReac Type Severity Reaction Status Date / Time perfume Allergy Dyspnea Verified 08/10/18 09:05 cheese AdvReac CONGESTION Verified 08/10/18 09:05 milk AdvReac CONGESTION Verified 08/10/18 09:05 Physical Exam Vitals: Vital Signs Temp Pulse Resp BP Pulse Ox 08/10/18 11:30 72 21 161/85 95 08/10/18 11:00 63 20 160/93 97 08/10/18 10:30 67 20 160/94 97 08/10/18 10:00 65 19 172/103 97 08/10/18 09:44 68 08/10/18 09:30 72 20 149/90 100 08/10/18 09:22 72 08/10/18 08:58 98.9 F 77 200 H 148/90 96 Intake and Output 08/09/18 08/10/18 08/10/18 22:59 06:59 14:59 Other: Weight 77.111 kg PHYSICAL EXAM: VITAL SIGNS: As above GENERAL: Sitting up in bed, increased respiratory effort HEENT: Conjunctivae normal. eyes normal. Poor dentition. NECK: No JVD. No thyroid enlargement. No LNs CARDIOVASCULAR: S1, S2 regular.. No murmur RESPIRATION: Breath sounds diminished in the bases. Positive rhonchi, no crackles. Positive expiratory wheezing. ABDOMEN: Soft, nontender . No guarding. no masses palpable. No ascites, No hepatosplenomegaly.Bowel sounds heard. LEGS: No edema. no swelling PSYCHIATRY: Alert and oriented X3, mood and affect normal. NERVOUS SYSTEM: Cranial N 2-12 grossly normal. Generalized weakness with Chronic left-sided weakness-CVA residual Skin: no lesions, no rash Lymphatic system. No LN neck axilla or groin. Results CBC & Chem 7: 08/10/18 09:12 08/10/18 09:12 Labs: Abnormal Lab Results - Last 24 Hours (Table) 08/10/18 08/10/18 Range/Units 09:12 09:12 Hct 38.9 L (39.0-53.0) % Eosinophils # 0.9 H (0-0.7) k/uL BUN 23 H (9-20) mg/dL Total Protein 6.1 L (6.3-8.2) g/dL Assessment and Plan Assessment: -Acute COPD exacerbation -Diabetes mellitus -Chronic CHF, type currently unknown -CAD, history of CABG -Gastroesophageal reflux -History of CVA/TIA with residual left-sided weakness -Pulmonary fibrosis -Memory impairment, type unknown. -Gait dysfunction, history of falls Plan: Continue current medication regime ,monitoring and symptomatic treatment. Broad-spectrum IV antibiotics, IV steroids and nebulized bronchodilators initiated. Sputum culture for Gram stain and culture ordered. Close monitoring of Accu-Cheks. GI prophylaxis in place. Home meds have been reviewed and resumed. Further recommendations to follow. The impression and plan of care has been dictated as directed. : I performed a history and examination of this patient, discussed the same with the dictator. I agree with the dictator's note ,documented as a scribe. Any additional findings or plans will be noted. Time taken: 35 minutes
[2018-08-10] MEDS: PIOGLITAZONE 15 MG TAB PO SCH (13:51)
[2018-08-10] MEDS: methylPREDNISolone SOD SUCCI 125 MG/2 ML VIAL IV SCH ×2 (13:51→17:20)
[2018-08-10] MEDS: LISINOPRIL 5 MG TAB PO SCH (13:51)
[2018-08-10] MEDS: FAMOTIDINE 20 MG TAB PO SCH (13:51)
[2018-08-10] MEDS: INSULIN ASPART (NovoLOG) 100 UNIT/ML VIAL SQ SCH ×3 (13:52→21:39)
[2018-08-10] MEDS: IPRATROPIUM-ALBUTEROL 3 ML NEB INHALATION SCH ×3 (16:27→20:43)
[2018-08-10 16:58] LABS: Glucose,Whole Blood 226 mg/dL (75-99)
[2018-08-10] MEDS: PIPERACILLIN-TAZOBACTAM 3.375 GM in SODIUM CHLORIDE 0.9% 100 ML IVPB SCH (17:20)
[2018-08-10] MEDS: metFORMIN 500 MG TAB PO SCH (17:21)
[2018-08-10 20:39] LABS: Glucose,Whole Blood 161 mg/dL (75-99)
[2018-08-10] MEDS: SYMBICORT 160-4.5 MCG INHALER INHALATION SCH (20:43)
[2018-08-10] MEDS: QUEtiapine 50 MG TAB PO SCH (21:35)
[2018-08-10] MEDS: LABETALOL 200 MG TAB PO SCH (21:35)
[2018-08-10] MEDS: ATORVASTATIN 40 MG TAB PO SCH (21:35)
[2018-08-10] MEDS: MONTELUKAST 10 MG TAB PO SCH (21:36)
[2018-08-11] MEDS: PIPERACILLIN-TAZOBACTAM 3.375 GM in SODIUM CHLORIDE 0.9% 100 ML IVPB SCH ×4 (00:30→23:31)
[2018-08-11] MEDS: methylPREDNISolone SOD SUCCI 125 MG/2 ML VIAL IV SCH ×5 (00:30→23:30)
[2018-08-11 07:24] LABS: Glucose,Whole Blood 189 mg/dL (75-99)
[2018-08-11] MEDS: SYMBICORT 160-4.5 MCG INHALER INHALATION SCH ×2 (07:30→20:33)
[2018-08-11] MEDS: IPRATROPIUM-ALBUTEROL 3 ML NEB INHALATION SCH ×4 (07:30→20:33)
[2018-08-11] MEDS: QUEtiapine 50 MG TAB PO SCH ×2 (07:32→20:25)
[2018-08-11] MEDS: CLOPIDOGREL 75 MG TAB PO SCH (07:32)
[2018-08-11] MEDS: INSULIN ASPART (NovoLOG) 100 UNIT/ML VIAL SQ SCH ×4 (07:32→20:26)
[2018-08-11] MEDS: MONTELUKAST 10 MG TAB PO SCH (07:32)
[2018-08-11] MEDS: FAMOTIDINE 20 MG TAB PO SCH (07:32)
[2018-08-11] MEDS: LABETALOL 200 MG TAB PO SCH ×2 (07:32→20:25)
[2018-08-11] MEDS: metFORMIN 500 MG TAB PO SCH ×2 (07:32→17:57)
[2018-08-11] MEDS: LISINOPRIL 5 MG TAB PO SCH (07:32)
[2018-08-11] MEDS: amLODIPine 5 MG TAB PO SCH (07:32)
[2018-08-11] MEDS: ESCITALOPRAM 10 MG TAB PO SCH (07:32)
[2018-08-11] MEDS: PIOGLITAZONE 15 MG TAB PO SCH (07:33)
[2018-08-11 09:05] LABS: African American GFR (CKD) >90 (>60 ml/min/1.73 sqM); Anion Gap 13 mmol/L; Blood Urea Nitrogen 31 mg/dL (9-20); Calcium 10.5 mg/dL (8.4-10.2); Carbon Dioxide 24 mmol/L (22-30); Chloride 104 mmol/L (98-107); Glucose 159 mg/dL (74-99); Sodium 141 mmol/L (137-145)
[2018-08-11 10:02] LABS: Basophils % (A) 0 %; Eosinophils % (A) 0 %; HCT 40.2 % (39.0-53.0); HGB 13.6 gm/dL (13.0-17.5); Lymphocytes # (A) 0.9 k/uL (1.0-4.8); Lymphocytes % (A) 6 %; MCH 28.9 pg (25.0-35.0); MCHC 33.8 g/dL (31.0-37.0); MCV 85.4 fL (80.0-100.0); Mean Platelet Volume 8.3; Monocytes # (A) 0.3 k/uL (0-1.0); Monocytes % (A) 3 %; Neutrophils # (A) 12.6 k/uL (1.3-7.7); Neutrophils % (A) 91 %; Platelet Count 188 k/uL (150-450); RBC 4.71 m/uL (4.30-5.90); RDW 14.2 % (11.5-15.5); WBC 13.9 k/uL (3.8-10.6)
[2018-08-11 12:18] LABS: Glucose,Whole Blood 139 mg/dL (75-99)
[2018-08-11 17:10] LABS: Glucose,Whole Blood 174 mg/dL (75-99)
[2018-08-11 20:22] LABS: Glucose,Whole Blood 215 mg/dL (75-99)
[2018-08-11] MEDS: ATORVASTATIN 40 MG TAB PO SCH (20:25)
[2018-08-12] MEDS: methylPREDNISolone SOD SUCCI 125 MG/2 ML VIAL IV SCH ×4 (05:44→23:27)
[2018-08-12] MEDS: LABETALOL 200 MG TAB PO SCH ×2 (07:14→21:16)
[2018-08-12] MEDS: LISINOPRIL 5 MG TAB PO SCH (07:14)
[2018-08-12] MEDS: metFORMIN 500 MG TAB PO SCH ×2 (07:14→17:00)
[2018-08-12] MEDS: CLOPIDOGREL 75 MG TAB PO SCH (07:14)
[2018-08-12] MEDS: QUEtiapine 50 MG TAB PO SCH ×2 (07:14→21:16)
[2018-08-12] MEDS: FAMOTIDINE 20 MG TAB PO SCH (07:14)
[2018-08-12] MEDS: ESCITALOPRAM 10 MG TAB PO SCH (07:14)
[2018-08-12] MEDS: MONTELUKAST 10 MG TAB PO SCH (07:14)
[2018-08-12] MEDS: amLODIPine 5 MG TAB PO SCH (07:14)
[2018-08-12] MEDS: PIOGLITAZONE 15 MG TAB PO SCH (07:15)
[2018-08-12] MEDS: PIPERACILLIN-TAZOBACTAM 3.375 GM in SODIUM CHLORIDE 0.9% 100 ML IVPB SCH ×3 (07:15→23:27)
[2018-08-12 07:26] LABS: Glucose,Whole Blood 167 mg/dL (75-99)
[2018-08-12] MEDS: INSULIN ASPART (NovoLOG) 100 UNIT/ML VIAL SQ SCH ×4 (07:57→21:16)
[2018-08-12] MEDS: SYMBICORT 160-4.5 MCG INHALER INHALATION SCH ×2 (09:01→20:45)
[2018-08-12] MEDS: IPRATROPIUM-ALBUTEROL 3 ML NEB INHALATION SCH ×4 (09:01→20:45)
[2018-08-12 11:54] LABS: Glucose,Whole Blood 144 mg/dL (75-99)
--- NOTE | 2018-08-12 13:06 | PN ---
PROGRESS NOTE DATE OF SERVICE: 08/11/2018 SUBJECTIVE: 52-year-old white male with COPD exacerbation tracheobronchitis has improved. Is improved from yesterday. His wheezing has decreased. He coughed a little bit and choked on some eggs today but he is breathing better in general. Vital signs reviewed. Cardiovascular S1-S2. Lungs transmitted upper sounds. Hematology negative Homans. Psych fair mood and affect. ASSESSMENT: 1. Chronic obstructive pulmonary disease exacerbation. 2. Tracheobronchitis. 3. Possible aspiration pneumonia. 4. Hypertension. 5. Dyslipidemia. 6. Prior stroke. 7. Chronic obstructive pulmonary disease. 8. Diabetes. Continue home medications for depression and diabetes and COPD. Updraft treatments. Prophylactic antibiotics with Zosyn for possible aspiration pneumonia. The patient is improving. Do a swallow eval to evaluate esophageal dysfunction. MMODL / IJN: [id number] /
[2018-08-12 17:11] LABS: Glucose,Whole Blood 170 mg/dL (75-99)
[2018-08-12 21:13] LABS: Glucose,Whole Blood 166 mg/dL (75-99)
[2018-08-12] MEDS: ATORVASTATIN 40 MG TAB PO SCH (21:16)
--- NOTE | 2018-08-12 23:45 | PN ---
PROGRESS NOTE Matt Guerrero is a 52-year-old with esophageal dysmobility, swallow eval in the morning will be done. COPD exacerbation. He will be treated with IV steroids and IV antibiotics. Possible discharge home in next 24-48 hours. Lungs clear. CARDIOVASCULAR: S1, S2. ASSESSMENT: 1. Chronic obstructive pulmonary disease exacerbation. 2. Aspiration pneumonia. 3. Prior cerebrovascular accident. 4. Esophageal dysmobility. 5. Thick nectar fluids will be needed. Continue on IV steroids and antibiotics. Discharge home in the morning. MMODL / IJN: [id number] /
[2018-08-13] MEDS: methylPREDNISolone SOD SUCCI 125 MG/2 ML VIAL IV SCH ×2 (05:08→11:15)
[2018-08-13 06:30] VITALS: BP 129/62; RESP 16; TEMP 98.1
[2018-08-13] MEDS: SYMBICORT 160-4.5 MCG INHALER INHALATION SCH (07:10)
[2018-08-13] MEDS: IPRATROPIUM-ALBUTEROL 3 ML NEB INHALATION SCH ×2 (07:10→11:05)
[2018-08-13 07:20] LABS: Glucose,Whole Blood 165 mg/dL (75-99)
[2018-08-13] MEDS: PIOGLITAZONE 15 MG TAB PO SCH (07:33)
[2018-08-13] MEDS: MONTELUKAST 10 MG TAB PO SCH (07:33)
[2018-08-13] MEDS: CLOPIDOGREL 75 MG TAB PO SCH (07:33)
[2018-08-13] MEDS: ESCITALOPRAM 10 MG TAB PO SCH (07:33)
[2018-08-13] MEDS: LABETALOL 200 MG TAB PO SCH (07:33)
[2018-08-13] MEDS: PIPERACILLIN-TAZOBACTAM 3.375 GM in SODIUM CHLORIDE 0.9% 100 ML IVPB SCH (07:34)
[2018-08-13] MEDS: INSULIN ASPART (NovoLOG) 100 UNIT/ML VIAL SQ SCH ×2 (07:34→12:55)
[2018-08-13] MEDS: QUEtiapine 50 MG TAB PO SCH (07:34)
[2018-08-13] MEDS: FAMOTIDINE 20 MG TAB PO SCH (07:34)
[2018-08-13] MEDS: amLODIPine 5 MG TAB PO SCH (07:34)
[2018-08-13] MEDS: metFORMIN 500 MG TAB PO SCH (07:34)
[2018-08-13] MEDS: LISINOPRIL 5 MG TAB PO SCH (07:34)
[2018-08-13 11:18] VITALS: PULSE 80
[2018-08-13 12:42] LABS: Glucose,Whole Blood 161 mg/dL (75-99)
--- NOTE | 2018-08-13 13:57 | P.DS ---
Providers Date of admission: 08/12/18 14:44 Expected date of discharge: 08/13/18 Attending physician: Trae Magana [facility] Course: FInal Diagnoses: -Acute COPD exacerbation -Possible Aspiration pneumonia,in a patient with history of Esophagel dysmobilty, though MBS reports no impairment. -Diabetes mellitus -Chronic CHF, type currently unknown -CAD, history of CABG -Gastroesophageal reflux -History of CVA/TIA with residual left-sided weakness -Pulmonary fibrosis -Memory impairment, type unknown. -Gait dysfunction, history of falls Hospital Course:This is a 52-year-old gentleman, history of COPD, CHF, CAD, aspiration status post CVA, residual left hemiparesis, bipolar, former nicotine dependence, history of substance abuse, and multiple other medical issues presented to the ER with worsening cough and dyspnea over the last 3 days. Reports had a procedure earlier in the week, evaluating for aspiration. Mother reports patient followed with ENT Dr. Ford on Monday, testing competed, informed he was aspirating; recommended regular diet with nectar thick liquids. Denies any recent fever or chills, chest pain, back pain, abdominal pain, nausea, vomiting, headaches, visual changes .Afebrile, normal WBC, tachypneic, maintaining O2 sats in the high 90s on room air.Chest x-ray reporting patchy peripheral left basilar density, similar but increased from prior studies, underlying scarring versus recurrent infiltrate. EKG reporting normal sinus rhythm. CBC, CMP normal. BNP negative. MBS reporting no impairment. Recommended ground diet and Thin Liquids r/t teeth extracted 2 weeks ago, dentures pending. Significant Clinical Improvement. Patient is being discharged home in a stable condition with guarded prognosis. GENERAL: ALert and oriented X3, No acute DIstress CARDIOVASCULAR: S1, S2 regular.No murmur RESPIRATION: Breath sounds diminished in the bases. ABDOMEN: Soft, nontender . No guarding. no masses palpable.Bowel sounds heard. LEGS: No edema. no swelling NERVOUS SYSTEM: Cranial N 2-12 grossly normal. Generalized weakness with Chronic left-sided weakness-CVA residual The impression and plan of care has been dictated as directed. : I performed a history and examination of this patient, discussed the same with the dictator. I agree with the dictator's note ,documented as a scribe. Any additional findings or plans will be noted. Time taken: 35 minutes Patient Condition at Discharge: Stable Plan - Discharge Summary New Discharge Prescriptions: New Amoxic-Pot Clav 875-125Mg [Augmentin 875-125] 1 tab PO Q12HR #10 tablet predniSONE 10 mg PO DIRECTED #30 tab Budesonide-Formot 160-4.5 Mcg [Symbicort 160-4.5 Mcg Inhaler] 2 puff INHALATION RT-BID #1 puff Continue Clopidogrel Bisulfate [Plavix] 75 mg PO DAILY Lisinopril [Zestril] 5 mg PO DAILY Labetalol HCl 400 mg PO BID Famotidine [Pepcid] 20 mg PO DAILY Escitalopram Oxalate [Lexapro] 10 mg PO DAILY Atorvastatin [Lipitor] 40 mg PO HS amLODIPine BESYLATE [Norvasc] 5 mg PO DAILY Montelukast [Singulair] 10 mg PO DAILY QUEtiapine [SEROquel] 50 mg PO BID Pioglitazone HCl [Actos] 15 mg PO DAILY #30 tablet metFORMIN HCL 1,000 mg PO BID Changed Ipratropium-Albuterol Nebulize [Duoneb 0.5 mg-3 mg/3 ml Soln] 3 ml INHALATION RT-TID #0 Discharge Medication List Atorvastatin [Lipitor] 40 mg PO HS 07/01/17 [History] Clopidogrel Bisulfate [Plavix] 75 mg PO DAILY 07/01/17 [History] Escitalopram Oxalate [Lexapro] 10 mg PO DAILY 07/01/17 [History] Famotidine [Pepcid] 20 mg PO DAILY 07/01/17 [History] Labetalol HCl 400 mg PO BID 07/01/17 [History] Lisinopril [Zestril] 5 mg PO DAILY 07/01/17 [History] amLODIPine BESYLATE [Norvasc] 5 mg PO DAILY 07/01/17 [History] Montelukast [Singulair] 10 mg PO DAILY 10/31/17 [History] QUEtiapine [SEROquel] 50 mg PO BID 10/31/17 [History] Pioglitazone HCl [Actos] 15 mg PO DAILY #30 tablet 12/09/17 [Rx] metFORMIN HCL 1,000 mg PO BID 02/23/18 [History] Amoxic-Pot Clav 875-125Mg [Augmentin 875-125] 1 tab PO Q12HR #10 tablet 08/13/18 [Rx] Budesonide-Formot 160-4.5 Mcg [Symbicort 160-4.5 Mcg Inhaler] 2 puff INHALATION RT-BID #1 puff 08/13/18 [Rx] Ipratropium-Albuterol Nebulize [Duoneb 0.5 mg-3 mg/3 ml Soln] 3 ml INHALATION RT-TID #0 08/13/18 [Rx] predniSONE 10 mg PO DIRECTED #30 tab 08/13/18 [Rx] Follow up Appointment(s)/Referral(s): Trae Magana MD [Primary Care Provider] - 1 Week [facility] Visiting Nurse, [NON-STAFF] - Ambulatory/Diagnostic Orders: Complete Blood Count w/diff [LAB.AMB] Time Frame: 3 Days, Location: None Selected Activity/Diet/Wound Care/Special Instructions: MBS pending. strict aspiration precautions Diet:Consist. Carb.,[place] thick liquids,
--- NOTE | 2018-08-13 13:59 | FL ---
COMPARISON: NONE DATE OF EXAM: 08/13/2018 HISTORY: Dysphasia A number of thin and thick substances were ingested under the care of the department of speech pathol ogy. There is no evidence of aspiration or penetration. There is no evidence of obstruction. IMPRESSION: 1. No evidence of aspiration or penetration.
== END 2018-08-13 15:42 | disposition home health service (06) | DRG 178 ==
LOC: EC 08:50 → 4MS4W 11:15 → OBSVTOIN 08-12 14:44
PROVIDERS: ADMIT Family Medicine; ATTEND Family Medicine
DX: J69.0 Pneumonitis due to inhalation of food and vomit (principal); I69.354 Hemiplegia and hemiparesis following cerebral infarction affecting left non-dominant side; J44.1 Chronic obstructive pulmonary disease with (acute) exacerbation; E11.9 Type 2 diabetes mellitus without complications; E78.5 Hyperlipidemia, unspecified; F32.9 Major depressive disorder, single episode, unspecified; I11.0 Hypertensive heart disease with heart failure; I25.10 Atherosclerotic heart disease of native coronary artery without angina pectoris; I25.2 Old myocardial infarction; I50.9 Heart failure, unspecified; K21.9 Gastro-esophageal reflux disease without esophagitis; Z79.02 Long term (current) use of antithrombotics/antiplatelets; Z79.84 Long term (current) use of oral hypoglycemic drugs; Z79.899 Other long term (current) drug therapy; Z80.42 Family history of malignant neoplasm of prostate; Z80.8 Family history of malignant neoplasm of other organs or systems; Z82.49 Family history of ischemic heart disease and other diseases of the circulatory system; Z83.3 Family history of diabetes mellitus; Z87.891 Personal history of nicotine dependence; Z91.81 History of falling; Z95.1 Presence of aortocoronary bypass graft; K22.4 Dyskinesia of esophagus; F19.11 Other psychoactive substance abuse, in remission; Z87.01 Personal history of pneumonia (recurrent); M10.9 Gout, unspecified
CPT/HCPCS: 36415; 71046; 74230; 80048; 80053; 83735; 83880; 85025; 85610; 85730; 93005; 94640; 96365; 96375; 99285

== ENCOUNTER → 2018-10-30 | Outpatient (CLI) | payer OTHER ==
[2018-10-30 15:12] LABS: African American GFR (CKD) >90 (>60 ml/min/1.73 sqM); Blood Urea Nitrogen 32 mg/dL (9-20)
--- NOTE | 2018-10-30 15:53 | CT ---
EXAMINATION TYPE: CT brain wo/w con DATE OF EXAM: 10/30/2018 COMPARISON: 02/23/2018 HISTORY: 52-year-old male confusion, Altered mental status. History of stroke. TECHNIQUE: Examination was done in axial plane without intravenous contrast. Coronal and sagittal r econstructions performed. CT DLP: 2338.5 mGycm Automated exposure control for dose reduction was used. FINDINGS: There is no evidence of acute intracranial hemorrhage, acute ischemic changes, mass, mass-effect, or extra-axial fluid collection. There is no effacement of cerebral sulci or basal subarachnoid cister ns. There is no hydrocephalus. There is no midline shift. Disla-white matter distinction is preserv ed. Moderate central atrophy with secondary hydrocephalus. Administration is calculated 0.39, unchanged. Old deep white matter infarcts on both sides and confluent white matter hypodensities. Dural venous sinuses are patent. No enhancing intracranial lesions. Paranasal sinuses and mastoid air cells well pneumatized. Orbits and globes are intact. IMPRESSION: 1. Stable moderate generalized atrophy and confluent changes of chronic small vessel ischemic disease with old deep white matter infarcts. 2. Stable hydrocephalus, likely on an ex vacuo basis from central atrophy. Correlate to exclude a com ponent of NPH. 3. No enhancing intracranial lesions. No acute intracranial abnormality seen.
== END | disposition home or self-care (01) ==
LOC: RADCTMAIN 14:39
PROVIDERS: ATTEND Family Medicine
DX: I67.82 Cerebral ischemia (principal); G91.9 Hydrocephalus, unspecified; G31.89 Other specified degenerative diseases of nervous system
CPT/HCPCS: 82565; 84520; 70470; 36415; Q9967

== ENCOUNTER 2020-05-12 15:42 | Emergency (ER) | payer MEDICARE, OTHER ==
--- NOTE | 2020-05-12 19:49 | ED ---
Psych HPI <MegcamByronZoran B - Last Filed: 05/13/20 00:51> - General Source: patient, family Mode of arrival: wheelchair - History of Present Illness MD Complaint: suicidal ideation, feels depressed <Baldomero Cleary - Last Filed: 05/13/20 12:15> - General Chief Complaint: Psychiatric Symptoms Stated Complaint: Mental Health Time Seen by Provider: 05/12/20 18:53 - History of Present Illness Initial Comments: This is a 54-year-old male history of CVA with left ross-plegia except for h emiparesis a left lower extremity from a previous stroke who is been feeling very depressed over last for 5 days he has thoughts of suicide he would like either shoot himself or stab himself he has been pulling his hair out. He does have a history of this many years ago. He was sent in by his doctor for evaluation. No alcohol no drugs involved as far as the patient's family knows. Patient denies any use. No other complaints or modifying factors at this time other than he does have some swelling to the left ankle he denies any trauma he is able to elevate his left leg against gravity does not recall any injury. This appears be a new development however. (Baldomero Cleary) - Related Data Home Medications Medication Instructions Recorded Confirmed Atorvastatin [Lipitor] 40 mg PO HS 07/01/17 05/12/20 amLODIPine BESYLATE [Norvasc] 5 mg PO DAILY 07/01/17 05/12/20 lisinopriL [Zestril] 5 mg PO DAILY 07/01/17 05/12/20 Montelukast [Singulair] 10 mg PO DAILY 10/31/17 05/12/20 QUEtiapine [SEROquel] 100 mg PO HS 10/31/17 05/12/20 metFORMIN HCL 500 mg PO BID 02/23/18 05/12/20 Cetirizine HCl [Zyrtec] 10 mg PO DAILY 05/12/20 05/12/20 Dextromethorphan HBr/Quinidine 1 cap PO Q12H 05/12/20 05/12/20 [Nuedexta 20-10 mg Capsule] Ergocalciferol (Vitamin D2) 50 mcg PO DAILY 05/12/20 05/12/20 [Vitamin D2 (2000 Iu)] Escitalopram [Lexapro] 20 mg PO DAILY 05/12/20 05/12/20 Metoprolol Tartrate [Lopressor] 25 mg PO BID 05/12/20 05/12/20 Multivit-Min/FA/Lycopen/Lutein 1 tab PO DAILY 05/12/20 05/12/20 [Centrum Silver Tablet] Omeprazole 40 mg PO DAILY 05/12/20 05/12/20 hydrALAZINE HCL [Apresoline] 20 mg PO Q8H 05/12/20 05/12/20 Previous Rx's Medication Instructions Recorded Pioglitazone HCl [Actos] 15 mg PO DAILY #30 tablet 12/09/17 Ipratropium-Albuterol Nebulize 3 ml INHALATION RT-TID #0 08/13/18 [Duoneb 0.5 mg-3 mg/3 ml Soln] Allergies Allergy/AdvReac Type Severity Reaction Status Date / Time perfume Allergy Dyspnea Verified 05/12/20 20:06 cheese AdvReac CONGESTION Verified 05/12/20 20:06 milk AdvReac CONGESTION Verified 05/12/20 20:06 Review of Systems ROS Other: All systems not noted in ROS Statement are negative. <Zoran Coppola - Last Filed: 05/13/20 00:51> ROS Other: All systems not noted in ROS Statement are negative. <Baldomero Cleary - Last Filed: 05/13/20 12:15> ROS Statement: Those systems with pertinent positive or pertinent negative responses have been documented in the HPI. Past Medical History Past Medical History: Asthma, Coronary Artery Disease (CAD), Chest Pain / Angina, Heart Failure, COPD, CVA/TIA, Diabetes Mellitus, GERD/Reflux, Hyperlipidemia, Hypertension, Memory Impairment, Myocardial Infarction ([place]), Pneumonia Additional Past Medical History / Comment(s): Pt recently admitted to [facility] with COPD, pulmonary fibrosis and tracheobronchitis. Other hx: 2017 Pt had 4 vessel CABG and had a CVA post op day 2-has L sided severe weakness and memory issues-his mother is his legal guardian, he stands with walker briefly to transfer into wheelchair, sometimes they use a gait belt, he has had falls, [place] 2017, tracheobronchitis, NIDDM type II but told no longer diabetic, reddened skin scrotal area, occasionally incontinent of urine/stool. Last Myocardial Infarction Date:: 2017 History of Any Multi-Drug Resistant Organisms: None Reported Past Surgical History: Appendectomy, Coronary Bypass/CABG, Heart Catheteriza tion, Orthopedic Surgery Additional Past Surgical History / Comment(s): 2017 CABG 4 vessel, tracheostomy, L femur fracture with surgical repair. Past Anesthesia/Blood Transfusion Reactions: No Reported Reaction Past Psychological History: Bipolar Smoking Status: Former smoker Past Alcohol Use History: None Reported Past Drug Use History: None Reported - Past Family History Mother Family Medical History: Hypertension Father Family Medical History: Cancer, Coronary Artery Disease (CAD), Diabetes Mellitus, Pneumonia, Prostate Disorder Additional Family Medical History / Comment(s): Bipolar disorder, throat cancer, prostate cancer <Baldomero Cleary - Last Filed: 05/13/20 12:15> General Exam Limitations: altered mental status, physical limitation General appearance: alert, anxious Head exam: Present: atraumatic, normocephalic, normal inspection Eye exam: Present: normal appearance, PERRL, EOMI. Absent: scleral icterus, conjunctival injection, periorbital swelling ENT exam: Present: other (He does demonstrate some deviation of his tongue secondary to the previous stroke. Additionally some evidence of a slight asymmetry) Neck exam: Present: normal inspection, full ROM, other (No stridor JVD or bruits). Absent: tenderness, meningismus, lymphadenopathy Respiratory exam: Present: normal lung sounds bilaterally. Absent: respiratory distress, wheezes, rales, rhonchi, stridor Cardiovascular Exam: Present: regular rate, normal rhythm, normal heart sounds. Absent: systolic murmur, diastolic murmur, rubs, gallop, clicks GI/Abdominal exam: Present: soft, normal bowel sounds. Absent: distended, tenderness, guarding, rebound, rigid Extremities exam: Present: full ROM, normal capillary refill. Absent: normal inspection (Some evidence of edema to the left ankle no tenderness palpation no definite step-off or crepitation.), tenderness, pedal edema, joint swelling, calf tenderness Back exam: Present: normal inspection Neurological exam: Present: alert, oriented X3, CN II-XII intact, motor sensory deficit Psychiatric exam: Present: normal mood, depressed, flat affect, suicidal ideation Skin exam: Present: warm, dry, intact, normal color. Absent: rash <Baldomero Cleary - Last Filed: 05/13/20 12:15> - General Exam Comments Initial Comments: This is a well-developed sec appearing male who is awake alert oriented 3 (Baldomero Cleary) Course <Zoran Coppola - Last Filed: 05/13/20 00:51> <Baldomero Cleary - Last Filed: 05/13/20 12:15> Vital Signs 05/12/20 05/13/20 18:16 02:00 Temperature 98.5 F 98.1 F Pulse Rate 83 81 Respiratory 20 18 Rate Blood Pressure 162/101 150/90 O2 Sat by Pulse 94 L 98 Oximetry - Reevaluation(s) Reevaluation #1: 05/12/20 21:00 Patient's x-rays negative for evidence of acute fractures or soft tissue edema. I did discuss case with the family and the patient also did endorse the case to Dr. Faust at our shift change pending EPS evaluation. (Baldomero Cleary) Reevaluation #2: 05/13/20 00:52 medically clear for psychiatric evaluation (Zoran Coppola) Reevaluation #3: 05/13/20 00:52 Seen in evaluation by psychiatry (Zoran Coppola) Medical Decision Making <Zoran Coppola - Last Filed: 05/13/20 00:51> - Lab Data Result diagrams: 05/13/20 01:32 05/13/20 01:32 <Baldomero Celary - Last Filed: 05/13/20 12:15> - Medical Decision Making 54 male seen in however psychiatry, will be transferred for inpatient psychiatric evaluation and treatment (Zoran Coppola) - Lab Data Lab Results 05/13/20 05/13/20 05/13/20 Range/Units 01:32 01:32 01:32 WBC 8.5 (3.8-10.6) k/uL RBC 4.51 (4.30-5.90) m/uL Hgb 13.9 (13.0-17.5) gm/dL Hct 38.7 L (39.0-53.0) % MCV 86.0 (80.0-100.0) fL MCH 30.9 (25.0-35.0) pg MCHC 35.9 (31.0-37.0) g/dL RDW 12.9 (11.5-15.5) % Plt Count 194 (150-450) k/uL MPV 7.7 Sodium 143 (137-145) mmol/L Potassium 3.9 (3.5-5.1) mmol/L Chloride 103 (98-107) mmol/L Carbon Dioxide 31 H (22-30) mmol/L Anion Gap 9 mmol/L BUN 28 H (9-20) mg/dL Creatinine 1.04 (0.66-1.25) mg/dL Est GFR (CKD-EPI)AfAm >90 (>60 ml/min/1.73 sqM) Est GFR (CKD-EPI)NonAf 82 (>60 ml/min/1.73 sqM) Glucose 110 H (74-99) mg/dL Calcium 10.2 (8.4-10.2) mg/dL Urine Color Urine Appearance (Clear) Urine pH (5.0-8.0) Ur Specific [place] (1.001-1.035) Urine Protein (Negative) Urine Glucose (UA) (Negative) Urine Ketones (Negative) Urine Blood (Negative) Urine Nitrite (Negative) Urine Bilirubin (Negative) Urine Urobilinogen (<2.0) mg/dL Ur Leukocyte Esterase (Negative) Urine RBC (0-5) /hpf Urine WBC (0-5) /hpf Ur Squamous Epith Cells (0-4) /hpf Calcium Oxalate Crystal (None) /hpf Urine Bacteria (None) /hpf Urine Mucus (None) /hpf Urine Yeast (Budding) (None) /hpf Urine Opiates Screen (NotDetected) Ur Oxycodone Screen (NotDetected) Urine Methadone Screen (NotDetected) Ur Propoxyphene Screen (NotDetected) Ur Barbiturates Screen (NotDetected) U Tricyclic Antidepress (NotDetected) Ur Phencyclidine Scrn (NotDetected) Ur Amphetamines Screen (NotDetected) U Methamphetamines Scrn (NotDetected) U Benzodiazepines Scrn (NotDetected) Urine Cocaine Screen (NotDetected) U Marijuana (THC) Screen (NotDetected) Coronavirus (PCR) Not Detected (Not Detectd) 05/13/20 05/13/20 Range/Units 02:01 02:01 WBC (3.8-10.6) k/uL RBC (4.30-5.90) m/uL Hgb (13.0-17.5) gm/dL Hct (39.0-53.0) % MCV (80.0-100.0) fL MCH (25.0-35.0) pg MCHC (31.0-37.0) g/dL RDW (11.5-15.5) % Plt Count (150-450) k/uL MPV Sodium (137-145) mmol/L Potassium (3.5-5.1) mmol/L Chloride (98-107) mmol/L Carbon Dioxide (22-30) mmol/L Anion Gap mmol/L BUN (9-20) mg/dL Creatinine (0.66-1.25) mg/dL Est GFR (CKD-EPI)AfAm (>60 ml/min/1.73 sqM) Est GFR (CKD-EPI)NonAf (>60 ml/min/1.73 sqM) Glucose (74-99) mg/dL Calcium (8.4-10.2) mg/dL Urine Color Yellow Urine Appearance Cloudy (Clear) Urine pH 5.5 (5.0-8.0) Ur Specific [place] 1.026 (1.001-1.035) Urine Protein 1+ H (Negative) Urine Glucose (UA) Negative (Negative) Urine Ketones Negative (Negative) Urine Blood Moderate H (Negative) Urine Nitrite Negative (Negative) Urine Bilirubin Negative (Negative) Urine Urobilinogen 2.0 (<2.0) mg/dL Ur Leukocyte Esterase Negative (Negative) Urine RBC 109 H (0-5) /hpf Urine WBC 4 (0-5) /hpf Ur Squamous Epith Cells <1 (0-4) /hpf Calcium Oxalate Crystal Rare H (None) /hpf Urine Bacteria Rare H (None) /hpf Urine Mucus Occasional H (None) /hpf Urine Yeast (Budding) Few H (None) /hpf Urine Opiates Screen Not Detected (NotDetected) Ur Oxycodone Screen Not Detected (NotDetected) Urine Methadone Screen Not Detected (NotDetected) Ur Propoxyphene Screen Not Detected (NotDetected) Ur Barbiturates Screen Not Detected (NotDetected) U Tricyclic Antidepress Detected H (NotDetected) Ur Phencyclidine Scrn Not Detected (NotDetected) Ur Amphetamines Screen Not Detected (NotDetected) U Methamphetamines Scrn Not Detected (NotDetected) U Benzodiazepines Scrn Not Detected (NotDetected) Urine Cocaine Screen Not Detected (NotDetected) U Marijuana (THC) Screen Not Detected (NotDetected) Coronavirus (PCR) (Not Detectd) Disposition Is patient prescribed a controlled substance at d/c from ED?: No <Zoran Coppola - Last Filed: 05/13/20 00:51> <Baldomero Cleary - Last Filed: 05/13/20 12:15> Clinical Impression: Depression, Suicidal ideation Disposition: TRANSFER TO PSYCH HOSP/UNIT Condition: Fair Referrals: Trae Magana MD [Primary Care Provider] - 1-2 days
--- NOTE | 2020-05-12 19:51 | XR ---
EXAMINATION TYPE: XR ankle limited LT DATE OF EXAM: 05/12/2020 COMPARISON: NONE HISTORY: Views TECHNIQUE: 2 views FINDINGS: Ankle mortise is anatomic. There is mild soft tissue swelling over the lateral malleolus. I see no fracture nor dislocation. There is an Achilles calcaneal spur. IMPRESSION: Mild soft tissue swelling. No fracture seen.
[2020-05-13] MEDS ORDERED: METOPROLOL TARTRATE 25 MG TAB PO STA (01:25)
[2020-05-13] MEDS ORDERED: metFORMIN 500 MG TAB PO STA (01:25)
[2020-05-13] MEDS ORDERED: QUEtiapine 100 MG TAB PO STA (01:27)
[2020-05-13] MEDS ORDERED: ATORVASTATIN 40 MG TAB PO STA (01:27)
[2020-05-13] MEDS: NON FORMULARY DRUG (Dextromethorphan Hbr/Quinidine [Nuedexta 20-10 Mg Capsule] 1 EACH Caps PO SCH ×2 (01:28→21:09)
[2020-05-13] MEDS: hydrALAZINE HCL 10 MG TAB PO SCH ×4 (01:41→17:26)
[2020-05-13] MEDS: QUEtiapine 100 MG TAB PO SCH ×2 (01:43→21:29)
[2020-05-13 01:56] LABS: HCT 38.7 % (39.0-53.0); HGB 13.9 gm/dL (13.0-17.5); MCH 30.9 pg (25.0-35.0); MCHC 35.9 g/dL (31.0-37.0); Mean Platelet Volume 7.7; Platelet Count 194 k/uL (150-450); RBC 4.51 m/uL (4.30-5.90); RDW 12.9 % (11.5-15.5); WBC 8.5 k/uL (3.8-10.6)
[2020-05-13 02:35] LABS: African American GFR (CKD) >90 (>60 ml/min/1.73 sqM); Anion Gap 9 mmol/L; Blood Urea Nitrogen 28 mg/dL (9-20); Calcium 10.2 mg/dL (8.4-10.2); Carbon Dioxide 31 mmol/L (22-30); Chloride 103 mmol/L (98-107); Glucose 110 mg/dL (74-99); Non-African American GFR(CKD) 82 (>60 ml/min/1.73 sqM); Potassium 3.9 mmol/L (3.5-5.1); Sodium 143 mmol/L (137-145)
[2020-05-13 03:09] LABS: Appearance,Urine Cloudy (Clear); Bacteria,Urine Rare /hpf; Bilirubin,Urine Negative (Negative); Blood,Urine Moderate (Negative); Budding Yeast,Urine Few /hpf; Calcium Oxalate Crystals,Urine Rare /hpf; Color,Urine Yellow; Glucose,Urine (UA) Negative (Negative); Ketones,Urine Negative (Negative); Leukocyte Esterase,Urine Negative (Negative); Mucus,Urine Occasional /hpf; Nitrite,Urine Negative (Negative); PH, Urine 5.5 (5.0-8.0); Protein,Urine 1+ (Negative); RBC,Urine 109 /hpf (0-5); Specific Gravity,Urine 1.026 (1.001-1.035); Squamous Epithelial Cell,Urine <1 /hpf (0-4); WBC,Urine 4 /hpf (0-5)
[2020-05-13 03:11] LABS: Amphetamine Screen,Urine Not Detected (NotDetected); Barbiturate Screen,Urine Not Detected (NotDetected); Benzodiazepines Screen,Urine Not Detected (NotDetected); Cocaine Screen,Urine Not Detected (NotDetected); Methadone Screen, Urine Not Detected (NotDetected); Opiate Screen,Urine Not Detected (NotDetected); Oxycodone Screen, Urine Not Detected (NotDetected); Phencyclidine Screen,Urine Not Detected (NotDetected); Tricyclic Antidepressant,Urine Detected (NotDetected); Urn Cannabinoid Scrn Not Detected (NotDetected)
[2020-05-13] MEDS ORDERED: NON FORMULARY DRUG (Ergocalciferol (Vitamin D2) [Vitamin D2 (2000 Iu)] 50 MCG Tablet) PO SCH (09:00)
[2020-05-13] MEDS: amLODIPine 5 MG TAB PO SCH (14:21)
[2020-05-13] MEDS: lisinopriL 5 MG TAB PO SCH (14:21)
[2020-05-13] MEDS: ESCITALOPRAM 20 MG TAB PO SCH (14:21)
[2020-05-13] MEDS: LORATADINE 10 MG TAB PO SCH (14:22)
[2020-05-13] MEDS: metFORMIN 500 MG TAB PO SCH ×2 (14:22→21:29)
[2020-05-13] MEDS: METOPROLOL TARTRATE 25 MG TAB PO SCH ×2 (14:23→21:29)
[2020-05-13] MEDS: MONTELUKAST 10 MG TAB PO SCH (14:24)
[2020-05-13] MEDS: PANTOPRAZOLE 40 MG TABLET PO SCH (14:24)
[2020-05-13] MEDS: IPRATROPIUM-ALBUTEROL 3 ML NEB INHALATION SCH ×3 (15:18→19:29)
[2020-05-13] MEDS: PIOGLITAZONE 15 MG TAB PO SCH (17:26)
[2020-05-13] MEDS: VIT A,C & E-LUTEIN-MINERALS 1 EACH TAB PO SCH (17:26)
[2020-05-13] MEDS: ATORVASTATIN 40 MG TAB PO SCH (21:29)
[2020-05-14] MEDS: NON FORMULARY DRUG (Dextromethorphan Hbr/Quinidine [Nuedexta 20-10 Mg Capsule] 1 EACH Caps PO SCH ×2 (01:50→12:25)
[2020-05-14] MEDS: hydrALAZINE HCL 10 MG TAB PO SCH ×4 (02:55→22:00)
[2020-05-14] MEDS: PANTOPRAZOLE 40 MG TABLET PO SCH (10:21)
[2020-05-14] MEDS: MONTELUKAST 10 MG TAB PO SCH (10:21)
[2020-05-14] MEDS: metFORMIN 500 MG TAB PO SCH ×2 (10:21→21:43)
[2020-05-14] MEDS: amLODIPine 5 MG TAB PO SCH (10:21)
[2020-05-14] MEDS: METOPROLOL TARTRATE 25 MG TAB PO SCH ×2 (10:22→23:00)
[2020-05-14] MEDS: LORATADINE 10 MG TAB PO SCH (10:22)
[2020-05-14] MEDS: ESCITALOPRAM 20 MG TAB PO SCH (12:31)
[2020-05-14] MEDS: lisinopriL 5 MG TAB PO SCH (12:31)
[2020-05-14] MEDS: VIT A,C & E-LUTEIN-MINERALS 1 EACH TAB PO SCH (13:04)
[2020-05-14] MEDS: PIOGLITAZONE 15 MG TAB PO SCH (13:04)
[2020-05-14] MEDS: ATORVASTATIN 40 MG TAB PO SCH (21:44)
[2020-05-14] MEDS: QUEtiapine 100 MG TAB PO SCH (22:00)
[2020-05-14] MEDS: IPRATROPIUM-ALBUTEROL 3 ML NEB INHALATION SCH ×3 (22:07→22:09)
[2020-05-15 00:38] LABS: Glucose,Whole Blood 95 mg/dL (75-99)
[2020-05-15] MEDS: NON FORMULARY DRUG (Dextromethorphan Hbr/Quinidine [Nuedexta 20-10 Mg Capsule] 1 EACH Caps PO SCH (00:42)
[2020-05-15] MEDS: hydrALAZINE HCL 10 MG TAB PO SCH ×2 (01:00→09:00)
[2020-05-15] MEDS: IPRATROPIUM-ALBUTEROL 3 ML NEB INHALATION SCH ×3 (08:00→13:56)
[2020-05-15] MEDS: PANTOPRAZOLE 40 MG TABLET PO SCH ×2 (09:00→13:40)
[2020-05-15] MEDS: MONTELUKAST 10 MG TAB PO SCH (09:00)
[2020-05-15] MEDS: METOPROLOL TARTRATE 25 MG TAB PO SCH (09:00)
[2020-05-15] MEDS: VIT A,C & E-LUTEIN-MINERALS 1 EACH TAB PO SCH ×2 (09:00→14:15)
[2020-05-15] MEDS: ESCITALOPRAM 20 MG TAB PO SCH ×2 (09:00→13:40)
[2020-05-15] MEDS: PIOGLITAZONE 15 MG TAB PO SCH ×2 (09:00→14:15)
[2020-05-15] MEDS: lisinopriL 5 MG TAB PO SCH ×2 (09:00→13:40)
[2020-05-15] MEDS: metFORMIN 500 MG TAB PO SCH ×2 (09:00→13:40)
[2020-05-15] MEDS: LORATADINE 10 MG TAB PO SCH ×2 (09:00→13:40)
[2020-05-15] MEDS: amLODIPine 5 MG TAB PO SCH ×2 (09:00→13:40)
[2020-05-15 17:26] LABS: Glucose,Whole Blood 136 mg/dL (75-99)
[2020-05-16] MEDS: ATORVASTATIN 40 MG TAB PO SCH ×2 (08:30→21:39)
[2020-05-16] MEDS: NON FORMULARY DRUG (Dextromethorphan Hbr/Quinidine [Nuedexta 20-10 Mg Capsule] 1 EACH Caps PO SCH ×3 (08:30→13:20)
[2020-05-16] MEDS: hydrALAZINE HCL 10 MG TAB PO SCH ×4 (08:31→16:30)
[2020-05-16] MEDS: METOPROLOL TARTRATE 25 MG TAB PO SCH ×4 (08:31→21:38)
[2020-05-16] MEDS: metFORMIN 500 MG TAB PO SCH ×3 (08:32→21:38)
[2020-05-16] MEDS: IPRATROPIUM-ALBUTEROL 3 ML NEB INHALATION SCH ×4 (08:32→21:38)
[2020-05-16] MEDS: MONTELUKAST 10 MG TAB PO SCH ×2 (08:32→09:11)
[2020-05-16] MEDS: QUEtiapine 100 MG TAB PO SCH ×2 (08:33→22:03)
[2020-05-16] MEDS: amLODIPine 5 MG TAB PO SCH ×2 (09:13→09:15)
[2020-05-16] MEDS: ESCITALOPRAM 20 MG TAB PO SCH (09:13)
[2020-05-16] MEDS: lisinopriL 5 MG TAB PO SCH (09:14)
[2020-05-16] MEDS: PANTOPRAZOLE 40 MG TABLET PO SCH (09:14)
[2020-05-16] MEDS: LORATADINE 10 MG TAB PO SCH (09:15)
[2020-05-16] MEDS: PIOGLITAZONE 15 MG TAB PO SCH (10:20)
[2020-05-16] MEDS: VIT A,C & E-LUTEIN-MINERALS 1 EACH TAB PO SCH (10:20)
[2020-05-16] MEDS: DEXTROMETHORPHAN HBR PO SCH (19:19)
[2020-05-16] MEDS: QUINIDINE PO SCH (19:19)
[2020-05-17] MEDS: hydrALAZINE HCL 10 MG TAB PO SCH ×3 (05:18→17:57)
[2020-05-17] MEDS: QUINIDINE PO SCH ×2 (07:20→20:57)
[2020-05-17] MEDS: DEXTROMETHORPHAN HBR PO SCH ×2 (07:20→20:57)
[2020-05-17] MEDS: LORATADINE 10 MG TAB PO SCH (08:35)
[2020-05-17] MEDS: MONTELUKAST 10 MG TAB PO SCH (08:35)
[2020-05-17] MEDS: PANTOPRAZOLE 40 MG TABLET PO SCH (08:35)
[2020-05-17] MEDS: lisinopriL 5 MG TAB PO SCH (08:35)
[2020-05-17] MEDS: ESCITALOPRAM 20 MG TAB PO SCH (08:35)
[2020-05-17] MEDS: METOPROLOL TARTRATE 25 MG TAB PO SCH ×2 (08:35→20:55)
[2020-05-17] MEDS: metFORMIN 500 MG TAB PO SCH ×2 (08:35→20:55)
[2020-05-17] MEDS: PIOGLITAZONE 15 MG TAB PO SCH (09:17)
[2020-05-17] MEDS: VIT A,C & E-LUTEIN-MINERALS 1 EACH TAB PO SCH (09:17)
[2020-05-17] MEDS: IPRATROPIUM-ALBUTEROL 3 ML NEB INHALATION SCH ×3 (09:24→20:27)
[2020-05-17] MEDS ORDERED: ACETAMINOPHEN TAB 325 MG TAB PO PRN (18:08)
[2020-05-17] MEDS ORDERED: NON FORMULARY DRUG (Dextromethorphan Hbr/Quinidine [Nuedexta 20-10 Mg Capsule] 1 CAP) PO SCH (20:00)
[2020-05-17] MEDS: ATORVASTATIN 40 MG TAB PO SCH (20:55)
[2020-05-17] MEDS: QUEtiapine 100 MG TAB PO SCH (22:46)
[2020-05-18] MEDS: hydrALAZINE HCL 10 MG TAB PO SCH ×2 (01:28→09:19)
[2020-05-18 08:02] VITALS: RESP 20
[2020-05-18] MEDS: PANTOPRAZOLE 40 MG TABLET PO SCH (09:20)
[2020-05-18] MEDS: METOPROLOL TARTRATE 25 MG TAB PO SCH (09:20)
[2020-05-18] MEDS: MONTELUKAST 10 MG TAB PO SCH (09:20)
[2020-05-18] MEDS: ESCITALOPRAM 20 MG TAB PO SCH (09:20)
[2020-05-18] MEDS: LORATADINE 10 MG TAB PO SCH (09:21)
[2020-05-18] MEDS: amLODIPine 5 MG TAB PO SCH (09:21)
[2020-05-18] MEDS: metFORMIN 500 MG TAB PO SCH (09:21)
[2020-05-18] MEDS: lisinopriL 5 MG TAB PO SCH (09:25)
[2020-05-18] MEDS: IPRATROPIUM-ALBUTEROL 3 ML NEB INHALATION SCH (09:56)
[2020-05-18 12:47] VITALS: TEMP 98
--- NOTE | 2020-05-18 14:14 | P.PN ---
Progress Note - Text Progress Note Date: 05/18/20 Interval History: Patient was seen at bedside. Initially, the patient presented with thoughts of suicide with plans to either shoot himself or stab himself as well as pulling his hair out. Currently, the patient is not reporting any suicidal or homicidal ideation, intention, and/or plan. He is bright and future oriented. The patient furthermore has no significant means to harm himself as he is significantly debilitated due to his history of CVA. He has been appropriate with staff in the emergency room for the past 72 hours. Mental Status Exam: General Appearance: Patient appears to be stated age is alert, directable, and cooperative. Patient is of a thin build with good hygiene and grooming. Behavior: Patient is seated upright in his bed without any agitated behavior. Psychomotor activity is normal. Eye contact is appropriate. Speech: Patient's speech is fluent and nonpressured. Speech is spontaneous, with normal rate, tone, and volume. Mood/Affect: Mood is "feeling okay!" affect is congruent and euthymic to bright. Suicidality/Homicidality: Patient denies having any suicidal or homicidal ideation intent or plan. Perceptions: Patient denies any visual hallucinations and denies any auditory hallucinations Though content/process: There is no evidence of any delusional thought content and thought process is linear and goal-directed. Memory and concentration: AOX3, grossly intact for the purposes of this session Judgment and insight: Improving mildly Assessment Adjustment disorder Plan: -Patient DOES NOT meet criteria for inpatient psychiatric hospitalization at this time. -He has numerous protective factors including a supportive family, supervised living situation, and no prior attempts at suicide. The patient will be negative certified and is cleared psychiatrically for discharge.
[2020-05-18 15:02] VITALS: BP 144/89; PULSE 80
== END 2020-05-18 15:02 ==
LOC: EC 15:42
DX: F32.9 Major depressive disorder, single episode, unspecified (principal); R45.851 Suicidal ideations; M79.89 Other specified soft tissue disorders; J44.9 Chronic obstructive pulmonary disease, unspecified; I25.119 Atherosclerotic heart disease of native coronary artery with unspecified angina pectoris; I11.0 Hypertensive heart disease with heart failure; I50.9 Heart failure, unspecified; E11.9 Type 2 diabetes mellitus without complications; K21.9 Gastro-esophageal reflux disease without esophagitis; E78.5 Hyperlipidemia, unspecified; I25.2 Old myocardial infarction; I69.354 Hemiplegia and hemiparesis following cerebral infarction affecting left non-dominant side; Z79.84 Long term (current) use of oral hypoglycemic drugs; Z79.899 Other long term (current) drug therapy; Z99.3 Dependence on wheelchair; Z87.891 Personal history of nicotine dependence; Z91.048 Other nonmedicinal substance allergy status; Z91.011 Allergy to milk products; Z91.018 Allergy to other foods; Z95.1 Presence of aortocoronary bypass graft
CPT/HCPCS: 36415; 80048; 80306; 81001; 82075; 85027; 87635; 94640; 99285